=== PATIENT | male | born 1940 | race Caucasian/White ===

== ENCOUNTER 2016-04-13 10:13 | Inpatient (IN) | payer OTHER, MEDICARE ==
[2016-04-13] MEDS ORDERED: IPRATROPIUM-ALBUTEROL 3 ML NEB INHALATION STA (10:38)
--- NOTE | 2016-04-13 10:41 | ED ---
General Adult HPI - General Chief complaint: Shortness of Breath Stated complaint: diff breathing Time Seen by Provider: 04/13/16 10:33 Source: patient, family, RN notes reviewed Mode of arrival: wheelchair Limitations: no limitations - History of Present Illness Initial comments: Patient is a pleasant 76-year-old male presenting to the emergency department with difficulty in breathing. Onset was around 2 days ago. Symptoms have been fairly persistent since that time. Occasional mild cough. No leg pain or leg swelling. No chest pain. No history of similar symptoms previously. No fever. Symptoms do worsen with exertion. - Related Data Allergies Allergy/AdvReac Type Severity Reaction Status Date / Time No Known Allergies Allergy Verified 04/13/16 10:20 Review of Systems ROS Statement: Those systems with pertinent positive or pertinent negative responses have been documented in the HPI. ROS Other: All systems not noted in ROS Statement are negative. Constitutional: Denies: fever, chills Eyes: Denies: eye pain ENT: Denies: ear pain Respiratory: Reports: dyspnea Cardiovascular: Denies: chest pain Endocrine: Reports: fatigue Gastrointestinal: Denies: abdominal pain Genitourinary: Denies: dysuria Musculoskeletal: Denies: back pain Skin: Denies: rash Neurological: Denies: weakness Past Medical History Past Medical History: Hyperlipidemia, Osteoarthritis (OA) Additional Past Medical History / Comment(s): back pain History of Any Multi-Drug Resistant Organisms: None Reported Past Surgical History: Joint Replacement Additional Past Surgical History / Comment(s): bilateral knee replacement, cataract removal Past Psychological History: No Psychological Hx Reported Smoking Status: Former smoker Past Alcohol Use History: Occasional Past Drug Use History: None Reported General Exam Limitations: no limitations General appearance: alert, in no apparent distress Head exam: Present: atraumatic Eye exam: Present: normal appearance, PERRL ENT exam: Present: normal oropharynx Neck exam: Present: normal inspection Respiratory exam: Present: rales (Right base) Cardiovascular Exam: Present: regular rate, normal rhythm GI/Abdominal exam: Present: soft. Absent: tenderness Extremities exam: Present: normal inspection. Absent: pedal edema, calf tenderness Neurological exam: Present: alert Psychiatric exam: Present: normal affect, normal mood Skin exam: Absent: rash Course Vital Signs 04/13/16 04/13/16 04/13/16 10:17 10:56 11:10 Temperature 97.5 F L Pulse Rate 94 105 H 105 H Respiratory 20 Rate Blood Pressure 117/64 O2 Sat by Pulse 93 L Oximetry EKG Findings - EKG Comments: EKG Findings:: Sinus tachycardia 106. CT 128. QRS 98. QT 346. QTc 459. Normal axis. Normal QRS. Lateral ST depression. Medical Decision Making - Medical Decision Making Patient reexamined and resting comfortably in bed. Patient still remained somewhat short of breath. Patient and family updated on results and plan. Patient presents with non-ST elevation PA and congestive heart failure. Patient likely infarcted over the past couple of days. Patient does admit to having some upper back pain recently over still denies ever having chest discomfort. Case was discussed in detail with Dr. Strong, who will admit for Dr. Perez. Case also discussed with Dr. Ramirez who will consult and recommends stat echo. Admission orders placed. Heparin started. - Lab Data Result diagrams: 04/13/16 10:43 04/13/16 09:00 Lab Results 04/13/16 04/13/16 04/13/16 Range/Units 09:00 09:00 10:43 WBC 11.7 H (3.8-10.6) k/uL RBC 4.87 (4.30-5.90) m/uL Hgb 14.6 (13.0-17.5) gm/dL Hct 43.7 (39.0-53.0) % MCV 89.8 (80.0-100.0) fL MCH 30.1 (25.0-35.0) pg MCHC 33.5 (31.0-37.0) g/dL RDW 13.5 (11.5-15.5) % Plt Count 200 (150-450) k/uL Neutrophils % 78 % Lymphocytes % 13 % Monocytes % 6 % Eosinophils % 1 % Basophils % 0 % Neutrophils # 9.1 H (1.3-7.7) k/uL Lymphocytes # 1.5 (1.0-4.8) k/uL Monocytes # 0.7 (0-1.0) k/uL Eosinophils # 0.1 (0-0.7) k/uL Basophils # 0.0 (0-0.2) k/uL Sodium 140 (137-145) mmol/L Potassium 4.3 (3.5-5.1) mmol/L Chloride 107 (98-107) mmol/L Carbon Dioxide 21 L (22-30) mmol/L Anion Gap 12 mmol/L BUN 23 H (9-20) mg/dL Creatinine 1.06 (0.66-1.25) mg/dL Est GFR (MDRD) Af Amer >60 (>60 ml/min/1.73 sqM) Est GFR (MDRD) Non-Af >60 (>60 ml/min/1.73 sqM) Glucose 134 H (74-99) mg/dL Calcium 8.6 (8.4-10.2) mg/dL Total Bilirubin 1.7 H (0.2-1.3) mg/dL AST 92 H (17-59) U/L ALT 71 (21-72) U/L Alkaline Phosphatase 68 (38-126) U/L Total Creatine Kinase 221 H (55-170) U/L CK-MB (CK-2) 26.3 H* (0.0-2.4) ng/mL CK-MB (CK-2) Rel Index 11.9 Troponin I 3.820 H* (0.000-0.034) ng/mL NT-Pro-B Natriuret Pep pg/mL Total Protein 6.8 (6.3-8.2) g/dL Albumin 3.8 (3.5-5.0) g/dL 04/13/16 Range/Units 10:43 WBC (3.8-10.6) k/uL RBC (4.30-5.90) m/uL Hgb (13.0-17.5) gm/dL Hct (39.0-53.0) % MCV (80.0-100.0) fL MCH (25.0-35.0) pg MCHC (31.0-37.0) g/dL RDW (11.5-15.5) % Plt Count (150-450) k/uL Neutrophils % % Lymphocytes % % Monocytes % % Eosinophils % % Basophils % % Neutrophils # (1.3-7.7) k/uL Lymphocytes # (1.0-4.8) k/uL Monocytes # (0-1.0) k/uL Eosinophils # (0-0.7) k/uL Basophils # (0-0.2) k/uL Sodium (137-145) mmol/L Potassium (3.5-5.1) mmol/L Chloride (98-107) mmol/L Carbon Dioxide (22-30) mmol/L Anion Gap mmol/L BUN (9-20) mg/dL Creatinine (0.66-1.25) mg/dL Est GFR (MDRD) Af Amer (>60 ml/min/1.73 sqM) Est GFR (MDRD) Non-Af (>60 ml/min/1.73 sqM) Glucose (74-99) mg/dL Calcium (8.4-10.2) mg/dL Total Bilirubin (0.2-1.3) mg/dL AST (17-59) U/L ALT (21-72) U/L Alkaline Phosphatase (38-126) U/L Total Creatine Kinase (55-170) U/L CK-MB (CK-2) (0.0-2.4) ng/mL CK-MB (CK-2) Rel Index Troponin I (0.000-0.034) ng/mL NT-Pro-B Natriuret Pep 8880 pg/mL Total Protein (6.3-8.2) g/dL Albumin (3.5-5.0) g/dL - Radiology Data Radiology results: image reviewed (A history concerning for congestive heart failure) Critical Care Time Critical Care Time: Yes Total Critical Care Time: 34 Disposition Clinical Impression: Congestive heart failure, NSTEMI (non-ST elevated myocardial infarction) Disposition: ADMITTED IP TO THIS [facility] Condition: Serious
[2016-04-13 10:56] LABS: Basophils % (A) 0 %; CH 31.2; CHCM 34.9; Eosinophils # (A) 0.1 k/uL (0-0.7); Eosinophils % (A) 1 %; HCT 43.7 % (39.0-53.0); HDW 2.58; HGB 14.6 gm/dL (13.0-17.5); Luc # (Auto) 0.21; Luc % (Auto) 2; Lymphocytes # (A) 1.5 k/uL (1.0-4.8); Lymphocytes % (A) 13 %; MCH 30.1 pg (25.0-35.0); MCHC 33.5 g/dL (31.0-37.0); MCV 89.8 fL (80.0-100.0); Mean Platelet Volume 6.8; Monocytes # (A) 0.7 k/uL (0-1.0); Monocytes % (A) 6 %; Neutrophils # (A) 9.1 k/uL (1.3-7.7); Neutrophils % (A) 78 %; RBC 4.87 m/uL (4.30-5.90); RDW 13.5 % (11.5-15.5); WBC 11.7 k/uL (3.8-10.6); WBC (Perox) 11.94
[2016-04-13 11:06] LABS: INR 1.1 (<1.1); Partial Thromboplastin Time 26.6 sec (22.0-30.0); Prothrombin Time 10.7 sec (9.0-12.0)
[2016-04-13 11:13] LABS: ALT 71 U/L (21-72); AST 92 U/L (17-59); Alkaline Phosphatase 68 U/L (38-126); Anion Gap 12 mmol/L; Blood Urea Nitrogen 23 mg/dL (9-20); Calcium 8.6 mg/dL (8.4-10.2); Carbon Dioxide 21 mmol/L (22-30); Chloride 107 mmol/L (98-107); Glucose 134 mg/dL (74-99); Non-African American GFR(MDRD) >60 (>60 ml/min/1.73 sqM); Potassium 4.3 mmol/L (3.5-5.1); Sodium 140 mmol/L (137-145); Total Bilirubin 1.7 mg/dL (0.2-1.3); Total Protein 6.8 g/dL (6.3-8.2)
--- NOTE | 2016-04-13 11:26 | XR ---
EXAMINATION TYPE: XR chest 2V DATE OF EXAM: 04/13/2016 11:18 AM COMPARISON: 11/17/2010 HISTORY: Shortness of breath TECHNIQUE: Frontal and lateral views of the chest are obtained. FINDINGS: Scattered senescent parenchymal changes noted. Hyperinflation compatible with COPD. No evidence for infiltrate. No evidence for atelectasis. There is pulmonary venous congestion with mild interstitial edema and cardiomegaly. Small effusions n oted as well. Mediastinal structures are stable and grossly unremarkable. No evidence for hilar prominence. Degenerative changes dorsal spine. IMPRESSION: 1. Mild congestive failure.
[2016-04-13 11:38] LABS: Creatine Kinase MB 26.3 ng/mL (0.0-2.4); Troponin I 3.82 ng/mL (0.000-0.034)
[2016-04-13] MEDS ORDERED: HEPARIN SODIUM,PORCINE 5,000 UNIT/ML 1 ML VIAL IV PRN (11:47)
[2016-04-13] MEDS ORDERED: ASPIRIN 81 MG CHEW PO STA (11:47)
[2016-04-13] MEDS ORDERED: FUROSEMIDE 10 MG/ML 4 ML VIAL IV STA (11:47)
[2016-04-13] MEDS ORDERED: NITROGLYCERIN OINT 1 INCH/GM PACKET TOPICAL STA (11:47)
[2016-04-13] MEDS ORDERED: HEPARIN SODIUM,PORCINE 5,000 UNIT/ML 1 ML VIAL IV ONE (11:47)
[2016-04-13] MEDS ORDERED: NITROGLYCERIN SL TABS 0.4 MG TAB SUBLINGUAL PRN (11:52)
[2016-04-13] MEDS ORDERED: NITROGLYCERIN OINT 1 INCH/GM PACKET TOPICAL SCH (12:00)
[2016-04-13] MEDS: HEPARIN SODIUM,PORCINE/D5W PMX 25,000 UNIT in DEXTROSE/WATER 1 500ML.BAG IV SCH (12:21)
[2016-04-13] MEDS ORDERED: RX INFO: IV CONTRAST WAS GIVEN 1 EACH MISC MISCELLANE PRN (12:29)
[2016-04-13] MEDS ORDERED: MORPHINE SULFATE 2 MG/ML SYRINGE IVP ONE (12:30)
--- NOTE | 2016-04-13 13:27 | CT ---
EXAMINATION TYPE: CT angio chest DATE OF EXAM: 04/13/2016 1:18 PM COMPARISON: NONE HISTORY: Patient having difficulty breathing for the past [address] DLP: 982.10 mGycm CONTRAST: CT chest with contrast and 3D reconstruction with MIP imaging is performed with IV Contrast, patient injected with 100 mL of Omnipaque 350. Contrast-enhanced CT of the chest was performed through the course of the pulmonary arteries with yessy g and mediastinal window settings submitted. 3D reconstruction with MIP imaging was also performed. PULMONARY ARTERIES: The pulmonary arteries and their major tributaries are patent. I do not see sherrill dence for sizable filling defect to suggest pulmonary embolic process. LUNGS: Bilateral low small pleural effusions with compressive atelectasis. Nonspecific scattered grou ndglass infiltrates. MEDIASTINUM: Thoracic aorta is of normal caliber . The heart is mildly enlarged. No evidence for me diastinal mass. No mediastinal lymph nodes greater than 1cm. HILAR STRUCTURES: No evidence for mass. No hilar lymph nodes greater than 1 cm. UPPER ABDOMEN: No significant abnormality is seen. IMPRESSION: 1. No evidence for Pulmonary embolism at this time.
--- NOTE | 2016-04-13 14:42 | CONS ---
DATE OF CONSULTATION: Aditya Mccracken is a patient who seeks his health care at the [facility]. He sees Joel Jorgensen physician's anesthesiologist assistant certified. He came in because of increasing shortness of breath that is going on for 3 to 4 days. He is obese. He does not smoke, but does consume alcohol. He came in with increasing shortness of breath and also complained of some fluttering sensation and also palpitations. He has absolutely no chest discomfort. After arrival, he was found to be in congestive heart failure, elevated troponin was noted and I was asked to see him. Upon my arrival to see him, the patient was in significant heart failure. I gave 40 mg of Lasix and 2 mg of morphine in addition to heparinization. He immediately felt better and he is doing much better. It is unclear if this history is only of 2 days duration or it is longer but the patient is unable to give me exact history. Denies chest pain. Has shortness of breath and also some palpitations. At the time of my evaluation, he was quite short of breath, but subsequently he showed improvement. PAST MEDICAL HISTORY: Very limited history is available from the patient. He claims he has no known major medical problems and that he does not take any regular prescription medications. However, the patient is not a very reliable historian. He does have history of osteoarthritis, status post bilateral knee arthroplasty, cataract surgery, hyperlipidemia, but no documented evidence of myocardial infarction or CVA or diabetes. ALLERGIES: NONE. REVIEW OF SYSTEMS: Suggest increasing shortness of breath lately. Has no hematemesis or melena, genitourinary symptoms, fever with chills. He has quit smoking several years ago. Consumes alcohol occasionally and yesterday he did consume rather heavily. On examination, the blood pressure is 118/70, pulse rate is about 110 per minute, sinus tachycardia. HEENT: Unremarkable. Fundus was not examined by me. The patient is quite short of breath. Neck is supple. JVD is 2 cm. No carotid bruit. Heart exam reveals S1, S2 with ejection systolic murmur at the base of the heart, second heart sound is preserved. Lungs revealed bilateral diffuse rales. ABDOMEN: Soft, nontender. Lower extremities reveal diminished pulses. No edema. Central nervous system is normal. EKG revealed a sinus mechanism with diffuse, nonspecific ST-T changes and LVH by voltage criteria, poor R wave progression over the precordial leads. Chest x-ray revealed mild congestive heart failure-type picture. LABORATORY DATA: Suggests that the troponin is elevated up to 3.8. BNP is elevated to over 8000. IMPRESSION: 1. Exacerbation of congestive heart failure. 2. Probable aortic stenosis based on my examination. 3. Rule out any pulmonary embolism since the onset seems to be just 2 days only. 4. Non-ST elevation myocardial infarction. RECOMMENDATIONS: In addition to full heparinization, I am recommending 2 mg of morphine and 40 mg of Lasix to improve his symptoms. Obtain echocardiogram and based on clinical course, I will make further recommendations. I will consider cardiac catheterization in the next day or so. We will also obtain serial troponins levels. Thank you very much for the consult.
[2016-04-13] MEDS ORDERED: LOSARTAN 50 MG TAB PO STA (16:19)
[2016-04-13 16:56] LABS: Creatine Kinase MB 22.5 ng/mL (0.0-2.4); Troponin I 4.76 ng/mL (0.000-0.034)
[2016-04-13] MEDS: FUROSEMIDE 10 MG/ML 4 ML VIAL IV SCH (17:20)
[2016-04-13] MEDS: CARVEDILOL 3.125 MG TAB PO SCH (17:20)
[2016-04-13] MEDS ORDERED: traMADol 50 MG TAB PO PRN (20:17)
[2016-04-13] MEDS ORDERED: HYDROmorphone 1 MG/ML 1 ML SYRINGE IVP PRN (20:18)
[2016-04-13] MEDS ORDERED: LORazepam 0.5 MG TAB PO PRN (20:18)
[2016-04-13] MEDS ORDERED: TEMAZEPAM 15 MG CAP PO PRN (20:18)
[2016-04-13] MEDS: ATORVASTATIN 40 MG TAB PO SCH (22:19)
[2016-04-13 22:39] LABS: Creatine Kinase MB 14.6 ng/mL (0.0-2.4); Troponin I 5.17 ng/mL (0.000-0.034)
[2016-04-14] MEDS: FUROSEMIDE 10 MG/ML 4 ML VIAL IV SCH ×3 (02:08→11:29)
[2016-04-14 03:46] LABS: Basophils % (A) 0 %; CH 30.9; CHCM 33.6; Eosinophils # (A) 0.1 k/uL (0-0.7); Eosinophils % (A) 1 %; HDW 2.55; HGB 13.1 gm/dL (13.0-17.5); Luc # (Auto) 0.21; Luc % (Auto) 2; Lymphocytes # (A) 1.7 k/uL (1.0-4.8); Lymphocytes % (A) 17 %; MCH 30.3 pg (25.0-35.0); MCHC 32.7 g/dL (31.0-37.0); MCV 92.6 fL (80.0-100.0); Mean Platelet Volume 6.9; Monocytes # (A) 0.8 k/uL (0-1.0); Monocytes % (A) 8 %; Neutrophils # (A) 7.2 k/uL (1.3-7.7); Neutrophils % (A) 72 %; RBC 4.32 m/uL (4.30-5.90); RDW 13.8 % (11.5-15.5); WBC (Perox) 10.04
[2016-04-14 04:13] LABS: Calcium 8.4 mg/dL (8.4-10.2); Potassium 4.1 mmol/L (3.5-5.1)
[2016-04-14] MEDS: PANTOPRAZOLE 40 MG TABLET PO SCH (06:42)
[2016-04-14] MEDS: CARVEDILOL 3.125 MG TAB PO SCH (06:42)
[2016-04-14] MEDS: ASPIRIN 325 MG TAB PO SCH (08:19)
[2016-04-14] MEDS: FINASTERIDE 5 MG TAB PO SCH (08:19)
--- NOTE | 2016-04-14 08:58 | ECHOF ---
Referral Reason:chf,nstemi MEASUREMENTS -------- HEIGHT: 170.2 cm WEIGHT: 108.9 kg BP: IVSd: 1.4 cm (0.6 - 1.1) LVIDd: 6.6 cm (3.9 - 5.3) LVPWd: 1.4 cm (0.6 - 1.1) IVSs: 1.6 cm LVIDs: 5.9 cm LVPWs: 1.2 cm LAESV Index (A-L): 39.56 ml/m Ao Diam: 4.0 cm (2.0 - 3.7) MV EXCURSION: 18.615 mm (> 18.000) MV EF SLOPE: 80 mm/s (70 - 150) EPSS: 0.7 cm MV E Harsh: 0.71 m/s MV DecT: 206 ms MV A Harsh: 0.77 m/s MV E/A Ratio: 0.93 AV maxP.15 mmHg AV meanP.71 mmHg RAP: 5.00 mmHg RVSP: 21.42 mmHg FINDINGS -------- Undetermined rhythm. This was a technically adequate study. The left ventricle is moderately dilated. There is mild concentric left ventricular hypertrophy. There is moderate global hypokinesis of LV . Overall left ventricular systolic function is severely impaired with, an EF between 20 - 25 %. The right ventricle is normal in size. LA is severely dilated >40 ml/m2 The right atrial size is normal. Moderate Aov Stenosis with a Max pg gradient of 42.15mmhg and mean gradient of 27.71mmhg. Mild mitral annular calcification present. Mild mitral regurgitation is present. Mild tricuspid regurgitation present. There is no evidence of pulmonary hypertension. The right ventricular systolic pressure, as measured by Doppler, is 21.42mmHg. Trace/mild (physiologic) pulmonic regurgitation. Can not exclude possible Thrombus in RA. The aortic root size is normal. There is a small, generalized pericardial effusion present. CONCLUSIONS -------- 1. The left ventricle is moderately dilated. 2. There is no evidence of pulmonary hypertension. 3. The right ventricular systolic pressure, as measured by Doppler, is 21.42mmHg. 4. Trace/mild (physiologic) pulmonic regurgitation. 5. Can not exclude possible Thrombus in RA. 6. The aortic root size is normal. 7. There is a small, generalized pericardial effusion present. 8. There is mild concentric left ventricular hypertrophy. 9. There is moderate global hypokinesis of LV . 10. Overall left ventricular systolic function is severely impaired with, an EF between 20 - 25 %. 11. LA is severely dilated >40 ml/m2 12. Moderate Aov Stenosis with a Max pg gradient of 42.15mmhg and mean gradient of 27.71mmhg. 13. Mild mitral annular calcification present. 14. Mild mitral regurgitation is present. 15. Mild tricuspid regurgitation present. CROP NUTRITION SCIENTIST: Chloe Ellis RDCS
[2016-04-14] MEDS ORDERED: LOSARTAN 50 MG TAB PO SCH (09:00)
[2016-04-14] MEDS ORDERED: ISOSORBIDE MONONITRATE ER 30 MG TAB.ER.24H PO SCH (09:00)
[2016-04-14] MEDS ORDERED: DOXAZOSIN 4 MG TAB PO SCH (09:00)
[2016-04-14] MEDS ORDERED: NIACIN TR 500 MG CAPSULE.ER PO SCH (09:00)
[2016-04-14] MEDS ORDERED: LOSARTAN 25 MG TAB PO SCH (09:51)
[2016-04-14] MEDS: CYANOCOBALAMIN 500 MCG TAB PO SCH (11:10)
[2016-04-14] MEDS: CHOLECALCIFEROL 1,000 UNIT TAB PO SCH (11:11)
[2016-04-14] MEDS: HEPARIN SODIUM,PORCINE/D5W PMX 25,000 UNIT in DEXTROSE/WATER 1 500ML.BAG IV SCH (11:11)
[2016-04-14] MEDS: MULTIVITAMINS, THERA 1 EACH TAB PO SCH (11:11)
--- NOTE | 2016-04-14 11:42 | HP ---
DATE OF ADMISSION: CHIEF COMPLAINT: Shortness of breath and difficulty in breathing. HISTORY OF PRESENT ILLNESS: This 76-year-old gentleman with a past history of multiple medical problems including hyperlipidemia, history of degenerative joint disease, history of back pain, history of left knee replacement being followed by the [facility] and Dr. Saucedo in the outpatient setting was complaining of shortness of breath for the last 2 days. Last night the patient was not able to sleep according to him. The patient had increasing shortness of breath with exertion and patient unable to sleep last night and was drinking hard liquor according to him. There is no significant fever, rigors. No history of headache, loss of consciousness, seizures. In the ER the patient was evaluated with multiple evaluations and d-dimer was found to be elevated 0.73. Troponin is elevated to 4.760 and BNP is elevated at 8880 indicating acute non-ST segment elevation myocardial infarction, as well as congestive heart failure. Cardiology evaluation is in progress. EKG showed nonprogression of R waves and multiple abnormalities including ST changes. The chest x-ray was reported as mild congestive heart failure. The 2-D echo is pending at this time and the patient also had a CTA, which showed no evidence of pulmonary embolism. Cardiology evaluated the patient and is considering possible cardiac catheterization. There is no history of fever, rigors. No history of headache, loss of consciousness or seizures. PAST MEDICAL HISTORY: History of hypertension, history of degenerative joint disease, history of back pain. MEDICATIONS PRIOR TO ADMISSION: 1. Vitamin B12 2.5 mg p.o. daily. 2. Vitamin D3 1000 units daily. 3. Aspirin 81 mg daily. 4. Ultram 50 mg q.6 p.r.n. 5. Fish oil 4 capsules daily. 6. Multivitamin 1 p.o. daily. 7. Meloxicam 15 mg p.o. daily. 8. Zocor 80 mg q.h.s. 9. Niacin 500 mg p.o. daily. 10. Proscar 5 mg p.o. daily. 11. Cardura 4 mg p.o. daily. ALLERGIES: None. FAMILY HISTORY: No history of heart disease or strokes in the family. SOCIAL HISTORY: Previous history of smoking. No history of alcohol intake. REVIEW OF SYSTEMS: ENT: No diminished hearing or diminished vision. CARDIOVASCULAR: As mentioned earlier. RESPIRATORY: As mentioned earlier. GI: No nausea, vomiting. : No dysuria. NERVOUS SYSTEM: No numbness or weakness. ALLERGY/IMMUNOLOGY: No history of asthma or hayfever. MUSCULOSKELETAL: As mentioned earlier. HEMATOLOGY: No history of anemia. ENDOCRINE: No history or diabetes or hypothyroidism. CONSTITUTIONAL: As mentioned earlier. DERMATOLOGY: Negative. RHEUMATOLOGY: Negative. PSYCHIATRY: As mentioned earlier. PHYSICAL EXAMINATION: The patient is alert and oriented x3. Pulse is 67, blood pressure 130/75, respirations 18, temperature 98.1, pulse ox 90% on 4 L. HEENT: Conjunctivae normal. Oral mucosa moist. NECK: No jugular venous distention. No carotid bruit. No lymph node enlargement. CARDIOVASCULAR: S1 and S2, muffled. Ejection systolic murmur. No S3, no S4. RESPIRATORY: Breath sounds diminished at the bases. A few scattered rhonchi, no crackles. ABDOMEN: Soft, obese, nontender. No mass palpable. LEGS: Minimal edema. NERVOUS SYSTEM: Higher function as mentioned. Moves all four limbs. No focal motor deficits. LYMPHATIC: No lymphadenopathy in the neck, axillae or groin. SKIN: No ulcer, rash or bleeding. LABS: WBC 11.6, hemoglobin 14.2, d-dimer is 0.73 and troponins are 3.80 and 4.760. The NT-proBNP is 8880. ASSESSMENT: 1. Shortness of breath, possible congestive heart failure acute exacerbation ejection fraction unknown. 2. Possible acute non-ST segment elevation myocardial infarction with troponin 4.760, rule out aortic stenosis. 3. Increased BNP. 4. Increased total bilirubin. 5. Increased AST. 6. Increased random blood sugar. 7. Obesity with body mass index 35.9. 8. Increased d-dimer with no evidence of acute pulmonary embolus. 9. Increased WBC, possibly reactive. 10. History of hypertension. 11. History of degenerative joint disease. 12. History of back pain. 13. History of left knee joint replacement. 14. Remote history of nicotine dependence. HISTORY OF PRESENT ILLNESS: This is a 76-year-old gentleman who presented with multiple complex medical issues. I recommend to continue current medications, continue symptomatic treatment. Otherwise, resume the home medications. Will continue the diuretics. Monitor fluid electrolyte balance closely. Closely follow with Cardiology. 2-D echo, possible cardiac catheterization. Prognosis guarded because of multiple complex medical issues. Further recommendations to follow.
[2016-04-14] MEDS ORDERED: LOSARTAN 25 MG TAB PO ONE (12:00)
--- NOTE | 2016-04-14 15:46 | PN ---
Aditya Mccracken is a 76-year-old gentleman with a history of a non-ST elevation LA, congestive heart failure with ejection fraction in the range of 20% to 25% and moderate aortic stenosis. He was more short of breath this morning. We may have diuresed rather aggressively. His weight is down I am recommending that we continue the IV Lasix for the time being and discontinue the nitro paste and also Cardura. This gentleman is advised to have a cardiac catheterization tomorrow. The risks, benefits, options and rationale were explained and discussed. I am suggesting that we will continue the Lasix at 40 mg q.12 hours, continue IV heparin and perform coronary angiography tomorrow. Risks, benefits, options and rationale were explained. Blood pressure today was 100/60, pulse rate is about 80 per minute. There is JVD of 1 to 2 cm. No carotid bruit. S1, S2 are normal. Ejection systolic murmur is audible. Lungs reveal improved air entry. Abdomen lower extremity exam is unchanged. Plan is to discontinue nitro paste and Cardura. Continue the diuresis, but cut down to q.12 hours, perform coronary angiography tomorrow. Prognosis for this patient is not good given his multiple comorbid conditions. I discussed my thoughts in detail with the patient. Thank you very much for the consult.
[2016-04-14] MEDS: ATORVASTATIN 40 MG TAB PO SCH (20:44)
[2016-04-15] MEDS: DOXAZOSIN 1 MG TAB PO SCH (00:20)
[2016-04-15] MEDS: FUROSEMIDE 10 MG/ML 4 ML VIAL IV SCH ×2 (00:20→15:27)
[2016-04-15] MEDS: HEPARIN SODIUM,PORCINE/D5W PMX 25,000 UNIT in DEXTROSE/WATER 1 500ML.BAG IV SCH (00:23)
[2016-04-15 01:46] LABS: Appearance,Urine Clear (Clear); Bilirubin,Urine Negative (Negative); Glucose,Urine (UA) Negative (Negative); Ketones,Urine Negative (Negative); Leukocyte Esterase,Urine Negative (Negative); Nitrite,Urine Negative (Negative); PH, Urine 5.5 (5.0-8.0); Protein,Urine Negative (Negative); Specific Gravity,Urine 1.003 (1.001-1.035); UA Billing (MACRO vs. MICRO) CHEM; Urobilinogen,Urine <2.0 mg/dL (<2.0)
[2016-04-15 06:04] LABS: Basophils # (A) 0.1 k/uL (0-0.2); Basophils % (A) 1 %; CH 30.6; CHCM 33.8; Eosinophils # (A) 0.3 k/uL (0-0.7); Eosinophils % (A) 3 %; HCT 40.7 % (39.0-53.0); HDW 2.64; HGB 13.5 gm/dL (13.0-17.5); Luc # (Auto) 0.24; Luc % (Auto) 3; Lymphocytes # (A) 1.9 k/uL (1.0-4.8); Lymphocytes % (A) 21 %; MCH 30.3 pg (25.0-35.0); MCHC 33.3 g/dL (31.0-37.0); Monocytes # (A) 0.6 k/uL (0-1.0); Monocytes % (A) 7 %; Neutrophils # (A) 6.2 k/uL (1.3-7.7); Neutrophils % (A) 67 %; RBC 4.47 m/uL (4.30-5.90); RDW 13.7 % (11.5-15.5); WBC 9.3 k/uL (3.8-10.6); WBC (Perox) 9.96
[2016-04-15] MEDS: PANTOPRAZOLE 40 MG TABLET PO SCH (06:20)
[2016-04-15] MEDS: ASPIRIN 325 MG TAB PO SCH (06:20)
[2016-04-15] MEDS: FINASTERIDE 5 MG TAB PO SCH (06:21)
[2016-04-15 06:34] LABS: Calcium 8.7 mg/dL (8.4-10.2); Potassium 4.1 mmol/L (3.5-5.1)
--- NOTE | 2016-04-15 10:53 | PN ---
DATE OF SERVICE: 04/14/2016 This 76-year-old gentleman was admitted with shortness of breath with possible CHF acute exacerbation, also had features of acute non-ST segment elevation myocardial infarction. Cardiology is following the patient closely and the patient is on diuretics. A2-D echo with a Doppler showed ejection fraction was 20% to 25% and LV was severe dilated indicating acute on chronic systolic dysfunction, moderate aortic valve stenosis with maximum pg gradient of 42 and mean gradient was 27 was also noted. Mild is also noted. Patient is on diuretics. Cardiology following the patient. Dr. Chalino Ramirez has seen the patient and is recommending continue with IV Lasix and coronary angiography tomorrow. PAST MEDICAL HISTORY: Reviewed. REVIEW OF SYSTEMS: CARDIOVASCULAR: As mentioned earlier. RESPIRATORY: As mentioned earlier. GI: As mentioned earlier. : No dysuria. NERVOUS SYSTEM: No numbness or weakness. Current medications are reviewed and include: 1. Aspirin 325 mg daily. 2. Lipitor 40 mg q.h.s. 3. Vitamin D3 one thousand daily. 4. Vitamin B12 at 2,500 mcg p.o. daily. 5. Cardura 1 mg q.h.s. 6. Proscar 5 mg p.o. daily. 7. Lasix 40 mg IV b.i.d. 8. Heparin. 9. Dilaudid 0.5 q.6 p.r.n. 10. Ativan 0.5 mg q.h.s. 11. Cozaar 25 mg daily. 12. Multivitamin 1 p.o. daily. 13. Nitrostat 0.4 sublingual p.r.n. 14. Protonix 40 mg daily. 15. Restoril 50 mg q.h.s. 16. Ultram 50 mg q.6 p.r.n. PHYSICAL EXAM: Patient is alert and oriented x3. Pulse 68. Blood pressure 97/54, respiration 18. Patient is short of breath with minimal activity, pulse ox 98% on 4 L. Temperature is normal. HEENT: Conjunctivae normal. Oral mucosa moist. NECK: No jugular venous distension, no carotid bruit. CARDIOVASCULAR: S1, S2 muffled. No S3, no S4. RESPIRATORY: Breath sounds diminished at the bases. Bilateral scattered rhonchi, no crackles. ABDOMEN: Soft, obese, nontender. No mass palpable. EXTREMITIES: Legs no edema, no swelling. NERVOUS SYSTEM: Higher functions as mentioned, moves all 4 limbs, no focal motor deficits. LYMPHATICS: No lymph node enlargement in the neck, groin or axillae. SKIN: No ulcerations/bleeding. LABS: APTT 39.1, 41.9, 50.8, creatinine is 1.5, troponin 5.170. ASSESSMENT: 1. Shortness of breath with possible congestive heart failure acute exacerbation, with acute on chronic systolic dysfunction, ejection fraction 20% to 25%, possible ischemic cardiomyopathy. 2. Acute non-ST segment elevation myocardial infarction with troponin 5.170. 3. Moderate aortic valve stenosis with the maximum gradient of 42 and the mean gradient of 27. 4. Rule out ( ) thrombus. 5. Increased BNP. 6. Increased total bilirubin. 7. Increased AST. 8. Increased random blood sugar. 9. Obesity with a body mass index of 35.9. 10. Increased d-dimer with no evidence of acute pulmonary embolus. 11. Increased WBC, possibly reactive. 12. History of hypertension. 13. History of degenerative joint disease. 14. History of back pain. 15. History of left knee replacement. 16. Remote history of nicotine dependence. 17. FULL CODE. RECOMMENDATION: In 76-year-old gentleman who presented with multiple complex medical issues, will monitor the patient closely. Continue with the current medications. Continue with the symptomatic treatment. Otherwise, at this time, I would recommend reduce the dose of Lasix. Otherwise, monitor creatinine closely. Monitor fluid and electrolytes closely. Also a 2-D echo has been noted and Dr. Chalino Ramirez is planning cardiac catheterization. Continue with IV heparin, continue the rest of the medications. Overall prognosis is extremely guarded because of multiple complex medical issues as detailed above. Further recommendations to follow. I would also recommend a UA with micros. MTDD
[2016-04-15] MEDS ORDERED: LIDOCAINE 2% INJ 20 MG/ML (20 ML MDV) ONE (11:04)
[2016-04-15] MEDS: IV FLUID CONTINUATION 1,000 ML IV ONE ×2 (11:13→15:26)
[2016-04-15] MEDS ORDERED: MIDAZOLAM 2 MG/2 ML VIAL ONE (11:24)
[2016-04-15] MEDS ORDERED: diphenhydrAMINE 50 MG/ML 1 ML VIAL ONE (11:24)
[2016-04-15] MEDS ORDERED: diphenhydrAMINE 50 MG/ML 1 ML VIAL IVP ONE (11:30)
[2016-04-15] MEDS ORDERED: MIDAZOLAM 2 MG/2 ML VIAL IV ONE (11:31)
[2016-04-15] MEDS ORDERED: LIDOCAINE 2% INJ 20 MG/ML SQ ONE (11:33)
[2016-04-15] MEDS ORDERED: DIGOXIN 250 MCG/ML 2 ML AMP IVP STA (11:53)
[2016-04-15] MEDS ORDERED: FUROSEMIDE 10 MG/ML 4 ML VIAL ONE (11:55)
[2016-04-15] MEDS ORDERED: FUROSEMIDE 10 MG/ML 4 ML VIAL IV ONE (12:00)
[2016-04-15] MEDS ORDERED: RX INFO: IV CONTRAST WAS GIVEN 1 EACH MISC MISCELLANE PRN (12:01)
[2016-04-15] MEDS ORDERED: IODIXANOL 320 MG/ML 100 ML INTRAARTER ONE (12:01)
[2016-04-15] MEDS ORDERED: SODIUM CHLORIDE 0.9% 1,000 ML IV SCH (12:15)
[2016-04-15 14:33] LABS: Glucose,Whole Blood 116 mg/dL (75-99)
[2016-04-15] MEDS: CYANOCOBALAMIN 500 MCG TAB PO SCH (15:27)
[2016-04-15] MEDS: CHOLECALCIFEROL 1,000 UNIT TAB PO SCH (15:27)
[2016-04-15] MEDS: MULTIVITAMINS, THERA 1 EACH TAB PO SCH (15:27)
--- NOTE | 2016-04-15 17:28 | P.GSCN ---
History of Present Illness Consult date: 04/15/16 Reason for Consult: Triple-vessel coronary artery disease with severe left ventricular dysfunction Requesting physician: Radha Ramirez History of present illness: Patient is a 76 years old gentleman admitted on 04/13/2016 with complaints of back pain and progressive worsening shortness of breath for several days. Patient denies any chest pain. He admits to some palpitations. Patient denies any history of coronary artery disease or myocardial infarction. He is on daily aspirin and statin for hyperlipidemia. Admission diagnosis was congestive heart failure. Workup included a 2-D echo and cardiac catheterization. Patient has an ejection fraction estimated at around 20-25%, moderate aortic valve stenosis, mild mitral valve regurgitation, questionable thrombus in the right atrium, and on cardiac catheterization an occluded right coronary artery with distal left main disease. Cardiothoracic surgical consult was called. Patient presently is relatively feeling better after diuresis. Review of Systems - Cardiovascular Reports dyspnea on exertion - Genitourinary Reports urinary frequency, Reports urinary hesitancy - Musculoskeletal Reports low back pain left: shoulder pain Past Medical History Past Medical History: Hyperlipidemia, Osteoarthritis (OA), Prostate Disorder Additional Past Medical History / Comment(s): back pain History of Any Multi-Drug Resistant Organisms: None Reported Past Surgical History: Joint Replacement Additional Past Surgical History / Comment(s): bilateral knee replacement, cataract removal, cardiac catheterization this admission Past Psychological History: No Psychological Hx Reported Smoking Status: Former smoker Past Alcohol Use History: Occasional Past Drug Use History: None Reported Medications and Allergies Home Medications Medication Instructions Recorded Confirmed Type Aspirin 81 mg PO DAILY 04/13/16 04/13/16 History Cholecalciferol [Vitamin D3] 1,000 unit PO DAILY 04/13/16 04/13/16 History Cyanocobalamin [Vitamin B-12] 2,500 mcg PO DAILY 04/13/16 04/13/16 History Doxazosin [Cardura] 4 mg PO DAILY 04/13/16 04/13/16 History Finasteride [Proscar] 5 mg PO DAILY 04/13/16 04/13/16 History Meloxicam 15 mg PO DAILY 04/13/16 04/13/16 History Multivitamin [Men's Multi-Vitamin] 1 tab PO DAILY 04/13/16 04/13/16 History Niacin 500 mg PO DAILY 04/13/16 04/13/16 History [place]-3 Fatty Acids/Fish Oil [Fish 4 cap PO DAILY 04/13/16 04/13/16 History Oil 1,000 mg Softgel] Simvastatin [Zocor] 80 mg PO HS 04/13/16 04/13/16 History traMADol HCL [Ultram] 50 mg PO Q6HR PRN 04/13/16 04/13/16 History Allergies Allergy/AdvReac Type Severity Reaction Status Date / Time No Known Allergies Allergy Verified 04/13/16 14:06 Surgical - Exam Vital Signs Temp Pulse Resp BP Pulse Ox 97.5 F L 94 20 117/64 93 L 04/13/16 10:17 04/13/16 10:17 04/13/16 10:17 04/13/16 10:17 04/13/16 10:17 - Cardiovascular Abnormal Heart Sounds: systolic murmur - Abdomen Obese. Diastasis rectus abdominis with epigastric hernia Bilateral knees incisions. No peripheral edema. No varicose veins. Diminished distal pulses. Results - Labs 04/15/16 05:47 04/15/16 05:47 Abnormal Lab Results - Last 24 Hours (Table) 04/15/16 04/15/16 04/15/16 Range/Units 05:47 05:47 14:30 APTT 48.9 H (22.0-30.0) sec BUN 42 H (9-20) mg/dL Creatinine 1.61 H (0.66-1.25) mg/dL Glucose 121 H (74-99) mg/dL POC Glucose (mg/dL) 116 H (75-99) mg/dL Diabetes panel 04/15/16 Range/Units 05:47 Sodium 143 (137-145) mmol/L Potassium 4.1 (3.5-5.1) mmol/L Chloride 104 (98-107) mmol/L Carbon Dioxide 28 (22-30) mmol/L BUN 42 H (9-20) mg/dL Creatinine 1.61 H (0.66-1.25) mg/dL Glucose 121 H (74-99) mg/dL Calcium 8.7 (8.4-10.2) mg/dL Thyroid panel 04/15/16 Range/Units 05:47 TSH 2.150 (0.465-4.680) mIU/L Calcium panel 04/15/16 Range/Units 05:47 Calcium 8.7 (8.4-10.2) mg/dL Pituitary panel 04/15/16 04/15/16 Range/Units 05:47 05:47 Sodium 143 (137-145) mmol/L Potassium 4.1 (3.5-5.1) mmol/L Chloride 104 (98-107) mmol/L Carbon Dioxide 28 (22-30) mmol/L BUN 42 H (9-20) mg/dL Creatinine 1.61 H (0.66-1.25) mg/dL Glucose 121 H (74-99) mg/dL Calcium 8.7 (8.4-10.2) mg/dL TSH 2.150 (0.465-4.680) mIU/L Adrenal panel 04/15/16 Range/Units 05:47 Sodium 143 (137-145) mmol/L Potassium 4.1 (3.5-5.1) mmol/L Chloride 104 (98-107) mmol/L Carbon Dioxide 28 (22-30) mmol/L BUN 42 H (9-20) mg/dL Creatinine 1.61 H (0.66-1.25) mg/dL Glucose 121 H (74-99) mg/dL Calcium 8.7 (8.4-10.2) mg/dL - Imaging Additional studies: Peaked troponin at 5.170 , proBNP above 8880, TSH 2.1. 2-D echo showed moderately dilated left ventricle with an EF between 20-25%, mild MR with moderate aortic valve stenosis with a mean gradient of 27 mmHg, no pulmonary hypertension CTA of the chest ruled out any pulmonary embolism, aortic valve is calcified with normal ascending aorta Assessment and Plan Plan: 76 years old gentleman with significant triple-vessel coronary artery disease, occluded right coronary artery was distal left main disease, severe left ventricular dysfunction, mild mitral valve regurgitation, moderate aortic valve stenosis, non-ST elevation myocardial infarction, acute congestive heart failure , mild chronic kidney disease, obesity, moderate alcohol consumption. 2-D echo mentioned questionable right atrial thrombus. I will be discussing the case with Dr. Ramirez. Patient candidate for high risk coronary artery bypass grafting, aortic valve replacement with a bioprosthesis, exclusion of his left atrial appendage, likely this admission, after an interval of medical optimization. We will initiate preoperative workup. Patient may need KAYCEE to better elucidate the questionable right atrial thrombus and to rule out any significant mitral valve regurgitation. Thank you for the privilege of this consult
[2016-04-15] MEDS ORDERED: MD COMMUNICATION TO PHARMACY 1 EACH MISC PO ONE ×2 (17:30)
[2016-04-15] MEDS ORDERED: ENOXAPARIN 100 MG/ML SYRINGE SQ STA (17:52)
[2016-04-15] MEDS: THIAMINE 100 MG TAB PO SCH (18:24)
--- NOTE | 2016-04-15 18:32 | P.CNPUL ---
History of Present Illness Consult date: 04/15/16 Chief complaint: Shortness of breath, coronary artery disease, aortic valve stenosis History of present illness: 76-year-old male patient, a , with known history of kyphoscoliosis of the thoracic spine along with obesity and severe degenerative arthritis, who claims to be in a good state of health and he was doing activities of daily life including slow cleaning few weeks back. The patient started experiencing worsening shortness of breath over this past few days. He denied having any chest pain. He was having some palpitations. No history of any previous asthma or emphysema. No previous history of corneal artery disease or congestion heart failure. The patient came into the hospital and further workup showed impaired left ventricular ejection fraction of 20-25% along with moderate degree of aortic valve stenosis, mild mitral regurgitation and questionable thrombus within the right atrium. Cardiac catheter position was completed and it showed left main disease. The patient was admitted to the intensive care unit. He was given a dose of Lovenox. He was started on diuretics and he is ordered to have 40 mg IV Lasix every 12 hours he had his borderline hypotensive yet he is producing adequate amount of urine output. Renal function is impaired with a creatinine of 1.6. No chest pain. No change in mental status. No history of swelling in lower extremities. No reported DVT or pulmonary embolism. CTA of the chest was done and there is no evidence of pulmonary embolism. There was bilateral small pleural effusions and compressive atelectasis in lung bases and some nonspecific scattered groundglass pulmonary infiltrates likely secondary to CHF. Review of Systems 12 point review of system was done and the positive findings are almost above in history of present illness Past Medical History Past Medical History: Hyperlipidemia, Osteoarthritis (OA), Prostate Disorder Additional Past Medical History / Comment(s): Obesity, scoliosis of the spine, BPH, chronic back pain, osteoarthritis, hyperlipidemia History of Any Multi-Drug Resistant Organisms: None Reported Past Surgical History: Joint Replacement Additional Past Surgical History / Comment(s): bilateral knee replacement, cataract removal, cardiac catheterization this admission Past Psychological History: No Psychological Hx Reported Smoking Status: Former smoker Past Alcohol Use History: Occasional Past Drug Use History: None Reported Medications and Allergies Home Medications Medication Instructions Recorded Confirmed Type Aspirin 81 mg PO DAILY 04/13/16 04/13/16 History Cholecalciferol [Vitamin D3] 1,000 unit PO DAILY 04/13/16 04/13/16 History Cyanocobalamin [Vitamin B-12] 2,500 mcg PO DAILY 04/13/16 04/13/16 History Doxazosin [Cardura] 4 mg PO DAILY 04/13/16 04/13/16 History Finasteride [Proscar] 5 mg PO DAILY 04/13/16 04/13/16 History Meloxicam 15 mg PO DAILY 04/13/16 04/13/16 History Multivitamin [Men's Multi-Vitamin] 1 tab PO DAILY 04/13/16 04/13/16 History Niacin 500 mg PO DAILY 04/13/16 04/13/16 History [place]-3 Fatty Acids/Fish Oil [Fish 4 cap PO DAILY 04/13/16 04/13/16 History Oil 1,000 mg Softgel] Simvastatin [Zocor] 80 mg PO HS 04/13/16 04/13/16 History traMADol HCL [Ultram] 50 mg PO Q6HR PRN 04/13/16 04/13/16 History Allergies Allergy/AdvReac Type Severity Reaction Status Date / Time No Known Allergies Allergy Verified 04/13/16 14:06 Physical Exam Vitals: Vital Signs Temp Pulse Pulse Pulse Resp BP BP 04/15/16 18:00 84 20 104/58 04/15/16 17:45 87 44 H 104/58 04/15/16 17:30 88 30 H 87/53 04/15/16 17:15 88 20 87/63 04/15/16 17:00 90 17 90/55 04/15/16 16:45 97 20 90/55 04/15/16 16:30 91 20 86/48 04/15/16 16:15 90 20 81/47 04/15/16 16:00 92 21 104/65 04/15/16 15:45 87 24 104/65 04/15/16 15:30 91 34 H 100/74 04/15/16 15:15 88 32 H 100/74 04/15/16 15:00 83 21 112/77 04/15/16 14:45 97.7 F 87 20 112/77 04/15/16 14:30 97.7 F 87 14 04/15/16 14:01 97.8 F 82 18 04/15/16 13:30 97.6 F 86 18 04/15/16 13:15 84 18 04/15/16 13:00 82 18 04/15/16 12:45 84 18 04/15/16 12:30 97.4 F L 84 18 04/15/16 08:22 96.8 F L 82 18 04/15/16 08:00 82 18 04/15/16 06:16 89 117/71 04/15/16 04:00 96.8 F L 87 18 99/66 04/15/16 00:00 92 18 04/14/16 20:00 97.8 F 86 18 98/60 BP Pulse Ox 04/15/16 18:00 97 04/15/16 17:45 97 04/15/16 17:30 94 L 04/15/16 17:15 94 L 04/15/16 17:00 96 04/15/16 16:45 97 04/15/16 16:30 98 04/15/16 16:15 95 04/15/16 16:00 95 04/15/16 15:45 96 04/15/16 15:30 97 04/15/16 15:15 96 04/15/16 15:00 97 04/15/16 14:45 97 04/15/16 14:30 112/77 04/15/16 14:01 97/64 96 04/15/16 13:30 95/62 96 04/15/16 13:15 93/61 96 04/15/16 13:00 98/66 95 04/15/16 12:45 104/62 95 04/15/16 12:30 99/64 95 04/15/16 08:22 96/55 95 04/15/16 08:00 04/15/16 06:16 04/15/16 04:00 95 04/15/16 00:00 107/61 93 L 04/14/16 20:00 94 L Intake and Output 04/15/16 04/15/16 04/15/16 06:59 14:59 22:59 Intake Total 499.44 75 300 Output Total 1265 1250 400 Balance -765.56 -1175 -100 Intake: IV 75 300 Sodium Chloride 0.9% 1, 300 000 ml @ 75 mls/hr IV . [id number] [facility] Rx#:[id number] Oral 0 Other 499.44 Output: Urine 1265 1250 400 Other: Voiding Method Toilet Toilet Urinal Urinal Urinal # Voids 1 # Bowel Movements 0 Weight 119.9 kg 119.9 kg Patient Weight 04/16/16 06:59 Weight 119.9 kg Obese, comfortable, not in acute distress.Head exam was generally normal. There was no scleral icterus or corneal arcus. Mucous membranes were moist. Neck veins are slightly distended. The patient is a supple neck and there is no report or neck masses. Lungs sounds are diminished and there is bibasilar crackles. There is also some scattered expiratory wheezes. Breath sounds are diminished bilaterally. Heart sounds are regular, there is a systolic ejection murmur grade 2/6 heard at the left apex. No radiation. Abdomen is obese soft nontender. There is no organomegaly. No direct tenderness no rebound tenderness or guarding. Extremities are showing trace edema and there is no cyanosis or clubbing. Scar of a previous right knee surgery is seen to be dry clean and intact. Neurologically the patient is alert and oriented Results - Laboratory Findings CBC and BMP: 04/15/16 05:47 04/15/16 05:47 PT/INR, D-dimer PT 10.7 sec (9.0-12.0) 04/13/16 10:43 INR 1.1 (<1.1) 04/13/16 10:43 D-Dimer 0.73 mg/L FEU (<0.60) H 04/13/16 10:43 Abnormal lab findings: Abnormal Labs 04/13/16 04/13/16 04/14/16 15:51 21:46 03:36 APTT BUN 34 H Creatinine 1.50 H Glucose 119 H POC Glucose (mg/dL) Total Creatine Kinase 203 H CK-MB (CK-2) 22.5 H* 14.6 H* Troponin I 4.760 H* 5.170 H* 04/14/16 04/14/16 04/14/16 03:36 10:29 16:18 APTT 39.1 H 41.9 H 50.8 H BUN Creatinine Glucose POC Glucose (mg/dL) Total Creatine Kinase CK-MB (CK-2) Troponin I 04/15/16 04/15/16 04/15/16 05:47 05:47 14:30 APTT 48.9 H BUN 42 H Creatinine 1.61 H Glucose 121 H POC Glucose (mg/dL) 116 H Total Creatine Kinase CK-MB (CK-2) Troponin I - Diagnostic Findings Chest x-ray: image reviewed CT scan - chest: image reviewed Assessment and Plan Plan: Assessment 1 shortness of breath essentially of a cardiac in nature. 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 CTA of the chest shows changes consistent with CHF with small bilateral pleural effusion and groundglass pulmonary infiltrates consistent with interstitial edema/CHF. 2 coronary artery disease, referred to the cardiac cath report 3 CHF with an ejection fraction of 20-25% 4 questionable right atrial thrombus 5 scoliosis of the thoracic spine 6 benign prostatic hypertrophy on a combination of Proscar and Cardura 7 hyperlipidemia. 8 osteoarthritis 9 kidney failure, acute versus chronic. Rule out secondary to cardiorenal syndrome. We will monitor the renal function and look for contrast nephropathy. 10 obesity Plan Agree with gentle diuresis. Continue the patient on 40 mg IV Lasix every 12 hours as long as blood pressure remains stable. Repeat blood work including electrodes and renal function in a.m. Watch for in the contrast nephropathy. The patient has some increased shortness of breath and wheezing and this is a cardiac wheeze related to CHF and interstitial edema. We'll put him on albuterol about treatments 4 times a day. We'll check a baseline spirometry once the patient's breathing condition is further optimized. The patient meanwhile will need some sort of anticoagulation. Lovenox is adequate for now as long as the patient's renal function remains stable. Otherwise we need to switch him to IV heparin. Keep aspirin. Keep high dose statins. We'll continue to follow. He will need further optimization of CHF and renal function prior to considering surgery/thoracotomy/valve surgery and bypass. We' ll continue to follow. Keep the patient ICU for now.
[2016-04-15] MEDS ORDERED: ALBUTEROL NEBULIZED 2.5 MG/3 ML INHALATION PRN (18:41)
[2016-04-15 20:59] LABS: Calcium 8.8 mg/dL (8.4-10.2); Phosphorous 4.8 mg/dL (2.5-4.5); Potassium 4.1 mmol/L (3.5-5.1)
[2016-04-15] MEDS: MUPIROCIN 2% OINT 22 GM TUBE NASAL SCH (22:29)
[2016-04-15] MEDS: ATORVASTATIN 40 MG TAB PO SCH (22:29)
--- NOTE | 2016-04-15 23:18 | CC ---
DATE OF SERVICE: 04/15/2016 PROCEDURE: Left heart catheterization and coronary angiography. PERFORMED BY: Dr. Chalino Ramirez. CLINICAL INFORMATION: Mr. Aditya Mccracken is a 76-year-old gentleman with a known history of hyperlipidemia, degenerative joint disease and benign prosthetic hypertrophy. He is under the care of the [facility] at [place], [place]. However, he came into the hospital with increasing shortness of breath, was found to be in congestive heart failure. Clinically he had evidence of moderate aortic stenosis, CHF, and [id number] [place]. After stabilizing him, I advised cardiac catheterization with the understanding that he may have significant CAD. Echocardiogram revealed ejection fraction in the range of 25% with a global decrease in contractility and mild enlargement of the left ventricle. Risks, benefits, options and rationale regarding the cardiac catheterization were explained to the patient and his family. PROCEDURE NOTE: Under local anesthesia and strict aseptic precautions, a 6 Serbian introducer was placed in the right femoral artery. Using standard Jules catheters I performed coronary angiography, and using a pigtail catheter I checked LV pressures, but LV gram was not performed. Patient tolerated the procedure well without complications. LV end-diastolic pressure was quite elevated. I gave him 40 mg of Lasix IV push and also the sheath was pulled manually and pressure applied to the groin. FemoStop will be applied. Patient tolerated the procedure well. The echocardiogram, which was a transthoracic echo, revealed a questionable thrombus in the right atrium, but CT angiography was negative for pulmonary embolism. This may need to be verified via KAYCEE echo. CARDIAC CATHETERIZATION FINDINGS: The left ventricular end-diastolic pressure was 28 mmHg, and there was a gradient of about 24 mmHg across the aortic valve. On the echocardiogram, the mean gradient was 27 mmHg. CORONARY ANGIOGRAPHY FINDINGS RIGHT CORONARY ARTERY: This is technically a dominant vessel, totally occluded, seen as a stump, with some late filling by ipsilateral collaterals coming from a left atrial circumflex branch. This appears to be a chronic occlusion. LEFT MAIN CORONARY ARTERY: This is a long vessel which has a distal left main lesion of nearly 70% to 75%. Just before bifurcation there is a 75% lesion in the left main and then it bifurcates into LAD and circumflex. Left main therefore has a 70% to 75% distal lesion before bifurcation. Ostium of the left main has mild disease. There is mild calcification. LEFT ANTERIOR DESCENDING CORONARY ARTERY: This vessel very proximally has a calcified area and a stenosis of at least 70% and then a diagonal branch comes off. There is post-stenotic dilatation and a second diagonal branch comes off and then it runs all the way to the apex, supplying a sizable amount of myocardium. Proximal LAD therefore has a 70% eccentric calcified lesion which is very difficult to visualize, and multiple views were obtained. The two diagonal branches do not have significant disease, but there is minor diffuse irregularity. LEFT POSTERIOR CIRCUMFLEX CORONARY ARTERY: Non-dominant vessel gives off a small branch that runs in the AV groove and then there is a single obtuse marginal branch. Circumflex is free of significant disease and has mild calcification and is a graftable vessel. LEFT VENTRICULOGRAM: This was not performed. COLLATERAL CIRCULATION: There were fair collaterals filling the distal RCA coming from the left system. FINAL IMPRESSION: This patient has a total occlusion of RCA which is a chronic occlusion. There is a 70% to 75% distal left main disease, 70% proximal LAD disease, heavily calcified and eccentric. Non-dominant circumflex has minor irregularities. There are fair collateral that opacify the distal branches of RCA. This patient also has moderate aortic stenosis and significant left ventricular dysfunction based on echocardiogram with elevated filling pressures. RECOMMENDATIONS: I am recommending aortic valve replacement with a 2-vessel bypass to LAD and also to the circumflex marginal and, if possible, to the RCA. However, this is a high-risk procedure, given patient's multiple comorbid conditions, including mild renal dysfunction, type 2 diabetes, hypertension, obesity and significant LV dysfunction with dilatation. I explained the findings in detail to the patient and family. Will request Dr. Toledo to see the patient, and in the meantime we will stabilize him and I will also perform a transesophageal echocardiogram to assess his aortic valve and also to look at the right atrium as well.
[2016-04-16] MEDS: DOXAZOSIN 1 MG TAB PO SCH ×2 (01:34→22:31)
[2016-04-16] MEDS: FUROSEMIDE 10 MG/ML 4 ML VIAL IV SCH ×2 (01:34→10:54)
[2016-04-16 05:38] LABS: Basophils % (A) 0 %; CH 31.1; CHCM 34.5; Eosinophils # (A) 0.1 k/uL (0-0.7); Eosinophils % (A) 2 %; HCT 40.1 % (39.0-53.0); HDW 2.63; HGB 13.3 gm/dL (13.0-17.5); Luc # (Auto) 0.16; Luc % (Auto) 2; Lymphocytes # (A) 1.5 k/uL (1.0-4.8); Lymphocytes % (A) 18 %; MCH 30.1 pg (25.0-35.0); MCHC 33.2 g/dL (31.0-37.0); MCV 90.4 fL (80.0-100.0); Mean Platelet Volume 7.6; Monocytes # (A) 0.7 k/uL (0-1.0); Monocytes % (A) 8 %; Neutrophils # (A) 5.7 k/uL (1.3-7.7); Neutrophils % (A) 70 %; RBC 4.44 m/uL (4.30-5.90); RDW 13.6 % (11.5-15.5); WBC 8.2 k/uL (3.8-10.6); WBC (Perox) 8.11
[2016-04-16 05:46] LABS: ALT 70 U/L (21-72); AST 36 U/L (17-59); Alkaline Phosphatase 71 U/L (38-126); Anion Gap 11 mmol/L; Blood Urea Nitrogen 35 mg/dL (9-20); Calcium 8.8 mg/dL (8.4-10.2); Carbon Dioxide 27 mmol/L (22-30); Chloride 104 mmol/L (98-107); Glucose 106 mg/dL (74-99); Non-African American GFR(MDRD) 46 (>60 ml/min/1.73 sqM); Potassium 4.2 mmol/L (3.5-5.1); Sodium 142 mmol/L (137-145); Total Bilirubin 1.2 mg/dL (0.2-1.3); Total Protein 6.2 g/dL (6.3-8.2)
[2016-04-16 05:58] LABS: INR 1.1 (<1.1); Partial Thromboplastin Time 26.5 sec (22.0-30.0); Prothrombin Time 10.9 sec (9.0-12.0)
[2016-04-16 06:17] LABS: Hepatitis B Surface Ag Index 0.06
[2016-04-16 06:22] LABS: Hepatitis B Core IgM Index 0.02
[2016-04-16 06:34] LABS: Hepatitis C Virus IgG Index 0.02
[2016-04-16 06:35] LABS: Hepatitis C Virus IgG Ab Negative (Negative)
--- NOTE | 2016-04-16 07:28 | PN ---
DATE OF SERVICE: 04/15/2016 This is a 76-year-old gentleman who was admitted with shortness of breath and CHF acute exacerbation, also had features of acute myocardial infarction. Cardiology performed cardiac catheterization showed triple vessel coronary artery disease and as well as aortic valve stenosis. Dr. Toledo and Dr. Sales are following the patient closely. Dr. Toledo is planning CABG and aortic valve replacement with bioprosthesis and exclusion of the left atrial appendage after medical optimization. The patient will be closely monitored in the ICU. The patient is still short of breath. No chest pain or palpitation. PAST MEDICAL HISTORY: Reviewed. REVIEW OF SYSTEMS: CARDIOVASCULAR: As mentioned earlier. RESPIRATORY: No cough. GI: No nausea. : No dysuria. NERVOUS SYSTEM: No numbness or weakness. Current medications are reviewed and include: 1. Ventolin q.i.d. and p.r.n. 2. Aspirin 81 mg. 3. Lipitor 40 mg. 4. Peridex . 5. Vitamin D3. 6. Vitamin B12. 7. Cardura 1 mg q.h.s. 8. Proscar 5 mg daily. 9. Lasix 40 mg b.i.d. 10. Dilaudid. 11. Multivitamins. 12. Bactroban. 13. Protonix. 14. Restoril. 15. Vitamin B1. 16. Ultram. PHYSICAL EXAMINATION: The patient is alert and oriented x2. Pulse is 87, blood pressure is 104/58, respirations 44, temperature normal, pulse ox 97% on room air. HEENT: Conjunctivae normal. Oral mucosa moist. NECK: No jugular venous distention. No carotid bruit. No lymph node enlargement. CARDIOVASCULAR: S1 and S2, muffled. No S3, no S4. RESPIRATORY: Breath sounds diminished at the bases. A few rhonchi, no crackles. ABDOMEN: Soft, nontender. LEGS: No edema, no swelling. NERVOUS SYSTEM: No focal deficits. Labs are at this time show CBC within normal limits. Creatinine is 1.61. ASSESSMENT: 1. Shortness of breath with possible congestive heart failure acute exacerbation with acute on chronic systolic dysfunction, ejection fraction 20% to 25%, possible ischemic cardiomyopathy. 2. Status post cardiac catheterization, triple vessel coronary artery disease. 3. Acute non-ST elevation myocardial infarction with troponin 5.170. 4. Moderate aortic valve stenosis and maximum gradient of 42 and mean 27. 5. Acute renal failure, possible prerenal. 6. Increased BNP. 7. Increased total bilirubin. 8. Increased AST. 9. Increased random blood sugar. 10. Obesity with body mass index of 35.9. 11. Increased D-dimer with no evidence of pulmonary embolus. 12. Increased WBC, possibly reactive. 13. History of hypertension. 14. History of degenerative joint disease. 15. History of back pain. 16. History of left knee replacement. 17. Remote history of nicotine dependence. 18. FULL CODE. RECOMMENDATIONS AND DISCUSSION: Recommend to continue current medications. Continue with symptomatic treatment. Continue with beta blockers, Ecotrin. Will continue to monitor. Monitor fluid electrolyte balance closely. I would recommend to continue the diuretics cautiously and continue to monitor. Otherwise, cardiothoracic surgery opinion CABG plus aortic valve replacement. Prognosis guarded. Dr. Sales for ICU management. Guarded prognosis because of multiple complex medical issues. Further recommendations to follow.
[2016-04-16] MEDS: MUPIROCIN 2% OINT 22 GM TUBE NASAL SCH ×2 (08:56→22:32)
--- NOTE | 2016-04-16 09:06 | XR ---
EXAMINATION TYPE: XR chest 1V DATE OF EXAM: 04/16/2016 6:58 AM COMPARISON: 04/13/2016 HISTORY: 76-year-old male follow-up CHF TECHNIQUE: Single frontal view of the chest is obtained. FINDINGS: Heart remains mildly enlarged with diffuse interstitial and vascular prominence and indistinctness of the pulmonary vasculature. More confluent patchy opacities at the lung bases redemonstrated with a s mall left pleural effusion. IMPRESSION: Relatively stable CHF with interstitial pulmonary edema. Small left pleural effusion with adjacent at electasis and/or consolidation.
[2016-04-16] MEDS: METOPROLOL TARTRATE 12.5 MG TAB PO SCH ×2 (09:30→22:31)
[2016-04-16 10:23] LABS: Hemoglobin A1C 5.2 % (4.2-6.1)
--- NOTE | 2016-04-16 10:37 | US ---
EXAMINATION TYPE: US carotid duplex BILAT DATE OF EXAM: 04/16/2016 10:11 AM COMPARISON: NONE CLINICAL HISTORY: Pre-op CABG EXAM MEASUREMENTS: RIGHT: Peak Systolic Velocity (PSV) cm/sec ----- Right CCA: 64.4 ----- Right ICA: 68.5 ----- Right ECA: 112.6 ICA/CCA ratio: 1.1 RIGHT: End Diastole cm/sec ----- Right CCA: 21.8 ----- Right ICA: 21.1 ----- Right ECA: 10.5 LEFT: Peak Systolic Velocity (PSV) cm/sec ----- Left CCA: 60.4 ----- Left ICA: 56.4 ----- Left ECA: 60.3 ICA/CCA ratio: 0.9 LEFT: End Diastole cm/sec ----- Left CCA: 18.6 ----- Left ICA: 12.8 ----- Left ECA: 4.9 VERTEBRALS (direction of flow): Right Vertebral: Antegrade Left Vertebral: Antegrade IMPRESSION: I do not see evidence of a hemodynamically significant stenosis in either carotid system. Criteria for Assigning % of Stenosis / Diameter reduction (Estimation based on the indirect measurements of the internal carotid artery velocities (ICA PSV). 1. Normal (no stenosis)=ICA PSV < 125 cm/s: ratio < 2.0: ICA EDV<40 cm/s. 2. Less than 50% stenosis=ICA PSV < 125 cm/s: ratio < 2.0: ICA EDV<40 cm/s. 3. 50 to 69% stenosis=ICA PSV of 125 to 230 cm/s: ration 2.0 ? 4.0: ICA EDV 40-100 cm/s. 4. Greater than 70% stenosis to near occlusion= ICA PSV > 230 cm/s: ratio > 4.0: ICA EDV > 100 cm/s. 5. Near occlusion= ICA PSV velocities may be low or undetectable: variable ratio and ICA EDV. 6. Total occlusion=unable to detect flow.
--- NOTE | 2016-04-16 11:02 | P.PN ---
Subjective Principal diagnosis: Coronary artery disease, triple vessel, severe left ventricular dysfunction This is a very pleasant 76-year-old gentleman who follows with as his primary care physician along with the [facility]. He has a history of kyphoscoliosis of the thoracic spine, morbid obesity, severe degenerative arthritis. He denied any previous history of COPD/emphysema is a remote history of smoking quit 50 years ago. No prior history of coronary artery disease. He had presented here on 04/13/2016 with increasing shortness of breath and left arm pain. He had subsequent undergone undergone cardiac catheterization that revealed triple-vessel disease including left main disease. He also has impaired left ventricular systolic function with estimated ejection fraction of 20-25%. There is also moderate degree of aortic valve stenosis. He was seen and evaluated by Dr. Toledo. The plan is for coronary artery bypass grafting, aortic valve replacement and exclusion of his left atrial appendage. The patient is high risk. He is seen again today in follow-up in the intensive care unit. He is awake and alert in no acute distress. He denies any chest discomfort. No worsening shortness of breath, cough or congestion. His chest x-ray did reveal some evidence of fluid volume overload. He had been initiated on IV furosemide and remains in a negative balance. He is maintaining O2 saturations in the mid to upper 90s on 3 L/m per nasal cannula. He is afebrile. He remains hemodynamically stable. Objective - Vital Signs Vital signs: Vital Signs Temp 97.4 F L 04/16/16 08:00 Pulse 82 04/16/16 10:00 Resp 13 04/16/16 10:00 BP 104/71 04/16/16 10:00 Pulse Ox 96 04/16/16 10:00 Intake & Output 04/15/16 04/16/16 04/16/16 18:59 06:59 18:59 Intake Total 375 682 40 Output Total 1650 600 Balance -1275 82 40 Weight 119.9 kg 119.9 kg Intake: IV 375 445 40 Sodium Chloride 0.9% 1, 300 445 40 000 ml @ 75 mls/hr IV . [id number] ADAM Rx#:[id number] Oral 237 Output: Urine 1650 600 Other: Voiding Method Urinal Urinal # Voids 2 1 # Bowel Movements 0 1 - Exam GENERAL EXAM: Morbidly obese. Alert, comfortable in no apparent distress. HEAD: Normocephalic. EYES: Normal reaction of pupils, equal size. NOSE: Clear with pink turbinates. THROAT: No erythema or exudates. NECK: No masses, no JVD. CHEST: No chest wall deformity. LUNGS: Equal air entry with faint crackles in the posterior bases. CVS: S1 and S2 normal with audible murmurs, regular rhythm. ABDOMEN: Obese, soft, normal bowel sounds, no guarding or rigidity. SPINE: Kyphoscoliosis SKIN: No rashes CENTRAL NERVOUS SYSTEM: No focal deficits, tone is normal in all 4 extremities. Extremities: There is trace peripheral edema. No clubbing, no cyanosis. Peripheral pulses are intact. - Labs CBC & Chem 7: 04/16/16 04:58 04/16/16 04:58 Labs: Abnormal Lab Results - Last 24 Hours (Table) 04/15/16 04/15/16 04/16/16 Range/Units 14:30 20:35 04:58 BUN 39 H 35 H (9-20) mg/dL Creatinine 1.77 H 1.47 H (0.66-1.25) mg/dL Glucose 107 H 106 H (74-99) mg/dL POC Glucose (mg/dL) 116 H (75-99) mg/dL Phosphorus 4.8 H (2.5-4.5) mg/dL Troponin I (0.000-0.034) ng/mL Total Protein 6.2 L (6.3-8.2) g/dL Albumin 3.4 L (3.5-5.0) g/dL 04/16/16 Range/Units 04:58 BUN (9-20) mg/dL Creatinine (0.66-1.25) mg/dL Glucose (74-99) mg/dL POC Glucose (mg/dL) (75-99) mg/dL Phosphorus (2.5-4.5) mg/dL Troponin I 3.140 H* (0.000-0.034) ng/mL Total Protein (6.3-8.2) g/dL Albumin (3.5-5.0) g/dL Microbiology - Last 24 Hours (Table) 04/15/16 18:00 Nasal Culture - Preliminary Nasal Swab Assessment and Plan Plan: Impression: #1 Coronary artery disease involving the left main with moderate aortic stenosis and ischemic cardiomyopathy with estimated ejection fraction 25%. #2 Acute exacerbation of her suspected chronic systolic congestive heart failure with estimated ejection fraction 25%. #3 Questionable right apical atrial thrombus. #4 Morbid obesity. 5 Scoliosis of the thoracic spine. #6 Benign prostatic hypertrophy. #7 Hyperlipidemia. #8 Osteoarthritis. #9 Acute on suspected chronic renal failure versus cardiorenal syndrome. Plan: The patient was seen and evaluated by Dr. Sales. His chest x-ray and labs will were reviewed. We'll continue to diurese the patient. He is encouraged again encouraged regarding increased use of the incentive spirometry and cough and deep breathing exercises. A tentative plan for surgery on 04/18/2016. He is currently off anticoagulation. Repeat his chest x-ray, labs in the a.m. We' ll continue to follow make further recommendations based on his clinical status.
[2016-04-16] MEDS ORDERED: fentaNYL (PF) 50 MCG/ML 2 ML AMP ONE (12:33)
[2016-04-16] MEDS ORDERED: MIDAZOLAM 2 MG/2 ML VIAL ONE (12:33)
[2016-04-16] MEDS ORDERED: SODIUM CHLORIDE 0.9% 500 ML IV ONE (12:37)
[2016-04-16] MEDS: BENZOCAINE SPRAY 100 APPLIC/CAN MUCOUS MEM ONE ×2 (12:41→12:43)
[2016-04-16] MEDS ORDERED: fentaNYL (PF) 50 MCG/ML 2 ML AMP IV ONE (12:43)
[2016-04-16] MEDS: MIDAZOLAM 2 MG/2 ML VIAL IVP ONE ×2 (12:43→12:45)
[2016-04-16] MEDS: FINASTERIDE 5 MG TAB PO SCH (13:49)
[2016-04-16] MEDS: CHOLECALCIFEROL 1,000 UNIT TAB PO SCH (13:49)
[2016-04-16] MEDS: ASPIRIN 81 MG CHEW PO SCH (13:49)
[2016-04-16] MEDS: PANTOPRAZOLE 40 MG TABLET PO SCH (13:49)
[2016-04-16] MEDS: CYANOCOBALAMIN 500 MCG TAB PO SCH (13:50)
[2016-04-16] MEDS: MULTIVITAMINS, THERA 1 EACH TAB PO SCH (13:50)
[2016-04-16] MEDS: SODIUM CHLORIDE 0.9% 1,000 ML IV SCH (13:51)
--- NOTE | 2016-04-16 13:56 | P.PN ---
Progress Note - Text CV Surgery Nursing Patient is a 76 years old gentleman admitted on 04/13/2016 with complaints of back pain and progressive worsening shortness of breath for several days. Patient denies any chest pain. He admits to some palpitations. Patient denies any history of coronary artery disease or myocardial infarction. He is on daily aspirin and statin for hyperlipidemia. Admission diagnosis was congestive heart failure. Patient awake and alert, no distress noted. Continued complaints of episodes of shortness of breath. Vital Signs: Afebrile Vital Signs - 24 hr 04/15/16 04/15/16 04/15/16 14:01 14:30 14:45 Temperature 97.8 F 97.7 F 97.7 F Pulse Rate 87 Pulse Rate [ 87 Research Neuropsychologist ] Pulse Rate [ 82 Pulse Oximetery ] Respiratory 18 14 20 Rate Blood Pressure 112/77 Blood Pressure 97/64 112/77 [Right Arm] O2 Sat by Pulse 96 97 Oximetry 04/15/16 04/15/16 04/15/16 15:00 15:15 15:30 Temperature Pulse Rate 83 88 91 Pulse Rate [ Research Neuropsychologist ] Pulse Rate [ Pulse Oximetery ] Respiratory 21 32 H 34 H Rate Blood Pressure 112/77 100/74 100/74 Blood Pressure [Right Arm] O2 Sat by Pulse 97 96 97 Oximetry 04/15/16 04/15/16 04/15/16 15:45 16:00 16:15 Temperature Pulse Rate 87 92 90 Pulse Rate [ Research Neuropsychologist ] Pulse Rate [ Pulse Oximetery ] Respiratory 24 21 20 Rate Blood Pressure 104/65 104/65 81/47 Blood Pressure [Right Arm] O2 Sat by Pulse 96 95 95 Oximetry 04/15/16 04/15/16 04/15/16 16:30 16:45 17:00 Temperature Pulse Rate 91 97 90 Pulse Rate [ Research Neuropsychologist ] Pulse Rate [ Pulse Oximetery ] Respiratory 20 20 17 Rate Blood Pressure 86/48 90/55 90/55 Blood Pressure [Right Arm] O2 Sat by Pulse 98 97 96 Oximetry 04/15/16 04/15/16 04/15/16 17:15 17:30 17:45 Temperature Pulse Rate 88 88 87 Pulse Rate [ Research Neuropsychologist ] Pulse Rate [ Pulse Oximetery ] Respiratory 20 30 H 44 H Rate Blood Pressure 87/63 87/53 104/58 Blood Pressure [Right Arm] O2 Sat by Pulse 94 L 94 L 97 Oximetry 04/15/16 04/15/16 04/15/16 18:00 19:00 20:00 Temperature 98.1 F Pulse Rate 84 90 89 Pulse Rate [ Research Neuropsychologist ] Pulse Rate [ Pulse Oximetery ] Respiratory 20 20 23 Rate Blood Pressure 104/58 102/57 81/56 Blood Pressure [Right Arm] O2 Sat by Pulse 97 93 L 95 Oximetry 04/15/16 04/15/16 04/15/16 21:00 22:00 23:00 Temperature Pulse Rate 97 103 H 98 Pulse Rate [ Research Neuropsychologist ] Pulse Rate [ Pulse Oximetery ] Respiratory 24 26 H 25 H Rate Blood Pressure 90/64 104/75 107/71 Blood Pressure [Right Arm] O2 Sat by Pulse 95 96 96 Oximetry 04/16/16 04/16/16 04/16/16 00:00 01:00 02:00 Temperature 98.1 F Pulse Rate 92 97 93 Pulse Rate [ Research Neuropsychologist ] Pulse Rate [ Pulse Oximetery ] Respiratory 29 H 23 22 Rate Blood Pressure 104/66 96/79 96/64 Blood Pressure [Right Arm] O2 Sat by Pulse 96 96 94 L Oximetry 04/16/16 04/16/16 04/16/16 03:00 04:00 05:00 Temperature 97.6 F Pulse Rate 89 99 91 Pulse Rate [ Research Neuropsychologist ] Pulse Rate [ Pulse Oximetery ] Respiratory 19 21 27 H Rate Blood Pressure 105/67 102/61 103/65 Blood Pressure [Right Arm] O2 Sat by Pulse 94 L 96 95 Oximetry 04/16/16 04/16/16 04/16/16 06:00 07:00 08:00 Temperature 97.4 F L Pulse Rate 86 85 87 Pulse Rate [ Research Neuropsychologist ] Pulse Rate [ Pulse Oximetery ] Respiratory 22 20 45 H Rate Blood Pressure 104/62 111/72 97/61 Blood Pressure [Right Arm] O2 Sat by Pulse 96 97 96 Oximetry 04/16/16 04/16/16 04/16/16 09:00 10:00 11:00 Temperature Pulse Rate 90 82 81 Pulse Rate [ Research Neuropsychologist ] Pulse Rate [ Pulse Oximetery ] Respiratory 34 H 13 32 H Rate Blood Pressure 110/71 104/71 98/64 Blood Pressure [Right Arm] O2 Sat by Pulse 96 96 96 Oximetry 04/16/16 04/16/16 04/16/16 11:11 12:00 12:30 Temperature 97.7 F Pulse Rate 87 Pulse Rate [ Research Neuropsychologist ] Pulse Rate [ Pulse Oximetery ] Respiratory 33 H Rate Blood Pressure 107/68 107/68 Blood Pressure [Right Arm] O2 Sat by Pulse 97 96 Oximetry 04/16/16 04/16/16 13:00 13:30 Temperature Pulse Rate 81 Pulse Rate [ Research Neuropsychologist ] Pulse Rate [ Pulse Oximetery ] Respiratory 23 Rate Blood Pressure 107/68 116/81 Blood Pressure [Right Arm] O2 Sat by Pulse 95 Oximetry Labs: Short CBC 04/16/16 Range/Units 04:58 WBC 8.2 (3.8-10.6) k/uL Hgb 13.3 (13.0-17.5) gm/dL Hct 40.1 (39.0-53.0) % Plt Count 192 (150-450) k/uL Neutrophils # 5.7 (1.3-7.7) k/uL BMP 04/15/16 04/16/16 20:35 04:58 Sodium 141 142 Potassium 4.1 4.2 Chloride 101 104 Carbon Dioxide 30 27 BUN 39 H 35 H Creatinine 1.77 H 1.47 H Glucose 107 H 106 H Calcium 8.8 8.8 Cardiac Enzymes 04/16/16 Range/Units 04:58 Troponin I 3.140 H* (0.000-0.034) ng/mL Liver Function 04/16/16 Range/Units 04:58 Total Bilirubin 1.2 (0.2-1.3) mg/dL AST 36 (17-59) U/L ALT 70 (21-72) U/L Alkaline Phosphatase 71 (38-126) U/L Albumin 3.4 L (3.5-5.0) g/dL IV Fluids: 0.9% normal saline at 20 mL per hour. Lungs: Scattered expiratory wheezes throughout, diminished bilateral bases. Respirations are unlabored, although the patient is having some episodes of shortness of breath with activity. O2 sat: 95% on 3 L nasal cannula. I/S: 6115-9632 mL, reviewed with the patient importance of using his incentive spirometry every hour while awake preoperatively as well as postoperatively. The patient gave a good return demonstration on his use of his incentive spirometry. Heart: S1S2, irregular rhythm with controlled rate, positive systolic murmur, negative for S3 or gallop. Bedside telemetry showing normal sinus rhythm with frequent PACs heart rate 81. The patient is wearing his heart hugger at this time with instructions reviewed for postoperative use. Abdomen: Soft, Positive bowel sounds present in all 4 quadrants. CBGs: 106-121 mg/dL last 24 hours. U/O: Adequate. 24 hr Total: Intake & Output 04/14/16 04/15/16 04/16/16 04/17/16 06:59 06:59 06:59 06:59 Intake Total 927.087 0056.927 1057 245 Output Total 650 2266 2250 1450 Balance -38.927 42.927 -1193 -1205 Weight 120 kg 119.9 kg 119.9 kg 119.9 kg Active Medications Generic Name Dose Route Start Last Admin Trade Name Freq PRN Reason Stop Dose Admin Albuterol Sulfate 2.5 mg 04/15/16 18:41 Ventolin Nebulized INHALATION RT-QID PRN Shortness Of Breath Or Wheezing Aspirin 81 mg 04/15/16 12:07 04/16/16 13:49 Aspirin PO 81 mg DAILY ADAM Administration Atorvastatin Calcium 40 mg 04/13/16 21:00 04/15/16 22:29 Lipitor PO 40 mg HS ADAM Administration Chlorhexidine Gluconate 15 ml 04/18/16 06:00 Peridex MUCOUS MEM 04/18/16 06:01 ONCE ONE Cholecalciferol 1,000 unit 04/14/16 12:00 04/16/16 13:49 Vitamin D3 PO 1,000 unit 1200 ADAM Administration Cyanocobalamin 2,500 mcg 04/14/16 12:00 04/16/16 13:50 Vitamin B-12 PO 2,500 mcg 1200 ADAM Administration Doxazosin Mesylate 1 mg 04/14/16 21:00 04/16/16 01:34 Cardura PO Not Given HS ADAM Finasteride 5 mg 04/14/16 09:00 04/16/16 13:49 Proscar PO 5 mg DAILY ADAM Administration Furosemide 40 mg 04/14/16 12:00 04/16/16 10:54 Lasix IV 40 mg Q12H ADAM Administration Hydromorphone HCl 0.5 mg 04/13/16 20:18 Dilaudid IVP Q6HR PRN Severe Pain Sodium Chloride 1,000 mls @ 20 mls/hr 04/16/16 13:15 04/16/16 13:51 Saline 0.9% IV 20 mls/hr .Q24H ADAM Administration Lorazepam 0.5 mg 04/13/16 20:18 Ativan PO Q8HR PRN Anxiety Metoprolol Tartrate 12.5 mg 04/16/16 09:00 04/16/16 09:30 Lopressor PO 12.5 mg BID ADAM Administration Miscellaneous Information 1 each 04/15/16 12:01 Rx Info: Iv Contrast Was Given MISCELLANE 04/17/16 12:01 DAILY PRN Per Protocol Multivitamins 1 each 04/14/16 12:00 04/16/16 13:50 Theragran PO 1 each 1200 ADAM Administration Mupirocin 1 applic 04/15/16 21:00 04/16/16 08:56 Bactroban Oint NASAL 04/20/16 21:01 1 applic BID ADAM Administration Nitroglycerin 0.4 mg 04/13/16 11:52 Nitrostat SUBLINGUAL Q5M PRN Chest Pain Pantoprazole Sodium 40 mg 04/14/16 07:30 04/16/16 13:49 Protonix PO 40 mg [id number] ADAM Administration Sodium Chloride 10 ml 04/13/16 21:00 04/16/16 08:56 Saline Flush IV Not Given BID ADAM Temazepam 15 mg 04/13/16 20:18 Restoril PO HS PRN Insomnia Thiamine HCl 100 mg 04/15/16 18:00 04/15/16 18:24 Vitamin B-1 PO 100 mg DAILY@1800 ADAM Administration Tramadol HCl 50 mg 04/13/16 20:17 Ultram PO Q6HR PRN Pain Plan: Per Dr. Toledo, the patient is scheduled for coronary artery bypass grafting surgery and aortic valve replacement surgery on , 04/18/2016. The patient is scheduled for a transesophageal echocardiogram today. Metoprolol 12.5 mg by mouth every [address] Agrawal has been contacted for dental clearance and a Panorex x-ray has been obtained. Preoperative instructions has been reviewed with the patient by Dr. Toledo.
[2016-04-16] MEDS: THIAMINE 100 MG TAB PO SCH (16:57)
--- NOTE | 2016-04-16 16:57 | PN ---
This gentleman has significant aortic stenosis, left main disease, total occlusion of RCA, and I am recommending surgery. Prior to that he will have a transesophageal echo today. His creatinine has improved. He is feeling better, breathing easier. Blood pressure 120/70, pulse rate 84 per minute, sinus. S1, S2 heard normally. Ejection systolic murmur audible. Lungs are clear. Abdomen and lower extremity exam unchanged. Plan is to continue current medications, have a KAYCEE echo today and surgery in the next couple of days. He will require aortic valve replacement and bypass surgery. Discussed with the patient, and he will have KAYCEE today.
--- NOTE | 2016-04-16 21:20 | XR ---
EXAMINATION TYPE: XR panorex DATE OF EXAM: 04/16/2016 9:15 PM COMPARISON: NONE HISTORY: Pain TECHNIQUE: Single view FINDINGS: A single Panorex view of the mandible shows no evidence of a fracture. There are a few miss ing lower teeth. I see no focal bone destruction. Visualized maxilla appears intact. There appears to be normal aeration of the maxillary sinuses. IMPRESSION: Negative Panorex view of the mandible.
[2016-04-16] MEDS: ATORVASTATIN 40 MG TAB PO SCH (22:31)
[2016-04-16] MEDS: DOCUSATE 100 MG CAP PO SCH (22:31)
--- NOTE | 2016-04-16 22:47 | PN ---
DATE OF SERVICE: 04/16/2016 This 76-year-old gentleman who was admitted with features of CHF as well as acute urz-LO-tgjgoow-elevation myocardial infarction underwent cardiac catheterization which showed triple-vessel disease and moderate aortic valve regurgitation. The patient underwent KAYCEE today. The results are pending at this time. Cardiovascular Surgery is also evaluating the patient for possible surgery. Patient is short of breath at rest also. Past medical history reviewed. REVIEW OF SYSTEMS: CARDIOVASCULAR SYSTEM: As mentioned earlier. RESPIRATORY SYSTEM: As mentioned earlier. GI: As mentioned earlier. : No dysuria. NERVOUS SYSTEM: No numbness or weakness. Current medications are reviewed and include: 1. Ventolin 2.5 q.i.d. p.r.n. 2. Aspirin 81 mg. 3. Lipitor 40 mg. 4. Peridex. 5. Vitamin D3. 6. Vitamin B12. 7. Colace. 8. Cardura. 9. Proscar. 10. Lasix 40 IV b.i.d. 11. Dilaudid. 12. Ativan. 13. Lopressor. 14. Multivitamins. 15. Atrovent. 16. Nitrostat. 17. Protonix. 18. Restoril. 19. Vitamin B1. 20. Ultram. PHYSICAL EXAMINATION: Patient is alert and oriented x3. Pulse is 81, blood pressure 90/62, respiration 17, temperature normal, pulse ox 92% on room air. HEENT: Conjunctivae normal. Oral mucosa moist. NECK: No jugular venous distention. No carotid bruit. No lymph node enlargement. CARDIOVASCULAR SYSTEM: S1, S2 muffled. Ejection systolic murmur. No S3. No S4. RESPIRATORY SYSTEM: Breath sounds diminished at the bases. A few scattered rhonchi and crackles. ABDOMEN: Soft, obese, nontender. No mass palpable. LEGS: Minimal edema. NERVOUS SYSTEM: Diffusely weak. Chest x-ray, personally reviewed, shows CHF. Labs at this time show creatinine 1.47. Troponin 3.140. ASSESSMENT: 1. Shortness of breath with possible congestive heart failure, acute exacerbation, with acute on chronic systolic dysfunction; ejection fraction 20% to 25%; possible ischemic cardiomyopathy. 2. Status post cardiac catheterization, triple-vessel coronary artery disease. 3. Acute aol-QI-bhbouqi-elevation myocardial infarction with troponin 5.170. 4. Moderate aortic valve stenosis with a maximum gradient of 42 and mean of 27. 5. Acute renal failure, possibly prerenal, improving. 6. Possibly chronic kidney disease, stage II. 7. Increased BNP. 8. Increased total bilirubin. 9. Increased AST. 10. Increased random blood sugar. 11. Obesity; body mass index 35.9. 12. Increased D-dimer with no evidence of pulmonary embolism. 13. Increased white count, possibly reactive. 14. History of hypertension. 15. History of degenerative joint disease. 16. History of back pain. 17. History of left knee replacement. 18. Remote history of nicotine dependence. 19. FULL CODE. RECOMMENDATIONS AND DISCUSSION: In this 76-year-old gentleman who presented with multiple complex medical issues, we will monitor the patient closely, continue the current medications, continue with symptomatic treatment, continue with the diuretics. Monitor fluid/electrolyte balance closely. Chest x-ray showed significant CSF. Monitor creatinine also. Otherwise, continue the rest of the medications, beta blockers. Closely follow with Cardiothoracic Surgery. Further recommendations to follow.
[2016-04-17 05:02] LABS: Basophils # (A) 0.1 k/uL (0-0.2); Basophils % (A) 1 %; CHCM 34.2; Eosinophils # (A) 0.2 k/uL (0-0.7); Eosinophils % (A) 3 %; HCT 40.2 % (39.0-53.0); HDW 2.64; HGB 13.5 gm/dL (13.0-17.5); Luc # (Auto) 0.19; Luc % (Auto) 2; Lymphocytes # (A) 1.4 k/uL (1.0-4.8); Lymphocytes % (A) 17 %; MCH 30.7 pg (25.0-35.0); MCHC 33.7 g/dL (31.0-37.0); MCV 91.1 fL (80.0-100.0); Mean Platelet Volume 7.5; Monocytes # (A) 0.7 k/uL (0-1.0); Monocytes % (A) 8 %; Neutrophils # (A) 5.9 k/uL (1.3-7.7); Neutrophils % (A) 70 %; RBC 4.41 m/uL (4.30-5.90); RDW 13.4 % (11.5-15.5); WBC 8.5 k/uL (3.8-10.6); WBC (Perox) 9.41
[2016-04-17 05:15] LABS: Anion Gap 10 mmol/L; Blood Urea Nitrogen 28 mg/dL (9-20); Calcium 9.1 mg/dL (8.4-10.2); Carbon Dioxide 27 mmol/L (22-30); Chloride 103 mmol/L (98-107); Glucose 112 mg/dL (74-99); Non-African American GFR(MDRD) >60 (>60 ml/min/1.73 sqM); Phosphorous 3.9 mg/dL (2.5-4.5); Potassium 4.3 mmol/L (3.5-5.1); Sodium 140 mmol/L (137-145)
[2016-04-17] MEDS: FUROSEMIDE 10 MG/ML 4 ML VIAL IV SCH ×2 (05:21→14:10)
[2016-04-17] MEDS: PANTOPRAZOLE 40 MG TABLET PO SCH (08:01)
[2016-04-17] MEDS: METOPROLOL TARTRATE 12.5 MG TAB PO SCH ×2 (08:02→20:11)
[2016-04-17] MEDS: FINASTERIDE 5 MG TAB PO SCH (08:02)
[2016-04-17] MEDS: ASPIRIN 81 MG CHEW PO SCH (08:02)
[2016-04-17] MEDS: DOCUSATE 100 MG CAP PO SCH ×2 (08:03→20:11)
[2016-04-17] MEDS: MUPIROCIN 2% OINT 22 GM TUBE NASAL SCH ×2 (08:03→20:11)
--- NOTE | 2016-04-17 08:08 | XR ---
EXAMINATION TYPE: XR chest 1V DATE OF EXAM: 04/17/2016 6:52 AM COMPARISON: 04/13/2016 HISTORY: CHF TECHNIQUE: Single frontal view of the chest is obtained. FINDINGS: Bilateral infiltrate and pleural effusion seen with mild central interstitial prominence w hich is stable. No pneumothorax. IMPRESSION: 1. Bilateral infiltrate and pleural effusion are stable. Mild central venous congestion suggested. Co rrelate clinically.
[2016-04-17] MEDS ORDERED: MD COMMUNICATION TO PHARMACY 1 EACH MISC PO ONE (09:06)
--- NOTE | 2016-04-17 09:55 | P.PN ---
<Bassam Quinones - Last Filed: 04/17/16 09:54> Progress Note - Text CT Surgery The patient is scheduled for a aVR CABG tomorrow. All preoperative orders were placed. Consent was obtained. The Panorex was negative. We are waiting on a dentist evaluation. Also we are still waiting for urinalysis and a urine culture. Those were sent out today. We will continue to follow closely. <James Toledo - Last Filed: 04/17/16 11:50> Progress Note - Text Patient cleared by dental. Creatinine back to normal. High risk AVR/CABG/ EXCLUSION JAYSON in AM 04/18 . No plans at this point for mitral valve repair. Discussed with Dr Ramirez. Risks, benefits and alternatives were discussed with the patient and his . They both understood them and agreed to proceed.
--- NOTE | 2016-04-17 12:06 | P.CON ---
Consult Note - . Consult date: 04/17/16 Assessment/Plan:: Pre-surgical dental consult required prior to scheduled surgery on 04/18/2016. Order by Dr. James Toledo. Intraoral/Extraoral Exam completed. Clincial Findings: No active infection detected on panoramic radiograph or intra/extraorally at this time. No mobility detected. Pt is cleared, dentally , for surgery with no contraindications.
--- NOTE | 2016-04-17 12:21 | P.PCN ---
Date of Procedure: 04/16/16 Preoperative Diagnosis: CAD, aortic stenosis, mitral regurgitation and possible clot in the right atrium. Postoperative Diagnosis: Moderate mitral regurgitation, moderate to severe aortic stenosis, severely impaired LV function. Procedure(s) Performed: KAYCEE Implants: Indications for Procedure: Operative Findings: Description of Procedure: INDICATION : The procedure is performed to assess valvular function and also to rule out any clot in the right atrium. CONSENT: Verbal consent was obtained from the patient PROCEDURE: Patient was brought to the lab in a fasting state. Patient was prepped and draped in the usual fashion. The throat was sprayed with Cetacaine. A lubricated Omni probe was introduced into the oropharynx and was advanced into the esophagus. He shouldn't tolerated the procedure well. Multiple views were obtained both from the esophagus and stomach. FINDINGS: The aortic valve is calcified with restricted opening excursion. By planimetry valve area of 0.7 cm was obtained. The mitral valve appeared to be anatomically normal. There appeared to be central mitral regurgitation which appears to be moderate and probably about 2+. There is no reversal of flow in the pulmonary veins. Left atrial appendage is free of any clot. Left ventricular function is moderately to severely impaired with akinesis of the inferobasal segment. The right ventricle is not well visualized. Right atrium is not well visualized. There is no spontaneous shunt across the interatrial septum. IMPRESSION: #1. Moderate to severe aortic stenosis #2. Moderate mitral regurgitation. #3. Moderate to severe LV dysfunction with akinesis of the inferobasal segment. #4 no clot in the left atrial appendage #5. No spontaneous shunt across the interatrial septum. PLAN: Patient is going to have bypass surgery and possible aortic valve replacement
[2016-04-17] MEDS: CHOLECALCIFEROL 1,000 UNIT TAB PO SCH (12:57)
[2016-04-17] MEDS: CYANOCOBALAMIN 500 MCG TAB PO SCH (12:57)
[2016-04-17] MEDS: MULTIVITAMINS, THERA 1 EACH TAB PO SCH (12:58)
[2016-04-17 15:08] LABS: Appearance,Urine Clear (Clear); Bilirubin,Urine Negative (Negative); Glucose,Urine (UA) Negative (Negative); Ketones,Urine Negative (Negative); Leukocyte Esterase,Urine Negative (Negative); Nitrite,Urine Negative (Negative); PH, Urine 6.5 (5.0-8.0); Protein,Urine Negative (Negative); Specific Gravity,Urine 1.013 (1.001-1.035); UA Billing (MACRO vs. MICRO) CHEM; Urobilinogen,Urine <2.0 mg/dL (<2.0)
--- NOTE | 2016-04-17 15:46 | P.PN ---
Subjective Principal diagnosis: Coronary artery disease, triple vessel, severe left ventricular dysfunction This 76-year-old male patient is awaiting cardiac surgery. The patient be taken for aortic valve replacement and coronary artery bypass surgery and this was done tomorrow. On today's chest x-ray, the patient is still having pulmonary vessel congestion and the patient is still being diuresed with IV Lasix. Renal function has improved. He has no specific complaints. No chest pain. No cough or sputum production. No major swelling in the lower extremities. He had a Panorex and was negative. We are still awaiting the urine analysis and urine cultures. Hemodynamically stable. Objective - Vital Signs Vital signs: Vital Signs Temp 97.9 F 04/17/16 15:00 Pulse 85 04/17/16 15:00 Resp 17 04/17/16 15:00 BP 105/66 04/17/16 15:00 Pulse Ox 95 04/17/16 15:00 Intake & Output 04/16/16 04/17/16 04/17/16 18:59 06:59 18:59 Intake Total 335 714 180 Output Total 4336 628 2844 Balance -1415 314 -1120 Weight 119.9 kg 125 kg 125 kg Intake: IV 335 240 180 0.9 120 240 180 Sodium Chloride 0.9% 1, 40 000 ml @ 75 mls/hr IV . [id number] Rx#:[id number] Oral 474 Output: Urine 3751 913 4956 Other: Voiding Method Urinal Urinal Urinal # Voids 1 1 # Bowel Movements 1 1 - Exam Head exam was generally normal. There was no scleral icterus or corneal arcus. Mucous membranes were moist.Neck was supple and without jugular venous distension, thyromegaly, or carotid bruits. Carotids were easily palpable bilaterally. There was no adenopathy. Lung sounds are diminished and there are some crackles at lung bases bilaterally and there is a systolic ejection murmur grade 2/6 systolic the precordium.Abdominal exam revealed normal bowel sounds. The abdomen was soft, non-tender, and without masses, organomegaly, or appreciable enlargement of the abdominal aorta.Examination of the extremities revealed easily palpable radial, femoral and pedal pulses. There was no cyanosis , clubbing or edema. - Labs CBC & Chem 7: 04/17/16 04:34 04/17/16 04:34 Labs: Abnormal Lab Results - Last 24 Hours (Table) 04/16/16 04/17/16 Range/Units 04:58 04:34 BUN 28 H (9-20) mg/dL Glucose 112 H (74-99) mg/dL Crossmatch See Detail Microbiology - Last 24 Hours (Table) 04/15/16 18:00 Nasal Culture - Final Nasal Swab Assessment and Plan Plan: Assessment 1 shortness of breath essentially of a cardiac in nature. 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 CTA of the chest shows changes consistent with CHF with small bilateral pleural effusion and groundglass pulmonary infiltrates consistent with interstitial edema/CHF. On 04/17/2016, the patient is being seen in follow-up. The patient will be taken to the operating room tomorrow after his condition was optimized somewhat over the past 24 hours. He was diuresed adequately however despite that he still has some evidence of interstitial edema on today's chest x-ray. He is considered to be a high-risk for aVR and CABG and the patient is very much aware. Note that he also has underlying cardiac myopathy with a poor ejection fraction of 20-25%. 2 coronary artery disease, referred to the cardiac cath report 3 CHF with an ejection fraction of 20-25% 4 questionable right atrial thrombus 5 scoliosis of the thoracic spine 6 benign prostatic hypertrophy on a combination of Proscar and Cardura 7 hyperlipidemia. 8 osteoarthritis 9 acute kidney injury, improved 10 obesity Plan This patient is going to be taken to the operating room tomorrow. He is considered to be high risk for developing postoperative Pulmicort complications and cardiac complications in general. He has a component of restrictive lung disease and this is partly related to his obesity and kyphoscoliosis of the chest. Note that the spirometry probably was suboptimal based on the fact that the patient was also in heart failure and his chest x-ray showed obvious interstitial edema. He got diuresed adequately over the past 24 hours. Renal function is normalized. He'll be taken to the operating room. His Panorex is negative. No signs of acute infection or sepsis. He'll be kept in ICU and I' ll be glad to follow-up this patient's care postoperatively.
[2016-04-17] MEDS: THIAMINE 100 MG TAB PO SCH (18:05)
--- NOTE | 2016-04-17 18:10 | PN ---
This patient is a gentleman with aortic stenosis, ischemic cardiomyopathy, significant CAD, going for aortic valve replacement and bypass surgery tomorrow. Hemodynamically stable, doing well. Creatinine has come down to 1.1. Blood pressure today is 108/60. Ejection systolic murmur is audible. JVD is evident. S1, S2 heard normally. Lungs are clear. Abdomen and lower extremity exam unchanged. Ejection systolic murmur is audible. Plan is to continue current medications. He will have surgery tomorrow. Risk is higher than usual, and patient is fully aware of that.
[2016-04-17] MEDS: ATORVASTATIN 40 MG TAB PO SCH (20:11)
[2016-04-17] MEDS: DOXAZOSIN 1 MG TAB PO SCH (20:11)
[2016-04-17] MEDS: SODIUM CHLORIDE 0.9% 1,000 ML IV SCH (20:12)
[2016-04-18 03:20] LABS: Basophils % (A) 0 %; CH 31.2; CHCM 34.2; Eosinophils # (A) 0.3 k/uL (0-0.7); Eosinophils % (A) 3 %; HCT 42.7 % (39.0-53.0); HDW 2.58; HGB 13.9 gm/dL (13.0-17.5); Luc # (Auto) 0.19; Luc % (Auto) 2; Lymphocytes # (A) 2.1 k/uL (1.0-4.8); Lymphocytes % (A) 21 %; MCH 29.9 pg (25.0-35.0); MCHC 32.5 g/dL (31.0-37.0); MCV 91.8 fL (80.0-100.0); Mean Platelet Volume 6.9; Monocytes # (A) 0.6 k/uL (0-1.0); Monocytes % (A) 6 %; Neutrophils # (A) 6.6 k/uL (1.3-7.7); Neutrophils % (A) 67 %; RBC 4.65 m/uL (4.30-5.90); RDW 13.4 % (11.5-15.5); WBC 9.9 k/uL (3.8-10.6); WBC (Perox) 10.65
[2016-04-18 03:32] LABS: ALT 61 U/L (21-72); AST 50 U/L (17-59); Alkaline Phosphatase 66 U/L (38-126); Anion Gap 11 mmol/L; Blood Urea Nitrogen 34 mg/dL (9-20); Calcium 9.1 mg/dL (8.4-10.2); Carbon Dioxide 31 mmol/L (22-30); Chloride 100 mmol/L (98-107); Glucose 115 mg/dL (74-99); Magnesium 1.9 mg/dL (1.6-2.3); Non-African American GFR(MDRD) 54 (>60 ml/min/1.73 sqM); Phosphorous 4.1 mg/dL (2.5-4.5); Potassium 4.1 mmol/L (3.5-5.1); Sodium 142 mmol/L (137-145); Total Protein 6.1 g/dL (6.3-8.2)
[2016-04-18] MEDS ORDERED: Magnesium Replacement Protocol 1 EACH MISC MISCELLANE PRN ×2 (04:35→14:58)
[2016-04-18] MEDS: FUROSEMIDE 10 MG/ML 4 ML VIAL IV SCH ×2 (04:41→20:26)
[2016-04-18] MEDS: MAGNESIUM SULFATE-D5W PMX 1 GM in DEXTROSE/WATER 1 100ML.BAG IVPB SCH ×2 (05:01→06:01)
[2016-04-18] MEDS: MUPIROCIN 2% OINT 22 GM TUBE NASAL SCH (05:02)
[2016-04-18] MEDS: METOPROLOL TARTRATE 12.5 MG TAB PO SCH (05:07)
[2016-04-18] MEDS: ASPIRIN 81 MG CHEW PO SCH (05:07)
[2016-04-18] MEDS ORDERED: SODIUM BICARB 8.4% 50 ML SYR (1 MEQ/ML) IV ONE (06:00)
[2016-04-18] MEDS ORDERED: PROTAMINE SULFATE 10 MG/ML 25 ML VIAL IV ONE ×2 (06:00→08:08)
[2016-04-18] MEDS ORDERED: NITROGLYCERIN-D5W PMX 50 MG in DEXTROSE/WATER 1 250ML.BAG IV ONE (06:00)
[2016-04-18] MEDS ORDERED: CLEVIDIPINE BUTYRATE 25 MG in EMPTY BAG 1 BAG IV ONE (06:00)
[2016-04-18] MEDS ORDERED: HEPARIN SODIUM,PORCINE 5,000 UNIT in SODIUM CHLORIDE 0.9% 500 ML IV ONE (06:00)
[2016-04-18] MEDS ORDERED: ceFAZolin 3 GM in SODIUM CHLORIDE 0.9% 30 ML IVPB ONE (06:00)
[2016-04-18] MEDS ORDERED: NITROGLYCERIN-D5W PMX 25 MG/250 ML BTL IV ONE (06:00)
[2016-04-18] MEDS ORDERED: MD COMMUNICATION TO PHARMACY 1 EACH MISC PO ONE (06:00)
[2016-04-18] MEDS ORDERED: CARDIOPLEGIC SOLN (K+ 16 MEQ/L 1,000 ML with SODIUM BICARB (1 MEQ/ML) 20 ML, LIDOCAINE ... PERFUSION NR ×3 (06:00)
[2016-04-18] MEDS ORDERED: PAPAVERINE 360 MG in SODIUM CHLORIDE 0.9% 90 ML IV ONE (06:00)
[2016-04-18] MEDS ORDERED: HEPARIN SODIUM 1,000 UNIT/ML VIAL IV ONE (06:00)
[2016-04-18] MEDS ORDERED: ALBUMIN HUMAN 25% 50 ML in EMPTY BAG 1 BAG IVPB ONE (06:00)
[2016-04-18] MEDS ORDERED: CHLORHEXIDINE GLUCONATE 15 ML CUP MUCOUS MEM ONE ×2 (06:00)
[2016-04-18] MEDS ORDERED: DEXTROSE 5% IN WATER 1,000 ML with POTASSIUM CHLORIDE 25 MEQ, SODIUM CHLORIDE 4MEQ/ML V... IV SCH ×6 (06:00)
[2016-04-18] MEDS ORDERED: PROPOFOL 500 MG in EMPTY BAG 1 BAG IV ONE (06:00)
[2016-04-18] MEDS ORDERED: ceFAZolin 2,000 MG in SODIUM CHLORIDE 0.9% 30 ML IVPB ONE (06:00)
[2016-04-18] MEDS ORDERED: DEXTROSE 5% IN WATER 1,000 ML with POTASSIUM CHLORIDE 110 MEQ, MAGNESIUM SULFATE 16 MEQ... IV SCH ×5 (06:00)
[2016-04-18] MEDS ORDERED: NOREPINEPHRINE 4 MG in SODIUM CHLORIDE 0.9% 250 ML IV ONE (06:00)
[2016-04-18] MEDS ORDERED: ALBUMIN HUMAN 5% 500 ML in EMPTY BAG 1 BAG IVPB ONE ×6 (06:00)
[2016-04-18] MEDS ORDERED: MAGNESIUM SULFATE SYG 4.06 MEQ/ML SYRINGE IV ONE (06:00)
[2016-04-18] MEDS ORDERED: MANNITOL 25% 12.5 GM/50 ML VIAL IV ONE (06:00)
[2016-04-18] MEDS ORDERED: AMINOCAPROIC ACID 250 MG/ML 20 ML VIAL IV ONE ×2 (06:00→06:02)
[2016-04-18] MEDS ORDERED: PROTAMINE SULFATE 250 MG in EMPTY BAG 1 BAG IV ONE (06:00)
[2016-04-18] MEDS ORDERED: CALCIUM CHLORIDE 100 MG/ML 10 ML SYRINGE IVP ONE (06:00)
[2016-04-18] MEDS ORDERED: INSULIN REGULAR 100 UNIT in SODIUM CHLORIDE 0.9% 100 ML IV ONE (06:00)
[2016-04-18] MEDS ORDERED: PHENYLEPHRINE-0.9% NACL SYG 1 MG/10 ML SYRINGE IV ONE ×4 (06:00)
[2016-04-18] MEDS ORDERED: AMINOCAPROIC ACID 5,000 MG in DEXTROSE 5% IN WATER 50 ML IV ONE ×4 (06:02→06:30)
[2016-04-18] MEDS ORDERED: PHENYLEPHRINE 40 MG in SODIUM CHLORIDE 0.9% 250 ML IV SCH (06:15)
--- NOTE | 2016-04-18 06:25 | PN ---
DATE OF SERVICE: 04/17/2016 This 76-year-old gentleman who was admitted with CHF acute exacerbation, myocardial infarction and 3-vessel coronary artery disease also. The patient also had aortic stenosis. is planning surgery tomorrow. No chest pain or palpitation. No fever. Mild short of breath. On exam, alert and oriented x3. Pulse 78, blood pressure 96/64, respiratory rate 15, temperature normal, pulse ox 97% on 3 L. HEENT: Conjunctivae normal. NECK: No jugular venous distention. CARDIOVASCULAR: S1 and S2, muffled. Ejection systolic murmur. RESPIRATORY: Breath sounds diminished at the bases. Scattered rhonchi and crackles. ABDOMEN: Soft, obese, nontender. LEGS: No edema, no swelling. NERVOUS SYSTEM: Diffusely weak. LABS: CBC within normal limits. Glucose 112. Troponin 3.140. ASSESSMENT: 1. Shortness of breath, possible congestive heart failure acute exacerbation with acute on chronic systolic dysfunction, ejection fraction 20% to 25% possibly ischemic cardiomyopathy, present on admission. 2. Status post cardiac catheterization, triple vessel coronary disease for coronary artery bypass graft. Acute non- ST segment elevation myocardial infarction with troponin 5.170, present on admission. 3. Moderate aortic valve stenosis with maximum gradient 42 and mean of 27. 4. Acute renal failure, possible prerenal, improving. 5. Possible chronic kidney disease stage III. 6. Increased BNP. 7. Increased total bilirubin. 8. Increased AST. 9. Increased random blood sugar. 10. History of obesity, body mass index of 35.9. 11. Increased D-dimer with no evidence of pulmonary embolus. 12. Increased WBC, possibly reactive. 13. Hypertension. 14. Degenerative joint disease. 15. History of back pain. 16. History of left knee replacement. 17. Remote history of nicotine dependence. 18. FULL CODE. RECOMMENDATIONS AND DISCUSSION: This 76-year-old gentleman presented with multiple complex medical issues. We will monitor the patient closely. Continue the current medications. Optimize fluid electrolyte balance closely. Closely follow with Dr. Toledo and multiple consultants. Possible surgery tomorrow including CABG and . Guarded prognosis. Further recommendations to follow. [facility]
[2016-04-18] MEDS ORDERED: HEPARIN SODIUM 1,000 UNIT/ML VIAL ONE (08:08)
[2016-04-18] MEDS ORDERED: VASOPRESSIN 20 UNIT/ML 1 ML VIAL ONE ×2 (08:08→19:42)
[2016-04-18] MEDS ORDERED: SODIUM CHLORIDE 0.9% IRRIGATION ONE (08:08)
[2016-04-18] MEDS ORDERED: MAGNESIUM SULFATE 4 MEQ/ML 2 ML VIAL ONE (08:08)
[2016-04-18] MEDS ORDERED: HEPARIN SODIUM,PORCINE 10,000 UNIT/ML 1 ML VIAL ONE (08:08)
[2016-04-18] MEDS ORDERED: CALCIUM CHLORIDE 100 MG/ML 10 ML SYRINGE ONE (08:08)
[2016-04-18] MEDS ORDERED: ETOMIDATE 2 MG/ML 10 ML VIAL ONE (08:08)
[2016-04-18] MEDS ORDERED: fentaNYL (PF) 50 MCG/ML 50 ML VIAL ONE (08:08)
[2016-04-18] MEDS ORDERED: PHENYLEPHRINE-0.9% NACL SYG 1 MG/10 ML SYRINGE ONE ×2 (08:08→19:42)
[2016-04-18] MEDS ORDERED: HEPARIN SODIUM,PORCINE 5,000 UNIT/ML 1 ML VIAL ONE (08:08)
[2016-04-18] MEDS ORDERED: MIDAZOLAM 2 MG/2 ML VIAL ONE ×2 (08:08→19:42)
[2016-04-18] MEDS ORDERED: POTASSIUM CHLORIDE OPEN HEART 20 MEQ/50 ML BAG IVPB ONE (08:08)
[2016-04-18] MEDS ORDERED: ALBUTEROL INHALER 60 PUFF/8 GM INHALER INHALATION ONE (08:08)
[2016-04-18] MEDS ORDERED: ceFAZolin 1,000 MG VIAL ONE (08:08)
[2016-04-18] MEDS ORDERED: SUCCINYLCHOLINE CHLORIDE VIAL 200 MG/10 ML VIAL IV ONE (08:08)
[2016-04-18] MEDS ORDERED: fentaNYL (PF) 50 MCG/ML 2 ML AMP ONE ×2 (08:08→19:42)
[2016-04-18] MEDS ORDERED: ELECTROLYTE-R (PH 7.4) 1,000 ML IV.SOLN IV ONE (08:08)
[2016-04-18] MEDS ORDERED: SODIUM CHLORIDE 0.9% IRRIG 1,000 ML BTL IRRIGATION ONE ×2 (08:08→19:42)
[2016-04-18] MEDS ORDERED: LIDOCAINE 2% SYG (PF) 100 MG/5 ML ONE (08:08)
[2016-04-18] MEDS ORDERED: PROTAMINE SULFATE 10 MG/ML 5 ML VIAL IV ONE (08:08)
[2016-04-18] MEDS ORDERED: VECURONIUM 10 MG VIAL IV ONE ×2 (08:08→19:42)
[2016-04-18] MEDS ORDERED: SODIUM CHLORIDE 0.9% 99 ML with VASOPRESSIN 20 UNIT IV SCH ×2 (08:15)
[2016-04-18 09:08] LABS: Glucose,Whole Blood 115 mg/dL (75-99)
[2016-04-18] MEDS: DOCUSATE 100 MG CAP PO SCH (09:19)
[2016-04-18] MEDS: FINASTERIDE 5 MG TAB PO SCH (09:19)
[2016-04-18] MEDS: PANTOPRAZOLE 40 MG TABLET PO SCH (09:19)
[2016-04-18] MEDS: ceFAZolin 1,000 MG in SODIUM CHLORIDE 0.9% IRRIGATIO 1,000 ML IRRIGATION ONE ×2 (10:17→15:25)
[2016-04-18 11:02] LABS: Glucose,Whole Blood 152 mg/dL (75-99)
[2016-04-18 11:35] LABS: Glucose,Whole Blood 156 mg/dL (75-99)
[2016-04-18 12:10] LABS: Glucose,Whole Blood 241 mg/dL (75-99)
[2016-04-18 13:03] LABS: Glucose,Whole Blood 264 mg/dL (75-99)
[2016-04-18 13:23] LABS: Glucose,Whole Blood 263 mg/dL (75-99)
[2016-04-18 14:06] LABS: Glucose,Whole Blood 269 mg/dL (75-99)
[2016-04-18 14:34] LABS: Glucose,Whole Blood 230 mg/dL (75-99)
[2016-04-18] MEDS ORDERED: ALBUMIN HUMAN 5% 250 ML in EMPTY BAG 1 BAG IVPB PRN (14:51)
[2016-04-18] MEDS ORDERED: MORPHINE SULFATE 2 MG/ML SYRINGE IVP PRN (14:51)
[2016-04-18] MEDS ORDERED: Phosphorus Replacement Protoco 1 EACH MISC MISCELLANE PRN (14:58)
[2016-04-18] MEDS ORDERED: BENZOCAINE/MENTHOL LOZENG 1 EACH LOZENGE MUCOUS MEM PRN (14:58)
[2016-04-18] MEDS ORDERED: ONDANSETRON 4 MG/2 ML VIAL IVP PRN (14:58)
[2016-04-18] MEDS ORDERED: Potassium Replacement Protocol 1 EACH MISC MISCELLANE PRN (14:58)
[2016-04-18] MEDS ORDERED: CALCIUM GLUCONATE 2,000 MG in SODIUM CHLORIDE 0.9% 100 ML IVPB ONE (14:58)
[2016-04-18 15:21] LABS: Glucose,Whole Blood 189 mg/dL (75-99)
[2016-04-18 15:41] LABS: Glucose,Whole Blood 165 mg/dL (75-99)
[2016-04-18] MEDS: IPRATROPIUM-ALBUTEROL 3 ML NEB INHALATION SCH ×3 (15:52→23:03)
[2016-04-18] MEDS: CLEVIDIPINE BUTYRATE 25 MG in EMPTY BAG 1 BAG IV SCH (15:52)
[2016-04-18] MEDS: SODIUM CHLORIDE 0.9% 99 ML with VASOPRESSIN 20 UNIT IV SCH ×4 (15:53→21:58)
[2016-04-18] MEDS ORDERED: ceFAZolin 3 GM in SODIUM CHLORIDE 0.9% 100 ML IVPB SCH (16:00)
[2016-04-18] MEDS: INSULIN REGULAR 100 UNIT in SODIUM CHLORIDE 0.9% 100 ML IV SCH (16:20)
[2016-04-18] MEDS ORDERED: ALBUMIN HUMAN 5% 250 ML IVPB ONE ×2 (16:43→18:34)
--- NOTE | 2016-04-18 16:48 | XR ---
EXAMINATION TYPE: XR chest 1V portable DATE OF EXAM: 04/18/2016 4:40 PM COMPARISON: Prior chest x-ray March HISTORY: TECHNIQUE: Single frontal view of the chest is obtained. FINDINGS: Patient is status post median sternotomy. Endotracheal tube is superimposed over the trach eal air column. Left and right chest tubes are in place, right jugular central venous catheter is pre sent, distal tip in the pulmonary artery. No evident pneumothorax or sizable effusion. The heart is e nlarged. Mediastinal drain is noted. Patchy basilar density is noted, lung volumes are low. Central v ascularity somewhat prominent. There is obscured left hemidiaphragm. IMPRESSION: Postop changes. Basilar atelectasis, there may be small associated effusion, lung markin gs are low. Follow-up recommended.
[2016-04-18 16:55] LABS: ABG Base Excess -1.9 mmol/L; ABG HCO3 23 mmol/L (21-25); ABG PCO2 43 mmHg (35-45); ABG PH 7.35 (7.35-7.45); ABG PO2 67 mmHg (83-108); ABG TCO2 24 mmol/L (19-24)
[2016-04-18] MEDS: PROPOFOL 500 MG in EMPTY BAG 1 BAG IV SCH (17:00)
[2016-04-18 17:05] LABS: Glucose,Whole Blood 131 mg/dL (75-99)
--- NOTE | 2016-04-18 17:09 | P.PN ---
Subjective Principal diagnosis: Coronary artery disease, triple vessel, severe left ventricular dysfunction This 76-year-old male patient , post 3 vessel bypass surgery including PHAM to LAD saphenous vein graft to diagonal and ramus branches and aortic valve replacement was currently back in the intensive care unit and the patient is postop day 0. The patient is currently on mechanical ventilator on assist controlled mode at a rate of 18, tidal volume of 600, FiO2 of 100% and PEEP of 10. Chest x-ray shows increased pulmonary vascular markings bilaterally, a decubitus in a good location, the rest of the chest tubes and the Clinton-Candace catheter was also in good location. Cardiac and axis II.7. The patient was placed on a combination of pressors and currently is on norepinephrine infusion at 60 mics per minute Primacor at 0.5 g per per minute, vasopressin at 0.08 units per minute and Gal-Synephrine drip at 20 mics. Most recent BP is 106/58. PA pressures are 33/27. The patient has medicinal chest tubes and 2 thoracic chest tubes right-sided and left-sided and output is being monitored. The blood gas showed a pH of 7.35 with a pCO2 of 42 and pO2 of 67. The patient is sedated with Diprivan. Objective - Vital Signs Vital signs: Vital Signs Temp 97.3 F L 04/18/16 05:36 Pulse 82 04/18/16 06:30 Resp 18 04/18/16 06:30 BP 124/72 04/18/16 06:30 Pulse Ox 94 L 04/18/16 06:30 Intake & Output 04/17/16 04/18/16 04/18/16 18:59 06:59 18:59 Intake Total 240 820 541 Output Total 9990 958 0211 Balance -1060 130 -2609 Weight 125 kg 119.8 kg Intake: IV 240 380 541 0.9 240 180 Dextrose 5% in Water 1, 100 000 ml @ Per Protocol IV .Q0M ADAM with Potassium Chloride 25 meq with Sodium Chloride 4Meq/ml Vial 27 meq with Magnesium Sulfate 16 meq with Sodium Bicarb (1 Meq /ml) 40 ml with Lidocaine 1% (Pf) 100 mg Rx#: [id number] Magnesium Sulfate-D5w Pmx 100 1 gm In Dextrose/Water 1 100ml.bag @ 100 mls/hr IVPB Q1H [facility] Rx#: [id number] Oral 440 Output: Urine 1300 950 650 Estimated Blood Loss 2500 Other: Voiding Method Urinal Urinal # Voids 1 # Bowel Movements 1 - Exam Intervention the mechanical ventilator., Comfortable sedated with Diprivan.Head exam was generally normal. There was no scleral icterus or corneal arcus. Mucous membranes were moist. Neck is supple there is a right Clinton-Candace catheter in place. No goiter or neck masses. Lungs are diminished bilaterally otherwise there is some few scattered expiratory wheezes. Heart sounds are regular, positive S1-S2 along with that there is a cardiac rub. Chest tubes are all in good location.Abdominal exam revealed normal bowel sounds. The abdomen was soft, non-tender, and without masses, organomegaly, or appreciable enlargement of the abdominal aorta. Extremities showed diminished pulses and there is no cyanosis or clubbing at this point. Neurologically the patient is sedated. - Labs CBC & Chem 7: 04/18/16 03:05 04/18/16 03:05 Labs: Abnormal Lab Results - Last 24 Hours (Table) 04/16/16 04/18/16 04/18/16 Range/Units 04:58 03:05 08:54 ABG pO2 (83-108) mmHg ABG O2 Saturation (94-97) % Carbon Dioxide 31 H (22-30) mmol/L BUN 34 H (9-20) mg/dL Creatinine 1.30 H (0.66-1.25) mg/dL Glucose 115 H (74-99) mg/dL POC Glucose (mg/dL) 115 H (75-99) mg/dL Total Protein 6.1 L (6.3-8.2) g/dL Crossmatch See Detail 04/18/16 04/18/16 04/18/16 Range/Units 10:59 11:33 12:08 ABG pO2 (83-108) mmHg ABG O2 Saturation (94-97) % Carbon Dioxide (22-30) mmol/L BUN (9-20) mg/dL Creatinine (0.66-1.25) mg/dL Glucose (74-99) mg/dL POC Glucose (mg/dL) 152 H 156 H 241 H (75-99) mg/dL Total Protein (6.3-8.2) g/dL Crossmatch 04/18/16 04/18/16 04/18/16 Range/Units 12:49 13:20 13:52 ABG pO2 (83-108) mmHg ABG O2 Saturation (94-97) % Carbon Dioxide (22-30) mmol/L BUN (9-20) mg/dL Creatinine (0.66-1.25) mg/dL Glucose (74-99) mg/dL POC Glucose (mg/dL) 264 H 263 H 269 H (75-99) mg/dL Total Protein (6.3-8.2) g/dL Crossmatch 04/18/16 04/18/16 04/18/16 Range/Units 14:31 15:07 15:36 ABG pO2 (83-108) mmHg ABG O2 Saturation (94-97) % Carbon Dioxide (22-30) mmol/L BUN (9-20) mg/dL Creatinine (0.66-1.25) mg/dL Glucose (74-99) mg/dL POC Glucose (mg/dL) 230 H 189 H 165 H (75-99) mg/dL Total Protein (6.3-8.2) g/dL Crossmatch 04/18/16 Range/Units 16:42 ABG pO2 67 L (83-108) mmHg ABG O2 Saturation 92.0 L (94-97) % Carbon Dioxide (22-30) mmol/L BUN (9-20) mg/dL Creatinine (0.66-1.25) mg/dL Glucose (74-99) mg/dL POC Glucose (mg/dL) (75-99) mg/dL Total Protein (6.3-8.2) g/dL Crossmatch Microbiology - Last 24 Hours (Table) 04/17/16 14:28 Urine Culture - Preliminary Urine,Clean Catch Assessment and Plan Plan: Assessment 1 shortness of breath essentially of a cardiac in nature. 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 CTA of the chest shows changes consistent with CHF with small bilateral pleural effusion and groundglass pulmonary infiltrates consistent with interstitial edema/CHF. On 04/18/2016, the patient is being seen postop. The patient underwent three- vessel bypass surgery and aortic valve replacement. Currently intubated on mechanical ventilator. Patient is on a multitude of pressors including a combination of norepinephrine infusion, vasopressin, Gal-Synephrine and Primacor. Most recent cardiac index at 2.7. Chest tubes are all in place. 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 8 osteoarthritis 9 acute kidney injury, improved 10 obesity Plan Increase the PEEP up to 12 and gradually wean on the FiO2 as tolerated to maintain a saturation above 92%. Add DuoNeb the blood sugars 4 times a day [id number]. Monitored hemodynamics. Keep the chest tubes in place. Keep the patient sedated for now as the patient is not ready for extubation. We 'll keep him sedated for now and the dose of Diprivan will be adjusted accordingly. Monitor the output from the chest tubes. Monitored hemodynamics. We'll continue to follow make further recommendations based on progress.
[2016-04-18] MEDS ORDERED: CISATRACURIUM 2 MG/ML 5 ML VIAL IV ONE ×2 (17:14→17:48)
[2016-04-18 17:24] LABS: Ionized Calcium 4.9 mg/dL (4.5-5.3)
[2016-04-18 17:26] LABS: Glucose,Whole Blood 128 mg/dL (75-99)
--- NOTE | 2016-04-18 17:28 | P.PN ---
Progress Note - Text Procedure performed: Transesophageal echocardiography Indication for the procedure: Coronary artery bypass graft surgery, aortic valve replacement surgery, ischemia monitoring, assessment of valvular function , intracardiac air monitoring, assessment of regional wall motion abnormalities and hemodynamic monitoring. Probe insertion: Under general anesthesia, uneventful. Pre-bypass findings: Left ventricle is moderately dilated and slightly hypertrophied with ejection fraction approximately 20%. There is global hypokinesia with inferior wall mostly not moving. Left atrium moderately dilated. No thrombus seen in the appendage. Right atrium normal in size. A mass like structure seen which is probably thickening of the interatrial septum with sparing of the foramen ovale, though the upper part of the thickened mass is s is little bit free. Right ventricle normal in structure and function. Aortic valve appears to be calcified and stenotic. The valve area by continuity condition is calculated as 0.8 cm. Mean gradient is 28 mm of hg. No AI noted. Mitral valve normal in anatomy with mild to moderate mitral regurgitation seen. Trivial tricuspid and pulmonic regurgitation seen. Descending aorta grade 2 atheroma seen. Post-bypass findings: Prosthetic aortic valve seen no paravalvular regurgitation noted. Mean gradient across the new prosthetic valve is about 7.5 mmHg. Mitral regurgitation seen is decreased to mild in severity. Left ventricular ejection fraction slightly improved to 25-30%. The rest of the exam is same as pre-bypass.
[2016-04-18 17:29] LABS: Basophils % (A) 0 %; CH 30.7; CHCM 33.7; Eosinophils % (A) 0 %; HCT 21.9 % (39.0-53.0); HDW 2.69; Luc # (Auto) 0.11; Luc % (Auto) 1; Lymphocytes # (A) 1.2 k/uL (1.0-4.8); Lymphocytes % (A) 9 %; MCH 30.9 pg (25.0-35.0); MCHC 33.7 g/dL (31.0-37.0); MCV 91.6 fL (80.0-100.0); Mean Platelet Volume 7.3; Monocytes # (A) 0.9 k/uL (0-1.0); Monocytes % (A) 7 %; Neutrophils # (A) 11.2 k/uL (1.3-7.7); Neutrophils % (A) 83 %; RBC 2.39 m/uL (4.30-5.90); RDW 13.5 % (11.5-15.5); WBC 13.4 k/uL (3.8-10.6); WBC (Perox) 14.21
[2016-04-18 17:31] LABS: ALT 35 U/L (21-72); AST 44 U/L (17-59); Alkaline Phosphatase 21 U/L (38-126); Anion Gap 9 mmol/L; Blood Urea Nitrogen 23 mg/dL (9-20); Calcium 7.8 mg/dL (8.4-10.2); Carbon Dioxide 26 mmol/L (22-30); Chloride 106 mmol/L (98-107); Glucose 116 mg/dL (74-99); HGB 7.4 gm/dL (13.0-17.5); Magnesium 2.5 mg/dL (1.6-2.3); Non-African American GFR(MDRD) >60 (>60 ml/min/1.73 sqM); Potassium 4.6 mmol/L (3.5-5.1); Sodium 141 mmol/L (137-145)
[2016-04-18 17:40] LABS: INR 1.6 (<1.1); Partial Thromboplastin Time 38.9 sec (22.0-30.0); Prothrombin Time 15.5 sec (9.0-12.0)
[2016-04-18] MEDS ORDERED: PROTAMINE SULFATE 10 MG/ML 5 ML VIAL IV STA (17:48)
[2016-04-18] MEDS: NITROGLYCERIN-D5W PMX 50 MG in DEXTROSE/WATER 1 250ML.BAG IV SCH (17:53)
[2016-04-18] MEDS: LACTATED RINGERS 1,000 ML IV SCH (17:54)
[2016-04-18 18:16] LABS: ABG Base Excess -2.2 mmol/L; ABG HCO3 23 mmol/L (21-25); ABG PCO2 41 mmHg (35-45); ABG PH 7.36 (7.35-7.45); ABG PO2 93 mmHg (83-108); ABG TCO2 24 mmol/L (19-24)
[2016-04-18 18:17] LABS: ABG Oxygen Saturation 96.9 % (94-97)
[2016-04-18 18:28] LABS: Glucose,Whole Blood 137 mg/dL (75-99)
[2016-04-18 18:52] LABS: Glucose,Whole Blood 154 mg/dL (75-99)
[2016-04-18] MEDS ORDERED: CALCIUM GLUCONATE 1,000 MG in SODIUM CHLORIDE 0.9% 100 ML IVPB ONE (19:12)
[2016-04-18] MEDS ORDERED: SODIUM CHLORIDE 0.9% 50 ML with ceFAZolin 1,000 MG IV ONE ×2 (19:50)
[2016-04-18] MEDS ORDERED: ALBUMIN HUMAN 5% 250 ML in EMPTY BAG 1 BAG IVPB STA (20:01)
[2016-04-18] MEDS ORDERED: ALBUMIN HUMAN 5% 250 ML in EMPTY BAG 1 BAG IVPB ONE (20:15)
[2016-04-18 20:19] LABS: Glucose,Whole Blood 136 mg/dL (75-99)
[2016-04-18] MEDS: CYANOCOBALAMIN 500 MCG TAB PO SCH (20:26)
[2016-04-18] MEDS: MULTIVITAMINS, THERA 1 EACH TAB PO SCH (20:26)
[2016-04-18] MEDS: CHOLECALCIFEROL 1,000 UNIT TAB PO SCH (20:26)
[2016-04-18] MEDS: SODIUM CHLORIDE 0.9% 1,000 ML IV SCH (20:27)
[2016-04-18] MEDS: ACETAMINOPHEN IV (For NPO) 1,000 MG in EMPTY BAG 1 BAG IVPB SCH (20:33)
[2016-04-18] MEDS: NOREPINEPHRINE 16 MG in SODIUM CHLORIDE 0.9% 250 ML IV SCH (21:58)
[2016-04-18 22:04] LABS: Glucose,Whole Blood 138 mg/dL (75-99)
[2016-04-18 22:05] LABS: Basophils % (A) 0 %; CH 30.8; CHCM 34.5; Eosinophils % (A) 0 %; HCT 21.7 % (39.0-53.0); HDW 2.87; HGB 7.3 gm/dL (13.0-17.5); Luc # (Auto) 0.11; Luc % (Auto) 1; Lymphocytes # (A) 0.5 k/uL (1.0-4.8); Lymphocytes % (A) 5 %; MCH 30.2 pg (25.0-35.0); MCHC 33.7 g/dL (31.0-37.0); MCV 89.6 fL (80.0-100.0); Mean Platelet Volume 8.9; Monocytes # (A) 0.7 k/uL (0-1.0); Monocytes % (A) 8 %; Neutrophils # (A) 7.7 k/uL (1.3-7.7); Neutrophils % (A) 85 %; RBC 2.42 m/uL (4.30-5.90); RDW 14.5 % (11.5-15.5); WBC 9.1 k/uL (3.8-10.6); WBC (Perox) 9.39
[2016-04-18 22:11] LABS: ABG PCO2 32 mmHg (35-45); ABG PH 7.41 (7.35-7.45); ABG PO2 71 mmHg (83-108)
[2016-04-18 22:12] LABS: ABG Base Excess -3.7 mmol/L; ABG HCO3 20 mmol/L (21-25); ABG Oxygen Saturation 94.4 % (94-97); ABG TCO2 21 mmol/L (19-24)
--- NOTE | 2016-04-18 22:13 | XR ---
EXAMINATION TYPE: XR chest 1V portable DATE OF EXAM: 04/18/2016 10:00 PM COMPARISON: April 18, 2016 4:29 PM hours HISTORY: Tube placement, postsurgical. TECHNIQUE: Single frontal view of the chest is obtained. FINDINGS: Right-sided Grandin-Candace catheter is suggested in place with its tip probably in the right ventricle and is not well visualized. ET tube is noted in place with its tip 2 cm above the shanice. NG tube is noted in place with its tip coursing towards stomach. Bilateral chest tubes are noted in place with sternotomy changes with sternal sutures in place. There is evidence of a moderate cardiomegaly. There is mild right-sided pleural effusion. The right apical opacities probably related to pleural ef fusion or infiltrate. Mild left-sided pleural effusion is noted. Mild bibasilar lung atelectasis is suggested. The osseous structures are intact. IMPRESSION: 1. ET tube and NG tube are noted in place. Probable Grandin-Candace catheter is noted in place on the right side. 2. Mild bilateral pleural effusions and bibasilar lung infiltrates and atelectasis. 3. Mild opacity in the right upper lobe of lung could be related to focal loculated pleural effusion or infiltrate. 4. Bilateral chest tubes in place with postsurgical changes of sternotomy.. 2.
[2016-04-18 22:26] LABS: Ionized Calcium 4.8 mg/dL (4.5-5.3)
[2016-04-18 22:28] LABS: Manual Review Performed
[2016-04-18 22:33] LABS: ALT 41 U/L (21-72); AST 46 U/L (17-59); Alkaline Phosphatase 33 U/L (38-126); Anion Gap 11 mmol/L; Blood Urea Nitrogen 23 mg/dL (9-20); Carbon Dioxide 25 mmol/L (22-30); Chloride 107 mmol/L (98-107); Glucose 126 mg/dL (74-99); Magnesium 2.2 mg/dL (1.6-2.3); Non-African American GFR(MDRD) >60 (>60 ml/min/1.73 sqM); Potassium 4.3 mmol/L (3.5-5.1); Sodium 143 mmol/L (137-145); Total Protein 4.7 g/dL (6.3-8.2)
[2016-04-18] MEDS ORDERED: HEPARIN SODIUM,PORCINE 5,000 UNIT/ML 1 ML VIAL SQ SCH (22:58)
[2016-04-18 23:09] LABS: Glucose,Whole Blood 155 mg/dL (75-99)
[2016-04-18 23:16] LABS: INR 1.3 (<1.1); Prothrombin Time 12.8 sec (9.0-12.0)
[2016-04-19] MEDS: ACETAMINOPHEN IV (For NPO) 1,000 MG in EMPTY BAG 1 BAG IVPB SCH ×4 (00:10→18:04)
[2016-04-19] MEDS: MILRINONE-D5W PMX 20 MG in DEXTROSE/WATER 1 100ML.BAG IV SCH ×4 (00:12→20:50)
[2016-04-19] MEDS: PROPOFOL 500 MG in EMPTY BAG 1 BAG IV SCH ×6 (00:13→21:13)
[2016-04-19] MEDS: ACETYLCYSTEINE 800 MG/4 ML VIAL INHALATION SCH ×6 (00:14→19:01)
[2016-04-19 00:25] LABS: Glucose,Whole Blood 170 mg/dL (75-99)
[2016-04-19 01:15] LABS: Glucose,Whole Blood 173 mg/dL (75-99)
[2016-04-19] MEDS ORDERED: ceFAZolin 3 GM in SODIUM CHLORIDE 0.9% 100 ML IVPB ONE (03:00)
[2016-04-19] MEDS: IPRATROPIUM-ALBUTEROL 3 ML NEB INHALATION SCH ×9 (03:01→23:32)
[2016-04-19] MEDS: ceFAZolin 3 GM in SODIUM CHLORIDE 0.9% 100 ML IVPB SCH ×2 (03:16→10:16)
[2016-04-19 04:58] LABS: ABG Base Excess -0.4 mmol/L; ABG HCO3 23 mmol/L (21-25); ABG PCO2 31 mmHg (35-45); ABG PH 7.47 (7.35-7.45); ABG PO2 137 mmHg (83-108); ABG TCO2 24 mmol/L (19-24)
[2016-04-19 05:32] LABS: Basophils % (A) 0 %; CHCM 35.1; Eosinophils % (A) 0 %; HCT 21.1 % (39.0-53.0); HGB 7.3 gm/dL (13.0-17.5); Luc # (Auto) 0.11; Luc % (Auto) 1; Lymphocytes # (A) 1.1 k/uL (1.0-4.8); Lymphocytes % (A) 13 %; MCHC 34.8 g/dL (31.0-37.0); MCV 88.9 fL (80.0-100.0); Mean Platelet Volume 9.3; Monocytes # (A) 0.8 k/uL (0-1.0); Monocytes % (A) 9 %; Neutrophils # (A) 6.2 k/uL (1.3-7.7); Neutrophils % (A) 76 %; RBC 2.37 m/uL (4.30-5.90); RDW 14.8 % (11.5-15.5); WBC 8.2 k/uL (3.8-10.6); WBC (Perox) 8.19
[2016-04-19 05:37] LABS: Ionized Calcium 4.8 mg/dL (4.5-5.3)
[2016-04-19 05:45] LABS: ALT 44 U/L (21-72); AST 59 U/L (17-59); Alkaline Phosphatase 34 U/L (38-126); Anion Gap 8 mmol/L; Blood Urea Nitrogen 24 mg/dL (9-20); Carbon Dioxide 27 mmol/L (22-30); Chloride 108 mmol/L (98-107); Glucose 145 mg/dL (74-99); Magnesium 2.2 mg/dL (1.6-2.3); Non-African American GFR(MDRD) >60 (>60 ml/min/1.73 sqM); Potassium 4.6 mmol/L (3.5-5.1); Sodium 143 mmol/L (137-145); Total Bilirubin 1.2 mg/dL (0.2-1.3); Total Protein 4.7 g/dL (6.3-8.2)
--- NOTE | 2016-04-19 07:42 | XR ---
EXAMINATION TYPE: XR chest 1V portable DATE OF EXAM: 04/19/2016 6:33 AM HISTORY: Post Op CABG COMPARISON: NONE TECHNIQUE: Single view of the chest is submitted. FINDINGS: Endotracheal tube, NG tube, SG catheter, mediastinal drains and chest tubes are appropriately placed. Post operative changes of CABG. No sizeable pneumothorax. Scattered Pleural-parencymal opacities may reflect atelectasis. Improved aeration right lung apex. The heart is not enlarged. IMPRESSION: 1. Post operative changes of CABG.
[2016-04-19] MEDS: PANTOPRAZOLE 40 MG/10 ML VIAL IVP SCH (08:21)
[2016-04-19] MEDS: ATORVASTATIN 40 MG TAB PO SCH (08:21)
[2016-04-19] MEDS: METOPROLOL TARTRATE 12.5 MG TAB PO SCH ×2 (08:49→19:14)
[2016-04-19] MEDS ORDERED: CLOPIDOGREL 75 MG TAB PO SCH (09:00)
[2016-04-19] MEDS ORDERED: ASPIRIN 325 MG TAB PO SCH (09:00)
--- NOTE | 2016-04-19 09:03 | PN ---
DATE OF SERVICE: 04/18/2016 This 76-year-old gentleman who was admitted after congestive heart failure acute exacerbation and myocardial infarction, is slated to have coronary artery bypass grafting and aortic valve replacement today. No chest pain, no palpitations. No fever. On exam, alert and oriented x3. Pulse is 87, blood pressure 130/70, respirations 22, temperature 98.4, pulse ox 97% on room air. HEENT: Conjunctivae normal. NECK: No jugular venous distention. CARDIOVASCULAR: S1 and S2, muffled. RESPIRATORY: Breath sounds diminished at the bases. A few scattered rhonchi and crackles. ABDOMEN: Soft, nontender. LEGS: No edema, no swelling. NERVOUS SYSTEM: No focal deficits. LABS: Hemoglobin 7.3. Other labs are noted. ASSESSMENT: 1. Shortness of breath with possible congestive heart failure, acute exacerbation, with acute on chronic systolic dysfunction, ejection fraction 20 to 25% with possible ischemic cardiomyopathy present on admission. 2. Status post cardiac catheterization, triple vessel coronary artery disease and coronary artery disease, coronary artery bypass grafting, acute non-ST elevation myocardial infarction with troponin of 5.170 present on admission. 3. Moderate aortic valve stenosis with maximum gradient 43 and mean of 27. 4. Acute renal failure, possible prerenal, improving. 5. Possible chronic kidney disease, stage III. 6. Increased BNP. 7. Increased total bilirubin. 8. Increased AST. 9. Increased random blood sugar. 10. Obesity, body mass index of 35.9. 11. Increased d-dimer with no evidence of pulmonary embolism. 12. Increased WBC, possibly reactive. 13. Hypertension. 14. Degenerative joint disease. 15. History of back pain. 16. History of left knee replacement. 17. Remote history of nicotine dependence. 18. FULL CODE. RECOMMENDATIONS AND DISCUSSION: I recommend to continue the current medications, continue monitoring and symptomatic treatment. Continue with diuretic. Continue with the rest of the medications. Possible CABG with aortic valve replacement per Cardiothoracic Surgery. Further recommendations to follow. Prognosis guarded.
--- NOTE | 2016-04-19 10:34 | OP ---
DATE OF SERVICE: SURGEON: James Toledo MD LEGISLATIVE AIDE: Bassam Quinones PA-C and WICHO Benitez. PREOPERATIVE DIAGNOSES: 1. 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 2. Severe aortic valve stenosis. 3. Severe left ventricular dysfunction. 4. Moderate mitral valve regurgitation. 5. Mild tricuspid valve regurgitation. 6. Hyperlipidemia. 7. Obesity. 8. Congestive heart failure. POSTOPERATIVE DIAGNOSES: 1. 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 2. Severe aortic valve stenosis. 3. Severe left ventricular dysfunction. 4. Moderate mitral valve regurgitation. 5. Mild tricuspid valve regurgitation. 6. Hyperlipidemia. 7. Obesity. 8. Congestive heart failure. OPERATION: 1. Triple-vessel coronary artery bypass grafting using the left internal mammary artery to the left anterior descending artery, reverse saphenous vein graft from the aorta to the early rising posterior descending artery, reverse saphenous vein graft from the aorta to the intramyocardial ramus intermedius artery proximally. 2. Aortic valve replacement using a 25-mm pericardial bioprosthesis, Magna Ease. 3. Endoscopic harvesting of the right greater saphenous vein. 4. Intraoperative transesophageal echocardiogram and epiaortic scanning. ANESTHESIA: ESTIMATED BLOOD LOSS: SPECIMENS REMOVED: COMPLICATIONS: OPERATIVE FINDINGS: INDICATIONS FOR PROCEDURE: Patient is a 76-year-old gentleman who presented with essentially a picture of congestive heart failure. His proBNP was above 8000. He had a mild elevation of his troponin. Cardiac catheterization showed an occluded collateralized right coronary artery, left main disease. Two-D echo, then KAYCEE showed severe left ventricular dysfunction, moderate mitral valve regurgitation, severe aortic valve stenosis and mild tricuspid valve regurgitation. 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 Patient was optimized over around 3 days and his kidney function had reverted to normal before we proceeded to the operating room. He is at a high risk and this was explained to him and his . They understood and agreed to proceed. DESCRIPTION OF PROCEDURE: Patient had a right brachial arterial line and a right internal jugular [place] catheter inserted in the preoperative holding area. He was brought to the operating room, where general endotracheal anesthesia was induced uneventfully. His PA pressure was 60/40 and his cardiac index was 2.3 before intubation. Nava catheter was inserted. The chest, abdomen and both lower extremities were prepped and draped using ChloraPrep. Ioban was used to cover the skin. Patient was given 2 g of cefazolin intravenously. Transesophageal echocardiogram confirmed the preoperative finding of severe aortic valve stenosis, moderate central mitral valve regurgitation and severe left ventricular dysfunction with akinetic inferior wall. There was the above-mentioned lipomatous hypertrophy of the intra -atrial septum. Midline sternotomy was performed and no bone wax was used. The left hemisternum was elevated and the left internal mammary artery was harvested in a semi- skeletonized fashion. The left pleura was intentionally opened in this process and was drained with 28-Stateless chest tube. I also made an opening in the right pleura and drained it with another 28-Stateless chest tube. In the same setting, the right greater saphenous vein was harvested endoscopically from groin to below-knee level. The branches were tied. The leg incisions were closed over a drain. Mediastinal fat was transected between 2 ties and epiaortic scanning revealed intimal thickening, but no protruding atheroma in the ascending aorta. Pericardium was opened in an inverted T fashion and pericardial cradle was created. Findings included a very fatty heart, short aorta, diffuse calcific coronary artery disease. After systemic heparinization and after placement of respective pledgeted pursestrings, aortic cannulation with a 21-Stateless soft-flow cannula, venous cannulation with a dual-stage 29/37 venous cannula via the right atrial appendage was done. Antegrade as well as retrograde cardioplegia catheters were placed. The mammary artery was double clipped distally and transected, had an excellent pulsatile flow in it and was around 1.5 mm in diameter and thin-walled. The vein was prepared and appeared to be a bit thickened with around 4 mm in diameter. We placed a right femoral arterial line for a potential intra-aortic balloon pump need a t the end of the case. We initiated bypass and remained warm initially as we looked at the targets. The LAD was found in its mid to distal aspect and it had a calcific posterior plaque diffusely. The ramus intermedius was totally intramyocardial and it was found just at its takeoff from groove deep in the fat. The inferior wall showed an early rising posterior descending artery, as the right coronary artery was totally calcified, and that would be the site for bypass. During aortic clamping, myocardial protection was achieved with an initial dose of 1 L of antegrade cold blood cardioplegia followed by 500 mL of retrograde cold blood cardioplegia. Subsequent doses were all given retrograde as well as via the constructed vein graft to the posterior descending artery, which was done first. Core temperature was allowed to drift down to 34C. The first distal anastomosis was again between a segment of vein and the early rising posterior descending artery, which was around 1.5 mm in diameter with a posterior plaque using Prolene 7-0 in continuous fashion. That anastomosis was hemostatic. As mentioned above, that vein was connected to a Y-arm on the retrograde cardioplegia delivery system and maintenance doses were given additionally through this vein graft to achieve better RV protection in view of the totally occluded right coronary artery. The second distal anastomosis was between another segment of vein and the intramyocardial proximal ramus intermedius artery, which was opened, was around 1.7 mm in diameter with a calcific eccentric plaque using Prolene 7-0 in continuous fashion. There was adequate flow and the anastomosis appeared to be hemostatic. The third and last distal anastomosis was between the left internal mammary artery and the mid aspect of the left anterior descending artery, which was opened, had a posterior plaque, using Prolene 7-0 in continuous fashion. Attention was moved at this point at performing the aortic valve replacement part. The aorta was opened in a transverse fashion around 1 cm above the takeoff of the right coronary artery. The wall was soft. Exposure revealed a calcific tri-leaflet severe aortic valve stenosis. The valve was excised and the annulus debrided very carefully. Thorough irrigation to make sure that all the calcific debris was potentially aspirated was performed. The annulus was sized to a 25-mm valve and a Magna Ease pericardial bioprosthesis was selected and washed on the back table as we placed a total of 18 sutures of Ti-Cron 2-0 pledgeted on the ventricular side circumferentially in the annulus. All those sutures were passed symmetrically into the valve, which seated nicely in a supra-annular position and all the needles were cut and the sutures tied using the Cor-Knot device. The coronary ostiae were clear. Thorough irrigation performed one more time before closing the aorta in 2 layers using Prolene 3-0 pledgeted on each corner with the first layer in a horizontal mattress and the second layer in an over and over technique. Rewarming started at this point as we made 2 buttons of 4 mm each on the aorta above the aortotomy and completed the 2 proximal anastomosis of the 2-vein graft using Prolene 6-0 in continuous fashion. Patient had been loaded with Primacor and we carried basic de-airing maneuver and was given magnesium and lidocaine before unclamping the aorta. He regained spontaneous sinus rhythm. Two monopolar pacing wires were affixed to the right atrium: One at the site of the pursestring of the venous cannulation and the other one at the RA SVC junction. One bipolar ventricular pacing wire was driven via the inferior aspect of the right ventricle. After a period of reperfusion and after performing a KAYCEE that showed no paravalvular leak, we were able to wean off cardiopulmonary bypass with the pharmacological support of Primacor at 0.5 mcg/kg per minute, Levophed and vasopressin for vasopressor support. Cardiac index was around 2.4. De-airing was satisfactory. The LV function showed mild improvement. There was mild mitral valve regurgitation at this point. Two substernal chest tubes were placed and after ensuring adequate hemostasis and hemodynamics, the sternum was approximated using 5 [id number] [place] cable after interposing fibrillar between the sternal edges. Thorough irrigation with cefazolin followed. The rest of the closure proceeded in layers. Skin glue sealant was applied. Patient did not receive any blood bank product, but received 1500 mL of Cell Saver blood. He was transferred to the ICU in stable condition with a cardiac index of 2.4, PA pressure of 40/20, sinus rhythm at 84 on the above-mentioned pharmacological support. [facility]
--- NOTE | 2016-04-19 10:49 | P.PN ---
Addendum entered and electronically signed by Jozef Santos RNFA 04/19/16 10: 52: POD: #1, triple vessel coronary artery bypass grafting using the left internal mammary artery to the left anterior descending coronary artery, a reverse greater saphenous vein graft from the aorta to the early arising posterior descending coronary artery, a reverse greater saphenous vein graft from the aorta to the intramyocardial ramus intermedius artery proximally. 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 Intraoperative transesophageal echocardiogram and Epi-aortic scanning. #1 Reexploration for postoperative bleeding.. Original Note: Progress Note - Text CV Surgery Nursing POD: #1, Patient remains intubated with mechanical ventilator support, he is currently sedated on propofol drip at 25 mcg/kg/m. He is not following any simple commands at this time but does withdraw from noxious stimuli. Vital Signs: Afebrile Vital Signs - 24 hr 04/18/16 04/18/16 04/18/16 16:30 16:38 16:45 Temperature Pulse Rate 96 91 Pulse Rate [ 82 Left Sitting Pulse Oximetery ] Respiratory 18 17 Rate Blood Pressure O2 Sat by Pulse 86 L 86 L 86 L Oximetry 04/18/16 04/18/16 04/18/16 17:00 17:15 17:29 Temperature 96.8 F L Pulse Rate 125 H 92 93 Pulse Rate [ Left Sitting Pulse Oximetery ] Respiratory 24 19 18 Rate Blood Pressure 90/44 O2 Sat by Pulse 87 L 85 L 93 L Oximetry 04/18/16 04/18/16 04/18/16 17:30 17:39 17:41 Temperature 96.8 F L 96.8 F L Pulse Rate 92 92 93 Pulse Rate [ Left Sitting Pulse Oximetery ] Respiratory 18 18 18 Rate Blood Pressure 115/52 111/51 O2 Sat by Pulse 92 L Oximetry 04/18/16 04/18/16 04/18/16 17:45 17:46 17:51 Temperature 96.8 F L 96.8 F L Pulse Rate 91 91 91 Pulse Rate [ Left Sitting Pulse Oximetery ] Respiratory 17 18 18 Rate Blood Pressure 120/53 118/52 O2 Sat by Pulse 94 L Oximetry 04/18/16 04/18/16 04/18/16 17:52 17:59 18:00 Temperature 96.6 F L 96.6 F L Pulse Rate 91 90 91 Pulse Rate [ Left Sitting Pulse Oximetery ] Respiratory 18 18 17 Rate Blood Pressure 127/55 133/57 O2 Sat by Pulse 96 97 Oximetry 04/18/16 04/18/16 04/18/16 18:02 18:03 18:05 Temperature 96.6 F L 96.6 F L 96.6 F L Pulse Rate 90 89 90 Pulse Rate [ Left Sitting Pulse Oximetery ] Respiratory 18 18 18 Rate Blood Pressure 134/57 120/54 131/55 O2 Sat by Pulse Oximetry 04/18/16 04/18/16 04/18/16 18:13 18:15 18:17 Temperature 96.8 F L 96.8 F L Pulse Rate 89 93 89 Pulse Rate [ Left Sitting Pulse Oximetery ] Respiratory 18 17 18 Rate Blood Pressure 110/51 94/44 O2 Sat by Pulse 98 Oximetry 04/18/16 04/18/16 04/18/16 18:30 18:32 18:45 Temperature 96.8 F L Pulse Rate 87 88 86 Pulse Rate [ Left Sitting Pulse Oximetery ] Respiratory 17 18 18 Rate Blood Pressure 113/52 O2 Sat by Pulse 100 99 Oximetry 04/18/16 04/18/16 04/18/16 18:46 18:53 18:57 Temperature 96.8 F L 96.8 F L 96.8 F L Pulse Rate 93 86 89 Pulse Rate [ Left Sitting Pulse Oximetery ] Respiratory 18 18 18 Rate Blood Pressure 105/49 119/55 124/57 O2 Sat by Pulse 98 Oximetry 04/18/16 04/18/16 04/18/16 19:00 19:15 20:00 Temperature Pulse Rate 90 87 Pulse Rate [ Left Sitting Pulse Oximetery ] Respiratory 18 17 18 Rate Blood Pressure O2 Sat by Pulse 98 98 Oximetry 04/18/16 04/18/16 04/18/16 21:45 22:00 22:15 Temperature Pulse Rate 96 89 88 Pulse Rate [ Left Sitting Pulse Oximetery ] Respiratory 18 18 18 Rate Blood Pressure 116/57 99/52 O2 Sat by Pulse 92 L 90 L 95 Oximetry 04/18/16 04/18/16 04/18/16 22:30 22:45 23:00 Temperature Pulse Rate 87 87 87 Pulse Rate [ Left Sitting Pulse Oximetery ] Respiratory 18 19 20 Rate Blood Pressure O2 Sat by Pulse 97 98 99 Oximetry 04/18/16 04/18/16 04/18/16 23:05 23:15 23:18 Temperature Pulse Rate 87 87 88 Pulse Rate [ Left Sitting Pulse Oximetery ] Respiratory 18 Rate Blood Pressure O2 Sat by Pulse 99 Oximetry 04/18/16 04/18/16 04/19/16 23:30 23:45 00:00 Temperature Pulse Rate 89 88 91 Pulse Rate [ Left Sitting Pulse Oximetery ] Respiratory 20 18 18 Rate Blood Pressure O2 Sat by Pulse 98 99 98 Oximetry 04/19/16 04/19/16 04/19/16 00:15 00:30 00:45 Temperature Pulse Rate 90 87 93 Pulse Rate [ Left Sitting Pulse Oximetery ] Respiratory 18 18 18 Rate Blood Pressure O2 Sat by Pulse 98 98 98 Oximetry 04/19/16 04/19/16 04/19/16 01:00 01:15 01:30 Temperature Pulse Rate 89 89 88 Pulse Rate [ Left Sitting Pulse Oximetery ] Respiratory 18 18 19 Rate Blood Pressure 90/47 O2 Sat by Pulse 97 98 98 Oximetry 04/19/16 04/19/16 04/19/16 01:45 02:00 02:15 Temperature Pulse Rate 89 88 88 Pulse Rate [ Left Sitting Pulse Oximetery ] Respiratory 18 18 18 Rate Blood Pressure O2 Sat by Pulse 97 98 100 Oximetry 04/19/16 04/19/16 04/19/16 02:30 02:45 03:00 Temperature Pulse Rate 86 87 86 Pulse Rate [ Left Sitting Pulse Oximetery ] Respiratory 19 18 18 Rate Blood Pressure O2 Sat by Pulse 100 100 100 Oximetry 04/19/16 04/19/16 04/19/16 03:02 03:15 03:18 Temperature Pulse Rate 86 84 88 Pulse Rate [ Left Sitting Pulse Oximetery ] Respiratory 18 Rate Blood Pressure O2 Sat by Pulse 100 Oximetry 04/19/16 04/19/16 04/19/16 03:30 03:45 04:00 Temperature Pulse Rate 93 86 86 Pulse Rate [ Left Sitting Pulse Oximetery ] Respiratory 19 19 18 Rate Blood Pressure O2 Sat by Pulse 100 100 100 Oximetry 04/19/16 04/19/16 04/19/16 04:15 04:30 04:45 Temperature Pulse Rate 86 86 85 Pulse Rate [ Left Sitting Pulse Oximetery ] Respiratory 18 19 18 Rate Blood Pressure 91/50 O2 Sat by Pulse 100 100 100 Oximetry 04/19/16 04/19/16 04/19/16 05:00 05:15 05:30 Temperature Pulse Rate 97 97 100 Pulse Rate [ Left Sitting Pulse Oximetery ] Respiratory 18 21 20 Rate Blood Pressure 91/50 O2 Sat by Pulse 100 98 100 Oximetry 04/19/16 04/19/16 04/19/16 05:45 06:00 06:15 Temperature Pulse Rate 88 88 90 Pulse Rate [ Left Sitting Pulse Oximetery ] Respiratory 21 21 21 Rate Blood Pressure O2 Sat by Pulse 100 100 100 Oximetry 04/19/16 04/19/16 04/19/16 06:30 06:45 07:00 Temperature Pulse Rate 88 89 90 Pulse Rate [ Left Sitting Pulse Oximetery ] Respiratory 18 18 18 Rate Blood Pressure O2 Sat by Pulse 100 100 99 Oximetry 04/19/16 04/19/16 04/19/16 07:15 07:30 08:00 Temperature Pulse Rate 86 87 82 Pulse Rate [ Left Sitting Pulse Oximetery ] Respiratory 20 20 17 Rate Blood Pressure O2 Sat by Pulse 99 100 100 Oximetry 04/19/16 08:30 Temperature Pulse Rate 87 Pulse Rate [ Left Sitting Pulse Oximetery ] Respiratory 19 Rate Blood Pressure O2 Sat by Pulse 100 Oximetry ABP, PAP, CO, CI - Last 8 Hours Arterial Blood Pressure 104/49 Arterial Blood Pressure 89/46 Arterial Blood Pressure 94/44 Arterial Blood Pressure 95/44 Arterial Blood Pressure 103/47 Arterial Blood Pressure 111/48 Arterial Blood Pressure 99/46 Arterial Blood Pressure 116/45 Arterial Blood Pressure 128/43 Arterial Blood Pressure 126/42 Arterial Blood Pressure 120/50 Arterial Blood Pressure 112/48 Arterial Blood Pressure 120/51 Arterial Blood Pressure 120/51 Arterial Blood Pressure 110/49 Arterial Blood Pressure 105/45 Arterial Blood Pressure 106/45 Arterial Blood Pressure 114/51 Arterial Blood Pressure 99/45 Arterial Blood Pressure 108/48 Arterial Blood Pressure 104/47 Arterial Blood Pressure 112/50 Arterial Blood Pressure 91/48 Arterial Blood Pressure 95/48 Arterial Blood Pressure 104/48 Arterial Blood Pressure 111/51 Pulmonary Artery Pressure 28/17 Pulmonary Artery Pressure 33/19 Pulmonary Artery Pressure 28/19 Pulmonary Artery Pressure 29/20 Pulmonary Artery Pressure 27/21 Pulmonary Artery Pressure 31/22 Pulmonary Artery Pressure 32/23 Pulmonary Artery Pressure 30/19 Pulmonary Artery Pressure 29/18 Pulmonary Artery Pressure 33/18 Pulmonary Artery Pressure 30/19 Pulmonary Artery Pressure 33/19 Pulmonary Artery Pressure 32/19 Pulmonary Artery Pressure 31/20 Pulmonary Artery Pressure 30/22 Pulmonary Artery Pressure 30/20 Pulmonary Artery Pressure 30/20 Pulmonary Artery Pressure 30/20 Pulmonary Artery Pressure 31/19 Pulmonary Artery Pressure 31/19 Pulmonary Artery Pressure 30/19 Pulmonary Artery Pressure 30/19 Pulmonary Artery Pressure 30/19 Pulmonary Artery Pressure 30/18 Pulmonary Artery Pressure 29/18 Pulmonary Artery Pressure 28/18 Pulmonary Artery Pressure 28/21 Pulmonary Artery Pressure 33/20 Cardiac Output 5.3 Cardiac Output 6.4 Cardiac Output 6.4 Cardiac Output 6.4 Cardiac Output 6.9 Cardiac Output 6.9 Cardiac Output 6.9 Cardiac Output 6.6 Cardiac Output 6.6 Cardiac Output 6.6 Cardiac Output 6.6 Cardiac Output 6.2 Cardiac Output 6.2 Cardiac Output 6.2 Cardiac Output 6.2 Cardiac Output 6.1 Cardiac Output 6.1 Cardiac Output 6.1 Cardiac Output 6.1 Cardiac Output 5.7 Cardiac Output 5.7 Cardiac Output 5.7 Cardiac Output 5.7 Cardiac Output 6.3 Cardiac Output 6.3 Cardiac Output 6.3 Cardiac Output 6.3 Cardiac Index 2.3 Cardiac Index 2.7 Cardiac Index 2.9 Cardiac Index 2.6 Cardiac Index 2.6 Cardiac Index 2.4 Cardiac Index 2.7 Labs: Short CBC 04/18/16 04/18/16 04/19/16 Range/Units 16:00 22:00 05:25 WBC 13.4 H 9.1 8.2 (3.8-10.6) k/uL Hgb 7.4 L D 7.3 L 7.3 L (13.0-17.5) gm/dL Hct 21.9 L 21.7 L 21.1 L (39.0-53.0) % Plt Count 105 L 78 L 89 L (150-450) k/uL Neutrophils # 11.2 H 7.7 6.2 (1.3-7.7) k/uL BMP 04/18/16 04/18/16 04/19/16 16:00 22:00 05:25 Sodium 141 143 143 Potassium 4.6 4.3 4.6 Chloride 106 107 108 H Carbon Dioxide 26 25 27 BUN 23 H 23 H 24 H Creatinine 0.95 0.97 1.11 Glucose 116 H 126 H 145 H Calcium 7.8 L 8.0 L 8.0 L Liver Function 04/18/16 04/18/16 04/19/16 Range/Units 16:00 22:00 05:25 Total Bilirubin 1.0 2.0 H 1.2 (0.2-1.3) mg/dL AST 44 46 59 (17-59) U/L ALT 35 41 44 (21-72) U/L Alkaline Phosphatase 21 L 33 L 34 L (38-126) U/L Albumin 2.5 L 3.1 L 3.0 L (3.5-5.0) g/dL ABG ABG pH 7.47 (7.35-7.45) H 04/19/16 04:32 ABG pCO2 31 mmHg (35-45) L 04/19/16 04:32 ABG pO2 137 mmHg (83-108) H 04/19/16 04:32 ABG O2 Saturation 99.0 % (94-97) H 04/19/16 04:32 PT/INR, D-dimer PT 12.8 sec (9.0-12.0) H 04/18/16 22:00 INR 1.3 (<1.1) 04/18/16 22:00 D-Dimer 0.73 mg/L FEU (<0.60) H 04/13/16 10:43 Microbiology 04/17/16 14:28 Urine,Clean Catch Urine Culture - Final 04/15/16 18:00 Nasal Swab Nasal Culture - Final IV Fluids: Lactated Ringer's at 50 mL per hour Primacor at 0.5 mcg/kg/m Norepinephrine drip at 6 mcg/m Regular insulin drip at 5 units per hour Propofol drip at 25 mcg/kg/m Cardiac output: 6.4 Cardiac index: 2.7 Pulmonary artery pressures: 32/18 CVP: 12 Lungs: Essentially clear throughout, diminished bilateral bases. Respirations are unlabored with mechanical ventilator support. Current ventilator settings are as follows: AC 18, TV 650, FiO2 100%, PEEP 12. O2 sat: 99% with mechanical ventilator support and FiO2 100%. Heart: S1S2, irregular rhythm with regular rate, negative for murmur, S3 or gallop. Bedside telemetry showing normal sinus rhythm with frequent PACs heart rate 85. Sternum stable, chest incision clean with silverlon dressing clean and dry. Heart hugger in place. Right leg incisions clean dry and intact, well approximated. No drainage noted. DOTTIE drain in place to right lower leg, 90 mL output since surgery. Right groin A-line in place with good waveform, insertion sites soft to touch. Knee-high KARON hose and sequential compression devices in place to bilateral lower extremities. Abdomen: Soft, Positive hypoactive bowel sounds present in all 4 quadrants. CBGs: 154-173 mg/dL in the last 24 hours. U/O: Adequate, Nava catheter for accurate I&O. 460 mL output in the last 8 hours. Chest Tubes: Left pleural chest tube without air leak, remains to continuous wall suction -20 cm water, 40 mL output in the last 8 hours, 210 mL output since surgery. Right pleural chest tube without air leak, remains to continuous wall suction -20 cm water, 60 mL output last 8 hours, 370 mL output since surgery. Mediastinal chest tubes with positive air leak, remains to continuous wall suction at -20 cm water, 190 mL output in the last 8 hours, 1940 mL output since surgery. 24 hr Total: Intake & Output 04/17/16 04/18/16 04/19/16 04/20/16 06:59 06:59 06:59 06:59 Intake Total 1049 1060 6393.628 342.019 Output Total 2150 2250 7115 280 Balance -1101 -1190 -721.372 62.019 Weight 125 kg 119.8 kg 125.8 kg Active Medications Generic Name Dose Route Start Last Admin Trade Name Freq PRN Reason Stop Dose Admin Acetaminophen/Hydrocodone Bitart 2 each 04/19/16 14:56 [place] 5-325 PO Q4HR PRN Severe Pain Acetaminophen/Hydrocodone Bitart 1 each 04/19/16 14:56 [place] 5-325 PO Q4HR PRN Moderate Pain Acetylcysteine 200 mg 04/19/16 00:00 04/19/16 08:31 Mucomyst INHALATION Not Given RT-QID ADAM Albuterol/Ipratropium 3 ml 04/18/16 16:00 04/19/16 08:31 Duoneb 0.5 Mg-3 Mg/3 Ml Soln INHALATION 3 ml RT-Q4H ADAM Administration Albuterol/Ipratropium 3 ml 04/19/16 14:59 Duoneb 0.5 Mg-3 Mg/3 Ml Soln INHALATION RT-Q2H PRN Shortness Of Breath Or Wheezing Albuterol/Ipratropium 3 ml 04/19/16 16:00 Duoneb 0.5 Mg-3 Mg/3 Ml Soln INHALATION RT-QID ADAM Aspirin 325 mg 04/19/16 09:00 04/19/16 08:20 Aspirin PO 325 mg DAILY ADAM Administration Atorvastatin Calcium 40 mg 04/19/16 09:00 04/19/16 08:21 Lipitor PO 40 mg DAILY ADAM Administration Benzocaine/Menthol 1 each 04/18/16 14:58 Cepacol Lozenge MUCOUS MEM Q2H PRN Sore Throat Bisacodyl 10 mg 04/19/16 14:58 Dulcolax RECTAL DAILY PRN Constipation Insulin Human Regular 100 unit 101 mls @ 0 mls/hr 04/18/16 14:30 04/19/16 09: 07 / Sodium Chloride IV 4.5 units/hr .Q0M ADAM 4.54 mls/hr Protocol Titration Per Protocol Acetaminophen 1,000 mg/ IV 100 mls @ 400 mls/hr 04/18/16 18:00 04/19/16 05:57 Solution IVPB 04/19/16 18:01 400 mls/hr Q6HR ADAM Administration Albumin Human 250 ml/ IV 250 mls @ 250 mls/hr 04/18/16 14:51 Solution IVPB 04/20/16 14:52 Q1HR PRN For Volume Clevidipine 25 mg/ IV Solution 50 mls @ 2 mls/hr 04/18/16 14:45 04/18/16 15: 52 IV Not Given .Q24H ADAM Protocol 1 MG/HR Lactated Ringer's 1,000 mls @ 50 mls/hr 04/18/16 15:00 04/18/16 17:54 Lactated Ringers IV 50 mls/hr .Q20H ADAM Administration Milrinone Lactate/Dextrose 20 100 mls @ 0 mls/hr 04/18/16 15:00 04/19/16 08: 19 mg/ IV Solution IV 0.4 mcg/kg/min .Q0M ADAM 14.37 mls/hr Protocol Titration Per Protocol Nitroglycerin/Dextrose 50 mg/ 250 mls @ 1.5 mls/hr 04/18/16 15:00 04/18/16 17 :53 IV Solution IV Not Given .Q24H ADAM 5 MCG/MIN Norepinephrine Bitartrate 16 266 mls @ 0 mls/hr 04/18/16 14:45 04/19/16 07:07 mg/ Sodium Chloride IV 6 mcg/min .Q0M ADAM 5.98 mls/hr Protocol Titration Titrate Propofol 500 mg/ IV Solution 50 mls @ 0 mls/hr 04/18/16 15:00 04/19/16 09:10 IV 20 mcg/kg/min .Q0M ADAM 14.37 mls/hr Protocol Titration Titrate Vasopressin 20 unit/ Sodium 100 mls @ 9 mls/hr 04/18/16 14:45 04/18/16 23:50 Chloride IV 0 units/min .Q11H7M ADAM 0 mls/hr Protocol Titration 0.03 UNITS/MIN Cefazolin Sodium 3 gm/ Sodium 100 mls @ 100 mls/hr 04/19/16 03:00 04/19/16 03 :16 Chloride IVPB 04/19/16 11:59 100 mls/hr Q8H ADAM Administration Magnesium Hydroxide 2,400 mg 04/19/16 14:58 Milk Of Magnesia PO BID PRN Constipation Metoprolol Tartrate 12.5 mg 04/19/16 09:00 04/19/16 08:49 Lopressor PO 12.5 mg BID ADAM Administration Miscellaneous Information 1 each 04/18/16 14:58 Magnesium Per Protocol MISCELLANE DAILY PRN Per Protocol Protocol Miscellaneous Information 1 each 04/18/16 14:58 Phosphorus Per Protocol MISCELLANE DAILY PRN Per Protocol Protocol Miscellaneous Information 1 each 04/18/16 14:58 Potassium Per Protocol MISCELLANE DAILY PRN Per Protocol Protocol Morphine Sulfate 2 mg 04/18/16 14:51 Morphine Sulfate (Inj) IVP Q2H PRN Severe Pain Ondansetron HCl 4 mg 04/18/16 14:58 Zofran IVP Q6HR PRN Nausea And Vomiting Oxycodone HCl 10 mg 04/18/16 14:51 Oxyir PO 04/19/16 14:52 Q4H PRN Severe Pain Oxycodone HCl 5 mg 04/18/16 14:51 Oxyir PO 04/19/16 14:52 Q4H PRN Moderate Pain Pantoprazole Sodium 40 mg 04/19/16 09:00 04/19/16 08:21 Protonix IVP 40 mg DAILY ADAM Administration Senna/Docusate Sodium 2 each 04/19/16 21:00 Senokot-S PO HS ADAM Sodium Chloride 10 ml 04/18/16 21:00 04/19/16 08:21 Saline Flush IV 10 ml BID ADAM Administration Plan: Per Dr. Toledo, we will decrease his FiO2 to 80%. Pulmonary and ventilator management per Dr. Sales. Continue metoprolol 12.5 mg by mouth twice a day as ordered. His aspirin will be changed to 81 mg by mouth daily, he will be started on heparin subcu 5000 units every 8 hours and Plavix 75 mg by mouth daily for DVT prophylaxis. We will hold off on diuresis today. His Primacor will be decreased to 0.35 mcg/kg/m. We will restart his Proscar 5 mg by mouth daily as per his home dose.
[2016-04-19 11:19] LABS: ABG Base Excess -0.1 mmol/L; ABG HCO3 23 mmol/L (21-25); ABG PCO2 31 mmHg (35-45); ABG PH 7.48 (7.35-7.45); ABG PO2 82 mmHg (83-108); ABG TCO2 24 mmol/L (19-24)
[2016-04-19] MEDS: LACTATED RINGERS 1,000 ML IV SCH (11:33)
--- NOTE | 2016-04-19 11:37 | OP ---
DATE OF SERVICE: 04/18/2016 SURGEON: James Toledo MD ACID OPERATOR: WICHO Cui PREOPERATIVE DIAGNOSES: 1. Status post aortic valve replacement. 2. Triple vessel coronary artery bypass grafting. 3. Postoperative bleeding. POSTOPERATIVE DIAGNOSES: 1. Status post aortic valve replacement. 2. Triple vessel coronary artery bypass grafting. 3. Postoperative bleeding with bleeding from ventricular pacing wire site in the right ventricle. OPERATION: Resternotomy and control of the bleeding and evacuation of clots. ANESTHESIA: ESTIMATED BLOOD LOSS: SPECIMENS REMOVED: COMPLICATIONS: OPERATIVE FINDINGS: INDICATION FOR SURGERY: Patient is a 76-year-old gentleman who underwent earlier today aortic valve replacement and triple vessel coronary artery bypass grafting. Patient initially had a modest chest tube output then eventually the mediastinal chest tube output increased. Blood work showed some coagulopathy. Platelets and FFP were administered and despite correction of coagulopathy, there was a constant moderate to high amount of chest tube output from the mediastinum. With that decision was made to re-explore the patient. Risks, benefits, and alternatives were discussed with the patient's , who understood them and gave the okay to proceed. DESCRIPTION OF THE PROCEDURE: Patient was brought to the operating room, had been stable hemodynamically on the support that he required coming off bypass from the initial surgery. The patient had received 2 grams of cefazolin around one hour ago; however, he was redosed with another 1 gram. The chest was prepped and draped using Betadine and Ioban for the skin. The previous incision was reopened and all suture material removed. All cables were cut and all removed. Retractor was spread and there did not appear to be any clots around the heart. However, there was constant bright red blood coming by the inferior aspect of the right ventricle. The distal anastomosis of the vein graft to the posterior descending artery was intact. However, we had placed a bipolar pacing wire in the inferior aspect of the right ventricle and the exit site of that wire from the ventricle had an obvious arteriolar bleeding, which was controlled after removing the pacing wire with a pledgeted 6-0 Prolene. Another bipolar pacing wire was driven via the anterior aspect of the right ventricle and for extra measures, I placed a Prolene 6-0 pursestring at the entry and exit of that wire, which was brought out through the skin and affixed. Thorough irrigation performed. There was no other obvious source of bleeding and the mediastinum was pretty dry. With that the sternum was closed back using 5 [id number] [place] cable after interposing fibrillar between the sternal edges. Thorough irrigation performed before closing the incision in layers. Skin dressing was applied. Patient tolerated procedure well and was transferred to of the ICU in stable condition. JAMES
[2016-04-19] MEDS: INSULIN REGULAR 100 UNIT in SODIUM CHLORIDE 0.9% 100 ML IV SCH (12:19)
--- NOTE | 2016-04-19 12:59 | PN ---
Mr. Mccracken is status post aortic valve replacement and three-vessel bypass, had some bleeding, required re-exploration yesterday. He is on pressors, but he is making urine. Hemodynamically stable on pressors. His chest tube bleeding has also decreased after re-exploration by Dr. Toledo. Blood pressure today is 108/60, pulse rate is 80 sinus. S1, S2 heard normally. Pericardial rub is evident. Lungs revealed air entry. The patient is on a ventilator with a lot of pressors and support. For now we will continue current medications. No new specific suggestions at this time.
[2016-04-19 13:39] LABS: Glucose,Whole Blood 159 mg/dL (75-99)
[2016-04-19 13:39] LABS: Glucose,Whole Blood 162 mg/dL (75-99)
[2016-04-19 13:39] LABS: Glucose,Whole Blood 156 mg/dL (75-99)
[2016-04-19 13:39] LABS: Glucose,Whole Blood 154 mg/dL (75-99)
[2016-04-19 13:39] LABS: Glucose,Whole Blood 174 mg/dL (75-99)
[2016-04-19 13:40] LABS: Glucose,Whole Blood 129 mg/dL (75-99)
[2016-04-19 13:40] LABS: Glucose,Whole Blood 147 mg/dL (75-99)
[2016-04-19 13:40] LABS: Glucose,Whole Blood 116 mg/dL (75-99)
[2016-04-19 13:40] LABS: Glucose,Whole Blood 148 mg/dL (75-99)
[2016-04-19 13:41] LABS: Glucose,Whole Blood 130 mg/dL (75-99)
[2016-04-19 13:42] LABS: Glucose,Whole Blood 125 mg/dL (75-99)
[2016-04-19 13:42] LABS: Glucose,Whole Blood 123 mg/dL (75-99)
[2016-04-19 14:06] LABS: Glucose,Whole Blood 127 mg/dL (75-99)
[2016-04-19] MEDS ORDERED: IPRATROPIUM-ALBUTEROL 3 ML NEB INHALATION PRN (14:59)
[2016-04-19 15:05] LABS: Glucose,Whole Blood 131 mg/dL (75-99)
[2016-04-19] MEDS: NITROGLYCERIN-D5W PMX 50 MG in DEXTROSE/WATER 1 250ML.BAG IV SCH (15:06)
[2016-04-19] MEDS: SODIUM CHLORIDE 0.9% 99 ML with VASOPRESSIN 20 UNIT IV SCH ×2 (15:07)
--- NOTE | 2016-04-19 15:07 | P.PN ---
Subjective Principal diagnosis: Coronary artery disease, triple vessel, severe left ventricular dysfunction This 76-year-old male patient , post 3 vessel bypass surgery including PHAM to LAD saphenous vein graft to diagonal and ramus branches and aortic valve replacement was currently back in the intensive care unit and the patient is postop day 1. Note that the patient was taken back to the operating room after he arrived the ICU. The patient was having bleeding from his mediastinal chest tubes. Further examination was done and the bleeding site was identified and the local hemostasis was achieved and following that the patient was brought back to the intensive care unit. Overnight, the patient remains on a mechanical ventilator and he remains sedated with Diprivan. He was gradually taken off the vasopressin drip and the Gal-Synephrine drip and both are discontinued. Currently is on 8 mics of norepinephrine infusion and Primacor. He is hemodynamically stable. He remains on a mechanical ventilator and his series of chest x-rays that was done postop showed a partial atelectasis of the right upper lobe which subsequently improved. Morning's chest x-ray showed adequate expansion of the right upper lobe area and there is probably some small better pleural effusion. ET tube is in a good location. The patient has a [place]-Candace catheter in place. There aren't pleural and mediastinal chest tubes are all in place. On the mechanical ventilator, the patient is on a assist-control mode at the rate of 20, tidal volume of 550, FiO2 of 80% and PEEP of 12. He is having some air leak within the mediastinal chest tube. Output however has improved and there is evidence of any acute bleeding. Hemoglobin is stable for now. Objective - Vital Signs Vital signs: Vital Signs Temp 96.8 F L 04/18/16 18:57 Pulse 92 04/19/16 13:05 Resp 18 04/19/16 13:00 BP 91/50 04/19/16 05:30 Pulse Ox 94 L 04/19/16 13:00 Intake & Output 04/18/16 04/19/16 04/19/16 18:59 06:59 18:59 Intake Total 3692.888 2700.740 913.324 Output Total 4333 2782 515 Balance -640.112 -81.260 398.324 Weight 119.8 kg 125.8 kg 125.8 kg Intake: IV 1902.0 1752.0 653 .9NS Cardiac Output 50 310 140 0.9NS Pressure Bag 12 99 63 ACETAMINOPHEN IV (For NPO 200 ) 1,000 mg In Empty Bag 1 bag @ 400 mls/hr IVPB Q6HR [facility] Rx#:[id number] Albumin Human 5% 500 ml 1000 In Empty Bag 1 bag @ 250 mls/hr IVPB ONCE ONE Rx#: [id number] Calcium Gluconate 2,000 100 mg In Sodium Chloride 0.9 % 100 ml @ 100 mls/hr IVPB ONCE ONE Rx#: [id number] Lactated Ringers 1,000 ml 100 550 350 @ 50 mls/hr IV .Q20H [facility] Rx#:[id number] Milrinone-D5w Pmx 20 mg 36 180 In Dextrose/Water 1 100ml .bag @ Per Protocol IV . Q0M [facility] Rx#:[id number] Phenylephrine 40 mg In 15.0 15.0 Sodium Chloride 0.9% 250 ml @ Titrate IV .Q0M [facility] Rx#:[id number] Sodium Chloride 0.9% 99 48 48 ml @ 0.03 UNITS/MIN 9 mls /hr IV .Q11H7M [facility] with Vasopressin 20 unit Rx#: [id number] ceFAZolin 3 gm In Sodium 100 100 100 Chloride 0.9% 100 ml @ 100 mls/hr IVPB Q8HR [facility] Rx#:[id number] ceFAZolin 3 gm In Sodium 100 Chloride 0.9% 30 ml @ 60 mls/hr IVPB ONCE ONE Rx#: [id number] Intake, IV Titration 16.888 603.740 260.324 Amount Albumin Human 5% 250 ml 250 In Empty Bag 1 bag @ 250 mls/hr IVPB Q1HR PRN Rx#: [id number] Insulin Regular 100 unit 13.298 55.360 24.656 In Sodium Chloride 0.9% 100 ml @ Per Protocol IV .Q0M [facility] Rx#:[id number] Milrinone-D5w Pmx 20 mg 100 100.000 In Dextrose/Water 1 100ml .bag @ Per Protocol IV . Q0M [facility] Rx#:[id number] Norepinephrine 16 mg In 41.670 47.639 Sodium Chloride 0.9% 250 ml @ Titrate IV .Q0M [facility] Rx#:[id number] Propofol 500 mg In Empty 3.59 146.410 88.029 Bag 1 bag @ Titrate IV . Q0M [facility] Rx#:[id number] Sodium Chloride 0.9% 99 10.3 ml @ 0.03 UNITS/MIN 9 mls /hr IV .Q11H7M [facility] with Vasopressin 20 unit Rx#: [id number] Blood Product 1774 345 Cryoprecipitate Unit 10 [id number] Cryoprecipitate Unit 10 [id number] Cryoprecipitate Unit 10 [id number] Cryoprecipitate Unit 10 [id number] Cryoprecipitate Unit 10 [id number] Cryoprecipitate Unit 10 [id number] Cryoprecipitate Unit 10 [id number] Cryoprecipitate Unit 5 [id number] Cryoprecipitate Unit 10 [id number] Cryoprecipitate Unit 10 [id number] Ffp 24 Cp2d Unit 246 [id number] Ffp 24 Cpd Unit 304 [id number] Platelet Pheresis Acda2 294 Unit [id number] Rc As-1 Unit 310 [id number] Rc Cpda-1 Unit 250 [id number] Rc Pheresis 2 As3 Unit 310 [id number] Rc Pheresis As-3 Unit 310 [id number] Output: Chest Tube Drainage 963 1502 230 Left Pleural 85 112 40 Mediastinal 650 1270 140 Right Pleural 228 120 50 Drainage 50 40 0 Right Calf 50 40 0 Urine 820 1040 285 Estimated Blood Loss 2500 200 Other: Voiding Method Indwelling Catheter Indwelling Catheter Indwelling Catheter ABP, PAP, CO, CI - Last Documented Arterial Blood Pressure 94/44 Pulmonary Artery Pressure 27/18 Cardiac Output 6.3 Cardiac Index 2.7 - Exam Intubated on the mechanical ventilator., Comfortable sedated with Diprivan.Head exam was generally normal. There was no scleral icterus or corneal arcus. Mucous membranes were moist. Neck is supple there is a right D[place]-Candace catheter in place. No goiter or neck masses. Lungs are diminished bilaterally otherwise there is some few scattered expiratory wheezes. Heart sounds are regular, positive S1-S2 along with that there is a cardiac rub. Chest tubes are all in good location.Abdominal exam revealed normal bowel sounds. The abdomen was soft, non-tender, and without masses, organomegaly, or appreciable enlargement of the abdominal aorta. Extremities showed diminished pulses and there is no cyanosis or clubbing at this point. Neurologically the patient is sedated. - Labs CBC & Chem 7: 04/19/16 05:25 04/19/16 05:25 Labs: Abnormal Lab Results - Last 24 Hours (Table) 04/16/16 04/18/16 04/18/16 Range/Units 04:58 15:07 15:36 WBC (3.8-10.6) k/uL RBC (4.30-5.90) m/uL Hgb (13.0-17.5) gm/dL Hct (39.0-53.0) % Plt Count (150-450) k/uL Neutrophils # (1.3-7.7) k/uL Lymphocytes # (1.0-4.8) k/uL PT (9.0-12.0) sec APTT (22.0-30.0) sec ABG pH (7.35-7.45) ABG pCO2 (35-45) mmHg ABG pO2 (83-108) mmHg ABG HCO3 (21-25) mmol/L ABG O2 Saturation (94-97) % Chloride (98-107) mmol/L BUN (9-20) mg/dL Glucose (74-99) mg/dL POC Glucose (mg/dL) 189 H 165 H (75-99) mg/dL Calcium (8.4-10.2) mg/dL Magnesium (1.6-2.3) mg/dL Total Bilirubin (0.2-1.3) mg/dL Alkaline Phosphatase (38-126) U/L Total Protein (6.3-8.2) g/dL Albumin (3.5-5.0) g/dL Crossmatch See Detail 04/18/16 04/18/16 04/18/16 Range/Units 16:00 16:00 16:00 WBC 13.4 H (3.8-10.6) k/uL RBC 2.39 L (4.30-5.90) m/uL Hgb 7.4 L D (13.0-17.5) gm/dL Hct 21.9 L (39.0-53.0) % Plt Count 105 L (150-450) k/uL Neutrophils # 11.2 H (1.3-7.7) k/uL Lymphocytes # (1.0-4.8) k/uL PT 15.5 H (9.0-12.0) sec APTT 38.9 H (22.0-30.0) sec ABG pH (7.35-7.45) ABG pCO2 (35-45) mmHg ABG pO2 (83-108) mmHg ABG HCO3 (21-25) mmol/L ABG O2 Saturation (94-97) % Chloride (98-107) mmol/L BUN 23 H (9-20) mg/dL Glucose 116 H (74-99) mg/dL POC Glucose (mg/dL) (75-99) mg/dL Calcium 7.8 L (8.4-10.2) mg/dL Magnesium 2.5 H (1.6-2.3) mg/dL Total Bilirubin (0.2-1.3) mg/dL Alkaline Phosphatase 21 L (38-126) U/L Total Protein 4.0 L (6.3-8.2) g/dL Albumin 2.5 L (3.5-5.0) g/dL Crossmatch 04/18/16 04/18/16 04/18/16 Range/Units 16:42 16:44 17:24 WBC (3.8-10.6) k/uL RBC (4.30-5.90) m/uL Hgb (13.0-17.5) gm/dL Hct (39.0-53.0) % Plt Count (150-450) k/uL Neutrophils # (1.3-7.7) k/uL Lymphocytes # (1.0-4.8) k/uL PT (9.0-12.0) sec APTT (22.0-30.0) sec ABG pH (7.35-7.45) ABG pCO2 (35-45) mmHg ABG pO2 67 L (83-108) mmHg ABG HCO3 (21-25) mmol/L ABG O2 Saturation 92.0 L (94-97) % Chloride (98-107) mmol/L BUN (9-20) mg/dL Glucose (74-99) mg/dL POC Glucose (mg/dL) 131 H 128 H (75-99) mg/dL Calcium (8.4-10.2) mg/dL Magnesium (1.6-2.3) mg/dL Total Bilirubin (0.2-1.3) mg/dL Alkaline Phosphatase (38-126) U/L Total Protein (6.3-8.2) g/dL Albumin (3.5-5.0) g/dL Crossmatch 04/18/16 04/18/16 04/18/16 Range/Units 18:08 18:50 20:06 WBC (3.8-10.6) k/uL RBC (4.30-5.90) m/uL Hgb (13.0-17.5) gm/dL Hct (39.0-53.0) % Plt Count (150-450) k/uL Neutrophils # (1.3-7.7) k/uL Lymphocytes # (1.0-4.8) k/uL PT (9.0-12.0) sec APTT (22.0-30.0) sec ABG pH (7.35-7.45) ABG pCO2 (35-45) mmHg ABG pO2 (83-108) mmHg ABG HCO3 (21-25) mmol/L ABG O2 Saturation (94-97) % Chloride (98-107) mmol/L BUN (9-20) mg/dL Glucose (74-99) mg/dL POC Glucose (mg/dL) 137 H 154 H 136 H (75-99) mg/dL Calcium (8.4-10.2) mg/dL Magnesium (1.6-2.3) mg/dL Total Bilirubin (0.2-1.3) mg/dL Alkaline Phosphatase (38-126) U/L Total Protein (6.3-8.2) g/dL Albumin (3.5-5.0) g/dL Crossmatch 04/18/16 04/18/16 04/18/16 Range/Units 21:55 22:00 22:00 WBC (3.8-10.6) k/uL RBC (4.30-5.90) m/uL Hgb (13.0-17.5) gm/dL Hct (39.0-53.0) % Plt Count (150-450) k/uL Neutrophils # (1.3-7.7) k/uL Lymphocytes # (1.0-4.8) k/uL PT (9.0-12.0) sec APTT 38.7 H (22.0-30.0) sec ABG pH (7.35-7.45) ABG pCO2 32 L (35-45) mmHg ABG pO2 71 L (83-108) mmHg ABG HCO3 20 L (21-25) mmol/L ABG O2 Saturation (94-97) % Chloride (98-107) mmol/L BUN 23 H (9-20) mg/dL Glucose 126 H (74-99) mg/dL POC Glucose (mg/dL) (75-99) mg/dL Calcium 8.0 L (8.4-10.2) mg/dL Magnesium (1.6-2.3) mg/dL Total Bilirubin 2.0 H (0.2-1.3) mg/dL Alkaline Phosphatase 33 L (38-126) U/L Total Protein 4.7 L (6.3-8.2) g/dL Albumin 3.1 L (3.5-5.0) g/dL Crossmatch 04/18/16 04/18/16 04/18/16 Range/Units 22:00 22:00 22:01 WBC (3.8-10.6) k/uL RBC 2.42 L (4.30-5.90) m/uL Hgb 7.3 L (13.0-17.5) gm/dL Hct 21.7 L (39.0-53.0) % Plt Count 78 L (150-450) k/uL Neutrophils # (1.3-7.7) k/uL Lymphocytes # 0.5 L (1.0-4.8) k/uL PT 12.8 H (9.0-12.0) sec APTT (22.0-30.0) sec ABG pH (7.35-7.45) ABG pCO2 (35-45) mmHg ABG pO2 (83-108) mmHg ABG HCO3 (21-25) mmol/L ABG O2 Saturation (94-97) % Chloride (98-107) mmol/L BUN (9-20) mg/dL Glucose (74-99) mg/dL POC Glucose (mg/dL) 138 H (75-99) mg/dL Calcium (8.4-10.2) mg/dL Magnesium (1.6-2.3) mg/dL Total Bilirubin (0.2-1.3) mg/dL Alkaline Phosphatase (38-126) U/L Total Protein (6.3-8.2) g/dL Albumin (3.5-5.0) g/dL Crossmatch 04/18/16 04/19/16 04/19/16 Range/Units 23:07 00:23 01:13 WBC (3.8-10.6) k/uL RBC (4.30-5.90) m/uL Hgb (13.0-17.5) gm/dL Hct (39.0-53.0) % Plt Count (150-450) k/uL Neutrophils # (1.3-7.7) k/uL Lymphocytes # (1.0-4.8) k/uL PT (9.0-12.0) sec APTT (22.0-30.0) sec ABG pH (7.35-7.45) ABG pCO2 (35-45) mmHg ABG pO2 (83-108) mmHg ABG HCO3 (21-25) mmol/L ABG O2 Saturation (94-97) % Chloride (98-107) mmol/L BUN (9-20) mg/dL Glucose (74-99) mg/dL POC Glucose (mg/dL) 155 H 170 H 173 H (75-99) mg/dL Calcium (8.4-10.2) mg/dL Magnesium (1.6-2.3) mg/dL Total Bilirubin (0.2-1.3) mg/dL Alkaline Phosphatase (38-126) U/L Total Protein (6.3-8.2) g/dL Albumin (3.5-5.0) g/dL Crossmatch 04/19/16 04/19/16 04/19/16 Range/Units 02:04 03:09 04:13 WBC (3.8-10.6) k/uL RBC (4.30-5.90) m/uL Hgb (13.0-17.5) gm/dL Hct (39.0-53.0) % Plt Count (150-450) k/uL Neutrophils # (1.3-7.7) k/uL Lymphocytes # (1.0-4.8) k/uL PT (9.0-12.0) sec APTT (22.0-30.0) sec ABG pH (7.35-7.45) ABG pCO2 (35-45) mmHg ABG pO2 (83-108) mmHg ABG HCO3 (21-25) mmol/L ABG O2 Saturation (94-97) % Chloride (98-107) mmol/L BUN (9-20) mg/dL Glucose (74-99) mg/dL POC Glucose (mg/dL) 174 H 162 H 159 H (75-99) mg/dL Calcium (8.4-10.2) mg/dL Magnesium (1.6-2.3) mg/dL Total Bilirubin (0.2-1.3) mg/dL Alkaline Phosphatase (38-126) U/L Total Protein (6.3-8.2) g/dL Albumin (3.5-5.0) g/dL Crossmatch 04/19/16 04/19/16 04/19/16 Range/Units 04:32 05:21 05:25 WBC (3.8-10.6) k/uL RBC 2.37 L (4.30-5.90) m/uL Hgb 7.3 L (13.0-17.5) gm/dL Hct 21.1 L (39.0-53.0) % Plt Count 89 L (150-450) k/uL Neutrophils # (1.3-7.7) k/uL Lymphocytes # (1.0-4.8) k/uL PT (9.0-12.0) sec APTT (22.0-30.0) sec ABG pH 7.47 H (7.35-7.45) ABG pCO2 31 L (35-45) mmHg ABG pO2 137 H (83-108) mmHg ABG HCO3 (21-25) mmol/L ABG O2 Saturation 99.0 H (94-97) % Chloride (98-107) mmol/L BUN (9-20) mg/dL Glucose (74-99) mg/dL POC Glucose (mg/dL) 156 H (75-99) mg/dL Calcium (8.4-10.2) mg/dL Magnesium (1.6-2.3) mg/dL Total Bilirubin (0.2-1.3) mg/dL Alkaline Phosphatase (38-126) U/L Total Protein (6.3-8.2) g/dL Albumin (3.5-5.0) g/dL Crossmatch 04/19/16 04/19/16 04/19/16 Range/Units 05:25 06:11 07:14 WBC (3.8-10.6) k/uL RBC (4.30-5.90) m/uL Hgb (13.0-17.5) gm/dL Hct (39.0-53.0) % Plt Count (150-450) k/uL Neutrophils # (1.3-7.7) k/uL Lymphocytes # (1.0-4.8) k/uL PT (9.0-12.0) sec APTT (22.0-30.0) sec ABG pH (7.35-7.45) ABG pCO2 (35-45) mmHg ABG pO2 (83-108) mmHg ABG HCO3 (21-25) mmol/L ABG O2 Saturation (94-97) % Chloride 108 H (98-107) mmol/L BUN 24 H (9-20) mg/dL Glucose 145 H (74-99) mg/dL POC Glucose (mg/dL) 154 H 147 H (75-99) mg/dL Calcium 8.0 L (8.4-10.2) mg/dL Magnesium (1.6-2.3) mg/dL Total Bilirubin (0.2-1.3) mg/dL Alkaline Phosphatase 34 L (38-126) U/L Total Protein 4.7 L (6.3-8.2) g/dL Albumin 3.0 L (3.5-5.0) g/dL Crossmatch 04/19/16 04/19/16 04/19/16 Range/Units 08:00 09:01 09:54 WBC (3.8-10.6) k/uL RBC (4.30-5.90) m/uL Hgb (13.0-17.5) gm/dL Hct (39.0-53.0) % Plt Count (150-450) k/uL Neutrophils # (1.3-7.7) k/uL Lymphocytes # (1.0-4.8) k/uL PT (9.0-12.0) sec APTT (22.0-30.0) sec ABG pH (7.35-7.45) ABG pCO2 (35-45) mmHg ABG pO2 (83-108) mmHg ABG HCO3 (21-25) mmol/L ABG O2 Saturation (94-97) % Chloride (98-107) mmol/L BUN (9-20) mg/dL Glucose (74-99) mg/dL POC Glucose (mg/dL) 148 H 129 H 116 H (75-99) mg/dL Calcium (8.4-10.2) mg/dL Magnesium (1.6-2.3) mg/dL Total Bilirubin (0.2-1.3) mg/dL Alkaline Phosphatase (38-126) U/L Total Protein (6.3-8.2) g/dL Albumin (3.5-5.0) g/dL Crossmatch 04/19/16 04/19/16 04/19/16 Range/Units 11:04 11:10 12:16 WBC (3.8-10.6) k/uL RBC (4.30-5.90) m/uL Hgb (13.0-17.5) gm/dL Hct (39.0-53.0) % Plt Count (150-450) k/uL Neutrophils # (1.3-7.7) k/uL Lymphocytes # (1.0-4.8) k/uL PT (9.0-12.0) sec APTT (22.0-30.0) sec ABG pH 7.48 H (7.35-7.45) ABG pCO2 31 L (35-45) mmHg ABG pO2 82 L (83-108) mmHg ABG HCO3 (21-25) mmol/L ABG O2 Saturation (94-97) % Chloride (98-107) mmol/L BUN (9-20) mg/dL Glucose (74-99) mg/dL POC Glucose (mg/dL) 130 H 125 H (75-99) mg/dL Calcium (8.4-10.2) mg/dL Magnesium (1.6-2.3) mg/dL Total Bilirubin (0.2-1.3) mg/dL Alkaline Phosphatase (38-126) U/L Total Protein (6.3-8.2) g/dL Albumin (3.5-5.0) g/dL Crossmatch 04/19/16 04/19/16 Range/Units 13:03 14:04 WBC (3.8-10.6) k/uL RBC (4.30-5.90) m/uL Hgb (13.0-17.5) gm/dL Hct (39.0-53.0) % Plt Count (150-450) k/uL Neutrophils # (1.3-7.7) k/uL Lymphocytes # (1.0-4.8) k/uL PT (9.0-12.0) sec APTT (22.0-30.0) sec ABG pH (7.35-7.45) ABG pCO2 (35-45) mmHg ABG pO2 (83-108) mmHg ABG HCO3 (21-25) mmol/L ABG O2 Saturation (94-97) % Chloride (98-107) mmol/L BUN (9-20) mg/dL Glucose (74-99) mg/dL POC Glucose (mg/dL) 123 H 127 H (75-99) mg/dL Calcium (8.4-10.2) mg/dL Magnesium (1.6-2.3) mg/dL Total Bilirubin (0.2-1.3) mg/dL Alkaline Phosphatase (38-126) U/L Total Protein (6.3-8.2) g/dL Albumin (3.5-5.0) g/dL Crossmatch Microbiology - Last 24 Hours (Table) 04/17/16 14:28 Urine Culture - Final Urine,Clean Catch Assessment and Plan Plan: Assessment 1 shortness of breath essentially of a cardiac in nature. 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 CTA of the chest shows changes consistent with CHF with small bilateral pleural effusion and groundglass pulmonary infiltrates consistent with interstitial edema/CHF. On 04/18/2016, the patient is being seen postop. The patient underwent three- vessel bypass surgery and aortic valve replacement. Currently intubated on mechanical ventilator. Patient is on a multitude of pressors including a combination of norepinephrine infusion, vasopressin, Gal-Synephrine and Primacor. Most recent cardiac index at 2.7. Chest tubes are all in place. On 04/19/2016, the patient is being seen in follow-up. The patient was taken to the operating room force postoperative bleeding. The patient was taken back to the operating room and the patient was found to have bleeding from the ventricular pacing wire site in the right ventricle. He was given. He dad a resternotomy after the control of bleeding and currently is still in the process of being stabilized and weaned off the mechanical ventilator. During the process, he had a partial right upper lobe collapse which seems to be expanded on today's chest x-ray. He remains on a high degree of PEEP at 12 and he is having some minor air leak through the based on the chest tube. Lungs are well expanded and there is no evidence of pneumothorax. Hemodynamically better on lower doses of norepinephrine infusion and Primacor and the patient is currently off vasopressin and Gal-Synephrine. Sedated on a mechanical ventilator. Hemoglobin is stable in addition. 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 8 osteoarthritis 9 acute kidney injury, improved 10 obesity Plan We will gradually wean down the FiO2 to bring it as low as 50% and following that will gradually weaned down the PEEP. The current PEEP is at 12. Keep the rest of the tidal volume and respiratory rate unchanged. Monitor the output from the chest tubes. Monitor hemoglobin. Monitor hemodynamics. Wean off the norepinephrine infusion. May consider weaning him off the mechanical ventilator if his oxygenation improved over the next 12-24 hours. We'll continue to follow.
[2016-04-19] MEDS: CLEVIDIPINE BUTYRATE 25 MG in EMPTY BAG 1 BAG IV SCH (15:08)
--- NOTE | 2016-04-19 15:59 | P.PN ---
Subjective Principal diagnosis: Coronary artery disease, triple vessel, severe left ventricular dysfunction 76-year-old gentleman is admitted to the hospital with chest pain, patient was noted to have an and STEMI. Patient underwent a triple-vessel CABG and aortic valve replacement. Patient had be taken back to the or for reexploration of cardiac wall breathing. Patient is currently on pressor support. Patient is sedated and intubated and was noted to have stable blood pressure on levophed and Primacor. Patient apparently was arousable and was responding to questions appropriately during sedation vacation. No Objective - Vital Signs Vital signs: Vital Signs Temp 96.8 F L 04/18/16 18:57 Pulse 86 04/19/16 15:30 Resp 17 04/19/16 15:30 BP 91/50 04/19/16 05:30 Pulse Ox 97 04/19/16 15:30 Intake & Output 04/18/16 04/19/16 04/19/16 18:59 06:59 18:59 Intake Total 3692.888 2700.740 1075.663 Output Total 4333 2782 685 Balance -640.112 -81.260 390.663 Weight 119.8 kg 125.8 kg 125.8 kg Intake: IV 1902.0 1752.0 791 .9NS Cardiac Output 50 310 160 0.9NS Pressure Bag 12 99 81 ACETAMINOPHEN IV (For NPO 200 ) 1,000 mg In Empty Bag 1 bag @ 400 mls/hr IVPB Q6HR [facility] Rx#:[id number] Albumin Human 5% 500 ml 1000 In Empty Bag 1 bag @ 250 mls/hr IVPB ONCE ONE Rx#: [id number] Calcium Gluconate 2,000 100 mg In Sodium Chloride 0.9 % 100 ml @ 100 mls/hr IVPB ONCE ONE Rx#: [id number] Lactated Ringers 1,000 ml 100 550 450 @ 50 mls/hr IV .Q20H [facility] Rx#:[id number] Milrinone-D5w Pmx 20 mg 36 180 In Dextrose/Water 1 100ml .bag @ Per Protocol IV . Q0M [facility] Rx#:[id number] Phenylephrine 40 mg In 15.0 15.0 Sodium Chloride 0.9% 250 ml @ Titrate IV .Q0M [facility] Rx#:[id number] Sodium Chloride 0.9% 99 48 48 ml @ 0.03 UNITS/MIN 9 mls /hr IV .Q11H7M [facility] with Vasopressin 20 unit Rx#: [id number] ceFAZolin 3 gm In Sodium 100 100 100 Chloride 0.9% 100 ml @ 100 mls/hr IVPB Q8HR [facility] Rx#:[id number] ceFAZolin 3 gm In Sodium 100 Chloride 0.9% 30 ml @ 60 mls/hr IVPB ONCE ONE Rx#: [id number] Intake, IV Titration 16.888 603.740 284.663 Amount Albumin Human 5% 250 ml 250 In Empty Bag 1 bag @ 250 mls/hr IVPB Q1HR PRN Rx#: [id number] Insulin Regular 100 unit 13.298 55.360 24.656 In Sodium Chloride 0.9% 100 ml @ Per Protocol IV .Q0M [facility] Rx#:[id number] Milrinone-D5w Pmx 20 mg 100 100.000 In Dextrose/Water 1 100ml .bag @ Per Protocol IV . Q0M [facility] Rx#:[id number] Norepinephrine 16 mg In 41.670 71.978 Sodium Chloride 0.9% 250 ml @ Titrate IV .Q0M [facility] Rx#:[id number] Propofol 500 mg In Empty 3.59 146.410 88.029 Bag 1 bag @ Titrate IV . Q0M [facility] Rx#:[id number] Sodium Chloride 0.9% 99 10.3 ml @ 0.03 UNITS/MIN 9 mls /hr IV .Q11H7M [facility] with Vasopressin 20 unit Rx#: [id number] Blood Product 1774 345 Cryoprecipitate Unit 10 [id number] Cryoprecipitate Unit 10 [id number] Cryoprecipitate Unit 10 [id number] Cryoprecipitate Unit 10 [id number] Cryoprecipitate Unit 10 [id number] Cryoprecipitate Unit 10 [id number] Cryoprecipitate Unit 10 [id number] Cryoprecipitate Unit 5 [id number] Cryoprecipitate Unit 10 [id number] Cryoprecipitate Unit 10 [id number] Ffp 24 Cp2d Unit 246 [id number] Ffp 24 Cpd Unit 304 [id number] Platelet Pheresis Acda2 294 Unit [id number] Rc As-1 Unit 310 [id number] Rc Cpda-1 Unit 250 [id number] Rc Pheresis 2 As3 Unit 310 [id number] Rc Pheresis As-3 Unit 310 [id number] Output: Chest Tube Drainage 963 1502 290 Left Pleural 85 112 60 Mediastinal 650 1270 180 Right Pleural 228 120 50 Drainage 50 40 0 Right Calf 50 40 0 Urine 820 1040 395 Estimated Blood Loss 2500 200 Other: Voiding Method Indwelling Catheter Indwelling Catheter Indwelling Catheter ABP, PAP, CO, CI - Last Documented Arterial Blood Pressure 110/44 Pulmonary Artery Pressure 28/15 Cardiac Output 6.3 Cardiac Index 2.7 - Exam Gen. appearance intubated and sedated Lungs diminished breath sounds however good air movement noted Heart no murmurs appreciated S1 and S2 heart Abdomen is soft nontender organomegaly Lower extremity no edema appreciated Neurologically deferred due to as patient is sedated. - Labs CBC & Chem 7: 04/19/16 05:25 04/19/16 05:25 Labs: Abnormal Lab Results - Last 24 Hours (Table) 04/16/16 04/18/16 04/18/16 Range/Units 04:58 16:00 16:00 WBC 13.4 H (3.8-10.6) k/uL RBC 2.39 L (4.30-5.90) m/uL Hgb 7.4 L D (13.0-17.5) gm/dL Hct 21.9 L (39.0-53.0) % Plt Count 105 L (150-450) k/uL Neutrophils # 11.2 H (1.3-7.7) k/uL Lymphocytes # (1.0-4.8) k/uL PT 15.5 H (9.0-12.0) sec APTT 38.9 H (22.0-30.0) sec ABG pH (7.35-7.45) ABG pCO2 (35-45) mmHg ABG pO2 (83-108) mmHg ABG HCO3 (21-25) mmol/L ABG O2 Saturation (94-97) % Chloride (98-107) mmol/L BUN (9-20) mg/dL Glucose (74-99) mg/dL POC Glucose (mg/dL) (75-99) mg/dL Calcium (8.4-10.2) mg/dL Magnesium (1.6-2.3) mg/dL Total Bilirubin (0.2-1.3) mg/dL Alkaline Phosphatase (38-126) U/L Total Protein (6.3-8.2) g/dL Albumin (3.5-5.0) g/dL Crossmatch See Detail 04/18/16 04/18/16 04/18/16 Range/Units 16:00 16:42 16:44 WBC (3.8-10.6) k/uL RBC (4.30-5.90) m/uL Hgb (13.0-17.5) gm/dL Hct (39.0-53.0) % Plt Count (150-450) k/uL Neutrophils # (1.3-7.7) k/uL Lymphocytes # (1.0-4.8) k/uL PT (9.0-12.0) sec APTT (22.0-30.0) sec ABG pH (7.35-7.45) ABG pCO2 (35-45) mmHg ABG pO2 67 L (83-108) mmHg ABG HCO3 (21-25) mmol/L ABG O2 Saturation 92.0 L (94-97) % Chloride (98-107) mmol/L BUN 23 H (9-20) mg/dL Glucose 116 H (74-99) mg/dL POC Glucose (mg/dL) 131 H (75-99) mg/dL Calcium 7.8 L (8.4-10.2) mg/dL Magnesium 2.5 H (1.6-2.3) mg/dL Total Bilirubin (0.2-1.3) mg/dL Alkaline Phosphatase 21 L (38-126) U/L Total Protein 4.0 L (6.3-8.2) g/dL Albumin 2.5 L (3.5-5.0) g/dL Crossmatch 04/18/16 04/18/16 04/18/16 Range/Units 17:24 18:08 18:50 WBC (3.8-10.6) k/uL RBC (4.30-5.90) m/uL Hgb (13.0-17.5) gm/dL Hct (39.0-53.0) % Plt Count (150-450) k/uL Neutrophils # (1.3-7.7) k/uL Lymphocytes # (1.0-4.8) k/uL PT (9.0-12.0) sec APTT (22.0-30.0) sec ABG pH (7.35-7.45) ABG pCO2 (35-45) mmHg ABG pO2 (83-108) mmHg ABG HCO3 (21-25) mmol/L ABG O2 Saturation (94-97) % Chloride (98-107) mmol/L BUN (9-20) mg/dL Glucose (74-99) mg/dL POC Glucose (mg/dL) 128 H 137 H 154 H (75-99) mg/dL Calcium (8.4-10.2) mg/dL Magnesium (1.6-2.3) mg/dL Total Bilirubin (0.2-1.3) mg/dL Alkaline Phosphatase (38-126) U/L Total Protein (6.3-8.2) g/dL Albumin (3.5-5.0) g/dL Crossmatch 04/18/16 04/18/16 04/18/16 Range/Units 20:06 21:55 22:00 WBC (3.8-10.6) k/uL RBC (4.30-5.90) m/uL Hgb (13.0-17.5) gm/dL Hct (39.0-53.0) % Plt Count (150-450) k/uL Neutrophils # (1.3-7.7) k/uL Lymphocytes # (1.0-4.8) k/uL PT (9.0-12.0) sec APTT 38.7 H (22.0-30.0) sec ABG pH (7.35-7.45) ABG pCO2 32 L (35-45) mmHg ABG pO2 71 L (83-108) mmHg ABG HCO3 20 L (21-25) mmol/L ABG O2 Saturation (94-97) % Chloride (98-107) mmol/L BUN (9-20) mg/dL Glucose (74-99) mg/dL POC Glucose (mg/dL) 136 H (75-99) mg/dL Calcium (8.4-10.2) mg/dL Magnesium (1.6-2.3) mg/dL Total Bilirubin (0.2-1.3) mg/dL Alkaline Phosphatase (38-126) U/L Total Protein (6.3-8.2) g/dL Albumin (3.5-5.0) g/dL Crossmatch 04/18/16 04/18/16 04/18/16 Range/Units 22:00 22:00 22:00 WBC (3.8-10.6) k/uL RBC 2.42 L (4.30-5.90) m/uL Hgb 7.3 L (13.0-17.5) gm/dL Hct 21.7 L (39.0-53.0) % Plt Count 78 L (150-450) k/uL Neutrophils # (1.3-7.7) k/uL Lymphocytes # 0.5 L (1.0-4.8) k/uL PT 12.8 H (9.0-12.0) sec APTT (22.0-30.0) sec ABG pH (7.35-7.45) ABG pCO2 (35-45) mmHg ABG pO2 (83-108) mmHg ABG HCO3 (21-25) mmol/L ABG O2 Saturation (94-97) % Chloride (98-107) mmol/L BUN 23 H (9-20) mg/dL Glucose 126 H (74-99) mg/dL POC Glucose (mg/dL) (75-99) mg/dL Calcium 8.0 L (8.4-10.2) mg/dL Magnesium (1.6-2.3) mg/dL Total Bilirubin 2.0 H (0.2-1.3) mg/dL Alkaline Phosphatase 33 L (38-126) U/L Total Protein 4.7 L (6.3-8.2) g/dL Albumin 3.1 L (3.5-5.0) g/dL Crossmatch 04/18/16 04/18/16 04/19/16 Range/Units 22:01 23:07 00:23 WBC (3.8-10.6) k/uL RBC (4.30-5.90) m/uL Hgb (13.0-17.5) gm/dL Hct (39.0-53.0) % Plt Count (150-450) k/uL Neutrophils # (1.3-7.7) k/uL Lymphocytes # (1.0-4.8) k/uL PT (9.0-12.0) sec APTT (22.0-30.0) sec ABG pH (7.35-7.45) ABG pCO2 (35-45) mmHg ABG pO2 (83-108) mmHg ABG HCO3 (21-25) mmol/L ABG O2 Saturation (94-97) % Chloride (98-107) mmol/L BUN (9-20) mg/dL Glucose (74-99) mg/dL POC Glucose (mg/dL) 138 H 155 H 170 H (75-99) mg/dL Calcium (8.4-10.2) mg/dL Magnesium (1.6-2.3) mg/dL Total Bilirubin (0.2-1.3) mg/dL Alkaline Phosphatase (38-126) U/L Total Protein (6.3-8.2) g/dL Albumin (3.5-5.0) g/dL Crossmatch 04/19/16 04/19/16 04/19/16 Range/Units 01:13 02:04 03:09 WBC (3.8-10.6) k/uL RBC (4.30-5.90) m/uL Hgb (13.0-17.5) gm/dL Hct (39.0-53.0) % Plt Count (150-450) k/uL Neutrophils # (1.3-7.7) k/uL Lymphocytes # (1.0-4.8) k/uL PT (9.0-12.0) sec APTT (22.0-30.0) sec ABG pH (7.35-7.45) ABG pCO2 (35-45) mmHg ABG pO2 (83-108) mmHg ABG HCO3 (21-25) mmol/L ABG O2 Saturation (94-97) % Chloride (98-107) mmol/L BUN (9-20) mg/dL Glucose (74-99) mg/dL POC Glucose (mg/dL) 173 H 174 H 162 H (75-99) mg/dL Calcium (8.4-10.2) mg/dL Magnesium (1.6-2.3) mg/dL Total Bilirubin (0.2-1.3) mg/dL Alkaline Phosphatase (38-126) U/L Total Protein (6.3-8.2) g/dL Albumin (3.5-5.0) g/dL Crossmatch 04/19/16 04/19/16 04/19/16 Range/Units 04:13 04:32 05:21 WBC (3.8-10.6) k/uL RBC (4.30-5.90) m/uL Hgb (13.0-17.5) gm/dL Hct (39.0-53.0) % Plt Count (150-450) k/uL Neutrophils # (1.3-7.7) k/uL Lymphocytes # (1.0-4.8) k/uL PT (9.0-12.0) sec APTT (22.0-30.0) sec ABG pH 7.47 H (7.35-7.45) ABG pCO2 31 L (35-45) mmHg ABG pO2 137 H (83-108) mmHg ABG HCO3 (21-25) mmol/L ABG O2 Saturation 99.0 H (94-97) % Chloride (98-107) mmol/L BUN (9-20) mg/dL Glucose (74-99) mg/dL POC Glucose (mg/dL) 159 H 156 H (75-99) mg/dL Calcium (8.4-10.2) mg/dL Magnesium (1.6-2.3) mg/dL Total Bilirubin (0.2-1.3) mg/dL Alkaline Phosphatase (38-126) U/L Total Protein (6.3-8.2) g/dL Albumin (3.5-5.0) g/dL Crossmatch 04/19/16 04/19/16 04/19/16 Range/Units 05:25 05:25 06:11 WBC (3.8-10.6) k/uL RBC 2.37 L (4.30-5.90) m/uL Hgb 7.3 L (13.0-17.5) gm/dL Hct 21.1 L (39.0-53.0) % Plt Count 89 L (150-450) k/uL Neutrophils # (1.3-7.7) k/uL Lymphocytes # (1.0-4.8) k/uL PT (9.0-12.0) sec APTT (22.0-30.0) sec ABG pH (7.35-7.45) ABG pCO2 (35-45) mmHg ABG pO2 (83-108) mmHg ABG HCO3 (21-25) mmol/L ABG O2 Saturation (94-97) % Chloride 108 H (98-107) mmol/L BUN 24 H (9-20) mg/dL Glucose 145 H (74-99) mg/dL POC Glucose (mg/dL) 154 H (75-99) mg/dL Calcium 8.0 L (8.4-10.2) mg/dL Magnesium (1.6-2.3) mg/dL Total Bilirubin (0.2-1.3) mg/dL Alkaline Phosphatase 34 L (38-126) U/L Total Protein 4.7 L (6.3-8.2) g/dL Albumin 3.0 L (3.5-5.0) g/dL Crossmatch 04/19/16 04/19/16 04/19/16 Range/Units 07:14 08:00 09:01 WBC (3.8-10.6) k/uL RBC (4.30-5.90) m/uL Hgb (13.0-17.5) gm/dL Hct (39.0-53.0) % Plt Count (150-450) k/uL Neutrophils # (1.3-7.7) k/uL Lymphocytes # (1.0-4.8) k/uL PT (9.0-12.0) sec APTT (22.0-30.0) sec ABG pH (7.35-7.45) ABG pCO2 (35-45) mmHg ABG pO2 (83-108) mmHg ABG HCO3 (21-25) mmol/L ABG O2 Saturation (94-97) % Chloride (98-107) mmol/L BUN (9-20) mg/dL Glucose (74-99) mg/dL POC Glucose (mg/dL) 147 H 148 H 129 H (75-99) mg/dL Calcium (8.4-10.2) mg/dL Magnesium (1.6-2.3) mg/dL Total Bilirubin (0.2-1.3) mg/dL Alkaline Phosphatase (38-126) U/L Total Protein (6.3-8.2) g/dL Albumin (3.5-5.0) g/dL Crossmatch 04/19/16 04/19/16 04/19/16 Range/Units 09:54 11:04 11:10 WBC (3.8-10.6) k/uL RBC (4.30-5.90) m/uL Hgb (13.0-17.5) gm/dL Hct (39.0-53.0) % Plt Count (150-450) k/uL Neutrophils # (1.3-7.7) k/uL Lymphocytes # (1.0-4.8) k/uL PT (9.0-12.0) sec APTT (22.0-30.0) sec ABG pH 7.48 H (7.35-7.45) ABG pCO2 31 L (35-45) mmHg ABG pO2 82 L (83-108) mmHg ABG HCO3 (21-25) mmol/L ABG O2 Saturation (94-97) % Chloride (98-107) mmol/L BUN (9-20) mg/dL Glucose (74-99) mg/dL POC Glucose (mg/dL) 116 H 130 H (75-99) mg/dL Calcium (8.4-10.2) mg/dL Magnesium (1.6-2.3) mg/dL Total Bilirubin (0.2-1.3) mg/dL Alkaline Phosphatase (38-126) U/L Total Protein (6.3-8.2) g/dL Albumin (3.5-5.0) g/dL Crossmatch 04/19/16 04/19/16 04/19/16 Range/Units 12:16 13:03 14:04 WBC (3.8-10.6) k/uL RBC (4.30-5.90) m/uL Hgb (13.0-17.5) gm/dL Hct (39.0-53.0) % Plt Count (150-450) k/uL Neutrophils # (1.3-7.7) k/uL Lymphocytes # (1.0-4.8) k/uL PT (9.0-12.0) sec APTT (22.0-30.0) sec ABG pH (7.35-7.45) ABG pCO2 (35-45) mmHg ABG pO2 (83-108) mmHg ABG HCO3 (21-25) mmol/L ABG O2 Saturation (94-97) % Chloride (98-107) mmol/L BUN (9-20) mg/dL Glucose (74-99) mg/dL POC Glucose (mg/dL) 125 H 123 H 127 H (75-99) mg/dL Calcium (8.4-10.2) mg/dL Magnesium (1.6-2.3) mg/dL Total Bilirubin (0.2-1.3) mg/dL Alkaline Phosphatase (38-126) U/L Total Protein (6.3-8.2) g/dL Albumin (3.5-5.0) g/dL Crossmatch 04/19/16 Range/Units 15:04 WBC (3.8-10.6) k/uL RBC (4.30-5.90) m/uL Hgb (13.0-17.5) gm/dL Hct (39.0-53.0) % Plt Count (150-450) k/uL Neutrophils # (1.3-7.7) k/uL Lymphocytes # (1.0-4.8) k/uL PT (9.0-12.0) sec APTT (22.0-30.0) sec ABG pH (7.35-7.45) ABG pCO2 (35-45) mmHg ABG pO2 (83-108) mmHg ABG HCO3 (21-25) mmol/L ABG O2 Saturation (94-97) % Chloride (98-107) mmol/L BUN (9-20) mg/dL Glucose (74-99) mg/dL POC Glucose (mg/dL) 131 H (75-99) mg/dL Calcium (8.4-10.2) mg/dL Magnesium (1.6-2.3) mg/dL Total Bilirubin (0.2-1.3) mg/dL Alkaline Phosphatase (38-126) U/L Total Protein (6.3-8.2) g/dL Albumin (3.5-5.0) g/dL Crossmatch Microbiology - 24 Hours (Table) 04/17/16 14:28 Urine Culture - Final Urine,Clean Catch Assessment and Plan Plan: #1 acute hypoxic respiratory failure as expected from my recent cardiac surgery. #2 shock as expected from recent cardiac surgery #3 CAD #4 congestive heart failure with a preoperative ejection fraction of 20-25% #5 COPD #6 osteoporosis #7 obesity #8 acute kidney injury which is improved. #9 questionable right atrial thrombus on the echocardiogram initially Plan Titrated off pressors as tolerated. Patient's current ventilator settings are noted to be at 18 respiratory rate, 650 tidal volume, 50% FiO2 and a PEEP of 12 cm water. Management for pulmonary critical care physician. Continues to have chest tubes. Management per general surgery Insulin drip at 4.5 units per hour continue and titrate off
[2016-04-19 16:18] LABS: Glucose,Whole Blood 123 mg/dL (75-99)
[2016-04-19 16:56] LABS: Glucose,Whole Blood 126 mg/dL (75-99)
[2016-04-19] MEDS: HEPARIN SODIUM,PORCINE 5,000 UNIT/ML 1 ML VIAL SQ SCH (16:58)
[2016-04-19 17:03] LABS: ABG Base Excess 0.5 mmol/L; ABG HCO3 24 mmol/L (21-25); ABG PCO2 31 mmHg (35-45); ABG PH 7.49 (7.35-7.45); ABG PO2 93 mmHg (83-108); ABG TCO2 25 mmol/L (19-24)
[2016-04-19 18:07] LABS: Glucose,Whole Blood 120 mg/dL (75-99)
[2016-04-19 19:14] LABS: Glucose,Whole Blood 117 mg/dL (75-99)
[2016-04-19 20:25] LABS: Glucose,Whole Blood 104 mg/dL (75-99)
[2016-04-19 20:58] LABS: Glucose,Whole Blood 124 mg/dL (75-99)
[2016-04-19] MEDS: SENNOSIDES-DOCUSATE SODIUM 1 EACH TAB PO SCH (21:01)
[2016-04-19 21:59] LABS: Glucose,Whole Blood 108 mg/dL (75-99)
[2016-04-19 23:11] LABS: Glucose,Whole Blood 124 mg/dL (75-99)
[2016-04-20 00:05] LABS: Glucose,Whole Blood 131 mg/dL (75-99)
[2016-04-20] MEDS: PROPOFOL 500 MG in EMPTY BAG 1 BAG IV SCH ×6 (00:42→23:19)
[2016-04-20] MEDS: HEPARIN SODIUM,PORCINE 5,000 UNIT/ML 1 ML VIAL SQ SCH ×3 (00:49→17:03)
[2016-04-20] MEDS: SODIUM CHLORIDE 0.9% 99 ML with VASOPRESSIN 20 UNIT IV SCH ×4 (00:49→16:59)
[2016-04-20 00:53] LABS: Glucose,Whole Blood 127 mg/dL (75-99)
[2016-04-20 02:04] LABS: Glucose,Whole Blood 129 mg/dL (75-99)
[2016-04-20 02:54] LABS: Glucose,Whole Blood 130 mg/dL (75-99)
[2016-04-20] MEDS: IPRATROPIUM-ALBUTEROL 3 ML NEB INHALATION SCH ×8 (03:04→23:23)
[2016-04-20 03:55] LABS: Glucose,Whole Blood 142 mg/dL (75-99)
[2016-04-20 04:11] LABS: INR 1.1 (<1.1); Prothrombin Time 11.3 sec (9.0-12.0)
[2016-04-20 04:15] LABS: Ionized Calcium 4.6 mg/dL (4.5-5.3)
[2016-04-20 04:24] LABS: ALT 35 U/L (21-72); AST 74 U/L (17-59); Alkaline Phosphatase 40 U/L (38-126); Anion Gap 8 mmol/L; Basophils % (A) 0 %; Blood Urea Nitrogen 25 mg/dL (9-20); CH 30.7; CHCM 34.8; Calcium 7.9 mg/dL (8.4-10.2); Carbon Dioxide 26 mmol/L (22-30); Chloride 107 mmol/L (98-107); Eosinophils % (A) 0 %; Glucose 120 mg/dL (74-99); HCT 20.6 % (39.0-53.0); HDW 2.97; HGB 6.8 gm/dL (13.0-17.5); Luc # (Auto) 0.19; Luc % (Auto) 2; Lymphocytes # (A) 1.4 k/uL (1.0-4.8); Lymphocytes % (A) 14 %; MCH 29.5 pg (25.0-35.0); MCHC 33.2 g/dL (31.0-37.0); Magnesium 2.2 mg/dL (1.6-2.3); Mean Platelet Volume 9.3; Monocytes # (A) 0.9 k/uL (0-1.0); Monocytes % (A) 9 %; Neutrophils # (A) 7.5 k/uL (1.3-7.7); Neutrophils % (A) 75 %; Non-African American GFR(MDRD) >60 (>60 ml/min/1.73 sqM); Potassium 4.1 mmol/L (3.5-5.1); RBC 2.31 m/uL (4.30-5.90); Sodium 141 mmol/L (137-145); Total Bilirubin 0.6 mg/dL (0.2-1.3); Total Protein 4.3 g/dL (6.3-8.2); WBC (Perox) 10.07
[2016-04-20] MEDS: MILRINONE-D5W PMX 20 MG in DEXTROSE/WATER 1 100ML.BAG IV SCH (04:48)
[2016-04-20 05:06] LABS: Glucose,Whole Blood 138 mg/dL (75-99)
[2016-04-20 05:40] LABS: ABG PCO2 27 mmHg (35-45); ABG PH 7.53 (7.35-7.45); ABG PO2 80 mmHg (83-108)
[2016-04-20 05:41] LABS: ABG HCO3 23 mmol/L (21-25); ABG TCO2 23 mmol/L (19-24)
[2016-04-20 06:12] LABS: Glucose,Whole Blood 142 mg/dL (75-99)
[2016-04-20 07:14] LABS: Glucose,Whole Blood 135 mg/dL (75-99)
--- NOTE | 2016-04-20 07:28 | XR ---
EXAMINATION TYPE: XR chest 1V portable DATE OF EXAM: 04/20/2016 6:48 AM COMPARISON: Yesterday HISTORY: Postop cardiac surgery TECHNIQUE: Single frontal view of the chest is obtained. FINDINGS: Endotracheal tube is in good position. There is a mild pulmonary vascular congestion. Ther e is blunting of the costophrenic angles and more on the right side. There are sternal wires. There a re chest leads. There is a right jugular catheter with the tip over the right ventricle. There are bi lateral chest tubes noted. There is a nasogastric tube. IMPRESSION: Congestive heart failure with pleural effusions and basilar pulmonary consolidation. Maria T st is slightly worse than yesterday. There is increased fluid on the right side.
[2016-04-20] MEDS: ACETYLCYSTEINE 800 MG/4 ML VIAL INHALATION SCH ×4 (07:46→19:36)
[2016-04-20 07:47] LABS: Glucose,Whole Blood 137 mg/dL (75-99)
--- NOTE | 2016-04-20 08:40 | P.PN ---
Progress Note - Text CV Surgery Nursing POD: #2, triple vessel coronary artery bypass grafting using the left internal mammary artery to the left anterior descending coronary artery, a reverse greater saphenous vein graft from the aorta to the early arising posterior descending coronary artery, a reverse greater saphenous vein graft from the aorta to the intramyocardial ramus intermedius artery proximally. 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 Intraoperative transesophageal echocardiogram and Epi-aortic scanning. Endoscopic vein harvesting of the right greater saphenous vein. #2 is Reexploration for postoperative bleeding. Patient remains intubated with mechanical ventilator support, he is sedated on Diprivan drip at 25 mcg/kg/m. He is not following any verbal commands at this time although he does withdrawal from noxious stimuli. Vital Signs: T-max temperature 100.4F. Vital Signs - 24 hr 04/19/16 04/19/16 04/19/16 08:30 08:45 09:00 Temperature Pulse Rate 90 92 86 Respiratory 19 19 Rate O2 Sat by Pulse 100 100 Oximetry 04/19/16 04/19/16 04/19/16 09:30 10:00 10:30 Temperature Pulse Rate 83 78 83 Respiratory 21 20 19 Rate O2 Sat by Pulse 100 100 97 Oximetry 04/19/16 04/19/16 04/19/16 11:00 11:30 12:00 Temperature Pulse Rate 85 82 83 Respiratory 21 20 18 Rate O2 Sat by Pulse 97 97 97 Oximetry 04/19/16 04/19/16 04/19/16 12:30 12:50 13:00 Temperature Pulse Rate 84 90 85 Respiratory 17 18 Rate O2 Sat by Pulse 95 94 L Oximetry 04/19/16 04/19/16 04/19/16 13:05 13:30 14:00 Temperature Pulse Rate 92 82 83 Respiratory 17 18 Rate O2 Sat by Pulse 95 96 Oximetry 04/19/16 04/19/16 04/19/16 14:30 15:00 15:30 Temperature Pulse Rate 93 79 86 Respiratory 14 34 H 17 Rate O2 Sat by Pulse 96 95 97 Oximetry 04/19/16 04/19/16 04/19/16 16:00 16:30 17:00 Temperature Pulse Rate 83 85 86 Respiratory 18 18 18 Rate O2 Sat by Pulse 100 97 98 Oximetry 04/19/16 04/19/16 04/19/16 17:12 17:26 17:30 Temperature Pulse Rate 99 93 90 Respiratory 19 Rate O2 Sat by Pulse 98 Oximetry 04/19/16 04/19/16 04/19/16 18:00 18:30 19:00 Temperature Pulse Rate 88 88 91 Respiratory 18 18 18 Rate O2 Sat by Pulse 96 96 98 Oximetry 04/19/16 04/19/16 04/19/16 19:02 19:30 20:00 Temperature 99.5 F Pulse Rate 88 85 81 Respiratory 18 18 Rate O2 Sat by Pulse 96 96 Oximetry 04/19/16 04/19/16 04/19/16 20:30 21:00 21:30 Temperature 99.7 F H Pulse Rate 82 87 87 Respiratory 18 18 18 Rate O2 Sat by Pulse 98 100 98 Oximetry 04/19/16 04/19/16 04/19/16 21:42 22:00 22:30 Temperature Pulse Rate 79 90 90 Respiratory 18 18 18 Rate O2 Sat by Pulse 97 97 97 Oximetry 04/19/16 04/19/16 04/19/16 23:00 23:20 23:30 Temperature Pulse Rate 92 93 97 Respiratory 18 18 Rate O2 Sat by Pulse 98 97 Oximetry 04/19/16 04/20/16 04/20/16 23:45 00:00 00:30 Temperature 99.7 F H Pulse Rate 90 91 101 H Respiratory 18 16 Rate O2 Sat by Pulse 97 96 Oximetry 04/20/16 04/20/16 04/20/16 01:00 01:30 02:00 Temperature Pulse Rate 92 90 88 Respiratory 19 18 18 Rate O2 Sat by Pulse 95 97 98 Oximetry 04/20/16 04/20/16 04/20/16 02:30 03:00 03:06 Temperature Pulse Rate 97 89 88 Respiratory 18 18 Rate O2 Sat by Pulse 99 96 Oximetry 04/20/16 04/20/16 04/20/16 03:30 03:40 03:52 Temperature Pulse Rate 96 75 86 Respiratory 21 Rate O2 Sat by Pulse 95 Oximetry 04/20/16 04/20/16 04/20/16 04:00 04:30 05:00 Temperature 100.2 F H Pulse Rate 89 91 92 Respiratory 17 16 18 Rate O2 Sat by Pulse 96 96 96 Oximetry 04/20/16 04/20/16 04/20/16 05:30 06:00 06:30 Temperature Pulse Rate 88 93 93 Respiratory 19 18 18 Rate O2 Sat by Pulse 96 95 93 L Oximetry 04/20/16 04/20/16 04/20/16 07:00 07:30 07:57 Temperature Pulse Rate 92 94 92 Respiratory 18 18 Rate O2 Sat by Pulse 95 97 Oximetry ABP, PAP, CO, CI - Last 8 Hours Arterial Blood Pressure 122/47 Arterial Blood Pressure 113/50 Arterial Blood Pressure 95/38 Arterial Blood Pressure 110/45 Arterial Blood Pressure 104/42 Arterial Blood Pressure 116/50 Arterial Blood Pressure 113/47 Arterial Blood Pressure 114/49 Arterial Blood Pressure 109/52 Arterial Blood Pressure 98/44 Arterial Blood Pressure 118/52 Arterial Blood Pressure 111/48 Arterial Blood Pressure 111/51 Arterial Blood Pressure 92/47 Arterial Blood Pressure 104/49 Pulmonary Artery Pressure 34/16 Pulmonary Artery Pressure 35/19 Pulmonary Artery Pressure 32/13 Pulmonary Artery Pressure 28/12 Pulmonary Artery Pressure 32/12 Pulmonary Artery Pressure 31/14 Pulmonary Artery Pressure 32/13 Pulmonary Artery Pressure 32/15 Pulmonary Artery Pressure 35/14 Pulmonary Artery Pressure 36/16 Pulmonary Artery Pressure 32/14 Pulmonary Artery Pressure 33/16 Pulmonary Artery Pressure 29/15 Pulmonary Artery Pressure 26/13 Pulmonary Artery Pressure 29/17 Cardiac Output 6.9 Cardiac Output 6.9 Cardiac Output 6.9 Cardiac Output 6.9 Cardiac Output 6.9 Cardiac Output 7 Cardiac Output 7 Cardiac Output 7 Cardiac Output 7 Cardiac Output 7 Cardiac Output 7 Cardiac Output 7 Cardiac Output 7 Cardiac Output 7 Cardiac Output 7 Labs: Short CBC 04/20/16 Range/Units 04:00 WBC 10.0 (3.8-10.6) k/uL Hgb 6.8 L* (13.0-17.5) gm/dL Hct 20.6 L (39.0-53.0) % Plt Count 95 L (150-450) k/uL Neutrophils # 7.5 (1.3-7.7) k/uL BMP 04/19/16 04/20/16 19:10 04:00 Sodium 141 Potassium 4.0 4.1 Chloride 107 Carbon Dioxide 26 BUN 25 H Creatinine 1.10 Glucose 120 H Calcium 7.9 L Liver Function 04/20/16 Range/Units 04:00 Total Bilirubin 0.6 (0.2-1.3) mg/dL AST 74 H (17-59) U/L ALT 35 (21-72) U/L Alkaline Phosphatase 40 (38-126) U/L Albumin 2.7 L (3.5-5.0) g/dL ABG ABG pH 7.53 (7.35-7.45) H 04/20/16 05:26 ABG pCO2 27 mmHg (35-45) L 04/20/16 05:26 ABG pO2 80 mmHg (83-108) L 04/20/16 05:26 ABG O2 Saturation 97.0 % (94-97) 04/20/16 05:26 PT/INR, D-dimer PT 11.3 sec (9.0-12.0) 04/20/16 04:00 INR 1.1 (<1.1) 04/20/16 04:00 D-Dimer 0.73 mg/L FEU (<0.60) H 04/13/16 10:43 Microbiology 04/17/16 14:28 Urine,Clean Catch Urine Culture - Final 04/15/16 18:00 Nasal Swab Nasal Culture - Final IV Fluids: Lactated Ringer's at 50 mL per hour Propofol drip at 25 mcg/kg/m Regular insulin drip at 4.5 units per hour Primacor drip at 0.35 mcg/kg/m. Cardiac output: 6.9 Cardiac index: 2.9 Pulmonary artery pressures: 30/14 CVP: 8 Lungs: Diminished bilateral bases, essentially clear to bilateral upper lobes. Respirations are unlabored with mechanical ventilator support. Current ventilator settings are as follows: AC 18, TV 650, FiO2 50%, PEEP 8, peak pressures 30, plateau pressures 26. O2 sat: 97% with mechanical ventilator support and FiO2 currently at 50%. Heart: S1S2, irregular rhythm with controlled rate. Negative for murmur, S3 or gallop. Bedside telemetry showing normal sinus rhythm with frequent PACs and occasional PVC, heart rate 94. Sternum stable, chest incision clean with silverlon dressing clean and dry. Heart hugger in place. Right leg incisions clean dry and well approximated no drainage noted. Right calf area DOTTIE drain in place, 10 mL output in the last 24 hours. Knee-high KARON hose and sequential compression devices in place to bilateral lower extremities. Abdomen: Soft, Positive bowel sounds present in all 4 quadrants, OG tube to low continuous wall suction. CBGs: 117-142 mg/dL in the last 24 hours. U/O: Adequate, Nava catheter for accurate I&O. 375 mL output in the last 8 hours. Chest Tubes: Mediastinal chest tubes with positive air leak, remain to low continuous suction -20 cm water. 110 mL output in the last 8 hours, 400 mL output in the last 24 hours. Left pleural chest tube without air leak, remain to low continuous suction -20 cm water. 50 mL output in the last 8 hours, 170 mL output in the last 24 hours. Right pleural chest tube without air leak, remain to low continuous suction -20 cm water. 130 mL output in the last 8 hours, 200 mL output in the last 24 hours. 24 hr Total: Intake & Output 04/18/16 04/19/16 04/20/16 04/21/16 06:59 06:59 06:59 06:59 Intake Total 1060 6393.628 2628.021 74.6 Output Total 2250 7115 1800 145 Balance -1190 -721.372 828.021 -70.4 Weight 119.8 kg 125.8 kg 130 kg Active Medications Generic Name Dose Route Start Last Admin Trade Name Freq PRN Reason Stop Dose Admin Acetaminophen/Hydrocodone Bitart 2 each 04/19/16 14:56 Tryon 5-325 PO Q4HR PRN Severe Pain Acetaminophen/Hydrocodone Bitart 1 each 04/19/16 14:56 Tryon 5-325 PO Q4HR PRN Moderate Pain Acetylcysteine 200 mg 04/19/16 00:00 04/20/16 07:46 Mucomyst INHALATION 200 mg RT-QID ADAM Administration Albuterol/Ipratropium 3 ml 04/18/16 16:00 04/20/16 07:45 Duoneb 0.5 Mg-3 Mg/3 Ml Soln INHALATION 3 ml RT-Q4H ADAM Administration Albuterol/Ipratropium 3 ml 04/19/16 14:59 Duoneb 0.5 Mg-3 Mg/3 Ml Soln INHALATION RT-Q2H PRN Shortness Of Breath Or Wheezing Albuterol/Ipratropium 3 ml 04/19/16 16:00 04/19/16 20:45 Duoneb 0.5 Mg-3 Mg/3 Ml Soln INHALATION Not Given RT-QID [facility] Aspirin 81 mg 04/20/16 09:00 Aspirin PO DAILY [facility] Atorvastatin Calcium 40 mg 04/19/16 09:00 04/19/16 08:21 Lipitor PO 40 mg DAILY ADAM Administration Benzocaine/Menthol 1 each 04/18/16 14:58 Cepacol Lozenge MUCOUS MEM Q2H PRN Sore Throat Bisacodyl 10 mg 04/19/16 14:58 Dulcolax RECTAL DAILY PRN Constipation Clopidogrel Bisulfate 75 mg 04/20/16 09:00 Plavix PO DAILY ADAM Finasteride 5 mg 04/20/16 09:00 Proscar PO DAILY ADAM Heparin Sodium (Porcine) 5,000 unit 04/19/16 16:00 04/20/16 00:49 Heparin SQ 5,000 unit Q8HR ADAM Administration Insulin Human Regular 100 unit 101 mls @ 0 mls/hr 04/18/16 14:30 04/19/16 12: 19 / Sodium Chloride IV 4 units/hr .Q0M ADAM 4.04 mls/hr Protocol Administration Per Protocol Albumin Human 250 ml/ IV 250 mls @ 250 mls/hr 04/18/16 14:51 Solution IVPB 04/20/16 14:52 Q1HR PRN For Volume Clevidipine 25 mg/ IV Solution 50 mls @ 2 mls/hr 04/18/16 14:45 04/19/16 15: 08 IV Not Given .Q24H ADAM Protocol 1 MG/HR Lactated Ringer's 1,000 mls @ 50 mls/hr 04/18/16 15:00 04/19/16 11:33 Lactated Ringers IV 50 mls/hr .Q20H ADAM Administration Milrinone Lactate/Dextrose 20 100 mls @ 0 mls/hr 04/18/16 15:00 04/20/16 04: 48 mg/ IV Solution IV 0.35 mcg/kg/min .Q0M ADAM 12.57 mls/hr Protocol Administration Per Protocol Nitroglycerin/Dextrose 50 mg/ 250 mls @ 1.5 mls/hr 04/18/16 15:00 04/19/16 15 :06 IV Solution IV Not Given .Q24H ADAM 5 MCG/MIN Norepinephrine Bitartrate 16 266 mls @ 0 mls/hr 04/18/16 14:45 04/20/16 05:00 mg/ Sodium Chloride IV 0 mcg/min .Q0M ADAM 0 mls/hr Protocol Titration Titrate Propofol 500 mg/ IV Solution 50 mls @ 0 mls/hr 04/18/16 15:00 04/20/16 05:02 IV 20 mcg/kg/min .Q0M ADAM 14.37 mls/hr Protocol Administration Titrate Vasopressin 20 unit/ Sodium 100 mls @ 9 mls/hr 04/18/16 14:45 04/20/16 00:49 Chloride IV Not Given .Q11H7M ADAM Protocol 0.03 UNITS/MIN Magnesium Hydroxide 2,400 mg 04/19/16 14:58 Milk Of Magnesia PO BID PRN Constipation Metoprolol Tartrate 12.5 mg 04/19/16 09:00 04/19/16 19:14 Lopressor PO 12.5 mg BID ADAM Administration Miscellaneous Information 1 each 04/18/16 14:58 Magnesium Per Protocol MISCELLANE DAILY PRN Per Protocol Protocol Miscellaneous Information 1 each 04/18/16 14:58 Phosphorus Per Protocol MISCELLANE DAILY PRN Per Protocol Protocol Miscellaneous Information 1 each 04/18/16 14:58 Potassium Per Protocol MISCELLANE DAILY PRN Per Protocol Protocol Morphine Sulfate 2 mg 04/18/16 14:51 Morphine Sulfate (Inj) IVP Q2H PRN Severe Pain Ondansetron HCl 4 mg 04/18/16 14:58 Zofran IVP Q6HR PRN Nausea And Vomiting Pantoprazole Sodium 40 mg 04/19/16 09:00 04/19/16 08:21 Protonix IVP 40 mg DAILY ADAM Administration Senna/Docusate Sodium 2 each 04/19/16 21:00 04/19/16 21:01 Senokot-S PO 2 each HS ADAM Administration Sodium Chloride 10 ml 04/18/16 21:00 04/19/16 21:02 Saline Flush IV 10 ml BID ADAM Administration
[2016-04-20 08:58] LABS: Glucose,Whole Blood 128 mg/dL (75-99)
[2016-04-20] MEDS: PANTOPRAZOLE 40 MG/10 ML VIAL IVP SCH (08:58)
[2016-04-20] MEDS: LACTATED RINGERS 1,000 ML IV SCH (08:58)
[2016-04-20] MEDS: ATORVASTATIN 40 MG TAB PO SCH (08:59)
[2016-04-20] MEDS: ASPIRIN 81 MG CHEW PO SCH (08:59)
[2016-04-20] MEDS: CLOPIDOGREL 75 MG TAB PO SCH (08:59)
[2016-04-20] MEDS: METOPROLOL TARTRATE 12.5 MG TAB PO SCH ×2 (08:59→20:58)
[2016-04-20] MEDS ORDERED: FINASTERIDE 5 MG TAB PO SCH (09:00)
[2016-04-20] MEDS ORDERED: FUROSEMIDE 10 MG/ML 2 ML VIAL IV ONE (09:21)
[2016-04-20 10:12] LABS: Glucose,Whole Blood 128 mg/dL (75-99)
[2016-04-20] MEDS ORDERED: CISATRACURIUM 2 MG/ML 5 ML VIAL IV ONE (10:35)
[2016-04-20] MEDS ORDERED: IV VANCOMYCIN PER PHARMACY 1 EACH MISC MISCELLANE PRN (10:45)
[2016-04-20 11:04] LABS: Glucose,Whole Blood 132 mg/dL (75-99)
[2016-04-20] MEDS ORDERED: VANCOMYCIN 1,750 MG in SODIUM CHLORIDE 0.9% 250 ML IVPB ONE (11:15)
[2016-04-20] MEDS: PIPERACILLIN-TAZOBACTAM 3.375 GM in DEXTROSE/WATER 1 50ML.BAG IVPB SCH ×2 (11:26→16:59)
[2016-04-20 12:30] LABS: Glucose,Whole Blood 133 mg/dL (75-99)
--- NOTE | 2016-04-20 13:08 | PN ---
Mr. Mccracken is a 76-year-old gentleman status post aortic valve replacement and bypass surgery. He is still on a ventilator oxygenating somewhat less. There is a concern that he may have some mucous plugs. He remains in sinus rhythm. Hemodynamically quite stable. S1, S2 heard normally. Short systolic murmur noted. Pericardial rub is audible. Lungs reveal diminished air entry both lung coffman, only upper zones are well-aerated. Rest of physical examination is really unchanged. The patient is still on ventilator and sedated. Cardiac-sequeira I would recommend that we continue current medical regimen. Await input from pulmonology for possible bronchoscopy for mucous plugs. Only after this, extubation should be considered.
[2016-04-20] MEDS: HYDROcodone/APAP 5-325MG 1 EACH TAB PO PRN ×2 (13:50→20:58)
--- NOTE | 2016-04-20 13:51 | P.PN ---
Subjective Principal diagnosis: Coronary artery disease, triple vessel, severe left ventricular dysfunction This 76-year-old male patient , post 3 vessel bypass surgery including PHAM to LAD saphenous vein graft to diagonal and ramus branches and aortic valve replacement was currently back in the intensive care unit and the patient is postop day 1. Note that the patient was taken back to the operating room after he arrived the ICU. The patient was having bleeding from his mediastinal chest tubes. Further examination was done and the bleeding site was identified and the local hemostasis was achieved and following that the patient was brought back to the intensive care unit. Overnight, the patient remains on a mechanical ventilator and he remains sedated with Diprivan. He was gradually taken off the vasopressin drip and the Gal-Synephrine drip and both are discontinued. Currently is on 8 mics of norepinephrine infusion and Primacor. He is hemodynamically stable. He remains on a mechanical ventilator and his series of chest x-rays that was done postop showed a partial atelectasis of the right upper lobe which subsequently improved. Morning's chest x-ray showed adequate expansion of the right upper lobe area and there is probably some small better pleural effusion. ET tube is in a good location. The patient has a Mcloud-Candace catheter in place. There aren't pleural and mediastinal chest tubes are all in place. On the mechanical ventilator, the patient is on a assist-control mode at the rate of 20, tidal volume of 650, FiO2 of 80% and PEEP of 12. He is having some air leak within the mediastinal chest tube. Output however has improved and there is evidence of any acute bleeding. Hemoglobin is stable for now. On 04/20/2016 the patient is being seen in follow-up. The patient is still intubated on mechanical ventilator. He is an assist-control mode with a tidal volume that was dropped down to 550 and the rate of 20 with a PEEP of 8 and FiO2 of 50%. Blood gases from earlier this morning showed a component of respiratory alkalosis with a pH of 7.53 and a pCO2 of 27 and pO2 of 80. The patient demonstrated right lower lobe atelectasis on today's chest x-ray. It acutely remains in a good location. All of the chest tubes are still in place. The patient is still having air leak for the mediastinal tube. Total amount of output from old the chest tubes have been 150 mL over the past 8 hours. Hemoglobin has dropped down to 6.8 and the patient is receiving a unit of packed RBC. Otherwise no chills. No fever. No hypotension. No leukocytosis. Based on the x-ray findings, I performed a bronchoscopy on this patient and copious amount of purulent discharge secretions were identified in the right lower lobe and the bronchus intermedius. Therapeutic airway suctioning was done. The pertinent rest or secretions were sent out for cultures. Therapeutic airway washing was done. The patient was started on broad-spectrum antibiotics and he was covered with a combination of Zosyn and vancomycin. Hemodynamically, the patient was taken off the pressors. He is off the norepinephrine infusion. He is still on Primacor. He has adequate urine output and adequate cardiac output at this point. Objective - Vital Signs Vital signs: Vital Signs Temp 100.9 F H 04/20/16 10:04 Pulse 97 04/20/16 11:14 Resp 26 H 04/20/16 10:30 BP 113/45 04/20/16 10:04 Pulse Ox 100 04/20/16 10:30 Intake & Output 04/19/16 04/20/16 04/20/16 18:59 06:59 18:59 Intake Total 8776.836 6086.066 74.6 Output Total 920 880 145 Balance 371.955 456.066 -70.4 Weight 125.8 kg 130 kg 130 kg Intake: IV 968 933.3 74.6 .9NS Cardiac Output 160 60 0.9NS Pressure Bag 108 108 9 ACETAMINOPHEN IV (For NPO 100 ) 1,000 mg In Empty Bag 1 bag @ 400 mls/hr IVPB Q6HR ADAM Rx#:[id number] Insulin Regular 100 unit 34.5 4.5 In Sodium Chloride 0.9% 100 ml @ Per Protocol IV .Q0M ADAM Rx#:[id number] Lactated Ringers 1,000 ml 600 260 30 @ 50 mls/hr IV .Q20H ADAM Rx#:[id number] Norepinephrine 16 mg In 29.1 Sodium Chloride 0.9% 250 ml @ Titrate IV .Q0M ADAM Rx#:[id number] Primacor 138.6 12.6 Propofol 500 mg In Empty 203.1 18.5 Bag 1 bag @ Titrate IV . Q0M ADAM Rx#:[id number] ceFAZolin 3 gm In Sodium 100 Chloride 0.9% 100 ml @ 100 mls/hr IVPB Q8HR ADAM Rx#:[id number] Intake, IV Titration 323.955 402.766 Amount Insulin Regular 100 unit 24.656 In Sodium Chloride 0.9% 100 ml @ Per Protocol IV .Q0M ADAM Rx#:[id number] Milrinone-D5w Pmx 20 mg 100.000 200 In Dextrose/Water 1 100ml .bag @ Per Protocol IV . Q0M ADAM Rx#:[id number] Norepinephrine 16 mg In 99.299 40.551 Sodium Chloride 0.9% 250 ml @ Titrate IV .Q0M ADAM Rx#:[id number] Propofol 500 mg In Empty 100.000 162.215 Bag 1 bag @ Titrate IV . Q0M ADAM Rx#:[id number] Oral 0 Blood Product 0 Rc As-1 Unit 0 [id number] Output: Chest Tube Drainage 350 340 70 Left Pleural 80 60 30 Mediastinal 210 160 20 Right Pleural 60 120 20 Drainage 0 Right Calf 0 Urine 570 540 75 Other: Voiding Method Indwelling Catheter Indwelling Catheter Indwelling Catheter # Voids 1 ABP, PAP, CO, CI - Last Documented Arterial Blood Pressure 119/44 Pulmonary Artery Pressure 29/13 Cardiac Output 6.4 Cardiac Index 2.7 - Exam Intubated on the mechanical ventilator., Comfortable sedated with Diprivan.Head exam was generally normal. There was no scleral icterus or corneal arcus. Mucous membranes were moist. Neck is supple there is a right Mcloud-Candace catheter in place. No goiter or neck masses. Lungs are diminished bilaterally otherwise there is some few scattered expiratory wheezes. Heart sounds are regular, positive S1-S2 along with that there is a cardiac rub. Chest tubes are all in good location.Abdominal exam revealed normal bowel sounds. The abdomen was soft, non-tender, and without masses, organomegaly, or appreciable enlargement of the abdominal aorta. Extremities showed diminished pulses and there is no cyanosis or clubbing at this point. Neurologically the patient is sedated. - Labs CBC & Chem 7: 04/20/16 04:00 04/20/16 04:00 Labs: Abnormal Lab Results - Last 24 Hours (Table) 04/16/16 04/19/16 04/19/16 Range/Units 04:58 14:04 15:04 RBC (4.30-5.90) m/uL Hgb (13.0-17.5) gm/dL Hct (39.0-53.0) % Plt Count (150-450) k/uL ABG pH (7.35-7.45) ABG pCO2 (35-45) mmHg ABG pO2 (83-108) mmHg ABG Total CO2 (19-24) mmol/L ABG O2 Saturation (94-97) % BUN (9-20) mg/dL Glucose (74-99) mg/dL POC Glucose (mg/dL) 127 H 131 H (75-99) mg/dL Calcium (8.4-10.2) mg/dL AST (17-59) U/L Total Protein (6.3-8.2) g/dL Albumin (3.5-5.0) g/dL Crossmatch See Detail 04/19/16 04/19/16 04/19/16 Range/Units 16:15 16:54 16:54 RBC (4.30-5.90) m/uL Hgb (13.0-17.5) gm/dL Hct (39.0-53.0) % Plt Count (150-450) k/uL ABG pH 7.49 H (7.35-7.45) ABG pCO2 31 L (35-45) mmHg ABG pO2 (83-108) mmHg ABG Total CO2 25 H (19-24) mmol/L ABG O2 Saturation 98.0 H (94-97) % BUN (9-20) mg/dL Glucose (74-99) mg/dL POC Glucose (mg/dL) 123 H 126 H (75-99) mg/dL Calcium (8.4-10.2) mg/dL AST (17-59) U/L Total Protein (6.3-8.2) g/dL Albumin (3.5-5.0) g/dL Crossmatch 04/19/16 04/19/16 04/19/16 Range/Units 18:01 19:07 20:24 RBC (4.30-5.90) m/uL Hgb (13.0-17.5) gm/dL Hct (39.0-53.0) % Plt Count (150-450) k/uL ABG pH (7.35-7.45) ABG pCO2 (35-45) mmHg ABG pO2 (83-108) mmHg ABG Total CO2 (19-24) mmol/L ABG O2 Saturation (94-97) % BUN (9-20) mg/dL Glucose (74-99) mg/dL POC Glucose (mg/dL) 120 H 117 H 104 H (75-99) mg/dL Calcium (8.4-10.2) mg/dL AST (17-59) U/L Total Protein (6.3-8.2) g/dL Albumin (3.5-5.0) g/dL Crossmatch 04/19/16 04/19/16 04/19/16 Range/Units 20:56 21:57 23:09 RBC (4.30-5.90) m/uL Hgb (13.0-17.5) gm/dL Hct (39.0-53.0) % Plt Count (150-450) k/uL ABG pH (7.35-7.45) ABG pCO2 (35-45) mmHg ABG pO2 (83-108) mmHg ABG Total CO2 (19-24) mmol/L ABG O2 Saturation (94-97) % BUN (9-20) mg/dL Glucose (74-99) mg/dL POC Glucose (mg/dL) 124 H 108 H 124 H (75-99) mg/dL Calcium (8.4-10.2) mg/dL AST (17-59) U/L Total Protein (6.3-8.2) g/dL Albumin (3.5-5.0) g/dL Crossmatch 04/20/16 04/20/16 04/20/16 Range/Units 00:03 00:51 02:02 RBC (4.30-5.90) m/uL Hgb (13.0-17.5) gm/dL Hct (39.0-53.0) % Plt Count (150-450) k/uL ABG pH (7.35-7.45) ABG pCO2 (35-45) mmHg ABG pO2 (83-108) mmHg ABG Total CO2 (19-24) mmol/L ABG O2 Saturation (94-97) % BUN (9-20) mg/dL Glucose (74-99) mg/dL POC Glucose (mg/dL) 131 H 127 H 129 H (75-99) mg/dL Calcium (8.4-10.2) mg/dL AST (17-59) U/L Total Protein (6.3-8.2) g/dL Albumin (3.5-5.0) g/dL Crossmatch 04/20/16 04/20/16 04/20/16 Range/Units 02:53 03:54 04:00 RBC (4.30-5.90) m/uL Hgb (13.0-17.5) gm/dL Hct (39.0-53.0) % Plt Count (150-450) k/uL ABG pH (7.35-7.45) ABG pCO2 (35-45) mmHg ABG pO2 (83-108) mmHg ABG Total CO2 (19-24) mmol/L ABG O2 Saturation (94-97) % BUN 25 H (9-20) mg/dL Glucose 120 H (74-99) mg/dL POC Glucose (mg/dL) 130 H 142 H (75-99) mg/dL Calcium 7.9 L (8.4-10.2) mg/dL AST 74 H (17-59) U/L Total Protein 4.3 L (6.3-8.2) g/dL Albumin 2.7 L (3.5-5.0) g/dL Crossmatch 04/20/16 04/20/16 04/20/16 Range/Units 04:00 05:04 05:26 RBC 2.31 L (4.30-5.90) m/uL Hgb 6.8 L* (13.0-17.5) gm/dL Hct 20.6 L (39.0-53.0) % Plt Count 95 L (150-450) k/uL ABG pH 7.53 H (7.35-7.45) ABG pCO2 27 L (35-45) mmHg ABG pO2 80 L (83-108) mmHg ABG Total CO2 (19-24) mmol/L ABG O2 Saturation (94-97) % BUN (9-20) mg/dL Glucose (74-99) mg/dL POC Glucose (mg/dL) 138 H (75-99) mg/dL Calcium (8.4-10.2) mg/dL AST (17-59) U/L Total Protein (6.3-8.2) g/dL Albumin (3.5-5.0) g/dL Crossmatch 04/20/16 04/20/16 04/20/16 Range/Units 06:09 07:13 07:44 RBC (4.30-5.90) m/uL Hgb (13.0-17.5) gm/dL Hct (39.0-53.0) % Plt Count (150-450) k/uL ABG pH (7.35-7.45) ABG pCO2 (35-45) mmHg ABG pO2 (83-108) mmHg ABG Total CO2 (19-24) mmol/L ABG O2 Saturation (94-97) % BUN (9-20) mg/dL Glucose (74-99) mg/dL POC Glucose (mg/dL) 142 H 135 H 137 H (75-99) mg/dL Calcium (8.4-10.2) mg/dL AST (17-59) U/L Total Protein (6.3-8.2) g/dL Albumin (3.5-5.0) g/dL Crossmatch 04/20/16 04/20/16 04/20/16 Range/Units 07:45 08:56 10:09 RBC (4.30-5.90) m/uL Hgb (13.0-17.5) gm/dL Hct (39.0-53.0) % Plt Count (150-450) k/uL ABG pH (7.35-7.45) ABG pCO2 (35-45) mmHg ABG pO2 (83-108) mmHg ABG Total CO2 (19-24) mmol/L ABG O2 Saturation (94-97) % BUN (9-20) mg/dL Glucose (74-99) mg/dL POC Glucose (mg/dL) 128 H 128 H (75-99) mg/dL Calcium (8.4-10.2) mg/dL AST (17-59) U/L Total Protein (6.3-8.2) g/dL Albumin (3.5-5.0) g/dL Crossmatch See Detail 04/20/16 04/20/16 Range/Units 11:01 12:28 RBC (4.30-5.90) m/uL Hgb (13.0-17.5) gm/dL Hct (39.0-53.0) % Plt Count (150-450) k/uL ABG pH (7.35-7.45) ABG pCO2 (35-45) mmHg ABG pO2 (83-108) mmHg ABG Total CO2 (19-24) mmol/L ABG O2 Saturation (94-97) % BUN (9-20) mg/dL Glucose (74-99) mg/dL POC Glucose (mg/dL) 132 H 133 H (75-99) mg/dL Calcium (8.4-10.2) mg/dL AST (17-59) U/L Total Protein (6.3-8.2) g/dL Albumin (3.5-5.0) g/dL Crossmatch Assessment and Plan Plan: Assessment 1 shortness of breath essentially of a cardiac in nature. 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 CTA of the chest shows changes consistent with CHF with small bilateral pleural effusion and groundglass pulmonary infiltrates consistent with interstitial edema/CHF. On 04/18/2016, the patient is being seen postop. The patient underwent three- vessel bypass surgery and aortic valve replacement. Currently intubated on mechanical ventilator. Patient is on a multitude of pressors including a combination of norepinephrine infusion, vasopressin, Gal-Synephrine and Primacor. Most recent cardiac index at 2.7. Chest tubes are all in place. On 04/19/2016, the patient is being seen in follow-up. The patient was taken to the operating room force postoperative bleeding. The patient was taken back to the operating room and the patient was found to have bleeding from the ventricular pacing wire site in the right ventricle. He was given. He dad a resternotomy after the control of bleeding and currently is still in the process of being stabilized and weaned off the mechanical ventilator. During the process, he had a partial right upper lobe collapse which seems to be expanded on today's chest x-ray. He remains on a high degree of PEEP at 12 and he is having some minor air leak through the based on the chest tube. Lungs are well expanded and there is no evidence of pneumothorax. Hemodynamically better on lower doses of norepinephrine infusion and Primacor and the patient is currently off vasopressin and Gal-Synephrine. Sedated on a mechanical ventilator. Hemoglobin is stable in addition. On 04/20/2016 the patient is suspected to have a right lower lobe pneumonia. Morning chest x-ray showed a right lower lobe atelectasis and based on that a bronchoscopy was done and there was copious amount of respiratory secretions that was purulent of buying the bronchus intermedius and the right lower lobe. Therapeutic airway suctioning was done. Bronchial washing was obtained. Samples were sent for cultures and the patient was started on a broad-spectrum antibiotics and currently is on a combination of Zosyn and vancomycin. 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 8 osteoarthritis 9 acute kidney injury, improved 10 obesity 11 postoperative anemia the patient was given a unit of packed RBC 4 hemoglobin of 6.8 Plan Continue vent support. May be able to wean down the PEEP further if the patient 's oxidation improves following the bronchoscope and a therapeutic airway suctioning. Initiate antibiotic therapy. Monitored hemodynamics. Keep the chest tubes in place. Monitor the output from the chest tube. Keep the patient sedated for now. May initiate tube feeds if no success extubation with the next 24 hours. We'll continue to follow. This evaluation was done and 35 minutes excluding time to do any procedures. Time with Patient: Greater than 30
[2016-04-20 13:53] LABS: Glucose,Whole Blood 124 mg/dL (75-99)
[2016-04-20 15:49] LABS: Glucose,Whole Blood 117 mg/dL (75-99)
[2016-04-20] MEDS: INSULIN REGULAR 100 UNIT in SODIUM CHLORIDE 0.9% 100 ML IV SCH (16:59)
[2016-04-20] MEDS: NITROGLYCERIN-D5W PMX 50 MG in DEXTROSE/WATER 1 250ML.BAG IV SCH (16:59)
[2016-04-20] MEDS: CLEVIDIPINE BUTYRATE 25 MG in EMPTY BAG 1 BAG IV SCH (17:04)
--- NOTE | 2016-04-20 17:05 | P.PN ---
Subjective Principal diagnosis: Coronary artery disease, triple vessel, severe left ventricular dysfunction 76-year-old gentleman is admitted to the hospital with chest pain, patient was noted to have an and STEMI. Patient underwent a triple-vessel CABG and aortic valve replacement. Patient had be taken back to the or for re exploration of cardiac wall breathing. Patient is currently on pressor support. Patient is sedated and intubated and apparently was febrile overnight. Patient underwent a bedside bronchoscopy this morning. Patient is currently on empiric coverage with antibodies. Patient's ABG this morning was alkalotic Patient required to be restarted on vasopressor support. Patient's urine output is borderline. Objective - Vital Signs Vital signs: Vital Signs Temp 101.8 F H 04/20/16 12:15 Pulse 96 04/20/16 16:28 Resp 31 H 04/20/16 14:00 BP 98/45 04/20/16 12:15 Pulse Ox 92 L 04/20/16 14:00 Intake & Output 04/19/16 04/20/16 04/20/16 18:59 06:59 18:59 Intake Total 8271.022 0481.066 1271.8 Output Total 920 880 861 Balance 371.955 456.066 410.8 Weight 125.8 kg 130 kg 130 kg Intake: IV 968 933.3 651.8 .9NS Cardiac Output 160 60 60 0.9NS Pressure Bag 108 108 72 ACETAMINOPHEN IV (For NPO 100 ) 1,000 mg In Empty Bag 1 bag @ 400 mls/hr IVPB Q6HR ADAM Rx#:[id number] Insulin Regular 100 unit 34.5 31.0 In Sodium Chloride 0.9% 100 ml @ Per Protocol IV .Q0M ADAM Rx#:[id number] Lactated Ringers 1,000 ml 600 260 240 @ 50 mls/hr IV .Q20H ADAM Rx#:[id number] Norepinephrine 16 mg In 29.1 Sodium Chloride 0.9% 250 ml @ Titrate IV .Q0M ADAM Rx#:[id number] Primacor 138.6 100.8 Propofol 500 mg In Empty 203.1 148.0 Bag 1 bag @ Titrate IV . Q0M ADAM Rx#:[id number] ceFAZolin 3 gm In Sodium 100 Chloride 0.9% 100 ml @ 100 mls/hr IVPB Q8HR ADAM Rx#:[id number] Intake, IV Titration 323.955 402.766 Amount Insulin Regular 100 unit 24.656 In Sodium Chloride 0.9% 100 ml @ Per Protocol IV .Q0M ADAM Rx#:[id number] Milrinone-D5w Pmx 20 mg 100.000 200 In Dextrose/Water 1 100ml .bag @ Per Protocol IV . Q0M ADAM Rx#:[id number] Norepinephrine 16 mg In 99.299 40.551 Sodium Chloride 0.9% 250 ml @ Titrate IV .Q0M ADAM Rx#:[id number] Propofol 500 mg In Empty 100.000 162.215 Bag 1 bag @ Titrate IV . Q0M ADAM Rx#:[id number] Oral 0 Blood Product 620 Rc As-1 Unit 310 [id number] Output: Chest Tube Drainage 350 340 190 Left Pleural 80 60 40 Mediastinal 210 160 70 Right Pleural 60 120 80 Drainage 0 Right Calf 0 Urine 570 540 671 Other: Voiding Method Indwelling Catheter Indwelling Catheter Indwelling Catheter # Voids 1 ABP, PAP, CO, CI - Last Documented Arterial Blood Pressure 100/44 Pulmonary Artery Pressure 31/15 Cardiac Output 5.8 Cardiac Index 2.5 - Exam Gen. appearance intubated and sedated Lungs diminished breath sounds Heart no murmurs appreciated S1 and S2 heart Abdomen is soft nontender organomegaly Lower extremity no edema appreciated Neurologically deferred due to as patient is sedated. - Labs CBC & Chem 7: 04/20/16 04:00 04/20/16 04:00 Labs: Abnormal Lab Results - Last 24 Hours (Table) 04/16/16 04/19/16 04/19/16 Range/Units 04:58 16:54 16:54 RBC (4.30-5.90) m/uL Hgb (13.0-17.5) gm/dL Hct (39.0-53.0) % Plt Count (150-450) k/uL ABG pH 7.49 H (7.35-7.45) ABG pCO2 31 L (35-45) mmHg ABG pO2 (83-108) mmHg ABG Total CO2 25 H (19-24) mmol/L ABG O2 Saturation 98.0 H (94-97) % BUN (9-20) mg/dL Glucose (74-99) mg/dL POC Glucose (mg/dL) 126 H (75-99) mg/dL Calcium (8.4-10.2) mg/dL AST (17-59) U/L Total Protein (6.3-8.2) g/dL Albumin (3.5-5.0) g/dL Crossmatch See Detail 04/19/16 04/19/16 04/19/16 Range/Units 18:01 19:07 20:24 RBC (4.30-5.90) m/uL Hgb (13.0-17.5) gm/dL Hct (39.0-53.0) % Plt Count (150-450) k/uL ABG pH (7.35-7.45) ABG pCO2 (35-45) mmHg ABG pO2 (83-108) mmHg ABG Total CO2 (19-24) mmol/L ABG O2 Saturation (94-97) % BUN (9-20) mg/dL Glucose (74-99) mg/dL POC Glucose (mg/dL) 120 H 117 H 104 H (75-99) mg/dL Calcium (8.4-10.2) mg/dL AST (17-59) U/L Total Protein (6.3-8.2) g/dL Albumin (3.5-5.0) g/dL Crossmatch 04/19/16 04/19/16 04/19/16 Range/Units 20:56 21:57 23:09 RBC (4.30-5.90) m/uL Hgb (13.0-17.5) gm/dL Hct (39.0-53.0) % Plt Count (150-450) k/uL ABG pH (7.35-7.45) ABG pCO2 (35-45) mmHg ABG pO2 (83-108) mmHg ABG Total CO2 (19-24) mmol/L ABG O2 Saturation (94-97) % BUN (9-20) mg/dL Glucose (74-99) mg/dL POC Glucose (mg/dL) 124 H 108 H 124 H (75-99) mg/dL Calcium (8.4-10.2) mg/dL AST (17-59) U/L Total Protein (6.3-8.2) g/dL Albumin (3.5-5.0) g/dL Crossmatch 04/20/16 04/20/16 04/20/16 Range/Units 00:03 00:51 02:02 RBC (4.30-5.90) m/uL Hgb (13.0-17.5) gm/dL Hct (39.0-53.0) % Plt Count (150-450) k/uL ABG pH (7.35-7.45) ABG pCO2 (35-45) mmHg ABG pO2 (83-108) mmHg ABG Total CO2 (19-24) mmol/L ABG O2 Saturation (94-97) % BUN (9-20) mg/dL Glucose (74-99) mg/dL POC Glucose (mg/dL) 131 H 127 H 129 H (75-99) mg/dL Calcium (8.4-10.2) mg/dL AST (17-59) U/L Total Protein (6.3-8.2) g/dL Albumin (3.5-5.0) g/dL Crossmatch 04/20/16 04/20/16 04/20/16 Range/Units 02:53 03:54 04:00 RBC (4.30-5.90) m/uL Hgb (13.0-17.5) gm/dL Hct (39.0-53.0) % Plt Count (150-450) k/uL ABG pH (7.35-7.45) ABG pCO2 (35-45) mmHg ABG pO2 (83-108) mmHg ABG Total CO2 (19-24) mmol/L ABG O2 Saturation (94-97) % BUN 25 H (9-20) mg/dL Glucose 120 H (74-99) mg/dL POC Glucose (mg/dL) 130 H 142 H (75-99) mg/dL Calcium 7.9 L (8.4-10.2) mg/dL AST 74 H (17-59) U/L Total Protein 4.3 L (6.3-8.2) g/dL Albumin 2.7 L (3.5-5.0) g/dL Crossmatch 04/20/16 04/20/16 04/20/16 Range/Units 04:00 05:04 05:26 RBC 2.31 L (4.30-5.90) m/uL Hgb 6.8 L* (13.0-17.5) gm/dL Hct 20.6 L (39.0-53.0) % Plt Count 95 L (150-450) k/uL ABG pH 7.53 H (7.35-7.45) ABG pCO2 27 L (35-45) mmHg ABG pO2 80 L (83-108) mmHg ABG Total CO2 (19-24) mmol/L ABG O2 Saturation (94-97) % BUN (9-20) mg/dL Glucose (74-99) mg/dL POC Glucose (mg/dL) 138 H (75-99) mg/dL Calcium (8.4-10.2) mg/dL AST (17-59) U/L Total Protein (6.3-8.2) g/dL Albumin (3.5-5.0) g/dL Crossmatch 04/20/16 04/20/16 04/20/16 Range/Units 06:09 07:13 07:44 RBC (4.30-5.90) m/uL Hgb (13.0-17.5) gm/dL Hct (39.0-53.0) % Plt Count (150-450) k/uL ABG pH (7.35-7.45) ABG pCO2 (35-45) mmHg ABG pO2 (83-108) mmHg ABG Total CO2 (19-24) mmol/L ABG O2 Saturation (94-97) % BUN (9-20) mg/dL Glucose (74-99) mg/dL POC Glucose (mg/dL) 142 H 135 H 137 H (75-99) mg/dL Calcium (8.4-10.2) mg/dL AST (17-59) U/L Total Protein (6.3-8.2) g/dL Albumin (3.5-5.0) g/dL Crossmatch 04/20/16 04/20/16 04/20/16 Range/Units 07:45 08:56 10:09 RBC (4.30-5.90) m/uL Hgb (13.0-17.5) gm/dL Hct (39.0-53.0) % Plt Count (150-450) k/uL ABG pH (7.35-7.45) ABG pCO2 (35-45) mmHg ABG pO2 (83-108) mmHg ABG Total CO2 (19-24) mmol/L ABG O2 Saturation (94-97) % BUN (9-20) mg/dL Glucose (74-99) mg/dL POC Glucose (mg/dL) 128 H 128 H (75-99) mg/dL Calcium (8.4-10.2) mg/dL AST (17-59) U/L Total Protein (6.3-8.2) g/dL Albumin (3.5-5.0) g/dL Crossmatch See Detail 04/20/16 04/20/16 04/20/16 Range/Units 11:01 12:28 13:47 RBC (4.30-5.90) m/uL Hgb (13.0-17.5) gm/dL Hct (39.0-53.0) % Plt Count (150-450) k/uL ABG pH (7.35-7.45) ABG pCO2 (35-45) mmHg ABG pO2 (83-108) mmHg ABG Total CO2 (19-24) mmol/L ABG O2 Saturation (94-97) % BUN (9-20) mg/dL Glucose (74-99) mg/dL POC Glucose (mg/dL) 132 H 133 H 124 H (75-99) mg/dL Calcium (8.4-10.2) mg/dL AST (17-59) U/L Total Protein (6.3-8.2) g/dL Albumin (3.5-5.0) g/dL Crossmatch 04/20/16 Range/Units 15:46 RBC (4.30-5.90) m/uL Hgb (13.0-17.5) gm/dL Hct (39.0-53.0) % Plt Count (150-450) k/uL ABG pH (7.35-7.45) ABG pCO2 (35-45) mmHg ABG pO2 (83-108) mmHg ABG Total CO2 (19-24) mmol/L ABG O2 Saturation (94-97) % BUN (9-20) mg/dL Glucose (74-99) mg/dL POC Glucose (mg/dL) 117 H (75-99) mg/dL Calcium (8.4-10.2) mg/dL AST (17-59) U/L Total Protein (6.3-8.2) g/dL Albumin (3.5-5.0) g/dL Crossmatch Assessment and Plan Plan: #1 acute hypoxic respiratory failure as expected from my recent cardiac surgery. #2 shock as expected from recent cardiac surgery #3 CAD #4 congestive heart failure with a preoperative ejection fraction of 20-25% #5 COPD #6 osteoporosis #7 obesity #8 acute kidney injury which is improved. #9 questionable right atrial thrombus on the echocardiogram initially #10 sepsis Plan Into Await bronchoscopy guided respiratory secretions were done and sent to cover biology. Continue antibiotics to cover empirically. Patient is critically ill. Continue vasopressor support. May need a repeat ABG. Chest tubes in place. Patient is currently on wine control ventilation with a rate of 16 and tidal volume of 650, FiO2 50% and PEEP of 8 cm water. Pulmonary hygiene to be maintained.
[2016-04-20 18:18] LABS: Glucose,Whole Blood 121 mg/dL (75-99)
[2016-04-20 20:11] LABS: Glucose,Whole Blood 125 mg/dL (75-99)
[2016-04-20 20:37] LABS: Ionized Calcium 4.7 mg/dL (4.5-5.3)
[2016-04-20 20:48] LABS: Anion Gap 8 mmol/L; Blood Urea Nitrogen 26 mg/dL (9-20); Calcium 7.7 mg/dL (8.4-10.2); Carbon Dioxide 26 mmol/L (22-30); Chloride 107 mmol/L (98-107); Glucose 112 mg/dL (74-99); Magnesium 2.2 mg/dL (1.6-2.3); Non-African American GFR(MDRD) >60 (>60 ml/min/1.73 sqM); Phosphorous 2.8 mg/dL (2.5-4.5); Sodium 141 mmol/L (137-145)
[2016-04-20] MEDS: SENNOSIDES-DOCUSATE SODIUM 1 EACH TAB PO SCH (20:59)
[2016-04-20] MEDS: VANCOMYCIN 2,000 MG in SODIUM CHLORIDE 0.9% 500 ML IVPB SCH (20:59)
[2016-04-20] MEDS: NOREPINEPHRINE 16 MG in SODIUM CHLORIDE 0.9% 250 ML IV SCH (20:59)
[2016-04-20 22:12] LABS: Glucose,Whole Blood 111 mg/dL (75-99)
[2016-04-20] MEDS: CHLORHEXIDINE GLUCONATE 15 ML CUP MUCOUS MEM SCH (23:18)
[2016-04-20 23:22] LABS: Glucose,Whole Blood 121 mg/dL (75-99)
[2016-04-21] LABS: Glucose,Whole Blood 124 mg/dL (75-99)
[2016-04-21] MEDS: HEPARIN SODIUM,PORCINE 5,000 UNIT/ML 1 ML VIAL SQ SCH ×3 (00:01→15:34)
[2016-04-21] MEDS: PIPERACILLIN-TAZOBACTAM 3.375 GM in DEXTROSE/WATER 1 50ML.BAG IVPB SCH ×3 (00:01→15:54)
[2016-04-21] MEDS: SODIUM CHLORIDE 0.9% 99 ML with VASOPRESSIN 20 UNIT IV SCH ×6 (00:02→20:06)
[2016-04-21] MEDS: MILRINONE-D5W PMX 20 MG in DEXTROSE/WATER 1 100ML.BAG IV SCH ×2 (00:02→15:39)
[2016-04-21 02:37] LABS: Glucose,Whole Blood 118 mg/dL (75-99)
[2016-04-21] MEDS: PROPOFOL 500 MG in EMPTY BAG 1 BAG IV SCH ×5 (02:50→20:07)
[2016-04-21] MEDS: IPRATROPIUM-ALBUTEROL 3 ML NEB INHALATION SCH ×6 (03:13→23:28)
[2016-04-21] MEDS: HYDROcodone/APAP 5-325MG 1 EACH TAB PO PRN ×2 (04:10→10:25)
[2016-04-21 04:26] LABS: Glucose,Whole Blood 108 mg/dL (75-99)
[2016-04-21 04:52] LABS: Basophils % (A) 0 %; CH 30.3; CHCM 33.7; Eosinophils # (A) 0.1 k/uL (0-0.7); Eosinophils % (A) 1 %; HCT 20.5 % (39.0-53.0); HDW 2.97; Luc # (Auto) 0.21; Luc % (Auto) 2; Lymphocytes # (A) 1.5 k/uL (1.0-4.8); Lymphocytes % (A) 15 %; MCHC 33.2 g/dL (31.0-37.0); MCV 90.3 fL (80.0-100.0); Monocytes # (A) 0.7 k/uL (0-1.0); Monocytes % (A) 7 %; Neutrophils # (A) 7.5 k/uL (1.3-7.7); Neutrophils % (A) 75 %; RBC 2.28 m/uL (4.30-5.90); RDW 14.8 % (11.5-15.5); WBC 9.9 k/uL (3.8-10.6); WBC (Perox) 10.52
[2016-04-21 04:58] LABS: HGB 6.8 gm/dL (13.0-17.5)
[2016-04-21 05:10] LABS: Glucose,Whole Blood 116 mg/dL (75-99)
[2016-04-21 05:17] LABS: Ionized Calcium 4.9 mg/dL (4.5-5.3)
[2016-04-21 05:17] LABS: ABG Base Excess -0.2 mmol/L; ABG HCO3 24 mmol/L (21-25); ABG PCO2 37 mmHg (35-45); ABG PH 7.42 (7.35-7.45); ABG PO2 82 mmHg (83-108); ABG TCO2 25 mmol/L (19-24)
[2016-04-21 05:25] LABS: ALT 35 U/L (21-72); AST 48 U/L (17-59); Alkaline Phosphatase 50 U/L (38-126); Anion Gap 7 mmol/L; Blood Urea Nitrogen 26 mg/dL (9-20); Calcium 7.6 mg/dL (8.4-10.2); Carbon Dioxide 27 mmol/L (22-30); Chloride 108 mmol/L (98-107); Glucose 100 mg/dL (74-99); Magnesium 2.4 mg/dL (1.6-2.3); Non-African American GFR(MDRD) >60 (>60 ml/min/1.73 sqM); Phosphorous 2.8 mg/dL (2.5-4.5); Potassium 3.9 mmol/L (3.5-5.1); Sodium 142 mmol/L (137-145); Total Bilirubin 0.7 mg/dL (0.2-1.3); Total Protein 4.1 g/dL (6.3-8.2)
[2016-04-21 06:18] LABS: Glucose,Whole Blood 124 mg/dL (75-99)
--- NOTE | 2016-04-21 07:38 | XR ---
EXAMINATION TYPE: XR chest 1V portable DATE OF EXAM: 04/21/2016 6:58 AM COMPARISON: Yesterday HISTORY: Postop cardiac surgery TECHNIQUE: Single frontal view of the chest is obtained. FINDINGS: There are bilateral chest tubes. There is mild pulmonary congestion. There is blunting of costophrenic angles. Cardiac silhouette is enlarged. Endotracheal tube is in good position. There is a nasogastric tube. Detail is limited by underexposure. IMPRESSION: Mild heart failure is probably improved compared to yesterday. Bilateral pleural effusio ns. Large cardiac silhouette could relate to pericardial effusion.
[2016-04-21] MEDS: LACTATED RINGERS 1,000 ML IV SCH ×4 (07:45→15:15)
--- NOTE | 2016-04-21 07:56 | P.PN ---
Progress Note - Text CV Surgery Nursing POD: #3, triple vessel coronary artery bypass grafting using the left internal mammary artery to the left anterior descending coronary artery, a reverse greater saphenous vein graft from the aorta to the early arising posterior descending coronary artery, a reverse greater saphenous vein graft from the aorta to the intramyocardial ramus intermedius artery proximally. 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 Intraoperative transesophageal echocardiogram and Epi-aortic scanning. Endoscopic vein harvesting of the right greater saphenous vein. #3 Reexploration for postoperative bleeding. Patient remains intubated with mechanical ventilator support, he is sedated on Diprivan drip at 20 mcg/kg/m. He is not following any verbal commands at this time although he does withdrawal from noxious stimuli. Vital Signs: T-max temperature 101.8F. Vital Signs - 24 hr 04/20/16 04/20/16 04/20/16 07:57 08:00 08:15 Temperature Pulse Rate 92 93 103 H Respiratory 20 Rate Blood Pressure O2 Sat by Pulse 97 Oximetry 04/20/16 04/20/16 04/20/16 08:30 09:00 09:30 Temperature Pulse Rate 92 94 93 Respiratory 19 10 L 27 H Rate Blood Pressure O2 Sat by Pulse 96 98 99 Oximetry 04/20/16 04/20/16 04/20/16 09:34 09:44 10:00 Temperature 100.9 F H 100.9 F H Pulse Rate 82 87 90 Respiratory 16 16 22 Rate Blood Pressure 108/46 112/47 O2 Sat by Pulse 96 97 97 Oximetry 04/20/16 04/20/16 04/20/16 10:04 10:30 11:00 Temperature 100.9 F H Pulse Rate 89 106 H 99 Respiratory 16 26 H 23 Rate Blood Pressure 113/45 O2 Sat by Pulse 97 100 92 L Oximetry 04/20/16 04/20/16 04/20/16 11:14 11:30 12:00 Temperature Pulse Rate 97 101 H 94 Respiratory 24 26 H Rate Blood Pressure O2 Sat by Pulse 91 L 93 L Oximetry 04/20/16 04/20/16 04/20/16 12:15 12:30 13:00 Temperature 101.8 F H Pulse Rate 100 92 96 Respiratory 24 28 H 28 H Rate Blood Pressure 98/45 O2 Sat by Pulse 92 L 94 L 95 Oximetry 04/20/16 04/20/16 04/20/16 13:30 14:00 14:30 Temperature Pulse Rate 96 97 93 Respiratory 30 H 31 H 16 Rate Blood Pressure O2 Sat by Pulse 93 L 92 L 93 L Oximetry 04/20/16 04/20/16 04/20/16 15:00 15:30 16:00 Temperature Pulse Rate 92 110 H 87 Respiratory 16 22 20 Rate Blood Pressure O2 Sat by Pulse 96 96 96 Oximetry 04/20/16 04/20/16 04/20/16 16:28 16:30 17:00 Temperature Pulse Rate 96 90 87 Respiratory 20 18 Rate Blood Pressure O2 Sat by Pulse 96 95 Oximetry 04/20/16 04/20/16 04/20/16 17:06 17:30 18:00 Temperature Pulse Rate 96 100 93 Respiratory 23 27 H Rate Blood Pressure O2 Sat by Pulse 95 96 Oximetry 04/20/16 04/20/16 04/20/16 18:30 19:00 19:30 Temperature Pulse Rate 91 92 94 Respiratory 24 20 24 Rate Blood Pressure O2 Sat by Pulse 96 96 97 Oximetry 04/20/16 04/20/16 04/20/16 19:35 19:52 20:00 Temperature Pulse Rate 90 93 92 Respiratory 24 Rate Blood Pressure O2 Sat by Pulse 98 Oximetry 04/20/16 04/20/16 04/20/16 20:30 21:00 21:30 Temperature Pulse Rate 101 H 87 87 Respiratory 21 20 18 Rate Blood Pressure O2 Sat by Pulse 97 97 98 Oximetry 04/20/16 04/20/16 04/20/16 22:00 22:30 23:00 Temperature Pulse Rate 90 80 78 Respiratory 16 16 12 Rate Blood Pressure O2 Sat by Pulse 98 98 98 Oximetry 04/20/16 04/20/16 04/20/16 23:23 23:30 23:39 Temperature Pulse Rate 81 79 80 Respiratory 16 Rate Blood Pressure O2 Sat by Pulse 99 Oximetry 04/21/16 04/21/16 04/21/16 00:00 00:30 01:00 Temperature Pulse Rate 80 80 79 Respiratory 14 15 18 Rate Blood Pressure O2 Sat by Pulse 97 97 98 Oximetry 04/21/16 04/21/16 04/21/16 01:30 02:00 02:30 Temperature Pulse Rate 78 77 79 Respiratory 12 16 16 Rate Blood Pressure O2 Sat by Pulse 98 99 99 Oximetry 04/21/16 04/21/16 04/21/16 03:00 03:13 03:25 Temperature Pulse Rate 76 88 68 Respiratory 15 Rate Blood Pressure O2 Sat by Pulse 99 Oximetry 04/21/16 04/21/16 04/21/16 04:00 05:00 06:00 Temperature Pulse Rate 78 73 74 Respiratory 16 27 H 10 L Rate Blood Pressure O2 Sat by Pulse 98 95 100 Oximetry 04/21/16 06:30 Temperature Pulse Rate 75 Respiratory 13 Rate Blood Pressure O2 Sat by Pulse 99 Oximetry ABP, PAP, CO, CI - Last 8 Hours Arterial Blood Pressure 106/48 Arterial Blood Pressure 113/52 Arterial Blood Pressure 94/42 Arterial Blood Pressure 127/55 Arterial Blood Pressure 98/47 Arterial Blood Pressure 111/51 Arterial Blood Pressure 102/42 Arterial Blood Pressure 109/56 Arterial Blood Pressure 105/50 Arterial Blood Pressure 102/48 Arterial Blood Pressure 115/50 Pulmonary Artery Pressure 41/22 Pulmonary Artery Pressure 45/24 Pulmonary Artery Pressure 76/25 Pulmonary Artery Pressure 35/20 Pulmonary Artery Pressure 35/17 Pulmonary Artery Pressure 37/18 Pulmonary Artery Pressure 37/18 Pulmonary Artery Pressure 36/18 Pulmonary Artery Pressure 36/17 Pulmonary Artery Pressure 36/16 Pulmonary Artery Pressure 37/20 Cardiac Output 6.7 Cardiac Output 6.7 Cardiac Output 6.7 Cardiac Output 6.9 Cardiac Output 6.9 Cardiac Output 6.9 Cardiac Output 6.9 Cardiac Output 6.9 Cardiac Output 6.9 Cardiac Output 6.9 Cardiac Output 6.9 Cardiac Index 2.9 Labs: Short CBC 04/21/16 Range/Units 04:29 WBC 9.9 (3.8-10.6) k/uL Hgb 6.8 L* (13.0-17.5) gm/dL Hct 20.5 L (39.0-53.0) % Plt Count 85 L (150-450) k/uL Neutrophils # 7.5 (1.3-7.7) k/uL BMP 04/20/16 04/21/16 20:10 04:29 Sodium 141 142 Potassium 4.0 3.9 Chloride 107 108 H Carbon Dioxide 26 27 BUN 26 H 26 H Creatinine 1.12 1.10 Glucose 112 H 100 H Calcium 7.7 L 7.6 L Liver Function 04/21/16 Range/Units 04:29 Total Bilirubin 0.7 (0.2-1.3) mg/dL AST 48 (17-59) U/L ALT 35 (21-72) U/L Alkaline Phosphatase 50 (38-126) U/L Albumin 2.3 L (3.5-5.0) g/dL Most recent lab results ABG pH 7.42 (7.35-7.45) 04/21/16 05:13 ABG pCO2 37 mmHg (35-45) 04/21/16 05:13 ABG pO2 82 mmHg (83-108) L 04/21/16 05:13 ABG HCO3 24 mmol/L (21-25) 04/21/16 05:13 ABG O2 Saturation 96.0 % (94-97) 04/21/16 05:13 Calcium 7.6 mg/dL (8.4-10.2) L 04/21/16 04:29 Phosphorus 2.8 mg/dL (2.5-4.5) 04/21/16 04:29 Magnesium 2.4 mg/dL (1.6-2.3) H 04/21/16 04:29 ABG ABG pH 7.42 (7.35-7.45) 04/21/16 05:13 ABG pCO2 37 mmHg (35-45) 04/21/16 05:13 ABG pO2 82 mmHg (83-108) L 04/21/16 05:13 ABG O2 Saturation 96.0 % (94-97) 04/21/16 05:13 PT/INR, D-dimer PT 11.3 sec (9.0-12.0) 04/20/16 04:00 INR 1.1 (<1.1) 04/20/16 04:00 D-Dimer 0.73 mg/L FEU (<0.60) H 04/13/16 10:43 Microbiology 04/20/16 10:30 Bronchoalviolar Lavage - Right Gram Stain - Preliminary 04/20/16 10:30 Bronchoalviolar Lavage - Right Bronchial Washings Culture - Preliminary 04/20/16 10:30 Bronchoalviolar Lavage - Right Fungal Culture - Preliminary 04/20/16 10:30 Bronchoalviolar Lavage - Right Acid Fast Bacilli Culture - Preliminary 04/17/16 14:28 Urine,Clean Catch Urine Culture - Final 04/15/16 18:00 Nasal Swab Nasal Culture - Final IV Fluids: Lactated Ringer's at 30 mL/h Primacor drip at 0.25 mcg/kg/m Norepinephrine at 2 mcg/m Propofol at 20 mcg/kg/m Cardiac output: 6.7 Cardiac index: 2.8 Pulmonary artery pressures: 41/22 CVP: 16 Lungs: Diminished bilateral bases, right greater than left. Essentially clear to bilateral upper lobes. Respirations are unlabored with mechanical ventilator support. Current ventilator settings are as follows: AC 16, TV 550, FiO2 50%, PEEP 8. O2 sat: 99% with mechanical ventilator support and FiO2 O2 sat at 50%. Heart: S1S2, irregular rhythm with controlled rate, negative for murmur, S3 or gallop. Bedside telemetry showing normal sinus rhythm with frequent PVCs, heart rate 77. Sternum stable, chest incision clean with silverlon dressing clean and dry. Heart hugger in place. Right leg incisions clean dry and well approximated. DOTTIE drain in place. 0 output drainage in the last 24 hours. Knee-high KARON hose and sequential compression devices in place to bilateral lower extremities. Abdomen: Soft, Positive bowel sounds present in all 4 quadrants, OG tube remains to continuous low intermittent. CBGs: 117-124 mg/dL in the last 24 hours. U/O: Adequate, Nava catheter for accurate I&O. Chest Tubes: Mediastinal chest tubes without air leak, remains to continuous low wall suction -20 cm water. 50 mL output in the last 8 hours, 200 mL output in the last 24 hours. Left pleural chest tube without air leak, remains to continuous low wall suction -20 cm water. 40 mL output in the last 8 hours, 100 mL output in the last 24 hours. Right pleural chest tube without air leak, remains to continuous low wall suction -20 cm water. 60 mL output in the last 8 hours, 110 mL output in the last 24 hours. 24 hr Total: Intake & Output 04/19/16 04/20/16 04/21/16 04/22/16 06:59 06:59 06:59 06:59 Intake Total 6393.628 2628.021 4167.554 Output Total 7115 1800 2221 Balance -721.372 015.054 2957.554 Weight 125.8 kg 130 kg 134.8 kg Active Medications Generic Name Dose Route Start Last Admin Trade Name Freq PRN Reason Stop Dose Admin Acetaminophen 650 mg 04/20/16 19:38 Tylenol Tab PO Q6HR PRN Fever and/ or Pain Acetaminophen/Hydrocodone Bitart 2 each 04/19/16 14:56 04/21/16 04:10 [place] 5-325 PO 2 each Q4HR PRN Administration Severe Pain Acetaminophen/Hydrocodone Bitart 1 each 04/19/16 14:56 [place] 5-325 PO Q4HR PRN Moderate Pain Acetylcysteine 200 mg 04/19/16 00:00 04/20/16 19:36 Mucomyst INHALATION 200 mg RT-QID ADAM Administration Albuterol/Ipratropium 3 ml 04/18/16 16:00 04/21/16 03:13 Duoneb 0.5 Mg-3 Mg/3 Ml Soln INHALATION 3 ml RT-Q4H ADAM Administration Albuterol/Ipratropium 3 ml 04/19/16 14:59 Duoneb 0.5 Mg-3 Mg/3 Ml Soln INHALATION RT-Q2H PRN Shortness Of Breath Or Wheezing Aspirin 81 mg 04/20/16 09:00 04/20/16 08:59 Aspirin PO 81 mg DAILY ADAM Administration Atorvastatin Calcium 40 mg 04/19/16 09:00 04/20/16 08:59 Lipitor PO 40 mg DAILY ADAM Administration Benzocaine/Menthol 1 each 04/18/16 14:58 Cepacol Lozenge MUCOUS MEM Q2H PRN Sore Throat Bisacodyl 10 mg 04/19/16 14:58 Dulcolax RECTAL DAILY PRN Constipation Chlorhexidine Gluconate 15 ml 04/20/16 22:30 04/20/16 23:18 Peridex MUCOUS MEM 15 ml BID ADAM Administration Clopidogrel Bisulfate 75 mg 04/20/16 09:00 04/20/16 08:59 Plavix PO 75 mg DAILY ADAM Administration Finasteride 5 mg 04/20/16 09:00 04/20/16 08:59 Proscar PO 5 mg DAILY ADAM Administration Heparin Sodium (Porcine) 5,000 unit 04/19/16 16:00 04/21/16 00:01 Heparin SQ 5,000 unit Q8HR ADAM Administration Insulin Human Regular 100 unit 101 mls @ 0 mls/hr 04/18/16 14:30 04/20/16 23: 14 / Sodium Chloride IV 0 units/hr .Q0M ADAM 0 mls/hr Protocol Titration Per Protocol Clevidipine 25 mg/ IV Solution 50 mls @ 2 mls/hr 04/18/16 14:45 04/20/16 17: 04 IV Not Given .Q24H ADAM Protocol 1 MG/HR Lactated Ringer's 1,000 mls @ 50 mls/hr 04/18/16 15:00 04/21/16 07:45 Lactated Ringers IV 30 mls/hr .Q20H ADAM Administration Milrinone Lactate/Dextrose 20 100 mls @ 0 mls/hr 04/18/16 15:00 04/21/16 00: 02 mg/ IV Solution IV 0.35 mcg/kg/min .Q0M ADAM 12.57 mls/hr Protocol Administration Per Protocol Nitroglycerin/Dextrose 50 mg/ 250 mls @ 1.5 mls/hr 04/18/16 15:00 04/20/16 16 :59 IV Solution IV Not Given .Q24H ADAM 5 MCG/MIN Norepinephrine Bitartrate 16 266 mls @ 0 mls/hr 04/18/16 14:45 04/20/16 20:59 mg/ Sodium Chloride IV 4 mcg/min .Q0M ADAM 3.99 mls/hr Protocol Administration Titrate Propofol 500 mg/ IV Solution 50 mls @ 0 mls/hr 04/18/16 15:00 04/21/16 02:50 IV 20 mcg/kg/min .Q0M ADAM 14.37 mls/hr Protocol Administration Titrate Vasopressin 20 unit/ Sodium 100 mls @ 9 mls/hr 04/18/16 14:45 04/21/16 00:02 Chloride IV Not Given .Q11H7M ADAM Protocol 0.03 UNITS/MIN Piperacillin/Tazobactam/ 50 mls @ 12.5 mls/hr 04/20/16 10:45 04/21/16 00:01 Dextrose 3.375 gm/ IV Solution IVPB 12.5 mls/hr Q8HR ADAM Administration Vancomycin HCl 2,000 mg/ 500 mls @ 167 mls/hr 04/20/16 22:00 04/20/16 20:59 Sodium Chloride IVPB 167 mls/hr Q16H ADAM Administration Magnesium Hydroxide 2,400 mg 04/19/16 14:58 Milk Of Magnesia PO BID PRN Constipation Metoprolol Tartrate 12.5 mg 04/19/16 09:00 04/20/16 20:58 Lopressor PO 12.5 mg BID ADAM Administration Miscellaneous Information 1 each 04/18/16 14:58 Magnesium Per Protocol MISCELLANE DAILY PRN Per Protocol Protocol Miscellaneous Information 1 each 04/18/16 14:58 Phosphorus Per Protocol MISCELLANE DAILY PRN Per Protocol Protocol Miscellaneous Information 1 each 04/18/16 14:58 Potassium Per Protocol MISCELLANE DAILY PRN Per Protocol Protocol Miscellaneous Information 0 each 04/22/16 05:30 Vancomycin Trough Due MISCELLANE 04/22/16 05:31 DIRECTED ONE Morphine Sulfate 2 mg 04/18/16 14:51 Morphine Sulfate (Inj) IVP Q2H PRN Severe Pain Ondansetron HCl 4 mg 04/18/16 14:58 Zofran IVP Q6HR PRN Nausea And Vomiting Pantoprazole Sodium 40 mg 04/19/16 09:00 04/20/16 08:58 Protonix IVP 40 mg DAILY ADAM Administration Potassium Chloride 20 meq 04/21/16 08:00 Potassium Chloride Oral Liquid NG-TUBE 04/21/16 08:01 Q1HR ADAM Senna/Docusate Sodium 2 each 04/19/16 21:00 04/20/16 20:59 Senokot-S PO 2 each HS ADAM Administration Sodium Chloride 10 ml 04/18/16 21:00 04/20/16 21:00 Saline Flush IV Not Given BID ADAM Plan: The Primacor drip will be decreased to 0.2 mcg/kg/m, he will receive 1 unit of packed red blood cells followed by 40 mg of Lasix IV 1. He will be started on tube feeding today per dietitian recommendations. The patient's mediastinal chest tubes were removed. Dr. [place] will discuss with Dr. Sales from pulmonary medicine to possibly repeat a bronchoscopy today. Repeat chest x-ray, CBC, CMP in a.m. Norepinephrine will be discontinued, and Gal-Synephrine will be started for hyportensive control.
[2016-04-21] MEDS ORDERED: FUROSEMIDE 10 MG/ML 4 ML VIAL IV STA (07:57)
[2016-04-21] MEDS ORDERED: PHENYLEPHRINE 40 MG in SODIUM CHLORIDE 0.9% 250 ML IV SCH (08:00)
[2016-04-21] MEDS: ACETYLCYSTEINE 800 MG/4 ML VIAL INHALATION SCH ×4 (08:00→19:27)
[2016-04-21] MEDS ORDERED: MILRINONE-D5W PMX 20 MG in DEXTROSE/WATER 1 100ML.BAG IV SCH ×2 (08:00→10:15)
[2016-04-21] MEDS ORDERED: POTASSIUM CHLORIDE ORAL LIQUID 40 MEQ/30 ML CUP NG-TUBE SCH (08:00)
[2016-04-21 08:36] LABS: Glucose,Whole Blood 118 mg/dL (75-99)
[2016-04-21] MEDS: CHLORHEXIDINE GLUCONATE 15 ML CUP MUCOUS MEM SCH ×2 (08:58→20:06)
[2016-04-21] MEDS: ATORVASTATIN 40 MG TAB PO SCH (08:59)
[2016-04-21] MEDS: PANTOPRAZOLE 40 MG/10 ML VIAL IVP SCH (08:59)
[2016-04-21] MEDS: CLOPIDOGREL 75 MG TAB PO SCH (08:59)
[2016-04-21] MEDS: ASPIRIN 81 MG CHEW PO SCH (08:59)
[2016-04-21] MEDS ORDERED: LIDOCAINE 2% SYG (PF) 100 MG/5 ML IV ONE (09:00)
[2016-04-21] MEDS: METOPROLOL TARTRATE 25 MG TAB PO SCH ×2 (09:03→20:06)
[2016-04-21 10:06] LABS: Glucose,Whole Blood 106 mg/dL (75-99)
[2016-04-21 11:07] LABS: Glucose,Whole Blood 109 mg/dL (75-99)
[2016-04-21] MEDS: BISACODYL 10 MG SUPP RECTAL PRN (11:15)
--- NOTE | 2016-04-21 11:48 | P.PN ---
Subjective Principal diagnosis: Coronary artery disease, triple vessel, severe left ventricular dysfunction This 76-year-old male patient , post 3 vessel bypass surgery including PHAM to LAD saphenous vein graft to diagonal and ramus branches and aortic valve replacement was currently back in the intensive care unit and the patient is postop day 1. Note that the patient was taken back to the operating room after he arrived the ICU. The patient was having bleeding from his mediastinal chest tubes. Further examination was done and the bleeding site was identified and the local hemostasis was achieved and following that the patient was brought back to the intensive care unit. Overnight, the patient remains on a mechanical ventilator and he remains sedated with Diprivan. He was gradually taken off the vasopressin drip and the Gal-Synephrine drip and both are discontinued. Currently is on 8 mics of norepinephrine infusion and Primacor. He is hemodynamically stable. He remains on a mechanical ventilator and his series of chest x-rays that was done postop showed a partial atelectasis of the right upper lobe which subsequently improved. Morning's chest x-ray showed adequate expansion of the right upper lobe area and there is probably some small better pleural effusion. ET tube is in a good location. The patient has a Coleraine-Candace catheter in place. There aren't pleural and mediastinal chest tubes are all in place. On the mechanical ventilator, the patient is on a assist-control mode at the rate of 20, tidal volume of 650, FiO2 of 80% and PEEP of 12. He is having some air leak within the mediastinal chest tube. Output however has improved and there is evidence of any acute bleeding. Hemoglobin is stable for now. On 04/20/2016 the patient is being seen in follow-up. The patient is still intubated on mechanical ventilator. He is an assist-control mode with a tidal volume that was dropped down to 550 and the rate of 20 with a PEEP of 8 and FiO2 of 50%. Blood gases from earlier this morning showed a component of respiratory alkalosis with a pH of 7.53 and a pCO2 of 27 and pO2 of 80. The patient demonstrated right lower lobe atelectasis on today's chest x-ray. It acutely remains in a good location. All of the chest tubes are still in place. The patient is still having air leak for the mediastinal tube. Total amount of output from old the chest tubes have been 150 mL over the past 8 hours. Hemoglobin has dropped down to 6.8 and the patient is receiving a unit of packed RBC. Otherwise no chills. No fever. No hypotension. No leukocytosis. Based on the x-ray findings, I performed a bronchoscopy on this patient and copious amount of purulent discharge secretions were identified in the right lower lobe and the bronchus intermedius. Therapeutic airway suctioning was done. The pertinent rest or secretions were sent out for cultures. Therapeutic airway washing was done. The patient was started on broad-spectrum antibiotics and he was covered with a combination of Zosyn and vancomycin. Hemodynamically, the patient was taken off the pressors. He is off the norepinephrine infusion. He is still on Primacor. He has adequate urine output and adequate cardiac output at this point. On the patient is being seen in follow-up. The patient is still has consolidation/atelectasis of the right lower lobe. There is significant volume loss on his chest x-ray. He remains on a same vent setting which includes an assist-control of 16, tidal volume of 550, FiO2 of 50% and a PEEP of 8. The blood gases showed a pH of 7.42 with a pCO2 of 37 and pO2 of 82. The patient is hemodynamically stable. He is off norepinephrine infusion. He is still on Primacor at the rate of 0.4 mics and his most recent cardiac index is at 1.8. The [facility] chest tubes are out and the patient has right pleural and left pleural chest tubes. He was bronchoscoped yesterday and copious amount of rest or secretions were suctioned from his right lung. The cultures are pending for now and meanwhile the Gram stain is shown gram-positive cocci. The patient was having on and off fever yesterday and his blood pressure was fluctuating with occasional episodes of hypotension. Episodically was requiring brief pressors and currently off norepinephrine infusion. Antibiotic coverage including a combination of Zosyn and vancomycin. He is sedated with Diprivan. A brief sedation holiday was given and he follows commands and his mentation is appropriate at this point. He is on insulin drip for blood sugar control. He' ll be initiated on tube feeds today. Objective - Vital Signs Vital signs: Vital Signs Temp 98.6 F 04/21/16 09:51 Pulse 73 04/21/16 11:00 Resp 16 04/21/16 11:00 BP 119/63 12/25/16 09:51 Pulse Ox 96 04/21/16 11:00 Intake & Output 04/20/16 04/21/16 04/21/16 18:59 06:59 18:59 Intake Total 2746.4 1503.141 772.274 Output Total 1366 855 510 Balance 1380.4 648.141 262.274 Weight 130 kg 134.8 kg Intake: IV 1975.4 679 289 .9NS Cardiac Output 60 100 70 0.9NS Pressure Bag 117 120 60 Insulin Regular 100 unit 48.5 In Sodium Chloride 0.9% 100 ml @ Per Protocol IV .Q0M [facility] Rx#:[id number] Lactated Ringers 1,000 ml 1360 360 150 @ 30 mls/hr IV .Q24H [facility] Rx#:[id number] Primacor 149.4 99 9 Propofol 500 mg In Empty 240.5 Bag 1 bag @ Titrate IV . Q0M [facility] Rx#:[id number] Intake, IV Titration 151 824.141 113.274 Amount Insulin Regular 100 unit 101 28.414 0 In Sodium Chloride 0.9% 100 ml @ Per Protocol IV .Q0M [facility] Rx#:[id number] Milrinone-D5w Pmx 20 mg 21.6 In Dextrose/Water 1 100ml .bag @ 0.2 MCG/KG/MIN 8. 08 mls/hr IV .[id number] [facility] Rx#:[id number] Milrinone-D5w Pmx 20 mg 14.4 In Dextrose/Water 1 100ml .bag @ 0.4 MCG/KG/MIN 16. 17 mls/hr IV .Q6H12M [facility] Rx#:[id number] Milrinone-D5w Pmx 20 mg 100 In Dextrose/Water 1 100ml .bag @ Per Protocol IV . Q0M [facility] Rx#:[id number] Norepinephrine 16 mg In 31.987 Sodium Chloride 0.9% 250 ml @ Titrate IV .Q0M [facility] Rx#:[id number] Piperacillin-Tazobactam 3 62.5 25.0 .375 gm In Dextrose/Water 1 50ml.bag @ 12.5 mls/hr IVPB Q8HR [facility] Rx#: [id number] Propofol 500 mg In Empty 50 100.24 52.274 Bag 1 bag @ Titrate IV . Q0M [facility] Rx#:[id number] Vancomycin 2,000 mg In 501 Sodium Chloride 0.9% 500 ml @ 167 mls/hr IVPB Q16H [facility] Rx#:[id number] Oral 0 Blood Product 620 250 Rc As-1 Unit 310 [id number] Rc Cpda-1 Unit 250 [id number] Other 120 Output: Chest Tube Drainage 320 290 80 Left Pleural 60 70 20 Mediastinal 120 100 20 Right Pleural 140 120 40 Gastric Drainage 75 Drainage 10 Right Calf 10 Urine 1046 565 345 Other: Voiding Method Indwelling Catheter Indwelling Catheter Indwelling Catheter ABP, PAP, CO, CI - Last Documented Arterial Blood Pressure 97/50 Pulmonary Artery Pressure 36/19 Cardiac Output 4.2 Cardiac Index 1.8 - Exam Intubated on the mechanical ventilator., Comfortable sedated with Diprivan.Head exam was generally normal. There was no scleral icterus or corneal arcus. Mucous membranes were moist. Neck is supple there is a right Coleraine-Candace catheter in place. No goiter or neck masses. Lungs are diminished bilaterally otherwise there is some few scattered expiratory wheezes. Heart sounds are regular, positive S1-S2 along with that there is a cardiac rub. Chest tubes are all in good location.Abdominal exam revealed normal bowel sounds. The abdomen was soft, non-tender, and without masses, organomegaly, or appreciable enlargement of the abdominal aorta. Extremities showed diminished pulses and there is no cyanosis or clubbing at this point. Neurologically the patient is sedated. - Labs CBC & Chem 7: 04/21/16 04:29 04/21/16 04:29 Labs: Abnormal Lab Results - Last 24 Hours (Table) 04/20/16 04/20/16 04/20/16 Range/Units 07:45 12:28 13:47 RBC (4.30-5.90) m/uL Hgb (13.0-17.5) gm/dL Hct (39.0-53.0) % Plt Count (150-450) k/uL ABG pO2 (83-108) mmHg ABG Total CO2 (19-24) mmol/L Chloride (98-107) mmol/L BUN (9-20) mg/dL Glucose (74-99) mg/dL POC Glucose (mg/dL) 133 H 124 H (75-99) mg/dL Calcium (8.4-10.2) mg/dL Magnesium (1.6-2.3) mg/dL Total Protein (6.3-8.2) g/dL Albumin (3.5-5.0) g/dL Crossmatch See Detail 04/20/16 04/20/16 04/20/16 Range/Units 15:46 18:17 20:06 RBC (4.30-5.90) m/uL Hgb (13.0-17.5) gm/dL Hct (39.0-53.0) % Plt Count (150-450) k/uL ABG pO2 (83-108) mmHg ABG Total CO2 (19-24) mmol/L Chloride (98-107) mmol/L BUN (9-20) mg/dL Glucose (74-99) mg/dL POC Glucose (mg/dL) 117 H 121 H 125 H (75-99) mg/dL Calcium (8.4-10.2) mg/dL Magnesium (1.6-2.3) mg/dL Total Protein (6.3-8.2) g/dL Albumin (3.5-5.0) g/dL Crossmatch 04/20/16 04/20/16 04/20/16 Range/Units 20:10 22:09 23:14 RBC (4.30-5.90) m/uL Hgb (13.0-17.5) gm/dL Hct (39.0-53.0) % Plt Count (150-450) k/uL ABG pO2 (83-108) mmHg ABG Total CO2 (19-24) mmol/L Chloride (98-107) mmol/L BUN 26 H (9-20) mg/dL Glucose 112 H (74-99) mg/dL POC Glucose (mg/dL) 111 H 121 H (75-99) mg/dL Calcium 7.7 L (8.4-10.2) mg/dL Magnesium (1.6-2.3) mg/dL Total Protein (6.3-8.2) g/dL Albumin (3.5-5.0) g/dL Crossmatch 04/20/16 04/21/16 04/21/16 Range/Units 23:59 02:35 04:24 RBC (4.30-5.90) m/uL Hgb (13.0-17.5) gm/dL Hct (39.0-53.0) % Plt Count (150-450) k/uL ABG pO2 (83-108) mmHg ABG Total CO2 (19-24) mmol/L Chloride (98-107) mmol/L BUN (9-20) mg/dL Glucose (74-99) mg/dL POC Glucose (mg/dL) 124 H 118 H 108 H (75-99) mg/dL Calcium (8.4-10.2) mg/dL Magnesium (1.6-2.3) mg/dL Total Protein (6.3-8.2) g/dL Albumin (3.5-5.0) g/dL Crossmatch 04/21/16 04/21/16 04/21/16 Range/Units 04:29 04:29 05:08 RBC 2.28 L (4.30-5.90) m/uL Hgb 6.8 L* (13.0-17.5) gm/dL Hct 20.5 L (39.0-53.0) % Plt Count 85 L (150-450) k/uL ABG pO2 (83-108) mmHg ABG Total CO2 (19-24) mmol/L Chloride 108 H (98-107) mmol/L BUN 26 H (9-20) mg/dL Glucose 100 H (74-99) mg/dL POC Glucose (mg/dL) 116 H (75-99) mg/dL Calcium 7.6 L (8.4-10.2) mg/dL Magnesium 2.4 H (1.6-2.3) mg/dL Total Protein 4.1 L (6.3-8.2) g/dL Albumin 2.3 L (3.5-5.0) g/dL Crossmatch 04/21/16 04/21/16 04/21/16 Range/Units 05:13 06:16 08:34 RBC (4.30-5.90) m/uL Hgb (13.0-17.5) gm/dL Hct (39.0-53.0) % Plt Count (150-450) k/uL ABG pO2 82 L (83-108) mmHg ABG Total CO2 25 H (19-24) mmol/L Chloride (98-107) mmol/L BUN (9-20) mg/dL Glucose (74-99) mg/dL POC Glucose (mg/dL) 124 H 118 H (75-99) mg/dL Calcium (8.4-10.2) mg/dL Magnesium (1.6-2.3) mg/dL Total Protein (6.3-8.2) g/dL Albumin (3.5-5.0) g/dL Crossmatch 04/21/16 04/21/16 Range/Units 10:05 11:06 RBC (4.30-5.90) m/uL Hgb (13.0-17.5) gm/dL Hct (39.0-53.0) % Plt Count (150-450) k/uL ABG pO2 (83-108) mmHg ABG Total CO2 (19-24) mmol/L Chloride (98-107) mmol/L BUN (9-20) mg/dL Glucose (74-99) mg/dL POC Glucose (mg/dL) 106 H 109 H (75-99) mg/dL Calcium (8.4-10.2) mg/dL Magnesium (1.6-2.3) mg/dL Total Protein (6.3-8.2) g/dL Albumin (3.5-5.0) g/dL Crossmatch Microbiology - Last 24 Hours (Table) 04/20/16 10:30 Gram Stain - Preliminary Bronchoalviolar Lavage - Right Bronchial Washings Culture - Preliminary 04/20/16 10:30 Fungal Culture - Preliminary Bronchoalviolar Lavage - Right 04/20/16 10:30 Acid Fast Bacilli Culture - Preliminary Bronchoalviolar Lavage - Right Assessment and Plan Plan: Assessment 1 shortness of breath essentially of a cardiac in nature. 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 CTA of the chest shows changes consistent with CHF with small bilateral pleural effusion and groundglass pulmonary infiltrates consistent with interstitial edema/CHF. On 04/18/2016, the patient is being seen postop. The patient underwent three- vessel bypass surgery and aortic valve replacement. Currently intubated on mechanical ventilator. Patient is on a multitude of pressors including a combination of norepinephrine infusion, vasopressin, Gal-Synephrine and Primacor. Most recent cardiac index at 2.7. Chest tubes are all in place. On 04/19/2016, the patient is being seen in follow-up. The patient was taken to the operating room force postoperative bleeding. The patient was taken back to the operating room and the patient was found to have bleeding from the ventricular pacing wire site in the right ventricle. He was given. He dad a resternotomy after the control of bleeding and currently is still in the process of being stabilized and weaned off the mechanical ventilator. During the process, he had a partial right upper lobe collapse which seems to be expanded on today's chest x-ray. He remains on a high degree of PEEP at 12 and he is having some minor air leak through the based on the chest tube. Lungs are well expanded and there is no evidence of pneumothorax. Hemodynamically better on lower doses of norepinephrine infusion and Primacor and the patient is currently off vasopressin and Gal-Synephrine. Sedated on a mechanical ventilator. Hemoglobin is stable in addition. On 04/20/2016 the patient is suspected to have a right lower lobe pneumonia. Morning chest x-ray showed a right lower lobe atelectasis and based on that a bronchoscopy was done and there was copious amount of respiratory secretions that was purulent of buying the bronchus intermedius and the right lower lobe. Therapeutic airway suctioning was done. Bronchial washing was obtained. Samples were sent for cultures and the patient was started on a broad-spectrum antibiotics and currently is on a combination of Zosyn and vancomycin. On 04/21/2016, the patient is still on a mechanical ventilator. The patient has developed right lung pneumonia with signs of sepsis. His chest x-ray is showing volume loss and atelectatic changes in the right lung base and the bronchoscopy and the bronchioloalveolar lavage was done and copious amount of purulent respiratory secretions were aspirated from the right lung and a repeat bronchoscopy will be done today based on the presence of ongoing volume loss. Patient is covered with a combination of Zosyn and vancomycin. He has a low- grade fever. He is hemodynamically doing well without any ongoing pressor dependence. Cardiac index is at 1.8 and the patient is on Primacor and the dose is being titrated. The mediastinal chest tubes have been removed. The patient is still on 8 of PEEP and FiO2 of 50%. 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 8 osteoarthritis 9 acute kidney injury, improved 10 obesity 11 postoperative anemia the patient was given a unit of packed RBC 4 hemoglobin of 6.8 Plan Continue vent support. Proceed with another bronchoscopy and therapeutic it was suctioning. Continue same antibiotic coverage. Awaiting cultures. Tylenol for fever. Initiate tube feeds for nutritional support. We'll continue to follow make further recommendations based on his progress. Critically care evaluation was done and 32 minutes. Time with Patient: Greater than 30
[2016-04-21 12:01] LABS: Glucose,Whole Blood 120 mg/dL (75-99)
--- NOTE | 2016-04-21 12:15 | P.PN ---
Subjective Principal diagnosis: Coronary artery disease, triple vessel, severe left ventricular dysfunction 76-year-old gentleman is admitted to the hospital with chest pain, patient was noted to have an and STEMI. Patient underwent a triple-vessel CABG and aortic valve replacement. Patient had be taken back to the or for re exploration of cardiac wall breathing. Patient is currently on pressor support. Patient is sedated and intubated and apparently was febrile overnight. Patient underwent a bedside bronchoscopy this morning. Patient is currently on empiric coverage with antibodiotics Currently titrated off vasopressor support. However continues to be on inotropic support with Primacor at 0.4 mics Patient was following commands and is moving all 4 extremities on sedation vacation trip. Continues to have thick oral and ET tube secretions. Objective - Vital Signs Vital signs: Vital Signs Temp 98.6 F 04/21/16 09:51 Pulse 73 04/21/16 11:00 Resp 16 04/21/16 11:00 BP 119/63 04/21/16 09:51 Pulse Ox 96 04/21/16 11:00 Intake & Output 04/20/16 04/21/16 04/21/16 18:59 06:59 18:59 Intake Total 2746.4 1503.141 788.803 Output Total 1366 855 510 Balance 1380.4 648.141 278.803 Weight 130 kg 134.8 kg Intake: IV 1975.4 679 289 .9NS Cardiac Output 60 100 70 0.9NS Pressure Bag 117 120 60 Insulin Regular 100 unit 48.5 In Sodium Chloride 0.9% 100 ml @ Per Protocol IV .Q0M [facility] Rx#:[id number] Lactated Ringers 1,000 ml 1360 360 150 @ 30 mls/hr IV .Q24H [facility] Rx#:[id number] Primacor 149.4 99 9 Propofol 500 mg In Empty 240.5 Bag 1 bag @ Titrate IV . Q0M [facility] Rx#:[id number] Intake, IV Titration 151 824.141 129.803 Amount Insulin Regular 100 unit 101 28.414 0 In Sodium Chloride 0.9% 100 ml @ Per Protocol IV .Q0M [facility] Rx#:[id number] Milrinone-D5w Pmx 20 mg 21.6 In Dextrose/Water 1 100ml .bag @ 0.2 MCG/KG/MIN 8. 08 mls/hr IV .[id number] [facility] Rx#:[id number] Milrinone-D5w Pmx 20 mg 14.4 In Dextrose/Water 1 100ml .bag @ 0.4 MCG/KG/MIN 16. 17 mls/hr IV .Q6H12M [facility] Rx#:[id number] Milrinone-D5w Pmx 20 mg 100 In Dextrose/Water 1 100ml .bag @ Per Protocol IV . Q0M [facility] Rx#:[id number] Norepinephrine 16 mg In 31.987 Sodium Chloride 0.9% 250 ml @ Titrate IV .Q0M [facility] Rx#:[id number] Piperacillin-Tazobactam 3 62.5 25.0 .375 gm In Dextrose/Water 1 50ml.bag @ 12.5 mls/hr IVPB Q8HR [facility] Rx#: [id number] Propofol 500 mg In Empty 50 100.24 68.803 Bag 1 bag @ Titrate IV . Q0M [facility] Rx#:[id number] Vancomycin 2,000 mg In 501 Sodium Chloride 0.9% 500 ml @ 167 mls/hr IVPB Q16H [facility] Rx#:[id number] Oral 0 Blood Product 620 250 Rc As-1 Unit 310 [id number] Rc Cpda-1 Unit 250 [id number] Other 120 Output: Chest Tube Drainage 320 290 80 Left Pleural 60 70 20 Mediastinal 120 100 20 Right Pleural 140 120 40 Gastric Drainage 75 Drainage 10 Right Calf 10 Urine 1046 565 345 Other: Voiding Method Indwelling Catheter Indwelling Catheter Indwelling Catheter ABP, PAP, CO, CI - Last Documented Arterial Blood Pressure 97/50 Pulmonary Artery Pressure 36/19 Cardiac Output 4.2 Cardiac Index 1.8 - Exam Gen. appearance intubated and sedated Lungs diminished breath sounds Heart no murmurs appreciated S1 and S2 heart Abdomen is soft nontender organomegaly Lower extremity no edema appreciated Neurologically deferred due to as patient is sedated. - Labs CBC & Chem 7: 04/21/16 04:29 04/21/16 04:29 Labs: Abnormal Lab Results - Last 24 Hours (Table) 04/20/16 04/20/16 04/20/16 Range/Units 07:45 12:28 13:47 RBC (4.30-5.90) m/uL Hgb (13.0-17.5) gm/dL Hct (39.0-53.0) % Plt Count (150-450) k/uL ABG pO2 (83-108) mmHg ABG Total CO2 (19-24) mmol/L Chloride (98-107) mmol/L BUN (9-20) mg/dL Glucose (74-99) mg/dL POC Glucose (mg/dL) 133 H 124 H (75-99) mg/dL Calcium (8.4-10.2) mg/dL Magnesium (1.6-2.3) mg/dL Total Protein (6.3-8.2) g/dL Albumin (3.5-5.0) g/dL Crossmatch See Detail 04/20/16 04/20/16 04/20/16 Range/Units 15:46 18:17 20:06 RBC (4.30-5.90) m/uL Hgb (13.0-17.5) gm/dL Hct (39.0-53.0) % Plt Count (150-450) k/uL ABG pO2 (83-108) mmHg ABG Total CO2 (19-24) mmol/L Chloride (98-107) mmol/L BUN (9-20) mg/dL Glucose (74-99) mg/dL POC Glucose (mg/dL) 117 H 121 H 125 H (75-99) mg/dL Calcium (8.4-10.2) mg/dL Magnesium (1.6-2.3) mg/dL Total Protein (6.3-8.2) g/dL Albumin (3.5-5.0) g/dL Crossmatch 04/20/16 04/20/16 04/20/16 Range/Units 20:10 22:09 23:14 RBC (4.30-5.90) m/uL Hgb (13.0-17.5) gm/dL Hct (39.0-53.0) % Plt Count (150-450) k/uL ABG pO2 (83-108) mmHg ABG Total CO2 (19-24) mmol/L Chloride (98-107) mmol/L BUN 26 H (9-20) mg/dL Glucose 112 H (74-99) mg/dL POC Glucose (mg/dL) 111 H 121 H (75-99) mg/dL Calcium 7.7 L (8.4-10.2) mg/dL Magnesium (1.6-2.3) mg/dL Total Protein (6.3-8.2) g/dL Albumin (3.5-5.0) g/dL Crossmatch 04/20/16 04/21/16 04/21/16 Range/Units 23:59 02:35 04:24 RBC (4.30-5.90) m/uL Hgb (13.0-17.5) gm/dL Hct (39.0-53.0) % Plt Count (150-450) k/uL ABG pO2 (83-108) mmHg ABG Total CO2 (19-24) mmol/L Chloride (98-107) mmol/L BUN (9-20) mg/dL Glucose (74-99) mg/dL POC Glucose (mg/dL) 124 H 118 H 108 H (75-99) mg/dL Calcium (8.4-10.2) mg/dL Magnesium (1.6-2.3) mg/dL Total Protein (6.3-8.2) g/dL Albumin (3.5-5.0) g/dL Crossmatch 04/21/16 04/21/16 04/21/16 Range/Units 04:29 04:29 05:08 RBC 2.28 L (4.30-5.90) m/uL Hgb 6.8 L* (13.0-17.5) gm/dL Hct 20.5 L (39.0-53.0) % Plt Count 85 L (150-450) k/uL ABG pO2 (83-108) mmHg ABG Total CO2 (19-24) mmol/L Chloride 108 H (98-107) mmol/L BUN 26 H (9-20) mg/dL Glucose 100 H (74-99) mg/dL POC Glucose (mg/dL) 116 H (75-99) mg/dL Calcium 7.6 L (8.4-10.2) mg/dL Magnesium 2.4 H (1.6-2.3) mg/dL Total Protein 4.1 L (6.3-8.2) g/dL Albumin 2.3 L (3.5-5.0) g/dL Crossmatch 04/21/16 04/21/16 04/21/16 Range/Units 05:13 06:16 08:34 RBC (4.30-5.90) m/uL Hgb (13.0-17.5) gm/dL Hct (39.0-53.0) % Plt Count (150-450) k/uL ABG pO2 82 L (83-108) mmHg ABG Total CO2 25 H (19-24) mmol/L Chloride (98-107) mmol/L BUN (9-20) mg/dL Glucose (74-99) mg/dL POC Glucose (mg/dL) 124 H 118 H (75-99) mg/dL Calcium (8.4-10.2) mg/dL Magnesium (1.6-2.3) mg/dL Total Protein (6.3-8.2) g/dL Albumin (3.5-5.0) g/dL Crossmatch 04/21/16 04/21/16 04/21/16 Range/Units 10:05 11:06 11:59 RBC (4.30-5.90) m/uL Hgb (13.0-17.5) gm/dL Hct (39.0-53.0) % Plt Count (150-450) k/uL ABG pO2 (83-108) mmHg ABG Total CO2 (19-24) mmol/L Chloride (98-107) mmol/L BUN (9-20) mg/dL Glucose (74-99) mg/dL POC Glucose (mg/dL) 106 H 109 H 120 H (75-99) mg/dL Calcium (8.4-10.2) mg/dL Magnesium (1.6-2.3) mg/dL Total Protein (6.3-8.2) g/dL Albumin (3.5-5.0) g/dL Crossmatch Microbiology - Last 24 Hours (Table) 04/20/16 10:30 Gram Stain - Preliminary Bronchoalviolar Lavage - Right Bronchial Washings Culture - Preliminary 04/20/16 10:30 Fungal Culture - Preliminary Bronchoalviolar Lavage - Right 04/20/16 10:30 Acid Fast Bacilli Culture - Preliminary Bronchoalviolar Lavage - Right Assessment and Plan Plan: #1 acute hypoxic respiratory failure as expected from my recent cardiac surgery. #2 shock as expected from recent cardiac surgery #3 CAD #4 congestive heart failure with a preoperative ejection fraction of 20-25% #5 COPD #6 osteoporosis #7 obesity #8 acute kidney injury which is improved. #9 questionable right atrial thrombus on the echocardiogram initially #10 sepsis 11 anemia with an acute component as expected from the recent surgery Plan Into Await bronchoscopy guided respiratory secretions were done and sent to cover biology. Continue antibiotics to cover empirically. Patient is critically ill. Continue vasopressor support. May need a repeat ABG. Chest tubes in place. He is currently on volume control ventilation. Patient is to undergo repeat bronchoscopy today. One more unit of PRBC transfusion. No signs of overt bleeding. Pulmonary hygiene
[2016-04-21 13:00] LABS: Glucose,Whole Blood 109 mg/dL (75-99)
[2016-04-21] MEDS ORDERED: POTASSIUM CHLORIDE ORAL LIQUID 40 MEQ/30 ML CUP NG-TUBE ONE ×2 (13:00→17:00)
[2016-04-21] MEDS ORDERED: IV FLUID CONTINUATION 1,000 ML IV ONE (13:51)
[2016-04-21 14:05] LABS: Glucose,Whole Blood 115 mg/dL (75-99)
--- NOTE | 2016-04-21 14:47 | PCN ---
DATE OF PROCEDURE: PROCEDURE: Bronchoscopy. PREOPERATIVE DIAGNOSIS: Right lower lobe atelectasis. POSTOPERATIVE DIAGNOSIS: Right lower lobe atelectasis/right lower lobe pneumonia with purulent respiratory secretions and mucous plugs obstructing the right lower lobe bronchus. This procedure was done in the intensive care unit. The patient was placed on 100% FiO2. The patient was already sedated with Diprivan. An adaptor was attached to orotracheal tube and the flexible bronchoscope was introduced into the right lower lung area. As the bronchoscope was being introduced the distal trachea was seen around 2 cm above the shanice. The shanice was sharp in the midline. The bilateral mainstem bronchi were patent. Immediately copious amounts of respiratory secretions were noted in the distal mainstem bronchus and the bronchus intermedius and this was extending through the right lower lobe bronchus and the various segments. Similar secretions were seen in the right middle lobe. Right upper lobe was free of any respiratory secretions. The left lung was essentially clear. Therapeutic airway suctioning was done and copious amount of purulent respiratory secretions were aspirated that were dark brownish in color. Following that, segmental washing was done where the different segments of the right lower lobe were infused with saline and were suctioned and aspirated. No bedside complications or bleeding. The samples will be sent for cultures and the patient was started on broad-spectrum antibiotics.
[2016-04-21] MEDS: VANCOMYCIN 2,000 MG in SODIUM CHLORIDE 0.9% 500 ML IVPB SCH (14:54)
[2016-04-21 15:04] LABS: Glucose,Whole Blood 109 mg/dL (75-99)
[2016-04-21 15:25] LABS: CH 30.9; CHCM 33.8; HCT 23.6 % (39.0-53.0); HDW 3.05; HGB 7.6 gm/dL (13.0-17.5); MCH 29.6 pg (25.0-35.0); MCHC 32.1 g/dL (31.0-37.0); MCV 92.1 fL (80.0-100.0); Mean Platelet Volume 9.3; RBC 2.56 m/uL (4.30-5.90); RDW 14.8 % (11.5-15.5); WBC 9.7 k/uL (3.8-10.6)
--- NOTE | 2016-04-21 15:35 | P.PN ---
Subjective Principal diagnosis: Coronary artery disease, triple vessel, severe left ventricular dysfunction This 76-year-old gentleman is status post I to coronary bypass surgery and also aortic valve replacement. Patient is still sedated and intubated. Apparently patient is having a lot of secretions and Repeated bronchoscopies contemplated. Patient also having intermittent mild fever. He is hemodynamically stable. He is off Levophed. Is on Primacor. His cardiac index is 1.8 patient will continue his current medical therapy. Apparently patient's mental status is preserved when he is off sedation Objective - Vital Signs Vital signs: Vital Signs Temp 98.6 F 04/21/16 09:51 Pulse 79 04/21/16 15:00 Resp 20 04/21/16 15:00 BP 119/63 04/21/16 09:51 Pulse Ox 96 04/21/16 15:00 Intake & Output 04/20/16 04/21/16 04/21/16 18:59 06:59 18:59 Intake Total 2746.4 9344.736 7130.519 Output Total 0715 124 7641 Balance 1380.4 648.141 -515.481 Weight 130 kg 134.8 kg Intake: IV 1975.4 679 537 .9NS Cardiac Output 60 100 100 0.9NS Pressure Bag 117 120 108 Insulin Regular 100 unit 48.5 In Sodium Chloride 0.9% 100 ml @ Per Protocol IV .Q0M ADAM Rx#:[id number] Lactated Ringers 1,000 ml 1360 360 270 @ 30 mls/hr IV .Q24H ADAM Rx#:[id number] Primacor 149.4 99 9 Propofol 500 mg In Empty 240.5 Bag 1 bag @ Titrate IV . Q0M ADAM Rx#:[id number] Intake, IV Titration 151 824.141 412.519 Amount Insulin Regular 100 unit 101 28.414 1.919 In Sodium Chloride 0.9% 100 ml @ Per Protocol IV .Q0M ADAM Rx#:[id number] Milrinone-D5w Pmx 20 mg 21.6 In Dextrose/Water 1 100ml .bag @ 0.2 MCG/KG/MIN 8. 08 mls/hr IV .[id number] ADAM Rx#:[id number] Milrinone-D5w Pmx 20 mg 72.0 In Dextrose/Water 1 100ml .bag @ 0.4 MCG/KG/MIN 16. 17 mls/hr IV .Q6H12M ADAM Rx#:[id number] Milrinone-D5w Pmx 20 mg 100 In Dextrose/Water 1 100ml .bag @ Per Protocol IV . Q0M ADAM Rx#:[id number] Norepinephrine 16 mg In 31.987 Sodium Chloride 0.9% 250 ml @ Titrate IV .Q0M ADAM Rx#:[id number] Piperacillin-Tazobactam 3 62.5 50.0 .375 gm In Dextrose/Water 1 50ml.bag @ 12.5 mls/hr IVPB Q8HR ADAM Rx#: [id number] Propofol 500 mg In Empty 50 100.24 100.000 Bag 1 bag @ Titrate IV . Q0M ADAM Rx#:[id number] Vancomycin 2,000 mg In 501 167 Sodium Chloride 0.9% 500 ml @ 167 mls/hr IVPB Q16H ADAM Rx#:[id number] Oral 0 Tube Feeding 40 Blood Product 620 250 Rc As-1 Unit 310 [id number] Rc Cpda-1 Unit 250 [id number] Other 90 Output: Chest Tube Drainage 320 290 150 Left Pleural 60 70 70 Mediastinal 120 100 20 Right Pleural 140 120 60 Gastric Drainage 125 Drainage 10 Right Calf 10 Urine 7880 641 5806 Other: Voiding Method Indwelling Catheter Indwelling Catheter Indwelling Catheter ABP, PAP, CO, CI - Last Documented Arterial Blood Pressure 110/47 Pulmonary Artery Pressure 37/18 Cardiac Output 5.6 Cardiac Index 2.4 - Exam GENERAL EXAM: Patient debated and sedated HEENT: Normocephalic. Normal reaction of pupils, equal size, normal range of extraocular motion. No erythema or exudates in the throat. NECK: No masses, no nuchal rigidity. CHEST: No chest wall deformity. LUNGS: Diminished breath sounds HEART: S1 and S2 normal and distant heart sounds.. ABDOMEN: No hepatosplenomegaly, normal bowel sounds, no guarding or rigidity. SKIN: No rashes CENTRAL NERVOUS SYSTEM: No focal deficits. EXTREMITIES: No cyanosis, clubbing or edema. - Labs CBC & Chem 7: 04/21/16 15:00 04/21/16 15:00 Labs: Abnormal Lab Results - Last 24 Hours (Table) 04/20/16 04/20/16 04/20/16 Range/Units 07:45 15:46 18:17 RBC (4.30-5.90) m/uL Hgb (13.0-17.5) gm/dL Hct (39.0-53.0) % Plt Count (150-450) k/uL ABG pO2 (83-108) mmHg ABG Total CO2 (19-24) mmol/L Chloride (98-107) mmol/L BUN (9-20) mg/dL Glucose (74-99) mg/dL POC Glucose (mg/dL) 117 H 121 H (75-99) mg/dL Calcium (8.4-10.2) mg/dL Magnesium (1.6-2.3) mg/dL Total Protein (6.3-8.2) g/dL Albumin (3.5-5.0) g/dL Crossmatch See Detail 04/20/16 04/20/16 04/20/16 Range/Units 20:06 20:10 22:09 RBC (4.30-5.90) m/uL Hgb (13.0-17.5) gm/dL Hct (39.0-53.0) % Plt Count (150-450) k/uL ABG pO2 (83-108) mmHg ABG Total CO2 (19-24) mmol/L Chloride (98-107) mmol/L BUN 26 H (9-20) mg/dL Glucose 112 H (74-99) mg/dL POC Glucose (mg/dL) 125 H 111 H (75-99) mg/dL Calcium 7.7 L (8.4-10.2) mg/dL Magnesium (1.6-2.3) mg/dL Total Protein (6.3-8.2) g/dL Albumin (3.5-5.0) g/dL Crossmatch 04/20/16 04/20/16 04/21/16 Range/Units 23:14 23:59 02:35 RBC (4.30-5.90) m/uL Hgb (13.0-17.5) gm/dL Hct (39.0-53.0) % Plt Count (150-450) k/uL ABG pO2 (83-108) mmHg ABG Total CO2 (19-24) mmol/L Chloride (98-107) mmol/L BUN (9-20) mg/dL Glucose (74-99) mg/dL POC Glucose (mg/dL) 121 H 124 H 118 H (75-99) mg/dL Calcium (8.4-10.2) mg/dL Magnesium (1.6-2.3) mg/dL Total Protein (6.3-8.2) g/dL Albumin (3.5-5.0) g/dL Crossmatch 04/21/16 04/21/16 04/21/16 Range/Units 04:24 04:29 04:29 RBC 2.28 L (4.30-5.90) m/uL Hgb 6.8 L* (13.0-17.5) gm/dL Hct 20.5 L (39.0-53.0) % Plt Count 85 L (150-450) k/uL ABG pO2 (83-108) mmHg ABG Total CO2 (19-24) mmol/L Chloride 108 H (98-107) mmol/L BUN 26 H (9-20) mg/dL Glucose 100 H (74-99) mg/dL POC Glucose (mg/dL) 108 H (75-99) mg/dL Calcium 7.6 L (8.4-10.2) mg/dL Magnesium 2.4 H (1.6-2.3) mg/dL Total Protein 4.1 L (6.3-8.2) g/dL Albumin 2.3 L (3.5-5.0) g/dL Crossmatch 04/21/16 04/21/16 04/21/16 Range/Units 05:08 05:13 06:16 RBC (4.30-5.90) m/uL Hgb (13.0-17.5) gm/dL Hct (39.0-53.0) % Plt Count (150-450) k/uL ABG pO2 82 L (83-108) mmHg ABG Total CO2 25 H (19-24) mmol/L Chloride (98-107) mmol/L BUN (9-20) mg/dL Glucose (74-99) mg/dL POC Glucose (mg/dL) 116 H 124 H (75-99) mg/dL Calcium (8.4-10.2) mg/dL Magnesium (1.6-2.3) mg/dL Total Protein (6.3-8.2) g/dL Albumin (3.5-5.0) g/dL Crossmatch 04/21/16 04/21/16 04/21/16 Range/Units 08:34 10:05 11:06 RBC (4.30-5.90) m/uL Hgb (13.0-17.5) gm/dL Hct (39.0-53.0) % Plt Count (150-450) k/uL ABG pO2 (83-108) mmHg ABG Total CO2 (19-24) mmol/L Chloride (98-107) mmol/L BUN (9-20) mg/dL Glucose (74-99) mg/dL POC Glucose (mg/dL) 118 H 106 H 109 H (75-99) mg/dL Calcium (8.4-10.2) mg/dL Magnesium (1.6-2.3) mg/dL Total Protein (6.3-8.2) g/dL Albumin (3.5-5.0) g/dL Crossmatch 04/21/16 04/21/16 04/21/16 Range/Units 11:59 12:58 14:01 RBC (4.30-5.90) m/uL Hgb (13.0-17.5) gm/dL Hct (39.0-53.0) % Plt Count (150-450) k/uL ABG pO2 (83-108) mmHg ABG Total CO2 (19-24) mmol/L Chloride (98-107) mmol/L BUN (9-20) mg/dL Glucose (74-99) mg/dL POC Glucose (mg/dL) 120 H 109 H 115 H (75-99) mg/dL Calcium (8.4-10.2) mg/dL Magnesium (1.6-2.3) mg/dL Total Protein (6.3-8.2) g/dL Albumin (3.5-5.0) g/dL Crossmatch 04/21/16 04/21/16 Range/Units 15:00 15:02 RBC 2.56 L (4.30-5.90) m/uL Hgb 7.6 L (13.0-17.5) gm/dL Hct 23.6 L (39.0-53.0) % Plt Count 84 L (150-450) k/uL ABG pO2 (83-108) mmHg ABG Total CO2 (19-24) mmol/L Chloride (98-107) mmol/L BUN (9-20) mg/dL Glucose (74-99) mg/dL POC Glucose (mg/dL) 109 H (75-99) mg/dL Calcium (8.4-10.2) mg/dL Magnesium (1.6-2.3) mg/dL Total Protein (6.3-8.2) g/dL Albumin (3.5-5.0) g/dL Crossmatch Microbiology - Last 24 Hours (Table) 04/20/16 23:39 Gram Stain - Preliminary Sputum Sputum Culture - Preliminary 04/20/16 10:30 Gram Stain - Preliminary Bronchoalviolar Lavage - Right Bronchial Washings Culture - Preliminary 04/20/16 10:30 Fungal Culture - Preliminary Bronchoalviolar Lavage - Right 04/20/16 10:30 Acid Fast Bacilli Culture - Preliminary Bronchoalviolar Lavage - Right Assessment and Plan (1) Status post aorto-coronary artery bypass graft Status: Acute (2) NSTEMI (non-ST elevated myocardial infarction) Status: Acute (3) Cardiomyopathy Status: Acute Plan: Continue the supportive care and also possible bronchoscopy today. Patient is currently on Primacor. Patient has received blood transfusion for anemia in the past. He is known to have poor ejection fraction: May consider repeating echocardiogram next week
[2016-04-21 16:00] LABS: Glucose,Whole Blood 119 mg/dL (75-99)
[2016-04-21 17:27] LABS: Glucose,Whole Blood 131 mg/dL (75-99)
[2016-04-21 17:34] LABS: ABG Base Excess 0.7 mmol/L; ABG HCO3 23 mmol/L (21-25); ABG PCO2 33 mmHg (35-45); ABG PH 7.46 (7.35-7.45); ABG PO2 50 mmHg (83-108); ABG TCO2 24 mmol/L (19-24)
--- NOTE | 2016-04-21 17:50 | XR ---
EXAMINATION TYPE: XR chest 1V portable DATE OF EXAM: 04/21/2016 5:39 PM COMPARISON: Today HISTORY: Short of breath TECHNIQUE: Single frontal view of the chest is obtained. FINDINGS: Endotracheal tube is in good position. There is a nasogastric tube. There is a right jugul ar catheter with the tip not well seen but probably in the right ventricle. There are bilateral chest tubes. There is no sign of a pneumothorax. There is pleural thickening at the right lung apex. Thora cic aorta is atheromatous. IMPRESSION: There is increasing pleural thickening in the right upper lung field compared to the exa m this morning and consistent with pleural fluid. No pneumothorax. Mild pulmonary congestion.
[2016-04-21 18:10] LABS: Glucose,Whole Blood 113 mg/dL (75-99)
[2016-04-21 20:02] LABS: Glucose,Whole Blood 126 mg/dL (75-99)
[2016-04-21] MEDS: SENNOSIDES-DOCUSATE SODIUM 1 EACH TAB PO SCH (20:24)
[2016-04-22] MEDS: HEPARIN SODIUM,PORCINE 5,000 UNIT/ML 1 ML VIAL SQ SCH ×3 (00:07→16:15)
[2016-04-22] MEDS: PIPERACILLIN-TAZOBACTAM 3.375 GM in DEXTROSE/WATER 1 50ML.BAG IVPB SCH ×3 (00:08→16:18)
[2016-04-22] MEDS: PROPOFOL 500 MG in EMPTY BAG 1 BAG IV SCH ×8 (00:11→22:49)
[2016-04-22] MEDS: IPRATROPIUM-ALBUTEROL 3 ML NEB INHALATION SCH ×6 (03:27→23:11)
[2016-04-22] MEDS ORDERED: VANCOMYCIN TROUGH DUE 1 EACH MISC MISCELLANE ONE (05:30)
[2016-04-22 05:35] LABS: ABG Base Excess -0.9 mmol/L; ABG HCO3 24 mmol/L (21-25); ABG PCO2 41 mmHg (35-45); ABG PH 7.38 (7.35-7.45); ABG PO2 123 mmHg (83-108); ABG TCO2 25 mmol/L (19-24)
[2016-04-22 05:36] LABS: Glucose,Whole Blood 159 mg/dL (75-99)
[2016-04-22] MEDS: MILRINONE-D5W PMX 20 MG in DEXTROSE/WATER 1 100ML.BAG IV SCH ×2 (05:40→09:26)
[2016-04-22 05:42] LABS: Basophils % (A) 0 %; CH 30.7; CHCM 33.3; Eosinophils # (A) 0.1 k/uL (0-0.7); Eosinophils % (A) 1 %; HCT 24.5 % (39.0-53.0); HDW 3.14; Luc # (Auto) 0.19; Luc % (Auto) 2; Lymphocytes # (A) 1.2 k/uL (1.0-4.8); Lymphocytes % (A) 12 %; MCH 30.2 pg (25.0-35.0); MCHC 32.6 g/dL (31.0-37.0); MCV 92.7 fL (80.0-100.0); Mean Platelet Volume 8.9; Monocytes # (A) 0.7 k/uL (0-1.0); Monocytes % (A) 7 %; Neutrophils # (A) 8.1 k/uL (1.3-7.7); Neutrophils % (A) 78 %; RBC 2.64 m/uL (4.30-5.90); RDW 14.8 % (11.5-15.5); WBC 10.5 k/uL (3.8-10.6); WBC (Perox) 10.16
[2016-04-22 05:52] LABS: Ionized Calcium 4.8 mg/dL (4.5-5.3)
[2016-04-22 06:04] LABS: ALT 38 U/L (21-72); AST 40 U/L (17-59); Alkaline Phosphatase 97 U/L (38-126); Anion Gap 10 mmol/L; Blood Urea Nitrogen 30 mg/dL (9-20); Calcium 7.7 mg/dL (8.4-10.2); Carbon Dioxide 27 mmol/L (22-30); Chloride 108 mmol/L (98-107); Glucose 143 mg/dL (74-99); Magnesium 2.3 mg/dL (1.6-2.3); Non-African American GFR(MDRD) >60 (>60 ml/min/1.73 sqM); Phosphorous 3.2 mg/dL (2.5-4.5); Potassium 4.1 mmol/L (3.5-5.1); Sodium 145 mmol/L (137-145); Total Bilirubin 0.6 mg/dL (0.2-1.3); Total Protein 4.8 g/dL (6.3-8.2)
[2016-04-22] MEDS ORDERED: INSULIN LISPRO (humaLOG) 300 UNIT/3 ML VIAL SQ SCH ×2 (07:30→12:00)
[2016-04-22] MEDS: ACETYLCYSTEINE 800 MG/4 ML VIAL INHALATION SCH ×4 (07:31→20:48)
[2016-04-22] MEDS: VANCOMYCIN 2,000 MG in SODIUM CHLORIDE 0.9% 500 ML IVPB SCH (07:51)
--- NOTE | 2016-04-22 07:53 | XR ---
EXAMINATION TYPE: XR chest 1V portable DATE OF EXAM: 04/22/2016 6:08 AM CLINICAL HISTORY: Difficulty breathing progress study. Post open cardiac surgery. TECHNIQUE: Single AP portable upright view of the chest is obtained. COMPARISON: Chest x-ray from one day earlier FINDINGS: An endotracheal tube, orogastric tube, right internal jugular [place]-Cand[place] catheter, and bila teral chest tubes are all stable in appearance. There is persistent cardiomegaly with atherosclerotic and ectatic thoracic aorta causing mass effect on the trachea deviated to the right of midline. There is bibasilar opacity consistent with small trinity ateral pleural effusions and associated bibasilar atelectasis and/or infiltrate. IMPRESSION: Overall stable findings, postsurgical changes with cardiomegaly and small bilateral ple ural effusions and associated bibasilar atelectasis and/or infiltrate all redemonstrated.
[2016-04-22] MEDS: CLOPIDOGREL 75 MG TAB PO SCH (08:08)
[2016-04-22] MEDS: PANTOPRAZOLE 40 MG/10 ML VIAL IVP SCH (08:08)
[2016-04-22] MEDS: METOPROLOL TARTRATE 25 MG TAB PO SCH ×2 (08:08→20:01)
[2016-04-22 08:30] LABS: Glucose,Whole Blood 156 mg/dL (75-99)
[2016-04-22] MEDS: BISACODYL 10 MG SUPP RECTAL PRN (08:56)
[2016-04-22] MEDS: SODIUM CHLORIDE 0.9% 99 ML with VASOPRESSIN 20 UNIT IV SCH ×2 (09:01)
[2016-04-22] MEDS: INSULIN LISPRO (humaLOG) 300 UNIT/3 ML VIAL SQ SCH ×4 (09:02→20:00)
[2016-04-22] MEDS: ASPIRIN 81 MG CHEW PO SCH (09:06)
[2016-04-22] MEDS: ATORVASTATIN 40 MG TAB PO SCH (09:06)
[2016-04-22] MEDS: CHLORHEXIDINE GLUCONATE 15 ML CUP MUCOUS MEM SCH ×2 (09:07→20:01)
--- NOTE | 2016-04-22 09:59 | P.PN ---
Progress Note - Text CV Surgery Nursing POD: #4, triple vessel coronary artery bypass grafting using the left internal mammary artery to the left anterior descending coronary artery, a reverse greater saphenous vein graft from the aorta to the early arising posterior descending coronary artery, a reverse greater saphenous vein graft from the aorta to the intramyocardial ramus intermedius artery proximally. 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 Intraoperative transesophageal echocardiogram and Epi-aortic scanning. Endoscopic vein harvesting of the right greater saphenous vein. #4 Reexploration for postoperative bleeding. Patient remains intubated with mechanical ventilator support, he is sedated on Diprivan drip at 40 mcg/kg/m. He is not following any verbal commands at this time although he does withdrawal from noxious stimuli. Vital Signs: T-max temp in the last 24 hours 100.2F Vital Signs - 24 hr 04/21/16 04/21/16 04/21/16 08:55 09:00 09:15 Temperature 98.6 F Pulse Rate 73 75 76 Respiratory 16 16 16 Rate Blood Pressure 110/57 O2 Sat by Pulse 99 99 99 Oximetry 04/21/16 04/21/16 04/21/16 09:30 09:51 10:00 Temperature 98.6 F Pulse Rate 67 74 75 Respiratory 16 16 20 Rate Blood Pressure 119/63 O2 Sat by Pulse 99 100 99 Oximetry 04/21/16 04/21/16 04/21/16 10:30 11:00 11:30 Temperature Pulse Rate 74 73 74 Respiratory 21 16 16 Rate Blood Pressure O2 Sat by Pulse 100 96 99 Oximetry 04/21/16 04/21/16 04/21/16 12:00 12:10 12:20 Temperature Pulse Rate 76 80 82 Respiratory 19 Rate Blood Pressure O2 Sat by Pulse 99 Oximetry 04/21/16 04/21/16 04/21/16 12:30 13:00 13:30 Temperature Pulse Rate 80 76 78 Respiratory 16 16 16 Rate Blood Pressure O2 Sat by Pulse 99 97 98 Oximetry 04/21/16 04/21/16 04/21/16 14:00 14:30 15:00 Temperature Pulse Rate 80 79 79 Respiratory 16 17 20 Rate Blood Pressure O2 Sat by Pulse 94 L 96 96 Oximetry 04/21/16 04/21/16 04/21/16 15:30 15:34 15:50 Temperature Pulse Rate 86 73 77 Respiratory 19 Rate Blood Pressure O2 Sat by Pulse 97 Oximetry 04/21/16 04/21/16 04/21/16 16:00 16:30 17:00 Temperature Pulse Rate 80 88 87 Respiratory 16 19 27 H Rate Blood Pressure O2 Sat by Pulse 99 95 87 L Oximetry 04/21/16 04/21/16 04/21/16 17:30 18:00 18:30 Temperature 100.2 F H Pulse Rate 88 86 88 Respiratory 18 23 30 H Rate Blood Pressure O2 Sat by Pulse 85 L 100 100 Oximetry 04/21/16 04/21/16 04/21/16 19:00 19:35 19:55 Temperature Pulse Rate 84 86 86 Respiratory 18 Rate Blood Pressure O2 Sat by Pulse 100 Oximetry 04/21/16 04/21/16 04/21/16 20:00 21:00 22:00 Temperature Pulse Rate 87 79 81 Respiratory 29 H 19 21 Rate Blood Pressure O2 Sat by Pulse 98 100 100 Oximetry 04/21/16 04/21/16 04/21/16 22:06 23:00 23:33 Temperature Pulse Rate 83 82 84 Respiratory 20 17 Rate Blood Pressure O2 Sat by Pulse 100 99 Oximetry 04/21/16 04/22/16 04/22/16 23:47 00:00 01:00 Temperature Pulse Rate 84 83 84 Respiratory 17 29 H Rate Blood Pressure O2 Sat by Pulse 98 97 Oximetry 04/22/16 04/22/16 04/22/16 02:00 03:00 03:28 Temperature Pulse Rate 85 87 85 Respiratory 17 15 Rate Blood Pressure O2 Sat by Pulse 98 98 Oximetry 04/22/16 04/22/16 04/22/16 03:48 04:00 05:00 Temperature Pulse Rate 89 84 88 Respiratory 22 21 Rate Blood Pressure O2 Sat by Pulse 99 99 Oximetry 04/22/16 04/22/16 04/22/16 06:00 07:00 08:00 Temperature Pulse Rate 88 87 87 Respiratory 19 21 17 Rate Blood Pressure O2 Sat by Pulse 97 98 99 Oximetry ABP, PAP, CO, CI - Last 8 Hours Arterial Blood Pressure 129/56 Arterial Blood Pressure 124/55 Arterial Blood Pressure 102/49 Arterial Blood Pressure 131/56 Arterial Blood Pressure 141/71 Arterial Blood Pressure 108/53 Arterial Blood Pressure 100/53 Arterial Blood Pressure 110/55 Pulmonary Artery Pressure 41/22 Pulmonary Artery Pressure 40/21 Pulmonary Artery Pressure 43/23 Pulmonary Artery Pressure 39/27 Pulmonary Artery Pressure 56/36 Pulmonary Artery Pressure 41/25 Pulmonary Artery Pressure 39/26 Pulmonary Artery Pressure 42/25 Cardiac Output 7.5 Cardiac Output 5.8 Cardiac Output 5.8 Cardiac Output 5.8 Cardiac Output 5.8 Cardiac Output 6.3 Cardiac Output 6.3 Cardiac Output 6.3 Cardiac Index 3.2 Cardiac Index 2.5 Labs: Short CBC 04/21/16 04/22/16 Range/Units 15:00 05:30 WBC 9.7 10.5 (3.8-10.6) k/uL Hgb 7.6 L 8.0 L (13.0-17.5) gm/dL Hct 23.6 L 24.5 L (39.0-53.0) % Plt Count 84 L 111 L (150-450) k/uL Neutrophils # 8.1 H (1.3-7.7) k/uL BMP 04/21/16 04/21/16 04/21/16 11:58 15:00 20:58 Sodium Potassium 3.9 3.9 4.2 Chloride Carbon Dioxide BUN Creatinine Glucose Calcium 04/22/16 05:30 Sodium 145 Potassium 4.1 Chloride 108 H Carbon Dioxide 27 BUN 30 H Creatinine 1.02 Glucose 143 H Calcium 7.7 L Liver Function 04/22/16 Range/Units 05:30 Total Bilirubin 0.6 (0.2-1.3) mg/dL AST 40 (17-59) U/L ALT 38 (21-72) U/L Alkaline Phosphatase 97 (38-126) U/L Albumin 2.5 L (3.5-5.0) g/dL Most recent lab results ABG pH 7.38 (7.35-7.45) 04/22/16 05:23 ABG pCO2 41 mmHg (35-45) 04/22/16 05:23 ABG pO2 123 mmHg (83-108) H 04/22/16 05:23 ABG HCO3 24 mmol/L (21-25) 04/22/16 05:23 ABG O2 Saturation 99.0 % (94-97) H 04/22/16 05:23 Calcium 7.7 mg/dL (8.4-10.2) L 04/22/16 05:30 Phosphorus 3.2 mg/dL (2.5-4.5) 04/22/16 05:30 Magnesium 2.3 mg/dL (1.6-2.3) 04/22/16 05:30 ABG ABG pH 7.38 (7.35-7.45) 04/22/16 05:23 ABG pCO2 41 mmHg (35-45) 04/22/16 05:23 ABG pO2 123 mmHg (83-108) H 04/22/16 05:23 ABG O2 Saturation 99.0 % (94-97) H 04/22/16 05:23 PT/INR, D-dimer PT 11.3 sec (9.0-12.0) 04/20/16 04:00 INR 1.1 (<1.1) 04/20/16 04:00 D-Dimer 0.73 mg/L FEU (<0.60) H 04/13/16 10:43 Microbiology 04/20/16 10:30 Bronchoalviolar Lavage - Right Acid Fast Bacilli Smear - Final 04/20/16 10:30 Bronchoalviolar Lavage - Right Acid Fast Bacilli Culture - Preliminary 04/20/16 23:39 Sputum Gram Stain - Preliminary 04/20/16 23:39 Sputum Sputum Culture - Preliminary 04/20/16 10:30 Bronchoalviolar Lavage - Right Gram Stain - Preliminary 04/20/16 10:30 Bronchoalviolar Lavage - Right Bronchial Washings Culture - Preliminary 04/20/16 10:30 Bronchoalviolar Lavage - Right Fungal Culture - Preliminary 04/17/16 14:28 Urine,Clean Catch Urine Culture - Final 04/15/16 18:00 Nasal Swab Nasal Culture - Final IV Fluids: Lactated Ringer's at 30 mL/h Primacor drip at 0.3 mcg/kg/m Diprivan drip at 40 mcg/kg/m Cardiac output: 7.5 Cardiac index: 3.2 Pulmonary artery pressures: 35/19 CVP: 10 Lungs: Few scattered rhonchi throughout, diminished bilateral bases right greater than left. Respirations are unlabored with mechanical ventilator support. Audible endotracheal tube cuff leak. Current ventilator settings are as follows: AC 16, TV 550, FiO2 50%, PEEP 12. Current peak pressures 23, plateau pressures 21. O2 sat: 99% with mechanical ventilator support current FiO2 setting is 50%. Heart: S1S2, regular rhythm and rate, negative for murmur, S3 or gallop. Bedside telemetry showing normal sinus rhythm with rare PVC, heart rate 84. Sternum stable, chest incision clean with silverlon dressing clean and dry. Heart hugger in place. Right leg incisions clean dry and well approximated. DOTTIE drain remains in place , 15 mL output in the DOTTIE drain in the last 24 hours. Knee-high KARON hose and sequential compression devices in place to bilateral lower extremities.. Abdomen: Soft, Positive bowel sounds present in all 4 quadrants, OG tube in place with vital high-protein infusing at 50 mL hour with a cold rate of 70 mL per hour. Automatic water flushes 30 mL every 4 hours. CBGs: 113-159 mg/dL in the last 24 hours. U/O: Adequate, Nava catheter for accurate I&O. 550 mL output in the last 8 hours. Chest Tubes: Left pleural chest tube without air leak, remains to continuous wall suction at -20 cm H2O. 100 mL output in the last 8 hours, 230 mL output in the last 24 hours. Right pleural chest tube without air leak, remains to continuous wall suction at -20 cm H2O. 60 mL output in the last 8 hours, 250 mL output in the last 24 hours. 24 hr Total: Intake & Output 04/20/16 04/21/16 04/22/16 04/23/16 06:59 06:59 06:59 06:59 Intake Total 2628.021 4249.541 3091.029 382 Output Total 1800 2221 3175 105 Balance 209.394 8598.541 -83.971 277 Weight 130 kg 134.8 kg 134.8 kg 134.8 kg Active Medications Generic Name Dose Route Start Last Admin Trade Name Freq PRN Reason Stop Dose Admin Acetaminophen 650 mg 04/20/16 19:38 Tylenol Tab PO Q6HR PRN Fever and/ or Pain Acetaminophen/Hydrocodone Bitart 2 each 04/19/16 14:56 04/21/16 10:25 [place] 5-325 PO 2 each Q4HR PRN Administration Severe Pain Acetaminophen/Hydrocodone Bitart 1 each 04/19/16 14:56 [place] 5-325 PO Q4HR PRN Moderate Pain Acetylcysteine 200 mg 04/19/16 00:00 04/21/16 19:27 Mucomyst INHALATION 200 mg RT-QID ADAM Administration Albuterol/Ipratropium 3 ml 04/18/16 16:00 04/22/16 03:27 Duoneb 0.5 Mg-3 Mg/3 Ml Soln INHALATION 3 ml RT-Q4H ADAM Administration Albuterol/Ipratropium 3 ml 04/19/16 14:59 Duoneb 0.5 Mg-3 Mg/3 Ml Soln INHALATION RT-Q2H PRN Shortness Of Breath Or Wheezing Aspirin 81 mg 04/20/16 09:00 04/22/16 09:06 Aspirin PO 81 mg DAILY ADAM Administration Atorvastatin Calcium 40 mg 04/19/16 09:00 04/22/16 09:06 Lipitor PO 40 mg DAILY ADAM Administration Bisacodyl 10 mg 04/19/16 14:58 04/22/16 08:56 Dulcolax RECTAL 10 mg DAILY PRN Administration Constipation Chlorhexidine Gluconate 15 ml 04/20/16 22:30 04/22/16 09:07 Peridex MUCOUS MEM 15 ml BID ADAM Administration Clopidogrel Bisulfate 75 mg 04/20/16 09:00 04/22/16 08:08 Plavix PO 75 mg DAILY ADAM Administration Heparin Sodium (Porcine) 5,000 unit 04/19/16 16:00 04/22/16 09:02 Heparin SQ 5,000 unit Q8HR ADAM Administration Lactated Ringer's 1,000 mls @ 30 mls/hr 04/18/16 15:00 04/21/16 15:15 Lactated Ringers IV 30 mls/hr .Q24H AADM Administration Propofol 500 mg/ IV Solution 50 mls @ 0 mls/hr 04/18/16 15:00 04/22/16 07:51 IV 50 mcg/kg/min .Q0M ADAM 35.94 mls/hr Protocol Administration Titrate Vasopressin 20 unit/ Sodium 100 mls @ 9 mls/hr 04/18/16 14:45 04/22/16 09:01 Chloride IV Not Given .Q11H7M ADAM Protocol 0.03 UNITS/MIN Piperacillin/Tazobactam/ 50 mls @ 12.5 mls/hr 04/20/16 10:45 04/22/16 09:03 Dextrose 3.375 gm/ IV Solution IVPB 12.5 mls/hr Q8HR ADAM Administration Vancomycin HCl 2,000 mg/ 500 mls @ 167 mls/hr 04/20/16 22:00 04/22/16 07:51 Sodium Chloride IVPB 167 mls/hr Q16H ADAM Administration Phenylephrine HCl 40 mg/ 254 mls @ 0 mls/hr 04/21/16 08:00 Sodium Chloride IV .Q0M ADAM Protocol Titrate Milrinone Lactate/Dextrose 20 100 mls @ 12.13 mls/hr 04/21/16 15:31 04/22/16 05:40 mg/ IV Solution IV 0.3 mcg/kg/min .Q8H15M ADAM 12.13 mls/hr 0.3 MCG/KG/MIN Administration Insulin Human Lispro 0 unit 04/22/16 08:30 04/22/16 09:02 Humalog SQ 2 unit Q4HR ADAM Administration Protocol Magnesium Hydroxide 2,400 mg 04/19/16 14:58 Milk Of Magnesia PO BID PRN Constipation Metoprolol Tartrate 25 mg 04/21/16 09:00 04/22/16 08:08 Lopressor PO 25 mg BID ADAM Administration Miscellaneous Information 1 each 04/18/16 14:58 Magnesium Per Protocol MISCELLANE DAILY PRN Per Protocol Protocol Miscellaneous Information 1 each 04/18/16 14:58 Phosphorus Per Protocol MISCELLANE DAILY PRN Per Protocol Protocol Miscellaneous Information 1 each 04/18/16 14:58 Potassium Per Protocol MISCELLANE DAILY PRN Per Protocol Protocol Morphine Sulfate 2 mg 04/18/16 14:51 Morphine Sulfate (Inj) IVP Q2H PRN Severe Pain Ondansetron HCl 4 mg 04/18/16 14:58 Zofran IVP Q6HR PRN Nausea And Vomiting Pantoprazole Sodium 40 mg 04/19/16 09:00 04/22/16 08:08 Protonix IVP 40 mg DAILY ADAM Administration Senna/Docusate Sodium 2 each 04/19/16 21:00 04/21/16 20:24 Senokot-S PO 2 each HS ADAM Administration Sodium Chloride 10 ml 04/18/16 21:00 04/22/16 08:08 Saline Flush IV 10 ml BID ADAM Administration Plan: Per Dr. Casey, the patient's Primacor will be turned down to 0.15 mcg/kg/ m. He will be started on Lasix 40 mg IV every 12 hours 4 doses and potassium chloride 20 mEq every 12 hours 4 doses. His PEEP on the mechanical ventilator will be decreased to 8 with a repeat ABG in 2-[address] Sales from pulmonary medicine will perform a repeat bronchoscopy this morning with ET tube repositioning. Continue to advance tube feedings to goal rate.
[2016-04-22] MEDS: POTASSIUM CHLORIDE ORAL LIQUID 40 MEQ/30 ML CUP PO SCH ×2 (10:45→20:02)
[2016-04-22] MEDS: FUROSEMIDE 10 MG/ML 4 ML VIAL IV SCH ×2 (10:49→20:01)
--- NOTE | 2016-04-22 11:32 | PCN ---
DATE OF PROCEDURE: PROCEDURE PERFORMED: Bronchoscopy therapeutic airway suctioning of the right lower lobe. PREOPERATIVE DIAGNOSES: Right lower lobe atelectasis/pneumonia/mucous plugs. POSTOPERATIVE DIAGNOSES: Right lower lobe atelectasis/pneumonia/mucous plugs. This procedure was done in the Intensive Care Unit. The patient was briefly placed on 100% FiO2. Using a flexible bronchoscope, an adapter was attached to the orotracheal tube and while the patient being ventilated and oxygenated, the flexible bronchoscope was introduced into the orotracheal tube and was advanced into the lower trachea. Again, copious amounts of respiratory secretions were purulent and were identified in the distal trachea. Therapeutic airway suctioning was done. Airway inspection was completed and there was again similar amount of copious purulent material occupying the right mainstem bronchus, right lower lobe bronchus and the bronchus intermedius. Therapeutic airway suctioning was done. Respiratory secretions were all taken out. Saline was infused to irrigate the different segments of the lower lobe and therapeutic airway suctioning was performed. At of the procedure, the airways were essentially patent and free of any respiratory secretions. The bronchoscope was removed and the procedure was terminated.
--- NOTE | 2016-04-22 12:10 | P.PN ---
Subjective Principal diagnosis: Coronary artery disease, triple vessel, severe left ventricular dysfunction This 76-year-old male patient , post 3 vessel bypass surgery including PHMA to LAD saphenous vein graft to diagonal and ramus branches and aortic valve replacement was currently back in the intensive care unit and the patient is postop day 1. Note that the patient was taken back to the operating room after he arrived the ICU. The patient was having bleeding from his mediastinal chest tubes. Further examination was done and the bleeding site was identified and the local hemostasis was achieved and following that the patient was brought back to the intensive care unit. Overnight, the patient remains on a mechanical ventilator and he remains sedated with Diprivan. He was gradually taken off the vasopressin drip and the Gal-Synephrine drip and both are discontinued. Currently is on 8 mics of norepinephrine infusion and Primacor. He is hemodynamically stable. He remains on a mechanical ventilator and his series of chest x-rays that was done postop showed a partial atelectasis of the right upper lobe which subsequently improved. Morning's chest x-ray showed adequate expansion of the right upper lobe area and there is probably some small better pleural effusion. ET tube is in a good location. The patient has a [place] catheter in place. There aren't pleural and mediastinal chest tubes are all in place. On the mechanical ventilator, the patient is on a assist-control mode at the rate of 20, tidal volume of 650, FiO2 of 80% and PEEP of 12. He is having some air leak within the mediastinal chest tube. Output however has improved and there is evidence of any acute bleeding. Hemoglobin is stable for now. On 04/20/2016 the patient is being seen in follow-up. The patient is still intubated on mechanical ventilator. He is an assist-control mode with a tidal volume that was dropped down to 550 and the rate of 20 with a PEEP of 8 and FiO2 of 50%. Blood gases from earlier this morning showed a component of respiratory alkalosis with a pH of 7.53 and a pCO2 of 27 and pO2 of 80. The patient demonstrated right lower lobe atelectasis on today's chest x-ray. It acutely remains in a good location. All of the chest tubes are still in place. The patient is still having air leak for the mediastinal tube. Total amount of output from old the chest tubes have been 150 mL over the past 8 hours. Hemoglobin has dropped down to 6.8 and the patient is receiving a unit of packed RBC. Otherwise no chills. No fever. No hypotension. No leukocytosis. Based on the x-ray findings, I performed a bronchoscopy on this patient and copious amount of purulent discharge secretions were identified in the right lower lobe and the bronchus intermedius. Therapeutic airway suctioning was done. The pertinent rest or secretions were sent out for cultures. Therapeutic airway washing was done. The patient was started on broad-spectrum antibiotics and he was covered with a combination of Zosyn and vancomycin. Hemodynamically, the patient was taken off the pressors. He is off the norepinephrine infusion. He is still on Primacor. He has adequate urine output and adequate cardiac output at this point. On the patient is being seen in follow-up. The patient is still has consolidation/atelectasis of the right lower lobe. There is significant volume loss on his chest x-ray. He remains on a same vent setting which includes an assist-control of 16, tidal volume of 550, FiO2 of 50% and a PEEP of 8. The blood gases showed a pH of 7.42 with a pCO2 of 37 and pO2 of 82. The patient is hemodynamically stable. He is off norepinephrine infusion. He is still on Primacor at the rate of 0.4 mics and his most recent cardiac index is at 1.8. The [facility] chest tubes are out and the patient has right pleural and left pleural chest tubes. He was bronchoscoped yesterday and copious amount of rest or secretions were suctioned from his right lung. The cultures are pending for now and meanwhile the Gram stain is shown gram-positive cocci. The patient was having on and off fever yesterday and his blood pressure was fluctuating with occasional episodes of hypotension. Episodically was requiring brief pressors and currently off norepinephrine infusion. Antibiotic coverage including a combination of Zosyn and vancomycin. He is sedated with Diprivan. A brief sedation holiday was given and he follows commands and his mentation is appropriate at this point. He is on insulin drip for blood sugar control. He' ll be initiated on tube feeds today. On 04/22/2016, the patient is being seen in follow-up. Overnight he was having some difficulties with his oxygenation. Based on this, some vent changes were performed. Note that the chest x-ray had shown further atelectasis of the right upper lobe and based on that I put the patient a PEEP of 12 and A tidal volume of 550 and the rate of 16 with an FiO2 ranging between 50-100%. He subsequently improved. This morning, there was expression of the right upper lobe. Right lower lobe was somewhat atelectatic and based on that I performed another bronchoscopy. During the bronchoscopy DVT was found to be high in the trachea and was pushed back again and was advanced and positioned at 2 cm above the shanice. Copious amount of thick purulent mucous plugs was suctioned again. The previously obtain samples from the lungs are still not showing any microbial growth and the patient is still in the correlation of Zosyn and vancomycin. Medically he is doing well this morning. No hypotension. No fever. No signs of ongoing septicemia. He is producing a review amount of output. He is on a low-dose Primacor for cardiac augmentation. The pleural chest tubes are both in place. The [place] catheter is also in place. He is receiving tube feeds. Objective - Vital Signs Vital signs: Vital Signs Temp 100.2 F H 04/21/16 18:00 Pulse 78 04/22/16 11:00 Resp 19 04/22/16 11:00 BP 119/63 04/21/16 09:51 Pulse Ox 98 04/22/16 11:00 Intake & Output 04/21/16 04/22/16 04/22/16 18:59 06:59 18:59 Intake Total 5256.479 5945.07 938.726 Output Total 2260 915 765 Balance -282.041 198.07 173.726 Weight 134.8 kg 134.8 kg Intake: IV 701 606 260 .9NS Cardiac Output 150 90 40 0.9NS Pressure Bag 132 156 60 Lactated Ringers 1,000 ml 360 360 110 @ 30 mls/hr IV .Q24H ADAM Rx#:[id number] Piperacillin-Tazobactam 3 50 .375 gm In Dextrose/Water 1 50ml.bag @ 12.5 mls/hr IVPB Q8HR ADAM Rx#: [id number] Primacor 9 Intake, IV Titration 846.959 307.07 463.726 Amount Insulin Regular 100 unit 1.919 In Sodium Chloride 0.9% 100 ml @ Per Protocol IV .Q0M ADAM Rx#:[id number] Milrinone-D5w Pmx 20 mg 21.6 In Dextrose/Water 1 100ml .bag @ 0.2 MCG/KG/MIN 8. 08 mls/hr IV .Q56S20A ADAM Rx#:[id number] Milrinone-D5w Pmx 20 mg 32.4 110.8 49.531 In Dextrose/Water 1 100ml .bag @ 0.3 MCG/KG/MIN 12. 13 mls/hr IV .Q8H15M ADAM Rx#:[id number] Milrinone-D5w Pmx 20 mg 72.0 In Dextrose/Water 1 100ml .bag @ 0.4 MCG/KG/MIN 16. 17 mls/hr IV .Q6H12M ADAM Rx#:[id number] Piperacillin-Tazobactam 3 87.5 62.5 .375 gm In Dextrose/Water 1 50ml.bag @ 12.5 mls/hr IVPB Q8HR ADAM Rx#: [id number] Propofol 500 mg In Empty 130.540 133.77 164.195 Bag 1 bag @ Titrate IV . Q0M ADAM Rx#:[id number] Vancomycin 2,000 mg In 501 250 Sodium Chloride 0.9% 500 ml @ 167 mls/hr IVPB Q16H ADAM Rx#:[id number] Tube Feeding 60 200 215 Blood Product 250 Rc Cpda-1 Unit 250 [id number] Other 120 Output: Chest Tube Drainage 220 180 100 Left Pleural 120 90 40 Mediastinal 20 Right Pleural 80 90 60 Gastric Drainage 125 Drainage 15 0 15 Right Calf 15 0 15 Urine 1900 735 650 Other: Voiding Method Indwelling Catheter Indwelling Catheter Indwelling Catheter ABP, PAP, CO, CI - Last Documented Arterial Blood Pressure 110/52 Pulmonary Artery Pressure 34/28 Cardiac Output 7.5 Cardiac Index 3.2 - Exam Intubated on the mechanical ventilator., Comfortable sedated with Diprivan.Head exam was generally normal. There was no scleral icterus or corneal arcus. Mucous membranes were moist. Neck is supple there is a right [place] catheter in place. No goiter or neck masses. Lungs are diminished bilaterally otherwise there is some few scattered expiratory wheezes. Heart sounds are regular, positive S1-S2 along with that there is a cardiac rub. Chest tubes are all in good location.Abdominal exam revealed normal bowel sounds. The abdomen was soft, non-tender, and without masses, organomegaly, or appreciable enlargement of the abdominal aorta. Extremities showed diminished pulses and there is no cyanosis or clubbing at this point. Neurologically the patient is sedated. - Labs CBC & Chem 7: 04/22/16 05:30 04/22/16 05:30 Labs: Abnormal Lab Results - Last 24 Hours (Table) 04/21/16 04/21/16 04/21/16 Range/Units 12:58 14:01 15:00 RBC 2.56 L (4.30-5.90) m/uL Hgb 7.6 L (13.0-17.5) gm/dL Hct 23.6 L (39.0-53.0) % Plt Count 84 L (150-450) k/uL Neutrophils # (1.3-7.7) k/uL ABG pH (7.35-7.45) ABG pCO2 (35-45) mmHg ABG pO2 (83-108) mmHg ABG Total CO2 (19-24) mmol/L ABG O2 Saturation (94-97) % Chloride (98-107) mmol/L BUN (9-20) mg/dL Glucose (74-99) mg/dL POC Glucose (mg/dL) 109 H 115 H (75-99) mg/dL Calcium (8.4-10.2) mg/dL Total Protein (6.3-8.2) g/dL Albumin (3.5-5.0) g/dL 04/21/16 04/21/16 04/21/16 Range/Units 15:02 15:59 17:22 RBC (4.30-5.90) m/uL Hgb (13.0-17.5) gm/dL Hct (39.0-53.0) % Plt Count (150-450) k/uL Neutrophils # (1.3-7.7) k/uL ABG pH 7.46 H (7.35-7.45) ABG pCO2 33 L (35-45) mmHg ABG pO2 50 L (83-108) mmHg ABG Total CO2 (19-24) mmol/L ABG O2 Saturation 87.0 L (94-97) % Chloride (98-107) mmol/L BUN (9-20) mg/dL Glucose (74-99) mg/dL POC Glucose (mg/dL) 109 H 119 H (75-99) mg/dL Calcium (8.4-10.2) mg/dL Total Protein (6.3-8.2) g/dL Albumin (3.5-5.0) g/dL 04/21/16 04/21/16 04/21/16 Range/Units 17:23 18:09 20:00 RBC (4.30-5.90) m/uL Hgb (13.0-17.5) gm/dL Hct (39.0-53.0) % Plt Count (150-450) k/uL Neutrophils # (1.3-7.7) k/uL ABG pH (7.35-7.45) ABG pCO2 (35-45) mmHg ABG pO2 (83-108) mmHg ABG Total CO2 (19-24) mmol/L ABG O2 Saturation (94-97) % Chloride (98-107) mmol/L BUN (9-20) mg/dL Glucose (74-99) mg/dL POC Glucose (mg/dL) 131 H 113 H 126 H (75-99) mg/dL Calcium (8.4-10.2) mg/dL Total Protein (6.3-8.2) g/dL Albumin (3.5-5.0) g/dL 04/22/16 04/22/16 04/22/16 Range/Units 05:23 05:30 05:30 RBC 2.64 L (4.30-5.90) m/uL Hgb 8.0 L (13.0-17.5) gm/dL Hct 24.5 L (39.0-53.0) % Plt Count 111 L (150-450) k/uL Neutrophils # 8.1 H (1.3-7.7) k/uL ABG pH (7.35-7.45) ABG pCO2 (35-45) mmHg ABG pO2 123 H (83-108) mmHg ABG Total CO2 25 H (19-24) mmol/L ABG O2 Saturation 99.0 H (94-97) % Chloride 108 H (98-107) mmol/L BUN 30 H (9-20) mg/dL Glucose 143 H (74-99) mg/dL POC Glucose (mg/dL) (75-99) mg/dL Calcium 7.7 L (8.4-10.2) mg/dL Total Protein 4.8 L (6.3-8.2) g/dL Albumin 2.5 L (3.5-5.0) g/dL 04/22/16 04/22/16 Range/Units 05:34 08:24 RBC (4.30-5.90) m/uL Hgb (13.0-17.5) gm/dL Hct (39.0-53.0) % Plt Count (150-450) k/uL Neutrophils # (1.3-7.7) k/uL ABG pH (7.35-7.45) ABG pCO2 (35-45) mmHg ABG pO2 (83-108) mmHg ABG Total CO2 (19-24) mmol/L ABG O2 Saturation (94-97) % Chloride (98-107) mmol/L BUN (9-20) mg/dL Glucose (74-99) mg/dL POC Glucose (mg/dL) 159 H 156 H (75-99) mg/dL Calcium (8.4-10.2) mg/dL Total Protein (6.3-8.2) g/dL Albumin (3.5-5.0) g/dL Microbiology - Last 24 Hours (Table) 04/20/16 23:39 Gram Stain - Preliminary Sputum Sputum Culture - Preliminary 04/20/16 10:30 Gram Stain - Final Bronchoalviolar Lavage - Right Bronchial Washings Culture - Final 04/20/16 10:30 Acid Fast Bacilli Smear - Final Bronchoalviolar Lavage - Right Acid Fast Bacilli Culture - Preliminary Assessment and Plan Plan: Assessment 1 shortness of breath essentially of a cardiac in nature. 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 CTA of the chest shows changes consistent with CHF with small bilateral pleural effusion and groundglass pulmonary infiltrates consistent with interstitial edema/CHF. On 04/18/2016, the patient is being seen postop. The patient underwent three- vessel bypass surgery and aortic valve replacement. Currently intubated on mechanical ventilator. Patient is on a multitude of pressors including a combination of norepinephrine infusion, vasopressin, Gal-Synephrine and Primacor. Most recent cardiac index at 2.7. Chest tubes are all in place. On 04/19/2016, the patient is being seen in follow-up. The patient was taken to the operating room force postoperative bleeding. The patient was taken back to the operating room and the patient was found to have bleeding from the ventricular pacing wire site in the right ventricle. He was given. He dad a resternotomy after the control of bleeding and currently is still in the process of being stabilized and weaned off the mechanical ventilator. During the process, he had a partial right upper lobe collapse which seems to be expanded on today's chest x-ray. He remains on a high degree of PEEP at 12 and he is having some minor air leak through the based on the chest tube. Lungs are well expanded and there is no evidence of pneumothorax. Hemodynamically better on lower doses of norepinephrine infusion and Primacor and the patient is currently off vasopressin and Gal-Synephrine. Sedated on a mechanical ventilator. Hemoglobin is stable in addition. On 04/20/2016 the patient is suspected to have a right lower lobe pneumonia. Morning chest x-ray showed a right lower lobe atelectasis and based on that a bronchoscopy was done and there was copious amount of respiratory secretions that was purulent of buying the bronchus intermedius and the right lower lobe. Therapeutic airway suctioning was done. Bronchial washing was obtained. Samples were sent for cultures and the patient was started on a broad-spectrum antibiotics and currently is on a combination of Zosyn and vancomycin. On 04/21/2016, the patient is still on a mechanical ventilator. The patient has developed right lung pneumonia with signs of sepsis. His chest x-ray is showing volume loss and atelectatic changes in the right lung base and the bronchoscopy and the bronchioloalveolar lavage was done and copious amount of purulent respiratory secretions were aspirated from the right lung and a repeat bronchoscopy will be done today based on the presence of ongoing volume loss. Patient is covered with a combination of Zosyn and vancomycin. He has a low- grade fever. He is hemodynamically doing well without any ongoing pressor dependence. Cardiac index is at 1.8 and the patient is on Primacor and the dose is being titrated. The mediastinal chest tubes have been removed. The patient is still on 8 of PEEP and FiO2 of 50%. On 04/22/2016, the patient underwent another bronchoscopy. This is the third bronchoscopy during which thick purulent mucous plugs are being aspirated from the right lung. Airway patency was again achieved. I consulted amount of secretions in the right lung is improved compared to the earlier bronchoscopy. Patient remains on examination Zosyn and vancomycin. The PEEP has been dropped down to 8 and a weight drop it down to 5 as long as the patient's oxidation improved. The patient is hemodynamically stable. He is on low-dose Primacor to augment the cardiac output. Chest tubes are in place. [place] catheter in place and this will be removed. 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 8 osteoarthritis 9 acute kidney injury, improved 10 obesity 11 postoperative anemia the patient was given a unit of packed RBC and the current hemoglobin is up to 8 Plan Continue vent support. Repeat chest x-ray in a.m. Kept on the PEEP down to 5 specially the oxidation and oxygen saturation remains above 95%. The patient will continue same antibiotic coverage. The patient will be given a sedation holiday and the underlying mental status and the readiness to wean will be assessed and based on that will make further recommendations. I may give him on a mechanical ventilator on a 24 hours and may consider repeating the bronchoscopy to make sure there is no residual mucous plugs and if all is okay we'll proceed with participating side and possibly extubated within next 24 hours. I discussed this with the cardiac surgeons. Meanwhile, we'll continue supportive care. Remove the [place] catheter. This is a critically care evaluation that was done in 40 minutes excluding time to do any procedures. Time with Patient: Greater than 30
[2016-04-22 12:11] LABS: Glucose,Whole Blood 136 mg/dL (75-99)
[2016-04-22] MEDS: HYDROcodone/APAP 5-325MG 1 EACH TAB PO PRN ×2 (14:17→20:02)
--- NOTE | 2016-04-22 14:39 | P.PN ---
Subjective Principal diagnosis: Coronary artery disease, triple vessel, severe left ventricular dysfunction 76-year-old gentleman is admitted to the hospital with chest pain, patient was noted to have an and STEMI. Patient underwent a triple-vessel CABG and aortic valve replacement. Patient had be taken back to the or for re exploration of cardiac wall breathing. Patient is currently on pressor support. Patient is sedated and intubated and apparently was febrile overnight. Patient underwent a bedside bronchoscopy this morning. Patient is currently on empiric coverage with antibodiotics Currently titrated off vasopressor support. However continues to be on inotropic support with Primacor at 0.15 mics Patient was following commands and is moving all 4 extremities on sedation vacation. Continues to have thick oral and ET tube secretions. Patient underwent a bronchoscopy again today. lavage and thick secretions were suctioned out. Objective - Vital Signs Vital signs: Vital Signs Temp 100.2 F H 04/21/16 18:00 Pulse 83 04/22/16 14:00 Resp 20 04/22/16 14:00 BP 119/63 04/21/16 09:51 Pulse Ox 100 04/22/16 14:00 Intake & Output 04/21/16 04/22/16 04/22/16 18:59 06:59 18:59 Intake Total 2781.882 5520.07 1178.714 Output Total 2260 915 2000 Balance -282.041 198.07 -821.286 Weight 134.8 kg 134.8 kg Intake: IV 701 606 364 .9NS Cardiac Output 150 90 60 0.9NS Pressure Bag 132 156 84 Lactated Ringers 1,000 ml 360 360 170 @ 30 mls/hr IV .Q24H ADAM Rx#:[id number] Piperacillin-Tazobactam 3 50 .375 gm In Dextrose/Water 1 50ml.bag @ 12.5 mls/hr IVPB Q8HR ADAM Rx#: [id number] Primacor 9 Intake, IV Titration 846.959 307.07 469.714 Amount Insulin Regular 100 unit 1.919 In Sodium Chloride 0.9% 100 ml @ Per Protocol IV .Q0M ADAM Rx#:[id number] Milrinone-D5w Pmx 20 mg 21.6 In Dextrose/Water 1 100ml .bag @ 0.2 MCG/KG/MIN 8. 08 mls/hr IV .L10W90P ADAM Rx#:[id number] Milrinone-D5w Pmx 20 mg 32.4 110.8 49.531 In Dextrose/Water 1 100ml .bag @ 0.3 MCG/KG/MIN 12. 13 mls/hr IV .Q8H15M ADAM Rx#:[id number] Milrinone-D5w Pmx 20 mg 72.0 In Dextrose/Water 1 100ml .bag @ 0.4 MCG/KG/MIN 16. 17 mls/hr IV .Q6H12M ADAM Rx#:[id number] Piperacillin-Tazobactam 3 87.5 62.5 .375 gm In Dextrose/Water 1 50ml.bag @ 12.5 mls/hr IVPB Q8HR ADAM Rx#: [id number] Propofol 500 mg In Empty 130.540 133.77 170.183 Bag 1 bag @ Titrate IV . Q0M ADAM Rx#:[id number] Vancomycin 2,000 mg In 501 250 Sodium Chloride 0.9% 500 ml @ 167 mls/hr IVPB Q16H ADAM Rx#:[id number] Tube Feeding 60 200 315 Blood Product 250 Rc Cpda-1 Unit 250 [id number] Other 120 30 Output: Chest Tube Drainage 220 180 160 Left Pleural 120 90 80 Mediastinal 20 Right Pleural 80 90 80 Gastric Drainage 125 Drainage 15 0 15 Right Calf 15 0 15 Urine [id number] Other: Voiding Method Indwelling Catheter Indwelling Catheter Indwelling Catheter ABP, PAP, CO, CI - Last Documented Arterial Blood Pressure 132/52 Pulmonary Artery Pressure 31/25 Cardiac Output 5.7 Cardiac Index 3.0 - Exam Gen. appearance intubated and sedated Lungs diminished breath sounds Heart no murmurs appreciated S1 and S2 heart Abdomen is soft nontender organomegaly Lower extremity no edema appreciated Neurologically deferred due to as patient is sedated. - Labs CBC & Chem 7: 04/22/16 05:30 04/22/16 05:30 Labs: Abnormal Lab Results - Last 24 Hours (Table) 04/21/16 04/21/16 04/21/16 Range/Units 15:00 15:02 15:59 RBC 2.56 L (4.30-5.90) m/uL Hgb 7.6 L (13.0-17.5) gm/dL Hct 23.6 L (39.0-53.0) % Plt Count 84 L (150-450) k/uL Neutrophils # (1.3-7.7) k/uL ABG pH (7.35-7.45) ABG pCO2 (35-45) mmHg ABG pO2 (83-108) mmHg ABG Total CO2 (19-24) mmol/L ABG O2 Saturation (94-97) % Chloride (98-107) mmol/L BUN (9-20) mg/dL Glucose (74-99) mg/dL POC Glucose (mg/dL) 109 H 119 H (75-99) mg/dL Calcium (8.4-10.2) mg/dL Total Protein (6.3-8.2) g/dL Albumin (3.5-5.0) g/dL 04/21/16 04/21/16 04/21/16 Range/Units 17:22 17:23 18:09 RBC (4.30-5.90) m/uL Hgb (13.0-17.5) gm/dL Hct (39.0-53.0) % Plt Count (150-450) k/uL Neutrophils # (1.3-7.7) k/uL ABG pH 7.46 H (7.35-7.45) ABG pCO2 33 L (35-45) mmHg ABG pO2 50 L (83-108) mmHg ABG Total CO2 (19-24) mmol/L ABG O2 Saturation 87.0 L (94-97) % Chloride (98-107) mmol/L BUN (9-20) mg/dL Glucose (74-99) mg/dL POC Glucose (mg/dL) 131 H 113 H (75-99) mg/dL Calcium (8.4-10.2) mg/dL Total Protein (6.3-8.2) g/dL Albumin (3.5-5.0) g/dL 04/21/16 04/22/16 04/22/16 Range/Units 20:00 05:23 05:30 RBC (4.30-5.90) m/uL Hgb (13.0-17.5) gm/dL Hct (39.0-53.0) % Plt Count (150-450) k/uL Neutrophils # (1.3-7.7) k/uL ABG pH (7.35-7.45) ABG pCO2 (35-45) mmHg ABG pO2 123 H (83-108) mmHg ABG Total CO2 25 H (19-24) mmol/L ABG O2 Saturation 99.0 H (94-97) % Chloride 108 H (98-107) mmol/L BUN 30 H (9-20) mg/dL Glucose 143 H (74-99) mg/dL POC Glucose (mg/dL) 126 H (75-99) mg/dL Calcium 7.7 L (8.4-10.2) mg/dL Total Protein 4.8 L (6.3-8.2) g/dL Albumin 2.5 L (3.5-5.0) g/dL 04/22/16 04/22/16 04/22/16 Range/Units 05:30 05:34 08:24 RBC 2.64 L (4.30-5.90) m/uL Hgb 8.0 L (13.0-17.5) gm/dL Hct 24.5 L (39.0-53.0) % Plt Count 111 L (150-450) k/uL Neutrophils # 8.1 H (1.3-7.7) k/uL ABG pH (7.35-7.45) ABG pCO2 (35-45) mmHg ABG pO2 (83-108) mmHg ABG Total CO2 (19-24) mmol/L ABG O2 Saturation (94-97) % Chloride (98-107) mmol/L BUN (9-20) mg/dL Glucose (74-99) mg/dL POC Glucose (mg/dL) 159 H 156 H (75-99) mg/dL Calcium (8.4-10.2) mg/dL Total Protein (6.3-8.2) g/dL Albumin (3.5-5.0) g/dL 04/22/16 Range/Units 12:07 RBC (4.30-5.90) m/uL Hgb (13.0-17.5) gm/dL Hct (39.0-53.0) % Plt Count (150-450) k/uL Neutrophils # (1.3-7.7) k/uL ABG pH (7.35-7.45) ABG pCO2 (35-45) mmHg ABG pO2 (83-108) mmHg ABG Total CO2 (19-24) mmol/L ABG O2 Saturation (94-97) % Chloride (98-107) mmol/L BUN (9-20) mg/dL Glucose (74-99) mg/dL POC Glucose (mg/dL) 136 H (75-99) mg/dL Calcium (8.4-10.2) mg/dL Total Protein (6.3-8.2) g/dL Albumin (3.5-5.0) g/dL Microbiology - Last 24 Hours (Table) 04/20/16 23:39 Gram Stain - Preliminary Sputum Sputum Culture - Preliminary 04/20/16 10:30 Gram Stain - Final Bronchoalviolar Lavage - Right Bronchial Washings Culture - Final 04/20/16 10:30 Acid Fast Bacilli Smear - Final Bronchoalviolar Lavage - Right Acid Fast Bacilli Culture - Preliminary Assessment and Plan Plan: #1 acute hypoxic respiratory failure as expected from my recent cardiac surgery. #2 shock as expected from recent cardiac surgery #3 CAD #4 congestive heart failure with a preoperative ejection fraction of 20-25% #5 COPD #6 osteoporosis #7 obesity #8 acute kidney injury which is improved. #9 questionable right atrial thrombus on the echocardiogram initially #10 sepsis 11 anemia with an acute component as expected from the recent surgery Plan Into Being titrated off Primacor. Patient's O2 sats requirements have decreased. He is currently on volume control ventilation. Respiratory rate of 14 and tidal volume of 550 PEEP of 5 and FiO2 50%. hemoGlobin is stable today Pulmonary hygiene
[2016-04-22] MEDS: LACTATED RINGERS 1,000 ML IV SCH (15:21)
[2016-04-22 15:25] LABS: ABG Base Excess 0.7 mmol/L; ABG HCO3 24 mmol/L (21-25); ABG PCO2 35 mmHg (35-45); ABG PH 7.46 (7.35-7.45); ABG PO2 88 mmHg (83-108); ABG TCO2 25 mmol/L (19-24)
[2016-04-22 16:18] LABS: Glucose,Whole Blood 123 mg/dL (75-99)
[2016-04-22] MEDS ORDERED: POTASSIUM CHLORIDE ORAL LIQUID 40 MEQ/30 ML CUP NG-TUBE SCH (17:00)
[2016-04-22 20:00] LABS: Glucose,Whole Blood 139 mg/dL (75-99)
--- NOTE | 2016-04-22 20:09 | PCN ---
DATE OF PROCEDURE: PREOPERATIVE DIAGNOSIS: Right lower lobe collapse/right upper lobe collapse. POSTOPERATIVE DIAGNOSIS: Copious mucous plugs. This procedure was done in the intensive care unit. The patient was already sedated with Diprivan. An adapter was attached to the orotracheal tube and the patient was kept on mechanical ventilator on his usual vent settings. The flexible bronchoscope was advanced through the orotracheal tube and was moved to the lower trachea. It was noted that the tube was sitting high on the trachea and under direct visualization the ET tube was pushed and it was advanced and position around 2 cm above the shanice. Copious amounts of respiratory secretions were identified within the trachea that were suctioned out. The ET tube was also full of respiratory secretions and therapeutic airway suctioning was done. The bronchoscope was then advanced to the right lung and visualization of the right upper lobe bronchus intermedius, right middle lobe and right lower lobe was done. Therapeutic airway suctioning was done and the purulent respiratory secretions and mucous plugs were all suctioned out successfully without any major difficulties. Adequate airway patency was achieved. The ET tube was secured in place and the bronchoscope was removed. No bedside complications or bleeding.
[2016-04-22] MEDS: VANCOMYCIN 2,250 MG in SODIUM CHLORIDE 0.9% 500 ML IVPB SCH (22:25)
[2016-04-23] MEDS: INSULIN LISPRO (humaLOG) 300 UNIT/3 ML VIAL SQ SCH ×7 (00:11→23:51)
[2016-04-23] MEDS: HEPARIN SODIUM,PORCINE 5,000 UNIT/ML 1 ML VIAL SQ SCH ×4 (00:11→23:51)
[2016-04-23 00:12] LABS: Glucose,Whole Blood 133 mg/dL (75-99)
[2016-04-23] MEDS: PIPERACILLIN-TAZOBACTAM 3.375 GM in DEXTROSE/WATER 1 50ML.BAG IVPB SCH ×4 (00:12→23:52)
[2016-04-23] MEDS: PROPOFOL 500 MG in EMPTY BAG 1 BAG IV SCH ×6 (01:38→23:52)
[2016-04-23] MEDS: HYDROcodone/APAP 5-325MG 1 EACH TAB PO PRN ×2 (02:19→21:24)
[2016-04-23] MEDS: IPRATROPIUM-ALBUTEROL 3 ML NEB INHALATION SCH ×6 (03:17→23:40)
[2016-04-23 03:49] LABS: Glucose,Whole Blood 143 mg/dL (75-99)
[2016-04-23 04:04] LABS: CH 30.4; CHCM 33.2; HCT 23.4 % (39.0-53.0); HDW 3.23; HGB 7.8 gm/dL (13.0-17.5); Immature Gran Flag Slight; MCH 30.7 pg (25.0-35.0); MCHC 33.2 g/dL (31.0-37.0); MCV 92.3 fL (80.0-100.0); Mean Platelet Volume 8.9; RBC 2.53 m/uL (4.30-5.90); RDW 14.8 % (11.5-15.5); WBC (Perox) 11.81
[2016-04-23] MEDS: MAGNESIUM HYDROXIDE 2,400 MG/10 ML CUP PO PRN (04:05)
[2016-04-23 04:10] LABS: Ionized Calcium 4.9 mg/dL (4.5-5.3)
[2016-04-23 04:19] LABS: ALT 41 U/L (21-72); AST 36 U/L (17-59); Alkaline Phosphatase 122 U/L (38-126); Blood Urea Nitrogen 33 mg/dL (9-20); Calcium 7.6 mg/dL (8.4-10.2); Carbon Dioxide 29 mmol/L (22-30); Glucose 141 mg/dL (74-99); Non-African American GFR(MDRD) >60 (>60 ml/min/1.73 sqM); Phosphorous 3.3 mg/dL (2.5-4.5); Potassium 3.8 mmol/L (3.5-5.1); Total Bilirubin 0.7 mg/dL (0.2-1.3); Total Protein 4.4 g/dL (6.3-8.2)
[2016-04-23 04:20] LABS: Magnesium 2.3 mg/dL (1.6-2.3)
[2016-04-23 04:32] LABS: Anion Gap 9 mmol/L; Chloride 108 mmol/L (98-107); Sodium 146 mmol/L (137-145)
[2016-04-23 04:52] LABS: Add Differential Manual Differential
[2016-04-23 04:58] LABS: Metamyelocytes % 0.5 %; Nucleated Red Blood Cells 1 /100 WBC (0-0); Total Cells Counted 200
[2016-04-23 04:59] LABS: Manual Review Performed; WBC 10.6 k/uL (3.8-10.6)
[2016-04-23 05:00] LABS: Ovalocytes Present
[2016-04-23] MEDS ORDERED: POTASSIUM CHLORIDE ORAL LIQUID 40 MEQ/30 ML CUP NG-TUBE SCH (05:00)
[2016-04-23 05:12] LABS: ABG PCO2 41 mmHg (35-45); ABG PH 7.41 (7.35-7.45); ABG PO2 105 mmHg (83-108)
[2016-04-23 05:13] LABS: ABG Base Excess 1.8 mmol/L; ABG HCO3 26 mmol/L (21-25); ABG TCO2 27 mmol/L (19-24)
[2016-04-23 05:43] LABS: ABG Base Excess 3.3 mmol/L; ABG HCO3 26 mmol/L (21-25); ABG Oxygen Saturation 99.3 % (94-97); ABG PCO2 32 mmHg (35-45); ABG PH 7.51 (7.35-7.45); ABG PO2 132 mmHg (83-108); ABG TCO2 27 mmol/L (19-24)
[2016-04-23 05:44] LABS: ABG Base Excess 1.8 mmol/L; ABG HCO3 26 mmol/L (21-25); ABG Oxygen Saturation 97.6 % (94-97); ABG PCO2 40 mmHg (35-45); ABG PH 7.42 (7.35-7.45); ABG PO2 96 mmHg (83-108); ABG TCO2 27 mmol/L (19-24)
[2016-04-23 05:45] LABS: ABG Base Excess 3.4 mmol/L; ABG HCO3 27 mmol/L (21-25); ABG PCO2 40 mmHg (35-45); ABG PH 7.44 (7.35-7.45); ABG PO2 376 mmHg (83-108); ABG TCO2 29 mmol/L (19-24)
[2016-04-23 05:46] LABS: ABG Base Excess 3.4 mmol/L; ABG HCO3 27 mmol/L (21-25); ABG Oxygen Saturation 99.8 % (94-97); ABG PCO2 39 mmHg (35-45); ABG PH 7.45 (7.35-7.45); ABG PO2 221 mmHg (83-108); ABG TCO2 28 mmol/L (19-24)
[2016-04-23 05:47] LABS: ABG Base Excess 2.6 mmol/L; ABG HCO3 27 mmol/L (21-25); ABG Oxygen Saturation 99.9 % (94-97); ABG PCO2 42 mmHg (35-45); ABG PH 7.42 (7.35-7.45); ABG PO2 310 mmHg (83-108); ABG TCO2 28 mmol/L (19-24)
[2016-04-23 05:48] LABS: ABG Base Excess 1.9 mmol/L; ABG HCO3 26 mmol/L (21-25); ABG Oxygen Saturation 99.9 % (94-97); ABG PCO2 43 mmHg (35-45); ABG PO2 275 mmHg (83-108); ABG TCO2 28 mmol/L (19-24)
[2016-04-23 05:49] LABS: ABG Base Excess 1.5 mmol/L; ABG HCO3 26 mmol/L (21-25); ABG Oxygen Saturation 99.9 % (94-97); ABG PCO2 41 mmHg (35-45); ABG PH 7.41 (7.35-7.45); ABG PO2 321 mmHg (83-108); ABG TCO2 27 mmol/L (19-24)
[2016-04-23 05:50] LABS: ABG Base Excess -0.4 mmol/L; ABG HCO3 24 mmol/L (21-25); ABG Oxygen Saturation 99.9 % (94-97); ABG PCO2 42 mmHg (35-45); ABG PH 7.38 (7.35-7.45); ABG PO2 290 mmHg (83-108); ABG TCO2 25 mmol/L (19-24)
[2016-04-23 05:51] LABS: ABG HCO3 24 mmol/L (21-25); ABG PCO2 47 mmHg (35-45); ABG PH 7.34 (7.35-7.45); ABG PO2 55 mmHg (83-108); ABG TCO2 26 mmol/L (19-24)
[2016-04-23 05:52] LABS: ABG Base Excess -1.1 mmol/L; ABG HCO3 24 mmol/L (21-25); ABG PCO2 45 mmHg (35-45); ABG PH 7.35 (7.35-7.45); ABG PO2 62 mmHg (83-108); ABG TCO2 25 mmol/L (19-24)
[2016-04-23] MEDS: MILRINONE-D5W PMX 20 MG in DEXTROSE/WATER 1 100ML.BAG IV SCH ×3 (06:59→13:47)
[2016-04-23] MEDS: ACETYLCYSTEINE 800 MG/4 ML VIAL INHALATION SCH ×5 (08:08→20:12)
[2016-04-23] MEDS: SODIUM CHLORIDE 0.9% 99 ML with VASOPRESSIN 20 UNIT IV SCH ×4 (08:13→08:14)
[2016-04-23] MEDS: POTASSIUM CHLORIDE ORAL LIQUID 40 MEQ/30 ML CUP PO SCH ×2 (08:14→21:22)
[2016-04-23] MEDS: PANTOPRAZOLE 40 MG/10 ML VIAL IVP SCH (08:15)
[2016-04-23] MEDS: METOPROLOL TARTRATE 25 MG TAB PO SCH ×2 (08:15→21:21)
[2016-04-23] MEDS: CLOPIDOGREL 75 MG TAB PO SCH (08:15)
[2016-04-23] MEDS: FUROSEMIDE 10 MG/ML 4 ML VIAL IV SCH ×2 (08:15→21:21)
[2016-04-23] MEDS: CHLORHEXIDINE GLUCONATE 15 ML CUP MUCOUS MEM SCH ×2 (08:15→21:21)
[2016-04-23] MEDS: ASPIRIN 81 MG CHEW PO SCH (08:15)
[2016-04-23] MEDS: ATORVASTATIN 40 MG TAB PO SCH (08:15)
[2016-04-23] MEDS: DOCUSATE ORAL SOLN 100 MG/10 ML CUP PO SCH (08:15)
[2016-04-23 08:22] LABS: Glucose,Whole Blood 150 mg/dL (75-99)
--- NOTE | 2016-04-23 09:10 | P.PN ---
Progress Note - Text CV Surgery Nursing POD: #5, triple vessel coronary artery bypass grafting using the left internal mammary artery to the left anterior descending coronary artery, a reverse greater saphenous vein graft from the aorta to the early arising posterior descending coronary artery, a reverse greater saphenous vein graft from the aorta to the intramyocardial ramus intermedius artery proximally. 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 Intraoperative transesophageal echocardiogram and Epi-aortic scanning. Endoscopic vein harvesting of the right greater saphenous vein. #5 Reexploration for postoperative bleeding. Patient remains intubated with mechanical ventilator support, he is sedated on Diprivan drip at 25 mcg/kg/m. He is not following any verbal commands at this time although he does withdrawal from noxious stimuli. Vital Signs: T-max temperature 99.8F Vital Signs - 24 hr 04/22/16 04/22/16 04/22/16 09:00 10:00 11:00 Temperature Pulse Rate 83 78 78 Respiratory 16 18 19 Rate Blood Pressure O2 Sat by Pulse 99 99 98 Oximetry 04/22/16 04/22/16 04/22/16 12:00 13:00 13:15 Temperature Pulse Rate 79 84 90 Respiratory 16 18 Rate Blood Pressure O2 Sat by Pulse 99 100 Oximetry 04/22/16 04/22/16 04/22/16 14:00 15:00 15:49 Temperature Pulse Rate 83 87 90 Respiratory 20 18 Rate Blood Pressure O2 Sat by Pulse 100 96 Oximetry 04/22/16 04/22/16 04/22/16 16:00 16:05 17:00 Temperature 99.2 F Pulse Rate 85 88 88 Respiratory 16 25 H Rate Blood Pressure O2 Sat by Pulse 98 98 Oximetry 04/22/16 04/22/16 04/22/16 18:00 19:00 19:45 Temperature Pulse Rate 92 96 Respiratory 20 19 Rate Blood Pressure O2 Sat by Pulse 97 98 97 Oximetry 04/22/16 04/22/16 04/22/16 20:00 20:49 21:00 Temperature 99.6 F Pulse Rate 91 96 86 Respiratory 20 19 Rate Blood Pressure 136/56 O2 Sat by Pulse 97 98 Oximetry 04/22/16 04/22/16 04/22/16 21:01 22:00 23:00 Temperature Pulse Rate 86 85 86 Respiratory 20 23 Rate Blood Pressure O2 Sat by Pulse 95 98 Oximetry 04/22/16 04/22/16 04/22/16 23:02 23:14 23:42 Temperature Pulse Rate 85 85 Respiratory Rate Blood Pressure O2 Sat by Pulse 98 Oximetry 04/23/16 04/23/16 04/23/16 00:00 00:02 01:00 Temperature 99.8 F H 99.8 F H Pulse Rate 86 84 86 Respiratory 16 17 19 Rate Blood Pressure 106/53 106/53 O2 Sat by Pulse 97 97 97 Oximetry 04/23/16 04/23/16 04/23/16 02:00 03:00 03:09 Temperature Pulse Rate 84 85 85 Respiratory 22 19 Rate Blood Pressure O2 Sat by Pulse 96 98 Oximetry 04/23/16 04/23/16 04/23/16 03:20 03:36 04:00 Temperature 98.9 F Pulse Rate 85 84 Respiratory 16 Rate Blood Pressure 102/54 O2 Sat by Pulse 98 97 Oximetry 04/23/16 04/23/16 04/23/16 05:00 06:00 07:00 Temperature Pulse Rate 80 82 82 Respiratory 16 18 17 Rate Blood Pressure O2 Sat by Pulse 98 97 98 Oximetry 04/23/16 08:20 Temperature Pulse Rate 83 Respiratory Rate Blood Pressure O2 Sat by Pulse Oximetry ABP, PAP, CO, CI - Last 8 Hours Arterial Blood Pressure 100/45 Arterial Blood Pressure 103/47 Arterial Blood Pressure 109/50 Arterial Blood Pressure 106/49 Arterial Blood Pressure 113/49 Arterial Blood Pressure 107/46 Arterial Blood Pressure 118/48 Labs: Laboratory Tests 04/23/16 04/23/16 04/23/16 03:50 03:50 04:56 WBC 10.6 Hgb 7.8 L Hct 23.4 L Plt Count 127 L ABG pH 7.41 ABG pCO2 41 ABG pO2 105 ABG HCO3 26 H ABG O2 Saturation 98.0 H ABG Base Excess 1.8 FiO2 50 Sodium 146 H Potassium 3.8 Chloride 108 H Carbon Dioxide 29 BUN 33 H Creatinine 1.10 Glucose 141 H Calcium 7.6 L Ionized Calcium [place] 4.9 Phosphorus 3.3 Magnesium 2.3 AST 36 ALT 41 04/23/16 06:20 WBC Hgb Hct Plt Count ABG pH ABG pCO2 ABG pO2 ABG HCO3 ABG O2 Saturation ABG Base Excess FiO2 Sodium Potassium 5.0 Chloride Carbon Dioxide BUN Creatinine Glucose Calcium Ionized Calcium [place] Phosphorus Magnesium AST ALT Microbiology 04/20/16 23:39 Sputum Gram Stain - Preliminary 04/20/16 23:39 Sputum Sputum Culture - Preliminary 04/20/16 10:30 Bronchoalviolar Lavage - Right Gram Stain - Final 04/20/16 10:30 Bronchoalviolar Lavage - Right Bronchial Washings Culture - Final 04/20/16 10:30 Bronchoalviolar Lavage - Right Acid Fast Bacilli Smear - Final 04/20/16 10:30 Bronchoalviolar Lavage - Right Acid Fast Bacilli Culture - Preliminary 04/20/16 10:30 Bronchoalviolar Lavage - Right Fungal Culture - Preliminary 04/17/16 14:28 Urine,Clean Catch Urine Culture - Final 04/15/16 18:00 Nasal Swab Nasal Culture - Final IV Fluids: Lactated Ringer's at 30 mL/h Primacor drip at 0.15 mcg/kg/m Diprivan drip at 25 mcg/kg/m Lungs: Few scattered rhonchi throughout, diminished bilateral bases right greater than left. Respirations are unlabored with mechanical ventilator support. Current ventilator settings are as follows: AC 16, TV 550, FiO2 50%, PEEP 5. O2 sat: 98% with 50% FiO2 with mechanical ventilator support. Heart: S1S2, regular rhythm and rate, negative for murmur, S3 or gallop. Bedside monitor showing normal sinus rhythm with rare PVC heart rate 82. Sternum stable, chest incision clean with silverlon dressing clean and dry. Heart hugger in place. Right leg incision with no drainage noted, well approximated. DOTTIE drain discontinued this a.m. 25 mL output in the last 24 hours. Knee-high KARON hose and sequential compression devices in place to bilateral lower extremities. Abdomen: Soft, Positive bowel sounds present in all 4 quadrants. OG tube in place with vital high-protein tube feeding infusing at goal rate of 70 mL per hour with automatic water flushes at 30 mL every 4 hours. CBGs: 136 150 mg/dL in the last 24 hours. U/O: Adequate, Nava catheter for accurate I&O. Small excoriated area noted to his foreskin of his penis. Scrotum and penis with edema noted. 1165 mL output in the last 8 hours. Chest Tubes: Left pleural chest tube without airleak, remains to continuous wall suction at -20 cm of H2O. 50 mL output in the last 8 hours, 200 mL output in the last 24 hours. Right pleural chest tube without air leak, remains to continuous wall suction at -20 cm H2O. 50 mL output last 8 hours, 380 mL output in the last 24 hours. 24 hr Total: Intake & Output 04/21/16 04/22/16 04/23/16 04/24/16 06:59 06:59 06:59 06:59 Intake Total 4249.541 3091.029 3936.417 Output Total 3678 3175 5265 Balance 2028.541 -83.971 -1328.583 Weight 134.8 kg 134.8 kg 128.7 kg Active Medications Generic Name Dose Route Start Last Admin Trade Name Freq PRN Reason Stop Dose Admin Acetaminophen 650 mg 04/20/16 19:38 Tylenol Tab PO Q6HR PRN Fever and/ or Pain Acetaminophen/Hydrocodone Bitart 2 each 04/19/16 14:56 04/23/16 02:19 [place] 5-325 PO 2 each Q4HR PRN Administration Severe Pain Acetaminophen/Hydrocodone Bitart 1 each 04/19/16 14:56 04/22/16 14:17 [place] 5-325 PO 1 each Q4HR PRN Administration Moderate Pain Acetylcysteine 200 mg 04/19/16 00:00 04/23/16 08:08 Mucomyst INHALATION 200 mg RT-QID ADAM Administration Albuterol/Ipratropium 3 ml 04/18/16 16:00 04/23/16 08:09 Duoneb 0.5 Mg-3 Mg/3 Ml Soln INHALATION 3 ml RT-Q4H ADAM Administration Albuterol/Ipratropium 3 ml 04/19/16 14:59 Duoneb 0.5 Mg-3 Mg/3 Ml Soln INHALATION RT-Q2H PRN Shortness Of Breath Or Wheezing Aspirin 81 mg 04/20/16 09:00 04/23/16 08:15 Aspirin PO 81 mg DAILY ADAM Administration Atorvastatin Calcium 40 mg 04/19/16 09:00 04/23/16 08:15 Lipitor PO 40 mg DAILY ADAM Administration Bisacodyl 10 mg 04/19/16 14:58 04/22/16 08:56 Dulcolax RECTAL 10 mg DAILY PRN Administration Constipation Chlorhexidine Gluconate 15 ml 04/20/16 22:30 04/23/16 08:15 Peridex MUCOUS MEM 15 ml BID ADAM Administration Clopidogrel Bisulfate 75 mg 04/20/16 09:00 04/23/16 08:15 Plavix PO 75 mg DAILY ADAM Administration Docusate Sodium 100 mg 04/23/16 09:00 04/23/16 08:15 Colace Oral Soln PO 100 mg DAILY ADAM Administration Furosemide 40 mg 04/22/16 10:00 04/23/16 08:15 Lasix IV 04/23/16 21:01 40 mg Q12HR ADAM Administration Heparin Sodium (Porcine) 5,000 unit 04/19/16 16:00 04/23/16 08:14 Heparin SQ 5,000 unit Q8HR ADAM Administration Lactated Ringer's 1,000 mls @ 30 mls/hr 04/18/16 15:00 04/22/16 15:21 Lactated Ringers IV 30 mls/hr .Q24H ADAM Administration Propofol 500 mg/ IV Solution 50 mls @ 0 mls/hr 04/18/16 15:00 04/23/16 07:00 IV 25 mcg/kg/min .Q0M ADAM 17.97 mls/hr Protocol Administration Titrate Vasopressin 20 unit/ Sodium 100 mls @ 9 mls/hr 04/18/16 14:45 04/23/16 08:14 Chloride IV Not Given .Q11H7M ADAM Protocol 0.03 UNITS/MIN Piperacillin/Tazobactam/ 50 mls @ 12.5 mls/hr 04/20/16 10:45 04/23/16 00:12 Dextrose 3.375 gm/ IV Solution IVPB 12.5 mls/hr Q8HR ADAM Administration Phenylephrine HCl 40 mg/ 254 mls @ 0 mls/hr 04/21/16 08:00 Sodium Chloride IV .Q0M ADAM Protocol Titrate Milrinone Lactate/Dextrose 20 100 mls @ 12.13 mls/hr 04/21/16 15:31 04/23/16 08:14 mg/ IV Solution IV Not Given .Q8H15M ADAM 0.3 MCG/KG/MIN Vancomycin HCl 2,250 mg/ 500 mls @ 167 mls/hr 04/22/16 22:00 04/22/16 22:25 Sodium Chloride IVPB 167 mls/hr Q16H ADAM Administration Insulin Human Lispro 0 unit 04/22/16 08:30 04/23/16 08:21 Humalog SQ 1 unit Q4HR ADAM Administration Protocol Magnesium Hydroxide 2,400 mg 04/19/16 14:58 04/23/16 04:05 Milk Of Magnesia PO 2,400 mg BID PRN Administration Constipation Metoprolol Tartrate 25 mg 04/21/16 09:00 04/23/16 08:15 Lopressor PO 25 mg BID ADAM Administration Miscellaneous Information 1 each 04/18/16 14:58 Magnesium Per Protocol MISCELLANE DAILY PRN Per Protocol Protocol Miscellaneous Information 1 each 04/18/16 14:58 Phosphorus Per Protocol MISCELLANE DAILY PRN Per Protocol Protocol Miscellaneous Information 1 each 04/18/16 14:58 Potassium Per Protocol MISCELLANE DAILY PRN Per Protocol Protocol Morphine Sulfate 2 mg 04/18/16 14:51 Morphine Sulfate (Inj) IVP Q2H PRN Severe Pain Ondansetron HCl 4 mg 04/18/16 14:58 Zofran IVP Q6HR PRN Nausea And Vomiting Pantoprazole Sodium 40 mg 04/19/16 09:00 04/23/16 08:15 Protonix IVP 40 mg DAILY ADAM Administration Potassium Chloride 20 meq 04/22/16 10:00 04/23/16 08:14 Potassium Chloride Oral Liquid PO 04/23/16 21:01 20 meq Q12HR ADAM Administration Sodium Chloride 10 ml 04/18/16 21:00 04/23/16 08:16 Saline Flush IV Not Given BID [facility] Plan: Per Dr. Casey, we will discontinue his right femoral A-line. Continue Lasix and potassium chloride as ordered. Dr. Oseguera will perform a bedside bronchoscopy. Pulmonary and ventilator management per Dr. Oseguera. DOTTIE drain was discontinued. We will change his lactated Ringer's 0.9% normal saline at KVO. We will continue his Primacor drip at 0.15 mcg/kg/m. His chest tubes remain in place at least for another 24 hours.
--- NOTE | 2016-04-23 09:18 | XR ---
EXAMINATION TYPE: XR chest 1V portable DATE OF EXAM: 04/23/2016 6:19 AM COMPARISON: NONE INDICATION: Postcardiac surgery TECHNIQUE: Single frontal view of the chest is obtained. FINDINGS: The heart size is normal. The pulmonary vasculature is normal. Small bilateral pleural effusions are present Left and right-sided chest tubes are present. An endotracheal tube is present with the tip above the shanice. Nasogastric tube transverses the thorax. Sternotomy wires are in the midline. IMPRESSION: 1. Small bilateral pleural effusions. 2. Lines and catheters discussed above.
[2016-04-23] MEDS ORDERED: HYDROmorphone 1 MG/ML 1 ML SYRINGE IVP STA (09:30)
[2016-04-23] MEDS ORDERED: HYDROmorphone 1 MG/ML 1 ML SYRINGE ONE (09:30)
[2016-04-23 11:50] LABS: Glucose,Whole Blood 128 mg/dL (75-99)
--- NOTE | 2016-04-23 13:35 | P.PN ---
Subjective This 76-year-old gentleman is status post coronary bypass surgery and also aortic valve replacement. Patient is still sedated and intubated. Apparently patient is having a lot of secretions and Repeated bronchoscopies contemplated. Patient also having intermittent mild fever. He is hemodynamically stable. He is off Levophed. He is on Primacor. Patient's PEEP pressure was reduced to 5. It seems that is oxygenation is better and patient may not be extubated today. patient will continue his current medical therapy. Apparently patient's mental status is preserved when he is off sedation Objective - Vital Signs Vital signs: Vital Signs Temp 97.8 F 04/23/16 08:00 Pulse 82 04/23/16 12:07 Resp 12 04/23/16 10:00 BP 102/54 04/23/16 04:00 Pulse Ox 96 04/23/16 10:00 Intake & Output 04/22/16 04/23/16 04/23/16 18:59 06:59 18:59 Intake Total 5799.747 6163.432 101 Output Total 2795 2470 65 Balance -1140.015 -188.568 36 Weight 134.8 kg 128.7 kg 128.7 kg Intake: IV 538 393.0 31 .9NS Cardiac Output 60 0.9NS Pressure Bag 108 78 6 Lactated Ringers 1,000 ml 270 265 25 @ 30 mls/hr IV .Q24H [facility] Rx#:[id number] Piperacillin-Tazobactam 3 100 50.0 .375 gm In Dextrose/Water 1 50ml.bag @ 12.5 mls/hr IVPB Q8HR ADAM Rx#: [id number] Intake, IV Titration 511.985 828.432 Amount Milrinone-D5w Pmx 20 mg 49.531 96.159 In Dextrose/Water 1 100ml .bag @ 0.3 MCG/KG/MIN 12. 13 mls/hr IV .Q8H15M ADAM Rx#:[id number] Propofol 500 mg In Empty 212.454 231.273 Bag 1 bag @ Titrate IV . Q0M ADAM Rx#:[id number] Vancomycin 2,000 mg In 250 Sodium Chloride 0.9% 500 ml @ 167 mls/hr IVPB Q16H [facility] Rx#:[id number] Vancomycin 2,250 mg In 501 Sodium Chloride 0.9% 500 ml @ 167 mls/hr IVPB Q16H [facility] Rx#:[id number] Tube Feeding 545 940 70 Other 60 120 Output: Chest Tube Drainage 270 230 20 Left Pleural 100 100 0 Right Pleural 170 130 20 Drainage 15 10 Right Calf 15 10 Urine 2510 2230 45 Other: Voiding Method Indwelling Catheter Indwelling Catheter ABP, PAP, CO, CI - Last Documented Arterial Blood Pressure 96/40 Pulmonary Artery Pressure 31/25 Cardiac Output 7 Cardiac Index 3.0 - Exam GENERAL EXAM: Patient debated and sedated HEENT: Normocephalic. Normal reaction of pupils, equal size, normal range of extraocular motion. No erythema or exudates in the throat. NECK: No masses, no nuchal rigidity. CHEST: No chest wall deformity. LUNGS: Diminished breath sounds HEART: S1 and S2 normal and distant heart sounds.. ABDOMEN: No hepatosplenomegaly, normal bowel sounds, no guarding or rigidity. SKIN: No rashes CENTRAL NERVOUS SYSTEM: No focal deficits. EXTREMITIES: No cyanosis, clubbing or edema. - Labs CBC & Chem 7: 04/23/16 03:50 04/23/16 06:20 Labs: Abnormal Lab Results - Last 24 Hours (Table) 04/18/16 04/18/16 04/18/16 Range/Units 08:57 11:02 11:35 RBC (4.30-5.90) m/uL Hgb (13.0-17.5) gm/dL Hct (39.0-53.0) % Plt Count (150-450) k/uL Neutrophils # (Manual) (1.3-7.7) k/uL Nucleated RBCs (0-0) /100 WBC ABG pH 7.51 H (7.35-7.45) ABG pCO2 32 L (35-45) mmHg ABG pO2 132 H 376 H (83-108) mmHg ABG HCO3 26 H 26 H 27 H (21-25) mmol/L ABG Total CO2 27 H 27 H 29 H (19-24) mmol/L ABG O2 Saturation 99.3 H 97.6 H 100.0 H (94-97) % ABG Hematocrit 31 L (34.0-46.0) % ABG Potassium (3.4-4.5) mmol/L Sodium (137-145) mmol/L Chloride (98-107) mmol/L BUN (9-20) mg/dL Glucose (74-99) mg/dL POC Glucose (mg/dL) (75-99) mg/dL Calcium (8.4-10.2) mg/dL Total Protein (6.3-8.2) g/dL Albumin (3.5-5.0) g/dL Arterial Blood Potassium (3.4-4.5) mmol/L 04/18/16 04/18/16 04/18/16 Range/Units 12:10 12:51 13:22 RBC (4.30-5.90) m/uL Hgb (13.0-17.5) gm/dL Hct (39.0-53.0) % Plt Count (150-450) k/uL Neutrophils # (Manual) (1.3-7.7) k/uL Nucleated RBCs (0-0) /100 WBC ABG pH (7.35-7.45) ABG pCO2 (35-45) mmHg ABG pO2 221 H 310 H 275 H (83-108) mmHg ABG HCO3 27 H 27 H 26 H (21-25) mmol/L ABG Total CO2 28 H 28 H 28 H (19-24) mmol/L ABG O2 Saturation 99.8 H 99.9 H 99.9 H (94-97) % ABG Hematocrit 29 L 29 L 28 L (34.0-46.0) % ABG Potassium 5.1 H 4.7 H 5.0 H (3.4-4.5) mmol/L Sodium (137-145) mmol/L Chloride (98-107) mmol/L BUN (9-20) mg/dL Glucose (74-99) mg/dL POC Glucose (mg/dL) (75-99) mg/dL Calcium (8.4-10.2) mg/dL Total Protein (6.3-8.2) g/dL Albumin (3.5-5.0) g/dL Arterial Blood Potassium 5.1 H 4.7 H 5.0 H (3.4-4.5) mmol/L 04/18/16 04/18/16 04/18/16 Range/Units 13:54 14:32 15:09 RBC (4.30-5.90) m/uL Hgb (13.0-17.5) gm/dL Hct (39.0-53.0) % Plt Count (150-450) k/uL Neutrophils # (Manual) (1.3-7.7) k/uL Nucleated RBCs (0-0) /100 WBC ABG pH 7.34 L (7.35-7.45) ABG pCO2 47 H (35-45) mmHg ABG pO2 321 H 290 H 55 L (83-108) mmHg ABG HCO3 26 H (21-25) mmol/L ABG Total CO2 27 H 25 H 26 H (19-24) mmol/L ABG O2 Saturation 99.9 H 99.9 H 86.0 L (94-97) % ABG Hematocrit 26 L 26 L 26 L (34.0-46.0) % ABG Potassium 4.8 H (3.4-4.5) mmol/L Sodium (137-145) mmol/L Chloride (98-107) mmol/L BUN (9-20) mg/dL Glucose (74-99) mg/dL POC Glucose (mg/dL) (75-99) mg/dL Calcium (8.4-10.2) mg/dL Total Protein (6.3-8.2) g/dL Albumin (3.5-5.0) g/dL Arterial Blood Potassium 4.8 H (3.4-4.5) mmol/L 04/18/16 04/22/16 04/22/16 Range/Units 15:38 15:15 16:10 RBC (4.30-5.90) m/uL Hgb (13.0-17.5) gm/dL Hct (39.0-53.0) % Plt Count (150-450) k/uL Neutrophils # (Manual) (1.3-7.7) k/uL Nucleated RBCs (0-0) /100 WBC ABG pH 7.46 H (7.35-7.45) ABG pCO2 (35-45) mmHg ABG pO2 62 L (83-108) mmHg ABG HCO3 (21-25) mmol/L ABG Total CO2 25 H 25 H (19-24) mmol/L ABG O2 Saturation 90.0 L (94-97) % ABG Hematocrit 29 L (34.0-46.0) % ABG Potassium (3.4-4.5) mmol/L Sodium (137-145) mmol/L Chloride (98-107) mmol/L BUN (9-20) mg/dL Glucose (74-99) mg/dL POC Glucose (mg/dL) 123 H (75-99) mg/dL Calcium (8.4-10.2) mg/dL Total Protein (6.3-8.2) g/dL Albumin (3.5-5.0) g/dL Arterial Blood Potassium (3.4-4.5) mmol/L 04/22/16 04/23/16 04/23/16 Range/Units 19:57 00:09 03:46 RBC (4.30-5.90) m/uL Hgb (13.0-17.5) gm/dL Hct (39.0-53.0) % Plt Count (150-450) k/uL Neutrophils # (Manual) (1.3-7.7) k/uL Nucleated RBCs (0-0) /100 WBC ABG pH (7.35-7.45) ABG pCO2 (35-45) mmHg ABG pO2 (83-108) mmHg ABG HCO3 (21-25) mmol/L ABG Total CO2 (19-24) mmol/L ABG O2 Saturation (94-97) % ABG Hematocrit (34.0-46.0) % ABG Potassium (3.4-4.5) mmol/L Sodium (137-145) mmol/L Chloride (98-107) mmol/L BUN (9-20) mg/dL Glucose (74-99) mg/dL POC Glucose (mg/dL) 139 H 133 H 143 H (75-99) mg/dL Calcium (8.4-10.2) mg/dL Total Protein (6.3-8.2) g/dL Albumin (3.5-5.0) g/dL Arterial Blood Potassium (3.4-4.5) mmol/L 04/23/16 04/23/16 04/23/16 Range/Units 03:50 03:50 04:56 RBC 2.53 L (4.30-5.90) m/uL Hgb 7.8 L (13.0-17.5) gm/dL Hct 23.4 L (39.0-53.0) % Plt Count 127 L (150-450) k/uL Neutrophils # (Manual) 8.2 H (1.3-7.7) k/uL Nucleated RBCs 1 H (0-0) /100 WBC ABG pH (7.35-7.45) ABG pCO2 (35-45) mmHg ABG pO2 (83-108) mmHg ABG HCO3 26 H (21-25) mmol/L ABG Total CO2 27 H (19-24) mmol/L ABG O2 Saturation 98.0 H (94-97) % ABG Hematocrit (34.0-46.0) % ABG Potassium (3.4-4.5) mmol/L Sodium 146 H (137-145) mmol/L Chloride 108 H (98-107) mmol/L BUN 33 H (9-20) mg/dL Glucose 141 H (74-99) mg/dL POC Glucose (mg/dL) (75-99) mg/dL Calcium 7.6 L (8.4-10.2) mg/dL Total Protein 4.4 L (6.3-8.2) g/dL Albumin 2.3 L (3.5-5.0) g/dL Arterial Blood Potassium (3.4-4.5) mmol/L 04/23/16 04/23/16 Range/Units 08:20 11:47 RBC (4.30-5.90) m/uL Hgb (13.0-17.5) gm/dL Hct (39.0-53.0) % Plt Count (150-450) k/uL Neutrophils # (Manual) (1.3-7.7) k/uL Nucleated RBCs (0-0) /100 WBC ABG pH (7.35-7.45) ABG pCO2 (35-45) mmHg ABG pO2 (83-108) mmHg ABG HCO3 (21-25) mmol/L ABG Total CO2 (19-24) mmol/L ABG O2 Saturation (94-97) % ABG Hematocrit (34.0-46.0) % ABG Potassium (3.4-4.5) mmol/L Sodium (137-145) mmol/L Chloride (98-107) mmol/L BUN (9-20) mg/dL Glucose (74-99) mg/dL POC Glucose (mg/dL) 150 H 128 H (75-99) mg/dL Calcium (8.4-10.2) mg/dL Total Protein (6.3-8.2) g/dL Albumin (3.5-5.0) g/dL Arterial Blood Potassium (3.4-4.5) mmol/L Microbiology - Last 24 Hours (Table) 04/20/16 23:39 Gram Stain - Final Sputum Sputum Culture - Final Eikenella species 04/20/16 10:30 Gram Stain - Final Bronchoalviolar Lavage - Right Bronchial Washings Culture - Final Assessment and Plan (1) Status post aorto-coronary artery bypass graft Status: Acute (2) NSTEMI (non-ST elevated myocardial infarction) Status: Acute (3) Cardiomyopathy Status: Acute Plan: Continue current medical therapy. Possible bronchoscopy and washing today. Continue ventilatory support. Hemodynamically patient is stable. Further recommendations depend upon clinical course.
[2016-04-23] MEDS: VANCOMYCIN 2,250 MG in SODIUM CHLORIDE 0.9% 500 ML IVPB SCH (13:54)
--- NOTE | 2016-04-23 14:57 | P.PN ---
Subjective Principal diagnosis: Triple-vessel coronary artery disease, severe LV dysfunction. Right lower lobe collapse This 76-year-old male patient , post 3 vessel bypass surgery including PHAM to LAD saphenous vein graft to diagonal and ramus branches and aortic valve replacement was currently back in the intensive care unit and the patient is postop day 1. Note that the patient was taken back to the operating room after he arrived the ICU. The patient was having bleeding from his mediastinal chest tubes. Further examination was done and the bleeding site was identified and the local hemostasis was achieved and following that the patient was brought back to the intensive care unit. Overnight, the patient remains on a mechanical ventilator and he remains sedated with Diprivan. He was gradually taken off the vasopressin drip and the Gal-Synephrine drip and both are discontinued. Currently is on 8 mics of norepinephrine infusion and Primacor. He is hemodynamically stable. He remains on a mechanical ventilator and his series of chest x-rays that was done postop showed a partial atelectasis of the right upper lobe which subsequently improved. Morning's chest x-ray showed adequate expansion of the right upper lobe area and there is probably some small better pleural effusion. ET tube is in a good location. The patient has a Mayfield-Candace catheter in place. There aren't pleural and mediastinal chest tubes are all in place. On the mechanical ventilator, the patient is on a assist-control mode at the rate of 20, tidal volume of 650, FiO2 of 80% and PEEP of 12. He is having some air leak within the mediastinal chest tube. Output however has improved and there is evidence of any acute bleeding. Hemoglobin is stable for now. On 04/20/2016 the patient is being seen in follow-up. The patient is still intubated on mechanical ventilator. He is an assist-control mode with a tidal volume that was dropped down to 550 and the rate of 20 with a PEEP of 8 and FiO2 of 50%. Blood gases from earlier this morning showed a component of respiratory alkalosis with a pH of 7.53 and a pCO2 of 27 and pO2 of 80. The patient demonstrated right lower lobe atelectasis on today's chest x-ray. It acutely remains in a good location. All of the chest tubes are still in place. The patient is still having air leak for the mediastinal tube. Total amount of output from old the chest tubes have been 150 mL over the past 8 hours. Hemoglobin has dropped down to 6.8 and the patient is receiving a unit of packed RBC. Otherwise no chills. No fever. No hypotension. No leukocytosis. Based on the x-ray findings, I performed a bronchoscopy on this patient and copious amount of purulent discharge secretions were identified in the right lower lobe and the bronchus intermedius. Therapeutic airway suctioning was done. The pertinent rest or secretions were sent out for cultures. Therapeutic airway washing was done. The patient was started on broad-spectrum antibiotics and he was covered with a combination of Zosyn and vancomycin. Hemodynamically, the patient was taken off the pressors. He is off the norepinephrine infusion. He is still on Primacor. He has adequate urine output and adequate cardiac output at this point. On the patient is being seen in follow-up. The patient is still has consolidation/atelectasis of the right lower lobe. There is significant volume loss on his chest x-ray. He remains on a same vent setting which includes an assist-control of 16, tidal volume of 550, FiO2 of 50% and a PEEP of 8. The blood gases showed a pH of 7.42 with a pCO2 of 37 and pO2 of 82. The patient is hemodynamically stable. He is off norepinephrine infusion. He is still on Primacor at the rate of 0.4 mics and his most recent cardiac index is at 1.8. The [facility] chest tubes are out and the patient has right pleural and left pleural chest tubes. He was bronchoscoped yesterday and copious amount of rest or secretions were suctioned from his right lung. The cultures are pending for now and meanwhile the Gram stain is shown gram-positive cocci. The patient was having on and off fever yesterday and his blood pressure was fluctuating with occasional episodes of hypotension. Episodically was requiring brief pressors and currently off norepinephrine infusion. Antibiotic coverage including a combination of Zosyn and vancomycin. He is sedated with Diprivan. A brief sedation holiday was given and he follows commands and his mentation is appropriate at this point. He is on insulin drip for blood sugar control. He' ll be initiated on tube feeds today. On 04/22/2016, the patient is being seen in follow-up. Overnight he was having some difficulties with his oxygenation. Based on this, some vent changes were performed. Note that the chest x-ray had shown further atelectasis of the right upper lobe and based on that I put the patient a PEEP of 12 and A tidal volume of 550 and the rate of 16 with an FiO2 ranging between 50-100%. He subsequently improved. This morning, there was expression of the right upper lobe. Right lower lobe was somewhat atelectatic and based on that I performed another bronchoscopy. During the bronchoscopy DVT was found to be high in the trachea and was pushed back again and was advanced and positioned at 2 cm above the shanice. Copious amount of thick purulent mucous plugs was suctioned again. The previously obtain samples from the lungs are still not showing any microbial growth and the patient is still in the correlation of Zosyn and vancomycin. Medically he is doing well this morning. No hypotension. No fever. No signs of ongoing septicemia. He is producing a review amount of output. He is on a low-dose Primacor for cardiac augmentation. The pleural chest tubes are both in place. The Mayfield-Candace catheter is also in place. He is receiving tube feeds. Patient was reevaluated today on 04/23/2016, and his chest x-ray continues to show some atelectasis involving the right upper lobe and right lower lobe, hence the patient underwent repeat bronchoscopy today with minimal secretions noted in the airways. Washing of the right upper lobe right middle lobe and right lower lobe was performed. No evidence of mucous plugs. Patient remains on the same ventilator settings, however I plan to cut down the FiO2 to 40%, and placed on a PEEP of 8. Clearly the patient is not ready for any weaning trials at this point considering the recurrent collapse of the right lung. ABG today showed a pO2 of 105 pCO2 of 41 pH of 7.41. Hemoglobin is 7.8 WBC count is 10.6. BUN is 33 creatinine is 1.10. Patient remains on enteral feeding via nasogastric tube. Ventilator settings are assist control rate of 16 tidal volume of 550 FiO2 is 40% and PEEP is 8. Objective - Vital Signs Vital signs: Vital Signs Temp 97.8 F 04/23/16 08:00 Pulse 82 04/23/16 12:07 Resp 12 04/23/16 10:00 BP 102/54 04/23/16 04:00 Pulse Ox 96 04/23/16 10:00 Intake & Output 12/04/23/16 04/23/16 18:59 06:59 18:59 Intake Total 9191.803 8601.432 192.208 Output Total 2795 2470 65 Balance -1140.015 -188.568 127.208 Weight 134.8 kg 128.7 kg 128.7 kg Intake: IV 538 393.0 31 .9NS Cardiac Output 60 0.9NS Pressure Bag 108 78 6 Lactated Ringers 1,000 ml 270 265 25 @ 30 mls/hr IV .Q24H ADAM Rx#:[id number] Piperacillin-Tazobactam 3 100 50.0 .375 gm In Dextrose/Water 1 50ml.bag @ 12.5 mls/hr IVPB Q8HR ADAM Rx#: [id number] Intake, IV Titration 511.985 828.432 91.208 Amount Milrinone-D5w Pmx 20 mg 49.531 96.159 41.208 In Dextrose/Water 1 100ml .bag @ 0.3 MCG/KG/MIN 12. 13 mls/hr IV .Q8H15M ADAM Rx#:[id number] Propofol 500 mg In Empty 212.454 231.273 50 Bag 1 bag @ Titrate IV . Q0M ADAM Rx#:[id number] Vancomycin 2,000 mg In 250 Sodium Chloride 0.9% 500 ml @ 167 mls/hr IVPB Q16H ADAM Rx#:[id number] Vancomycin 2,250 mg In 501 Sodium Chloride 0.9% 500 ml @ 167 mls/hr IVPB Q16H ADAM Rx#:[id number] Tube Feeding 545 940 70 Other 60 120 Output: Chest Tube Drainage 270 230 20 Left Pleural 100 100 0 Right Pleural 170 130 20 Drainage 15 10 Right Calf 15 10 Urine 2510 2230 45 Other: Voiding Method Indwelling Catheter Indwelling Catheter ABP, PAP, CO, CI - Last Documented Arterial Blood Pressure 96/40 Pulmonary Artery Pressure 31/25 Cardiac Output 7 Cardiac Index 3.0 - Exam Intubated on the mechanical ventilator., Comfortable sedated with Diprivan.Head exam was generally normal. There was no scleral icterus or corneal arcus. Mucous membranes were moist. Neck is supple there is a right Mayfield-Candace catheter in place. No goiter or neck masses. Lungs are diminished bilaterally otherwise there is some few scattered expiratory wheezes. Heart sounds are regular, positive S1-S2 along with that there is a cardiac rub. Chest tubes are all in good location.Abdominal exam revealed normal bowel sounds. The abdomen was soft, non-tender, and without masses, organomegaly, or appreciable enlargement of the abdominal aorta. Extremities showed diminished pulses and there is no cyanosis or clubbing at this point. Neurologically the patient is sedated. - Labs CBC & Chem 7: 04/23/16 03:50 04/23/16 06:20 Labs: Abnormal Lab Results - Last 24 Hours (Table) 04/18/16 04/18/16 04/18/16 Range/Units 08:57 11:02 11:35 RBC (4.30-5.90) m/uL Hgb (13.0-17.5) gm/dL Hct (39.0-53.0) % Plt Count (150-450) k/uL Neutrophils # (Manual) (1.3-7.7) k/uL Nucleated RBCs (0-0) /100 WBC ABG pH 7.51 H (7.35-7.45) ABG pCO2 32 L (35-45) mmHg ABG pO2 132 H 376 H (83-108) mmHg ABG HCO3 26 H 26 H 27 H (21-25) mmol/L ABG Total CO2 27 H 27 H 29 H (19-24) mmol/L ABG O2 Saturation 99.3 H 97.6 H 100.0 H (94-97) % ABG Hematocrit 31 L (34.0-46.0) % ABG Potassium (3.4-4.5) mmol/L Sodium (137-145) mmol/L Chloride (98-107) mmol/L BUN (9-20) mg/dL Glucose (74-99) mg/dL POC Glucose (mg/dL) (75-99) mg/dL Calcium (8.4-10.2) mg/dL Total Protein (6.3-8.2) g/dL Albumin (3.5-5.0) g/dL Arterial Blood Potassium (3.4-4.5) mmol/L 04/18/16 04/18/16 04/18/16 Range/Units 12:10 12:51 13:22 RBC (4.30-5.90) m/uL Hgb (13.0-17.5) gm/dL Hct (39.0-53.0) % Plt Count (150-450) k/uL Neutrophils # (Manual) (1.3-7.7) k/uL Nucleated RBCs (0-0) /100 WBC ABG pH (7.35-7.45) ABG pCO2 (35-45) mmHg ABG pO2 221 H 310 H 275 H (83-108) mmHg ABG HCO3 27 H 27 H 26 H (21-25) mmol/L ABG Total CO2 28 H 28 H 28 H (19-24) mmol/L ABG O2 Saturation 99.8 H 99.9 H 99.9 H (94-97) % ABG Hematocrit 29 L 29 L 28 L (34.0-46.0) % ABG Potassium 5.1 H 4.7 H 5.0 H (3.4-4.5) mmol/L Sodium (137-145) mmol/L Chloride (98-107) mmol/L BUN (9-20) mg/dL Glucose (74-99) mg/dL POC Glucose (mg/dL) (75-99) mg/dL Calcium (8.4-10.2) mg/dL Total Protein (6.3-8.2) g/dL Albumin (3.5-5.0) g/dL Arterial Blood Potassium 5.1 H 4.7 H 5.0 H (3.4-4.5) mmol/L 04/18/16 04/18/16 04/18/16 Range/Units 13:54 14:32 15:09 RBC (4.30-5.90) m/uL Hgb (13.0-17.5) gm/dL Hct (39.0-53.0) % Plt Count (150-450) k/uL Neutrophils # (Manual) (1.3-7.7) k/uL Nucleated RBCs (0-0) /100 WBC ABG pH 7.34 L (7.35-7.45) ABG pCO2 47 H (35-45) mmHg ABG pO2 321 H 290 H 55 L (83-108) mmHg ABG HCO3 26 H (21-25) mmol/L ABG Total CO2 27 H 25 H 26 H (19-24) mmol/L ABG O2 Saturation 99.9 H 99.9 H 86.0 L (94-97) % ABG Hematocrit 26 L 26 L 26 L (34.0-46.0) % ABG Potassium 4.8 H (3.4-4.5) mmol/L Sodium (137-145) mmol/L Chloride (98-107) mmol/L BUN (9-20) mg/dL Glucose (74-99) mg/dL POC Glucose (mg/dL) (75-99) mg/dL Calcium (8.4-10.2) mg/dL Total Protein (6.3-8.2) g/dL Albumin (3.5-5.0) g/dL Arterial Blood Potassium 4.8 H (3.4-4.5) mmol/L 04/18/16 04/22/16 04/22/16 Range/Units 15:38 15:15 16:10 RBC (4.30-5.90) m/uL Hgb (13.0-17.5) gm/dL Hct (39.0-53.0) % Plt Count (150-450) k/uL Neutrophils # (Manual) (1.3-7.7) k/uL Nucleated RBCs (0-0) /100 WBC ABG pH 7.46 H (7.35-7.45) ABG pCO2 (35-45) mmHg ABG pO2 62 L (83-108) mmHg ABG HCO3 (21-25) mmol/L ABG Total CO2 25 H 25 H (19-24) mmol/L ABG O2 Saturation 90.0 L (94-97) % ABG Hematocrit 29 L (34.0-46.0) % ABG Potassium (3.4-4.5) mmol/L Sodium (137-145) mmol/L Chloride (98-107) mmol/L BUN (9-20) mg/dL Glucose (74-99) mg/dL POC Glucose (mg/dL) 123 H (75-99) mg/dL Calcium (8.4-10.2) mg/dL Total Protein (6.3-8.2) g/dL Albumin (3.5-5.0) g/dL Arterial Blood Potassium (3.4-4.5) mmol/L 04/22/16 04/23/16 04/23/16 Range/Units 19:57 00:09 03:46 RBC (4.30-5.90) m/uL Hgb (13.0-17.5) gm/dL Hct (39.0-53.0) % Plt Count (150-450) k/uL Neutrophils # (Manual) (1.3-7.7) k/uL Nucleated RBCs (0-0) /100 WBC ABG pH (7.35-7.45) ABG pCO2 (35-45) mmHg ABG pO2 (83-108) mmHg ABG HCO3 (21-25) mmol/L ABG Total CO2 (19-24) mmol/L ABG O2 Saturation (94-97) % ABG Hematocrit (34.0-46.0) % ABG Potassium (3.4-4.5) mmol/L Sodium (137-145) mmol/L Chloride (98-107) mmol/L BUN (9-20) mg/dL Glucose (74-99) mg/dL POC Glucose (mg/dL) 139 H 133 H 143 H (75-99) mg/dL Calcium (8.4-10.2) mg/dL Total Protein (6.3-8.2) g/dL Albumin (3.5-5.0) g/dL Arterial Blood Potassium (3.4-4.5) mmol/L 04/23/16 04/23/16 04/23/16 Range/Units 03:50 03:50 04:56 RBC 2.53 L (4.30-5.90) m/uL Hgb 7.8 L (13.0-17.5) gm/dL Hct 23.4 L (39.0-53.0) % Plt Count 127 L (150-450) k/uL Neutrophils # (Manual) 8.2 H (1.3-7.7) k/uL Nucleated RBCs 1 H (0-0) /100 WBC ABG pH (7.35-7.45) ABG pCO2 (35-45) mmHg ABG pO2 (83-108) mmHg ABG HCO3 26 H (21-25) mmol/L ABG Total CO2 27 H (19-24) mmol/L ABG O2 Saturation 98.0 H (94-97) % ABG Hematocrit (34.0-46.0) % ABG Potassium (3.4-4.5) mmol/L Sodium 146 H (137-145) mmol/L Chloride 108 H (98-107) mmol/L BUN 33 H (9-20) mg/dL Glucose 141 H (74-99) mg/dL POC Glucose (mg/dL) (75-99) mg/dL Calcium 7.6 L (8.4-10.2) mg/dL Total Protein 4.4 L (6.3-8.2) g/dL Albumin 2.3 L (3.5-5.0) g/dL Arterial Blood Potassium (3.4-4.5) mmol/L 04/23/16 04/23/16 Range/Units 08:20 11:47 RBC (4.30-5.90) m/uL Hgb (13.0-17.5) gm/dL Hct (39.0-53.0) % Plt Count (150-450) k/uL Neutrophils # (Manual) (1.3-7.7) k/uL Nucleated RBCs (0-0) /100 WBC ABG pH (7.35-7.45) ABG pCO2 (35-45) mmHg ABG pO2 (83-108) mmHg ABG HCO3 (21-25) mmol/L ABG Total CO2 (19-24) mmol/L ABG O2 Saturation (94-97) % ABG Hematocrit (34.0-46.0) % ABG Potassium (3.4-4.5) mmol/L Sodium (137-145) mmol/L Chloride (98-107) mmol/L BUN (9-20) mg/dL Glucose (74-99) mg/dL POC Glucose (mg/dL) 150 H 128 H (75-99) mg/dL Calcium (8.4-10.2) mg/dL Total Protein (6.3-8.2) g/dL Albumin (3.5-5.0) g/dL Arterial Blood Potassium (3.4-4.5) mmol/L Microbiology - Last 24 Hours (Table) 04/20/16 23:39 Gram Stain - Final Sputum Sputum Culture - Final Eikenella species Assessment and Plan Plan: 1 shortness of breath essentially of a cardiac in nature. 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 CTA of the chest shows changes consistent with CHF with small bilateral pleural effusion and groundglass pulmonary infiltrates consistent with interstitial edema/CHF. On 04/18/2016, the patient is being seen postop. The patient underwent three- vessel bypass surgery and aortic valve replacement. Currently intubated on mechanical ventilator. Patient is on a multitude of pressors including a combination of norepinephrine infusion, vasopressin, Gal-Synephrine and Primacor. Most recent cardiac index at 2.7. Chest tubes are all in place. On 04/19/2016, the patient is being seen in follow-up. The patient was taken to the operating room force postoperative bleeding. The patient was taken back to the operating room and the patient was found to have bleeding from the ventricular pacing wire site in the right ventricle. He was given. He dad a resternotomy after the control of bleeding and currently is still in the process of being stabilized and weaned off the mechanical ventilator. During the process, he had a partial right upper lobe collapse which seems to be expanded on today's chest x-ray. He remains on a high degree of PEEP at 12 and he is having some minor air leak through the based on the chest tube. Lungs are well expanded and there is no evidence of pneumothorax. Hemodynamically better on lower doses of norepinephrine infusion and Primacor and the patient is currently off vasopressin and Gal-Synephrine. Sedated on a mechanical ventilator. Hemoglobin is stable in addition. On 04/20/2016 the patient is suspected to have a right lower lobe pneumonia. Morning chest x-ray showed a right lower lobe atelectasis and based on that a bronchoscopy was done and there was copious amount of respiratory secretions that was purulent of buying the bronchus intermedius and the right lower lobe. Therapeutic airway suctioning was done. Bronchial washing was obtained. Samples were sent for cultures and the patient was started on a broad-spectrum antibiotics and currently is on a combination of Zosyn and vancomycin. On 04/21/2016, the patient is still on a mechanical ventilator. The patient has developed right lung pneumonia with signs of sepsis. His chest x-ray is showing volume loss and atelectatic changes in the right lung base and the bronchoscopy and the bronchioloalveolar lavage was done and copious amount of purulent respiratory secretions were aspirated from the right lung and a repeat bronchoscopy will be done today based on the presence of ongoing volume loss. Patient is covered with a combination of Zosyn and vancomycin. He has a low- grade fever. He is hemodynamically doing well without any ongoing pressor dependence. Cardiac index is at 1.8 and the patient is on Primacor and the dose is being titrated. The mediastinal chest tubes have been removed. The patient is still on 8 of PEEP and FiO2 of 50%. On 04/22/2016, the patient underwent another bronchoscopy. This is the third bronchoscopy during which thick purulent mucous plugs are being aspirated from the right lung. Airway patency was again achieved. I consulted amount of secretions in the right lung is improved compared to the earlier bronchoscopy. Patient remains on examination Zosyn and vancomycin. The PEEP has been dropped down to 8 and a weight drop it down to 5 as long as the patient's oxidation improved. The patient is hemodynamically stable. He is on low-dose Primacor to augment the cardiac output. Chest tubes are in place. Mayfield-Candace catheter in place and this will be removed. On 04/23/2016, patient underwent another bronchoscopy, and the findings were less impressive compared to the findings noted above by Dr. Sales. Less. And secretions noted, and no significant mucous plugs noted in the airways. Washings of the right upper lobe and right middle lobe as well as right lower lobe were done. Patient remains on antibiotics in the form of Zosyn and vancomycin. Remains on PEEP of 8, and FiO2 of 40%. Not quite ready for weaning at this point, but I would likely address weaning trials in the next 24 hours. 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 8 osteoarthritis 9 acute kidney injury, improved 10 obesity 11 postoperative anemia the patient was given a unit of packed RBC and the current hemoglobin is 7.8 Plan Continue vent support. Repeat chest x-ray in a.m. PEEP is presently at 8 and FiO2 is 40%. The patient will continue same antibiotic coverage. Patient is status post to be bronchoscopy on 04/23, and the findings were noted in the operative report. we'll continue supportive care. Remove the Mayfield-Candace catheter. This is a critically care evaluation that was done in 35 minutes excluding time to do any procedures. Time with Patient: Greater than 30 Time with Patient: Greater than 30
[2016-04-23 16:05] LABS: Glucose,Whole Blood 117 mg/dL (75-99)
[2016-04-23] MEDS ORDERED: PROPOFOL 50 ML IV ONE (18:05)
[2016-04-23 20:42] LABS: Glucose,Whole Blood 135 mg/dL (75-99)
--- NOTE | 2016-04-23 21:51 | PN ---
DATE OF SERVICE: 04/23/2016 INTERVAL HISTORY: Mr. Mccracken is a 76-year-old male who was admitted to the hospital, essentially admitted with a known history of coronary artery disease, COPD and morbid obesity, was admitted to the hospital with ST elevated PR. Patient underwent cardiac catheterization and found to have triple-vessel disease. The patient underwent coronary artery bypass graft during this admission Otherwise, the patient is still on milrinone drip, off pressor support. Patient underwent bronchoscopy with washings of the right upper and lower lobes done today. Patient currently still remains on ventilator support with FiO2 of 40% and PEEP of 8. Pulmonary and Cardiology and Cardiothoracic Surgery are following this patient. Currently on antibiotics in the form of vancomycin and Zosyn. Patient is still having secretions from the chest tubes. Complete review of systems could not be obtained from the patient. Current medications include: 1. Tylenol. 2. [place] 5. 3. Mucomyst. 4. Albuterol-ipratropium. 5. Aspirin. 6. Atorvastatin. 7. Dulcolax. 8. Peridex. 9. Plavix. 10. Docusate. 11. Lasix. 12. Heparin subcu here. 13. Insulin sliding scale. 14. Milk of magnesia. 15. Metoprolol. 16. Milrinone drip. 17. Morphine sulfate. 18. Protonix. 19. Zofran. 20. Zosyn. 21. Propofol. 22. Potassium chloride. 23. Vancomycin. PHYSICAL EXAMINATION: A 76-year-old male currently sedated and intubated. VITALS: Blood pressure is 119/52, pulse is 82, respirations 16, temperature afebrile. Pulse ox is saturating well on 40% FiO2 on mechanical ventilator. HEENT: Atraumatic, normocephalic. Endotracheal tube in position, currently sedated. LUNGS: Bilateral air entry diminished. Decreased breath sounds basally. Minimal crackles positive. CVS: S1, S2 heard. No murmurs. No gallop. ABDOMEN: Soft. Bowel sounds are present. EXTREMITIES: No edema. Pulses palpable bilaterally. CHEST WALL: Wound and chest tubes in place. ORTHO RN: Currently sedated and intubated. No focal deficit noted. LABORATORY DATA: WBC 10.6, hemoglobin 7.8, platelets 127. Sodium 146, potassium 3.8, chloride 108, bicarb is 27, BUN 33, creatinine 1.1, blood sugar is 141. Calcium 7.6, phosphorus 3.3, magnesium 2.3. Total bilirubin is 0.7, AST is 36, ALT is 41, alk phos 122. Albumin 2.3. IMPRESSION: 1. Acute hypoxic respiratory failure, status post cardiac surgery, cardiogenic shock. Currently on milrinone drip, off pressor support. 2. Coronary artery disease. 3. Acute ST-elevated myocardial infarction on admission. 4. Status post coronary artery bypass graft during this admission. 5. Congestive heart failure with ejection fraction 20% to 25%. 6. Chronic obstructive pulmonary disease. 7. Osteoporosis. 8. Morbid obesity with body mass index of 40.5. 9. Acute kidney injury, improved. 10. Questionable right atrial thrombus on echocardiogram, at least initially. 11. Acute blood loss anemia from recent surgery. Hemoglobin is stable at this time. 12. Benign prostatic hypertrophy. DISCUSSION AND PLAN: The patient will be continued on ventilator support and patient underwent bronchoscopy again today with bronchial washings. Currently maintained and will be continued on mechanical ventilation with PEEP of 8 and FiO2 of 40%. Continue with the milrinone support. Continue with the empiric antibiotics in the form of vancomycin and Zosyn. Repeat chest x-ray today. Continue with current management. Prognosis is guarded. Follow up H and H. Further recommendations based on the clinical course. Cardiology and Cardiothoracic Surgery and Pulmonary are following this patient. Did discuss with his at bedside.
[2016-04-23] MEDS: SODIUM CHLORIDE 0.9% 1,000 ML IV SCH (22:09)
--- NOTE | 2016-04-23 22:21 | PCN ---
Bronchoscopy and washing of secretions from the right upper lobe, right middle lobe and right lower lobe. PREOPERATIVE DIAGNOSIS: Intermittent right lower lobe collapse secondary to endobronchial mucous plugs. POSTOPERATIVE DIAGNOSIS: Intermittent right lower lobe collapse secondary to endobronchial mucous plugs. ANESTHESIA USED: Patient was already on propofol, and he was given 1 mg of Dilaudid IV push. PROCEDURE: Patient was already on mechanical ventilation; hence, an adapter was applied to the endotracheal tube. In the meantime, patient was already on propofol, and he was given Dilaudid 1 mg IV push. We monitored his O2 saturation continuously. Blood pressure was also monitored continuously and cardiac rhythm was monitored continuously. Using the adapter, the bronchoscope was advanced through the adapter down to the distal end of the endotracheal tube, which was about to 3 cm above the shanice. Then thorough examination was done of the shanice, right upper lobe, right middle lobe and right lower lobe as well as left upper lobe, lingula and left lower lobe. Minimal purulent secretions were noted in the right upper lobe, right middle lobe and right lower lobe. These were suctioned easily and no significant mucous plugs were noted. Left side was also examined. Minimal secretions were noted in the left lower lobe and these were also suctioned. The procedure was well tolerated. No evidence of any immediate complications.
[2016-04-23 23:51] LABS: Glucose,Whole Blood 129 mg/dL (75-99)
[2016-04-24] MEDS: MILRINONE-D5W PMX 20 MG in DEXTROSE/WATER 1 100ML.BAG IV SCH ×5 (02:06→21:57)
[2016-04-24] MEDS: PROPOFOL 500 MG in EMPTY BAG 1 BAG IV SCH ×6 (02:29→21:50)
[2016-04-24 03:13] LABS: Glucose,Whole Blood 121 mg/dL (75-99)
[2016-04-24] MEDS: IPRATROPIUM-ALBUTEROL 3 ML NEB INHALATION SCH ×6 (03:15→23:24)
[2016-04-24 03:26] LABS: Basophils # (A) 0.1 k/uL (0-0.2); Basophils % (A) 1 %; CH 30.5; CHCM 32.7; Eosinophils # (A) 0.3 k/uL (0-0.7); Eosinophils % (A) 2 %; HDW 3.17; HGB 7.8 gm/dL (13.0-17.5); Luc # (Auto) 0.19; Luc % (Auto) 2; Lymphocytes # (A) 1.2 k/uL (1.0-4.8); Lymphocytes % (A) 11 %; MCH 29.3 pg (25.0-35.0); MCHC 31.3 g/dL (31.0-37.0); MCV 93.7 fL (80.0-100.0); Mean Platelet Volume 8.6; Monocytes # (A) 0.8 k/uL (0-1.0); Monocytes % (A) 8 %; Neutrophils # (A) 8.1 k/uL (1.3-7.7); Neutrophils % (A) 76 %; RBC 2.67 m/uL (4.30-5.90); RDW 14.8 % (11.5-15.5); WBC 10.7 k/uL (3.8-10.6); WBC (Perox) 11.65
[2016-04-24] MEDS: INSULIN LISPRO (humaLOG) 300 UNIT/3 ML VIAL SQ SCH ×6 (03:26→23:46)
[2016-04-24 03:39] LABS: Ionized Calcium 4.8 mg/dL (4.5-5.3)
[2016-04-24 03:49] LABS: Magnesium 2.3 mg/dL (1.6-2.3); Phosphorous 3.6 mg/dL (2.5-4.5)
[2016-04-24] MEDS: HYDROcodone/APAP 5-325MG 1 EACH TAB PO PRN ×2 (05:03→20:33)
[2016-04-24 05:04] LABS: Anion Gap 7 mmol/L; Blood Urea Nitrogen 37 mg/dL (9-20); Calcium 8.1 mg/dL (8.4-10.2); Carbon Dioxide 31 mmol/L (22-30); Chloride 108 mmol/L (98-107); Glucose 128 mg/dL (74-99); Non-African American GFR(MDRD) >60 (>60 ml/min/1.73 sqM); Potassium 3.9 mmol/L (3.5-5.1); Sodium 146 mmol/L (137-145)
[2016-04-24] MEDS: MAGNESIUM HYDROXIDE 2,400 MG/10 ML CUP PO PRN ×2 (05:04→20:33)
[2016-04-24] MEDS: VANCOMYCIN 2,250 MG in SODIUM CHLORIDE 0.9% 500 ML IVPB SCH ×2 (05:07→21:47)
[2016-04-24] MEDS ORDERED: POTASSIUM CHLORIDE ORAL LIQUID 40 MEQ/30 ML CUP NG-TUBE SCH (06:00)
--- NOTE | 2016-04-24 07:49 | XR ---
EXAMINATION TYPE: XR chest 1V portable DATE OF EXAM: 04/24/2016 6:34 AM CLINICAL HISTORY: Difficulty breathing progress study. Postoperative cardiac surgery. TECHNIQUE: Single AP portable upright view of the chest is obtained. COMPARISON: Chest x-ray from one day earlier FINDINGS: An endotracheal tube, orogastric tube, right internal jugular cordis sheath, and bilateral chest tubes are all redemonstrated. Sternal wires are again seen. There is persistent cardiomegaly with atherosclerotic and ectatic thoracic aorta as well as small trinity ateral pleural effusions and mild central vascular congestion as well as associated bibasilar atelect asis and/or infiltrate all redemonstrated. No pneumothorax is seen bilaterally. Degenerative change r ight glenohumeral joint is redemonstrated. IMPRESSION: Overall stable findings, cardiomegaly with mild central vascular congestion and small b ilateral pleural effusions consistent with CHF exacerbation. Associated bibasilar atelectasis and/or infiltrate is noted.
[2016-04-24] MEDS: ACETYLCYSTEINE 800 MG/4 ML VIAL INHALATION SCH ×4 (08:07→19:33)
[2016-04-24 08:30] LABS: ABG HCO3 27 mmol/L (21-25); ABG PCO2 41 mmHg (35-45); ABG PH 7.44 (7.35-7.45); ABG PO2 92 mmHg (83-108); ABG TCO2 29 mmol/L (19-24)
[2016-04-24 08:31] LABS: ABG Base Excess 3.3 mmol/L; ABG Oxygen Saturation 97.4 % (94-97)
--- NOTE | 2016-04-24 08:59 | P.PN ---
Subjective Principal diagnosis: POD: #6, triple vessel coronary artery bypass grafting using the left internal mammary artery to the left anterior descending coronary artery, a reverse greater saphenous vein graft from the aorta to the early arising posterior descending coronary artery, a reverse greater saphenous vein graft from the aorta to the intramyocardial ramus intermedius artery proximally. 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 Intraoperative transesophageal echocardiogram and Epi-aortic scanning. Endoscopic vein harvesting of the right greater saphenous vein. #6 Reexploration for postoperative bleeding. Patient remains sedated on mechanical ventilation with a propofol drip at 20 mcg /kg/min. per nursing patient does wake up off sedation and follows commands and moves all extremities. Objective - Vital Signs Vital signs: T-max 99.8 degrees Fahrenheit Vital Signs Temp 99.6 F 04/24/16 08:00 Pulse 89 04/24/16 08:00 Resp 22 04/24/16 08:00 BP 113/54 04/24/16 04:00 Pulse Ox 97 04/24/16 08:00 Intake & Output 04/23/16 04/24/16 04/24/16 18:59 06:59 18:59 Intake Total 812.403 1442.061 8 Output Total 2055 2405 120 Balance -1330.292 -288.939 -112 Weight 128.7 kg 126.4 kg Intake: IV 348.5 481.0 8 0.9 120 325 5 0.9NS Pressure Bag 66 81 3 Lactated Ringers 1,000 ml 100 @ 30 mls/hr IV .Q24H [facility] Rx#:[id number] Piperacillin-Tazobactam 3 62.5 75.0 .375 gm In Dextrose/Water 1 50ml.bag @ 12.5 mls/hr IVPB Q8HR [facility] Rx#: [id number] Intake, IV Titration 141.208 555.061 Amount Milrinone-D5w Pmx 20 mg 41.208 74.639 In Dextrose/Water 1 100ml .bag @ 0.3 MCG/KG/MIN 12. 13 mls/hr IV .Q8H15M [facility] Rx#:[id number] Propofol 500 mg In Empty 100 146.422 Bag 1 bag @ Titrate IV . Q0M [facility] Rx#:[id number] Vancomycin 2,250 mg In 334 Sodium Chloride 0.9% 500 ml @ 167 mls/hr IVPB Q16H [facility] Rx#:[id number] Tube Feeding 235 990 Other 90 Output: Chest Tube Drainage 110 140 20 Left Pleural 60 70 0 Right Pleural 50 70 20 Urine 5 2265 100 Other: Voiding Method Indwelling Catheter Indwelling Catheter ABP, PAP, CO, CI - Last Documented Arterial Blood Pressure 130/51 Pulmonary Artery Pressure 31/25 Cardiac Output 7 Cardiac Index 3.0 - Constitutional General appearance: Present: no acute distress, obese - Respiratory Respiratory: bilateral: rhonchi (Bilateral bases) - Cardiovascular Heart rate: 92 (Bedside monitor showing normal sinus rhythm rare. PVCs) Rhythm: regular Heart sounds: normal: S1, S2 - Peripheral edema leg Peripheral Edema Comment(s): Generalized edema noted. Peripheral Edema: bilateral: 3+, Pitting - Peripheral pulses radial pulse Peripheral Pulses: bilateral: Normal dorsalis pedis Peripheral Pulses: bilateral: Normal - Gastrointestinal Gastrointestinal Comment(s): OG tube in place. Patient's receiving vital high-protein at 55 mL per hour which is goal. No bowel movement since surgery, patient has been receiving MiraLAX General gastrointestinal: Present: decreased bowel sounds - Genitourinary Genitourinary Comment(s): Scrotal and penile edema present. Patient has a Nava catheter for accurate I and O, draining clear yellow urine. Male genitourinary: scrotal edema - Musculoskeletal Musculoskeletal Comment(s): Off sedation patient is moving all 4 extremities. - Psychiatric Psychiatric Comment(s): Patient remains sedated on propofol drip. Off sedation patient follows commands per nursing. - Allied health notes Allied health notes reviewed: nursing - Labs CBC & Chem 7: 04/24/16 03:15 04/24/16 06:55 Labs: Abnormal Lab Results - Last 24 Hours (Table) 04/23/16 04/23/16 04/23/16 Range/Units 08:20 11:47 16:03 WBC (3.8-10.6) k/uL RBC (4.30-5.90) m/uL Hgb (13.0-17.5) gm/dL Hct (39.0-53.0) % Neutrophils # (1.3-7.7) k/uL Sodium (137-145) mmol/L Chloride (98-107) mmol/L Carbon Dioxide (22-30) mmol/L BUN (9-20) mg/dL Glucose (74-99) mg/dL POC Glucose (mg/dL) 150 H 128 H 117 H (75-99) mg/dL Calcium (8.4-10.2) mg/dL 04/23/16 04/23/16 04/24/16 Range/Units 20:39 23:48 03:10 WBC (3.8-10.6) k/uL RBC (4.30-5.90) m/uL Hgb (13.0-17.5) gm/dL Hct (39.0-53.0) % Neutrophils # (1.3-7.7) k/uL Sodium (137-145) mmol/L Chloride (98-107) mmol/L Carbon Dioxide (22-30) mmol/L BUN (9-20) mg/dL Glucose (74-99) mg/dL POC Glucose (mg/dL) 135 H 129 H 121 H (75-99) mg/dL Calcium (8.4-10.2) mg/dL 04/24/16 04/24/16 Range/Units 03:15 03:15 WBC 10.7 H (3.8-10.6) k/uL RBC 2.67 L (4.30-5.90) m/uL Hgb 7.8 L (13.0-17.5) gm/dL Hct 25.0 L (39.0-53.0) % Neutrophils # 8.1 H (1.3-7.7) k/uL Sodium 146 H (137-145) mmol/L Chloride 108 H (98-107) mmol/L Carbon Dioxide 31 H (22-30) mmol/L BUN 37 H (9-20) mg/dL Glucose 128 H (74-99) mg/dL POC Glucose (mg/dL) (75-99) mg/dL Calcium 8.1 L (8.4-10.2) mg/dL Microbiology - Last 24 Hours (Table) 04/20/16 23:39 Gram Stain - Final Sputum Sputum Culture - Final Eikenella species Short CBC 04/24/16 Range/Units 03:15 WBC 10.7 H (3.8-10.6) k/uL Hgb 7.8 L (13.0-17.5) gm/dL Hct 25.0 L (39.0-53.0) % Plt Count 155 (150-450) k/uL Neutrophils # 8.1 H (1.3-7.7) k/uL BMP 04/24/16 04/24/16 03:15 06:55 Sodium 146 H Potassium 3.9 4.1 Chloride 108 H Carbon Dioxide 31 H BUN 37 H Creatinine 1.10 Glucose 128 H Calcium 8.1 L - Imaging and Cardiology Chest x-ray: image reviewed Assessment and Plan (1) Congestive heart failure Narrative/Plan: Remains on Primacor drip at 0.15 mcg/kg/m. Received Lasix 40 mg IV push every 12 hours 4 doses last dose last night at 9 PM's. Status: Acute (2) NSTEMI (non-ST elevated myocardial infarction) Narrative/Plan: Continue Lopressor 25 mg per OG tube twice a day. Continue aspirin, Plavix, heparin and statin Status: Acute (3) Status post aorto-coronary artery bypass graft Narrative/Plan: Maintain right and left pleural chest tubes. Epicardial pacemaker wires will remain in. Mechanical ventilator management and antibiotic management per Dr. Oseguera. SCDs and KARON hose in place for DVT prophylaxis. Protonix in place for GI prophylaxis Status: Acute (4) Hypertension Status: Acute (5) Obesity, Class III, BMI 40-49.9 (morbid obesity) Status: Acute (6) Postoperative anemia due to acute blood loss Status: Acute (7) Postoperative acute respiratory failure Status: Acute Plan: Per discussion with Dr. Casey will start mechanical ventilation weaning trial, will DC right chest tube, we'll continue vancomycin and Zosyn as prescribed for positive sputum culture Eikinella, will continue Primacor 0.15 mcg/kg/m, suppository for constipation with no bowel movement since surgery. Time with Patient: Greater than 30
--- NOTE | 2016-04-24 09:01 | P.ARTDOP ---
Arterial Doppler LOWER EXTREMITY ARTERIAL DOPPLER: DATE OF SERVICE: 04/16/2016 Reason for study: Pre-CABG. Doppler waveforms: Multiphasic bilaterally throughout. Pulse volume recording: []. Pressure gradients: None. Ankle-brachial indices: Greater than 1 bilaterally. Toe pressures: [] on the right, [] on the left Impression: Normal study.
--- NOTE | 2016-04-24 09:03 | P.VSCSTY ---
Greater Saphenous Vein Mapping This is bilateral lower extremity greater saphenous vein mapping. Date of service 04/16/2016 Vein quality and ultrasound appearance normal. Vein size groin right 6.5 x 4.4 groin left 5.6 x 4.6 High thigh right 6.1 x 3.9 high thigh left 5.9 x 4.5 Mid thigh right 5.4 x 3.4 mid thigh left 4.6 x 3.0 Above-knee right 4.6 x 3.1 above- knee left 4.0 x 3.2 Below knee right 4.0 x 2.6 below-knee left 4.6 x 2.6 Mid calf right 3.5 x 2.5 mid calf left 3.5 x 2.7 Ankle right 2.9 x 2.0 ankle left 3.9 x 2.5 Impression usable bilateral greater saphenous vein..
[2016-04-24] MEDS: ATORVASTATIN 40 MG TAB PO SCH (09:27)
[2016-04-24] MEDS: CLOPIDOGREL 75 MG TAB PO SCH (09:27)
[2016-04-24] MEDS: DOCUSATE ORAL SOLN 100 MG/10 ML CUP PO SCH (09:28)
[2016-04-24] MEDS: HEPARIN SODIUM,PORCINE 5,000 UNIT/ML 1 ML VIAL SQ SCH ×3 (09:28→23:46)
[2016-04-24] MEDS: CHLORHEXIDINE GLUCONATE 15 ML CUP MUCOUS MEM SCH ×2 (09:28→20:32)
[2016-04-24] MEDS: METOPROLOL TARTRATE 25 MG TAB PO SCH ×2 (09:28→20:33)
[2016-04-24] MEDS: ASPIRIN 81 MG CHEW PO SCH (09:28)
[2016-04-24] MEDS: PIPERACILLIN-TAZOBACTAM 3.375 GM in DEXTROSE/WATER 1 50ML.BAG IVPB SCH ×2 (09:32→17:05)
[2016-04-24] MEDS: PANTOPRAZOLE 40 MG/10 ML VIAL IVP SCH (09:37)
[2016-04-24 09:42] LABS: ABG HCO3 28 mmol/L (21-25); ABG PCO2 40 mmHg (35-45); ABG PH 7.45 (7.35-7.45); ABG PO2 93 mmHg (83-108); ABG TCO2 29 mmol/L (19-24)
[2016-04-24] MEDS: SODIUM CHLORIDE 0.9% 1,000 ML IV SCH (10:39)
--- NOTE | 2016-04-24 11:26 | P.PN ---
Subjective Principal diagnosis: Triple-vessel coronary artery disease, severe LV dysfunction. Right lower lobe collapse This 76-year-old male patient , post 3 vessel bypass surgery including PHAM to LAD saphenous vein graft to diagonal and ramus branches and aortic valve replacement was currently back in the intensive care unit and the patient is postop day 1. Note that the patient was taken back to the operating room after he arrived the ICU. The patient was having bleeding from his mediastinal chest tubes. Further examination was done and the bleeding site was identified and the local hemostasis was achieved and following that the patient was brought back to the intensive care unit. Overnight, the patient remains on a mechanical ventilator and he remains sedated with Diprivan. He was gradually taken off the vasopressin drip and the Gal-Synephrine drip and both are discontinued. Currently is on 8 mics of norepinephrine infusion and Primacor. He is hemodynamically stable. He remains on a mechanical ventilator and his series of chest x-rays that was done postop showed a partial atelectasis of the right upper lobe which subsequently improved. Morning's chest x-ray showed adequate expansion of the right upper lobe area and there is probably some small better pleural effusion. ET tube is in a good location. The patient has a Newhall-Candace catheter in place. There aren't pleural and mediastinal chest tubes are all in place. On the mechanical ventilator, the patient is on a assist-control mode at the rate of 20, tidal volume of 650, FiO2 of 80% and PEEP of 12. He is having some air leak within the mediastinal chest tube. Output however has improved and there is evidence of any acute bleeding. Hemoglobin is stable for now. On 04/20/2016 the patient is being seen in follow-up. The patient is still intubated on mechanical ventilator. He is an assist-control mode with a tidal volume that was dropped down to 550 and the rate of 20 with a PEEP of 8 and FiO2 of 50%. Blood gases from earlier this morning showed a component of respiratory alkalosis with a pH of 7.53 and a pCO2 of 27 and pO2 of 80. The patient demonstrated right lower lobe atelectasis on today's chest x-ray. It acutely remains in a good location. All of the chest tubes are still in place. The patient is still having air leak for the mediastinal tube. Total amount of output from old the chest tubes have been 150 mL over the past 8 hours. Hemoglobin has dropped down to 6.8 and the patient is receiving a unit of packed RBC. Otherwise no chills. No fever. No hypotension. No leukocytosis. Based on the x-ray findings, I performed a bronchoscopy on this patient and copious amount of purulent discharge secretions were identified in the right lower lobe and the bronchus intermedius. Therapeutic airway suctioning was done. The pertinent rest or secretions were sent out for cultures. Therapeutic airway washing was done. The patient was started on broad-spectrum antibiotics and he was covered with a combination of Zosyn and vancomycin. Hemodynamically, the patient was taken off the pressors. He is off the norepinephrine infusion. He is still on Primacor. He has adequate urine output and adequate cardiac output at this point. On the patient is being seen in follow-up. The patient is still has consolidation/atelectasis of the right lower lobe. There is significant volume loss on his chest x-ray. He remains on a same vent setting which includes an assist-control of 16, tidal volume of 550, FiO2 of 50% and a PEEP of 8. The blood gases showed a pH of 7.42 with a pCO2 of 37 and pO2 of 82. The patient is hemodynamically stable. He is off norepinephrine infusion. He is still on Primacor at the rate of 0.4 mics and his most recent cardiac index is at 1.8. The [facility] chest tubes are out and the patient has right pleural and left pleural chest tubes. He was bronchoscoped yesterday and copious amount of rest or secretions were suctioned from his right lung. The cultures are pending for now and meanwhile the Gram stain is shown gram-positive cocci. The patient was having on and off fever yesterday and his blood pressure was fluctuating with occasional episodes of hypotension. Episodically was requiring brief pressors and currently off norepinephrine infusion. Antibiotic coverage including a combination of Zosyn and vancomycin. He is sedated with Diprivan. A brief sedation holiday was given and he follows commands and his mentation is appropriate at this point. He is on insulin drip for blood sugar control. He' ll be initiated on tube feeds today. On 04/22/2016, the patient is being seen in follow-up. Overnight he was having some difficulties with his oxygenation. Based on this, some vent changes were performed. Note that the chest x-ray had shown further atelectasis of the right upper lobe and based on that I put the patient a PEEP of 12 and A tidal volume of 550 and the rate of 16 with an FiO2 ranging between 50-100%. He subsequently improved. This morning, there was expression of the right upper lobe. Right lower lobe was somewhat atelectatic and based on that I performed another bronchoscopy. During the bronchoscopy DVT was found to be high in the trachea and was pushed back again and was advanced and positioned at 2 cm above the shanice. Copious amount of thick purulent mucous plugs was suctioned again. The previously obtain samples from the lungs are still not showing any microbial growth and the patient is still in the correlation of Zosyn and vancomycin. Medically he is doing well this morning. No hypotension. No fever. No signs of ongoing septicemia. He is producing a review amount of output. He is on a low-dose Primacor for cardiac augmentation. The pleural chest tubes are both in place. The Newhall-Candace catheter is also in place. He is receiving tube feeds. Patient was reevaluated today on 04/23/2016, and his chest x-ray continues to show some atelectasis involving the right upper lobe and right lower lobe, hence the patient underwent repeat bronchoscopy today with minimal secretions noted in the airways. Washing of the right upper lobe right middle lobe and right lower lobe was performed. No evidence of mucous plugs. Patient remains on the same ventilator settings, however I plan to cut down the FiO2 to 40%, and placed on a PEEP of 8. Clearly the patient is not ready for any weaning trials at this point considering the recurrent collapse of the right lung. ABG today showed a pO2 of 105 pCO2 of 41 pH of 7.41. Hemoglobin is 7.8 WBC count is 10.6. BUN is 33 creatinine is 1.10. Patient remains on enteral feeding via nasogastric tube. Ventilator settings are assist control rate of 16 tidal volume of 550 FiO2 is 40% and PEEP is 8. Patient was reevaluated today on 04/24/2016, chest x-ray continues to show steady improvement, and slightly better compared to chest x-ray yesterday. Patient was given a short weaning trial on pressure support of 8 and CPAP, and according to the nurses he became quite restless, blood pressure was extremely high, and the patient was noted to be working hard to breathe. His work of breathing was noted to be significant, hence no more than half hour trial was given. Patient was placed back on assist control mode. Patient is postoperative day #6, triple vessel coronary artery bypass grafting and aortic valve replacement using a 25 mm pericardial bioprosthesis. Patient also required reexploration for postoperative bleeding. He is still on mechanical ventilation today, placed back on propofol at 20 mcg/kg/m, and he remains on Primacor. At 0.15 mcg/kg/m. Patient is receiving Lasix intermittently. ABG today showed a pO2 of 93 pCO2 of 40 pH of 7.45. Basic metabolic profile is relatively unremarkable, BUN is 37 creatinine is 1.1 Objective - Vital Signs Vital signs: Vital Signs Temp 99.6 F 04/24/16 08:00 Pulse 85 04/24/16 11:00 Resp 20 04/24/16 11:00 BP 113/54 04/24/16 04:00 Pulse Ox 97 04/24/16 11:00 Intake & Output 04/23/16 04/24/16 04/24/16 18:59 06:59 18:59 Intake Total 183.344 1149.061 258.795 Output Total 2055 2405 460 Balance -1330.292 -288.939 -201.205 Weight 128.7 kg 126.4 kg 126.4 kg Intake: IV 348.5 481.0 97.0 0.9 120 325 60 0.9NS Pressure Bag 66 81 12 Lactated Ringers 1,000 ml 100 @ 30 mls/hr IV .Q24H [facility] Rx#:[id number] Piperacillin-Tazobactam 3 62.5 75.0 25.0 .375 gm In Dextrose/Water 1 50ml.bag @ 12.5 mls/hr IVPB Q8HR [facility] Rx#: [id number] Intake, IV Titration 141.208 555.061 51.795 Amount Milrinone-D5w Pmx 20 mg 41.208 74.639 In Dextrose/Water 1 100ml .bag @ 0.3 MCG/KG/MIN 12. 13 mls/hr IV .Q8H15M [facility] Rx#:[id number] Propofol 500 mg In Empty 100 146.422 51.795 Bag 1 bag @ Titrate IV . Q0M [facility] Rx#:[id number] Vancomycin 2,250 mg In 334 Sodium Chloride 0.9% 500 ml @ 167 mls/hr IVPB Q16H [facility] Rx#:[id number] Oral 0 Tube Feeding 235 990 110 Other 90 Output: Chest Tube Drainage 110 140 30 Left Pleural 60 70 10 Right Pleural 50 70 20 Urine 1945 2265 430 Other: Voiding Method Indwelling Catheter Indwelling Catheter Indwelling Catheter # Voids 1 ABP, PAP, CO, CI - Last Documented Arterial Blood Pressure 126/52 Pulmonary Artery Pressure 31/25 Cardiac Output 7 Cardiac Index 3.0 - Exam Intubated on the mechanical ventilator., Comfortable sedated with Diprivan.Head exam was generally normal. There was no scleral icterus or corneal arcus. Mucous membranes were moist. Neck is supple there is a right Newhall-Candace catheter in place. No goiter or neck masses. Lungs are diminished bilaterally otherwise there is some few scattered expiratory wheezes. Heart sounds are regular, positive S1-S2 along with that there is a cardiac rub. Chest tubes are all in good location.Abdominal exam revealed normal bowel sounds. The abdomen was soft, non-tender, and without masses, organomegaly, or appreciable enlargement of the abdominal aorta. Extremities showed diminished pulses and there is no cyanosis or clubbing at this point. Neurologically the patient is sedated. - Labs CBC & Chem 7: 04/24/16 03:15 04/24/16 06:55 Labs: Abnormal Lab Results - Last 24 Hours (Table) 04/23/16 04/23/16 04/23/16 Range/Units 11:47 16:03 20:39 WBC (3.8-10.6) k/uL RBC (4.30-5.90) m/uL Hgb (13.0-17.5) gm/dL Hct (39.0-53.0) % Neutrophils # (1.3-7.7) k/uL ABG HCO3 (21-25) mmol/L ABG Total CO2 (19-24) mmol/L ABG O2 Saturation (94-97) % Sodium (137-145) mmol/L Chloride (98-107) mmol/L Carbon Dioxide (22-30) mmol/L BUN (9-20) mg/dL Glucose (74-99) mg/dL POC Glucose (mg/dL) 128 H 117 H 135 H (75-99) mg/dL Calcium (8.4-10.2) mg/dL 04/23/16 04/24/16 04/24/16 Range/Units 23:48 03:10 03:15 WBC 10.7 H (3.8-10.6) k/uL RBC 2.67 L (4.30-5.90) m/uL Hgb 7.8 L (13.0-17.5) gm/dL Hct 25.0 L (39.0-53.0) % Neutrophils # 8.1 H (1.3-7.7) k/uL ABG HCO3 (21-25) mmol/L ABG Total CO2 (19-24) mmol/L ABG O2 Saturation (94-97) % Sodium (137-145) mmol/L Chloride (98-107) mmol/L Carbon Dioxide (22-30) mmol/L BUN (9-20) mg/dL Glucose (74-99) mg/dL POC Glucose (mg/dL) 129 H 121 H (75-99) mg/dL Calcium (8.4-10.2) mg/dL 04/24/16 04/24/16 04/24/16 Range/Units 03:15 08:00 09:27 WBC (3.8-10.6) k/uL RBC (4.30-5.90) m/uL Hgb (13.0-17.5) gm/dL Hct (39.0-53.0) % Neutrophils # (1.3-7.7) k/uL ABG HCO3 27 H 28 H (21-25) mmol/L ABG Total CO2 29 H 29 H (19-24) mmol/L ABG O2 Saturation 97.4 H 98.0 H (94-97) % Sodium 146 H (137-145) mmol/L Chloride 108 H (98-107) mmol/L Carbon Dioxide 31 H (22-30) mmol/L BUN 37 H (9-20) mg/dL Glucose 128 H (74-99) mg/dL POC Glucose (mg/dL) (75-99) mg/dL Calcium 8.1 L (8.4-10.2) mg/dL Microbiology - Last 24 Hours (Table) 04/20/16 23:39 Gram Stain - Final Sputum Sputum Culture - Final Eikenella species Assessment and Plan Plan: 1 POD: #6, triple vessel coronary artery bypass grafting using the left internal mammary artery to the left anterior descending coronary artery, a reverse greater saphenous vein graft from the aorta to the early arising posterior descending coronary artery, a reverse greater saphenous vein graft from the aorta to the intramyocardial ramus intermedius artery proximally. 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 Intraoperative transesophageal echocardiogram and Epi-aortic scanning. Endoscopic vein harvesting of the right greater saphenous vein. #6 Reexploration for postoperative bleeding. On 04/18/2016, the patient is being seen postop. The patient underwent three- vessel bypass surgery and aortic valve replacement. Currently intubated on mechanical ventilator. Patient is on a multitude of pressors including a combination of norepinephrine infusion, vasopressin, Gal-Synephrine and Primacor. Most recent cardiac index at 2.7. Chest tubes are all in place. On 04/19/2016, the patient is being seen in follow-up. The patient was taken to the operating room force postoperative bleeding. The patient was taken back to the operating room and the patient was found to have bleeding from the ventricular pacing wire site in the right ventricle. He was given. He dad a resternotomy after the control of bleeding and currently is still in the process of being stabilized and weaned off the mechanical ventilator. During the process, he had a partial right upper lobe collapse which seems to be expanded on today's chest x-ray. He remains on a high degree of PEEP at 12 and he is having some minor air leak through the based on the chest tube. Lungs are well expanded and there is no evidence of pneumothorax. Hemodynamically better on lower doses of norepinephrine infusion and Primacor and the patient is currently off vasopressin and Gal-Synephrine. Sedated on a mechanical ventilator. Hemoglobin is stable in addition. On 04/20/2016 the patient is suspected to have a right lower lobe pneumonia. Morning chest x-ray showed a right lower lobe atelectasis and based on that a bronchoscopy was done and there was copious amount of respiratory secretions that was purulent of buying the bronchus intermedius and the right lower lobe. Therapeutic airway suctioning was done. Bronchial washing was obtained. Samples were sent for cultures and the patient was started on a broad-spectrum antibiotics and currently is on a combination of Zosyn and vancomycin. On 04/21/2016, the patient is still on a mechanical ventilator. The patient has developed right lung pneumonia with signs of sepsis. His chest x-ray is showing volume loss and atelectatic changes in the right lung base and the bronchoscopy and the bronchioloalveolar lavage was done and copious amount of purulent respiratory secretions were aspirated from the right lung and a repeat bronchoscopy will be done today based on the presence of ongoing volume loss. Patient is covered with a combination of Zosyn and vancomycin. He has a low- grade fever. He is hemodynamically doing well without any ongoing pressor dependence. Cardiac index is at 1.8 and the patient is on Primacor and the dose is being titrated. The mediastinal chest tubes have been removed. The patient is still on 8 of PEEP and FiO2 of 50%. On 04/22/2016, the patient underwent another bronchoscopy. This is the third bronchoscopy during which thick purulent mucous plugs are being aspirated from the right lung. Airway patency was again achieved. I consulted amount of secretions in the right lung is improved compared to the earlier bronchoscopy. Patient remains on examination Zosyn and vancomycin. The PEEP has been dropped down to 8 and a weight drop it down to 5 as long as the patient's oxidation improved. The patient is hemodynamically stable. He is on low-dose Primacor to augment the cardiac output. Chest tubes are in place. Newhall-Candace catheter in place and this will be removed. On 04/23/2016, patient underwent another bronchoscopy, and the findings were less impressive compared to the findings noted above by Dr. Sales. Less. And secretions noted, and no significant mucous plugs noted in the airways. Washings of the right upper lobe and right middle lobe as well as right lower lobe were done. Patient remains on antibiotics in the form of Zosyn and vancomycin. Remains on PEEP of 8, and FiO2 of 40%. Not quite ready for weaning at this point, but I would likely address weaning trials in the next 24 hours. On 04/24/2016, patient was given a short weaning trial on pressure support of 8 and CPAP, patient was noted to be short of breath, hypertensive, tachypneic, hence we did not pursue this further weaning. Or extubation. Patient will be placed back on assist control mode and will continue present supportive care measures. Obviously the patient is not quite ready to be extubated today. We' ll try again in the next 24 hours. 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 8 osteoarthritis 9 acute kidney injury, improved 10 obesity 11 postoperative anemia the patient was given a unit of packed RBC and the current hemoglobin is 7.8 Plan Continue vent support. Continue weaning trials on a daily basis, clearly the patient is not quite ready to be weaned and extubated today. We'll continue to follow. Critical care time is 35 minutes Time with Patient: Greater than 30
[2016-04-24 12:30] LABS: Glucose,Whole Blood 150 mg/dL (75-99)
--- NOTE | 2016-04-24 13:34 | P.PN ---
Progress Note - Text Right pleural chest tube removed intact. Sutures secured in place. Dressing applied. No subcutaneous emphysema noted. Bilateral breath sounds equal.
--- NOTE | 2016-04-24 15:41 | P.PN ---
Subjective This 76-year-old gentleman was admitted with a non-ST elevation myocardial infarction and cardiomyopathy. Subsequently patient had a cardiac catheterization and I to coronary bypass surgery and aortic valve replacement. Patient had reexploration because of bleeding. Patient has prolonged stay in ICU and is still intubated. Hemodynamically seems stable. Chest x-ray shows mild CHF and pleural effusion. His oxygen saturations are improved. However patient could not tolerate weaning process. Patient is going to be back on assist control and another attempt will be made in 24 hours. His mental status seemed to be stable. His urine output is good. His renal functions are intact Objective - Vital Signs Vital signs: Vital Signs Temp 99.1 F 04/24/16 12:00 Pulse 93 04/24/16 15:00 Resp 20 04/24/16 15:00 BP 113/54 04/24/16 04:00 Pulse Ox 96 04/24/16 15:00 Intake & Output 04/23/16 04/24/16 04/24/16 18:59 06:59 18:59 Intake Total 448.620 2174.061 997.727 Output Total 2055 2405 725 Balance -1330.292 -288.939 272.727 Weight 128.7 kg 126.4 kg 126.4 kg Intake: IV 348.5 481.0 194.0 0.9 120 325 120 0.9NS Pressure Bag 66 81 24 Lactated Ringers 1,000 ml 100 @ 30 mls/hr IV .Q24H [facility] Rx#:[id number] Piperacillin-Tazobactam 3 62.5 75.0 50.0 .375 gm In Dextrose/Water 1 50ml.bag @ 12.5 mls/hr IVPB Q8HR [facility] Rx#: [id number] Intake, IV Titration 141.208 555.061 143.727 Amount Milrinone-D5w Pmx 20 mg 41.208 74.639 In Dextrose/Water 1 100ml .bag @ 0.3 MCG/KG/MIN 12. 13 mls/hr IV .Q8H15M [facility] Rx#:[id number] Propofol 500 mg In Empty 100 146.422 143.727 Bag 1 bag @ Titrate IV . Q0M [facility] Rx#:[id number] Vancomycin 2,250 mg In 334 Sodium Chloride 0.9% 500 ml @ 167 mls/hr IVPB Q16H [facility] Rx#:[id number] Oral 0 Tube Feeding 235 990 660 Other 90 Output: Chest Tube Drainage 110 140 30 Left Pleural 60 70 10 Right Pleural 50 70 20 Urine 1945 2265 695 Other: Voiding Method Indwelling Catheter Indwelling Catheter Indwelling Catheter ABP, PAP, CO, CI - Last Documented Arterial Blood Pressure 136/53 Pulmonary Artery Pressure 31/25 Cardiac Output 7 Cardiac Index 3.0 - Exam GENERAL EXAM: Patient debated and sedated HEENT: Normocephalic. Normal reaction of pupils, equal size, normal range of extraocular motion. No erythema or exudates in the throat. NECK: No masses, no nuchal rigidity. CHEST: No chest wall deformity. LUNGS: Diminished breath sounds HEART: S1 and S2 normal and distant heart sounds.. ABDOMEN: No hepatosplenomegaly, normal bowel sounds, no guarding or rigidity. SKIN: No rashes CENTRAL NERVOUS SYSTEM: No focal deficits. EXTREMITIES: No cyanosis, clubbing or edema. - Labs CBC & Chem 7: 04/24/16 03:15 04/24/16 06:55 Labs: Abnormal Lab Results - Last 24 Hours (Table) 04/23/16 04/23/16 04/23/16 Range/Units 16:03 20:39 23:48 WBC (3.8-10.6) k/uL RBC (4.30-5.90) m/uL Hgb (13.0-17.5) gm/dL Hct (39.0-53.0) % Neutrophils # (1.3-7.7) k/uL ABG HCO3 (21-25) mmol/L ABG Total CO2 (19-24) mmol/L ABG O2 Saturation (94-97) % Sodium (137-145) mmol/L Chloride (98-107) mmol/L Carbon Dioxide (22-30) mmol/L BUN (9-20) mg/dL Glucose (74-99) mg/dL POC Glucose (mg/dL) 117 H 135 H 129 H (75-99) mg/dL Calcium (8.4-10.2) mg/dL 04/24/16 04/24/16 04/24/16 Range/Units 03:10 03:15 03:15 WBC 10.7 H (3.8-10.6) k/uL RBC 2.67 L (4.30-5.90) m/uL Hgb 7.8 L (13.0-17.5) gm/dL Hct 25.0 L (39.0-53.0) % Neutrophils # 8.1 H (1.3-7.7) k/uL ABG HCO3 (21-25) mmol/L ABG Total CO2 (19-24) mmol/L ABG O2 Saturation (94-97) % Sodium 146 H (137-145) mmol/L Chloride 108 H (98-107) mmol/L Carbon Dioxide 31 H (22-30) mmol/L BUN 37 H (9-20) mg/dL Glucose 128 H (74-99) mg/dL POC Glucose (mg/dL) 121 H (75-99) mg/dL Calcium 8.1 L (8.4-10.2) mg/dL 04/24/16 04/24/16 04/24/16 Range/Units 08:00 09:27 12:27 WBC (3.8-10.6) k/uL RBC (4.30-5.90) m/uL Hgb (13.0-17.5) gm/dL Hct (39.0-53.0) % Neutrophils # (1.3-7.7) k/uL ABG HCO3 27 H 28 H (21-25) mmol/L ABG Total CO2 29 H 29 H (19-24) mmol/L ABG O2 Saturation 97.4 H 98.0 H (94-97) % Sodium (137-145) mmol/L Chloride (98-107) mmol/L Carbon Dioxide (22-30) mmol/L BUN (9-20) mg/dL Glucose (74-99) mg/dL POC Glucose (mg/dL) 150 H (75-99) mg/dL Calcium (8.4-10.2) mg/dL Assessment and Plan (1) Status post aorto-coronary artery bypass graft Status: Acute (2) NSTEMI (non-ST elevated myocardial infarction) Status: Acute (3) Cardiomyopathy Status: Acute (4) Congestive heart failure Status: Acute Plan: Continue current management. Attempts to wean off the respirator within next 24 hours again. Patient is getting Lasix and also Primacor the hemodynamically otherwise stable.
[2016-04-24 17:11] LABS: Glucose,Whole Blood 135 mg/dL (75-99)
[2016-04-24] MEDS ORDERED: PROPOFOL 50 ML IV ONE (17:18)
[2016-04-24 20:06] LABS: Glucose,Whole Blood 135 mg/dL (75-99)
[2016-04-24] MEDS: BACITRACIN 500 UNIT/GM OINT 28.4 GM TUBE TOPICAL SCH (22:42)
[2016-04-24 23:46] LABS: Glucose,Whole Blood 142 mg/dL (75-99)
[2016-04-25] MEDS: PIPERACILLIN-TAZOBACTAM 3.375 GM in DEXTROSE/WATER 1 50ML.BAG IVPB SCH ×3 (00:41→16:26)
[2016-04-25] MEDS: PROPOFOL 500 MG in EMPTY BAG 1 BAG IV SCH ×9 (01:02→23:38)
[2016-04-25] MEDS: IPRATROPIUM-ALBUTEROL 3 ML NEB INHALATION SCH ×6 (03:16→23:01)
[2016-04-25 03:51] LABS: Glucose,Whole Blood 143 mg/dL (75-99)
[2016-04-25] MEDS: INSULIN LISPRO (humaLOG) 300 UNIT/3 ML VIAL SQ SCH ×5 (04:51→20:38)
[2016-04-25] MEDS: HYDROcodone/APAP 5-325MG 1 EACH TAB PO PRN ×2 (04:51→12:16)
[2016-04-25 05:20] LABS: CH 30.1; CHCM 32.1; HCT 24.9 % (39.0-53.0); HDW 3.24; HGB 7.8 gm/dL (13.0-17.5); Hypochromasia Slight; Immature Gran Flag Slight; MCH 29.5 pg (25.0-35.0); MCHC 31.3 g/dL (31.0-37.0); MCV 94.4 fL (80.0-100.0); Mean Platelet Volume 8.3; RBC 2.64 m/uL (4.30-5.90); RDW 14.7 % (11.5-15.5); WBC 10.4 k/uL (3.8-10.6); WBC (Perox) 10.92
[2016-04-25 06:10] LABS: Ionized Calcium 5.1 mg/dL (4.5-5.3)
[2016-04-25 06:20] LABS: Add Differential Manual Differential
[2016-04-25 06:23] LABS: Nucleated Red Blood Cells 0 /100 WBC (0-0); Total Cells Counted 200
[2016-04-25 06:25] LABS: Manual Review Performed
[2016-04-25 06:28] LABS: Anion Gap 8 mmol/L; Blood Urea Nitrogen 40 mg/dL (9-20); Calcium 8.3 mg/dL (8.4-10.2); Carbon Dioxide 30 mmol/L (22-30); Chloride 111 mmol/L (98-107); Glucose 132 mg/dL (74-99); Magnesium 2.6 mg/dL (1.6-2.3); Non-African American GFR(MDRD) >60 (>60 ml/min/1.73 sqM); Phosphorous 3.5 mg/dL (2.5-4.5); Potassium 3.8 mmol/L (3.5-5.1); Sodium 149 mmol/L (137-145)
[2016-04-25] MEDS ORDERED: POTASSIUM CHLORIDE ORAL LIQUID 40 MEQ/30 ML CUP NG-TUBE SCH ×2 (07:00→17:00)
[2016-04-25] MEDS: ACETYLCYSTEINE 800 MG/4 ML VIAL INHALATION SCH ×4 (07:16→19:00)
[2016-04-25 08:20] LABS: ABG HCO3 27 mmol/L (21-25); ABG PCO2 36 mmHg (35-45); ABG PH 7.48 (7.35-7.45); ABG PO2 80 mmHg (83-108)
[2016-04-25 08:21] LABS: ABG Base Excess 3.1 mmol/L; ABG Oxygen Saturation 96.7 % (94-97); ABG TCO2 28 mmol/L (19-24)
--- NOTE | 2016-04-25 08:23 | XR ---
EXAMINATION TYPE: XR chest 1V portable DATE OF EXAM: 04/25/2016 6:41 AM COMPARISON: NONE INDICATION: Intubated difficulty breathing TECHNIQUE: Single frontal view of the chest is obtained. FINDINGS: The heart is mildly prominent. The pulmonary vasculature is normal. Small bilateral pleural effusions are present. Right-sided chest tube is been removed. Left-sided chest tube remains in position. Endotracheal tube is present with the tip above the shanice. Nasogastric tube transverses the thorax. Sternotomy wires a re present. IMPRESSION: 1. Small bilateral pleural effusions. 2. Lines and catheters discussed above.
[2016-04-25] MEDS: DOCUSATE ORAL SOLN 100 MG/10 ML CUP PO SCH (08:31)
[2016-04-25] MEDS: HEPARIN SODIUM,PORCINE 5,000 UNIT/ML 1 ML VIAL SQ SCH ×2 (08:31→16:26)
[2016-04-25] MEDS: PANTOPRAZOLE 40 MG/10 ML VIAL IVP SCH (08:31)
[2016-04-25] MEDS: BACITRACIN 500 UNIT/GM OINT 28.4 GM TUBE TOPICAL SCH ×2 (08:32→20:39)
[2016-04-25] MEDS: ASPIRIN 81 MG CHEW PO SCH (08:32)
[2016-04-25] MEDS: METOPROLOL TARTRATE 25 MG TAB PO SCH ×2 (08:32→20:39)
[2016-04-25] MEDS: CLOPIDOGREL 75 MG TAB PO SCH (08:32)
[2016-04-25] MEDS: ATORVASTATIN 40 MG TAB PO SCH (08:32)
[2016-04-25] MEDS: CHLORHEXIDINE GLUCONATE 15 ML CUP MUCOUS MEM SCH ×2 (08:32→20:39)
[2016-04-25 08:36] LABS: Glucose,Whole Blood 130 mg/dL (75-99)
--- NOTE | 2016-04-25 08:39 | P.PN ---
Subjective Principal diagnosis: POD: #7, triple vessel coronary artery bypass grafting using the left internal mammary artery to the left anterior descending coronary artery, a reverse greater saphenous vein graft from the aorta to the early arising posterior descending coronary artery, a reverse greater saphenous vein graft from the aorta to the intramyocardial ramus intermedius artery proximally. 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 Intraoperative transesophageal echocardiogram and Epi-aortic scanning. Endoscopic vein harvesting of the right greater saphenous vein. #7 Reexploration for postoperative bleeding. Patient remains sedated on mechanical ventilation with a propofol drip at 25 mcg /kg/min. Sedation holiday not done today. Objective - Vital Signs Vital signs: Vital Signs Temp 98.8 F 04/25/16 04:00 Pulse 84 04/25/16 07:45 Resp 16 04/25/16 07:00 BP 117/56 04/25/16 00:00 Pulse Ox 95 04/25/16 07:00 Intake & Output 04/24/16 04/25/16 04/25/16 18:59 06:59 18:59 Intake Total 5661.453 8732.717 83 Output Total 1065 862 95 Balance 387.912 934.717 -12 Weight 126.4 kg 123.3 kg Intake: IV 270.5 203.5 28 0.9 175 80 25 0.9NS Pressure Bag 33 36 3 Piperacillin-Tazobactam 3 62.5 87.5 .375 gm In Dextrose/Water 1 50ml.bag @ 12.5 mls/hr IVPB Q8HR ADAM Rx#: [id number] Intake, IV Titration 302.412 678.217 Amount Milrinone-D5w Pmx 20 mg 100.000 In Dextrose/Water 1 100ml .bag @ 0.3 MCG/KG/MIN 12. 13 mls/hr IV .Q8H15M ADAM Rx#:[id number] Propofol 500 mg In Empty 202.412 157.217 Bag 1 bag @ Titrate IV . Q0M ADAM Rx#:[id number] Vancomycin 2,250 mg In 521 Sodium Chloride 0.9% 500 ml @ 167 mls/hr IVPB Q16H ADAM Rx#:[id number] Oral 0 Tube Feeding 880 825 55 Other 90 Output: Chest Tube Drainage 30 40 20 Left Pleural 10 40 20 Right Pleural 20 Urine 1035 822 75 Other: Voiding Method Indwelling Catheter Indwelling Catheter # Voids 1 ABP, PAP, CO, CI - Last Documented Arterial Blood Pressure 119/50 Pulmonary Artery Pressure 31/25 Cardiac Output 7 Cardiac Index 3.0 - Constitutional General appearance: Present: no acute distress, obese - Respiratory Details: Respirations even and nonlabored on mechanical ventilation. Settings FiO2 40% tidal volume 550 respirations 16 Peep 5. Respiratory: bilateral: diminished - Cardiovascular Rhythm: regular Heart sounds: normal: S1, S2 - Peripheral edema leg Peripheral Edema Comment(s): Patient exhibits increased scrotal and penile edema. Scrotum elevated per nursing. Peripheral Edema: right: 3+, Pitting - Peripheral pulses dorsalis pedis Peripheral Pulses: bilateral: Normal radial pulse Peripheral Pulses: bilateral: Normal - Gastrointestinal Gastrointestinal Comment(s): Abdomen soft nontender nondistended. Still no bowel movement since surgery despite milk of magnesia yesterday. General gastrointestinal: Present: decreased bowel sounds - Genitourinary Genitourinary Comment(s): Increased scrotal and penile edema present. Nava catheter in draining clear yellow urine. Male genitourinary: scrotal edema - Integumentary Integumentary Comment(s): Right groin with maceration present at femoral arterial line site. We'll place inter dry to right groin. - Psychiatric Psychiatric Comment(s): Sedated on Diprivan drip - Allied health notes Allied health notes reviewed: nursing - Labs CBC & Chem 7: 04/25/16 04:55 04/25/16 04:55 Labs: Abnormal Lab Results - Last 24 Hours (Table) 04/24/16 04/24/16 04/24/16 Range/Units 08:00 09:27 12:27 RBC (4.30-5.90) m/uL Hgb (13.0-17.5) gm/dL Hct (39.0-53.0) % Neutrophils # (Manual) (1.3-7.7) k/uL Lymphocytes # (Manual) (1.0-4.8) k/uL ABG HCO3 27 H 28 H (21-25) mmol/L ABG Total CO2 29 H 29 H (19-24) mmol/L ABG O2 Saturation 97.4 H 98.0 H (94-97) % Sodium (137-145) mmol/L Chloride (98-107) mmol/L BUN (9-20) mg/dL Glucose (74-99) mg/dL POC Glucose (mg/dL) 150 H (75-99) mg/dL Calcium (8.4-10.2) mg/dL Magnesium (1.6-2.3) mg/dL 04/24/16 04/24/16 04/24/16 Range/Units 17:10 20:05 23:43 RBC (4.30-5.90) m/uL Hgb (13.0-17.5) gm/dL Hct (39.0-53.0) % Neutrophils # (Manual) (1.3-7.7) k/uL Lymphocytes # (Manual) (1.0-4.8) k/uL ABG HCO3 (21-25) mmol/L ABG Total CO2 (19-24) mmol/L ABG O2 Saturation (94-97) % Sodium (137-145) mmol/L Chloride (98-107) mmol/L BUN (9-20) mg/dL Glucose (74-99) mg/dL POC Glucose (mg/dL) 135 H 135 H 142 H (75-99) mg/dL Calcium (8.4-10.2) mg/dL Magnesium (1.6-2.3) mg/dL 04/25/16 04/25/16 04/25/16 Range/Units 03:50 04:55 04:55 RBC 2.64 L (4.30-5.90) m/uL Hgb 7.8 L (13.0-17.5) gm/dL Hct 24.9 L (39.0-53.0) % Neutrophils # (Manual) 7.9 H (1.3-7.7) k/uL Lymphocytes # (Manual) 0.9 L (1.0-4.8) k/uL ABG HCO3 (21-25) mmol/L ABG Total CO2 (19-24) mmol/L ABG O2 Saturation (94-97) % Sodium 149 H (137-145) mmol/L Chloride 111 H (98-107) mmol/L BUN 40 H (9-20) mg/dL Glucose 132 H (74-99) mg/dL POC Glucose (mg/dL) 143 H (75-99) mg/dL Calcium 8.3 L (8.4-10.2) mg/dL Magnesium 2.6 H (1.6-2.3) mg/dL - Imaging and Cardiology Chest x-ray: image reviewed Assessment and Plan (1) Congestive heart failure Narrative/Plan: Remains on Primacor drip at 0.15 mcg/kg/m. Status: Acute (2) NSTEMI (non-ST elevated myocardial infarction) Narrative/Plan: Continue Lopressor 25 mg per OG tube twice a day. Continue aspirin, Plavix, heparin and statin Status: Acute (3) Status post aorto-coronary artery bypass graft Narrative/Plan: Maintain left pleural chest tube. Right pleural chest tube removed yesterday. Epicardial pacemaker wires will remain in. Mechanical ventilator management and antibiotic management per Dr. Oseguera. SCDs and KARON hose in place for DVT prophylaxis. Protonix in place for GI prophylaxis Status: Acute (4) Hypertension Narrative/Plan: Continue Lopressor 25 mg twice a day. We will reevaluate for JESSE inhibitor closer to discharge Status: Acute (5) Obesity, Class III, BMI 40-49.9 (morbid obesity) Status: Acute (6) Postoperative anemia due to acute blood loss Narrative/Plan: Continue to monitor hemoglobin and hematocrit daily, stable at this point. Status: Acute (7) Postoperative acute respiratory failure Narrative/Plan: Continue ventilatory management per pulmonology. Status: Acute Plan: Per discussion with Dr. Casey will continue mechanical ventilation weaning trials as tolerated, we'll continue vancomycin and Zosyn as prescribed for positive sputum culture Eikinella, will discontinue Primacor drip, suppository for constipation with no bowel movement since surgery and start Reglan IV push for 2 days, will increase water flushes through OG-tube for increased sodium level, will add inter dry to right groin to treat maceration. Time with Patient: Greater than 30
[2016-04-25] MEDS: SODIUM CHLORIDE 0.9% 1,000 ML IV SCH (08:51)
[2016-04-25] MEDS ORDERED: PROPOFOL 0 ML IV ONE (09:10)
--- NOTE | 2016-04-25 10:19 | PN ---
DATE OF SERVICE: 04/24/2016 INTERVAL HISTORY: Mr. Mccracken is a 76-year-old male who was admitted to the hospital with chest pain and acute ST-elevated UT. Patient underwent cardiac catheterization and found to have triple-vessel disease. Patient had triple-vessel coronary artery bypass graft and aortic valve replacement. Patient otherwise currently had a prolonged intubation and had a bronchoscopy yesterday. Patient had a weaning trial this morning, but patient was agitated and still currently continued on mechanical ventilation. ABGs today showed pH of 7.45, pCO2 of 40 and pO2 of 93. Otherwise, patient was also found to have Eikenella species in the sputum culture, currently on antibiotics in the form of Zosyn. Complete review of systems could not be obtained from the patient. CURRENT MEDICATIONS: Reviewed. PHYSICAL EXAMINATION: A 76-year-old male lying in the bed, currently sedated and intubated. VITALS: Blood pressure is 141/55, pulse is 97, respirations 23, temperature afebrile, pulse ox 97% on 40% FiO2 on mechanical ventilator. HEENT: Atraumatic, normocephalic. Neck is supple. No JVD. CVS: S1, S2 heard. No murmurs. No gallop. LUNGS: Bilateral air entry is present. Diminished breath sounds and basilar crackles positive. Abdomen is soft, obese. Bowel sounds are present. Patient does have chest tubes that are intact. 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 EXTREMITIES: Bilateral trace edema of the lower extremities. Pulses are palpable bilaterally. No clubbing. Psychiatric could not be assessed completely. LABORATORY DATA: WBC is 10.7, hemoglobin is 7.8, platelets 155. Sodium 146, potassium 3.9, chloride 108, bicarb is 31, BUN 33, creatinine 1.1. Calcium ( ), magnesium 2.3. IMPRESSION: 1. Acute hypoxic respiratory failure post surgery. 2. Cardiogenic shock. Continued on milrinone drip, off pressor support now. 3. Coronary artery disease, status post coronary artery triple-vessel coronary artery bypass graft and aortic valve replacement, postoperative day 6. 4. Acute ST-elevated myocardial infarction on admission. 5. Chronic obstructive pulmonary disease. 6. Osteoporosis. 7. Morbid obesity with a body mass index of 40.5. 8. Acute kidney injury, improved. 9. Questionable right atrial thrombus on echocardiogram. 10. Acute blood loss anemia from recent surgery. Hemoglobin is fairly stable. 11. Benign prostatic hypertrophy. 12. Eikenella species on the sputum culture. DISCUSSION AND PLAN: Patient will be continued on mechanical ventilation. Patient became agitated after weaning trial today. Continue with current management and continue with antibiotics in the form of Zosyn and follow up H and H. Will continue the milrinone and followup repeat chest x-ray tomorrow. This showed improvement today. I will continue with current management. Prognosis is guarded. Further recommendations based on the clinical course. Pulmonary and Cardiology are following this patient.
[2016-04-25] MEDS ORDERED: FUROSEMIDE 10 MG/ML 2 ML VIAL IV STA (10:20)
[2016-04-25] MEDS ORDERED: LORazepam 2 MG/ML SYRINGE IV STA (10:36)
[2016-04-25] MEDS ORDERED: LIDOCAINE 2% INJ 20 MG/ML SQ ONE (12:04)
[2016-04-25 12:21] LABS: Glucose,Whole Blood 128 mg/dL (75-99)
[2016-04-25] MEDS: BISACODYL 10 MG SUPP RECTAL PRN (12:41)
[2016-04-25] MEDS: METOCLOPRAMIDE 5 MG/ML 2 ML VIAL IVP SCH ×2 (12:41→18:01)
--- NOTE | 2016-04-25 12:54 | IR ---
PICC LINE PLACEMENT: HISTORY: Infection requiring long-term antibiotic therapy PROCEDURE: Ultrasound guidance of PICC line placement. ORGANIZATIONAL RESEARCH CONSULTANT: Dr. Izquierdo. COMPLICATIONS: None ANESTHESIA: 1. 1% Lidocaine locally. FINDINGS/TECHNIQUE: The procedure was explained to the patient. The risks, complications, benefits and alternatives were discussed and any questions were answered. Informed consent was obtained. The patient was placed supine on the fluoroscopic table and prepped and draped in the usual sterile fas ion. Utilizing a 21 gauge needle and sonographic guidance, access in the left basilic vein was achi eved and there is placement of a 0.018 guidewire. The vein is patent. A 5-F. sheath was placed over the guidewire. The guidewire and dilator were removed and a 5-F. Double lumen PICC line was placed through the sheath with the chest x-ray confirming the tip at the level of the SVC. The sheath was r emoved, the catheter was flushed and sutured into position. The patient was stable throughout the pr ocedure and remained stable upon discharge from the Department of Radiology. The vein puncture was patent under ultrasound. A jimenez scale image was obtained to document patency of the vein punctured. All elements of the maximal barrier technique were utilized. IMPRESSION: 1. Successful PICC line placement under ultrasound performed bedside within the ICU.
--- NOTE | 2016-04-25 13:19 | XR ---
EXAMINATION TYPE: XR chest 1V confirm line plcmt DATE OF EXAM: 04/25/2016 1:06 PM COMPARISON: 04/25/2016 earlier in day INDICATION: PICC line placement TECHNIQUE: Single frontal view of the chest is obtained. FINDINGS: The heart size is normal. The pulmonary vasculature is normal. The lungs are clear. No pneumothorax is evident. Left-sided chest tube remains in position. Small trinity ateral pleural effusions may be present. Endotracheal tube and nasogastric tube remain in position. PICC line enters on the left. This is traced to the brachiocephalic vein. The distal aspect however i s not identified IMPRESSION: 1. PICC line placement extending to at least the brachiocephalic vein. The distal tip however is not identified. 2. Bilateral pleural effusions. 3. Lines and catheters discussed above.
[2016-04-25] MEDS ORDERED: PROPOFOL 50 ML IV ONE ×6 (13:51→23:36)
[2016-04-25] MEDS: VANCOMYCIN 2,250 MG in SODIUM CHLORIDE 0.9% 500 ML IVPB SCH (14:12)
--- NOTE | 2016-04-25 14:14 | P.PN ---
Subjective Principal diagnosis: Triple-vessel coronary artery disease, severe LV dysfunction. Right lower lobe collapse This 76-year-old male patient , post 3 vessel bypass surgery including PHAM to LAD saphenous vein graft to diagonal and ramus branches and aortic valve replacement was currently back in the intensive care unit and the patient is postop day 1. Note that the patient was taken back to the operating room after he arrived the ICU. The patient was having bleeding from his mediastinal chest tubes. Further examination was done and the bleeding site was identified and the local hemostasis was achieved and following that the patient was brought back to the intensive care unit. Overnight, the patient remains on a mechanical ventilator and he remains sedated with Diprivan. He was gradually taken off the vasopressin drip and the Gal-Synephrine drip and both are discontinued. Currently is on 8 mics of norepinephrine infusion and Primacor. He is hemodynamically stable. He remains on a mechanical ventilator and his series of chest x-rays that was done postop showed a partial atelectasis of the right upper lobe which subsequently improved. Morning's chest x-ray showed adequate expansion of the right upper lobe area and there is probably some small better pleural effusion. ET tube is in a good location. The patient has a [place]-Candace catheter in place. There aren't pleural and mediastinal chest tubes are all in place. On the mechanical ventilator, the patient is on a assist-control mode at the rate of 20, tidal volume of 650, FiO2 of 80% and PEEP of 12. He is having some air leak within the mediastinal chest tube. Output however has improved and there is evidence of any acute bleeding. Hemoglobin is stable for now. Patient was reevaluated today on 04/24/2016, chest x-ray continues to show steady improvement, and slightly better compared to chest x-ray yesterday. Patient was given a short weaning trial on pressure support of 8 and CPAP, and according to the nurses he became quite restless, blood pressure was extremely high, and the patient was noted to be working hard to breathe. His work of breathing was noted to be significant, hence no more than half hour trial was given. Patient was placed back on assist control mode. Patient is postoperative day #6, triple vessel coronary artery bypass grafting and aortic valve replacement using a 25 mm pericardial bioprosthesis. Patient also required reexploration for postoperative bleeding. He is still on mechanical ventilation today, placed back on propofol at 20 mcg/kg/m, and he remains on Primacor. At 0.15 mcg/kg/m. Patient is receiving Lasix intermittently. ABG today showed a pO2 of 93 pCO2 of 40 pH of 7.45. Basic metabolic profile is relatively unremarkable, BUN is 37 creatinine is 1.1 Patient was reevaluated on 04/25/2016, patient was taken off propofol, and he was given a trial of weaning on pressure support of 12 which I will be cutting down the pressure support of 8, I doubt if the patient will fully wean and extubate today, and this is mostly because of his significant secretions in the endotracheal tube. Chest x-ray is basically about the same, I given a dose of Lasix 20 mg IV push earlier this morning. Off propofol, patient was noted to be slightly confused, but able to follow simple instructions like wiggling toes , squeezing hands, closing eyes. I believe the patient is neurologically intact , and his neurological status will improve with holding sedation longer period the only concern I have today is the fact that the patient has significant amount of secretions in the endotracheal tube and he is being suctioned frequently. Otherwise I would have extubated the patient today after a trial of pressure support of 8 and CPAP. ABG today showed a pO2 of 80 pCO2 of 36 pH of 7.48 and this was on 40% FiO2 and PEEP of 5 his electrolytes and renal profile were reviewed, sodium is a bit elevated, however the patient is receiving free water flushes via nasogastric tube and that will improve his hypernatremia. Objective - Vital Signs Vital signs: Vital Signs Temp 98.8 F 04/25/16 13:00 Pulse 81 04/25/16 14:00 Resp 18 04/25/16 14:00 BP 117/56 04/25/16 00:00 Pulse Ox 97 04/25/16 14:00 Intake & Output 04/24/16 04/25/16 04/25/16 18:59 06:59 18:59 Intake Total 3784.275 6239.717 1059.598 Output Total 0811 714 1529 Balance 387.912 934.717 -240.402 Weight 126.4 kg 123.3 kg Intake: IV 270.5 203.5 246 0.9 175 80 175 0.9NS Pressure Bag 33 36 21 Piperacillin-Tazobactam 3 62.5 87.5 50 .375 gm In Dextrose/Water 1 50ml.bag @ 12.5 mls/hr IVPB Q8HR [facility] Rx#: [id number] Intake, IV Titration 302.412 678.217 173.598 Amount Milrinone-D5w Pmx 20 mg 100.000 65.953 In Dextrose/Water 1 100ml .bag @ 0.3 MCG/KG/MIN 12. 13 mls/hr IV .Q8H15M [facility] Rx#:[id number] Propofol 50 ml As IV .STK 18 -[facility] Rx#:[id number] Propofol 500 mg In Empty 202.412 157.217 89.645 Bag 1 bag @ Titrate IV . Q0M [facility] Rx#:[id number] Vancomycin 2,250 mg In 521 Sodium Chloride 0.9% 500 ml @ 167 mls/hr IVPB Q16H [facility] Rx#:[id number] Oral 0 Tube Feeding 880 825 550 Other 90 90 Output: Chest Tube Drainage 30 40 60 Left Pleural 10 40 60 Right Pleural 20 Urine [id number] Other: Voiding Method Indwelling Catheter Indwelling Catheter Indwelling Catheter # Voids 1 ABP, PAP, CO, CI - Last Documented Arterial Blood Pressure 111/44 Pulmonary Artery Pressure 31/25 Cardiac Output 7 Cardiac Index 3.0 - Exam Physical Exam: Revealed a 76-year-old white male on mechanical ventilation, awake, follows simple instructions, however slightly confused. And a bit slow. HEENT:[Neck is supple.] [No neck masses.] [No thyromegaly.] [No JVD.] Chest: [Crackles and rhonchi at the bases] Cardiac Exam: [Normal S1 and S2, no S3 gallop, no murmur.] Abdomen: [Soft, nontender, no megaly, no rebound, no guarding, normal bowel sounds.] Extremities: [No clubbing, no edema, no cyanosis.] Neurological Exam: Arousable, follows simple instructions, slightly confused, otherwise no focal neurologic deficit. - Labs CBC & Chem 7: 04/25/16 04:55 04/25/16 04:55 Labs: Abnormal Lab Results - Last 24 Hours (Table) 04/24/16 04/24/16 04/24/16 Range/Units 17:10 20:05 23:43 RBC (4.30-5.90) m/uL Hgb (13.0-17.5) gm/dL Hct (39.0-53.0) % Neutrophils # (Manual) (1.3-7.7) k/uL Lymphocytes # (Manual) (1.0-4.8) k/uL ABG pH (7.35-7.45) ABG pO2 (83-108) mmHg ABG HCO3 (21-25) mmol/L ABG Total CO2 (19-24) mmol/L Sodium (137-145) mmol/L Chloride (98-107) mmol/L BUN (9-20) mg/dL Glucose (74-99) mg/dL POC Glucose (mg/dL) 135 H 135 H 142 H (75-99) mg/dL Calcium (8.4-10.2) mg/dL Magnesium (1.6-2.3) mg/dL 04/25/16 04/25/16 04/25/16 Range/Units 03:50 04:55 04:55 RBC 2.64 L (4.30-5.90) m/uL Hgb 7.8 L (13.0-17.5) gm/dL Hct 24.9 L (39.0-53.0) % Neutrophils # (Manual) 7.9 H (1.3-7.7) k/uL Lymphocytes # (Manual) 0.9 L (1.0-4.8) k/uL ABG pH (7.35-7.45) ABG pO2 (83-108) mmHg ABG HCO3 (21-25) mmol/L ABG Total CO2 (19-24) mmol/L Sodium 149 H (137-145) mmol/L Chloride 111 H (98-107) mmol/L BUN 40 H (9-20) mg/dL Glucose 132 H (74-99) mg/dL POC Glucose (mg/dL) 143 H (75-99) mg/dL Calcium 8.3 L (8.4-10.2) mg/dL Magnesium 2.6 H (1.6-2.3) mg/dL 04/25/16 04/25/16 04/25/16 Range/Units 07:10 08:34 12:19 RBC (4.30-5.90) m/uL Hgb (13.0-17.5) gm/dL Hct (39.0-53.0) % Neutrophils # (Manual) (1.3-7.7) k/uL Lymphocytes # (Manual) (1.0-4.8) k/uL ABG pH 7.48 H (7.35-7.45) ABG pO2 80 L (83-108) mmHg ABG HCO3 27 H (21-25) mmol/L ABG Total CO2 28 H (19-24) mmol/L Sodium (137-145) mmol/L Chloride (98-107) mmol/L BUN (9-20) mg/dL Glucose (74-99) mg/dL POC Glucose (mg/dL) 130 H 128 H (75-99) mg/dL Calcium (8.4-10.2) mg/dL Magnesium (1.6-2.3) mg/dL Assessment and Plan Plan: 1 POD: #6, triple vessel coronary artery bypass grafting using the left internal mammary artery to the left anterior descending coronary artery, a reverse greater saphenous vein graft from the aorta to the early arising posterior descending coronary artery, a reverse greater saphenous vein graft from the aorta to the intramyocardial ramus intermedius artery proximally. 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 Intraoperative transesophageal echocardiogram and Epi-aortic scanning. Endoscopic vein harvesting of the right greater saphenous vein. #6 Reexploration for postoperative bleeding. On 04/18/2016, the patient is being seen postop. The patient underwent three- vessel bypass surgery and aortic valve replacement. Currently intubated on mechanical ventilator. Patient is on a multitude of pressors including a combination of norepinephrine infusion, vasopressin, Gal-Synephrine and Primacor. Most recent cardiac index at 2.7. Chest tubes are all in place. On 04/19/2016, the patient is being seen in follow-up. The patient was taken to the operating room force postoperative bleeding. The patient was taken back to the operating room and the patient was found to have bleeding from the ventricular pacing wire site in the right ventricle. He was given. He dad a resternotomy after the control of bleeding and currently is still in the process of being stabilized and weaned off the mechanical ventilator. During the process, he had a partial right upper lobe collapse which seems to be expanded on today's chest x-ray. He remains on a high degree of PEEP at 12 and he is having some minor air leak through the based on the chest tube. Lungs are well expanded and there is no evidence of pneumothorax. Hemodynamically better on lower doses of norepinephrine infusion and Primacor and the patient is currently off vasopressin and Gal-Synephrine. Sedated on a mechanical ventilator. Hemoglobin is stable in addition. On 04/20/2016 the patient is suspected to have a right lower lobe pneumonia. Morning chest x-ray showed a right lower lobe atelectasis and based on that a bronchoscopy was done and there was copious amount of respiratory secretions that was purulent of buying the bronchus intermedius and the right lower lobe. Therapeutic airway suctioning was done. Bronchial washing was obtained. Samples were sent for cultures and the patient was started on a broad-spectrum antibiotics and currently is on a combination of Zosyn and vancomycin. On 04/21/2016, the patient is still on a mechanical ventilator. The patient has developed right lung pneumonia with signs of sepsis. His chest x-ray is showing volume loss and atelectatic changes in the right lung base and the bronchoscopy and the bronchioloalveolar lavage was done and copious amount of purulent respiratory secretions were aspirated from the right lung and a repeat bronchoscopy will be done today based on the presence of ongoing volume loss. Patient is covered with a combination of Zosyn and vancomycin. He has a low- grade fever. He is hemodynamically doing well without any ongoing pressor dependence. Cardiac index is at 1.8 and the patient is on Primacor and the dose is being titrated. The mediastinal chest tubes have been removed. The patient is still on 8 of PEEP and FiO2 of 50%. On 04/22/2016, the patient underwent another bronchoscopy. This is the third bronchoscopy during which thick purulent mucous plugs are being aspirated from the right lung. Airway patency was again achieved. I consulted amount of secretions in the right lung is improved compared to the earlier bronchoscopy. Patient remains on examination Zosyn and vancomycin. The PEEP has been dropped down to 8 and a weight drop it down to 5 as long as the patient's oxidation improved. The patient is hemodynamically stable. He is on low-dose Primacor to augment the cardiac output. Chest tubes are in place. [place]-Candace catheter in place and this will be removed. On 04/23/2016, patient underwent another bronchoscopy, and the findings were less impressive compared to the findings noted above by Dr. Sales. Less. And secretions noted, and no significant mucous plugs noted in the airways. Washings of the right upper lobe and right middle lobe as well as right lower lobe were done. Patient remains on antibiotics in the form of Zosyn and vancomycin. Remains on PEEP of 8, and FiO2 of 40%. Not quite ready for weaning at this point, but I would likely address weaning trials in the next 24 hours. On 04/24/2016, patient was given a short weaning trial on pressure support of 8 and CPAP, patient was noted to be short of breath, hypertensive, tachypneic, hence we did not pursue this further weaning. Or extubation. Patient will be placed back on assist control mode and will continue present supportive care measures. Obviously the patient is not quite ready to be extubated today. We' ll try again in the next 24 hours. On 04/25/2016, patient will be given longer weaning trials using pressure support of 12 and CPAP, and I will use pressure support of 8 and CPAP. My only concern however is the fact that the patient has significant endotracheal secretions, and I believe that will delay extubation probably another day. In the meantime we'll continue antibiotics, and continue suctioning. May even consider a trial of steroids. 2 coronary artery disease, 3 CHF with a preop ejection fraction of 20-25%, mild congestive heart failure noted on the chest x-ray, and the patient will receive Lasix 20 mg IV push 1 today. 4 questionable right atrial thrombus 5 scoliosis of the thoracic spine 6 benign prostatic hypertrophy 7 hyperlipidemia. 8 osteoarthritis 9 acute kidney injury, improved 10 obesity 11 postoperative anemia the patient was given a unit of packed RBC and the current hemoglobin is 7.8 Plan Continue vent support. Continue weaning trials on a daily basis, clearly the patient is not quite ready to be extubated because of his significant endotracheal secretions. We'll continue this on a daily basis, critical care time is 34 minutes, discussed his condition with family members at bedside. Time with Patient: Greater than 30
[2016-04-25 14:46] LABS: Magnesium 2.4 mg/dL (1.6-2.3); Potassium 3.9 mmol/L (3.5-5.1)
--- NOTE | 2016-04-25 15:25 | P.PN ---
Subjective This 76-year-old gentleman was admitted with a non-ST elevation myocardial infarction and cardiomyopathy. Subsequently patient had a cardiac catheterization and I to coronary bypass surgery and aortic valve replacement. Patient had reexploration because of bleeding. Patient has prolonged stay in ICU and is still intubated. Hemodynamically seems stable. Chest x-ray shows mild CHF and pleural effusion. His oxygen saturations are improved. An attempt was made to weaning off the respirator. Patient could tolerate the weaning process for longer than today and another attempt being planned for tomorrow. He is have good urinary output and hemodynamically stable. Objective - Vital Signs Vital signs: Vital Signs Temp 98.8 F 04/25/16 13:00 Pulse 81 04/25/16 14:00 Resp 18 04/25/16 14:00 BP 117/56 04/25/16 00:00 Pulse Ox 97 04/25/16 14:00 Intake & Output 04/24/16 04/25/16 04/25/16 18:59 06:59 18:59 Intake Total 4042.976 1607.717 1142.598 Output Total 8464 498 5699 Balance 387.912 934.717 -232.402 Weight 126.4 kg 123.3 kg Intake: IV 270.5 203.5 274 0.9 175 80 200 0.9NS Pressure Bag 33 36 24 Piperacillin-Tazobactam 3 62.5 87.5 50 .375 gm In Dextrose/Water 1 50ml.bag @ 12.5 mls/hr IVPB Q8HR [facility] Rx#: [id number] Intake, IV Titration 302.412 678.217 173.598 Amount Milrinone-D5w Pmx 20 mg 100.000 65.953 In Dextrose/Water 1 100ml .bag @ 0.3 MCG/KG/MIN 12. 13 mls/hr IV .Q8H15M [facility] Rx#:[id number] Propofol 50 ml As IV .STK 18 -[facility] Rx#:[id number] Propofol 500 mg In Empty 202.412 157.217 89.645 Bag 1 bag @ Titrate IV . Q0M [facility] Rx#:[id number] Vancomycin 2,250 mg In 521 Sodium Chloride 0.9% 500 ml @ 167 mls/hr IVPB Q16H [facility] Rx#:[id number] Oral 0 Tube Feeding 880 825 605 Other 90 90 Output: Chest Tube Drainage 30 40 60 Left Pleural 10 40 60 Right Pleural 20 Urine [phone] Other: Voiding Method Indwelling Catheter Indwelling Catheter Indwelling Catheter # Voids 1 ABP, PAP, CO, CI - Last Documented Arterial Blood Pressure 111/44 Pulmonary Artery Pressure 31/25 Cardiac Output 7 Cardiac Index 3.0 - Exam GENERAL EXAM: Patient debated and sedated HEENT: Normocephalic. Normal reaction of pupils, equal size, normal range of extraocular motion. No erythema or exudates in the throat. NECK: No masses, no nuchal rigidity. CHEST: No chest wall deformity. LUNGS: Diminished breath sounds HEART: S1 and S2 normal and distant heart sounds.. ABDOMEN: No hepatosplenomegaly, normal bowel sounds, no guarding or rigidity. SKIN: No rashes CENTRAL NERVOUS SYSTEM: No focal deficits. EXTREMITIES: No cyanosis, clubbing or edema. - Labs CBC & Chem 7: 04/25/16 04:55 04/25/16 14:15 Labs: Abnormal Lab Results - Last 24 Hours (Table) 04/24/16 04/24/16 04/24/16 Range/Units 17:10 20:05 23:43 RBC (4.30-5.90) m/uL Hgb (13.0-17.5) gm/dL Hct (39.0-53.0) % Neutrophils # (Manual) (1.3-7.7) k/uL Lymphocytes # (Manual) (1.0-4.8) k/uL ABG pH (7.35-7.45) ABG pO2 (83-108) mmHg ABG HCO3 (21-25) mmol/L ABG Total CO2 (19-24) mmol/L Sodium (137-145) mmol/L Chloride (98-107) mmol/L BUN (9-20) mg/dL Glucose (74-99) mg/dL POC Glucose (mg/dL) 135 H 135 H 142 H (75-99) mg/dL Calcium (8.4-10.2) mg/dL Magnesium (1.6-2.3) mg/dL 04/25/16 04/25/16 04/25/16 Range/Units 03:50 04:55 04:55 RBC 2.64 L (4.30-5.90) m/uL Hgb 7.8 L (13.0-17.5) gm/dL Hct 24.9 L (39.0-53.0) % Neutrophils # (Manual) 7.9 H (1.3-7.7) k/uL Lymphocytes # (Manual) 0.9 L (1.0-4.8) k/uL ABG pH (7.35-7.45) ABG pO2 (83-108) mmHg ABG HCO3 (21-25) mmol/L ABG Total CO2 (19-24) mmol/L Sodium 149 H (137-145) mmol/L Chloride 111 H (98-107) mmol/L BUN 40 H (9-20) mg/dL Glucose 132 H (74-99) mg/dL POC Glucose (mg/dL) 143 H (75-99) mg/dL Calcium 8.3 L (8.4-10.2) mg/dL Magnesium 2.6 H (1.6-2.3) mg/dL 04/25/16 04/25/16 04/25/16 Range/Units 07:10 08:34 12:19 RBC (4.30-5.90) m/uL Hgb (13.0-17.5) gm/dL Hct (39.0-53.0) % Neutrophils # (Manual) (1.3-7.7) k/uL Lymphocytes # (Manual) (1.0-4.8) k/uL ABG pH 7.48 H (7.35-7.45) ABG pO2 80 L (83-108) mmHg ABG HCO3 27 H (21-25) mmol/L ABG Total CO2 28 H (19-24) mmol/L Sodium (137-145) mmol/L Chloride (98-107) mmol/L BUN (9-20) mg/dL Glucose (74-99) mg/dL POC Glucose (mg/dL) 130 H 128 H (75-99) mg/dL Calcium (8.4-10.2) mg/dL Magnesium (1.6-2.3) mg/dL 04/25/16 Range/Units 14:15 RBC (4.30-5.90) m/uL Hgb (13.0-17.5) gm/dL Hct (39.0-53.0) % Neutrophils # (Manual) (1.3-7.7) k/uL Lymphocytes # (Manual) (1.0-4.8) k/uL ABG pH (7.35-7.45) ABG pO2 (83-108) mmHg ABG HCO3 (21-25) mmol/L ABG Total CO2 (19-24) mmol/L Sodium (137-145) mmol/L Chloride (98-107) mmol/L BUN (9-20) mg/dL Glucose (74-99) mg/dL POC Glucose (mg/dL) (75-99) mg/dL Calcium (8.4-10.2) mg/dL Magnesium 2.4 H (1.6-2.3) mg/dL Assessment and Plan (1) Status post aorto-coronary artery bypass graft Status: Acute (2) NSTEMI (non-ST elevated myocardial infarction) Status: Acute (3) Cardiomyopathy Status: Acute (4) Congestive heart failure Status: Acute Plan: Patient's hemodynamically stable. No arrhythmias noted except occasional APCs. Respiratory status is still a few. Another attempt be made tomorrow for weaning process. We'll follow.
[2016-04-25 16:27] LABS: Glucose,Whole Blood 135 mg/dL (75-99)
[2016-04-25] MEDS: LACTATED RINGERS 1,000 ML IV SCH ×5 (19:46→21:48)
[2016-04-25 20:26] LABS: Glucose,Whole Blood 135 mg/dL (75-99)
[2016-04-26] MEDS: INSULIN LISPRO (humaLOG) 300 UNIT/3 ML VIAL SQ SCH ×6 (00:06→20:42)
[2016-04-26] MEDS: HEPARIN SODIUM,PORCINE 5,000 UNIT/ML 1 ML VIAL SQ SCH ×3 (00:07→18:48)
[2016-04-26 00:08] LABS: Glucose,Whole Blood 125 mg/dL (75-99)
[2016-04-26] MEDS: METOCLOPRAMIDE 5 MG/ML 2 ML VIAL IVP SCH ×4 (00:09→18:47)
[2016-04-26] MEDS: PIPERACILLIN-TAZOBACTAM 3.375 GM in DEXTROSE/WATER 1 50ML.BAG IVPB SCH ×2 (00:09→09:03)
[2016-04-26] MEDS ORDERED: PROPOFOL 50 ML IV ONE ×3 (02:13→06:54)
[2016-04-26] MEDS: IPRATROPIUM-ALBUTEROL 3 ML NEB INHALATION SCH ×5 (03:22→19:38)
[2016-04-26 04:07] LABS: Glucose,Whole Blood 129 mg/dL (75-99)
[2016-04-26] MEDS ORDERED: VANCOMYCIN TROUGH DUE 1 EACH MISC MISCELLANE ONE (05:00)
[2016-04-26 05:55] LABS: CH 29.6; CHCM 31.6; HCT 24.4 % (39.0-53.0); HDW 3.29; Hypochromasia Slight; Immature Gran Flag Slight; MCH 30.8 pg (25.0-35.0); MCHC 32.7 g/dL (31.0-37.0); MCV 94.2 fL (80.0-100.0); Mean Platelet Volume 7.2; RBC 2.59 m/uL (4.30-5.90); RDW 14.9 % (11.5-15.5); WBC 8.8 k/uL (3.8-10.6); WBC (Perox) 9.27
[2016-04-26 06:02] LABS: Ionized Calcium 5.3 mg/dL (4.5-5.3)
[2016-04-26 06:15] LABS: Anion Gap 9 mmol/L; Blood Urea Nitrogen 42 mg/dL (9-20); Calcium 8.4 mg/dL (8.4-10.2); Carbon Dioxide 31 mmol/L (22-30); Chloride 111 mmol/L (98-107); Glucose 128 mg/dL (74-99); Magnesium 2.5 mg/dL (1.6-2.3); Non-African American GFR(MDRD) >60 (>60 ml/min/1.73 sqM); Phosphorous 4.2 mg/dL (2.5-4.5); Sodium 151 mmol/L (137-145)
[2016-04-26] MEDS: VANCOMYCIN 2,250 MG in SODIUM CHLORIDE 0.9% 500 ML IVPB SCH (06:31)
[2016-04-26] MEDS: PROPOFOL 500 MG in EMPTY BAG 1 BAG IV SCH (06:55)
[2016-04-26 07:26] LABS: Add Differential Manual Differential
[2016-04-26 07:31] LABS: Band Neutrophils % 6.5 %; Metamyelocytes % 3.5 %; Myelocytes % 1.5 %; Nucleated Red Blood Cells 0 /100 WBC (0-0); Total Cells Counted 200; Toxic Vacuolation Present
[2016-04-26 07:32] LABS: Polychromasia Present
[2016-04-26] MEDS ORDERED: MAGNESIUM CITRATE 296 ML BOTTLE OG-TUBE ONE (07:54)
--- NOTE | 2016-04-26 08:17 | XR ---
EXAMINATION TYPE: XR chest 1V portable DATE OF EXAM: 04/26/2016 6:53 AM Comparison: 04/25/2016 Clinical History: 76-year-old male intubated Findings: ET tube tip appears to be 3 cm from the shanice. NG tube courses below the diaphragm. Median sternotom y wires are present. Left-sided chest tube is present without appreciable pneumothorax. Left PICC tip is not clearly seen beyond the left brachiocephalic vein. Continued moderate bilateral pleural effusions with adjacent opacity. Heart remains enlarged. Impression: Continued cardiomegaly and moderate pleural effusions with adjacent atelectasis and/or consolidation.
[2016-04-26] MEDS ORDERED: NA PHOS,M-B/NA PHOS,DI-BA 133 ML ENEMA RECTAL STA (08:20)
--- NOTE | 2016-04-26 08:32 | P.PN ---
<Jozef Santos Terry - Last Filed: 04/26/16 08:28> Progress Note - Text CV Surgery Nursing POD: #8, triple vessel coronary artery bypass grafting using the left internal mammary artery to the left anterior descending coronary artery, a reverse greater saphenous vein graft from the aorta to the early arising posterior descending coronary artery, a reverse greater saphenous vein graft from the aorta to the intramyocardial ramus intermedius artery proximally. 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 Intraoperative transesophageal echocardiogram and Epi-aortic scanning. Endoscopic vein harvesting of the right greater saphenous vein. #8 Reexploration for postoperative bleeding. Patient remains intubated with mechanical ventilator support. He is sedated on Diprivan drip at 25 mcg/kg/m. He will be given a sedation holiday earlier this morning prior to weaning attempts. Yesterday during his sedation holiday he was moving all 4 extremities and following simple commands. Vital Signs: T-max temperature in the last 24 hours 100.5F. Vital Signs - 24 hr 04/25/16 04/25/16 04/25/16 07:45 08:00 09:00 Temperature 98.9 F Pulse Rate 84 86 93 Respiratory 19 18 Rate O2 Sat by Pulse 97 Oximetry 04/25/16 04/25/16 04/25/16 10:00 11:00 11:30 Temperature Pulse Rate 85 87 89 Respiratory 21 16 Rate O2 Sat by Pulse 97 97 Oximetry 04/25/16 04/25/16 04/25/16 11:45 12:00 13:00 Temperature 98.8 F Pulse Rate 87 93 87 Respiratory 23 18 Rate O2 Sat by Pulse 95 94 L Oximetry 04/25/16 04/25/16 04/25/16 14:00 15:00 15:28 Temperature Pulse Rate 81 79 77 Respiratory 18 18 Rate O2 Sat by Pulse 97 97 Oximetry 04/25/16 04/25/16 04/25/16 16:00 16:06 16:18 Temperature 99 F Pulse Rate 76 77 101 H Respiratory 16 Rate O2 Sat by Pulse 98 Oximetry 04/25/16 04/25/16 04/25/16 17:00 18:00 19:00 Temperature Pulse Rate 80 80 80 Respiratory 15 20 20 Rate O2 Sat by Pulse 97 97 97 Oximetry 04/25/16 04/25/16 04/25/16 19:06 19:24 20:00 Temperature 100.3 F H Pulse Rate 79 80 83 Respiratory 20 Rate O2 Sat by Pulse 96 Oximetry 04/25/16 04/25/16 04/25/16 21:00 22:00 23:00 Temperature 100.5 F H Pulse Rate 84 77 82 Respiratory 20 20 21 Rate O2 Sat by Pulse 97 97 96 Oximetry 04/25/16 04/25/16 04/25/16 23:18 23:32 23:39 Temperature Pulse Rate 81 81 82 Respiratory 21 Rate O2 Sat by Pulse 97 Oximetry 04/26/16 04/26/16 04/26/16 00:00 01:00 02:00 Temperature 99.6 F Pulse Rate 84 82 81 Respiratory 14 16 19 Rate O2 Sat by Pulse 97 96 100 Oximetry 04/26/16 04/26/16 04/26/16 03:00 03:26 03:40 Temperature Pulse Rate 80 82 82 Respiratory 20 Rate O2 Sat by Pulse 96 Oximetry 04/26/16 04/26/16 04/26/16 04:00 05:00 06:00 Temperature 100.1 F H Pulse Rate 82 82 83 Respiratory 14 23 14 Rate O2 Sat by Pulse 97 96 97 Oximetry 04/26/16 07:00 Temperature Pulse Rate 83 Respiratory 20 Rate O2 Sat by Pulse 97 Oximetry ABP, PAP, CO, CI - Last 8 Hours Arterial Blood Pressure 126/51 Arterial Blood Pressure 130/54 Arterial Blood Pressure 124/53 Arterial Blood Pressure 129/54 Arterial Blood Pressure 118/52 Arterial Blood Pressure 125/55 Arterial Blood Pressure 113/48 Arterial Blood Pressure 118/48 Labs: Short CBC 04/26/16 Range/Units 05:00 WBC 8.8 (3.8-10.6) k/uL Hgb 8.0 L (13.0-17.5) gm/dL Hct 24.4 L (39.0-53.0) % Plt Count 199 (150-450) k/uL Neutrophils # Not Reportable BMP 04/25/16 04/26/16 14:15 05:00 Sodium 151 H Potassium 3.9 4.0 Chloride 111 H Carbon Dioxide 31 H BUN 42 H Creatinine 1.10 Glucose 128 H Calcium 8.4 Laboratory Tests 04/26/16 05:00 Calcium 8.4 Ionized Calcium [place] 5.3 Phosphorus 4.2 Magnesium 2.5 H Most recent lab results ABG pH 7.48 (7.35-7.45) H 04/25/16 07:10 ABG pCO2 36 mmHg (35-45) 04/25/16 07:10 ABG pO2 80 mmHg (83-108) L 04/25/16 07:10 ABG HCO3 27 mmol/L (21-25) H 04/25/16 07:10 ABG O2 Saturation 96.7 % (94-97) 04/25/16 07:10 Calcium 8.4 mg/dL (8.4-10.2) 04/26/16 05:00 Phosphorus 4.2 mg/dL (2.5-4.5) 04/26/16 05:00 Magnesium 2.5 mg/dL (1.6-2.3) H 04/26/16 05:00 Microbiology 04/20/16 23:39 Sputum Gram Stain - Final 04/20/16 23:39 Sputum Sputum Culture - Final Eikenella species 04/20/16 10:30 Bronchoalviolar Lavage - Right Gram Stain - Final 04/20/16 10:30 Bronchoalviolar Lavage - Right Bronchial Washings Culture - Final 04/20/16 10:30 Bronchoalviolar Lavage - Right Acid Fast Bacilli Smear - Final 04/20/16 10:30 Bronchoalviolar Lavage - Right Acid Fast Bacilli Culture - Preliminary 04/20/16 10:30 Bronchoalviolar Lavage - Right Fungal Culture - Preliminary 04/17/16 14:28 Urine,Clean Catch Urine Culture - Final 04/15/16 18:00 Nasal Swab Nasal Culture - Final IV Fluids: 0.9% normal saline at 20 mL per hour. Lungs: Few scattered rhonchi throughout to his upper lobes. Diminished to his bilateral bases right greater than left. Respirations are unlabored with mechanical ventilator support. Current ventilator settings are as follows: AC 16, TV 550, FiO2 40%, PEEP 5. Current peak pressures 23, current plateau pressures 18. O2 sat: 96% with mechanical ventilator support and current FiO2 40%. Heart: S1S2, irregular rhythm and controlled rate, negative for murmur, S3 or gallop. Bedside telemetry showing normal sinus rhythm with frequent PACs, heart rate currently 83. Sternum stable, chest incision clean with silverlon dressing clean and dry. Heart hugger in place. His Silverlon dressing will be replaced today as he is postop day #8. Right leg incisions clean dry and well approximated. No drainage noted. Right groin macerated area improved today with inter-dry and placed to his right groin. Generalized edema +2, scrotal and penile edema. Knee-high KARON hose and sequential compression devices in place to bilateral lower extremity Bruce. Waffle boots in place to bilateral feet. Abdomen: Soft, Positive bowel sounds present in all 4 quadrants. Patient's bowels have not moved since surgery, despite stool softeners, milk of magnesia, and Dulcolax suppositories. OG tube in place with vital high-protein tube feeding infusing at goal rate of 55 mL per hour. His automatic water flushes are 60 mL every 4 hours. CBGs: 123-135 mg/dL in the last 24 hours. U/O: Adequate, Nava catheter for accurate I&O. 800 mL output in the last 8 hours. Chest Tubes: Left pleural chest tube without air leak, remains to continuous wall suction at -20 cm of H2O. 20 mL of output the last 8 hours, 110 mL output in the last 24 hours. 24 hr Total: Intake & Output 04/24/16 04/25/16 04/26/16 04/27/16 06:59 06:59 06:59 06:59 Intake Total 2840.769 3249.629 4366.610 83 Output Total 4460 1927 3065 30 Balance -8669.604 4635.629 1301.610 53 Weight 126.4 kg 123.3 kg 127.1 kg Active Medications Generic Name Dose Route Start Last Admin Trade Name Freq PRN Reason Stop Dose Admin Acetaminophen 650 mg 04/20/16 19:38 Tylenol Tab PO Q6HR PRN Fever and/ or Pain Acetaminophen/Hydrocodone Bitart 2 each 04/19/16 14:56 04/25/16 12:16 [place] 5-325 PO 2 each Q4HR PRN Administration Severe Pain Acetaminophen/Hydrocodone Bitart 1 each 04/19/16 14:56 04/22/16 14:17 [place] 5-325 PO 1 each Q4HR PRN Administration Moderate Pain Acetylcysteine 200 mg 04/19/16 00:00 04/25/16 19:00 Mucomyst INHALATION 200 mg RT-QID ADAM Administration Albuterol/Ipratropium 3 ml 04/18/16 16:00 04/26/16 03:22 Duoneb 0.5 Mg-3 Mg/3 Ml Soln INHALATION 3 ml RT-Q4H ADAM Administration Albuterol/Ipratropium 3 ml 04/19/16 14:59 Duoneb 0.5 Mg-3 Mg/3 Ml Soln INHALATION RT-Q2H PRN Shortness Of Breath Or Wheezing Aspirin 81 mg 04/20/16 09:00 04/25/16 08:32 Aspirin PO 81 mg DAILY ADAM Administration Atorvastatin Calcium 40 mg 04/19/16 09:00 04/25/16 08:32 Lipitor PO 40 mg DAILY ADAM Administration Bacitracin 1 applic 04/24/16 22:30 04/25/16 20:39 Bacitracin Oint TOPICAL 1 applic BID ADAM Administration Bisacodyl 10 mg 04/19/16 14:58 04/25/16 12:41 Dulcolax RECTAL 10 mg DAILY PRN Administration Constipation Chlorhexidine Gluconate 15 ml 04/20/16 22:30 04/25/16 20:39 Peridex MUCOUS MEM 15 ml BID ADAM Administration Clopidogrel Bisulfate 75 mg 04/20/16 09:00 04/25/16 08:32 Plavix PO 75 mg DAILY ADAM Administration Docusate Sodium 100 mg 04/23/16 09:00 04/25/16 08:31 Colace Oral Soln PO 100 mg DAILY ADAM Administration Heparin Sodium (Porcine) 5,000 unit 04/19/16 16:00 04/26/16 00:07 Heparin SQ 5,000 unit Q8HR ADAM Administration Propofol 500 mg/ IV Solution 50 mls @ 0 mls/hr 04/18/16 15:00 04/26/16 06:55 IV 25 mcg/kg/min .Q0M ADAM 17.97 mls/hr Protocol Administration Titrate Piperacillin/Tazobactam/ 50 mls @ 12.5 mls/hr 04/20/16 10:45 04/26/16 00:09 Dextrose 3.375 gm/ IV Solution IVPB 12.5 mls/hr Q8HR ADAM Administration Phenylephrine HCl 40 mg/ 254 mls @ 0 mls/hr 04/21/16 08:00 Sodium Chloride IV .Q0M ADAM Protocol Titrate Vancomycin HCl 2,250 mg/ 500 mls @ 167 mls/hr 04/22/16 22:00 04/26/16 06:31 Sodium Chloride IVPB 167 mls/hr Q16H ADAM Administration Sodium Chloride 1,000 mls @ 20 mls/hr 04/23/16 09:30 04/25/16 08:51 Saline 0.9% IV 20 mls/hr .Q24H ADAM Administration Insulin Human Lispro 0 unit 04/22/16 08:30 04/26/16 04:06 Humalog SQ Not Given Q4HR ADAM Protocol Magnesium Hydroxide 2,400 mg 04/19/16 14:58 04/24/16 20:33 Milk Of Magnesia PO 2,400 mg BID PRN Administration Constipation Metoclopramide HCl 10 mg 04/25/16 12:00 04/26/16 06:31 Reglan IVP 04/27/16 12:01 10 mg Q6HR ADAM Administration Metoprolol Tartrate 25 mg 04/21/16 09:00 04/25/16 20:39 Lopressor PO 25 mg BID ADAM Administration Miscellaneous Information 1 each 04/18/16 14:58 Magnesium Per Protocol MISCELLANE DAILY PRN Per Protocol Protocol Miscellaneous Information 1 each 04/18/16 14:58 Phosphorus Per Protocol MISCELLANE DAILY PRN Per Protocol Protocol Miscellaneous Information 1 each 04/18/16 14:58 Potassium Per Protocol MISCELLANE DAILY PRN Per Protocol Protocol Morphine Sulfate 2 mg 04/18/16 14:51 Morphine Sulfate (Inj) IVP Q2H PRN Severe Pain Ondansetron HCl 4 mg 04/18/16 14:58 Zofran IVP Q6HR PRN Nausea And Vomiting Pantoprazole Sodium 40 mg 04/19/16 09:00 04/25/16 08:31 Protonix IVP 40 mg DAILY ADAM Administration Sodium Chloride 10 ml 04/18/16 21:00 04/25/16 20:39 Saline Flush IV 10 ml BID ADAM Administration Plan: Per Dr. Casey, a Fleet Enema has been ordered due to his constipation. We will increase his automatic water flushes to 100 mL per OG tube every 4 hours. Recheck BMP in the a.m. Ventilator management, weaning and antibiotic management per Dr. Oseguera. Continue inter-dry to his right groin to keep moisture away from his wound. <Vineet Meade - Last Filed: 04/26/16 11:16> Progress Note - Text The patient was seen and examined. I agree with the above assessment and plan. He was extubated this morning. He still has a fair amount of upper airway secretions which we have encouraged him to cough out. We will assist him with chest PT. His sodium remains elevated. He was started on gentle IV hydration and his Lasix has been discontinued. We will remove his remaining chest tube. He remains on antibiotics secondary to Eikenella in the sputum. We will also obtain a swallow evaluation prior to initiating a diet.
[2016-04-26] MEDS: ACETYLCYSTEINE 800 MG/4 ML VIAL INHALATION SCH ×4 (08:41→19:38)
[2016-04-26] MEDS: DOCUSATE ORAL SOLN 100 MG/10 ML CUP PO SCH (09:00)
[2016-04-26] MEDS: CHLORHEXIDINE GLUCONATE 15 ML CUP MUCOUS MEM SCH ×2 (09:00→20:44)
[2016-04-26] MEDS: METOPROLOL TARTRATE 25 MG TAB PO SCH ×2 (09:03→20:43)
[2016-04-26] MEDS: CLOPIDOGREL 75 MG TAB PO SCH (09:03)
[2016-04-26] MEDS: ASPIRIN 81 MG CHEW PO SCH (09:03)
[2016-04-26] MEDS: PANTOPRAZOLE 40 MG/10 ML VIAL IVP SCH (09:03)
[2016-04-26] MEDS: ATORVASTATIN 40 MG TAB PO SCH (09:03)
[2016-04-26 09:56] LABS: ABG Base Excess 4.4 mmol/L; ABG HCO3 28 mmol/L (21-25); ABG PCO2 36 mmHg (35-45); ABG PO2 86 mmHg (83-108); ABG TCO2 29 mmol/L (19-24)
[2016-04-26 10:18] LABS: ABG PCO2 34 mmHg (35-45)
[2016-04-26 10:19] LABS: ABG Base Excess 3.2 mmol/L; ABG HCO3 26 mmol/L (21-25); ABG PO2 99 mmHg (83-108); ABG TCO2 27 mmol/L (19-24)
--- NOTE | 2016-04-26 10:29 | PN ---
DATE OF SERVICE: 04/25/2016 Mr. Mccracken is a 76-year-old male who was admitted to the hospital with chest pain and ST-elevated [place]. patient underwent cardiac catheterization and found triple-vessel coronary artery disease and subsequently underwent a coronary artery bypass graft, postoperative day 7. Patient was mechanically ventilated post surgery and currently patient had weaning trial and tolerated for about an hour and was agitated after that and started back on mechanical ventilation now. Otherwise, chest x-ray today showed bilateral pleural effusions. Patient is off milrinone drip as well as pressor support. Current on antibiotics in the form of Zosyn. Complete review of systems could not be obtained from the patient. Current medications include: 1. [place] 5/325. 2. Mucomyst. 3. DuoNeb. 4. Aspirin. 5. Lipitor. 6. Bacitracin ointment. 7. Dulcolax. 8. Peridex. 9. Plavix. 10. Docusate. 11. Heparin subcu. 12. Humalog. 13. Milk of magnesia. 14. Reglan. 15. Lopressor. 16. Zofran. 17. Protonix. 18. Zosyn and 19. Vancomycin. PHYSICAL EXAM: A 76-year-old male lying in the bed, currently sedated and intubated. VITALS: Blood pressure is 122/47, pulse is 84, respirations 20, temperature afebrile, pulse ox 97% on 40% FiO2. T-max is 100.5. HEENT: Atraumatic, normocephalic. Neck is supple. No JVD. CVS: S1, S2 heard. Patient's midline scar is intact. Chest tubes are intact. LUNGS: Bilateral basilar crackles positive. No wheezing. Currently on mechanical ventilator. ABDOMEN: Soft, obese. Bowel sounds are present. 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 Chest x-ray showed bilateral pleural effusions. LABORATORY DATA: WBC 10.4, hemoglobin 7.8, platelets of 491. Sodium 149, potassium 3.8, chloride 101, bicarb is 30, BUN 40, creatinine 1.0. Calcium 8.3, magnesium 2.6. IMPRESSION: 1. Acute hypoxic respiratory failure post surgery. 2. Cardiogenic shock. Currently off milrinone drip and phenylephrine drip. 3. Coronary artery disease, status post coronary artery bypass graft, postop day 7 and aortic valve replacement. 4. Acute ST-elevated myocardial infarction on admission. 5. Bilateral pleural effusions. 6. Chronic obstructive pulmonary disease. 7. Osteoporosis. 8. Morbid obesity with a body mass index of 40.5. 9. Acute kidney injury. 10. Hypernatremia secondary to free water deficit. 11. Questionable right atrial thrombus on echocardiogram. 12. Acute blood loss anemia secondary to recent surgery. 13. Benign prostatic hypertrophy. 14. Eikenella species from the sputum culture. 15. Deep venous thrombosis prophylaxis with heparin subcutaneous. DISCUSSION AND PLAN: Patient will be continued on mechanical ventilation. Pulmonary is following the patient. Continue with antibiotics in the form of vancomycin and Zosyn. Patient was given Lasix does x1 today. Otherwise, will continue to monitor H and H and apply bacitracin cream at the excoriation site. Will continue the current management and follow up closely. Further recommendations based on clinical course. Prognosis is guarded. Pulmonary, CT Surgery and Cardiology are following this patient.
[2016-04-26] MEDS: BACITRACIN 500 UNIT/GM OINT 28.4 GM TUBE TOPICAL SCH ×2 (11:19→20:42)
[2016-04-26] MEDS: SODIUM CHLORIDE 0.9% 1,000 ML IV SCH (11:21)
--- NOTE | 2016-04-26 11:31 | PN ---
DATE OF SERVICE: 04/25/2016 Mr. Mccracken is a 76-year-old man who was admitted to the hospital with chest pain and ST elevated [place]. The patient underwent cardiac catheterization and was found to have triple vessel coronary artery disease. The patient subsequently underwent coronary artery bypass graft, postoperative day 7. The patient was mechanically ventilated postsurgery and currently the patient had a weaning trial, probably for about an hour, and was agitated after that and started back on mechanical ventilation now. Chest x-ray today showed bilateral pleural effusions. Patient is off milrinone drip as well as pressor support. Current antibiotics in the form of Zosyn. Complete ( ) could not be obtained from the patient. Current medications include [place], Mucomyst, DuoNeb, aspirin, Lipitor, bacitracin ointment, Dulcolax, Peridex, Lasix, Darvocet, heparin subcu, Humalog, milk of magnesia, Reglan, Lopressor, Zofran, Protonix. Zosyn, vancomycin. PHYSICAL EXAMINATION: A 76-year-old male, lying in the bed, currently sedated and intubated. VITALS: Blood pressure is 122/47, pulse is 84, respirations 20, temperature afebrile, pulse ox 97% on 40% FiO2. T-max is ( ). HEENT: Atraumatic, normocephalic. NECK: Supple. No JVD. CVS: S1, S2 heard. Midline ( ) intact. Chest tubes are intact. LUNGS: Bilateral basilar crackles positive. No wheezing. Currently on mechanical ventilator. ABDOMEN: Soft, obese. Bowel sounds are present. 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 EXTREMITIES: Bilateral lower extremity edema and scrotal edema. Chest x-ray showed bilateral pleural effusions. LABORATORY DATA: WBC 10.4, hemoglobin 7.8, platelets 191. Sodium 149, potassium 3.8, ( ), bicarb is 30, BUN 40, creatinine 1.0. Calcium 8.3, magnesium 2.6. IMPRESSION: 1. Acute hypoxic respiratory failure post surgery. 2. Cardiogenic shock. Currently off milrinone drip and ( ). 3. Coronary artery disease history of artery bypass graft, postoperative day 7, and aortic valve replacement. 4. Acute ST elevated [place] on admission. 5. Bilateral pleural effusions. 6. Chronic obstructive pulmonary disease. 7. Osteoporosis. 8. Morbid obesity with body mass index of 40.5. 9. Acute kidney injury. 10. Hyponatremia secondary to free water deficit. 11. Questionable right atrial thrombus on echocardiogram. 12. Acute blood loss anemia secondary to recent surgery. 13. Benign prostatic hypertrophy. 14. ( ) from sputum culture. 15. DVT prophylaxis, heparin subcu. DISCUSSION AND PLAN: Patient will be continued on mechanical ventilation pulmonary is following the patient. We will continue with antibiotics in the form of vancomycin and Zosyn. The patient was given Lasix dose x1 today. Otherwise, we will continue to monitor hemoglobin and hematocrit. Apply bacitracin cream at the excoriation site. Will continue the current management and follow up closely. Further recommendations based on clinical course. Prognosis is guarded. Pulmonary, CT surgery and cardiology are following this patient.
[2016-04-26] MEDS: DEXTROSE 5%-0.45% NACL 1,000 ML IV SCH (11:40)
--- NOTE | 2016-04-26 14:02 | P.PN ---
Subjective Principal diagnosis: Triple-vessel coronary artery disease, severe LV dysfunction. Right lower lobe collapse This 76-year-old male patient , post 3 vessel bypass surgery including PHAM to LAD saphenous vein graft to diagonal and ramus branches and aortic valve replacement was currently back in the intensive care unit and the patient is postop day 1. Note that the patient was taken back to the operating room after he arrived the ICU. The patient was having bleeding from his mediastinal chest tubes. Further examination was done and the bleeding site was identified and the local hemostasis was achieved and following that the patient was brought back to the intensive care unit. Overnight, the patient remains on a mechanical ventilator and he remains sedated with Diprivan. He was gradually taken off the vasopressin drip and the Gal-Synephrine drip and both are discontinued. Currently is on 8 mics of norepinephrine infusion and Primacor. He is hemodynamically stable. He remains on a mechanical ventilator and his series of chest x-rays that was done postop showed a partial atelectasis of the right upper lobe which subsequently improved. Morning's chest x-ray showed adequate expansion of the right upper lobe area and there is probably some small better pleural effusion. ET tube is in a good location. The patient has a Gorham-Candace catheter in place. There aren't pleural and mediastinal chest tubes are all in place. On the mechanical ventilator, the patient is on a assist-control mode at the rate of 20, tidal volume of 650, FiO2 of 80% and PEEP of 12. He is having some air leak within the mediastinal chest tube. Output however has improved and there is evidence of any acute bleeding. Hemoglobin is stable for now. Patient was reevaluated today on 04/24/2016, chest x-ray continues to show steady improvement, and slightly better compared to chest x-ray yesterday. Patient was given a short weaning trial on pressure support of 8 and CPAP, and according to the nurses he became quite restless, blood pressure was extremely high, and the patient was noted to be working hard to breathe. His work of breathing was noted to be significant, hence no more than half hour trial was given. Patient was placed back on assist control mode. Patient is postoperative day #6, triple vessel coronary artery bypass grafting and aortic valve replacement using a 25 mm pericardial bioprosthesis. Patient also required reexploration for postoperative bleeding. He is still on mechanical ventilation today, placed back on propofol at 20 mcg/kg/m, and he remains on Primacor. At 0.15 mcg/kg/m. Patient is receiving Lasix intermittently. ABG today showed a pO2 of 93 pCO2 of 40 pH of 7.45. Basic metabolic profile is relatively unremarkable, BUN is 37 creatinine is 1.1 Patient was reevaluated on 04/25/2016, patient was taken off propofol, and he was given a trial of weaning on pressure support of 12 which I will be cutting down the pressure support of 8, I doubt if the patient will fully wean and extubate today, and this is mostly because of his significant secretions in the endotracheal tube. Chest x-ray is basically about the same, I given a dose of Lasix 20 mg IV push earlier this morning. Off propofol, patient was noted to be slightly confused, but able to follow simple instructions like wiggling toes , squeezing hands, closing eyes. I believe the patient is neurologically intact , and his neurological status will improve with holding sedation longer period the only concern I have today is the fact that the patient has significant amount of secretions in the endotracheal tube and he is being suctioned frequently. Otherwise I would have extubated the patient today after a trial of pressure support of 8 and CPAP. ABG today showed a pO2 of 80 pCO2 of 36 pH of 7.48 and this was on 40% FiO2 and PEEP of 5 his electrolytes and renal profile were reviewed, sodium is a bit elevated, however the patient is receiving free water flushes via nasogastric tube and that will improve his hypernatremia. Patient was reevaluated today on 04/26/2016, he was weaned while I was at the bedside, placed initially on pressure support of 8 and CPAP, and patient tolerated the process quite well. Hence patient was extubated to a nasal cannula uneventfully. Chest x-ray is a bit improved compared to his x-ray in the last few days. His labs were noted about the same including a CBC with a hemoglobin of 8 and the [place] count of 8.8 CPAP ABG showed a pO2 of 99 pCO2 of 34 pH of 7.50. And this was on 40% FiO2 with pressure support of 8 and CPAP for about 45 minutes. His sodium remains high, hence I will increase the free water fluid boluses in the nasogastric tube. And we will change the IV fluid to D5W. Objective - Vital Signs Vital signs: Vital Signs Temp 100.5 F H 04/26/16 09:00 Pulse 88 04/26/16 12:00 Resp 26 H 04/26/16 12:00 BP 117/56 04/25/16 00:00 Pulse Ox 94 L 04/26/16 12:00 Intake & Output 04/25/16 04/26/16 04/26/16 18:59 06:59 18:59 Intake Total 2242.431 2124.179 421.5 Output Total 1725 1340 445 Balance 517.431 784.179 -23.5 Weight 127.1 kg 127.1 kg Intake: IV 936 886 256.5 0.9 300 300 40 0.9NS Pressure Bag 36 36 12 Piperacillin-Tazobactam 3 100 50 37.5 .375 gm In Dextrose/Water 1 50ml.bag @ 12.5 mls/hr IVPB Q8HR [facility] Rx#: [id number] Vancomycin 2,250 mg In 500 500 167 Sodium Chloride 0.9% 500 ml @ 167 mls/hr IVPB Q16H [facility] Rx#:[id number] Intake, IV Titration 246.431 148.179 Amount Milrinone-D5w Pmx 20 mg 65.953 In Dextrose/Water 1 100ml .bag @ 0.3 MCG/KG/MIN 12. 13 mls/hr IV .Q8H15M [facility] Rx#:[id number] Propofol 0 ml As IV .STK- 18 MED ONE Rx#:[id number] Propofol 500 mg In Empty 162.478 148.179 Bag 1 bag @ Titrate IV . Q0M [facility] Rx#:[id number] Oral 0 Tube Feeding 880 880 165 Other 180 210 Output: Chest Tube Drainage 80 80 40 Left Pleural 80 80 40 Urine 1645 1260 405 Other: Voiding Method Indwelling Catheter Indwelling Catheter Indwelling Catheter # Voids 1 # Bowel Movements 0 0 ABP, PAP, CO, CI - Last Documented Arterial Blood Pressure 131/54 Pulmonary Artery Pressure 31/25 Cardiac Output 7 Cardiac Index 3.0 - Exam Physical Exam: Revealed a 76-year-old white male on mechanical ventilation, awake, follows simple instructions, less confused today HEENT: Neck supple no neck masses, endotracheal tube is intact. Chest: [Crackles and rhonchi at the bases] Cardiac Exam: [Normal S1 and S2, no S3 gallop, no murmur.] Abdomen: [Soft, nontender, no megaly, no rebound, no guarding, normal bowel sounds.] Extremities: [No clubbing, no edema, no cyanosis.] Neurological Exam: Arousable, follows simple instructions, less confused today and follows instructions quite well. - Labs CBC & Chem 7: 04/26/16 05:00 04/26/16 05:00 Labs: Abnormal Lab Results - Last 24 Hours (Table) 04/25/16 04/25/16 04/25/16 Range/Units 14:15 16:25 20:24 RBC (4.30-5.90) m/uL Hgb (13.0-17.5) gm/dL Hct (39.0-53.0) % ABG pH (7.35-7.45) ABG pCO2 (35-45) mmHg ABG HCO3 (21-25) mmol/L ABG Total CO2 (19-24) mmol/L ABG O2 Saturation (94-97) % Sodium (137-145) mmol/L Chloride (98-107) mmol/L Carbon Dioxide (22-30) mmol/L BUN (9-20) mg/dL Glucose (74-99) mg/dL POC Glucose (mg/dL) 135 H 135 H (75-99) mg/dL Magnesium 2.4 H (1.6-2.3) mg/dL 04/26/16 04/26/16 04/26/16 Range/Units 00:06 04:05 05:00 RBC 2.59 L (4.30-5.90) m/uL Hgb 8.0 L (13.0-17.5) gm/dL Hct 24.4 L (39.0-53.0) % ABG pH (7.35-7.45) ABG pCO2 (35-45) mmHg ABG HCO3 (21-25) mmol/L ABG Total CO2 (19-24) mmol/L ABG O2 Saturation (94-97) % Sodium (137-145) mmol/L Chloride (98-107) mmol/L Carbon Dioxide (22-30) mmol/L BUN (9-20) mg/dL Glucose (74-99) mg/dL POC Glucose (mg/dL) 125 H 129 H (75-99) mg/dL Magnesium (1.6-2.3) mg/dL 04/26/16 04/26/16 04/26/16 Range/Units 05:00 07:20 10:11 RBC (4.30-5.90) m/uL Hgb (13.0-17.5) gm/dL Hct (39.0-53.0) % ABG pH 7.50 H 7.50 H (7.35-7.45) ABG pCO2 34 L (35-45) mmHg ABG HCO3 28 H 26 H (21-25) mmol/L ABG Total CO2 29 H 27 H (19-24) mmol/L ABG O2 Saturation 98.0 H (94-97) % Sodium 151 H (137-145) mmol/L Chloride 111 H (98-107) mmol/L Carbon Dioxide 31 H (22-30) mmol/L BUN 42 H (9-20) mg/dL Glucose 128 H (74-99) mg/dL POC Glucose (mg/dL) (75-99) mg/dL Magnesium 2.5 H (1.6-2.3) mg/dL Assessment and Plan Plan: 1 POD: #6, triple vessel coronary artery bypass grafting using the left internal mammary artery to the left anterior descending coronary artery, a reverse greater saphenous vein graft from the aorta to the early arising posterior descending coronary artery, a reverse greater saphenous vein graft from the aorta to the intramyocardial ramus intermedius artery proximally. 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 Intraoperative transesophageal echocardiogram and Epi-aortic scanning. Endoscopic vein harvesting of the right greater saphenous vein. #6 Reexploration for postoperative bleeding. On 04/18/2016, the patient is being seen postop. The patient underwent three- vessel bypass surgery and aortic valve replacement. Currently intubated on mechanical ventilator. Patient is on a multitude of pressors including a combination of norepinephrine infusion, vasopressin, Gal-Synephrine and Primacor. Most recent cardiac index at 2.7. Chest tubes are all in place. On 04/19/2016, the patient is being seen in follow-up. The patient was taken to the operating room force postoperative bleeding. The patient was taken back to the operating room and the patient was found to have bleeding from the ventricular pacing wire site in the right ventricle. He was given. He dad a resternotomy after the control of bleeding and currently is still in the process of being stabilized and weaned off the mechanical ventilator. During the process, he had a partial right upper lobe collapse which seems to be expanded on today's chest x-ray. He remains on a high degree of PEEP at 12 and he is having some minor air leak through the based on the chest tube. Lungs are well expanded and there is no evidence of pneumothorax. Hemodynamically better on lower doses of norepinephrine infusion and Primacor and the patient is currently off vasopressin and Gal-Synephrine. Sedated on a mechanical ventilator. Hemoglobin is stable in addition. On 04/20/2016 the patient is suspected to have a right lower lobe pneumonia. Morning chest x-ray showed a right lower lobe atelectasis and based on that a bronchoscopy was done and there was copious amount of respiratory secretions that was purulent of buying the bronchus intermedius and the right lower lobe. Therapeutic airway suctioning was done. Bronchial washing was obtained. Samples were sent for cultures and the patient was started on a broad-spectrum antibiotics and currently is on a combination of Zosyn and vancomycin. On 04/21/2016, the patient is still on a mechanical ventilator. The patient has developed right lung pneumonia with signs of sepsis. His chest x-ray is showing volume loss and atelectatic changes in the right lung base and the bronchoscopy and the bronchioloalveolar lavage was done and copious amount of purulent respiratory secretions were aspirated from the right lung and a repeat bronchoscopy will be done today based on the presence of ongoing volume loss. Patient is covered with a combination of Zosyn and vancomycin. He has a low- grade fever. He is hemodynamically doing well without any ongoing pressor dependence. Cardiac index is at 1.8 and the patient is on Primacor and the dose is being titrated. The mediastinal chest tubes have been removed. The patient is still on 8 of PEEP and FiO2 of 50%. On 04/22/2016, the patient underwent another bronchoscopy. This is the third bronchoscopy during which thick purulent mucous plugs are being aspirated from the right lung. Airway patency was again achieved. I consulted amount of secretions in the right lung is improved compared to the earlier bronchoscopy. Patient remains on examination Zosyn and vancomycin. The PEEP has been dropped down to 8 and a weight drop it down to 5 as long as the patient's oxidation improved. The patient is hemodynamically stable. He is on low-dose Primacor to augment the cardiac output. Chest tubes are in place. Gorham-Candace catheter in place and this will be removed. On 04/23/2016, patient underwent another bronchoscopy, and the findings were less impressive compared to the findings noted above by Dr. Sales. Less. And secretions noted, and no significant mucous plugs noted in the airways. Washings of the right upper lobe and right middle lobe as well as right lower lobe were done. Patient remains on antibiotics in the form of Zosyn and vancomycin. Remains on PEEP of 8, and FiO2 of 40%. Not quite ready for weaning at this point, but I would likely address weaning trials in the next 24 hours. On 04/24/2016, patient was given a short weaning trial on pressure support of 8 and CPAP, patient was noted to be short of breath, hypertensive, tachypneic, hence we did not pursue this further weaning. Or extubation. Patient will be placed back on assist control mode and will continue present supportive care measures. Obviously the patient is not quite ready to be extubated today. We' ll try again in the next 24 hours. On 04/25/2016, patient will be given longer weaning trials using pressure support of 12 and CPAP, and I will use pressure support of 8 and CPAP. My only concern however is the fact that the patient has significant endotracheal secretions, and I believe that will delay extubation probably another day. In the meantime we'll continue antibiotics, and continue suctioning. May even consider a trial of steroids. On 04/26/2016, patient was noted to tolerate CPAP and pressure support quite well, hence the patient was extubated to nasal cannula. I will go ahead in the meantime today switch his IV antibiotics to oral antibiotics. Continue to correct his hypernatremia. And free water will be allowed liberally. 2 coronary artery disease, 3 CHF with a preop ejection fraction of 20-25%, mild congestive heart failure noted on the chest x-ray, and the patient will receive Lasix 20 mg IV push 1 today. 4 questionable right atrial thrombus 5 scoliosis of the thoracic spine 6 benign prostatic hypertrophy 7 hyperlipidemia. 8 osteoarthritis 9 acute kidney injury, improved 10 obesity 11 postoperative anemia the patient was given a unit of packed RBC and the current hemoglobin is 8.0 Plan Patient was extubated to a nasal cannula after a 45 minute trial on pressure support of 8 and CPAP. We'll continue to address the multiple medical issues as above. Discussed his condition with the surgeon on the case. Critical care time is 35 minutes Time with Patient: Greater than 30
[2016-04-26 14:39] LABS: Glucose,Whole Blood 122 mg/dL (75-99)
[2016-04-26] MEDS: AMOXIC-POT CLAV 875-125MG 1 EACH TAB PO SCH ×2 (14:43→20:42)
--- NOTE | 2016-04-26 16:39 | P.PN ---
Subjective This 76-year-old gentleman was admitted with a non-ST elevation myocardial infarction and cardiomyopathy. Subsequently patient had a cardiac catheterization and coronary bypass surgery and aortic valve replacement. Patient had reexploration because of bleeding. Patient had prolonged stay in the ICU and has been on ventilator. His hemodynamic status has been stable. Patient had repeated bronchoscopies for secretions. However is a recent oxygenation is improved. Patient actually is extubated today. Patient is alert. So far is tolerating extubation very well. Hemodynamically stable. Objective - Vital Signs Vital signs: Vital Signs Temp 99.4 F 04/26/16 14:00 Pulse 88 04/26/16 15:47 Resp 21 04/26/16 15:00 BP 117/56 04/25/16 00:00 Pulse Ox 95 04/26/16 15:54 Intake & Output 04/25/16 04/26/16 04/26/16 18:59 06:59 18:59 Intake Total 2242.431 2124.179 636.5 Output Total 1725 1340 685 Balance 517.431 784.179 -48.5 Weight 127.1 kg 127.1 kg Intake: IV 936 886 471.5 0.9 300 300 40 0.9NS Pressure Bag 36 36 27 Dextrose 5%-0.45% NaCl 1, 200 000 ml @ 50 mls/hr IV . Q20H [facility] Rx#:[id number] Piperacillin-Tazobactam 3 100 50 37.5 .375 gm In Dextrose/Water 1 50ml.bag @ 12.5 mls/hr IVPB Q8HR [facility] Rx#: [id number] Vancomycin 2,250 mg In 500 500 167 Sodium Chloride 0.9% 500 ml @ 167 mls/hr IVPB Q16H [facility] Rx#:[id number] Intake, IV Titration 246.431 148.179 Amount Milrinone-D5w Pmx 20 mg 65.953 In Dextrose/Water 1 100ml .bag @ 0.3 MCG/KG/MIN 12. 13 mls/hr IV .Q8H15M [facility] Rx#:[id number] Propofol 0 ml As IV .STK- 18 [facility] Rx#:[id number] Propofol 500 mg In Empty 162.478 148.179 Bag 1 bag @ Titrate IV . Q0M [facility] Rx#:[id number] Oral 0 Tube Feeding 880 880 165 Other 180 210 Output: Chest Tube Drainage 80 80 40 Left Pleural 80 80 40 Urine 1645 1260 645 Other: Voiding Method Indwelling Catheter Indwelling Catheter Indwelling Catheter # Voids 1 1 # Bowel Movements 0 0 ABP, PAP, CO, CI - Last Documented Arterial Blood Pressure 139/57 Pulmonary Artery Pressure 31/25 Cardiac Output 7 Cardiac Index 3.0 - Exam GENERAL EXAM: Patient debated and sedated HEENT: Normocephalic. Normal reaction of pupils, equal size, normal range of extraocular motion. No erythema or exudates in the throat. NECK: No masses, no nuchal rigidity. CHEST: No chest wall deformity. LUNGS: Diminished breath sounds HEART: S1 and S2 normal and distant heart sounds.. ABDOMEN: No hepatosplenomegaly, normal bowel sounds, no guarding or rigidity. SKIN: No rashes CENTRAL NERVOUS SYSTEM: No focal deficits. EXTREMITIES: No cyanosis, clubbing or edema. - Labs CBC & Chem 7: 04/26/16 05:00 04/26/16 05:00 Labs: Abnormal Lab Results - Last 24 Hours (Table) 04/25/16 04/26/16 04/26/16 Range/Units 20:24 00:06 04:05 RBC (4.30-5.90) m/uL Hgb (13.0-17.5) gm/dL Hct (39.0-53.0) % ABG pH (7.35-7.45) ABG pCO2 (35-45) mmHg ABG HCO3 (21-25) mmol/L ABG Total CO2 (19-24) mmol/L ABG O2 Saturation (94-97) % Sodium (137-145) mmol/L Chloride (98-107) mmol/L Carbon Dioxide (22-30) mmol/L BUN (9-20) mg/dL Glucose (74-99) mg/dL POC Glucose (mg/dL) 135 H 125 H 129 H (75-99) mg/dL Magnesium (1.6-2.3) mg/dL 04/26/16 04/26/16 04/26/16 Range/Units 05:00 05:00 07:20 RBC 2.59 L (4.30-5.90) m/uL Hgb 8.0 L (13.0-17.5) gm/dL Hct 24.4 L (39.0-53.0) % ABG pH 7.50 H (7.35-7.45) ABG pCO2 (35-45) mmHg ABG HCO3 28 H (21-25) mmol/L ABG Total CO2 29 H (19-24) mmol/L ABG O2 Saturation (94-97) % Sodium 151 H (137-145) mmol/L Chloride 111 H (98-107) mmol/L Carbon Dioxide 31 H (22-30) mmol/L BUN 42 H (9-20) mg/dL Glucose 128 H (74-99) mg/dL POC Glucose (mg/dL) (75-99) mg/dL Magnesium 2.5 H (1.6-2.3) mg/dL 04/26/16 04/26/16 Range/Units 10:11 14:36 RBC (4.30-5.90) m/uL Hgb (13.0-17.5) gm/dL Hct (39.0-53.0) % ABG pH 7.50 H (7.35-7.45) ABG pCO2 34 L (35-45) mmHg ABG HCO3 26 H (21-25) mmol/L ABG Total CO2 27 H (19-24) mmol/L ABG O2 Saturation 98.0 H (94-97) % Sodium (137-145) mmol/L Chloride (98-107) mmol/L Carbon Dioxide (22-30) mmol/L BUN (9-20) mg/dL Glucose (74-99) mg/dL POC Glucose (mg/dL) 122 H (75-99) mg/dL Magnesium (1.6-2.3) mg/dL Assessment and Plan (1) Status post aorto-coronary artery bypass graft Status: Acute (2) NSTEMI (non-ST elevated myocardial infarction) Status: Acute (3) Cardiomyopathy Status: Acute (4) Congestive heart failure Status: Acute Plan: Patient is extubated today. Stable. No arrhythmias. We will continue current medical therapy. We will follow with you
[2016-04-26 17:18] LABS: Glucose,Whole Blood 105 mg/dL (75-99)
[2016-04-26 20:37] LABS: Glucose,Whole Blood 117 mg/dL (75-99)
[2016-04-26] MEDS: HYDROcodone/APAP 5-325MG 1 EACH TAB PO PRN (20:42)
[2016-04-26] MEDS: ACETAMINOPHEN TAB 325 MG TAB PO PRN (20:43)
[2016-04-27 00:40] LABS: Glucose,Whole Blood 109 mg/dL (75-99)
[2016-04-27 05:12] LABS: Glucose,Whole Blood 121 mg/dL (75-99)
[2016-04-27] MEDS: HYDROcodone/APAP 5-325MG 1 EACH TAB PO PRN (05:12)
[2016-04-27] MEDS: METOCLOPRAMIDE 5 MG/ML 2 ML VIAL IVP SCH ×3 (05:19→12:30)
[2016-04-27 05:37] LABS: Basophils # (A) 0.1 k/uL (0-0.2); Basophils % (A) 1 %; CH 29.6; CHCM 31.5; Eosinophils # (A) 0.2 k/uL (0-0.7); Eosinophils % (A) 2 %; HCT 26.6 % (39.0-53.0); HDW 3.34; HGB 8.4 gm/dL (13.0-17.5); Hypochromasia Slight; Luc # (Auto) 0.27; Luc % (Auto) 3; Lymphocytes # (A) 1.3 k/uL (1.0-4.8); Lymphocytes % (A) 12 %; MCH 29.8 pg (25.0-35.0); MCHC 31.5 g/dL (31.0-37.0); MCV 94.5 fL (80.0-100.0); Mean Platelet Volume 7.7; Monocytes # (A) 0.6 k/uL (0-1.0); Monocytes % (A) 6 %; Neutrophils # (A) 7.8 k/uL (1.3-7.7); Neutrophils % (A) 77 %; RBC 2.82 m/uL (4.30-5.90); RDW 15.2 % (11.5-15.5); WBC 10.1 k/uL (3.8-10.6); WBC (Perox) 10.23
[2016-04-27 05:52] LABS: Anion Gap 8 mmol/L; Blood Urea Nitrogen 36 mg/dL (9-20); Calcium 8.3 mg/dL (8.4-10.2); Carbon Dioxide 28 mmol/L (22-30); Chloride 113 mmol/L (98-107); Glucose 119 mg/dL (74-99); Magnesium 2.5 mg/dL (1.6-2.3); Non-African American GFR(MDRD) >60 (>60 ml/min/1.73 sqM); Phosphorous 3.3 mg/dL (2.5-4.5); Potassium 3.8 mmol/L (3.5-5.1); Sodium 149 mmol/L (137-145)
[2016-04-27] MEDS: METOPROLOL TARTRATE 25 MG TAB PO SCH ×3 (06:09→21:07)
--- NOTE | 2016-04-27 07:15 | XR ---
EXAMINATION TYPE: XR chest 1V portable DATE OF EXAM: 04/27/2016 6:32 AM COMPARISON: 04/26/2016 HISTORY: Shortness of breath FINDINGS: There are bilateral pleural effusions with cardiomegaly and bibasilar infiltrate. There is a diffuse interstitial pattern. ET and NG tube have been removed. PICC line stable in position. Postop change noted IMPRESSION: 1. Stable bilateral infiltrate and pleural effusion underlying CHF not excluded. Correlate
[2016-04-27 07:58] LABS: Glucose,Whole Blood 119 mg/dL (75-99)
[2016-04-27] MEDS: ACETYLCYSTEINE 800 MG/4 ML VIAL INHALATION SCH ×4 (08:01→20:02)
[2016-04-27] MEDS: IPRATROPIUM-ALBUTEROL 3 ML NEB INHALATION SCH ×4 (08:01→20:02)
[2016-04-27] MEDS: INSULIN LISPRO (humaLOG) 300 UNIT/3 ML VIAL SQ SCH ×6 (08:42→23:20)
[2016-04-27] MEDS: HEPARIN SODIUM,PORCINE 5,000 UNIT/ML 1 ML VIAL SQ SCH ×4 (08:50→23:21)
[2016-04-27] MEDS: AMOXIC-POT CLAV 875-125MG 1 EACH TAB PO SCH ×2 (08:50→21:07)
[2016-04-27] MEDS: DEXTROSE 5%-0.45% NACL 1,000 ML IV SCH (08:50)
[2016-04-27] MEDS: BACITRACIN 500 UNIT/GM OINT 28.4 GM TUBE TOPICAL SCH ×2 (08:51→21:07)
[2016-04-27] MEDS: ATORVASTATIN 40 MG TAB PO SCH (08:51)
[2016-04-27] MEDS: CHLORHEXIDINE GLUCONATE 15 ML CUP MUCOUS MEM SCH ×2 (08:51→21:07)
[2016-04-27] MEDS: ASPIRIN 81 MG CHEW PO SCH (08:51)
[2016-04-27] MEDS: CLOPIDOGREL 75 MG TAB PO SCH (08:51)
[2016-04-27] MEDS: DOCUSATE ORAL SOLN 100 MG/10 ML CUP PO SCH (08:52)
[2016-04-27] MEDS: PANTOPRAZOLE 40 MG/10 ML VIAL IVP SCH (08:52)
[2016-04-27] MEDS ORDERED: POTASSIUM CHLORIDE ORAL LIQUID 40 MEQ/30 ML CUP NG-TUBE SCH (09:00)
[2016-04-27] MEDS ORDERED: FUROSEMIDE 10 MG/ML 2 ML VIAL IV ONE (10:04)
[2016-04-27] MEDS ORDERED: DEXTROSE 5% IN WATER 100 ML with AMIODARONE 150 MG IV ONE (10:05)
--- NOTE | 2016-04-27 10:59 | P.PN ---
Progress Note - Text CV Surgery Nursing Progress Note POD: #9, triple-vessel coronary artery bypass grafting utilizing the left internal mammary artery to left anterior descending coronary artery, a reverse greater saphenous vein graft from the aorta to the posterior descending coronary artery, a reverse greater saphenous vein graft to the ramus intermedius artery. Aortic valve replacement using a 25 mm pericardial bioprosthesis. Intraoperative transesophageal echocardiogram and epi-aortic ultrasonography. Endoscopic vein harvesting of the right greater saphenous vein. #9, reexploration for postoperative bleeding. Patient awake and alert, with generalized weakness, no distress noted, no specific complaints. Vital Signs: T-max 100.4F Vital Signs - 24 hr 04/26/16 04/26/16 04/26/16 10:49 11:00 11:30 Temperature Pulse Rate 90 88 Respiratory 27 H Rate O2 Sat by Pulse 98 96 Oximetry 04/26/16 04/26/16 04/26/16 11:39 12:00 13:00 Temperature Pulse Rate 89 88 91 Respiratory 18 24 Rate O2 Sat by Pulse 94 L 94 L Oximetry 04/26/16 04/26/16 04/26/16 14:00 15:00 15:47 Temperature 99.4 F Pulse Rate 93 87 88 Respiratory 23 21 Rate O2 Sat by Pulse 96 94 L Oximetry 04/26/16 04/26/16 04/26/16 15:54 16:00 17:00 Temperature Pulse Rate 90 93 Respiratory 27 H 23 Rate O2 Sat by Pulse 95 98 91 L Oximetry 04/26/16 04/26/16 04/26/16 18:00 19:00 19:35 Temperature 100.0 F H Pulse Rate 89 89 89 Respiratory 28 H 19 Rate O2 Sat by Pulse 93 L 95 Oximetry 04/26/16 04/26/16 04/26/16 19:50 20:00 21:00 Temperature 100.4 F H Pulse Rate 79 92 89 Respiratory 26 H 17 Rate O2 Sat by Pulse 94 L 92 L Oximetry 04/26/16 04/26/16 04/27/16 22:00 23:00 00:00 Temperature 98.8 F Pulse Rate 80 89 82 Respiratory 13 18 17 Rate O2 Sat by Pulse 97 95 96 Oximetry 04/27/16 04/27/16 04/27/16 01:00 02:00 03:00 Temperature Pulse Rate 83 99 88 Respiratory 20 25 H 19 Rate O2 Sat by Pulse 95 94 L 96 Oximetry 04/27/16 04/27/16 04/27/16 04:00 05:00 06:00 Temperature 98.2 F Pulse Rate 100 122 H 126 H Respiratory 12 26 H 23 Rate O2 Sat by Pulse 93 L 94 L 91 L Oximetry 04/27/16 04/27/16 04/27/16 07:00 08:00 08:01 Temperature Pulse Rate 108 H 103 H 112 H Respiratory 23 22 Rate O2 Sat by Pulse 96 96 Oximetry 04/27/16 08:22 Temperature Pulse Rate 100 Respiratory Rate O2 Sat by Pulse Oximetry ABP, PAP, CO, CI - Last 8 Hours Arterial Blood Pressure 132/65 Arterial Blood Pressure 125/69 Arterial Blood Pressure 123/62 Arterial Blood Pressure 128/53 Arterial Blood Pressure 139/62 Arterial Blood Pressure 113/54 Labs: Short CBC 04/27/16 Range/Units 05:10 WBC 10.1 (3.8-10.6) k/uL Hgb 8.4 L (13.0-17.5) gm/dL Hct 26.6 L (39.0-53.0) % Plt Count 235 (150-450) k/uL Neutrophils # 7.8 H (1.3-7.7) k/uL BMP 04/27/16 05:10 Sodium 149 H Potassium 3.8 Chloride 113 H Carbon Dioxide 28 BUN 36 H Creatinine 0.90 Glucose 119 H Calcium 8.3 L IV Fluids: D5W 0.45 normal saline at 50 mL/h. Lungs: Respirations are even and nonlabored. Breath sounds diminished bilateral bases with few scattered rhonchi. O2 sat: 96% on 5 L nasal cannula Heart: S1S2, bedside telemetry shows sinus rhythm with PACs alternating with atrial fibrillation. Sternum: stable, chest incision clean with dressing clean and dry. Right leg incisions clean and well approximated. Right groin cath site excoriated with small area of eschar. Abdomen: Soft and large. Positive bowel sounds present in all 4 quadrants. CBGs: 105-122 mg/dL U/O: Adequate via Nava catheter to dependent drainage. 24 hr Total: Intake & Output 04/25/16 04/26/16 04/27/16 04/28/16 06:59 06:59 06:59 06:59 Intake Total 3249.629 4366.610 1431.5 159 Output Total 1927 3065 1715 160 Balance 0963.343 1681.610 -283.5 -1 Weight 123.3 kg 127.1 kg 127.1 kg 127.6 kg Active Medications: Active Medications Acetaminophen (Tylenol Tab) 650 mg PO Q6HR PRN PRN Reason: Fever and/ or Pain Last Admin: 04/26/16 20:43 Dose: 650 mg Acetaminophen/Hydrocodone Bitart ([place] 5-325) 2 each PO Q4HR PRN PRN Reason: Severe Pain Last Admin: 04/25/16 12:16 Dose: 2 each Acetaminophen/Hydrocodone Bitart ([place] 5-325) 1 each PO Q4HR PRN PRN Reason: Moderate Pain Last Admin: 04/27/16 05:12 Dose: 1 each Acetylcysteine (Mucomyst) 200 mg INHALATION RT-QID [facility] Last Admin: 04/27/16 08:01 Dose: 200 mg Albuterol/Ipratropium (Duoneb 0.5 Mg-3 Mg/3 Ml Soln) 3 ml INHALATION RT-Q2H PRN PRN Reason: Shortness Of Breath Or Wheezing Albuterol/Ipratropium (Duoneb 0.5 Mg-3 Mg/3 Ml Soln) 3 ml INHALATION RT-QID [facility] Last Admin: 04/27/16 08:01 Dose: 3 ml Amoxicillin/Clavulanate Potassium (Augmentin 875-125) 1 each PO Q12HR [facility] Last Admin: 04/27/16 08:50 Dose: 1 each Aspirin (Aspirin) 81 mg PO DAILY [facility] Last Admin: 04/27/16 08:51 Dose: 81 mg Atorvastatin Calcium (Lipitor) 40 mg PO DAILY [facility] Last Admin: 04/27/16 08:51 Dose: 40 mg Bacitracin (Bacitracin Oint) 1 applic TOPICAL BID [facility] Last Admin: 04/27/16 08:51 Dose: 1 applic Bisacodyl (Dulcolax) 10 mg RECTAL DAILY PRN PRN Reason: Constipation Last Admin: 04/25/16 12:41 Dose: 10 mg Chlorhexidine Gluconate (Peridex) 15 ml MUCOUS MEM BID [facility] Last Admin: 04/27/16 08:51 Dose: 15 ml Clopidogrel Bisulfate (Plavix) 75 mg PO DAILY [facility] Last Admin: 04/27/16 08:51 Dose: 75 mg Docusate Sodium (Colace Oral Soln) 100 mg PO DAILY [facility] Last Admin: 04/27/16 08:52 Dose: 100 mg Heparin Sodium (Porcine) (Heparin) 5,000 unit SQ Q8HR [facility] Last Admin: 04/27/16 08:50 Dose: 5,000 unit Dextrose/Sodium Chloride (Dextrose 5%-1/2ns Iv Soln) 1,000 mls @ 50 mls/hr IV .Q20H [facility] Last Admin: 04/27/16 08:50 Dose: 50 mls/hr Insulin Human Lispro (Humalog) 0 unit SQ Q4HR [facility] PRN Reason: Protocol Last Admin: 04/27/16 08:50 Dose: Not Given Magnesium Hydroxide (Milk Of Magnesia) 2,400 mg PO BID PRN PRN Reason: Constipation Last Admin: 04/24/16 20:33 Dose: 2,400 mg Metoclopramide HCl (Reglan) 10 mg IVP Q6HR [facility] Stop: 04/27/16 12:01 Last Admin: 04/27/16 08:43 Dose: Not Given Metoprolol Tartrate (Lopressor) 25 mg PO BID [facility] Last Admin: 04/27/16 06:09 Dose: 25 mg Miscellaneous Information (Magnesium Per Protocol) 1 each MISCELLANE DAILY PRN ; Protocol PRN Reason: Per Protocol Miscellaneous Information (Phosphorus Per Protocol) 1 each MISCELLANE DAILY PRN ; Protocol PRN Reason: Per Protocol Miscellaneous Information (Potassium Per Protocol) 1 each MISCELLANE DAILY PRN ; Protocol PRN Reason: Per Protocol Ondansetron HCl (Zofran) 4 mg IVP Q6HR PRN PRN Reason: Nausea And Vomiting Pantoprazole Sodium (Protonix) 40 mg IVP DAILY [facility] Last Admin: 04/27/16 08:52 Dose: 40 mg Loading dose of amiodarone being administered right now Plan: Status post CABG aVR, reoperative bleed Slow progress Continue aggressive pulmonary toilet utilizing incentive spirometry, coughing and deep breathing, and inhalation treatments per respiratory therapy. Continue to increase activity as tolerated-physical therapy and occupational therapy consulted and seeing patient. Amiodarone bolus as above for A. fib
[2016-04-27 12:32] LABS: Glucose,Whole Blood 134 mg/dL (75-99)
--- NOTE | 2016-04-27 13:01 | PN ---
DATE OF SERVICE: 04/26/2016 INTERVAL HISTORY: Mr. Mccracken is a 76-year-old male who was admitted to the hospital with acute ST elevated NC with chest pain and was found to have ( ). Patient subsequently coronary artery bypass graft, postoperative day 8. Patient was extubated today. Otherwise, chest x-ray still showed pleural effusions. Laboratory data reviewed showed hypernatremia due to free water deficits and is being given free water boluses through NG tube. Otherwise patient is on antibiotics in the form of Zosyn. No fever. No chills. No acute overnight issues. Complete review of systems could not be obtained from the patient currently. PHYSICAL EXAMINATION: VITALS: Blood pressure is 141/59, pulse is 92, respiration 19, pulse ox is 95% on nasal cannula. HEENT: Atraumatic, normocephalic. Neck is supple. No JVD. CVS: S1, S2 heard. No murmurs, no gallops. LUNGS: Bilateral air entry is present. Crackles positive. Nonlabored breathing. No wheezing. ABDOMEN: Soft, obese. Bowel sounds are present. MEDICAL CLERK: Awake, alert, but could not communicate. No focal neurologic deficit. EXTREMITIES: Bilateral lower extremity edema. Pulses palpable bilaterally. No clubbing or cyanosis. PSYCHIATRIC: Cooperative, could not be assessed completely. LABORATORY DATA: WBC 8.8, hemoglobin 8.0, platelets 199, sodium 151, potassium 4.0, chloride 101, bicarb is 31, BUN 42, creatinine 1.1. Calcium 8.4, albumin 2.5, vancomycin 78.6. IMPRESSION: 1. Acute hypoxic respiratory failure, post surgery. 2. Cardiogenic shock. Patient is off milrinone drip and ( ) drip, which is status post coronary artery bypass graft, triple vessel disease postop day 8 and aortic valve replacement. 3. Acute ST elevation myocardial infarction on admission. 4. Bilateral pleural effusion. 5. Hypernatremia due to free water deficit. 6. Congestive heart failure with ejection fraction 20 to 25% preoperatively. 7. Chronic obstructive pulmonary disease. 8. Osteoporosis. 9. Morbid obesity with a body mass index of 40.5. 10. Acute kidney injury most likely prerenal, improving. 11. Questionable right atrial thrombus on echocardiogram initially. 12. Acute blood loss anemia secondary to recent surgery, stable now. 13. Benign prostatic hypertrophy. 14. Deep venous thrombosis prophylaxis with Heparin subcu. 15. ( ) species in the sputum culture. DISCUSSION AND PLAN: A 76-year-old male admitted to the hospital with ST elevated myocardial infarction and currently postoperative day 8 of coronary artery bypass graft. Patient on IV Lasix. Continue the antibiotics. Patient currently extubated in the morning today. We will continue to follow closely and further recommendation based on the clinical course. Cardiology and pulmonary and CV surgery are following this patient.
--- NOTE | 2016-04-27 13:24 | P.PN ---
Subjective Principal diagnosis: Triple-vessel coronary artery disease, severe LV dysfunction. Right lower lobe collapse This 76-year-old male patient , post 3 vessel bypass surgery including PHAM to LAD saphenous vein graft to diagonal and ramus branches and aortic valve replacement was currently back in the intensive care unit and the patient is postop day 1. Note that the patient was taken back to the operating room after he arrived the ICU. The patient was having bleeding from his mediastinal chest tubes. Further examination was done and the bleeding site was identified and the local hemostasis was achieved and following that the patient was brought back to the intensive care unit. Overnight, the patient remains on a mechanical ventilator and he remains sedated with Diprivan. He was gradually taken off the vasopressin drip and the Gal-Synephrine drip and both are discontinued. Currently is on 8 mics of norepinephrine infusion and Primacor. He is hemodynamically stable. He remains on a mechanical ventilator and his series of chest x-rays that was done postop showed a partial atelectasis of the right upper lobe which subsequently improved. Morning's chest x-ray showed adequate expansion of the right upper lobe area and there is probably some small better pleural effusion. ET tube is in a good location. The patient has a [place]-Candace catheter in place. There aren't pleural and mediastinal chest tubes are all in place. On the mechanical ventilator, the patient is on a assist-control mode at the rate of 20, tidal volume of 650, FiO2 of 80% and PEEP of 12. He is having some air leak within the mediastinal chest tube. Output however has improved and there is evidence of any acute bleeding. Hemoglobin is stable for now. Patient was reevaluated today on 04/24/2016, chest x-ray continues to show steady improvement, and slightly better compared to chest x-ray yesterday. Patient was given a short weaning trial on pressure support of 8 and CPAP, and according to the nurses he became quite restless, blood pressure was extremely high, and the patient was noted to be working hard to breathe. His work of breathing was noted to be significant, hence no more than half hour trial was given. Patient was placed back on assist control mode. Patient is postoperative day #6, triple vessel coronary artery bypass grafting and aortic valve replacement using a 25 mm pericardial bioprosthesis. Patient also required reexploration for postoperative bleeding. He is still on mechanical ventilation today, placed back on propofol at 20 mcg/kg/m, and he remains on Primacor. At 0.15 mcg/kg/m. Patient is receiving Lasix intermittently. ABG today showed a pO2 of 93 pCO2 of 40 pH of 7.45. Basic metabolic profile is relatively unremarkable, BUN is 37 creatinine is 1.1 Patient was reevaluated on 04/25/2016, patient was taken off propofol, and he was given a trial of weaning on pressure support of 12 which I will be cutting down the pressure support of 8, I doubt if the patient will fully wean and extubate today, and this is mostly because of his significant secretions in the endotracheal tube. Chest x-ray is basically about the same, I given a dose of Lasix 20 mg IV push earlier this morning. Off propofol, patient was noted to be slightly confused, but able to follow simple instructions like wiggling toes , squeezing hands, closing eyes. I believe the patient is neurologically intact , and his neurological status will improve with holding sedation longer period the only concern I have today is the fact that the patient has significant amount of secretions in the endotracheal tube and he is being suctioned frequently. Otherwise I would have extubated the patient today after a trial of pressure support of 8 and CPAP. ABG today showed a pO2 of 80 pCO2 of 36 pH of 7.48 and this was on 40% FiO2 and PEEP of 5 his electrolytes and renal profile were reviewed, sodium is a bit elevated, however the patient is receiving free water flushes via nasogastric tube and that will improve his hypernatremia. Patient was reevaluated today on 04/26/2016, he was weaned while I was at the bedside, placed initially on pressure support of 8 and CPAP, and patient tolerated the process quite well. Hence patient was extubated to a nasal cannula uneventfully. Chest x-ray is a bit improved compared to his x-ray in the last few days. His labs were noted about the same including a CBC with a hemoglobin of 8 and the [place] count of 8.8 CPAP ABG showed a pO2 of 99 pCO2 of 34 pH of 7.50. And this was on 40% FiO2 with pressure support of 8 and CPAP for about 45 minutes. His sodium remains high, hence I will increase the free water fluid boluses in the nasogastric tube. And we will change the IV fluid to D5W. Patient was reevaluated today, he tolerated the extubation well, and he remains on 5 L nasal cannula. Patient has good cough, he is able to clear his secretions, however he went last night into atrial fibrillation with RVR, and he was given IV amiodarone. His Lopressor dose will be increased, apparently he failed the swallow test, and he remains nothing by mouth for now. I did give the patient a dose of Lasix 20 mg IV push because of his slightly abnormal chest x-ray suggestive of mild congestive changes. Labs were reviewed, sodium remains a bit high at 149 renal profile is relatively normal CBC showed a hemoglobin of 8.4. Objective - Vital Signs Vital signs: Vital Signs Temp 98.1 F 04/27/16 12:00 Pulse 89 04/27/16 13:00 Resp 30 H 04/27/16 13:00 BP 117/56 04/25/16 00:00 Pulse Ox 95 04/27/16 13:00 Intake & Output 04/26/16 04/27/16 04/27/16 18:59 06:59 18:59 Intake Total 795.5 636 371 Output Total 684 261 7954 Balance -164.5 -119 -644 Weight 127.1 kg 127.6 kg Intake: IV 630.5 636 371 0.9 40 0.9NS Pressure Bag 36 36 21 Dextrose 5%-0.45% NaCl 1, 350 600 350 000 ml @ 50 mls/hr IV . Q20H ADAM Rx#:[id number] Piperacillin-Tazobactam 3 37.5 .375 gm In Dextrose/Water 1 50ml.bag @ 12.5 mls/hr IVPB Q8HR ADAM Rx#: [id number] Vancomycin 2,250 mg In 167 Sodium Chloride 0.9% 500 ml @ 167 mls/hr IVPB Q16H ADAM Rx#:[id number] Oral 0 Tube Feeding 165 Output: Chest Tube Drainage 40 Left Pleural 40 Urine 332 [id number] Other: Voiding Method Indwelling Catheter Indwelling Catheter # Voids 1 # Bowel Movements 0 ABP, PAP, CO, CI - Last Documented Arterial Blood Pressure 141/64 Pulmonary Artery Pressure 31/25 Cardiac Output 7 Cardiac Index 3.0 - Exam Physical Exam: Revealed a 76-year-old white male on mechanical ventilation, awake, follows simple instructions, less confused today HEENT: Neck supple no neck masses, endotracheal tube is intact. Chest: [Crackles and rhonchi at the bases] Cardiac Exam: [Normal S1 and S2, no S3 gallop, no murmur.] Abdomen: [Soft, nontender, no megaly, no rebound, no guarding, normal bowel sounds.] Extremities: [No clubbing, no edema, no cyanosis.] I examined the laceration in the right groin area, and I suggested further evaluation of this area by cardiology and by thoracic surgery since it seems to be related to his previous cardiac catheterization and catheter placement. Neurological Exam: Arousable, follows simple instructions, less confused today and follows instructions quite well. - Labs CBC & Chem 7: 04/27/16 05:10 04/27/16 05:10 Labs: Abnormal Lab Results - Last 24 Hours (Table) 04/26/16 04/26/16 04/26/16 Range/Units 14:36 17:16 20:35 RBC (4.30-5.90) m/uL Hgb (13.0-17.5) gm/dL Hct (39.0-53.0) % Neutrophils # (1.3-7.7) k/uL Sodium (137-145) mmol/L Chloride (98-107) mmol/L BUN (9-20) mg/dL Glucose (74-99) mg/dL POC Glucose (mg/dL) 122 H 105 H 117 H (75-99) mg/dL Calcium (8.4-10.2) mg/dL Magnesium (1.6-2.3) mg/dL 04/27/16 04/27/16 04/27/16 Range/Units 00:36 05:10 05:10 RBC 2.82 L (4.30-5.90) m/uL Hgb 8.4 L (13.0-17.5) gm/dL Hct 26.6 L (39.0-53.0) % Neutrophils # 7.8 H (1.3-7.7) k/uL Sodium 149 H (137-145) mmol/L Chloride 113 H (98-107) mmol/L BUN 36 H (9-20) mg/dL Glucose 119 H (74-99) mg/dL POC Glucose (mg/dL) 109 H (75-99) mg/dL Calcium 8.3 L (8.4-10.2) mg/dL Magnesium 2.5 H (1.6-2.3) mg/dL 04/27/16 04/27/16 04/27/16 Range/Units 05:10 07:56 12:30 RBC (4.30-5.90) m/uL Hgb (13.0-17.5) gm/dL Hct (39.0-53.0) % Neutrophils # (1.3-7.7) k/uL Sodium (137-145) mmol/L Chloride (98-107) mmol/L BUN (9-20) mg/dL Glucose (74-99) mg/dL POC Glucose (mg/dL) 121 H 119 H 134 H (75-99) mg/dL Calcium (8.4-10.2) mg/dL Magnesium (1.6-2.3) mg/dL Assessment and Plan Plan: 1 POD: #6, triple vessel coronary artery bypass grafting using the left internal mammary artery to the left anterior descending coronary artery, a reverse greater saphenous vein graft from the aorta to the early arising posterior descending coronary artery, a reverse greater saphenous vein graft from the aorta to the intramyocardial ramus intermedius artery proximally. 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 Intraoperative transesophageal echocardiogram and Epi-aortic scanning. Endoscopic vein harvesting of the right greater saphenous vein. #6 Reexploration for postoperative bleeding. On 04/18/2016, the patient is being seen postop. The patient underwent three- vessel bypass surgery and aortic valve replacement. Currently intubated on mechanical ventilator. Patient is on a multitude of pressors including a combination of norepinephrine infusion, vasopressin, Gal-Synephrine and Primacor. Most recent cardiac index at 2.7. Chest tubes are all in place. On 04/19/2016, the patient is being seen in follow-up. The patient was taken to the operating room force postoperative bleeding. The patient was taken back to the operating room and the patient was found to have bleeding from the ventricular pacing wire site in the right ventricle. He was given. He dad a resternotomy after the control of bleeding and currently is still in the process of being stabilized and weaned off the mechanical ventilator. During the process, he had a partial right upper lobe collapse which seems to be expanded on today's chest x-ray. He remains on a high degree of PEEP at 12 and he is having some minor air leak through the based on the chest tube. Lungs are well expanded and there is no evidence of pneumothorax. Hemodynamically better on lower doses of norepinephrine infusion and Primacor and the patient is currently off vasopressin and Gal-Synephrine. Sedated on a mechanical ventilator. Hemoglobin is stable in addition. On 04/20/2016 the patient is suspected to have a right lower lobe pneumonia. Morning chest x-ray showed a right lower lobe atelectasis and based on that a bronchoscopy was done and there was copious amount of respiratory secretions that was purulent of buying the bronchus intermedius and the right lower lobe. Therapeutic airway suctioning was done. Bronchial washing was obtained. Samples were sent for cultures and the patient was started on a broad-spectrum antibiotics and currently is on a combination of Zosyn and vancomycin. On 04/21/2016, the patient is still on a mechanical ventilator. The patient has developed right lung pneumonia with signs of sepsis. His chest x-ray is showing volume loss and atelectatic changes in the right lung base and the bronchoscopy and the bronchioloalveolar lavage was done and copious amount of purulent respiratory secretions were aspirated from the right lung and a repeat bronchoscopy will be done today based on the presence of ongoing volume loss. Patient is covered with a combination of Zosyn and vancomycin. He has a low- grade fever. He is hemodynamically doing well without any ongoing pressor dependence. Cardiac index is at 1.8 and the patient is on Primacor and the dose is being titrated. The mediastinal chest tubes have been removed. The patient is still on 8 of PEEP and FiO2 of 50%. On 04/22/2016, the patient underwent another bronchoscopy. This is the third bronchoscopy during which thick purulent mucous plugs are being aspirated from the right lung. Airway patency was again achieved. I consulted amount of secretions in the right lung is improved compared to the earlier bronchoscopy. Patient remains on examination Zosyn and vancomycin. The PEEP has been dropped down to 8 and a weight drop it down to 5 as long as the patient's oxidation improved. The patient is hemodynamically stable. He is on low-dose Primacor to augment the cardiac output. Chest tubes are in place. [place]-Candace catheter in place and this will be removed. On 04/23/2016, patient underwent another bronchoscopy, and the findings were less impressive compared to the findings noted above by Dr. Sales. Less. And secretions noted, and no significant mucous plugs noted in the airways. Washings of the right upper lobe and right middle lobe as well as right lower lobe were done. Patient remains on antibiotics in the form of Zosyn and vancomycin. Remains on PEEP of 8, and FiO2 of 40%. Not quite ready for weaning at this point, but I would likely address weaning trials in the next 24 hours. On 04/24/2016, patient was given a short weaning trial on pressure support of 8 and CPAP, patient was noted to be short of breath, hypertensive, tachypneic, hence we did not pursue this further weaning. Or extubation. Patient will be placed back on assist control mode and will continue present supportive care measures. Obviously the patient is not quite ready to be extubated today. We' ll try again in the next 24 hours. On 04/25/2016, patient will be given longer weaning trials using pressure support of 12 and CPAP, and I will use pressure support of 8 and CPAP. My only concern however is the fact that the patient has significant endotracheal secretions, and I believe that will delay extubation probably another day. In the meantime we'll continue antibiotics, and continue suctioning. May even consider a trial of steroids. On 04/26/2016, patient was noted to tolerate CPAP and pressure support quite well, hence the patient was extubated to nasal cannula. I will go ahead in the meantime today switch his IV antibiotics to oral antibiotics. Continue to correct his hypernatremia. And free water will be allowed liberally. On 04/27/2016, patient has been off mechanical ventilation for the last 24 hours , tolerated the extubation well, continues to have mild congestive changes on the chest x-ray hence Lasix was given. His right groin area will be addressed by surgery and cardiology and I have recommended keeping the patient in the ICU. Patient was placed on amiodarone earlier this morning because of A. fib and RVR. Patient remains nothing by mouth because of failed the swallow evaluation. 2 coronary artery disease, 3 CHF with a preop ejection fraction of 20-25%, mild congestive heart failure noted on the chest x-ray, and the patient will receive Lasix 20 mg IV push 1 today. 4 questionable right atrial thrombus 5 scoliosis of the thoracic spine 6 benign prostatic hypertrophy 7 hyperlipidemia. 8 osteoarthritis 9 acute kidney injury, improved 10 obesity 11 postoperative anemia the patient was given a unit of packed RBC and the current hemoglobin is 8.0 Plan Continue supportive care measures, keep the patient in the ICU, will continue to follow. Continue incentive spirometry, bronchodilators, and not quite ready to be transferred out of the ICU at Time with Patient: Greater than 30
--- NOTE | 2016-04-27 15:12 | ECHOF ---
Referral Reason:Chest pain and cardiomyopathy MEASUREMENTS -------- HEIGHT: 177.8 cm WEIGHT: 127.0 kg BP: 141/54 RVIDd: 3.2 cm (< 3.3) IVSd: 1.5 cm (0.6 - 1.1) LVIDd: 4.5 cm (3.9 - 5.3) LVPWd: 1.0 cm (0.6 - 1.1) IVSs: 2.1 cm LVIDs: 3.9 cm LVPWs: 1.1 cm Ao Diam: 3.4 cm (2.0 - 3.7) AV maxP.39 mmHg AV meanP.87 mmHg FINDINGS -------- Atrial fibrillation. This was a technically difficult study with suboptimal views. The left ventricular size is normal. There is moderate concentric left ventricular hypertrophy. Overall left ventricular systolic function is severely impaired with, an EF between 25 - 30 %. Mid anterior LV wall motion is akinetic. Mid lateral LV wall motion is akinetic. Mid anteroseptal LV wall motion is akinetic. Apical anterior LV wall motion is akinetic. Apical lateral LV wall motion is akinetic. Apical inferior LV wall motion is akinetic. Apical septum LV wall motion is hypokinetic. The RV was not well visualized. The left atrium was not well visualized. The right atrium was not well visualized. 1.5mg of Definity was utilized for enhancement of images The aortic valve was not well visualized. Peak/mean gradient across the Aortic Valve is 18.39mmHg / 9.87mmHg. Normally functioning bioprosthetic valve. Mild mitral annular calcification present. The tricuspid valve was not well visualized. The pulmonic valve was not well visualized. The aortic root size is normal. There is no pericardial effusion. CONCLUSIONS -------- 1. Atrial fibrillation. 2. Apical inferior LV wall motion is akinetic. 3. Apical septum LV wall motion is hypokinetic. 4. The RV was not well visualized. 5. The left atrium was not well visualized. 6. The right atrium was not well visualized. 7. 1.5mg of Definity was utilized for enhancement of images 8. The aortic valve was not well visualized. 9. Peak/mean gradient across the Aortic Valve is 18.39mmHg / 9.87mmHg. 10. Mild mitral annular calcification present. 11. The tricuspid valve was not well visualized. 12. This was a technically difficult study with suboptimal views. 13. The pulmonic valve was not well visualized. 14. The aortic root size is normal. 15. There is no pericardial effusion. 16. There is moderate concentric left ventricular hypertrophy. 17. Overall left ventricular systolic function is severely impaired with, an EF between 25 - 30 %. 18. Mid anterior LV wall motion is akinetic. 19. Mid lateral LV wall motion is akinetic. 20. Mid anteroseptal LV wall motion is akinetic. 21. Apical anterior LV wall motion is akinetic. 22. Apical lateral LV wall motion is akinetic. WORKING SUPERVISOR: Yamile Stephens RDCS
[2016-04-27 16:25] LABS: Glucose,Whole Blood 122 mg/dL (75-99)
--- NOTE | 2016-04-27 18:12 | PN ---
Mr. Mccracken is a 76-year-old male who underwent coronary bypass grafting, had a complicated postoperative course. He is extubated at this time. He went into atrial fibrillation at this time. This morning he denies any symptoms of chest pain. He is feeling tired, but otherwise he is feeling better. He denies any nausea. At the time of his cardiac catheterization he was found to have triple vessel coronary artery disease. His ventricular response is relatively stable at this time. He continues to be on Lopressor 25 mg twice a day. He is receiving amiodarone. He is on aspirin, Lipitor 40 mg daily, Plavix 75 mg daily. PHYSICAL EXAMINATION: Blood pressure 132/60 with a heart rate in the low 100s. LUNGS: With decreased air exchange, no wheezes. HEART: Irregular, regular S1, S2. No S3, no rub. ABDOMEN: Soft and nontender. EXTREMITIES: With 1+ edema bilaterally. IMPRESSION: 1. Status post coronary artery bypass grafting. 2. Prolonged intubation, extubated at this time, stable. 3. Hyperlipidemia. 4. Cardiomyopathy. 5. Atrial fibrillation. RECOMMENDATIONS: From the cardiac standpoint, I will increase the dose of his beta racheal, I will start him on statin. If he remains in atrial fibrillation he will be a candidate for anticoagulation. I will follow his respiratory status closely and depending on that, further recommendation will be made.
[2016-04-27 20:10] LABS: Glucose,Whole Blood 119 mg/dL (75-99)
[2016-04-27 23:22] LABS: Glucose,Whole Blood 123 mg/dL (75-99)
[2016-04-28] MEDS: HYDROcodone/APAP 5-325MG 1 EACH TAB PO PRN (04:05)
[2016-04-28] MEDS: DEXTROSE 5%-0.45% NACL 1,000 ML IV SCH (04:05)
[2016-04-28] MEDS: INSULIN LISPRO (humaLOG) 300 UNIT/3 ML VIAL SQ SCH ×5 (04:09→20:39)
[2016-04-28 04:10] LABS: Glucose,Whole Blood 115 mg/dL (75-99)
[2016-04-28 04:50] LABS: Basophils # (A) 0.1 k/uL (0-0.2); Basophils % (A) 1 %; CH 29.5; CHCM 31.1; Eosinophils # (A) 0.2 k/uL (0-0.7); Eosinophils % (A) 2 %; HCT 27.5 % (39.0-53.0); HGB 8.5 gm/dL (13.0-17.5); Hypochromasia Moderate; Luc # (Auto) 0.26; Luc % (Auto) 3; Lymphocytes # (A) 1.2 k/uL (1.0-4.8); Lymphocytes % (A) 11 %; MCH 29.7 pg (25.0-35.0); MCHC 31.1 g/dL (31.0-37.0); MCV 95.5 fL (80.0-100.0); Mean Platelet Volume 7.3; Monocytes # (A) 0.5 k/uL (0-1.0); Monocytes % (A) 5 %; Neutrophils # (A) 8.3 k/uL (1.3-7.7); Neutrophils % (A) 79 %; RBC 2.87 m/uL (4.30-5.90); RDW 14.8 % (11.5-15.5); WBC 10.5 k/uL (3.8-10.6); WBC (Perox) 11.51
[2016-04-28 05:11] LABS: Anion Gap 7 mmol/L; Blood Urea Nitrogen 33 mg/dL (9-20); Calcium 8.3 mg/dL (8.4-10.2); Carbon Dioxide 28 mmol/L (22-30); Chloride 115 mmol/L (98-107); Glucose 115 mg/dL (74-99); Magnesium 2.5 mg/dL (1.6-2.3); Non-African American GFR(MDRD) >60 (>60 ml/min/1.73 sqM); Phosphorous 2.9 mg/dL (2.5-4.5); Potassium 3.9 mmol/L (3.5-5.1); Sodium 150 mmol/L (137-145)
[2016-04-28] MEDS: POTASSIUM CHLORIDE 10 MEQ in WATER FOR INJECTION 1 100ML.BAG IVPB SCH ×2 (06:29→08:39)
--- NOTE | 2016-04-28 07:37 | XR ---
EXAMINATION TYPE: XR chest 1V portable DATE OF EXAM: 04/28/2016 6:06 AM Comparison: 04/27/2016 Clinical History: 76-year-old old male postop cardiac surgery Findings: Median sternotomy wires are present. Heart remains moderately enlarged with diffuse interstitial prom inence. Left perihilar opacity slightly increased. Continued bibasilar opacities. Impression: 1. Correlate for CHF and continued pulmonary vascular congestion with slight worsening. 2. Continued small pleural effusions with adjacent atelectasis and/or consolidation.
[2016-04-28] MEDS: IPRATROPIUM-ALBUTEROL 3 ML NEB INHALATION SCH ×4 (07:55→19:19)
[2016-04-28] MEDS: ACETYLCYSTEINE 800 MG/4 ML VIAL INHALATION SCH ×4 (07:55→19:19)
[2016-04-28] MEDS: ASPIRIN 81 MG CHEW PO SCH (08:41)
[2016-04-28] MEDS: ATORVASTATIN 40 MG TAB PO SCH (08:41)
[2016-04-28] MEDS: AMOXIC-POT CLAV 875-125MG 1 EACH TAB PO SCH ×2 (08:41→20:49)
[2016-04-28] MEDS: HEPARIN SODIUM,PORCINE 5,000 UNIT/ML 1 ML VIAL SQ SCH ×2 (08:41→16:02)
[2016-04-28] MEDS: CLOPIDOGREL 75 MG TAB PO SCH (08:42)
[2016-04-28] MEDS: METOPROLOL TARTRATE 25 MG TAB PO SCH ×3 (08:42→20:49)
[2016-04-28] MEDS: CHLORHEXIDINE GLUCONATE 15 ML CUP MUCOUS MEM SCH (08:42)
[2016-04-28] MEDS: BACITRACIN 500 UNIT/GM OINT 28.4 GM TUBE TOPICAL SCH ×2 (08:42→20:49)
[2016-04-28] MEDS: DOCUSATE ORAL SOLN 100 MG/10 ML CUP PO SCH (08:42)
[2016-04-28] MEDS: PANTOPRAZOLE 40 MG/10 ML VIAL IVP SCH (08:43)
[2016-04-28 09:57] LABS: Glucose,Whole Blood 107 mg/dL (75-99)
[2016-04-28 12:53] LABS: Glucose,Whole Blood 100 mg/dL (75-99)
--- NOTE | 2016-04-28 13:47 | P.PN ---
Subjective Principal diagnosis: Triple-vessel coronary artery disease, severe LV dysfunction. Right lower lobe collapse This 76-year-old male patient , post 3 vessel bypass surgery including PHAM to LAD saphenous vein graft to diagonal and ramus branches and aortic valve replacement was currently back in the intensive care unit and the patient is postop day 1. Note that the patient was taken back to the operating room after he arrived the ICU. The patient was having bleeding from his mediastinal chest tubes. Further examination was done and the bleeding site was identified and the local hemostasis was achieved and following that the patient was brought back to the intensive care unit. Overnight, the patient remains on a mechanical ventilator and he remains sedated with Diprivan. He was gradually taken off the vasopressin drip and the Gal-Synephrine drip and both are discontinued. Currently is on 8 mics of norepinephrine infusion and Primacor. He is hemodynamically stable. He remains on a mechanical ventilator and his series of chest x-rays that was done postop showed a partial atelectasis of the right upper lobe which subsequently improved. Morning's chest x-ray showed adequate expansion of the right upper lobe area and there is probably some small better pleural effusion. ET tube is in a good location. The patient has a [place] catheter in place. There aren't pleural and mediastinal chest tubes are all in place. On the mechanical ventilator, the patient is on a assist-control mode at the rate of 20, tidal volume of 650, FiO2 of 80% and PEEP of 12. He is having some air leak within the mediastinal chest tube. Output however has improved and there is evidence of any acute bleeding. Hemoglobin is stable for now. Patient was reevaluated today on 04/24/2016, chest x-ray continues to show steady improvement, and slightly better compared to chest x-ray yesterday. Patient was given a short weaning trial on pressure support of 8 and CPAP, and according to the nurses he became quite restless, blood pressure was extremely high, and the patient was noted to be working hard to breathe. His work of breathing was noted to be significant, hence no more than half hour trial was given. Patient was placed back on assist control mode. Patient is postoperative day #6, triple vessel coronary artery bypass grafting and aortic valve replacement using a 25 mm pericardial bioprosthesis. Patient also required reexploration for postoperative bleeding. He is still on mechanical ventilation today, placed back on propofol at 20 mcg/kg/m, and he remains on Primacor. At 0.15 mcg/kg/m. Patient is receiving Lasix intermittently. ABG today showed a pO2 of 93 pCO2 of 40 pH of 7.45. Basic metabolic profile is relatively unremarkable, BUN is 37 creatinine is 1.1 Patient was reevaluated on 04/25/2016, patient was taken off propofol, and he was given a trial of weaning on pressure support of 12 which I will be cutting down the pressure support of 8, I doubt if the patient will fully wean and extubate today, and this is mostly because of his significant secretions in the endotracheal tube. Chest x-ray is basically about the same, I given a dose of Lasix 20 mg IV push earlier this morning. Off propofol, patient was noted to be slightly confused, but able to follow simple instructions like wiggling toes , squeezing hands, closing eyes. I believe the patient is neurologically intact , and his neurological status will improve with holding sedation longer period the only concern I have today is the fact that the patient has significant amount of secretions in the endotracheal tube and he is being suctioned frequently. Otherwise I would have extubated the patient today after a trial of pressure support of 8 and CPAP. ABG today showed a pO2 of 80 pCO2 of 36 pH of 7.48 and this was on 40% FiO2 and PEEP of 5 his electrolytes and renal profile were reviewed, sodium is a bit elevated, however the patient is receiving free water flushes via nasogastric tube and that will improve his hypernatremia. Patient was reevaluated today on 04/26/2016, he was weaned while I was at the bedside, placed initially on pressure support of 8 and CPAP, and patient tolerated the process quite well. Hence patient was extubated to a nasal cannula uneventfully. Chest x-ray is a bit improved compared to his x-ray in the last few days. His labs were noted about the same including a CBC with a hemoglobin of 8 and the [place] count of 8.8 CPAP ABG showed a pO2 of 99 pCO2 of 34 pH of 7.50. And this was on 40% FiO2 with pressure support of 8 and CPAP for about 45 minutes. His sodium remains high, hence I will increase the free water fluid boluses in the nasogastric tube. And we will change the IV fluid to D5W. Patient was reevaluated today, he tolerated the extubation well, and he remains on 5 L nasal cannula. Patient has good cough, he is able to clear his secretions, however he went last night into atrial fibrillation with RVR, and he was given IV amiodarone. His Lopressor dose will be increased, apparently he failed the swallow test, and he remains nothing by mouth for now. I did give the patient a dose of Lasix 20 mg IV push because of his slightly abnormal chest x-ray suggestive of mild congestive changes. Labs were reviewed, sodium remains a bit high at 149 renal profile is relatively normal CBC showed a hemoglobin of 8.4. Patient was reevaluated today on 04/28/2016, seems to be doing relatively well in spite of his multiple medical issues. Remains on nasal cannula, apparently tolerated the extubation well over the last 2 days now. Chest x-ray is showing some atelectasis at the right lung base, and some component of mild failure. His sodium remains elevated at 150 and that is being corrected by fluid restriction. Hemoglobin is 8.5, WBC count is 10.5. Renal profile is about the same with a BUN of 33 creatinine of 0.90. His medications were all reviewed. Patient remains on Augmentin Objective - Vital Signs Vital signs: Vital Signs Temp 99.0 F 04/28/16 12:00 Pulse 86 04/28/16 13:00 Resp 30 H 04/28/16 13:00 BP 143/72 04/28/16 06:00 Pulse Ox 94 L 04/28/16 13:00 Intake & Output 04/27/16 04/28/16 04/28/16 18:59 06:59 18:59 Intake Total 636 739 115 Output Total 1320 770 315 Balance -684 -31 -200 Weight 127.6 kg 128.9 kg Intake: IV 636 739 115 0.9NS Pressure Bag 36 39 15 Dextrose 5%-0.45% NaCl 1, 600 600 000 ml @ 50 mls/hr IV . Q20H ADAM Rx#:[id number] Potassium Chloride 10 meq 100 100 In Water For Injection 1 100ml.bag @ 100 mls/hr IVPB Q1H ADAM Rx#: [id number] Output: Urine 1320 770 315 Other: Voiding Method Indwelling Catheter Indwelling Catheter Indwelling Catheter ABP, PAP, CO, CI - Last Documented Arterial Blood Pressure 155/58 Pulmonary Artery Pressure 31/25 Cardiac Output 7 Cardiac Index 3.0 - Exam Physical Exam: Revealed a 76-year-old white male on mechanical ventilation, awake, follows simple instructions, no confusion today. HEENT: Neck supple no neck masses, endotracheal tube is intact. Chest: [Crackles and rhonchi at the bases] Cardiac Exam: [Normal S1 and S2, no S3 gallop, no murmur.] Abdomen: [Soft, nontender, no megaly, no rebound, no guarding, normal bowel sounds.] Extremities: [No clubbing, no edema, no cyanosis.] I examined the laceration in the right groin area, and I suggested further evaluation of this area by cardiology and by thoracic surgery since it seems to be related to his previous cardiac catheterization and catheter placement. Neurological Exam: Arousable, follows simple instructions, less confused today and follows instructions quite well. - Labs CBC & Chem 7: 04/28/16 04:10 04/28/16 04:10 Labs: Abnormal Lab Results - Last 24 Hours (Table) 04/27/16 04/27/16 04/27/16 Range/Units 16:23 20:09 23:20 RBC (4.30-5.90) m/uL Hgb (13.0-17.5) gm/dL Hct (39.0-53.0) % Neutrophils # (1.3-7.7) k/uL Sodium (137-145) mmol/L Chloride (98-107) mmol/L BUN (9-20) mg/dL Glucose (74-99) mg/dL POC Glucose (mg/dL) 122 H 119 H 123 H (75-99) mg/dL Calcium (8.4-10.2) mg/dL Magnesium (1.6-2.3) mg/dL 04/28/16 04/28/16 04/28/16 Range/Units 04:09 04:10 04:10 RBC 2.87 L (4.30-5.90) m/uL Hgb 8.5 L (13.0-17.5) gm/dL Hct 27.5 L (39.0-53.0) % Neutrophils # 8.3 H (1.3-7.7) k/uL Sodium 150 H (137-145) mmol/L Chloride 115 H (98-107) mmol/L BUN 33 H (9-20) mg/dL Glucose 115 H (74-99) mg/dL POC Glucose (mg/dL) 115 H (75-99) mg/dL Calcium 8.3 L (8.4-10.2) mg/dL Magnesium 2.5 H (1.6-2.3) mg/dL 04/28/16 04/28/16 Range/Units 09:55 12:51 RBC (4.30-5.90) m/uL Hgb (13.0-17.5) gm/dL Hct (39.0-53.0) % Neutrophils # (1.3-7.7) k/uL Sodium (137-145) mmol/L Chloride (98-107) mmol/L BUN (9-20) mg/dL Glucose (74-99) mg/dL POC Glucose (mg/dL) 107 H 100 H (75-99) mg/dL Calcium (8.4-10.2) mg/dL Magnesium (1.6-2.3) mg/dL Microbiology - Last 24 Hours (Table) 04/26/16 22:10 Gram Stain - Preliminary Groin Wound Culture - Preliminary 04/26/16 22:10 Anaerobic Culture - Preliminary Groin Assessment and Plan Plan: 1 POD: #6, triple vessel coronary artery bypass grafting using the left internal mammary artery to the left anterior descending coronary artery, a reverse greater saphenous vein graft from the aorta to the early arising posterior descending coronary artery, a reverse greater saphenous vein graft from the aorta to the intramyocardial ramus intermedius artery proximally. 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 Intraoperative transesophageal echocardiogram and Epi-aortic scanning. Endoscopic vein harvesting of the right greater saphenous vein. #6 Reexploration for postoperative bleeding. On 04/27/2016, patient has been off mechanical ventilation for the last 24 hours , tolerated the extubation well, continues to have mild congestive changes on the chest x-ray hence Lasix was given. His right groin area will be addressed by surgery and cardiology and I have recommended keeping the patient in the ICU. Patient was placed on amiodarone earlier this morning because of A. fib and RVR. Patient remains nothing by mouth because of failed the swallow evaluation. On 04/28/2016, patient tolerated extubation well over the last 2 days, doing relatively well, however continues to do poorly with incentive spirometry, patient is to become more active, more ambulation need to be addressed, and in the meantime we'll continue bronchodilators, incentive spirometry, and hopefully ambulate in the hallway if possible in the next 24-48 hours. 2 coronary artery disease, 3 CHF with a preop ejection fraction of 20-25%, mild congestive heart failure noted on the chest x-ray, and the patient will receive Lasix 20 mg IV push 1 today. 4 questionable right atrial thrombus 5 scoliosis of the thoracic spine 6 benign prostatic hypertrophy 7 hyperlipidemia. 8 osteoarthritis 9 acute kidney injury, improved 10 obesity 11 postoperative anemia the patient was given a unit of packed RBC and the current hemoglobin is 8.0 Plan Continue supportive care measures, keep the patient in the ICU, will continue to follow. Continue incentive spirometry, bronchodilators, and not quite ready to be transferred out of the ICU at Time with Patient: Less than 30
--- NOTE | 2016-04-28 13:56 | P.PN ---
Subjective Principal diagnosis: Status post aortic valve replacement and coronary artery bypass The patient has no new complaints. He was extubated 2 days ago and is currently on nasal cannula. He is currently receiving clear liquids as he did fail his swallow test yesterday. His pain has been controlled. Objective - Vital Signs Vital signs: Vital Signs Temp 99.0 F 04/28/16 12:00 Pulse 86 04/28/16 13:00 Resp 30 H 04/28/16 13:00 BP 143/72 04/28/16 06:00 Pulse Ox 94 L 04/28/16 13:00 Intake & Output 04/27/16 04/28/16 04/28/16 18:59 06:59 18:59 Intake Total 636 739 115 Output Total 1320 770 315 Balance -684 -31 -200 Weight 127.6 kg 128.9 kg Intake: IV 636 739 115 0.9NS Pressure Bag 36 39 15 Dextrose 5%-0.45% NaCl 1, 600 600 000 ml @ 50 mls/hr IV . Q20H ADAM Rx#:[id number] Potassium Chloride 10 meq 100 100 In Water For Injection 1 100ml.bag @ 100 mls/hr IVPB Q1H ADAM Rx#: [id number] Output: Urine 1320 770 315 Other: Voiding Method Indwelling Catheter Indwelling Catheter Indwelling Catheter ABP, PAP, CO, CI - Last Documented Arterial Blood Pressure 155/58 Pulmonary Artery Pressure 31/25 Cardiac Output 7 Cardiac Index 3.0 - Constitutional General appearance: Present: average body habitus, cooperative - Respiratory Respiratory: bilateral: rales - Cardiovascular Rhythm: irregularly irregular - Neurologic Neurologic: Present: CNII-XII intact - Psychiatric Psychiatric: Present: A&O x's 3 - Labs CBC & Chem 7: 04/28/16 04:10 04/28/16 04:10 Labs: Abnormal Lab Results - Last 24 Hours (Table) 04/27/16 04/27/16 04/27/16 Range/Units 16:23 20:09 23:20 RBC (4.30-5.90) m/uL Hgb (13.0-17.5) gm/dL Hct (39.0-53.0) % Neutrophils # (1.3-7.7) k/uL Sodium (137-145) mmol/L Chloride (98-107) mmol/L BUN (9-20) mg/dL Glucose (74-99) mg/dL POC Glucose (mg/dL) 122 H 119 H 123 H (75-99) mg/dL Calcium (8.4-10.2) mg/dL Magnesium (1.6-2.3) mg/dL 04/28/16 04/28/16 04/28/16 Range/Units 04:09 04:10 04:10 RBC 2.87 L (4.30-5.90) m/uL Hgb 8.5 L (13.0-17.5) gm/dL Hct 27.5 L (39.0-53.0) % Neutrophils # 8.3 H (1.3-7.7) k/uL Sodium 150 H (137-145) mmol/L Chloride 115 H (98-107) mmol/L BUN 33 H (9-20) mg/dL Glucose 115 H (74-99) mg/dL POC Glucose (mg/dL) 115 H (75-99) mg/dL Calcium 8.3 L (8.4-10.2) mg/dL Magnesium 2.5 H (1.6-2.3) mg/dL 04/28/16 04/28/16 Range/Units 09:55 12:51 RBC (4.30-5.90) m/uL Hgb (13.0-17.5) gm/dL Hct (39.0-53.0) % Neutrophils # (1.3-7.7) k/uL Sodium (137-145) mmol/L Chloride (98-107) mmol/L BUN (9-20) mg/dL Glucose (74-99) mg/dL POC Glucose (mg/dL) 107 H 100 H (75-99) mg/dL Calcium (8.4-10.2) mg/dL Magnesium (1.6-2.3) mg/dL Microbiology - Last 24 Hours (Table) 04/26/16 22:10 Gram Stain - Preliminary Groin Wound Culture - Preliminary 04/26/16 22:10 Anaerobic Culture - Preliminary Groin Assessment and Plan Plan: The patient was extubated 2 days ago and is currently on nasal cannula. His cough is improving and he is able to clear his own secretions. We will continue with bronchodilators and incentive spirometry. He remains in rate controlled atrial fibrillation. He is currently on a beta racheal and was loaded with amiodarone yesterday. He is tolerating clear liquids and is scheduled to undergo a video swallow test tomorrow. We will have physical therapy work with him. We will try to get him out of bed today. Time with Patient: Less than 30
[2016-04-28] MEDS: LISINOPRIL 2.5 MG TAB PO SCH (16:01)
[2016-04-28 16:07] LABS: Glucose,Whole Blood 100 mg/dL (75-99)
--- NOTE | 2016-04-28 18:03 | PN ---
Mr. Mccracken is a 76-year-old male, status post coronary artery bypass grafting and aortic valve replacement. He is feeling stronger today. His breathing is better. He is back in sinus mechanism. He denies any symptoms of chest pain. He denies any dizziness. Hemodynamically, he is stable. He is on no pressors. He has sat on the edge of the bed earlier. He had an echocardiogram performed yesterday that showed a severely impaired left ventricular systolic function with a normal function of his bioprosthetic aortic valve. He continues to be at this time on aspirin once a day, Lipitor 40 mg daily, Plavix 75 mg daily, metoprolol tartrate 25 mg 3 times a day. PHYSICAL EXAMINATION: Blood pressure 150/40 with a heart in the 80s. LUNGS: With mild crackles at the bases. HEART: Regular rate and rhythm. S1, S2, no S3, with systolic murmur and no diastolic murmur. ABDOMEN: Soft, nontender. EXTREMITIES: With mild edema. Lab data revealed BUN, creatinine 33 and 0.9. His potassium 3.9. Hemoglobin of 8.5. IMPRESSION: 1. Status post coronary artery bypass grafting and aortic valve replacement. 2. Severe cardiomyopathy. 3. Paroxysmal atrial fibrillation, remains in sinus mechanism. 4. Hyperlipidemia. RECOMMENDATIONS: From the cardiac standpoint, I will start him on low dose JESSE inhibitor because of his severe cardiomyopathy, continue his medical regimen. Increase his level of activity gradually and follow his blood pressure and if his pressure and renal function are stable, then the medications can be further adjusted.
[2016-04-28 20:41] LABS: Glucose,Whole Blood 95 mg/dL (75-99)
[2016-04-29 00:42] LABS: Glucose,Whole Blood 102 mg/dL (75-99)
[2016-04-29] MEDS: INSULIN LISPRO (humaLOG) 300 UNIT/3 ML VIAL SQ SCH ×6 (00:42→23:48)
[2016-04-29] MEDS: DEXTROSE 5%-0.45% NACL 1,000 ML IV SCH (01:24)
[2016-04-29] MEDS: METOPROLOL TARTRATE 50 MG TAB PO SCH ×4 (01:30→21:41)
[2016-04-29] MEDS: HEPARIN SODIUM,PORCINE 5,000 UNIT/ML 1 ML VIAL SQ SCH ×4 (01:30→23:52)
[2016-04-29 04:27] LABS: Glucose,Whole Blood 108 mg/dL (75-99)
[2016-04-29 04:57] LABS: Anion Gap 10 mmol/L; Blood Urea Nitrogen 32 mg/dL (9-20); Calcium 8.3 mg/dL (8.4-10.2); Carbon Dioxide 28 mmol/L (22-30); Chloride 115 mmol/L (98-107); Glucose 104 mg/dL (74-99); Magnesium 2.5 mg/dL (1.6-2.3); Non-African American GFR(MDRD) >60 (>60 ml/min/1.73 sqM); Phosphorous 3.2 mg/dL (2.5-4.5); Potassium 3.8 mmol/L (3.5-5.1); Sodium 153 mmol/L (137-145)
[2016-04-29 05:02] LABS: Basophils # (A) 0.1 k/uL (0-0.2); Basophils % (A) 1 %; CH 29.6; CHCM 31.1; Eosinophils # (A) 0.1 k/uL (0-0.7); Eosinophils % (A) 1 %; HGB 8.5 gm/dL (13.0-17.5); Hypochromasia Moderate; Luc # (Auto) 0.18; Luc % (Auto) 2; Lymphocytes # (A) 1.1 k/uL (1.0-4.8); Lymphocytes % (A) 10 %; MCH 28.9 pg (25.0-35.0); MCHC 30.1 g/dL (31.0-37.0); MCV 95.9 fL (80.0-100.0); Monocytes # (A) 0.6 k/uL (0-1.0); Monocytes % (A) 6 %; Neutrophils # (A) 8.9 k/uL (1.3-7.7); Neutrophils % (A) 82 %; RBC 2.92 m/uL (4.30-5.90); RDW 15.1 % (11.5-15.5); WBC 10.9 k/uL (3.8-10.6); WBC (Perox) 10.64
[2016-04-29] MEDS: ACETYLCYSTEINE 800 MG/4 ML VIAL INHALATION SCH ×4 (07:26→19:37)
[2016-04-29] MEDS: IPRATROPIUM-ALBUTEROL 3 ML NEB INHALATION SCH ×4 (07:26→19:37)
[2016-04-29 07:46] LABS: Glucose,Whole Blood 102 mg/dL (75-99)
[2016-04-29] MEDS: POTASSIUM CHLORIDE 10 MEQ in WATER FOR INJECTION 1 100ML.BAG IVPB SCH ×2 (08:25→10:24)
[2016-04-29] MEDS: AMOXIC-POT CLAV 875-125MG 1 EACH TAB PO SCH ×2 (08:26→21:41)
[2016-04-29] MEDS: CLOPIDOGREL 75 MG TAB PO SCH (08:26)
[2016-04-29] MEDS: BACITRACIN 500 UNIT/GM OINT 28.4 GM TUBE TOPICAL SCH ×2 (08:26→21:41)
[2016-04-29] MEDS: ATORVASTATIN 40 MG TAB PO SCH (08:26)
[2016-04-29] MEDS: ASPIRIN 81 MG CHEW PO SCH (08:26)
[2016-04-29] MEDS: DOCUSATE ORAL SOLN 100 MG/10 ML CUP PO SCH ×2 (08:27→08:42)
[2016-04-29] MEDS: LISINOPRIL 2.5 MG TAB PO SCH (08:27)
[2016-04-29] MEDS: PANTOPRAZOLE 40 MG/10 ML VIAL IVP SCH (08:28)
--- NOTE | 2016-04-29 09:40 | P.PN ---
<Hu Holly - Last Filed: 04/29/16 09:16> Progress Note - Text CV Surgery Nursing POD: #11, triple-vessel coronary artery bypass grafting utilizing left internal mammary artery to left anterior descending coronary artery and reverse saphenous vein grafts to the posterior descending coronary artery and ramus intermedius coronary artery. Aortic valve replacement using a 25 mm pericardial bioprosthesis. Endoscopic vein harvesting of the right greater saphenous vein. Intraoperative transesophageal echocardiogram and epi-aortic ultrasonography. #11, reexploration for postoperative bleeding. Patient awake and much more alert, no distress noted, no specific complaints. Vital Signs: Afebrile, T-max 99F Vital Signs - 24 hr 04/28/16 04/28/16 04/28/16 10:00 11:00 12:00 Temperature 99.0 F Pulse Rate 79 79 83 Respiratory 19 24 31 H Rate O2 Sat by Pulse 98 94 L 96 Oximetry 04/28/16 04/28/16 04/28/16 12:22 12:35 13:00 Temperature Pulse Rate 85 86 86 Respiratory 22 30 H 30 H Rate O2 Sat by Pulse 94 L Oximetry 04/28/16 04/28/16 04/28/16 14:00 15:00 16:00 Temperature 98.2 F Pulse Rate 87 93 85 Respiratory 22 19 27 H Rate O2 Sat by Pulse 93 L 93 L 90 L Oximetry 04/28/16 04/28/16 04/28/16 16:30 17:00 18:00 Temperature Pulse Rate 88 83 84 Respiratory 20 22 Rate O2 Sat by Pulse 95 95 Oximetry 04/28/16 04/28/16 04/28/16 19:00 19:19 19:30 Temperature Pulse Rate 82 111 H 120 H Respiratory 21 Rate O2 Sat by Pulse 97 Oximetry 04/28/16 04/28/16 04/28/16 20:00 21:00 22:00 Temperature 98.6 F Pulse Rate 129 H 139 H 106 H Respiratory 28 H 22 28 H Rate O2 Sat by Pulse 95 95 95 Oximetry 04/28/16 04/29/16 04/29/16 23:00 00:00 01:00 Temperature 98.8 F Pulse Rate 122 H 126 H 131 H Respiratory 28 H 25 H 23 Rate O2 Sat by Pulse 97 96 91 L Oximetry 04/29/16 04/29/16 04/29/16 02:00 03:00 04:00 Temperature 98.1 F Pulse Rate 119 H 83 77 Respiratory 28 H 25 H 33 H Rate O2 Sat by Pulse 98 92 L 94 L Oximetry 04/29/16 04/29/16 04/29/16 05:00 06:00 07:00 Temperature Pulse Rate 108 H 146 H 129 H Respiratory 24 33 H 18 Rate O2 Sat by Pulse 92 L 92 L 92 L Oximetry 04/29/16 04/29/16 04/29/16 07:28 07:30 07:43 Temperature Pulse Rate 125 H 125 H Respiratory Rate O2 Sat by Pulse 94 L Oximetry ABP, PAP, CO, CI - Last 8 Hours Arterial Blood Pressure 131/51 Arterial Blood Pressure 119/64 Arterial Blood Pressure 135/68 Arterial Blood Pressure 109/68 Arterial Blood Pressure 129/70 Arterial Blood Pressure 129/77 Labs: Short CBC 04/29/16 Range/Units 04:25 WBC 10.9 H (3.8-10.6) k/uL Hgb 8.5 L (13.0-17.5) gm/dL Hct 28.0 L (39.0-53.0) % Plt Count 275 (150-450) k/uL Neutrophils # 8.9 H (1.3-7.7) k/uL BMP 04/29/16 04:25 Sodium 153 H Potassium 3.8 Chloride 115 H Carbon Dioxide 28 BUN 32 H Creatinine 0.90 Glucose 104 H Calcium 8.3 L Lungs: Respirations are even and nonlabored, breath sounds with bibasilar crackles O2 sat: 94% on 6 L of oxygen delivered via nasal cannula Heart: S1S2, bedside telemetry shows atrial fibrillation with a rapid ventricular response of about 120 bpm Sternum: stable, chest incision clean with dressing clean and dry. Right leg harvest site clean and dry. Abdomen: Soft, Positive bowel sounds present in all 4 quadrants. Positive bowel movement. CBGs: 95-108 mg/dL U/O: Good urine output via Nava catheter to dependent drainage. Active Medications Acetaminophen (Tylenol Tab) 650 mg PO Q6HR PRN PRN Reason: Fever and/ or Pain Last Admin: 04/26/16 20:43 Dose: 650 mg Acetaminophen/Hydrocodone Bitart ([place] 5-325) 2 each PO Q4HR PRN PRN Reason: Severe Pain Last Admin: 04/25/16 12:16 Dose: 2 each Acetaminophen/Hydrocodone Bitart ([place] 5-325) 1 each PO Q4HR PRN PRN Reason: Moderate Pain Last Admin: 04/28/16 04:05 Dose: 1 each Acetylcysteine (Mucomyst) 200 mg INHALATION RT-QID [facility] Last Admin: 04/29/16 07:26 Dose: 200 mg Albuterol/Ipratropium (Duoneb 0.5 Mg-3 Mg/3 Ml Soln) 3 ml INHALATION RT-Q2H PRN PRN Reason: Shortness Of Breath Or Wheezing Albuterol/Ipratropium (Duoneb 0.5 Mg-3 Mg/3 Ml Soln) 3 ml INHALATION RT-QID [facility] Last Admin: 04/29/16 07:26 Dose: 3 ml Amoxicillin/Clavulanate Potassium (Augmentin 875-125) 1 each PO Q12HR [facility] Last Admin: 04/29/16 08:26 Dose: 1 each Aspirin (Aspirin) 81 mg PO DAILY [facility] Last Admin: 04/29/16 08:26 Dose: 81 mg Atorvastatin Calcium (Lipitor) 40 mg PO DAILY [facility] Last Admin: 04/29/16 08:26 Dose: 40 mg Bacitracin (Bacitracin Oint) 1 applic TOPICAL BID [facility] Last Admin: 04/29/16 08:26 Dose: 1 applic Bisacodyl (Dulcolax) 10 mg RECTAL DAILY PRN PRN Reason: Constipation Last Admin: 04/25/16 12:41 Dose: 10 mg Clopidogrel Bisulfate (Plavix) 75 mg PO DAILY [facility] Last Admin: 04/29/16 08:26 Dose: 75 mg Docusate Sodium (Colace Oral Soln) 100 mg PO DAILY [facility] Last Admin: 04/29/16 08:42 Dose: Not Given Heparin Sodium (Porcine) (Heparin) 5,000 unit SQ Q8HR [facility] Last Admin: 04/29/16 08:25 Dose: 5,000 unit Dextrose/Sodium Chloride (Dextrose 5%-1/2ns Iv Soln) 1,000 mls @ 50 mls/hr IV .Q20H [facility] Last Admin: 04/29/16 01:24 Dose: Not Given Insulin Human Lispro (Humalog) 0 unit SQ Q4HR [facility] PRN Reason: Protocol Last Admin: 04/29/16 08:25 Dose: Not Given Lisinopril (Zestril) 2.5 mg PO DAILY [facility] Last Admin: 04/29/16 08:27 Dose: 2.5 mg Magnesium Hydroxide (Milk Of Magnesia) 2,400 mg PO BID PRN PRN Reason: Constipation Last Admin: 04/24/16 20:33 Dose: 2,400 mg Metoprolol Tartrate (Lopressor) 50 mg PO TID [facility] Last Admin: 04/29/16 08:27 Dose: 50 mg Miscellaneous Information (Magnesium Per Protocol) 1 each MISCELLANE DAILY PRN ; Protocol PRN Reason: Per Protocol Miscellaneous Information (Phosphorus Per Protocol) 1 each MISCELLANE DAILY PRN ; Protocol PRN Reason: Per Protocol Miscellaneous Information (Potassium Per Protocol) 1 each MISCELLANE DAILY PRN ; Protocol PRN Reason: Per Protocol Ondansetron HCl (Zofran) 4 mg IVP Q6HR PRN PRN Reason: Nausea And Vomiting Pantoprazole Sodium (Protonix) 40 mg IVP DAILY [facility] Last Admin: 04/29/16 08:28 Dose: 40 mg Plan: Status post CABG, AVR, reoperative bleed day 11 Slow steady progress Continue aggressive pulmonary toilet utilizing incentive spirometry, coughing and deep breathing, and inhalation treatments per respiratory therapy. Give amiodarone bolus if heart rhythm doesn't stabilize with beta racheal dose. <Vineet Meade - Last Filed: 04/29/16 12:40> Progress Note - Text The patient was seen and examined. I aqree with the above assessment and plan. The patient is currently in atrial fibrillation with rapid ventricular response. Apparently it began earlier this morning. He is currently on metoprolol 50 mg 3 times a day. I do not think there is room on his blood pressure to increase this dose. We will therefore load him with IV amiodarone and begin a drip. Otherwise I think he is doing well. He is currently on nasal cannula. I have encouraged him to continue with deep breathing and coughing. He is currently receiving Mucomyst to help breakup his secretions. We will give him a dose of Lasix. He failed his bedside swallow yesterday, however he is tolerating applesauce. I would hold off placing an NG tube for now. He is to receive a formal swallow eval by speech pathology tomorrow. If he fails that test then I would go ahead and place a Dobbhoff tube. The patient is significantly debilitated and is requiring maximum assistance for transfers. We will get physical therapy to continue working with him tomorrow.
[2016-04-29] MEDS: DEXTROSE 5% IN WATER 1,000 ML IV SCH (10:00)
--- NOTE | 2016-04-29 11:44 | XR ---
EXAMINATION TYPE: XR chest 1V portable DATE OF EXAM: 04/29/2016 11:33 AM Comparison: 04/28/2016 Clinical History: 76-year-old male status post CABG, CHF, shortness of breath. Findings: Median sternotomy wires are present. Heart remains moderately enlarged with interstitial prominence. Left greater than right bibasilar opacities persist. Left PICC tip not seen beyond the left brachioce phalic vein. Possibly due to the degree of penetration. Impression: Overall stable exam with findings suggesting CHF with pulmonary vascular congestion. Continued small left greater than right pleural effusions with adjacent atelectasis and/or consolidation.
[2016-04-29] MEDS ORDERED: DEXTROSE 5% IN WATER 100 ML with AMIODARONE 150 MG IV ONE (11:51)
[2016-04-29] MEDS ORDERED: FUROSEMIDE 10 MG/ML 2 ML VIAL IV ONE (11:51)
[2016-04-29 12:54] LABS: Glucose,Whole Blood 123 mg/dL (75-99)
--- NOTE | 2016-04-29 13:33 | PN ---
DATE OF SERVICE: 04/27/2016 INTERVAL HISTORY: Mr. Mccracken is a 76-year-old male was admitted to hospital with ST elevation myocardial infarction and was found to have triple vessel disease and underwent coronary artery bypass graft and aortic valve replacement postop day 9. Patient currently still extubated. Otherwise, the patient ( ) atrial fibrillation with rapid ventricular rate last night and his Lopressor dose was increased. Currently patient failed swallow evaluation and is currently n.p.o. except for fluid chips. The patient is continued on antibiotics in the form of Zosyn and otherwise denied any complaints of chest pain or short of breath. Otherwise, no acute overnight issues. Complete review of systems could not be obtained from the patient. Otherwise, patient is more awake and alert today. Chest x-ray showed mild congested changes. ( ) level is still elevated. CURRENT MEDICATIONS: Reviewed. PHYSICAL EXAMINATION: A 76-year-old male lying in the bed. Awake, alert, awake, appears to be in no apparent distress, requesting to eat. VITALS: Blood pressure is 117/56, pulse is 89, respirations 30, temperature afebrile, pulse ox 95% on nasal cannula. HEENT: Atraumatic, normocephalic. Neck is supple. No JVD. CVS: S1, S2 heard. No murmurs, no gallop. LUNGS: Bilateral rhonchi and crackles in the bases. No wheezing. ABDOMEN: Soft. Bowel sounds are present. No palpable organomegaly. Obese. EXTREMITIES: Trace edema. Pulses palpable bilaterally. No clubbing or cyanosis. Patient does have lacerated right groin area. Previous cardiac catheterization. LABORATORY DATA: WBC 10.1, hemoglobin 8.4, platelets 235. Sodium 143.8, chloride 113, bicarb is 28. BUN 36, creatinine 0.9. Chest x-ray suggestive of mild congested changes. IMPRESSION: 1. Acute hypoxic respiratory failure post surgery, currently extubated. 2. Cardiogenic shock improved resolved, status post milrinone drip and ( ) drip. 3. Status post coronary artery bypass graft triple vessel and aortic valve replacement postop day 9. 4. Acute elevated myocardial infarction on admission. 5. New onset atrial fibrillation, rapid ventricular rate, patient was given Amiodarone. ( ) dose has been increased. Currently in sinus rhythm. 6. Bilateral pleural effusion. 7. Hypernatremia due to free water deficit. 8. Failed swallow evaluation, currently n.p.o. 9. Congestive heart failure with ejection fraction 20-25% preoperatively. 10. Chronic obstructive pulmonary disease. 11. Osteoporosis. 12. Morbid obesity, body mass index of 40.5. 13. Acute kidney injury, most likely prerenal improving. 14. Questionable right atrial thrombus on echocardiogram initially. 15. Acute blood loss anemia secondary to recent surgery, stable now. 16. Benign prostatic hypertrophy. 17. Deep venous thrombosis prophylaxis on subcu heparin. DISCUSSION AND PLAN: 76 -year-old male admitted to the hospital with ( ) myocardial infarction, currently underwent coronary artery bypass graft, postoperative day nine, will continue current management including antibiotics. The patient was given IV Lasix again today and continue to monitor closely. The patient failed swallow evaluation. Currently n.p.o. Continue DVT prophylaxis. Cardiology, pulmonary and CT surgery is following this patient.
--- NOTE | 2016-04-29 13:42 | PN ---
DATE OF SERVICE: 04/28/2016 INTERVAL HISTORY: Mr. Mccracken is a 76-year-old man who was admitted to the hospital with ST elevated myocardial infarction and was found to have triple vessel coronary artery disease, status post coronary artery bypass graft, post op day number ten and aortic valve replacement as well. Today the patient is more awake and oriented. Currently still n.p.o. Chest x-ray showed atelectasis of the right lung base and component of heart failure. Otherwise, patient is currently back to sinus rhythm. The patient sodium level is still elevated. No fever. No chills. Currently on antibiotics in the form of Augmentin. The patient is more awake, oriented. Denied any chest pain. No nausea or vomiting, abdominal pain. Complete review of systems could not be obtained from above. Current medications include: 1. [place] 5/325. 2. DuoNeb. 3. Augmentin. 4. Aspirin. 5. Lipitor. 6. Bacitracin ointment. 7. Dulcolax. 8. Plavix. 9. Dextrose water at 50 mL per hour. 10. Colace. 11. Heparin subcu. 12. Humalog. 13. Zestril. 14. Milk of magnesia. 15. Lopressor. 16. Zofran. 17. Protonix. PHYSICAL EXAMINATION: A 76-year-old male lying in the bed comfortably, awake, alert, oriented x2 to 3, appears in no apparent distress. VITALS: Blood pressure is 143/51, pulse is 82, respirations 21, temperature afebrile, pulse ox is 97% on 6 L nasal cannula. HEENT: Atraumatic, normocephalic. Neck is supple. No JVD. CVS: S1, S2 heard. Sternotomy scar is intact. Chest tubes are present. No murmurs, no gallop. Sinus rhythm. LUNGS: Bilateral basilar crackles positive and decreased air entry and rhonchi. ABDOMEN: Soft, obese, bowel sounds present. CENTRAL NERVOUS SYSTEM: Awake, alert and oriented x2 to 3. No focal neurologic deficit. EXTREMITIES: Trace edema. Pulses are palpable bilaterally. No clubbing or cyanosis. PSYCHIATRIC: Cooperative. Could not assessed completely. LABORATORY DATA: WBC 10.5, hemoglobin 8.5, platelets 261. Sodium 150, potassium 3.9, chloride 115, bicarb is 28. BUN 33, creatinine 0.9, magnesium 2.5. Chest x-ray reviewed. Echocardiogram showed left ventricular systolic function severely impaired with ejection fraction of 25 to 30%. ( ) aortic valve is function normally. IMPRESSION: 1. Status post coronary artery bypass graft and aortic valve replacement postop day ten. 2. Acute hypoxic respiratory failure and cardiogenic shock post surgery, resolved now. 3. Ischemic cardiomyopathy, ejection fraction and 25 to 30%. 4. Bilateral pleural effusion, improved. 5. Poor oral intake and unable to tolerate p.o. diet and failed swallow evaluation. 6. Chronic obstructive pulmonary disease. 7. Hypernatremia. 8. Morbid obesity with a body mass index of 40.5. 9. Acute kidney injury, improved now. 10. Questionable right atrial thrombus on echocardiogram initially. 11. Acute blood loss anemia secondary to recent surgery, stable now. 12. Benign prostatic hypertrophy. 13. Deep venous thrombosis prophylaxis, on heparin subcu. 14. ( ) species in the sputum culture. DISCUSSION AND PLAN: Patient will be continued on current management including aspirin statins, Plavix and continue with diuresis with IV Lasix, the patient was given dose of IV Lasix and continue breathing treatments, continue blood pressure medications including metoprolol and Lisinopril and continue with GI and DVT prophylaxis. Follow up closely. Further recommendations based on the clinical course.
[2016-04-29] MEDS: AMIODARONE 450 MG in DEXTROSE 5% IN WATER 250 ML IV SCH ×2 (14:22)
--- NOTE | 2016-04-29 15:17 | P.PN ---
Subjective Principal diagnosis: Triple-vessel coronary artery disease, severe LV dysfunction. Right lower lobe collapse This 76-year-old male patient , post 3 vessel bypass surgery including PHAM to LAD saphenous vein graft to diagonal and ramus branches and aortic valve replacement was currently back in the intensive care unit and the patient is postop day 1. Note that the patient was taken back to the operating room after he arrived the ICU. The patient was having bleeding from his mediastinal chest tubes. Further examination was done and the bleeding site was identified and the local hemostasis was achieved and following that the patient was brought back to the intensive care unit. Overnight, the patient remains on a mechanical ventilator and he remains sedated with Diprivan. He was gradually taken off the vasopressin drip and the Gal-Synephrine drip and both are discontinued. Currently is on 8 mics of norepinephrine infusion and Primacor. He is hemodynamically stable. He remains on a mechanical ventilator and his series of chest x-rays that was done postop showed a partial atelectasis of the right upper lobe which subsequently improved. Morning's chest x-ray showed adequate expansion of the right upper lobe area and there is probably some small better pleural effusion. ET tube is in a good location. The patient has a Moody-Candace catheter in place. There aren't pleural and mediastinal chest tubes are all in place. On the mechanical ventilator, the patient is on a assist-control mode at the rate of 20, tidal volume of 650, FiO2 of 80% and PEEP of 12. He is having some air leak within the mediastinal chest tube. Output however has improved and there is evidence of any acute bleeding. Hemoglobin is stable for now. Patient was reevaluated today on 04/24/2016, chest x-ray continues to show steady improvement, and slightly better compared to chest x-ray yesterday. Patient was given a short weaning trial on pressure support of 8 and CPAP, and according to the nurses he became quite restless, blood pressure was extremely high, and the patient was noted to be working hard to breathe. His work of breathing was noted to be significant, hence no more than half hour trial was given. Patient was placed back on assist control mode. Patient is postoperative day #6, triple vessel coronary artery bypass grafting and aortic valve replacement using a 25 mm pericardial bioprosthesis. Patient also required reexploration for postoperative bleeding. He is still on mechanical ventilation today, placed back on propofol at 20 mcg/kg/m, and he remains on Primacor. At 0.15 mcg/kg/m. Patient is receiving Lasix intermittently. ABG today showed a pO2 of 93 pCO2 of 40 pH of 7.45. Basic metabolic profile is relatively unremarkable, BUN is 37 creatinine is 1.1 Patient was reevaluated on 04/25/2016, patient was taken off propofol, and he was given a trial of weaning on pressure support of 12 which I will be cutting down the pressure support of 8, I doubt if the patient will fully wean and extubate today, and this is mostly because of his significant secretions in the endotracheal tube. Chest x-ray is basically about the same, I given a dose of Lasix 20 mg IV push earlier this morning. Off propofol, patient was noted to be slightly confused, but able to follow simple instructions like wiggling toes , squeezing hands, closing eyes. I believe the patient is neurologically intact , and his neurological status will improve with holding sedation longer period the only concern I have today is the fact that the patient has significant amount of secretions in the endotracheal tube and he is being suctioned frequently. Otherwise I would have extubated the patient today after a trial of pressure support of 8 and CPAP. ABG today showed a pO2 of 80 pCO2 of 36 pH of 7.48 and this was on 40% FiO2 and PEEP of 5 his electrolytes and renal profile were reviewed, sodium is a bit elevated, however the patient is receiving free water flushes via nasogastric tube and that will improve his hypernatremia. Patient was reevaluated today on 04/26/2016, he was weaned while I was at the bedside, placed initially on pressure support of 8 and CPAP, and patient tolerated the process quite well. Hence patient was extubated to a nasal cannula uneventfully. Chest x-ray is a bit improved compared to his x-ray in the last few days. His labs were noted about the same including a CBC with a hemoglobin of 8 and the [place] count of 8.8 CPAP ABG showed a pO2 of 99 pCO2 of 34 pH of 7.50. And this was on 40% FiO2 with pressure support of 8 and CPAP for about 45 minutes. His sodium remains high, hence I will increase the free water fluid boluses in the nasogastric tube. And we will change the IV fluid to D5W. Patient was reevaluated today, he tolerated the extubation well, and he remains on 5 L nasal cannula. Patient has good cough, he is able to clear his secretions, however he went last night into atrial fibrillation with RVR, and he was given IV amiodarone. His Lopressor dose will be increased, apparently he failed the swallow test, and he remains nothing by mouth for now. I did give the patient a dose of Lasix 20 mg IV push because of his slightly abnormal chest x-ray suggestive of mild congestive changes. Labs were reviewed, sodium remains a bit high at 149 renal profile is relatively normal CBC showed a hemoglobin of 8.4. Patient was reevaluated today on 04/28/2016, seems to be doing relatively well in spite of his multiple medical issues. Remains on nasal cannula, apparently tolerated the extubation well over the last 2 days now. Chest x-ray is showing some atelectasis at the right lung base, and some component of mild failure. His sodium remains elevated at 150 and that is being corrected by fluid restriction. Hemoglobin is 8.5, WBC count is 10.5. Renal profile is about the same with a BUN of 33 creatinine of 0.90. His medications were all reviewed. Patient remains on Augmentin Patient was reevaluated today on 04/29/2016, patient is sitting in a bedside chair , he seems to be a bit dehydrated, has dry mucous membranes, he looks slightly pale, and he is generally weak and debilitated. Nasal cannula remains in place , he is saturating quite well. Apparently last night went back into atrial fibrillation with RVR, he is presently on beta blockers, and amiodarone was added. Chest x-ray is suggestive of mild congestive changes, with minimal right lower lobe atelectasis. Patient failed his swallow evaluation, and he is to be reevaluated again. I suggested placement of a nasogastric tube or Dobbhoff tube, and at least get his nutritional status upper lid bit. However that will be decided by the surgeon on the case. In the meantime the patient will need his sodium to be corrected, and I believe he is water depleted, patient will need to be placed on D5W or if a nasogastric tube is placed, patient could receive free water via the nasogastric tube, in the meantime we' ll need to liberalize his fluid and free water intake. Patient will definitely need physical therapy, and he will definitely need a long course of rehab. His labs were reviewed today, hemoglobin is 8.5, and his sodium is up to 153. I instructed the nurses to liberalize his free water intake. And I restarted him on D5W at 50 mL per hour. Patient remains on bronchodilators and he remains on incentive spirometry. Objective - Vital Signs Vital signs: Vital Signs Temp 98.1 F 04/29/16 04:00 Pulse 103 H 04/29/16 14:53 Resp 22 04/29/16 14:53 BP 110/68 04/29/16 14:53 Pulse Ox 97 04/29/16 14:53 Intake & Output 04/28/16 04/29/16 04/29/16 18:59 06:59 18:59 Intake Total 127 84 613.3 Output Total 645 447 630 Balance -518 -363 -16.7 Intake: IV 127 84 30 0.9NS Pressure Bag 27 84 30 Potassium Chloride 10 meq 100 In Water For Injection 1 100ml.bag @ 100 mls/hr IVPB Q1H ADAM Rx#: [id number] Intake, IV Titration 583.3 Amount Amiodarone 450 mg In 33.3 Dextrose 5% in Water 250 ml @ 1 MG/MIN 34.53 mls/ hr IV .Q7H31M ADAM Rx#: [id number] Dextrose 5% in Water 1, 250 000 ml @ 50 mls/hr IV . Q20H ADAM Rx#:[id number] Dextrose 5% in Water 100 100 ml @ 618 mls/hr IV .Q10M ONE with Amiodarone 150 mg Rx#:[id number] Potassium Chloride 10 meq 200 In Water For Injection 1 100ml.bag @ 100 mls/hr IVPB Q1H ADAM Rx#: [id number] Output: Urine 647 129 630 Other: Voiding Method Indwelling Catheter Indwelling Catheter # Bowel Movements 1 1 ABP, PAP, CO, CI - Last Documented Arterial Blood Pressure 110/63 Pulmonary Artery Pressure 31/25 Cardiac Output 7 Cardiac Index 3.0 - Exam Physical Exam: Revealed a 76 on nasal cannula, awake, follows simple instructions, no confusion today. Looks slightly dehydrated. In no distress. HEENT: Neck supple no neck masses, dry mucous membranes were noted Chest: [Crackles and rhonchi at the bases] Cardiac Exam: [Normal S1 and S2, no S3 gallop, no murmur.] Abdomen: [Soft, nontender, no megaly, no rebound, no guarding, normal bowel sounds.] Extremities: [No clubbing, no edema, no cyanosis.] I - Labs CBC & Chem 7: 04/29/16 04:25 04/29/16 14:00 Labs: Abnormal Lab Results - Last 24 Hours (Table) 04/28/16 04/29/16 04/29/16 Range/Units 16:05 00:41 04:25 WBC (3.8-10.6) k/uL RBC (4.30-5.90) m/uL Hgb (13.0-17.5) gm/dL Hct (39.0-53.0) % MCHC (31.0-37.0) g/dL Neutrophils # (1.3-7.7) k/uL Sodium 153 H (137-145) mmol/L Chloride 115 H (98-107) mmol/L BUN 32 H (9-20) mg/dL Glucose 104 H (74-99) mg/dL POC Glucose (mg/dL) 100 H 102 H (75-99) mg/dL Calcium 8.3 L (8.4-10.2) mg/dL Magnesium 2.5 H (1.6-2.3) mg/dL 04/29/16 04/29/16 04/29/16 Range/Units 04:25 04:27 07:43 WBC 10.9 H (3.8-10.6) k/uL RBC 2.92 L (4.30-5.90) m/uL Hgb 8.5 L (13.0-17.5) gm/dL Hct 28.0 L (39.0-53.0) % MCHC 30.1 L (31.0-37.0) g/dL Neutrophils # 8.9 H (1.3-7.7) k/uL Sodium (137-145) mmol/L Chloride (98-107) mmol/L BUN (9-20) mg/dL Glucose (74-99) mg/dL POC Glucose (mg/dL) 108 H 102 H (75-99) mg/dL Calcium (8.4-10.2) mg/dL Magnesium (1.6-2.3) mg/dL 04/29/16 Range/Units 12:52 WBC (3.8-10.6) k/uL RBC (4.30-5.90) m/uL Hgb (13.0-17.5) gm/dL Hct (39.0-53.0) % MCHC (31.0-37.0) g/dL Neutrophils # (1.3-7.7) k/uL Sodium (137-145) mmol/L Chloride (98-107) mmol/L BUN (9-20) mg/dL Glucose (74-99) mg/dL POC Glucose (mg/dL) 123 H (75-99) mg/dL Calcium (8.4-10.2) mg/dL Magnesium (1.6-2.3) mg/dL Microbiology - Last 24 Hours (Table) 04/26/16 22:10 Anaerobic Culture - Preliminary Groin 04/26/16 22:10 Gram Stain - Final Groin Wound Culture - Final Assessment and Plan Plan: 1 POD: #11 , triple vessel coronary artery bypass grafting using the left internal mammary artery to the left anterior descending coronary artery, a reverse greater saphenous vein graft from the aorta to the early arising posterior descending coronary artery, a reverse greater saphenous vein graft from the aorta to the intramyocardial ramus intermedius artery proximally. 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 Intraoperative transesophageal echocardiogram and Epi-aortic scanning. Endoscopic vein harvesting of the right greater saphenous vein. #11 Reexploration for postoperative bleeding. On 04/27/2016, patient has been off mechanical ventilation for the last 24 hours , tolerated the extubation well, continues to have mild congestive changes on the chest x-ray hence Lasix was given. His right groin area will be addressed by surgery and cardiology and I have recommended keeping the patient in the ICU. Patient was placed on amiodarone earlier this morning because of A. fib and RVR. Patient remains nothing by mouth because of failed the swallow evaluation. On 04/28/2016, patient tolerated extubation well over the last 2 days, doing relatively well, however continues to do poorly with incentive spirometry, patient is to become more active, more ambulation need to be addressed, and in the meantime we'll continue bronchodilators, incentive spirometry, and hopefully ambulate in the hallway if possible in the next 24-48 hours On 04/29/2016, patient is doing relatively well except he seems to be generally weak, I believe he is dehydrated, intravascular depleted, needs free water, and he is hypernatremic and mostly debilitated. Nutritional status will need to be addressed and bit more aggressively. If any nasogastric tube or Dobbhoff tube were placed.. 2 coronary artery disease, 3 CHF with a preop ejection fraction of 20-25%, mild congestive heart failure noted on the chest x-ray, and the patient will receive Lasix 20 mg IV push 1 today. 4 questionable right atrial thrombus 5 scoliosis of the thoracic spine 6 benign prostatic hypertrophy 7 hyperlipidemia. 8 osteoarthritis 9 acute kidney injury, improved 10 obesity 11 postoperative anemia the patient was given a unit of packed RBC and the current hemoglobin is 8.5 Plan Continue supportive care measures, keep the patient in the ICU, will continue to follow. Continue incentive spirometry, bronchodilators, and not quite ready to be transferred out of the ICU . Consider Dobbhoff for nasogastric tube placement for nutritional support and free water flushes. Time with Patient: Less than 30
[2016-04-29] MEDS: BENZOCAINE/MENTHOL LOZENG 1 EACH LOZENGE MUCOUS MEM PRN ×2 (15:23→23:52)
[2016-04-29 16:18] LABS: Glucose,Whole Blood 145 mg/dL (75-99)
[2016-04-29] MEDS ORDERED: POTASSIUM CHLORIDE ER 20 MEQ TAB.ER PO SCH (17:00)
[2016-04-29 23:49] LABS: Glucose,Whole Blood 125 mg/dL (75-99)
[2016-04-30] MEDS: AMIODARONE 450 MG in DEXTROSE 5% IN WATER 250 ML IV SCH ×6 (00:13→12:53)
[2016-04-30] MEDS: IPRATROPIUM-ALBUTEROL 3 ML NEB INHALATION SCH ×5 (01:22→19:25)
[2016-04-30 05:22] LABS: Glucose,Whole Blood 118 mg/dL (75-99)
[2016-04-30 06:08] LABS: Magnesium 2.4 mg/dL (1.6-2.3); Phosphorous 3.4 mg/dL (2.5-4.5)
[2016-04-30] MEDS: INSULIN LISPRO (humaLOG) 300 UNIT/3 ML VIAL SQ SCH ×4 (06:35→23:31)
[2016-04-30 06:45] LABS: Basophils # (A) 0.1 k/uL (0-0.2); Basophils % (A) 0 %; CH 29.9; CHCM 31.1; Eosinophils # (A) 0.2 k/uL (0-0.7); Eosinophils % (A) 2 %; HCT 28.9 % (39.0-53.0); HDW 3.39; HGB 8.9 gm/dL (13.0-17.5); Hypochromasia Moderate; Luc # (Auto) 0.14; Luc % (Auto) 1; Lymphocytes % (A) 9 %; MCH 29.7 pg (25.0-35.0); MCHC 30.7 g/dL (31.0-37.0); MCV 96.8 fL (80.0-100.0); Mean Platelet Volume 7.9; Monocytes # (A) 0.6 k/uL (0-1.0); Monocytes % (A) 6 %; Neutrophils # (A) 9.6 k/uL (1.3-7.7); Neutrophils % (A) 83 %; RBC 2.98 m/uL (4.30-5.90); RDW 15.4 % (11.5-15.5); WBC 11.7 k/uL (3.8-10.6); WBC (Perox) 12.42
[2016-04-30 06:49] LABS: Anion Gap 10 mmol/L; Blood Urea Nitrogen 34 mg/dL (9-20); Calcium 8.2 mg/dL (8.4-10.2); Carbon Dioxide 27 mmol/L (22-30); Chloride 112 mmol/L (98-107); Glucose 114 mg/dL (74-99); Non-African American GFR(MDRD) >60 (>60 ml/min/1.73 sqM); Potassium 3.6 mmol/L (3.5-5.1); Sodium 149 mmol/L (137-145)
[2016-04-30] MEDS: ACETYLCYSTEINE 800 MG/4 ML VIAL INHALATION SCH ×4 (07:12→19:25)
[2016-04-30] MEDS ORDERED: POTASSIUM CHLORIDE ORAL LIQUID 40 MEQ/30 ML CUP NG-TUBE SCH (08:00)
--- NOTE | 2016-04-30 08:20 | XR ---
EXAMINATION TYPE: XR chest 1V portable DATE OF EXAM: 04/30/2016 6:38 AM COMPARISON: NONE INDICATION: Status post CABG, CHF TECHNIQUE: Single frontal view of the chest is obtained. FINDINGS: Heart size is prominent. The pulmonary vasculature is normal. Mild increased lung markings are present in the lung coffman. This is greater in the lung bases and on the left. Small left pleural effusion is present. Minimal right pleural effusion may be present. Sternotomy wires are present from the patient's CABG. EKG leads overlie the chest. IMPRESSION: 1. Diffuse increased lung markings can be compatible with some pulmonary edema. Small bilateral pleur al effusions are present. Follow-up exams are recommended.
[2016-04-30] MEDS: DEXTROSE 5% IN WATER 1,000 ML IV SCH (08:32)
[2016-04-30] MEDS: HEPARIN SODIUM,PORCINE 5,000 UNIT/ML 1 ML VIAL SQ SCH ×3 (08:33→23:30)
[2016-04-30] MEDS: BENZOCAINE/MENTHOL LOZENG 1 EACH LOZENGE MUCOUS MEM PRN ×2 (08:33→21:21)
--- NOTE | 2016-04-30 08:35 | PN ---
Mr. Mccracken is a 76-year-old male, status post coronary artery bypass grafting, aortic valve replacement, severe cardiomyopathy. He is feeling well this morning. He ambulated to the chair. He has no chest pain. He has another episode of atrial fibrillation. He denies any nausea or vomiting. His to oral intake has not been very good. He has failed the swallow evaluation. He continues to be at this time on IV amiodarone, aspirin, Lipitor 40 mg daily, Plavix 75 mg daily, lisinopril 2.5 mg daily, metoprolol tartrate 50 mg 3 times a day. PHYSICAL EXAMINATION: Blood pressure 110/60 with a heart rate in the low 100s. Lungs with decreased air exchange. No wheezes. HEART: Irregularly, irregular. S1, S2, no S3, no rub. ABDOMEN: Soft, nontender. EXTREMITIES: +1 edema. Lab data revealed sodium 153, BUN and creatinine 32 and 0.9. Hemoglobin of 8.5. IMPRESSION: 1. Status post coronary artery bypass grafting and aortic valve replacement. 2. Severe ischemic cardiomyopathy. 3. Paroxysmal atrial fibrillation, recurrent. 4. Hypernatremia. 5. General medical debilitation following his surgery. RECOMMENDATION: Patient will need to be anticoagulated because of the recurrent episode of atrial fibrillation. He will need free water because of the hypernatremia and if he is not able to swallow, then a Dobbhoff tube may be an option and receive free water. In the meantime, will continue to increase his ( ) gradually. I will leave the decision of anticoagulation to the surgeon, but I believe that he should be anticoagulated. He would require an episode of diuretic on as-needed basis in view of the cardiomyopathy.
--- NOTE | 2016-04-30 10:11 | P.PN ---
Subjective This is a 76-year-old patient who was admitted back on April 13 with a diagnosis of non-ST segment elevation myocardial infarction and shortness of breath. The patient went to the [facility] on April 15 and was found to have three-vessel disease with aortic stenosis. On the , the patient went to the operating room and had a three-vessel bypass grafting and aortic valve replacement. Today's postop day #12. The patient also to go back to the or on the same day for bleeding. In addition, the patient has had 4 bronchoscopies for lung collapse and retained secretions. He was finally extubated on the . The patient has had difficulty swallowing and is been some concerns about chronic aspiration. Going for a modified barium swallow today. The patient's currently on 4 L nasal cannula and IV of D5W at 50 mL now and Cordarone 0.5 mg/m for his atrial fibrillation. In addition to his three-vessel bypass grafting aortic valve replacement for aortic stenosis, the patient has a history of ventilator dependent respiratory failure with ultimate extubation on April 26, CAD, heart failure, scoliosis, benign prostatic hypertrophy, hyperlipidemia, DJD, acute kidney injury, obesity , and postoperative anemia. Objective - Vital Signs Vital signs: Vital Signs Temp 98.8 F 04/30/16 08:00 Pulse 143 H 04/30/16 09:00 Resp 26 H 04/30/16 09:00 BP 123/59 04/30/16 09:00 Pulse Ox 95 04/30/16 09:00 Intake & Output 04/29/16 04/30/16 04/30/16 18:59 06:59 18:59 Intake Total 996.5 1349.000 150 Output Total 955 395 200 Balance 41.5 954.000 -50 Weight 128.9 kg 124.8 kg Intake: IV 30 500 150 0.9NS Pressure Bag 30 Dextrose 5% in Water 1, 500 150 000 ml @ 50 mls/hr IV . Q20H ADAM Rx#:[id number] Intake, IV Titration 966.5 309.000 Amount Amiodarone 450 mg In 166.5 259.000 Dextrose 5% in Water 250 ml @ 1 MG/MIN 34.53 mls/ hr IV .Q7H31M ADAM Rx#: [id number] Dextrose 5% in Water 1, 500 50 000 ml @ 50 mls/hr IV . Q20H ADAM Rx#:[id number] Dextrose 5% in Water 100 100 ml @ 618 mls/hr IV .Q10M ONE with Amiodarone 150 mg Rx#:[id number] Potassium Chloride 10 meq 200 In Water For Injection 1 100ml.bag @ 100 mls/hr IVPB Q1H ADAM Rx#: [id number] Oral 540 Output: Urine 955 395 200 Other: Voiding Method Indwelling Catheter Indwelling Catheter # Bowel Movements 1 1 ABP, PAP, CO, CI - Last Documented Arterial Blood Pressure 120/65 Pulmonary Artery Pressure 31/25 Cardiac Output 7 Cardiac Index 3.0 - Exam No acute distress, oriented 3. HEENT examination is grossly unremarkable. Mucous membranes are moist. Supple. Full range of motion. No adenopathy. Cardiovascular examination reveals regular rhythm rate. S1-S2 normal. No S3- S4. No murmur. Next Lungs reveal bibasilar crackles. Abdomen soft bowel sounds are heard. Extremities are intact. - Labs CBC & Chem 7: 04/30/16 05:25 04/30/16 05:25 Labs: Abnormal Lab Results - Last 24 Hours (Table) 04/29/16 04/29/16 04/29/16 Range/Units 12:52 16:16 23:48 WBC (3.8-10.6) k/uL RBC (4.30-5.90) m/uL Hgb (13.0-17.5) gm/dL Hct (39.0-53.0) % MCHC (31.0-37.0) g/dL Neutrophils # (1.3-7.7) k/uL Sodium (137-145) mmol/L Chloride (98-107) mmol/L BUN (9-20) mg/dL Glucose (74-99) mg/dL POC Glucose (mg/dL) 123 H 145 H 125 H (75-99) mg/dL Calcium (8.4-10.2) mg/dL Magnesium (1.6-2.3) mg/dL 04/30/16 04/30/16 04/30/16 Range/Units 05:21 05:25 05:25 WBC 11.7 H (3.8-10.6) k/uL RBC 2.98 L (4.30-5.90) m/uL Hgb 8.9 L (13.0-17.5) gm/dL Hct 28.9 L (39.0-53.0) % MCHC 30.7 L (31.0-37.0) g/dL Neutrophils # 9.6 H (1.3-7.7) k/uL Sodium (137-145) mmol/L Chloride (98-107) mmol/L BUN (9-20) mg/dL Glucose (74-99) mg/dL POC Glucose (mg/dL) 118 H (75-99) mg/dL Calcium (8.4-10.2) mg/dL Magnesium 2.4 H (1.6-2.3) mg/dL 04/30/16 Range/Units 05:25 WBC (3.8-10.6) k/uL RBC (4.30-5.90) m/uL Hgb (13.0-17.5) gm/dL Hct (39.0-53.0) % MCHC (31.0-37.0) g/dL Neutrophils # (1.3-7.7) k/uL Sodium 149 H (137-145) mmol/L Chloride 112 H (98-107) mmol/L BUN 34 H (9-20) mg/dL Glucose 114 H (74-99) mg/dL POC Glucose (mg/dL) (75-99) mg/dL Calcium 8.2 L (8.4-10.2) mg/dL Magnesium (1.6-2.3) mg/dL Microbiology - Last 24 Hours (Table) 04/26/16 22:10 Anaerobic Culture - Preliminary Groin 04/26/16 22:10 Gram Stain - Final Groin Wound Culture - Final Assessment and Plan Plan: Plan dated 04/30/2016 The patient will go for a modified barium swallow. Ex The patient currently remains on his IV Cordarone at 0.5 mg/m. The patient's are reasonably stable. The patient has an overall guarded prognosis. Additional recommendations suggestions are forthcoming. Time with Patient: Less than 30
[2016-04-30] MEDS ORDERED: METOPROLOL TARTRATE 5 MG/5 ML VIAL IVP ONE (10:18)
[2016-04-30 11:44] LABS: Glucose,Whole Blood 126 mg/dL (75-99)
--- NOTE | 2016-04-30 12:12 | P.PN ---
<Hu Holly - Last Filed: 04/30/16 11:41> Progress Note - Text CV Surgery Nursing POD: #12, triple-vessel coronary artery bypass grafting utilizing left internal mammary artery to left anterior descending coronary artery and reverse saphenous vein grafts to the posterior descending coronary artery and ramus intermedius coronary artery. Aortic valve replacement using a 25 mm pericardial bioprosthesis. Endoscopic vein harvesting of the right greater saphenous vein. Intraoperative transesophageal echocardiogram and epi-aortic ultrasonography. #12, reexploration for postoperative bleeding. Patient awake and alert, voice is hoarse, patient remains very weak requiring considerable assistance to dangle on bed and get in the bedside chair. Vital Signs: Afebrile , T-max is 98.8F Vital Signs - 24 hr 04/29/16 04/29/16 04/29/16 12:00 13:00 14:00 Temperature 98.4 F Pulse Rate 135 H 118 H 122 H Pulse Rate [ 122 H Expense Clerk ] Respiratory 22 14 18 Rate Blood Pressure 114/62 Blood Pressure [Right Arm] O2 Sat by Pulse 98 95 96 Oximetry 04/29/16 04/29/16 04/29/16 14:08 14:23 14:38 Temperature Pulse Rate Pulse Rate [ 122 H 117 H 108 H Expense Clerk ] Respiratory 20 24 21 Rate Blood Pressure Blood Pressure 119/74 114/68 108/61 [Right Arm] O2 Sat by Pulse 98 98 98 Oximetry 04/29/16 04/29/16 04/29/16 14:53 15:00 15:32 Temperature Pulse Rate 119 H 112 H Pulse Rate [ 103 H Expense Clerk ] Respiratory 22 23 Rate Blood Pressure 119/74 Blood Pressure 110/68 [Right Arm] O2 Sat by Pulse 97 97 Oximetry 04/29/16 04/29/16 04/29/16 15:44 15:45 16:00 Temperature 98.4 F Pulse Rate 112 H 110 H Pulse Rate [ 103 H Expense Clerk ] Respiratory 23 18 Rate Blood Pressure 100/60 Blood Pressure [Right Arm] O2 Sat by Pulse 95 Oximetry 04/29/16 04/29/16 04/29/16 17:00 18:00 19:00 Temperature Pulse Rate 107 H 105 H 103 H Pulse Rate [ Expense Clerk ] Respiratory 22 23 23 Rate Blood Pressure 96/60 110/64 109/64 Blood Pressure [Right Arm] O2 Sat by Pulse 93 L 94 L 96 Oximetry 04/29/16 04/29/16 04/29/16 19:39 19:53 20:00 Temperature 97.9 F Pulse Rate 101 H 93 107 H Pulse Rate [ Expense Clerk ] Respiratory 24 Rate Blood Pressure 103/62 Blood Pressure [Right Arm] O2 Sat by Pulse 93 L 93 L Oximetry 04/29/16 04/29/16 04/29/16 21:00 22:00 23:00 Temperature Pulse Rate 108 H 103 H 103 H Pulse Rate [ Expense Clerk ] Respiratory 20 15 24 Rate Blood Pressure 100/53 108/60 110/64 Blood Pressure [Right Arm] O2 Sat by Pulse 95 95 94 L Oximetry 04/30/16 04/30/16 04/30/16 00:00 01:00 01:23 Temperature 98.2 F Pulse Rate 95 93 103 H Pulse Rate [ Expense Clerk ] Respiratory 22 20 Rate Blood Pressure 102/63 114/65 Blood Pressure [Right Arm] O2 Sat by Pulse 97 96 Oximetry 04/30/16 04/30/16 04/30/16 01:36 02:00 03:00 Temperature Pulse Rate 100 131 H 117 H Pulse Rate [ Expense Clerk ] Respiratory 22 23 Rate Blood Pressure 102/57 111/66 Blood Pressure [Right Arm] O2 Sat by Pulse 93 L 95 Oximetry 04/30/16 04/30/16 04/30/16 04:00 05:00 06:00 Temperature Pulse Rate 120 H 103 H 98 Pulse Rate [ 103 H Expense Clerk ] Respiratory 20 18 21 Rate Blood Pressure 100/64 104/74 106/50 Blood Pressure [Right Arm] O2 Sat by Pulse 96 91 L 94 L Oximetry 04/30/16 04/30/16 04/30/16 07:00 07:16 07:25 Temperature Pulse Rate 106 H 110 H 106 H Pulse Rate [ Expense Clerk ] Respiratory 23 Rate Blood Pressure 105/65 Blood Pressure [Right Arm] O2 Sat by Pulse 96 93 L Oximetry 04/30/16 04/30/16 04/30/16 08:00 09:00 10:00 Temperature 98.8 F Pulse Rate 112 H 143 H 136 H Pulse Rate [ Expense Clerk ] Respiratory 18 26 H 17 Rate Blood Pressure 109/61 123/59 104/51 Blood Pressure [Right Arm] O2 Sat by Pulse 93 L 95 94 L Oximetry 04/30/16 04/30/16 04/30/16 11:00 11:17 11:32 Temperature Pulse Rate 71 78 78 Pulse Rate [ Expense Clerk ] Respiratory 18 Rate Blood Pressure 115/58 Blood Pressure [Right Arm] O2 Sat by Pulse 97 Oximetry Labs: Short CBC 04/30/16 Range/Units 05:25 WBC 11.7 H (3.8-10.6) k/uL Hgb 8.9 L (13.0-17.5) gm/dL Hct 28.9 L (39.0-53.0) % Plt Count 292 (150-450) k/uL Neutrophils # 9.6 H (1.3-7.7) k/uL BMP 04/29/16 04/30/16 14:00 05:25 Sodium 149 H Potassium 3.9 3.6 Chloride 112 H Carbon Dioxide 27 BUN 34 H Creatinine 0.93 Glucose 114 H Calcium 8.2 L IV Fluids: D5W at 50 mL per hour, amiodarone drip at 0.5 mg/min Lungs: Respirations are even and nonlabored, breath sounds are diminished. O2 sat: 97% on 4 L of oxygen delivered via nasal cannula. I/S: 500 mL. Reinforced the importance of regular use of the incentive spirometer. Patient gave return demonstration of correct use of the incentive spirometer after a small amount of coaching and verbalized his understanding of the importance and intent to make regular use of it. Heart: S1S2, bedside telemetry shows atrial fibrillation with a rapid ventricular response of about 110-120. Sternum: stable, chest incision clean with dressing clean and dry. Right knee harvest site clean and dry. Right groin wound shows some improvement. Abdomen: Large, Soft, Positive bowel sounds present in all 4 quadrants. CBGs: 118-145 mg/dL U/O: 720 mL over the last 12 hours via Nava catheter to dependent drainage. Intake & Output 04/28/16 04/29/16 04/30/16 05/01/16 06:59 06:59 06:59 06:59 Intake Total 8324 292 7145.500 250 Output Total 2090 1092 1350 310 Balance -715 -881 995.500 -60 Weight 128.9 kg 128.9 kg 124.8 kg Active Medications Acetaminophen (Tylenol Tab) 650 mg PO Q6HR PRN PRN Reason: Fever and/ or Pain Last Admin: 04/26/16 20:43 Dose: 650 mg Acetaminophen/Hydrocodone Bitart ([place] 5-325) 2 each PO Q4HR PRN PRN Reason: Severe Pain Last Admin: 04/25/16 12:16 Dose: 2 each Acetaminophen/Hydrocodone Bitart ([place] 5-325) 1 each PO Q4HR PRN PRN Reason: Moderate Pain Last Admin: 04/28/16 04:05 Dose: 1 each Acetylcysteine (Mucomyst) 200 mg INHALATION RT-QID [facility] Last Admin: 04/30/16 11:15 Dose: 200 mg Albuterol/Ipratropium (Duoneb 0.5 Mg-3 Mg/3 Ml Soln) 3 ml INHALATION RT-Q2H PRN PRN Reason: Shortness Of Breath Or Wheezing Albuterol/Ipratropium (Duoneb 0.5 Mg-3 Mg/3 Ml Soln) 3 ml INHALATION RT-QID [facility] Last Admin: 04/30/16 11:15 Dose: 3 ml Amoxicillin/Clavulanate Potassium (Augmentin 875-125) 1 each PO Q12HR [facility] Last Admin: 04/29/16 21:41 Dose: 1 each Aspirin (Aspirin) 81 mg PO DAILY [facility] Last Admin: 04/29/16 08:26 Dose: 81 mg Atorvastatin Calcium (Lipitor) 40 mg PO DAILY [facility] Last Admin: 04/29/16 08:26 Dose: 40 mg Bacitracin (Bacitracin Oint) 1 applic TOPICAL BID [facility] Last Admin: 04/29/16 21:41 Dose: 1 applic Benzocaine/Menthol (Cepacol Lozenge) 1 each MUCOUS MEM Q4HR PRN PRN Reason: Sore Throat Last Admin: 04/30/16 08:33 Dose: 1 each Bisacodyl (Dulcolax) 10 mg RECTAL DAILY PRN PRN Reason: Constipation Last Admin: 04/25/16 12:41 Dose: 10 mg Clopidogrel Bisulfate (Plavix) 75 mg PO DAILY [facility] Last Admin: 04/29/16 08:26 Dose: 75 mg Docusate Sodium (Colace Oral Soln) 100 mg PO DAILY [facility] Last Admin: 04/29/16 08:42 Dose: Not Given Heparin Sodium (Porcine) (Heparin) 5,000 unit SQ Q8HR [facility] Last Admin: 04/30/16 08:33 Dose: 5,000 unit Dextrose/Water (Dextrose 5%-Water Iv Soln) 1,000 mls @ 50 mls/hr IV .Q20H [facility] Last Admin: 04/30/16 08:32 Dose: 50 mls/hr Amiodarone HCl 450 mg/ (Dextrose/Water) 259 mls @ 34.53 mls/hr IV .Q7H31M ADAM; 1 MG/MIN PRN Reason: Protocol Stop: 04/30/16 13:58 Last Admin: 04/30/16 06:35 Dose: Not Given Insulin Human Lispro (Humalog) 0 unit SQ Q6H [facility] PRN Reason: Protocol Last Admin: 04/30/16 06:35 Dose: Not Given Lisinopril (Zestril) 2.5 mg PO DAILY [facility] Last Admin: 04/29/16 08:27 Dose: 2.5 mg Magnesium Hydroxide (Milk Of Magnesia) 2,400 mg PO BID PRN PRN Reason: Constipation Last Admin: 04/24/16 20:33 Dose: 2,400 mg Metoprolol Tartrate (Lopressor) 50 mg PO TID [facility] Last Admin: 04/29/16 21:41 Dose: 50 mg Miscellaneous Information (Magnesium Per Protocol) 1 each MISCELLANE DAILY PRN ; Protocol PRN Reason: Per Protocol Miscellaneous Information (Phosphorus Per Protocol) 1 each MISCELLANE DAILY PRN ; Protocol PRN Reason: Per Protocol Miscellaneous Information (Potassium Per Protocol) 1 each MISCELLANE DAILY PRN ; Protocol PRN Reason: Per Protocol Ondansetron HCl (Zofran) 4 mg IVP Q6HR PRN PRN Reason: Nausea And Vomiting Pantoprazole Sodium (Protonix) 40 mg IVP DAILY [facility] Last Admin: 04/29/16 08:28 Dose: 40 mg Plan: Status post CABG aVR preoperative postop day #12. Slow progress. Patient to have modified barium swallow this afternoon to evaluate swallowing mechanism. If swallow shows aspiration patient will need supplemental feedings to a nasogastric tube or core track. Continue aggressive pulmonary toilet Continue physical therapy to increase endurance and strength. <Vineet Meade - Last Filed: 04/30/16 18:27> Progress Note - Text I agree with the above assessment and plan. The patient did show some aspiration with thin liquids during his swallow evaluation this afternoon. He is currently tolerating thickened liquids. He would likely benefit from a Dobbhoff tube for both nutrition and free water given his hypernatremia. He is currently in normal sinus rhythm. His amiodarone was switched to pills today. If he develops another episode of atrial fibrillation that I believe he would benefit from anticoagulation. He remains quite debilitated and requires maximal assistance for transfers. If he remains stable overnight that I think he can be transferred to selective care in the morning.
--- NOTE | 2016-04-30 12:25 | FL ---
EXAMINATION TYPE: FL barium swallow w video DATE OF EXAM: 04/30/2016 12:15 PM COMPARISON: NONE HISTORY: Aspiration coughing up + TECHNIQUE: Fluoroscopy. FINDINGS: Fluoroscopic guidance was provided for the procedure performed in conjunction with the [facility] pathology department. Please see complete report forthcoming from the Speech Pathology departmen t. Various consistencies from thin liquid to solids were administered. There was aspiration with thin liquids. [place] thick liquids and aspiration. These were silent. There is improved swallowing with chin tuck with nectar thick liquids. Additional consistencies relatively normal although some penetration was noted with puree thick consistency. Pooling was noted within the vallecula. There is some hesitancy of the bolus formation. IMPRESSION: 1. Aspiration with thin and possibly nectar thick liquids. 2. Penetration was present with thin nectar thick as well as one episode of puree consistency.
[2016-04-30] MEDS: AMOXIC-POT CLAV 875-125MG 1 EACH TAB PO SCH ×2 (12:51→20:09)
[2016-04-30] MEDS: BACITRACIN 500 UNIT/GM OINT 28.4 GM TUBE TOPICAL SCH ×2 (12:52→20:09)
[2016-04-30] MEDS: DOCUSATE ORAL SOLN 100 MG/10 ML CUP PO SCH (12:52)
[2016-04-30] MEDS: CLOPIDOGREL 75 MG TAB PO SCH (12:52)
[2016-04-30] MEDS: ATORVASTATIN 40 MG TAB PO SCH (12:52)
[2016-04-30] MEDS: METOPROLOL TARTRATE 50 MG TAB PO SCH ×3 (12:52→21:08)
[2016-04-30] MEDS: ASPIRIN 81 MG CHEW PO SCH (12:52)
[2016-04-30] MEDS: PANTOPRAZOLE 40 MG/10 ML VIAL IVP SCH (12:53)
--- NOTE | 2016-04-30 13:11 | PN ---
DATE OF SERVICE: 04/29/2016 INTERVAL HISTORY: Mr. Mccracken is a 76-year-old male admitted to the hospital with ST elevated NC and was found to have a triple vessel coronary artery disease. The patient underwent coronary artery bypass graft and aortic valve replacement, postoperative day 11. The patient was successfully extubated currently feeling generally weak and very dehydrated with sodium level of 153. Patient ( ) swallow evaluation and otherwise patient will be continued on free water supplementation. Otherwise, the patient went into atrial fibrillation again last night and was continued on amiodarone now and with beta blockers. Otherwise, no fever, no chills. No acute overnight issues. Complete review of systems could not be obtained from the patient. CURRENT MEDICATIONS: Reviewed. PHYSICAL EXAMINATION: A 76-year-old male, lying on the bed, awake, alert, appears to be in no apparent distress. VITALS: Blood pressure is 110/64, pulse is 103, respirations 24, temperature afebrile, pulse ox 94% on 2 L nasal cannula. HEENT: Atraumatic, normocephalic. Neck is supple. No JVD. CVS: S1, S2 heard. No murmurs. No gallop. Basal crackles positive. Patient's surgical scar is intact. Chest tubes are intact. ABDOMEN: Soft, obese. Bowel sounds are present. 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 Appears to be in no apparent distress. No focal neurologic deficit. EXTREMITIES: No edema. Pulses palpable bilaterally. No clubbing or cyanosis. PSYCHIATRIC: Cooperative. LABORATORY DATA: WBC 10.9, hemoglobin 8.5, platelets 275. Sodium 153, potassium 3.8, chloride 115, bicarb is 28. BUN 32, creatinine 0.9. Magnesium 2.5. Calcium 8.3. Chest x-ray today showed overall stable exam with findings suggestive of congestive heart failure with pulmonary vascular congestion, continue the small left greater than right pleural effusions with adjacent atelectasis or consolidation. IMPRESSION: 1. Status post coronary artery bypass graft and aortic valve placement, postoperative day 11. 2. Acute hypoxic respiratory failure and cardiogenic shock status post post surgery, resolved now. 3. Hypernatremia due to poor oral intake and failed swallow evaluation. NG tube is being considered for free water intake. 4. Bilateral pleural effusion, improved. 5. Ischemic cardiomyopathy, ejection fraction 25% to 30%. 6. Chronic obstructive pulmonary disease. 7. Hypernatremia. 8. Morbid obesity with body mass index of 40.5. 9. Acute kidney injury ( ). 10. Questionable right atrial thrombus on echocardiogram initially. 11. Acute blood loss anemia secondary to recent surgery, stable now. 12. Benign prostatic hypertrophy. 13. Deep venous thrombosis prophylaxis with heparin subcu. 14. Eikenella species in sputum culture. DISCUSSION AND PLAN: Patient will be continued on current management including aspirin, beta blockers and Plavix. Lasix has been discontinued to dehydration. Will continue the antibiotics and patient was started on amiodarone due to atrial fibrillation. Cardiology and Pulmonary are following this patient. Will continue the current management. Further recommendations based on the clinical course. Follow up labs in the a.m.
[2016-04-30] MEDS: LISINOPRIL 2.5 MG TAB PO SCH (15:27)
[2016-04-30 16:55] LABS: Glucose,Whole Blood 118 mg/dL (75-99)
[2016-04-30] MEDS ORDERED: FUROSEMIDE 10 MG/ML 2 ML VIAL IV ONE (18:30)
--- NOTE | 2016-04-30 19:17 | P.PN ---
Subjective This 76-year-old gentleman was admitted with a non-ST elevation [place]. Subsequent evaluation was consistent with severe coronary artery disease and also moderate aortic stenosis. Patient underwent aortocoronary bypass surgery and also aortic valve replacement. Patient was on a respirator for a long time but has been extubated for the last 2-3 days. His lab work showed hypernatremia .His swallow evaluation today showed evidence of some aspiration of the free water. Patient is put on thickened liquids. He remains alert but seems to be frail. He has been maintaining sinus rhythm but has had bouts of atrial fibrillation. He is currently on amiodarone. Patient is not on and decortication therapy. If patient develops any further episodes of atrial fibrillation, patient will be put on anti-cognition therapy. Continue with incentive spirometry Objective - Vital Signs Vital signs: Vital Signs Temp 98.2 F 04/30/16 16:00 Pulse 86 04/30/16 19:00 Resp 18 04/30/16 19:00 BP 115/53 04/30/16 19:00 Pulse Ox 98 04/30/16 18:00 Intake & Output 04/30/16 04/30/16 05/01/16 06:59 18:59 06:59 Intake Total 1349.000 818.627 50 Output Total 395 755 25 Balance 954.000 63.627 25 Weight 124.8 kg Intake: IV 500 600 50 Dextrose 5% in Water 1, 500 600 50 000 ml @ 50 mls/hr IV . Q20H ADAM Rx#:[id number] Intake, IV Titration 309.000 218.627 Amount Amiodarone 450 mg In 259.000 218.627 Dextrose 5% in Water 250 ml @ 1 MG/MIN 34.53 mls/ hr IV .Q7H31M ADAM Rx#: [id number] Dextrose 5% in Water 1, 50 000 ml @ 50 mls/hr IV . Q20H ADAM Rx#:[id number] Oral 540 Output: Urine 395 755 25 Other: Voiding Method Indwelling Catheter Indwelling Catheter # Bowel Movements 1 ABP, PAP, CO, CI - Last Documented Arterial Blood Pressure 120/65 Pulmonary Artery Pressure 31/25 Cardiac Output 7 Cardiac Index 3.0 - Exam GENERAL EXAM: Patient is alert but appears to be frail HEENT: Normocephalic. Normal reaction of pupils, equal size, normal range of extraocular motion. No erythema or exudates in the throat. NECK: No masses, no nuchal rigidity. CHEST: No chest wall deformity. LUNGS: Diminished breath sounds HEART: S1 and S2 normal and distant heart sounds.. Irregular heart sounds ABDOMEN: No hepatosplenomegaly, normal bowel sounds, no guarding or rigidity. SKIN: No rashes CENTRAL NERVOUS SYSTEM: Alert without any gross focal deficits EXTREMITIES: No cyanosis, clubbing or edema. - Labs CBC & Chem 7: 04/30/16 05:25 04/30/16 05:25 Labs: Abnormal Lab Results - Last 24 Hours (Table) 04/29/16 04/30/16 04/30/16 Range/Units 23:48 05:21 05:25 WBC (3.8-10.6) k/uL RBC (4.30-5.90) m/uL Hgb (13.0-17.5) gm/dL Hct (39.0-53.0) % MCHC (31.0-37.0) g/dL Neutrophils # (1.3-7.7) k/uL Sodium (137-145) mmol/L Chloride (98-107) mmol/L BUN (9-20) mg/dL Glucose (74-99) mg/dL POC Glucose (mg/dL) 125 H 118 H (75-99) mg/dL Calcium (8.4-10.2) mg/dL Magnesium 2.4 H (1.6-2.3) mg/dL 04/30/16 04/30/16 04/30/16 Range/Units 05:25 05:25 11:42 WBC 11.7 H (3.8-10.6) k/uL RBC 2.98 L (4.30-5.90) m/uL Hgb 8.9 L (13.0-17.5) gm/dL Hct 28.9 L (39.0-53.0) % MCHC 30.7 L (31.0-37.0) g/dL Neutrophils # 9.6 H (1.3-7.7) k/uL Sodium 149 H (137-145) mmol/L Chloride 112 H (98-107) mmol/L BUN 34 H (9-20) mg/dL Glucose 114 H (74-99) mg/dL POC Glucose (mg/dL) 126 H (75-99) mg/dL Calcium 8.2 L (8.4-10.2) mg/dL Magnesium (1.6-2.3) mg/dL 04/30/16 Range/Units 16:53 WBC (3.8-10.6) k/uL RBC (4.30-5.90) m/uL Hgb (13.0-17.5) gm/dL Hct (39.0-53.0) % MCHC (31.0-37.0) g/dL Neutrophils # (1.3-7.7) k/uL Sodium (137-145) mmol/L Chloride (98-107) mmol/L BUN (9-20) mg/dL Glucose (74-99) mg/dL POC Glucose (mg/dL) 118 H (75-99) mg/dL Calcium (8.4-10.2) mg/dL Magnesium (1.6-2.3) mg/dL Assessment and Plan (1) Status post aorto-coronary artery bypass graft Status: Acute (2) NSTEMI (non-ST elevated myocardial infarction) Status: Acute (3) Cardiomyopathy Status: Acute (4) Congestive heart failure Status: Acute Plan: Patient is extubated. Has been having some issues with aspiration. They may put a Dobbhoff tube for nutrition. Continue rest of the medication. He is on by mouth amiodarone. Possible transfer to telemetry unit within next 24 hours.
[2016-04-30] MEDS: AMIODARONE 100 MG TAB PO SCH (20:09)
[2016-04-30 23:31] LABS: Glucose,Whole Blood 143 mg/dL (75-99)
[2016-05-01] MEDS: DEXTROSE 5% IN WATER 1,000 ML IV SCH (03:00)
[2016-05-01] MEDS: BENZOCAINE/MENTHOL LOZENG 1 EACH LOZENGE MUCOUS MEM PRN ×2 (03:10→15:08)
[2016-05-01 03:28] LABS: Basophils % (A) 0 %; CH 29.8; CHCM 31.1; Eosinophils # (A) 0.2 k/uL (0-0.7); Eosinophils % (A) 2 %; HCT 27.6 % (39.0-53.0); HDW 3.48; HGB 8.4 gm/dL (13.0-17.5); Hypochromasia Moderate; Luc # (Auto) 0.17; Luc % (Auto) 2; Lymphocytes # (A) 1.4 k/uL (1.0-4.8); Lymphocytes % (A) 13 %; MCH 29.4 pg (25.0-35.0); MCHC 30.4 g/dL (31.0-37.0); MCV 96.6 fL (80.0-100.0); Mean Platelet Volume 8.1; Monocytes # (A) 0.5 k/uL (0-1.0); Monocytes % (A) 5 %; Neutrophils # (A) 8.2 k/uL (1.3-7.7); Neutrophils % (A) 78 %; Poikilocytosis Slight; RBC 2.86 m/uL (4.30-5.90); RDW 15.5 % (11.5-15.5); WBC 10.5 k/uL (3.8-10.6); WBC (Perox) 10.84
[2016-05-01 03:38] LABS: Anion Gap 9 mmol/L; Blood Urea Nitrogen 29 mg/dL (9-20); Calcium 8.1 mg/dL (8.4-10.2); Carbon Dioxide 26 mmol/L (22-30); Chloride 110 mmol/L (98-107); Glucose 108 mg/dL (74-99); Magnesium 2.2 mg/dL (1.6-2.3); Non-African American GFR(MDRD) >60 (>60 ml/min/1.73 sqM); Phosphorous 3.2 mg/dL (2.5-4.5); Potassium 3.7 mmol/L (3.5-5.1); Sodium 145 mmol/L (137-145)
[2016-05-01] MEDS ORDERED: POTASSIUM CHLORIDE ORAL LIQUID 40 MEQ/30 ML CUP NG-TUBE SCH (05:00)
[2016-05-01 05:19] LABS: Glucose,Whole Blood 114 mg/dL (75-99)
[2016-05-01] MEDS: INSULIN LISPRO (humaLOG) 300 UNIT/3 ML VIAL SQ SCH ×4 (05:19→23:29)
--- NOTE | 2016-05-01 07:54 | XR ---
EXAMINATION TYPE: XR chest 1V portable DATE OF EXAM: 05/01/2016 6:46 AM COMPARISON: 04/30/2016 HISTORY: Status post CABG FINDINGS: There are bilateral pleural effusions with cardiomegaly and bibasilar infiltrate. There is a diffuse interstitial pattern. Postsurgical change and PICC line noted. IMPRESSION: 1. Stable bilateral infiltrate and pleural effusion. Correlate for CHF.
[2016-05-01] MEDS: ACETYLCYSTEINE 800 MG/4 ML VIAL INHALATION SCH ×4 (08:01→19:23)
[2016-05-01] MEDS: IPRATROPIUM-ALBUTEROL 3 ML NEB INHALATION SCH ×4 (08:01→19:23)
[2016-05-01] MEDS: HEPARIN SODIUM,PORCINE 5,000 UNIT/ML 1 ML VIAL SQ SCH ×3 (09:19→23:29)
[2016-05-01] MEDS: AMIODARONE 100 MG TAB PO SCH ×2 (09:19→19:49)
[2016-05-01] MEDS: AMOXIC-POT CLAV 875-125MG 1 EACH TAB PO SCH ×2 (09:23→20:01)
[2016-05-01] MEDS: ASPIRIN 81 MG CHEW PO SCH (09:23)
[2016-05-01] MEDS: ATORVASTATIN 40 MG TAB PO SCH (09:23)
[2016-05-01] MEDS: BACITRACIN 500 UNIT/GM OINT 28.4 GM TUBE TOPICAL SCH ×2 (09:23→19:50)
[2016-05-01] MEDS: LISINOPRIL 2.5 MG TAB PO SCH (09:24)
[2016-05-01] MEDS: DOCUSATE ORAL SOLN 100 MG/10 ML CUP PO SCH (09:24)
[2016-05-01] MEDS: METOPROLOL TARTRATE 50 MG TAB PO SCH ×3 (09:24→19:50)
[2016-05-01] MEDS: CLOPIDOGREL 75 MG TAB PO SCH (09:24)
[2016-05-01] MEDS: PANTOPRAZOLE 40 MG/10 ML VIAL IVP SCH (09:25)
--- NOTE | 2016-05-01 10:16 | P.PN ---
Progress Note - Text CV Surgery Nursing POD: #13, triple-vessel coronary artery bypass grafting utilizing left internal mammary artery to left anterior descending coronary artery and reverse saphenous vein grafts to the posterior descending coronary artery and ramus intermedius coronary artery. Aortic valve replacement using a 25 mm pericardial bioprosthesis. Endoscopic vein harvesting of the right greater saphenous vein. Intraoperative transesophageal echocardiogram and epi-aortic ultrasonography. #13, reexploration for postoperative bleeding. Patient awake and alert, no acute distress noted, voice is hoarse, patient remains weak but with some slight progress. Vital Signs: Afebrile, T-max 98.4F Vital Signs - 24 hr 04/30/16 04/30/16 04/30/16 11:00 11:15 11:17 Temperature Pulse Rate 71 74 78 Respiratory 18 25 H Rate Blood Pressure 115/58 115/58 O2 Sat by Pulse 97 96 Oximetry 04/30/16 04/30/16 04/30/16 11:30 11:32 11:45 Temperature Pulse Rate 80 78 78 Respiratory 31 H 32 H Rate Blood Pressure 106/58 106/58 O2 Sat by Pulse 98 Oximetry 04/30/16 04/30/16 04/30/16 12:00 12:15 12:30 Temperature 97.6 F Pulse Rate 86 80 Respiratory 26 H 21 28 H Rate Blood Pressure 106/58 95/44 O2 Sat by Pulse 93 L Oximetry 04/30/16 04/30/16 04/30/16 13:00 13:30 14:00 Temperature Pulse Rate 82 89 84 Respiratory 33 H 17 51 H Rate Blood Pressure 95/44 105/58 105/58 O2 Sat by Pulse 98 94 L 96 Oximetry 04/30/16 04/30/16 04/30/16 14:30 15:00 16:00 Temperature 98.2 F Pulse Rate 80 87 77 Respiratory 17 26 H 17 Rate Blood Pressure 105/62 105/62 114/53 O2 Sat by Pulse 99 97 97 Oximetry 04/30/16 04/30/16 04/30/16 16:38 16:52 17:00 Temperature Pulse Rate 99 96 88 Respiratory 18 Rate Blood Pressure 111/57 O2 Sat by Pulse 100 94 L Oximetry 04/30/16 04/30/16 04/30/16 18:00 19:00 19:26 Temperature Pulse Rate 87 86 80 Respiratory 18 18 Rate Blood Pressure 100/54 115/53 O2 Sat by Pulse 98 Oximetry 04/30/16 04/30/16 04/30/16 19:42 20:00 21:00 Temperature 97.6 F Pulse Rate 85 88 76 Respiratory 20 18 Rate Blood Pressure 114/55 115/59 O2 Sat by Pulse 96 96 Oximetry 04/30/16 04/30/16 04/30/16 22:00 23:00 23:24 Temperature Pulse Rate 71 71 79 Respiratory 22 20 18 Rate Blood Pressure 110/53 85/68 92/46 O2 Sat by Pulse 96 98 98 Oximetry 05/01/16 05/01/16 05/01/16 00:00 01:00 02:00 Temperature 98.4 F Pulse Rate 72 74 75 Respiratory 22 24 21 Rate Blood Pressure 99/55 100/47 114/65 O2 Sat by Pulse 96 97 95 Oximetry 05/01/16 05/01/16 05/01/16 03:00 04:00 05:00 Temperature 98.2 F Pulse Rate 78 75 81 Respiratory 21 28 H 22 Rate Blood Pressure 127/76 134/49 124/61 O2 Sat by Pulse 93 L 95 90 L Oximetry 05/01/16 05/01/16 05/01/16 06:00 07:00 08:00 Temperature 98.3 F Pulse Rate 74 78 79 Respiratory 22 21 19 Rate Blood Pressure 120/55 106/57 92/48 O2 Sat by Pulse 98 97 94 L Oximetry 05/01/16 05/01/16 05/01/16 08:01 08:22 09:00 Temperature Pulse Rate 82 79 92 Respiratory 19 Rate Blood Pressure 99/52 O2 Sat by Pulse 91 L Oximetry Labs: Short CBC 05/01/16 Range/Units 03:20 WBC 10.5 (3.8-10.6) k/uL Hgb 8.4 L (13.0-17.5) gm/dL Hct 27.6 L (39.0-53.0) % Plt Count 247 (150-450) k/uL Neutrophils # 8.2 H (1.3-7.7) k/uL BMP 05/01/16 03:20 Sodium 145 Potassium 3.7 Chloride 110 H Carbon Dioxide 26 BUN 29 H Creatinine 0.90 Glucose 108 H Calcium 8.1 L IV Fluids: D5W at 50 mL/h Lungs: Respirations are even and nonlabored, breath sounds slightly diminished bilateral bases. O2 sat: 94% on 4 L of oxygen delivered via nasal cannula Heart: S1S2, regular rate and rhythm. Bedside telemetry shows a normal sinus rhythm with occasional premature atrial contractions. Sternum: stable, chest incision clean with dressing clean and dry. Right leg harvest site clean and dry, healing well. Right groin wound improving. Abdomen: Soft, Positive bowel sounds present in all 4 quadrants. CBGs: 114-143 mg/dL U/O: 1290 mL urine output over the last 12 hours via Nava catheter to dependent drainage. Intake & Output 04/29/16 04/30/16 05/01/16 05/02/16 06:59 06:59 06:59 06:59 Intake Total 211 2345.500 1828.627 100 Output Total 1092 1350 2045 75 Balance -881 995.500 -216.373 25 Weight 128.9 kg 124.1 kg Active Medications Acetaminophen (Tylenol Tab) 650 mg PO Q6HR PRN PRN Reason: Fever and/ or Pain Last Admin: 04/26/16 20:43 Dose: 650 mg Acetaminophen/Hydrocodone Bitart ([place] 5-325) 2 each PO Q4HR PRN PRN Reason: Severe Pain Last Admin: 04/25/16 12:16 Dose: 2 each Acetaminophen/Hydrocodone Bitart ([place] 5-325) 1 each PO Q4HR PRN PRN Reason: Moderate Pain Last Admin: 04/28/16 04:05 Dose: 1 each Acetylcysteine (Mucomyst) 200 mg INHALATION RT-QID [facility] Last Admin: 05/01/16 08:01 Dose: 200 mg Albuterol/Ipratropium (Duoneb 0.5 Mg-3 Mg/3 Ml Soln) 3 ml INHALATION RT-Q2H PRN PRN Reason: Shortness Of Breath Or Wheezing Albuterol/Ipratropium (Duoneb 0.5 Mg-3 Mg/3 Ml Soln) 3 ml INHALATION RT-QID [facility] Last Admin: 05/01/16 08:01 Dose: 3 ml Amiodarone HCl (Cordarone) 300 mg PO BID [facility] Last Admin: 05/01/16 09:19 Dose: 300 mg Amoxicillin/Clavulanate Potassium (Augmentin 875-125) 1 each PO Q12HR [facility] Last Admin: 05/01/16 09:23 Dose: 1 each Aspirin (Aspirin) 81 mg PO DAILY [facility] Last Admin: 05/01/16 09:23 Dose: 81 mg Atorvastatin Calcium (Lipitor) 40 mg PO DAILY [facility] Last Admin: 05/01/16 09:23 Dose: 40 mg Bacitracin (Bacitracin Oint) 1 applic TOPICAL BID [facility] Last Admin: 05/01/16 09:23 Dose: 1 applic Benzocaine/Menthol (Cepacol Lozenge) 1 each MUCOUS MEM Q4HR PRN PRN Reason: Sore Throat Last Admin: 05/01/16 03:10 Dose: 1 each Bisacodyl (Dulcolax) 10 mg RECTAL DAILY PRN PRN Reason: Constipation Last Admin: 04/25/16 12:41 Dose: 10 mg Clopidogrel Bisulfate (Plavix) 75 mg PO DAILY [facility] Last Admin: 05/01/16 09:24 Dose: 75 mg Docusate Sodium (Colace Oral Soln) 100 mg PO DAILY [facility] Last Admin: 05/01/16 09:24 Dose: Not Given Heparin Sodium (Porcine) (Heparin) 5,000 unit SQ Q8HR [facility] Last Admin: 05/01/16 09:19 Dose: 5,000 unit Dextrose/Water (Dextrose 5%-Water Iv Soln) 1,000 mls @ 50 mls/hr IV .Q20H [facility] Last Admin: 05/01/16 03:00 Dose: 50 mls/hr Insulin Human Lispro (Humalog) 0 unit SQ Q6H [facility] PRN Reason: Protocol Last Admin: 05/01/16 05:19 Dose: Not Given Lisinopril (Zestril) 2.5 mg PO DAILY [facility] Last Admin: 05/01/16 09:24 Dose: Not Given Magnesium Hydroxide (Milk Of Magnesia) 2,400 mg PO BID PRN PRN Reason: Constipation Last Admin: 04/24/16 20:33 Dose: 2,400 mg Metoprolol Tartrate (Lopressor) 50 mg PO TID [facility] Last Admin: 05/01/16 09:24 Dose: 50 mg Miscellaneous Information (Magnesium Per Protocol) 1 each MISCELLANE DAILY PRN ; Protocol PRN Reason: Per Protocol Miscellaneous Information (Phosphorus Per Protocol) 1 each MISCELLANE DAILY PRN ; Protocol PRN Reason: Per Protocol Miscellaneous Information (Potassium Per Protocol) 1 each MISCELLANE DAILY PRN ; Protocol PRN Reason: Per Protocol Ondansetron HCl (Zofran) 4 mg IVP Q6HR PRN PRN Reason: Nausea And Vomiting Pantoprazole Sodium (Protonix) 40 mg IVP DAILY [facility] Last Admin: 05/01/16 09:25 Dose: 40 mg Plan: Status post CABG, AVR, reoperative bleed day #13. Slow steady progress. Results of video swallow exam noted, patient tolerating thickened liquids without problems. Sodium is normalized. Rhythm is currently stable. Continue to increase activity, according to nursing staff patient is resistant to increased activity. Physical therapy interventions are integral. Transfer to stepdown. Continue aggressive pulmonary toilet. Will keep pacemaker wires 1 more day discontinued tomorrow if rhythm remained stable. Will keep Nava due to penile edema.
--- NOTE | 2016-05-01 11:07 | P.PN ---
Subjective This is a 76-year-old patient who was admitted back on April 13 with a diagnosis of non-ST segment elevation myocardial infarction and shortness of breath. The patient went to the [facility] on April 15 and was found to have three-vessel disease with aortic stenosis. On the , the patient went to the operating room and had a three-vessel bypass grafting and aortic valve replacement. Today's postop day #12. The patient also to go back to the or on the same day for bleeding. In addition, the patient has had 4 bronchoscopies for lung collapse and retained secretions. He was finally extubated on the . The patient has had difficulty swallowing and is been some concerns about chronic aspiration. Going for a modified barium swallow today. The patient's currently on 4 L nasal cannula and IV of D5W at 50 mL now and Cordarone 0.5 mg/m for his atrial fibrillation. In addition to his three-vessel bypass grafting aortic valve replacement for aortic stenosis, the patient has a history of ventilator dependent respiratory failure with ultimate extubation on April 26, CAD, heart failure, scoliosis, benign prostatic hypertrophy, hyperlipidemia, DJD, acute kidney injury, obesity , and postoperative anemia. Progress note dated 05/01/2016 This is a 76-year-old gentleman who continues to show slow improvement. He is currently on O2 at 4 L nasal cannula. He is getting a D5.45 IV at 50 mL an hour. The patient was admitted way back on April 13 with a diagnosis of non- ST segment elevation myocardial infarction. The patient a three-vessel bypass grafting aortic valve replacement for aortic stenosis. He was extubated on April 26. Objective - Vital Signs Vital signs: Vital Signs Temp 98.3 F 05/01/16 08:00 Pulse 92 05/01/16 09:00 Resp 19 05/01/16 09:00 BP 99/52 05/01/16 09:00 Pulse Ox 91 L 05/01/16 09:00 Intake & Output 04/30/16 05/01/16 05/01/16 18:59 06:59 18:59 Intake Total 001.504 0645 100 Output Total 755 1290 75 Balance 63.627 -280 25 Weight 124.8 kg 124.1 kg Intake: IV 600 650 100 Dextrose 5% in Water 1, 600 650 100 000 ml @ 50 mls/hr IV . Q20H [facility] Rx#:[id number] Intake, IV Titration 218.627 Amount Amiodarone 450 mg In 218.627 Dextrose 5% in Water 250 ml @ 1 MG/MIN 34.53 mls/ hr IV .Q7H31M [facility] Rx#: [id number] Oral 360 Output: Urine 755 1290 75 Other: Voiding Method Indwelling Catheter Indwelling Catheter Indwelling Catheter ABP, PAP, CO, CI - Last Documented Arterial Blood Pressure 120/65 Pulmonary Artery Pressure 31/25 Cardiac Output 7 Cardiac Index 3.0 - Exam No acute distress, oriented 3. HEENT examination is grossly unremarkable. Mucous membranes are moist. Supple. Full range of motion. No adenopathy. Cardiovascular examination reveals regular rhythm rate. S1-S2 normal. No S3- S4. No murmur. Next Lungs reveal bibasilar crackles. Abdomen soft bowel sounds are heard. Extremities are intact. - Labs CBC & Chem 7: 05/01/16 03:20 05/01/16 03:20 Labs: Abnormal Lab Results - Last 24 Hours (Table) 04/30/16 04/30/16 04/30/16 Range/Units 11:42 16:53 23:30 RBC (4.30-5.90) m/uL Hgb (13.0-17.5) gm/dL Hct (39.0-53.0) % MCHC (31.0-37.0) g/dL Neutrophils # (1.3-7.7) k/uL Chloride (98-107) mmol/L BUN (9-20) mg/dL Glucose (74-99) mg/dL POC Glucose (mg/dL) 126 H 118 H 143 H (75-99) mg/dL Calcium (8.4-10.2) mg/dL 05/01/16 05/01/16 05/01/16 Range/Units 03:20 03:20 05:17 RBC 2.86 L (4.30-5.90) m/uL Hgb 8.4 L (13.0-17.5) gm/dL Hct 27.6 L (39.0-53.0) % MCHC 30.4 L (31.0-37.0) g/dL Neutrophils # 8.2 H (1.3-7.7) k/uL Chloride 110 H (98-107) mmol/L BUN 29 H (9-20) mg/dL Glucose 108 H (74-99) mg/dL POC Glucose (mg/dL) 114 H (75-99) mg/dL Calcium 8.1 L (8.4-10.2) mg/dL Microbiology - Last 24 Hours (Table) 04/20/16 10:30 Acid Fast Bacilli Smear - Final Bronchoalviolar Lavage - Right Acid Fast Bacilli Culture - Preliminary Assessment and Plan Plan: Plan dated 04/30/2016 The patient will go for a modified barium swallow. Ex The patient currently remains on his IV Cordarone at 0.5 mg/m. The patient's are reasonably stable. The patient has an overall guarded prognosis. Additional recommendations suggestions are forthcoming. Plan dated 05/01/2016 The patient did fail his modified barium swallow from yesterday. He continues to BMP O. The patient will continue to be maintained here in the ICU is guarded. Medications ALLERGIES x-rays and so forth are reviewed. Time with Patient: Less than 30
--- NOTE | 2016-05-01 11:27 | PN ---
DATE OF SERVICE: 04/30/2016 INTERVAL HISTORY: Mr. Mccracken is a 76-year-old male, admitted to the hospital with ST-elevation CO and found to have triple vessel coronary artery disease and underwent coronary artery bypass, on postop day 12, patient was actually extubated and currently saturating well on room air. Chest tubes have been discontinued. Otherwise, patient went back into atrial fibrillation today and was started on amiodarone. Patient is back to sinus rhythm this afternoon. Otherwise, patient is not tolerating p.o. diet and has barium swallow evaluation done and started on honey-thickened liquids. Sodium level is improving now. Otherwise, currently patient is resting comfortably, no acute overnight, issues. No fever. No chills. Patient was given a dose of IV Lasix today. Complete review of systems could not be obtained on the patient. Current medications include Tylenol, [place] 5-325, Mucomyst, DuoNeb, cortisone, Augmentin, aspirin, Lipitor, bacitracin, Cepacol, Dulcolax, Plavix, dextrose water, docusate, heparin subQ, insulin lispro, lisinopril, magnesium hydroxide, Lopressor, Zofran, Protonix. PHYSICAL EXAMINATION: A 76-year-old male lying in the bed comfortably. Awake, alert, oriented x1 to 2. Patient in no apparent distress. VITALS: Blood pressure is 114/55, pulse is 88, respirations 20, temperature afebrile, pulse ox 96% on 4 L nasal cannula. HEENT: Atraumatic, normocephalic. Neck is supple. No JVD. CVS EXAM: S1, S2 heard. No murmurs, no gallop. Pulse is irregular. LUNGS: Bilateral decreased air entry bilateral basally. Basilar crackles positive only. Nonlabored breathing. No wheezing. ABDOMEN: Soft, obese. Bowel sounds are present. [employer]: Awake, alert, oriented x2. Able to move all his extremities. EXTREMITIES: Trace edema. Pulses bilaterally, no clubbing or cyanosis. PSYCHIATRIC: Cooperative, could not evaluated completely. LABORATORY DATA: WBC 11.7, hemoglobin 8.9, platelets 292. Sodium 149, potassium of 3.3, chloride 112, bicarb is 27, BUN 34, creatinine 0.93, magnesium 2.4. Chest x-ray today showed diffuse increase in lung markings, can be compatible with some pulmonary edema, small bilateral pleural effusions are present. IMPRESSION: 1. Status post coronary artery bypass graft and aortic valve replacement, postoperative day 11. 2. Status post hypoxic respiratory failure post surgery and cardiogenic shock, resolved now. 3. Hypernatremia due to poor oral intake and failed swallow evaluation. Patient underwent barium swallow today and started on honey-thickened liquids. 4. Atrial fibrillation converted to sinus rhythm now. 5. Bilateral pleural effusions. 6. Ischemic cardiomyopathy, ejection fraction 25% to 30%. 7. Chronic obstructive pulmonary disease. 8. Hypernatremia, improving. 9. Acute kidney injury, most likely prerenal. 10. Morbid obesity with a body mass index of 40.5. 11. Questionable right atrial thrombus on echocardiogram initially. 12. Acute blood loss anemia, secondary to surgery, stable now. 13. Benign prostatic hypertrophy. 14. Deep venous thrombosis prophylaxis with heparin subcutaneous. 15. Eikenella species in the sputum culture. RECOMMENDATION AND PLAN: Patient will continue with the current management including aspirin, beta blockers and Plavix and patient was given a dose of Lasix today due to chest x-ray finding of a possible pulmonary edema and continue with honey-thickened liquids and continue with the hydration and follow up ( ) and patient was also started on amiodarone. Cardiology, Pulmonary and CT Surgery is following this patient. Further recommendations based on clinical course. Prognosis guarded.
[2016-05-01 11:53] LABS: Glucose,Whole Blood 119 mg/dL (75-99)
--- NOTE | 2016-05-01 16:25 | P.CONS ---
History of Present Illness - Chief Complaint Cardiac debility - History of Present Illness I had the opportunity to see patient for inpatient rehab consultation with regard to cardiac debility. The patient was admitted to [facility] April 13 with CHF and non-STEMI. Seen by Dr. mendoza you're E who did perform coronary bypass and aortic valve replacement. Has had extended ICU stay for CHF and bilateral infiltrates. Serial chest x-rays followed. Should mention admission chest CTA negative for PE. PT, OT, ST prescribed. PT reports 3 person assistance for transfers and patient does reinforces, 3 person for bed to chair. Speech reports modified barium swallow done and recommend. And honey thickened. Previous functional history: As elicited from patient. 76-year-old right- handed male who lives in a 1 floor home with . Retired. does the cooking and laundry. Patient independent with driving, sitdown shower and gait with 4 wheeled walker. Regular doctor is the [place] [facility]. Family history father was a smoker and had cancer. Review of Systems Review of systems: General: Overweight. ENT: Denies sneezes or discharge. Eyes: Denies discharge or photophobia. Cardiac: Denies chest pain or palpitation. Pulmonary: Mild shortness of breath. Gastrointestinal: Denies nausea, emesis, constipation, diarrhea. Genitourinary: Denies discharge or frequency. Musculoskeletal: Denies muscle or bone aches. Neurologic: Admits to at least mild bilateral weakness. Endocrine: Denies shakes or sweats. Oncology: Denies cancers. Dermatologic: Denies rash, itching, pruritus. ALLERGY/immunology: Denies sneezes, rashes. Past Medical History Past Medical History: Hyperlipidemia, Osteoarthritis (OA), Prostate Disorder Additional Past Medical History / Comment(s): Obesity, scoliosis of the spine, BPH, chronic back pain, osteoarthritis, hyperlipidemia History of Any Multi-Drug Resistant Organisms: None Reported Past Surgical History: Joint Replacement Additional Past Surgical History / Comment(s): bilateral knee replacement, cataract removal, cardiac catheterization this admission Past Psychological History: No Psychological Hx Reported Smoking Status: Former smoker Past Alcohol Use History: Occasional Past Drug Use History: None Reported Medications and Allergies Home Medications Medication Instructions Recorded Confirmed Type Aspirin 81 mg PO DAILY 04/13/16 04/13/16 History Cholecalciferol [Vitamin D3] 1,000 unit PO DAILY 04/13/16 04/13/16 History Cyanocobalamin [Vitamin B-12] 2,500 mcg PO DAILY 04/13/16 04/13/16 History Doxazosin [Cardura] 4 mg PO DAILY 04/13/16 04/13/16 History Finasteride [Proscar] 5 mg PO DAILY 04/13/16 04/13/16 History Meloxicam 15 mg PO DAILY 04/13/16 04/13/16 History Multivitamin [Men's Multi-Vitamin] 1 tab PO DAILY 04/13/16 04/13/16 History Niacin 500 mg PO DAILY 04/13/16 04/13/16 History [place]-3 Fatty Acids/Fish Oil [Fish 4 cap PO DAILY 04/13/16 04/13/16 History Oil 1,000 mg Softgel] Simvastatin [Zocor] 80 mg PO HS 04/13/16 04/13/16 History traMADol HCL [Ultram] 50 mg PO Q6HR PRN 04/13/16 04/13/16 History Allergies Allergy/AdvReac Type Severity Reaction Status Date / Time No Known Allergies Allergy Verified 04/13/16 14:06 Physical Exam Vitals: Vital Signs Temp Pulse Resp BP Pulse Ox 05/01/16 16:00 77 05/01/16 15:44 77 100 05/01/16 15:00 82 23 108/44 97 05/01/16 14:00 75 24 105/50 99 05/01/16 13:00 79 23 105/46 97 05/01/16 12:00 97.6 F 73 26 H 96/49 96 05/01/16 11:22 76 05/01/16 11:14 72 05/01/16 11:00 69 27 H 110/51 97 05/01/16 10:56 98 05/01/16 10:00 82 27 H 113/45 97 05/01/16 09:00 92 19 99/52 91 L 05/01/16 08:22 79 05/01/16 08:01 82 05/01/16 08:00 98.3 F 79 19 92/48 94 L 05/01/16 07:00 78 21 106/57 97 05/01/16 06:00 74 22 120/55 98 05/01/16 05:00 81 22 124/61 90 L 05/01/16 04:00 98.2 F 75 28 H 134/49 95 05/01/16 03:00 78 21 127/76 93 L 05/01/16 02:00 75 21 114/65 95 05/01/16 01:00 74 24 100/47 97 05/01/16 00:00 98.4 F 72 22 99/55 96 04/30/16 23:24 79 18 92/46 98 04/30/16 23:00 71 20 85/68 98 04/30/16 22:00 71 22 110/53 96 04/30/16 21:00 76 18 115/59 96 04/30/16 20:00 97.6 F 88 20 114/55 96 04/30/16 19:42 85 04/30/16 19:26 80 04/30/16 19:00 86 18 115/53 04/30/16 18:00 87 18 100/54 98 04/30/16 17:00 88 18 111/57 94 L 04/30/16 16:52 96 04/30/16 16:38 99 100 Intake and Output 05/01/16 05/01/16 05/01/16 06:59 14:59 22:59 Intake Total 570 350 50 Output Total 425 315 30 Balance 145 35 20 Intake: IV 450 350 50 Dextrose 5% in Water 1, 450 350 50 000 ml @ 50 mls/hr IV . Q20H [facility] Rx#:[id number] Oral 120 Output: Urine 425 315 30 Other: Voiding Method Indwelling Catheter Indwelling Catheter Weight 124.1 kg Skin: Good color, texture, turgor. General: Overweight and with fatigued affect. Head: Normocephalic, atraumatic. Eyes: Symmetric. Pupils equal round. Ears: Symmetric. Hearing within normal limits. Mouth: Clear. Neck: Supple. Carotid without bruit. Cardiac: Regular rate and rhythm. Lungs: Clear anteriorly and posteriorly. Abdomen: Soft active nontender, overweight. Extremities: Normal tone. Lower extremity edema a 2-3+ to knees. Neurological: Mental status: Alert, cooperative, pleasant. Cranial nerves: Symmetric facial tone and trapezius. Motor: Active movement all 4 limbs. Sensation: Intact throughout. DTRs: Absent throughout. Mobility: Sits and stands 3 person assistance. Results CBC & Chem 7: 05/01/16 03:20 05/01/16 03:20 Labs: Abnormal Lab Results - Last 24 Hours (Table) 04/30/16 04/30/16 05/01/16 Range/Units 16:53 23:30 03:20 RBC (4.30-5.90) m/uL Hgb (13.0-17.5) gm/dL Hct (39.0-53.0) % MCHC (31.0-37.0) g/dL Neutrophils # (1.3-7.7) k/uL Chloride 110 H (98-107) mmol/L BUN 29 H (9-20) mg/dL Glucose 108 H (74-99) mg/dL POC Glucose (mg/dL) 118 H 143 H (75-99) mg/dL Calcium 8.1 L (8.4-10.2) mg/dL 05/01/16 05/01/16 05/01/16 Range/Units 03:20 05:17 11:51 RBC 2.86 L (4.30-5.90) m/uL Hgb 8.4 L (13.0-17.5) gm/dL Hct 27.6 L (39.0-53.0) % MCHC 30.4 L (31.0-37.0) g/dL Neutrophils # 8.2 H (1.3-7.7) k/uL Chloride (98-107) mmol/L BUN (9-20) mg/dL Glucose (74-99) mg/dL POC Glucose (mg/dL) 114 H 119 H (75-99) mg/dL Calcium (8.4-10.2) mg/dL Microbiology - Last 24 Hours (Table) 04/26/16 22:10 Anaerobic Culture - Final Groin 04/20/16 10:30 Acid Fast Bacilli Smear - Final Bronchoalviolar Lavage - Right Acid Fast Bacilli Culture - Preliminary Chest x-ray: report reviewed (Serial chest x-rays followed for bilateral infiltrates, effusions, CHF.) Assessment and Plan (1) NSTEMI (non-ST elevated myocardial infarction) Status: Acute Plan: Impression: 1. Cardiac debility. 2. Morbid obesity with BMI of 40-49.9. 3. Non-STEMI. 4. CHF of bilateral pleural effusions. 5. Osteoarthritis. Comments and plan: At this time physical, occupational, speech therapies ordered. Occupational therapy appears to be working at a distance currently due to patient's poor endurance as documented by physical therapy. Because of poor endurance, rehab prognosis currently guarded. Currently would require 24- hour care multiple persons.
[2016-05-01 19:03] LABS: Glucose,Whole Blood 94 mg/dL (75-99)
[2016-05-01 20:38] LABS: Glucose,Whole Blood 126 mg/dL (75-99)
[2016-05-02 05:28] LABS: Glucose,Whole Blood 121 mg/dL (75-99)
[2016-05-02 05:32] LABS: Basophils # (A) 0.1 k/uL (0-0.2); Basophils % (A) 1 %; CH 29.7; CHCM 31.1; Eosinophils # (A) 0.2 k/uL (0-0.7); Eosinophils % (A) 3 %; HCT 29.5 % (39.0-53.0); HDW 3.47; HGB 8.8 gm/dL (13.0-17.5); Hypochromasia Moderate; Luc # (Auto) 0.16; Luc % (Auto) 2; Lymphocytes # (A) 1.5 k/uL (1.0-4.8); Lymphocytes % (A) 15 %; MCH 28.5 pg (25.0-35.0); MCHC 29.7 g/dL (31.0-37.0); MCV 95.8 fL (80.0-100.0); Mean Platelet Volume 7.9; Monocytes # (A) 0.5 k/uL (0-1.0); Monocytes % (A) 5 %; Neutrophils # (A) 7.1 k/uL (1.3-7.7); Neutrophils % (A) 75 %; Poikilocytosis Slight; RBC 3.08 m/uL (4.30-5.90); RDW 15.4 % (11.5-15.5); WBC 9.5 k/uL (3.8-10.6); WBC (Perox) 9.65
[2016-05-02 05:37] LABS: INR 1.2 (<1.1); Prothrombin Time 12.3 sec (9.0-12.0)
[2016-05-02 05:59] LABS: ALT 43 U/L (21-72); AST 34 U/L (17-59); Alkaline Phosphatase 118 U/L (38-126); Anion Gap 10 mmol/L; Blood Urea Nitrogen 22 mg/dL (9-20); Calcium 8.4 mg/dL (8.4-10.2); Carbon Dioxide 29 mmol/L (22-30); Chloride 110 mmol/L (98-107); Glucose 126 mg/dL (74-99); Magnesium 2.2 mg/dL (1.6-2.3); Non-African American GFR(MDRD) >60 (>60 ml/min/1.73 sqM); Phosphorous 3.5 mg/dL (2.5-4.5); Potassium 3.9 mmol/L (3.5-5.1); Sodium 149 mmol/L (137-145); Total Bilirubin 0.8 mg/dL (0.2-1.3); Total Protein 5.6 g/dL (6.3-8.2)
[2016-05-02] MEDS ORDERED: Potassium Replacement Protocol 1 EACH MISC MISCELLANE PRN (06:04)
[2016-05-02] MEDS: INSULIN LISPRO (humaLOG) 300 UNIT/3 ML VIAL SQ SCH ×4 (06:34→20:48)
[2016-05-02] MEDS ORDERED: POTASSIUM CHLORIDE ER 20 MEQ TAB.ER PO SCH (07:00)
[2016-05-02 07:41] LABS: Glucose,Whole Blood 94 mg/dL (75-99)
[2016-05-02] MEDS: ACETYLCYSTEINE 800 MG/4 ML VIAL INHALATION SCH (07:48)
[2016-05-02] MEDS: IPRATROPIUM-ALBUTEROL 3 ML NEB INHALATION SCH ×4 (07:48→20:11)
--- NOTE | 2016-05-02 08:16 | XR ---
EXAMINATION TYPE: XR chest 1V portable DATE OF EXAM: 05/02/2016 6:32 AM Comparison: 05/01/2016 Clinical History: 76-year-old male status post CABG, CHF Findings: Heart remains moderately enlarged. Median sternotomy wires are present with post-CABG changes in the mediastinum. Patient is rotated towards the right. Diffuse interstitial prominence and mid and lower lung airspace opacities. Hazy left greater than right basilar density also noted. Impression: 1. Continued findings suggesting CHF with some pulmonary edema. 2. Moderate left and small right pleural effusions with adjacent atelectasis and/or consolidation.
[2016-05-02] MEDS: AMIODARONE 100 MG TAB PO SCH ×2 (09:10→20:40)
[2016-05-02] MEDS: HEPARIN SODIUM,PORCINE 5,000 UNIT/ML 1 ML VIAL SQ SCH ×3 (09:10→23:25)
[2016-05-02] MEDS: LISINOPRIL 2.5 MG TAB PO SCH (09:10)
[2016-05-02] MEDS: METOPROLOL TARTRATE 50 MG TAB PO SCH ×3 (09:11→21:07)
[2016-05-02] MEDS: BACITRACIN 500 UNIT/GM OINT 28.4 GM TUBE TOPICAL SCH ×2 (09:11→20:40)
[2016-05-02] MEDS: PANTOPRAZOLE 40 MG TABLET PO SCH (09:11)
[2016-05-02] MEDS: AMOXIC-POT CLAV 875-125MG 1 EACH TAB PO SCH ×2 (09:11→20:40)
[2016-05-02] MEDS: CLOPIDOGREL 75 MG TAB PO SCH (09:11)
[2016-05-02] MEDS: ASPIRIN 81 MG CHEW PO SCH (09:11)
[2016-05-02] MEDS: ATORVASTATIN 40 MG TAB PO SCH (09:11)
[2016-05-02] MEDS: DOCUSATE ORAL SOLN 100 MG/10 ML CUP PO SCH (09:12)
--- NOTE | 2016-05-02 10:08 | PN ---
DATE OF SERVICE: 05/01/2016 This is a 76-year-old gentleman who was admitted after CAD, CABG with multiple complex medical issues and possibly acute respiratory failure, hyponatremia, and also an episode of atrial fibrillation. The patient's sensorium has improved significantly. Davis capacity appears to be significantly impaired at this time. The evaluation by Dr. Lerma is being made for possible inpatient rehabilitation. PAST MEDICAL HISTORY: Reviewed. REVIEW OF SYSTEMS: CARDIOVASCULAR: No angina, no palpitations. RESPIRATORY: Shortness of breath. Patient has had some difficulty in finishing sentences also. GI: No nausea. : No dysuria. NERVOUS SYSTEM: Diffuse weakness. Current medications are reviewed and include: 1. Tylenol 650 q.6. 2. [place] 5 mg q.4 p.r.n. 3. Mucomyst q.i.d. 4. DuoNeb q.i.d. and p.r.n. 5. Cordarone 200 mg b.i.d. 6. Augmentin 875 mg b.i.d. 7. Aspirin 81 mg. 8. Lipitor 40 mg. 9. Bacitracin. 10. Dulcolax. 11. Plavix 75 mg. 12. Heparin 5000 subQ q.8. 13. Milk of Magnesia. 14. Lopressor. 15. Zofran. 16. Protonix 40 mg p.o. daily. PHYSICAL EXAM: The patient is alert and oriented x3. Pulse is 71, blood pressure 123/63, respirations 30, temperature is normal, pulse ox 96% on 3 L. HEENT: Conjunctivae normal, oral mucosa moist. NECK: No jugular venous distension. CARDIOVASCULAR: S1, S2, muffled, no S3, no S4, ejection fraction is normal. RESPIRATORY: Breath sounds diminished at the bases, a few scattered rhonchi, no crackles. Abdomen is soft, obese, nontender. EXTREMITIES: Legs no edema, no swelling. NERVOUS SYSTEM: Diffusely weak. LABS: WBC is 10.5, hemoglobin is 8.4, Accu-Cheks noted. ASSESSMENT: 1. Status post coronary artery bypass grafting with aortic valve replacement, postoperative day 12. 2. Status post acute hypoxic respiratory failure, status post surgery and cardiogenic shock, resolved now. 3. Hypernatremia due to poor oral intake and failed swallow evaluation. 4. Atrial fibrillation currently paroxysmal, sinus rhythm now. 5. Bilateral pleural effusions. 6. Gait dysfunction. 7. Ischemic cardiomyopathy with ejection fraction of 25% to 30% with chronic systolic dysfunction. 8. Chronic obstructive pulmonary disease. 9. Hypernatremia, improving. 10. Acute kidney injury, possibly prerenal. 11. Acute tubular necrosis. 12. Morbid obesity with body mass index of 40.5. 13. Questionable right atrial thrombus on echo initially. 14. Acute blood loss anemia. 15. Benign prostatic hypertrophy. 16. Deep venous thrombosis prophylaxis. 17. Heparin subcutaneous. 18. Eikenella species from the sputum culture. 19. FULL CODE. RECOMMENDATION: Recommend to continue with the current medications. Continue with the monitoring and symptomatic treatment. Continue with the beta blockers. Continue with a single dose of diuretics, had one yesterday. Monitor fluid, advance closely. Continue with empiric antibiotics. Otherwise, PT, OT evaluation. I would also recommend consult with Dr. Lerma for possible inpatient rehab. Guarded prognosis. Further recommendations to follow.
--- NOTE | 2016-05-02 11:44 | P.PN ---
Subjective This is a very pleasant 76-year-old gentleman who follows with as his primary care physician along with the [facility]. He has a history of kyphoscoliosis of the thoracic spine, morbid obesity, severe degenerative arthritis. He denied any previous history of COPD/emphysema is a remote history of smoking quit 50 years ago. No prior history of coronary artery disease. He had presented here on 04/13/2016 with increasing shortness of breath and left arm pain. He had subsequent undergone undergone cardiac catheterization that revealed triple-vessel disease including left main disease. He also has impaired left ventricular systolic function with estimated ejection fraction of 20-25%. He had undergone coronary artery bypass grafting utilizing a PHAM to the LAD, reverse saphenous graft to the PDA, and ramus intermedius. He also received aortic valve replacement. He is seen again today 05/02/2016 in the ICU as a selective care overflow. He is awake and alert in no acute distress. He's been up ambulating with assistance. He does need increased encouragement regarding the use of the incentive spirometer and cough and deep breathing exercises. His chest x-ray continues to show some bilateral effusions. He still utilizing 4 L/m per nasal cannula keep O2 saturations greater than 90%. Denies any worsening shortness of breath, cough or congestion. Objective - Vital Signs Vital signs: Vital Signs Temp 98.3 F 05/02/16 04:00 Pulse 77 05/02/16 08:04 Resp 14 05/02/16 07:00 BP 122/66 05/02/16 07:00 Pulse Ox 94 L 05/02/16 07:00 Intake & Output 05/01/16 05/02/16 05/02/16 18:59 06:59 18:59 Intake Total 500 615 Output Total 530 515 610 Balance -30 100 -610 Weight 127.6 kg 127.6 kg Intake: IV 500 Dextrose 5% in Water 1, 500 000 ml @ 50 mls/hr IV . Q20H [facility] Rx#:[id number] Oral 615 Output: Urine 530 515 610 Other: Voiding Method Indwelling Catheter Indwelling Catheter ABP, PAP, CO, CI - Last Documented Arterial Blood Pressure 120/65 Pulmonary Artery Pressure 31/25 Cardiac Output 7 Cardiac Index 3.0 - Exam GENERAL EXAM: Morbidly obese. Alert, comfortable in no apparent distress. HEAD: Normocephalic. EYES: Normal reaction of pupils, equal size. NOSE: Clear with pink turbinates. THROAT: No erythema or exudates. NECK: No masses, no JVD. CHEST: No chest wall deformity. LUNGS: Equal air entry with faint crackles in the posterior bases. CVS: S1 and S2 normal with audible murmurs, regular rhythm. ABDOMEN: Obese, soft, normal bowel sounds, no guarding or rigidity. SPINE: Kyphoscoliosis SKIN: No rashes CENTRAL NERVOUS SYSTEM: No focal deficits, tone is normal in all 4 extremities. Extremities: There is trace peripheral edema. No clubbing, no cyanosis. Peripheral pulses are intact. - Labs CBC & Chem 7: 05/02/16 05:28 05/02/16 05:28 Labs: Abnormal Lab Results - Last 24 Hours (Table) 05/01/16 05/01/16 05/02/16 Range/Units 11:51 20:37 05:26 RBC (4.30-5.90) m/uL Hgb (13.0-17.5) gm/dL Hct (39.0-53.0) % MCHC (31.0-37.0) g/dL PT (9.0-12.0) sec Sodium (137-145) mmol/L Chloride (98-107) mmol/L BUN (9-20) mg/dL Glucose (74-99) mg/dL POC Glucose (mg/dL) 119 H 126 H 121 H (75-99) mg/dL Total Protein (6.3-8.2) g/dL Albumin (3.5-5.0) g/dL 05/02/16 05/02/16 05/02/16 Range/Units 05:28 05:28 05:28 RBC 3.08 L (4.30-5.90) m/uL Hgb 8.8 L (13.0-17.5) gm/dL Hct 29.5 L (39.0-53.0) % MCHC 29.7 L (31.0-37.0) g/dL PT 12.3 H (9.0-12.0) sec Sodium 149 H (137-145) mmol/L Chloride 110 H (98-107) mmol/L BUN 22 H (9-20) mg/dL Glucose 126 H (74-99) mg/dL POC Glucose (mg/dL) (75-99) mg/dL Total Protein 5.6 L (6.3-8.2) g/dL Albumin 2.7 L (3.5-5.0) g/dL Microbiology - Last 24 Hours (Table) 04/26/16 22:10 Anaerobic Culture - Final Groin Assessment and Plan Plan: Impression: #1 Coronary artery disease involving the left main with severe aortic stenosis and ischemic cardiomyopathy with estimated ejection fraction 25%. He is status post coronary artery bypass grafting and valve replacement. #2 Acute exacerbation of her suspected chronic systolic congestive heart failure with estimated ejection fraction 25%. #3 Questionable right apical atrial thrombus. #4 Morbid obesity. 5 Scoliosis of the thoracic spine. #6 Benign prostatic hypertrophy. #7 Hyperlipidemia. #8 Osteoarthritis. #9 Acute on suspected chronic renal failure versus cardiorenal syndrome. Plan: The patient was seen and evaluated by Dr. Berkowitz. His chest x-ray and labs were reviewed. We'll have again encourage increased use of the incentive spirometer and cough and deep breathing exercises. We'll continue to increase his activity as tolerated. We'll continue to follow make further recommendations based on his clinical status.
[2016-05-02 12:17] LABS: Glucose,Whole Blood 96 mg/dL (75-99)
--- NOTE | 2016-05-02 12:33 | P.PN ---
Subjective Principal diagnosis: POD: #14, triple vessel coronary artery bypass grafting using the left internal mammary artery to the left anterior descending coronary artery, a reverse greater saphenous vein graft from the aorta to the early arising posterior descending coronary artery, a reverse greater saphenous vein graft from the aorta to the intramyocardial ramus intermedius artery proximally. 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 Intraoperative transesophageal echocardiogram and Epi-aortic scanning. Endoscopic vein harvesting of the right greater saphenous vein. #14 Reexploration for postoperative bleeding. Patient sitting up in bed in no apparent distress. Denies pain. He wants to get up in chair for breakfast. Objective - Vital Signs Vital signs: Vital Signs Temp 98.3 F 05/02/16 04:00 Pulse 77 05/02/16 08:04 Resp 14 05/02/16 07:00 BP 122/66 05/02/16 07:00 Pulse Ox 94 L 05/02/16 07:00 Intake & Output 05/01/16 05/02/16 05/02/16 18:59 06:59 18:59 Intake Total 500 615 Output Total 530 515 610 Balance -30 100 -610 Weight 127.6 kg 127.6 kg Intake: IV 500 Dextrose 5% in Water 1, 500 000 ml @ 50 mls/hr IV . Q20H [facility] Rx#:[id number] Oral 615 Output: Urine 530 515 610 Other: Voiding Method Indwelling Catheter Indwelling Catheter ABP, PAP, CO, CI - Last Documented Arterial Blood Pressure 120/65 Pulmonary Artery Pressure 31/25 Cardiac Output 7 Cardiac Index 3.0 - Constitutional General appearance: Present: no acute distress, obese - EENT EENT Comment(s): Patient exhibits hoarseness when speaking. Currently thickened liquid diet. Eyes: Present: PERRLA - Respiratory Details: Respirations even and nonlabored. Only able to achieve 500 mL on incentive spirometry. Weak cough present. Respiratory: bilateral: diminished, wheezing - Cardiovascular Details: Normal sinus rhythm on telemetry with occasional PACs. Rhythm: regular Heart sounds: normal: S1, S2 - Peripheral edema leg Peripheral Edema Comment(s): Bilateral lower extremity 3+ pitting edema present. Patient currently wearing KARON hose and SCDs. Palpable peripheral pulses present. - Gastrointestinal Gastrointestinal Comment(s): Abdomen soft, nontender, nondistended. Bowel sounds active in all 4 quadrants. Patient states he had a bowel movement yesterday. - Genitourinary Genitourinary Comment(s): Nava catheter remains secondary to penile edema. Sediment present. RN needed to flush Nava catheter secondary to 600 mL residual in bladder. Nava now draining. - Integumentary Integumentary Comment(s): Skin warm, dry, pink. Silver dressing covering the anterior chest wall incision clean dry and intact. Right groin site healing well. Right EVH site clean, dry, and healing well. - Neurologic Neurologic Comment(s): Patient is alert, oriented 3, follows commands. - Musculoskeletal Musculoskeletal Comment(s): Able to get up in chair with maximum support. Needs much encouragement to move. Musculoskeletal: Present: generalized weakness - Psychiatric Psychiatric: Present: A&O x's 3, appropriate affect - Allied health notes Allied health notes reviewed: nursing - Labs CBC & Chem 7: 05/02/16 05:28 05/02/16 05:28 Labs: Abnormal Lab Results - Last 24 Hours (Table) 05/01/16 05/01/16 05/02/16 Range/Units 11:51 20:37 05:26 RBC (4.30-5.90) m/uL Hgb (13.0-17.5) gm/dL Hct (39.0-53.0) % MCHC (31.0-37.0) g/dL PT (9.0-12.0) sec Sodium (137-145) mmol/L Chloride (98-107) mmol/L BUN (9-20) mg/dL Glucose (74-99) mg/dL POC Glucose (mg/dL) 119 H 126 H 121 H (75-99) mg/dL Total Protein (6.3-8.2) g/dL Albumin (3.5-5.0) g/dL 05/02/16 05/02/16 05/02/16 Range/Units 05:28 05:28 05:28 RBC 3.08 L (4.30-5.90) m/uL Hgb 8.8 L (13.0-17.5) gm/dL Hct 29.5 L (39.0-53.0) % MCHC 29.7 L (31.0-37.0) g/dL PT 12.3 H (9.0-12.0) sec Sodium 149 H (137-145) mmol/L Chloride 110 H (98-107) mmol/L BUN 22 H (9-20) mg/dL Glucose 126 H (74-99) mg/dL POC Glucose (mg/dL) (75-99) mg/dL Total Protein 5.6 L (6.3-8.2) g/dL Albumin 2.7 L (3.5-5.0) g/dL Microbiology - Last 24 Hours (Table) 04/26/16 22:10 Anaerobic Culture - Final Groin - Imaging and Cardiology Chest x-ray: image reviewed Assessment and Plan (1) Congestive heart failure Narrative/Plan: Continue beta racheal, JESSE inhibitor. Daily weights, low-sodium diet. Status: Acute (2) NSTEMI (non-ST elevated myocardial infarction) Narrative/Plan: Continue Lopressor 50 mg PO tube twice a day. Continue aspirin, Plavix,heparin and statin Status: Acute (3) Status post aorto-coronary artery bypass graft Narrative/Plan: Epicardial pacemaker wires to be DC'd today. SCDs and KARON hose in place for DVT prophylaxis. Protonix in place for GI prophylaxis Status: Acute (4) Hypertension Narrative/Plan: Continue Lopressor 50 mg twice a day. Continue lisinopril. Status: Acute (5) Obesity, Class III, BMI 40-49.9 (morbid obesity) Status: Acute (6) Postoperative anemia due to acute blood loss Narrative/Plan: Continue to monitor hemoglobin and hematocrit daily, stable at this point. Status: Acute (7) Postoperative acute respiratory failure Narrative/Plan: Continue to encourage incentive spirometry, coughing, deep breathing. Status: Acute Plan: Plan: 1. Continue aspirin, beta racheal, statin, JESSE inhibitor. 2. Continue amiodarone for A. fib prophylaxis. 3. Will DC epicardial pacemaker wire today. 4. Encourage incentive spirometry, coughing and deep breathing. 5. Encourage increased time out of bed and ambulation in the hallway. 6. Keep Nava catheter secondary to penile edema. 7. May transfer to stepdown unit when bed available. Time with Patient: Greater than 30
[2016-05-02] MEDS ORDERED: FUROSEMIDE 10 MG/ML 2 ML VIAL IV ONE (14:56)
--- NOTE | 2016-05-02 15:05 | P.PN ---
Progress Note - Text Atrial and ventricular epicardial pacemaker wires DC'd. Ventricular wire cut and atrial wire pulled. Patient tolerated well without incident. Patient is on bedrest for 1 hour
--- NOTE | 2016-05-02 17:07 | PN ---
76-year-old admitted with ST elevation myocardial infarction, found to have triple-vessel disease and patient underwent coronary artery bypass grafting as well as aortic valve repair and patient has multiple other medical issues including atrial fibrillation and patient is on amiodarone for that. Patient because of dysphagia is receiving honey-thickened liquids. All his chronic medical problems appear to be fairly stable at this point of time. Patient continues to have Nava catheter. REVIEW OF SYSTEMS: CARDIOVASCULAR: No chest pain, no orthopnea, no PND, no palpitations. PULMONARY: Denied any shortness of breath. No cough or hemoptysis. GASTROINTESTINAL: No diarrhea, nausea or vomiting. No abdominal pain. Normoactive bowel sounds. NEUROLOGIC: No headaches, no weakness, no numbness. Medications were reviewed. PHYSICAL EXAMINATION: VITAL SIGNS: Temperature is 97.7, pulse of 79, respiratory rate of 27, blood pressure is 130/66, saturating at 97% on 4 L of oxygen by nasal cannula. GENERAL: Morbidly obese. Alert and oriented x3. Patient does have some peripheral edema. HEENT: Pupils are round and equally reacting to light. EOMI. No scleral icterus. No conjunctival pallor. Normocephalic, atraumatic. No pharyngeal erythema. No thyromegaly. CARDIOVASCULAR: S1 and S2 present. No murmurs, rubs, or gallops. PULMONARY: Chest is clear to auscultation, no wheezing or crackles. ABDOMEN: Soft, nontender, nondistended, normoactive bowel sounds. No palpable organomegaly. MUSCULOSKELETAL: No joint swelling or deformity. EXTREMITIES: No cyanosis, clubbing, or pedal edema. NEUROLOGICAL: Gross neurological examination did not reveal any focal deficits. SKIN: No rashes. Chest x-ray is showing some pulmonary edema with small bilateral pleural effusions that is being managed by Cardiology. ASSESSMENT AND PLAN: 1. Status post coronary artery bypass grafting, aortic valve placement, status post hypoxic respiratory failure post surgery and cardiogenic shock, which improved. 2. Hypernatremia due to poor oral intake and free water intake. 3. Atrial fibrillation converted to sinus rhythm, at this point of time rate controlled. 4. Ischemic cardiomyopathy, ejection fraction of 25 to 30% with mild pulmonary edema and further management as per the Cardiology. 5. Chronic obstructive pulmonary disease without any acute exacerbation. 6. Acute renal failure, prerenal azotemia, which resolved at this point of time. 7. Morbid obesity. 8. Questionable right atrial thrombus. Further management as mentioned above. 9. Acute blood loss anemia secondary to surgery, which improved. 10. Benign prostatic hypertrophy. PLAN: Continue with present medications. Strict I's and O's. Monitor kidney function. We will continue to follow.
[2016-05-02 17:29] LABS: Glucose,Whole Blood 99 mg/dL (75-99)
[2016-05-02 20:48] LABS: Glucose,Whole Blood 149 mg/dL (75-99)
[2016-05-03 04:58] LABS: Basophils % (A) 1 %; CH 29.4; CHCM 31.1; Eosinophils # (A) 0.2 k/uL (0-0.7); Eosinophils % (A) 2 %; HGB 9.1 gm/dL (13.0-17.5); Hypochromasia Moderate; Luc # (Auto) 0.17; Luc % (Auto) 2; Lymphocytes # (A) 1.6 k/uL (1.0-4.8); Lymphocytes % (A) 19 %; MCH 29.8 pg (25.0-35.0); MCHC 31.3 g/dL (31.0-37.0); MCV 95.4 fL (80.0-100.0); Mean Platelet Volume 6.9; Monocytes # (A) 0.4 k/uL (0-1.0); Monocytes % (A) 4 %; Neutrophils # (A) 5.9 k/uL (1.3-7.7); Neutrophils % (A) 72 %; Poikilocytosis Slight; RBC 3.04 m/uL (4.30-5.90); RDW 15.3 % (11.5-15.5); WBC 8.3 k/uL (3.8-10.6); WBC (Perox) 8.91
[2016-05-03 05:00] LABS: Anion Gap 8 mmol/L; Blood Urea Nitrogen 19 mg/dL (9-20); Calcium 8.4 mg/dL (8.4-10.2); Carbon Dioxide 31 mmol/L (22-30); Chloride 110 mmol/L (98-107); Glucose 96 mg/dL (74-99); Non-African American GFR(MDRD) >60 (>60 ml/min/1.73 sqM); Potassium 3.7 mmol/L (3.5-5.1); Sodium 149 mmol/L (137-145)
--- NOTE | 2016-05-03 07:43 | XR ---
EXAMINATION TYPE: XR chest 1V portable DATE OF EXAM: 05/03/2016 6:20 AM CLINICAL HISTORY: Difficulty breathing progress study. Status post open heart surgery. TECHNIQUE: Single AP portable upright view of the chest is obtained. COMPARISON: Chest x-ray from one day earlier FINDINGS: A left-sided PICC line is stable in appearance. Sternal wires and mediastinal clips from CA BG procedure are redemonstrated. There is persistent cardiomegaly with atherosclerotic and ectatic th oracic aorta causing tracheal deviation to the right. There is persistent bibasilar opacity consisten t with left greater than right bilateral lower lung infiltrate and/or atelectasis and probable small pleural effusions. Osseous structures are intact. IMPRESSION: Overall stable findings, cardiomegaly with small left greater than right pleural effusi ons and associated left greater than right bibasilar atelectasis and/or infiltrate all redemonstrated
[2016-05-03 07:49] LABS: Glucose,Whole Blood 83 mg/dL (75-99)
[2016-05-03] MEDS: IPRATROPIUM-ALBUTEROL 3 ML NEB INHALATION SCH ×4 (07:54→20:07)
[2016-05-03] MEDS ORDERED: POTASSIUM CHLORIDE ER 20 MEQ TAB.ER PO SCH (08:00)
[2016-05-03] MEDS: INSULIN LISPRO (humaLOG) 300 UNIT/3 ML VIAL SQ SCH ×4 (09:37→20:30)
--- NOTE | 2016-05-03 09:38 | P.PN ---
Subjective Principal diagnosis: POD: #15, triple vessel coronary artery bypass grafting using the left internal mammary artery to the left anterior descending coronary artery, a reverse greater saphenous vein graft from the aorta to the early arising posterior descending coronary artery, a reverse greater saphenous vein graft from the aorta to the intramyocardial ramus intermedius artery proximally. 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 Intraoperative transesophageal echocardiogram and Epi-aortic scanning. Endoscopic vein harvesting of the right greater saphenous vein. #15 Reexploration for postoperative bleeding. Patient sitting up in bed in no apparent distress. Denies pain. Anxious to get up for breakfast.. Objective - Vital Signs Vital signs: Vital Signs Temp 98.2 F 05/03/16 04:00 Pulse 79 05/03/16 08:08 Resp 21 05/03/16 04:00 BP 119/53 05/03/16 04:00 Pulse Ox 96 05/03/16 04:00 Intake & Output 05/02/16 05/03/16 05/03/16 18:59 06:59 18:59 Intake Total 720 Output Total 1550 610 Balance -1550 110 Weight 127.6 kg 126.3 kg Intake: Oral 720 Output: Urine 1550 610 Other: Voiding Method Indwelling Catheter Indwelling Catheter # Voids 1 ABP, PAP, CO, CI - Last Documented Arterial Blood Pressure 120/65 Pulmonary Artery Pressure 31/25 Cardiac Output 7 Cardiac Index 3.0 - Constitutional General appearance: Present: no acute distress, obese - Respiratory Details: Patient currently receiving albuterol nebulizer. Respirations even and nonlabored. Lungs sounds diminished bilaterally. - Cardiovascular Details: Clear S1-S2. Regular rate and rhythm. Sinus rhythm on telemetry. Bilateral lower extremity 3+ edema present. Palpable radial, DP, PT pulses. - Gastrointestinal Gastrointestinal Comment(s): Abdomen soft, nontender, nondistended. Bowel sounds active 4 quadrants. Last bowel movement yesterday. - Genitourinary Genitourinary Comment(s): Nava removed at 4 AM. No urine output yet. - Integumentary Integumentary Comment(s): Skin warm, dry. Right groin healing nicely. Anterior chest wall incision covered with dry, intact silver dressing. - Neurologic Neurologic Comment(s): Alert and oriented 3. Following all commands. - Psychiatric Psychiatric: Present: appropriate affect, intact judgment & insight - Allied health notes Allied health notes reviewed: nursing - Labs CBC & Chem 7: 05/03/16 04:30 05/03/16 04:30 Labs: Abnormal Lab Results - Last 24 Hours (Table) 05/02/16 05/03/16 05/03/16 Range/Units 20:46 04:30 04:30 RBC 3.04 L (4.30-5.90) m/uL Hgb 9.1 L (13.0-17.5) gm/dL Hct 29.0 L (39.0-53.0) % Sodium 149 H (137-145) mmol/L Chloride 110 H (98-107) mmol/L Carbon Dioxide 31 H (22-30) mmol/L POC Glucose (mg/dL) 149 H (75-99) mg/dL - Imaging and Cardiology Chest x-ray: image reviewed Assessment and Plan (1) Congestive heart failure Narrative/Plan: Continue beta racheal, JESSE inhibitor. Daily weights, low-sodium diet. Status: Acute (2) NSTEMI (non-ST elevated myocardial infarction) Narrative/Plan: Continue Lopressor 50 mg PO tube twice a day. Continue aspirin, Plavix,heparin and statin Status: Acute (3) Status post aorto-coronary artery bypass graft Narrative/Plan: Continue his current medication regimen. Encouraged patient to get out of bed, ambulate in the hallways. SCDs and KARON hose in place for DVT prophylaxis. Protonix in place for GI prophylaxis Status: Acute (4) Hypertension Narrative/Plan: Continue Lopressor 50 mg twice a day. Continue lisinopril. Status: Acute (5) Obesity, Class III, BMI 40-49.9 (morbid obesity) Status: Acute (6) Postoperative anemia due to acute blood loss Narrative/Plan: Continue to monitor hemoglobin and hematocrit daily, stable at this point. Status: Acute (7) Postoperative acute respiratory failure Narrative/Plan: Continue to encourage incentive spirometry, coughing, deep breathing. Status: Acute Plan: Plan: 1. Continue aspirin, beta racheal, statin, JESSE inhibitor. 2. Continue amiodarone for A. fib prophylaxis. 3. Encourage incentive spirometry, coughing and deep breathing. 4. Encourage increased time out of bed and ambulation in the hallway. 5. Monitor for urine output. May need to replace a Nava. 7. May transfer to stepdown unit when bed available. Time with Patient: Greater than 30
--- NOTE | 2016-05-03 10:03 | P.PN ---
Subjective This is a 76-year-old patient who was admitted back on April 13 with a diagnosis of non-ST segment elevation myocardial infarction and shortness of breath. The patient went to the [facility] on April 15 and was found to have three-vessel disease with aortic stenosis. On the , the patient went to the operating room and had a three-vessel bypass grafting and aortic valve replacement. Today's postop day #12. The patient also to go back to the or on the same day for bleeding. In addition, the patient has had 4 bronchoscopies for lung collapse and retained secretions. He was finally extubated on the . The patient has had difficulty swallowing and is been some concerns about chronic aspiration. Going for a modified barium swallow today. The patient's currently on 4 L nasal cannula and IV of D5W at 50 mL now and Cordarone 0.5 mg/m for his atrial fibrillation. In addition to his three-vessel bypass grafting aortic valve replacement for aortic stenosis, the patient has a history of ventilator dependent respiratory failure with ultimate extubation on April 26, CAD, heart failure, scoliosis, benign prostatic hypertrophy, hyperlipidemia, DJD, acute kidney injury, obesity , and postoperative anemia. Progress note dated 05/01/2016 This is a 76-year-old gentleman who continues to show slow improvement. He is currently on O2 at 4 L nasal cannula. He is getting a D5.45 IV at 50 mL an hour. The patient was admitted way back on April 13 with a diagnosis of non- ST segment elevation myocardial infarction. The patient a three-vessel bypass grafting aortic valve replacement for aortic stenosis. He was extubated on April 26. Progress note dated 05/03/2016 76-year-old white male who is currently on O2 at 4 L and an IV which is been troubled. He status post 3 vessel bypass grafting in an aortic valve replacement for aortic stenosis. Extubated on April 26. He was admitted on April 13 with a diagnosis of non-ST segment elevation myocardial infarction. The patient continued to show steady improvement but is not real motivated. Doesn't do real well with his ambulation or his use of incentive spirometer. No shortness of breath cough wheezing chest pain or other complaints today. Objective - Vital Signs Vital signs: Vital Signs Temp 98.2 F 05/03/16 04:00 Pulse 79 05/03/16 08:08 Resp 21 05/03/16 04:00 BP 119/53 05/03/16 04:00 Pulse Ox 96 05/03/16 04:00 Intake & Output 05/02/16 05/03/16 05/03/16 18:59 06:59 18:59 Intake Total 720 Output Total 1550 610 Balance -1550 110 Weight 127.6 kg 126.3 kg Intake: Oral 720 Output: Urine 1550 610 Other: Voiding Method Indwelling Catheter Indwelling Catheter # Voids 1 ABP, PAP, CO, CI - Last Documented Arterial Blood Pressure 120/65 Pulmonary Artery Pressure 31/25 Cardiac Output 7 Cardiac Index 3.0 - Exam No acute distress, oriented 3. HEENT examination is grossly unremarkable. Mucous membranes are moist. Supple. Full range of motion. No adenopathy. Cardiovascular examination reveals regular rhythm rate. S1-S2 normal. No S3- S4. No murmur. Next Lungs reveal bibasilar crackles. Abdomen soft bowel sounds are heard. Extremities are intact. - Labs CBC & Chem 7: 05/03/16 04:30 05/03/16 04:30 Labs: Abnormal Lab Results - Last 24 Hours (Table) 05/02/16 05/03/16 05/03/16 Range/Units 20:46 04:30 04:30 RBC 3.04 L (4.30-5.90) m/uL Hgb 9.1 L (13.0-17.5) gm/dL Hct 29.0 L (39.0-53.0) % Sodium 149 H (137-145) mmol/L Chloride 110 H (98-107) mmol/L Carbon Dioxide 31 H (22-30) mmol/L POC Glucose (mg/dL) 149 H (75-99) mg/dL Assessment and Plan Plan: Plan dated 04/30/2016 The patient will go for a modified barium swallow. Ex The patient currently remains on his IV Cordarone at 0.5 mg/m. The patient's are reasonably stable. The patient has an overall guarded prognosis. Additional recommendations suggestions are forthcoming. Plan dated 05/01/2016 The patient did fail his modified barium swallow from yesterday. He continues to BMP O. The patient will continue to be maintained here in the ICU is guarded. Medications ALLERGIES x-rays and so forth are reviewed. Next Plan dated 05/03/2016 The patient is making slow progress. No discharge recommendations are made. X- rays labs medications are reviewed. We'll follow. Time with Patient: Less than 30
[2016-05-03] MEDS: PANTOPRAZOLE 40 MG TABLET PO SCH (10:22)
[2016-05-03] MEDS: ASPIRIN 81 MG CHEW PO SCH (10:23)
[2016-05-03] MEDS: DOCUSATE ORAL SOLN 100 MG/10 ML CUP PO SCH (10:23)
[2016-05-03] MEDS: HEPARIN SODIUM,PORCINE 5,000 UNIT/ML 1 ML VIAL SQ SCH ×3 (10:23→23:00)
[2016-05-03] MEDS: AMOXIC-POT CLAV 875-125MG 1 EACH TAB PO SCH ×2 (10:23→20:30)
[2016-05-03] MEDS: ATORVASTATIN 40 MG TAB PO SCH (10:23)
[2016-05-03] MEDS: BACITRACIN 500 UNIT/GM OINT 28.4 GM TUBE TOPICAL SCH ×2 (10:23→20:30)
[2016-05-03] MEDS: CLOPIDOGREL 75 MG TAB PO SCH (10:23)
[2016-05-03] MEDS: FUROSEMIDE 10 MG/ML 2 ML VIAL IV SCH ×2 (10:24→20:30)
[2016-05-03] MEDS: LISINOPRIL 2.5 MG TAB PO SCH (10:24)
[2016-05-03] MEDS: METOPROLOL TARTRATE 50 MG TAB PO SCH ×3 (11:26→22:39)
[2016-05-03] MEDS: AMIODARONE 100 MG TAB PO SCH ×2 (11:26→20:30)
[2016-05-03 12:37] LABS: Glucose,Whole Blood 125 mg/dL (75-99)
[2016-05-03] MEDS: CHOLECALCIFEROL 1,000 UNIT TAB PO SCH (12:45)
[2016-05-03 16:43] LABS: Glucose,Whole Blood 108 mg/dL (75-99)
--- NOTE | 2016-05-03 19:23 | PN ---
Patient is admitted with [id number] myocardial infarction, underwent triple vessel bypass and patient is also being treated for atrial fibrillation. Patient is on amiodarone at this point of time. Patient is otherwise clinically doing well and patient is having some progress. REVIEW OF SYSTEMS: CARDIOVASCULAR: No chest pain, no orthopnea, no PND, no palpitations. PULMONARY: Denied any shortness of breath. No cough or hemoptysis. GASTROINTESTINAL: No diarrhea, nausea or vomiting. No abdominal pain. Normoactive bowel sounds. NEUROLOGIC: No headaches, no weakness, no numbness. Medications are reviewed. The patient physically feels just weak which apparently is improving at this point of time. Medications were reviewed. PHYSICAL EXAMINATION: VITAL SIGNS: Temperature 97.9, pulse of 56, respiratory rate of 21, blood pressure is 103/54. Saturating at 96% on 4 liters of O2. Oxygen can be tapered down. GENERAL: Patient generally appears to be tired, alert and oriented times three. HEENT: Pupils are round and equally reacting to light. EOMI. No scleral icterus. No conjunctival pallor. Normocephalic, atraumatic. No pharyngeal erythema. No thyromegaly. CARDIOVASCULAR: S1 and S2 present. No murmurs, rubs, or gallops. PULMONARY: Chest is clear to auscultation, no wheezing or crackles. ABDOMEN: Soft, nontender, nondistended, normoactive bowel sounds. No palpable organomegaly. MUSCULOSKELETAL: No joint swelling or deformity. EXTREMITIES: No cyanosis, clubbing, or pedal edema. NEUROLOGICAL: Gross neurological examination did not reveal any focal deficits. SKIN: No rashes. LABORATORY DATA: CBC and BMP was reviewed. No significant change compared to yesterday. Chest x-ray, no significant change compared to yesterday. FINAL DIAGNOSIS(ES): 1. Status post coronary artery bypass grafting, status post cardiogenic shock, and patient is slowly improving. 2. Hyponatremia and encouraged him to drink free water per orally, hyponatremia is actually stabilized secondary to IV fluids he received. 3. Ischemic cardiomyopathy, ejection fraction of 20 to 30%. Continue with present medications for that. 4. Chronic obstructive pulmonary disease without any acute exacerbation. 5. Acute renal failure and prerenal azotemia which improved. Patient is on low dose of Lasix and low dose Lisinopril for his heart failure. 6. Morbid obesity. 7. Generalized weakness and deconditioning. 8. Acute blood loss anemia from surgery, which resolved. Patient's hemoglobin is fairly stable. 9. Benign prostatic hypertrophy. Plan is to continue with present medications, ( ) continue to monitor. Physical therapy. Discharge whenever cleared by cardiothoracic surgery to Rehab.
[2016-05-03 20:20] LABS: Glucose,Whole Blood 129 mg/dL (75-99)
[2016-05-04] MEDS ORDERED: POTASSIUM CHLORIDE ORAL LIQUID 40 MEQ/30 ML CUP NG-TUBE SCH (02:00)
[2016-05-04 07:58] LABS: Glucose,Whole Blood 145 mg/dL (75-99)
[2016-05-04] MEDS: IPRATROPIUM-ALBUTEROL 3 ML NEB INHALATION SCH ×4 (08:00→20:06)
--- NOTE | 2016-05-04 08:00 | XR ---
EXAMINATION TYPE: XR chest 1V portable DATE OF EXAM: 05/04/2016 7:50 AM CLINICAL HISTORY: Difficulty breathing progress study. Postop CABG. TECHNIQUE: Single AP portable upright view of the chest is obtained. COMPARISON: Chest x-ray from one day earlier FINDINGS: A left-sided PICC line is stable in appearance. Sternal wires and mediastinal clips from C ABG procedure are redemonstrated. There is persistent cardiomegaly with atherosclerotic and ectatic t horacic aorta causing tracheal deviation to the right. There is persistent left greater than right bi basilar opacity consistent with left greater than right bilateral lower lung infiltrate and/or atelec tasis and probable small bilateral pleural effusions. Degenerative change right glenohumeral joint is noted. IMPRESSION: Overall stable findings, cardiomegaly with left greater than right bilateral lower lung infiltrate and atelectasis and small bilateral pleural effusions all redemonstrated.
[2016-05-04] MEDS: INSULIN LISPRO (humaLOG) 300 UNIT/3 ML VIAL SQ SCH ×5 (08:25→21:15)
--- NOTE | 2016-05-04 08:58 | P.PN ---
Subjective Principal diagnosis: POD: #16, triple vessel coronary artery bypass grafting using the left internal mammary artery to the left anterior descending coronary artery, a reverse greater saphenous vein graft from the aorta to the early arising posterior descending coronary artery, a reverse greater saphenous vein graft from the aorta to the intramyocardial ramus intermedius artery proximally. 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 Intraoperative transesophageal echocardiogram and Epi-aortic scanning. Endoscopic vein harvesting of the right greater saphenous vein. #16 Reexploration for postoperative bleeding. Patient up in chair in no apparent distress. Denies pain. Denies shortness of breath. Objective - Vital Signs Vital signs: Vital Signs Temp 97.7 F 05/04/16 06:00 Pulse 76 05/04/16 06:00 Resp 20 05/04/16 06:00 BP 112/58 05/04/16 06:00 Pulse Ox 98 05/04/16 06:00 Intake & Output 05/03/16 05/04/16 05/04/16 18:59 06:59 18:59 Intake Total 360 Output Total 550 Balance -190 Weight 126.3 kg 124.3 kg Intake: Oral 360 Output: Urine 550 Other: Voiding Method Urinal Urinal # Voids 2 1 # Bowel Movements 1 1 ABP, PAP, CO, CI - Last Documented Arterial Blood Pressure 120/65 Pulmonary Artery Pressure 31/25 Cardiac Output 7 Cardiac Index 3.0 - Constitutional General appearance: Present: no acute distress, obese - Respiratory Details: Respirations even and nonlabored. Lungs sounds diminished with fine crackles in the bases. Incentive spirometry use at 750 mL. Currently on 4 L nasal cannula. - Cardiovascular Details: Clear S1-S2. Regular rate and rhythm. Normal sinus rhythm on telemetry. Lower extremity 3+ edema persists. Palpable radial, DP, PT pulses. Chest stable. Heart hugger in place. - Gastrointestinal Gastrointestinal Comment(s): Abdomen soft, nontender, nondistended. Active bowel sounds in all 4 quadrants. Bowel movement 2 yesterday. - Genitourinary Genitourinary Comment(s): Patient continues to void clear yellow urine per urinal. - Integumentary Integumentary Comment(s): Skin warm, dry. Anterior chest wall incision covered with dry intact silver dressing. Right groin site healing nicely. Chest tube incision sites well approximated. - Neurologic Neurologic Comment(s): Alert and oriented 3. Following all commands. - Musculoskeletal Musculoskeletal Comment(s): Able to get up to chair with max assist. - Psychiatric Psychiatric: Present: appropriate affect, intact judgment & insight - Allied health notes Allied health notes reviewed: nursing - Labs CBC & Chem 7: 05/03/16 04:30 05/04/16 06:35 Labs: Abnormal Lab Results - Last 24 Hours (Table) 05/03/16 05/03/16 05/03/16 Range/Units 12:27 16:40 20:18 POC Glucose (mg/dL) 125 H 108 H 129 H (75-99) mg/dL Microbiology - Last 24 Hours (Table) 04/20/16 10:30 Fungal Culture - Preliminary Bronchoalviolar Lavage - Right - Imaging and Cardiology Chest x-ray: image reviewed Assessment and Plan (1) Congestive heart failure Narrative/Plan: Continue beta racheal, JESSE inhibitor. Daily weights, low-sodium diet. Status: Acute (2) NSTEMI (non-ST elevated myocardial infarction) Narrative/Plan: Continue Lopressor 50 mg PO 3 times a day. Continue aspirin, Plavix,heparin and statin Status: Acute (3) Status post aorto-coronary artery bypass graft Narrative/Plan: Continue his current medication regimen. Encouraged patient to stay out of bed , ambulate in the hallways. SCDs and KARON hose in place for DVT prophylaxis. Protonix in place for GI prophylaxis. Continue to encourage incentive spirometry use, coughing and deep breathing. Status: Acute (4) Hypertension Narrative/Plan: Continue Lopressor 50 mg 3 times a day. Continue lisinopril. Status: Acute (5) Obesity, Class III, BMI 40-49.9 (morbid obesity) Status: Acute (6) Postoperative anemia due to acute blood loss Narrative/Plan: Continue to monitor hemoglobin and hematocrit daily, stable at this point. Status: Acute (7) Postoperative acute respiratory failure Narrative/Plan: Continue to encourage incentive spirometry, coughing, deep breathing. Status: Acute Plan: Plan: 1. Continue aspirin, beta racheal, statin, JESSE inhibitor. 2. Continue amiodarone for A. fib prophylaxis. 3. Encourage incentive spirometry, coughing and deep breathing. 4. Encourage increased time out of bed and ambulation in the hallway. 5. Continue to monitor urine output. No need for Nava at this time. 7. May transfer to stepdown unit when bed available, hopefully discharge to rehab soon. Time with Patient: Greater than 30
[2016-05-04] MEDS: HEPARIN SODIUM,PORCINE 5,000 UNIT/ML 1 ML VIAL SQ SCH ×3 (09:08→22:50)
[2016-05-04] MEDS: PANTOPRAZOLE 40 MG TABLET PO SCH (09:08)
[2016-05-04] MEDS: AMIODARONE 100 MG TAB PO SCH ×2 (09:08→21:12)
[2016-05-04] MEDS: ATORVASTATIN 40 MG TAB PO SCH (09:09)
[2016-05-04] MEDS: AMOXIC-POT CLAV 875-125MG 1 EACH TAB PO SCH ×2 (09:09→21:13)
[2016-05-04] MEDS: METOPROLOL TARTRATE 50 MG TAB PO SCH ×3 (09:09→21:14)
[2016-05-04] MEDS: CLOPIDOGREL 75 MG TAB PO SCH (09:09)
[2016-05-04] MEDS: ASPIRIN 81 MG CHEW PO SCH (09:09)
[2016-05-04] MEDS: DOCUSATE ORAL SOLN 100 MG/10 ML CUP PO SCH (09:10)
[2016-05-04] MEDS: BACITRACIN 500 UNIT/GM OINT 28.4 GM TUBE TOPICAL SCH ×2 (09:10→21:13)
[2016-05-04] MEDS: FUROSEMIDE 10 MG/ML 2 ML VIAL IV SCH ×2 (09:10→21:15)
[2016-05-04] MEDS: LISINOPRIL 2.5 MG TAB PO SCH (09:10)
--- NOTE | 2016-05-04 10:38 | PN ---
DATE OF SERVICE: May 02, 2016 This patient is status post aortic valve replacement and bypass surgery. The patient had a long course in the ICU. Patient has been extubated for several days and maintaining his respiratory status. He was in atrial fibrillation, but currently maintaining sinus rhythm. Patient is not on anticoagulation therapy. He is on amiodarone. The patient is still having some difficulty swallowing, especially the water and free fluid. Maintaining sinus rhythm. Does not complain of any chest pain. Physical examination reveals an elderly gentleman who is alert, does not appear to be in acute distress. Neck is supple. No JVD. Lungs showed diminished breath sounds. Heart is irregular with occasional skipping of the heart beat. ABDOMEN: Soft. FINAL IMPRESSION: 1. Status post bypass surgery and aortic valve replacement. 2. Hypertension. 3. History of myocardial infarction and cardiomyopathy. 4. Hypertensive cardiovascular disease. PLAN: Continue current medical therapy, incentive spirometry, reevaluate his swallowing mechanism. Prognosis is guarded.
--- NOTE | 2016-05-04 10:50 | PN ---
DATE OF SERVICE: 05/03/2016 Mr. Mccracken is a 76-year-old gentleman who underwent aortocoronary bypass surgery and also aortic valve replacement. Patient had a PHAM graft to the LAD and vein graft to the posterior descending coronary artery and also vein graft to the ramus intermediate. Patient had 25 mm pericardial bioprosthesis. Patient had a prolonged stay in the hospital requiring respiratory support. Patient has been extubated for a few days now. Patient is alert and sitting in the chair. His echocardiogram showed still impaired LV function with ejection fraction of 30% to 35%. Vital signs are stable. He is maintaining sinus rhythm at this time. The patient is still having issues with swallowing. It is planned that patient may be going to a termite control technician care. Physical examination reveals an elderly gentleman who is alert, does not appear to be in acute distress. Blood pressure is about 120/70, heart rate in the 70s to 80s. Neck is supple. No JVD. HEART: S1 and S2 heard, distant heart sounds. Lungs show diminished breath sounds at bases. Abdomen is soft. Extremities, no significant edema. Lab work showed potassium level of 3.7 BUN is 19, creatinine 0.95. Hemoglobin is 9.1. FINAL IMPRESSION: 1. Congestive heart failure. 2. Status post bypass surgery. 3. History of non-ST elevation myocardial infarction. 4. Aortic valve replacement. 5. Hypertension. 6. Postoperative anemia. PLAN: Continue with current medical therapy including beta blockers, aspirin and statins. He is on amiodarone. Patient is maintaining sinus rhythm. He is not on anticoagulant therapy. Increase activity. Patient may be transferred to a long-term care.
--- NOTE | 2016-05-04 11:34 | P.PN ---
Subjective Principal diagnosis: CAD This is a pleasant 76-year-old gentleman who is status post coronary artery bypass grafting along with aortic valve replacement. From the cardiovascular standpoint overview, he seems to be doing good. He had one episode of A. fib but he continues to be in normal sinus mechanism. He is in process to be transferred into selective floor. Objective - Vital Signs Vital signs: Vital Signs Temp 98.2 F 05/04/16 08:00 Pulse 69 05/04/16 11:20 Resp 18 05/04/16 08:00 BP 112/57 05/04/16 08:00 Pulse Ox 95 05/04/16 08:00 Intake & Output 05/03/16 05/04/16 05/04/16 18:59 06:59 18:59 Intake Total 360 Output Total 550 Balance -190 Weight 126.3 kg 124.3 kg Intake: Oral 360 Output: Urine 550 Other: Voiding Method Urinal Urinal # Voids 2 1 # Bowel Movements 1 1 ABP, PAP, CO, CI - Last Documented Arterial Blood Pressure 120/65 Pulmonary Artery Pressure 31/25 Cardiac Output 7 Cardiac Index 3.0 - Constitutional General appearance: Present: no acute distress - Labs CBC & Chem 7: 05/03/16 04:30 05/04/16 06:35 Labs: Abnormal Lab Results - Last 24 Hours (Table) 05/03/16 05/03/16 05/03/16 Range/Units 12:27 16:40 20:18 POC Glucose (mg/dL) 125 H 108 H 129 H (75-99) mg/dL 05/04/16 Range/Units 07:49 POC Glucose (mg/dL) 145 H (75-99) mg/dL Microbiology - Last 24 Hours (Table) 04/20/16 10:30 Fungal Culture - Preliminary Bronchoalviolar Lavage - Right Assessment and Plan Plan: Assessment #1 status post CABG and AVR #2 multiple comorbid conditions Plan #1 continue the current medical treatment was dual antiplatelet therapy along with beta racheal and amiodarone #2 continue following up with him
[2016-05-04 12:30] LABS: Glucose,Whole Blood 133 mg/dL (75-99)
[2016-05-04] MEDS: CHOLECALCIFEROL 1,000 UNIT TAB PO SCH (12:31)
--- NOTE | 2016-05-04 12:45 | P.PN ---
Subjective This is a very pleasant 76-year-old gentleman who follows with as his primary care physician along with the [facility]. He has a history of kyphoscoliosis of the thoracic spine, morbid obesity, severe degenerative arthritis. He denied any previous history of COPD/emphysema is a remote history of smoking quit 50 years ago. No prior history of coronary artery disease. He had presented here on 04/13/2016 with increasing shortness of breath and left arm pain. He had subsequent undergone undergone cardiac catheterization that revealed triple-vessel disease including left main disease. He also has impaired left ventricular systolic function with estimated ejection fraction of 20-25%. He had undergone coronary artery bypass grafting utilizing a PHAM to the LAD, reverse saphenous graft to the PDA, and ramus intermedius. He also received aortic valve replacement. He is seen again today 05/04/2016 in the ICU as a selective care overflow. He is awake and alert in no acute distress. He's been up ambulating with assistance. He does need increased encouragement regarding the use of the incentive spirometer and cough and deep breathing exercises. His chest x-ray continues to show some bilateral effusions more so on the left. He still utilizing 2 L/m per nasal cannula keep O2 saturations greater than 90%. Denies any worsening shortness of breath, cough or congestion. He'll most likely need inpatient rehabilitation post discharge. Objective - Vital Signs Vital signs: Vital Signs Temp 98.2 F 05/04/16 08:00 Pulse 69 05/04/16 11:20 Resp 18 05/04/16 08:00 BP 112/57 05/04/16 08:00 Pulse Ox 95 05/04/16 08:00 Intake & Output 05/03/16 05/04/16 05/04/16 18:59 06:59 18:59 Intake Total 360 Output Total 550 Balance -190 Weight 126.3 kg 124.3 kg Intake: Oral 360 Output: Urine 550 Other: Voiding Method Urinal Urinal # Voids 2 1 1 # Bowel Movements 1 1 ABP, PAP, CO, CI - Last Documented Arterial Blood Pressure 120/65 Pulmonary Artery Pressure 31/25 Cardiac Output 7 Cardiac Index 3.0 - Exam GENERAL EXAM: Morbidly obese. Alert, comfortable in no apparent distress. HEAD: Normocephalic. EYES: Normal reaction of pupils, equal size. NOSE: Clear with pink turbinates. THROAT: No erythema or exudates. NECK: No masses, no JVD. CHEST: No chest wall deformity. LUNGS: Equal air entry with faint crackles in the posterior bases. CVS: S1 and S2 normal with audible murmurs, regular rhythm. ABDOMEN: Obese, soft, normal bowel sounds, no guarding or rigidity. SPINE: Kyphoscoliosis SKIN: No rashes CENTRAL NERVOUS SYSTEM: No focal deficits, tone is normal in all 4 extremities. Extremities: There is trace peripheral edema. No clubbing, no cyanosis. Peripheral pulses are intact. - Labs CBC & Chem 7: 05/03/16 04:30 05/04/16 06:35 Labs: Abnormal Lab Results - Last 24 Hours (Table) 05/03/16 05/03/16 05/04/16 Range/Units 16:40 20:18 07:49 POC Glucose (mg/dL) 108 H 129 H 145 H (75-99) mg/dL 05/04/16 Range/Units 12:26 POC Glucose (mg/dL) 133 H (75-99) mg/dL Microbiology - Last 24 Hours (Table) 04/20/16 10:30 Fungal Culture - Preliminary Bronchoalviolar Lavage - Right Assessment and Plan Plan: Impression: #1 Coronary artery disease involving the left main with severe aortic stenosis and ischemic cardiomyopathy with estimated ejection fraction 25%. He is status post coronary artery bypass grafting and valve replacement. #2 Acute exacerbation of suspected chronic systolic congestive heart failure with estimated ejection fraction 25%. Bilateral pleural effusions remain more so on the left. #3 Questionable right apical atrial thrombus. #4 Morbid obesity. 5 Scoliosis of the thoracic spine. #6 Benign prostatic hypertrophy. #7 Hyperlipidemia. #8 Osteoarthritis. #9 Acute on suspected chronic renal failure versus cardiorenal syndrome. Recovered. Plan: The patient was seen and evaluated by Dr. Berkowitz. His chest x-ray and labs were reviewed. We'll continue with bronchodilators and Augmentin. He remains on IV Lasix 20 mg every 12 hours. We have again encouraged increased use of the incentive spirometer and cough and deep breathing exercises. We'll continue to increase his activity as tolerated. We'll continue to follow make further recommendations based on his clinical status.
[2016-05-04] MEDS ORDERED: ALTEPLASE 2 MG VIAL (CATHFLO) IV STA (12:58)
--- NOTE | 2016-05-04 14:09 | PN ---
Patient is admitted with [id number] myocardial infarction, underwent triple vessel bypass and patient is also being treated for atrial fibrillation. Patient is on amiodarone at this point of time. Patient is otherwise clinically doing well and patient is having some progress. REVIEW OF SYSTEMS: CARDIOVASCULAR: No chest pain, no orthopnea, no PND, no palpitations. PULMONARY: Denied any shortness of breath. No cough or hemoptysis. GASTROINTESTINAL: No diarrhea, nausea or vomiting. No abdominal pain. Normoactive bowel sounds. NEUROLOGIC: No headaches, no weakness, no numbness. Medications are reviewed. The patient physically feels just weak which apparently is improving at this point of time. Medications were reviewed. PHYSICAL EXAMINATION: VITAL SIGNS: Temperature 98.2, pulse of 69, respiratory rate of 18, blood pressure is 112/57, saturating at 95% on 4 liters of O2 by nasal cannula. GENERAL: Patient generally appears to be tired, alert and oriented times three. HEENT: Pupils are round and equally reacting to light. EOMI. No scleral icterus. No conjunctival pallor. Normocephalic, atraumatic. No pharyngeal erythema. No thyromegaly. CARDIOVASCULAR: S1 and S2 present. No murmurs, rubs, or gallops. PULMONARY: Chest is clear to auscultation, no wheezing or crackles. ABDOMEN: Soft, nontender, nondistended, normoactive bowel sounds. No palpable organomegaly. MUSCULOSKELETAL: No joint swelling or deformity. EXTREMITIES: No cyanosis, clubbing, or pedal edema. NEUROLOGICAL: Gross neurological examination did not reveal any focal deficits. SKIN: No rashes. LABORATORY DATA: None available from today. FINAL DIAGNOSIS(ES): 1. Status post coronary artery bypass grafting, status post cardiogenic shock, and patient is slowly improving. 2. Hyponatremia and encouraged him to drink free water per orally, hyponatremia is actually stabilized secondary to IV fluids he received. 3. Ischemic cardiomyopathy, ejection fraction of 20 to 30%. Continue with present medications for that. 4. Chronic obstructive pulmonary disease without any acute exacerbation. 5. Acute renal failure and prerenal azotemia which improved. Patient is on low dose of Lasix and low dose Lisinopril for his heart failure. 6. Morbid obesity. 7. Generalized weakness and deconditioning. 8. Acute blood loss anemia from surgery, which resolved. Patient's hemoglobin is fairly stable. 9. Benign prostatic hypertrophy. Plan is to continue with present medications. Continue physical therapy.
[2016-05-04 14:55] LABS: Basophils # (A) 0.1 k/uL (0-0.2); Basophils % (A) 1 %; CH 30.1; CHCM 31.2; Eosinophils # (A) 0.2 k/uL (0-0.7); Eosinophils % (A) 3 %; HCT 34.7 % (39.0-53.0); HDW 3.44; HGB 10.4 gm/dL (13.0-17.5); Hypochromasia Moderate; Luc # (Auto) 0.13; Luc % (Auto) 2; Lymphocytes # (A) 1.6 k/uL (1.0-4.8); Lymphocytes % (A) 20 %; MCH 29.1 pg (25.0-35.0); Mean Platelet Volume 8.2; Monocytes # (A) 0.5 k/uL (0-1.0); Monocytes % (A) 6 %; Neutrophils # (A) 5.2 k/uL (1.3-7.7); Neutrophils % (A) 68 %; Poikilocytosis Slight; RBC 3.58 m/uL (4.30-5.90); RDW 15.3 % (11.5-15.5); WBC 7.7 k/uL (3.8-10.6)
[2016-05-04 15:03] LABS: Ionized Calcium 5.2 mg/dL (4.5-5.3)
[2016-05-04 15:27] LABS: Anion Gap 9 mmol/L; Blood Urea Nitrogen 17 mg/dL (9-20); Calcium 8.9 mg/dL (8.4-10.2); Carbon Dioxide 32 mmol/L (22-30); Chloride 104 mmol/L (98-107); Glucose 119 mg/dL (74-99); Magnesium 1.8 mg/dL (1.6-2.3); Non-African American GFR(MDRD) >60 (>60 ml/min/1.73 sqM); Potassium 3.9 mmol/L (3.5-5.1); Sodium 145 mmol/L (137-145)
[2016-05-04 17:19] LABS: Glucose,Whole Blood 127 mg/dL (75-99)
[2016-05-04] MEDS ORDERED: Magnesium Replacement Protocol 1 EACH MISC MISCELLANE PRN (18:45)
[2016-05-04] MEDS ORDERED: Potassium Replacement Protocol 1 EACH MISC MISCELLANE PRN (18:46)
[2016-05-04] MEDS ORDERED: POTASSIUM CHLORIDE ER 20 MEQ TAB.ER PO SCH (19:00)
[2016-05-04] MEDS: MAGNESIUM SULFATE-D5W PMX 1 GM in DEXTROSE/WATER 1 100ML.BAG IVPB SCH ×2 (20:01→21:11)
[2016-05-04 20:59] LABS: Glucose,Whole Blood 125 mg/dL (75-99)
[2016-05-05] MEDS ORDERED: POTASSIUM CHLORIDE ER 20 MEQ TAB.ER PO SCH
[2016-05-05 02:00] LABS: Glucose,Whole Blood 114 mg/dL (75-99)
[2016-05-05 06:38] LABS: Glucose,Whole Blood 100 mg/dL (75-99)
[2016-05-05 06:42] LABS: Anion Gap 8 mmol/L; Blood Urea Nitrogen 18 mg/dL (9-20); Calcium 8.6 mg/dL (8.4-10.2); Carbon Dioxide 30 mmol/L (22-30); Chloride 104 mmol/L (98-107); Glucose 105 mg/dL (74-99); Non-African American GFR(MDRD) >60 (>60 ml/min/1.73 sqM); Potassium 4.2 mmol/L (3.5-5.1); Sodium 142 mmol/L (137-145)
[2016-05-05] MEDS: INSULIN LISPRO (humaLOG) 300 UNIT/3 ML VIAL SQ SCH ×4 (06:49→22:12)
[2016-05-05] MEDS: PANTOPRAZOLE 40 MG TABLET PO SCH (06:50)
[2016-05-05 07:34] LABS: CH 29.3; CHCM 30.8; HCT 32.5 % (39.0-53.0); HDW 3.47; HGB 10.1 gm/dL (13.0-17.5); Hypochromasia Marked; MCH 29.7 pg (25.0-35.0); MCV 95.8 fL (80.0-100.0); Mean Platelet Volume 7.3; Poikilocytosis Slight; RBC 3.39 m/uL (4.30-5.90); RDW 15.1 % (11.5-15.5); WBC 7.7 k/uL (3.8-10.6)
--- NOTE | 2016-05-05 07:52 | XR ---
EXAMINATION TYPE: XR chest 2V DATE OF EXAM: 05/05/2016 7:41 AM COMPARISON: Chest x-ray from yesterday HISTORY: Post op CABG procedure. TECHNIQUE: Frontal and lateral views of the chest are obtained. FINDINGS: A left-sided PICC line is stable in appearance. Sternal wires and mediastinal clips from C ABG procedure are redemonstrated. There is persistent cardiomegaly with atherosclerotic and ectatic t horacic aorta. Mild central vascular congestion is felt present. There is persistent bibasilar opacit y consistent with left greater than right bilateral lower lung infiltrate and/or atelectasis and prob able small bilateral pleural effusions. Degenerative change right glenohumeral joint is noted. IMPRESSION: Overall stable findings, cardiomegaly with mild central vascular congestion and persiste nt bibasilar infiltrate and/or atelectasis and likely small bilateral pleural effusions all redemonst rated.
--- NOTE | 2016-05-05 08:11 | P.PN ---
Subjective Principal diagnosis: POD: #17, triple vessel coronary artery bypass grafting using the left internal mammary artery to the left anterior descending coronary artery, a reverse greater saphenous vein graft from the aorta to the early arising posterior descending coronary artery, a reverse greater saphenous vein graft from the aorta to the intramyocardial ramus intermedius artery proximally. 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 Intraoperative transesophageal echocardiogram and Epi-aortic scanning. Endoscopic vein harvesting of the right greater saphenous vein. #17 Reexploration for postoperative bleeding. Patient lying in bed in no apparent distress. About to go downstairs for chest x-ray. Denies pain. Denies shortness of breath. Objective - Vital Signs Vital signs: Vital Signs Temp 96.9 F L 05/05/16 04:00 Pulse 77 05/05/16 04:00 Resp 18 05/05/16 04:00 BP 110/55 05/05/16 04:00 Pulse Ox 97 05/05/16 04:00 Intake & Output 05/04/16 05/05/16 05/05/16 18:59 06:59 18:59 Output Total 300 600 Balance -300 -600 Weight 121.4 kg Output: Urine 300 600 Other: Voiding Method Urinal Urinal # Voids 1 1 # Bowel Movements 1 ABP, PAP, CO, CI - Last Documented Arterial Blood Pressure 120/65 Pulmonary Artery Pressure 31/25 Cardiac Output 7 Cardiac Index 3.0 - Constitutional General appearance: Present: no acute distress, obese - Respiratory Details: Lungs sounds diminished bilaterally. Respirations even and nonlabored. - Cardiovascular Details: Clear S1-S2. Regular rate and rhythm. Normal sinus rhythm on telemetry. Bilateral lower extremity edema 2+ present. Palpable radial, DP, PT pulses. Chest stable. Heart hugger in place. - Gastrointestinal Gastrointestinal Comment(s): Abdomen soft, nontender. Active bowel sounds 4 quadrants. Bowel movement yesterday. - Genitourinary Genitourinary Comment(s): Patient is voiding clear yellow urine per urinal. Penile and scrotal edema very diminished. - Integumentary Integumentary Comment(s): Skin warm, dry. Anterior chest wall incision covered with dry intact silver dressing. Chest tube sites well approximated. - Neurologic Neurologic Comment(s): Alert and oriented 3. Following all commands. - Psychiatric Psychiatric: Present: appropriate affect, intact judgment & insight - Allied health notes Allied health notes reviewed: PT (Currently going down for chest x-ray.) - Labs CBC & Chem 7: 05/05/16 05:40 05/05/16 05:40 Labs: Abnormal Lab Results - Last 24 Hours (Table) 05/04/16 05/04/16 05/04/16 Range/Units 07:49 12:26 14:42 RBC 3.58 L (4.30-5.90) m/uL Hgb 10.4 L (13.0-17.5) gm/dL Hct 34.7 L (39.0-53.0) % MCHC 30.0 L (31.0-37.0) g/dL Carbon Dioxide (22-30) mmol/L Glucose (74-99) mg/dL POC Glucose (mg/dL) 145 H 133 H (75-99) mg/dL 05/04/16 05/04/16 05/04/16 Range/Units 14:42 16:40 20:47 RBC (4.30-5.90) m/uL Hgb (13.0-17.5) gm/dL Hct (39.0-53.0) % MCHC (31.0-37.0) g/dL Carbon Dioxide 32 H (22-30) mmol/L Glucose 119 H (74-99) mg/dL POC Glucose (mg/dL) 127 H 125 H (75-99) mg/dL 05/05/16 05/05/16 05/05/16 Range/Units 01:57 05:40 06:16 RBC (4.30-5.90) m/uL Hgb (13.0-17.5) gm/dL Hct (39.0-53.0) % MCHC (31.0-37.0) g/dL Carbon Dioxide (22-30) mmol/L Glucose 105 H (74-99) mg/dL POC Glucose (mg/dL) 114 H 100 H (75-99) mg/dL Assessment and Plan (1) Congestive heart failure Narrative/Plan: Continue beta racheal, JESSE inhibitor. Daily weights, low-sodium diet. Heart failure teaching. Status: Acute (2) NSTEMI (non-ST elevated myocardial infarction) Narrative/Plan: Continue Lopressor 50 mg PO 3 times a day. Continue aspirin, Plavix,heparin and statin Status: Acute (3) Status post aorto-coronary artery bypass graft Narrative/Plan: Continue his current medication regimen. Encouraged patient to stay out of bed , ambulate in the hallways. SCDs and KARON hose in place for DVT prophylaxis. Protonix in place for GI prophylaxis. Continue to encourage incentive spirometry use, coughing and deep breathing. Status: Acute (4) Hypertension Narrative/Plan: Continue Lopressor 50 mg 3 times a day. Continue lisinopril. Status: Acute (5) Obesity, Class III, BMI 40-49.9 (morbid obesity) Status: Acute (6) Postoperative anemia due to acute blood loss Narrative/Plan: Continue to monitor hemoglobin and hematocrit daily, hemoglobin continues to be stable. Status: Acute (7) Postoperative acute respiratory failure Narrative/Plan: Continue to encourage incentive spirometry, coughing, deep breathing. Wean O2 as tolerated. Status: Acute Plan: Plan: 1. Continue aspirin, beta racheal, statin, JESSE inhibitor. 2. Continue amiodarone for A. fib prophylaxis. 3. Encourage incentive spirometry, coughing and deep breathing. 4. Encourage increased time out of bed and ambulation in the hallway. Patient needs a lot of encouragement to increase activity. Continue to work with physical therapy. 5. Continue to monitor urine output. No need for Nava at this time. 6. Add Lasix 40 mg by mouth daily. 7. Hopefully discharge to rehab soon. Time with Patient: Greater than 30
[2016-05-05] MEDS: IPRATROPIUM-ALBUTEROL 3 ML NEB INHALATION SCH ×4 (08:24→19:35)
[2016-05-05] MEDS: AMOXIC-POT CLAV 875-125MG 1 EACH TAB PO SCH ×2 (09:02→22:12)
[2016-05-05] MEDS: AMIODARONE 100 MG TAB PO SCH ×2 (09:02→22:11)
[2016-05-05] MEDS: HEPARIN SODIUM,PORCINE 5,000 UNIT/ML 1 ML VIAL SQ SCH ×3 (09:02→22:13)
[2016-05-05] MEDS: CLOPIDOGREL 75 MG TAB PO SCH (09:03)
[2016-05-05] MEDS: METOPROLOL TARTRATE 50 MG TAB PO SCH ×3 (09:03→22:13)
[2016-05-05] MEDS: BACITRACIN 500 UNIT/GM OINT 28.4 GM TUBE TOPICAL SCH ×2 (09:03→22:12)
[2016-05-05] MEDS: ASPIRIN 81 MG CHEW PO SCH (09:03)
[2016-05-05] MEDS: ATORVASTATIN 40 MG TAB PO SCH (09:03)
[2016-05-05] MEDS: FUROSEMIDE 40 MG TAB PO SCH (09:10)
[2016-05-05] MEDS: CHOLECALCIFEROL 1,000 UNIT TAB PO SCH (09:10)
--- NOTE | 2016-05-05 10:48 | P.PN ---
Subjective This is a 76-year-old patient who was admitted back on April 13 with a diagnosis of non-ST segment elevation myocardial infarction and shortness of breath. The patient went to the [facility] on April 15 and was found to have three-vessel disease with aortic stenosis. On the , the patient went to the operating room and had a three-vessel bypass grafting and aortic valve replacement. Today's postop day #12. The patient also to go back to the or on the same day for bleeding. In addition, the patient has had 4 bronchoscopies for lung collapse and retained secretions. He was finally extubated on the . The patient has had difficulty swallowing and is been some concerns about chronic aspiration. Going for a modified barium swallow today. The patient's currently on 4 L nasal cannula and IV of D5W at 50 mL now and Cordarone 0.5 mg/m for his atrial fibrillation. In addition to his three-vessel bypass grafting aortic valve replacement for aortic stenosis, the patient has a history of ventilator dependent respiratory failure with ultimate extubation on April 26, CAD, heart failure, scoliosis, benign prostatic hypertrophy, hyperlipidemia, DJD, acute kidney injury, obesity , and postoperative anemia. Progress note dated 05/01/2016 This is a 76-year-old gentleman who continues to show slow improvement. He is currently on O2 at 4 L nasal cannula. He is getting a D5.45 IV at 50 mL an hour. The patient was admitted way back on April 13 with a diagnosis of non- ST segment elevation myocardial infarction. The patient a three-vessel bypass grafting aortic valve replacement for aortic stenosis. He was extubated on April 26. Progress note dated 05/03/2016 76-year-old white male who is currently on O2 at 4 L and an IV which is been troubled. He status post 3 vessel bypass grafting in an aortic valve replacement for aortic stenosis. Extubated on April 26. He was admitted on April 13 with a diagnosis of non-ST segment elevation myocardial infarction. The patient continued to show steady improvement but is not real motivated. Doesn't do real well with his ambulation or his use of incentive spirometer. No shortness of breath cough wheezing chest pain or other complaints today. Progress note dated 05/05/2016 A 76-year-old white male was moved out of the ICU yesterday. Dr. Rodriguez gave the most torres talking to. He status post three-vessel bypass grafting and aortic valve replacement for aortic stenosis. He was extubated from mechanical ventilator on April 26. Since that time, he's been making slow progress. His not real motivated. He has a history of non-ST segment elevation myocardial infarction. He likely will be discharged to some [facility] retirement or rehab facility in the near future. No new complaints today. Doing about the same. Objective - Vital Signs Vital signs: Vital Signs Temp 96.1 F L 05/05/16 08:00 Pulse 70 05/05/16 08:00 Resp 18 05/05/16 08:00 BP 105/53 05/05/16 08:00 Pulse Ox 97 05/05/16 08:00 Intake & Output 05/04/16 05/05/16 05/05/16 18:59 06:59 18:59 Output Total 300 600 100 Balance -300 -600 -100 Weight 121.4 kg Output: Urine 300 600 100 Other: Voiding Method Urinal Urinal # Voids 1 1 # Bowel Movements 1 1 ABP, PAP, CO, CI - Last Documented Arterial Blood Pressure 120/65 Pulmonary Artery Pressure 31/25 Cardiac Output 7 Cardiac Index 3.0 - Exam No acute distress, oriented 3. HEENT examination is grossly unremarkable. Mucous membranes are moist. Supple. Full range of motion. No adenopathy. Cardiovascular examination reveals regular rhythm rate. S1-S2 normal. No S3- S4. No murmur. Next Lungs reveal bibasilar crackles. Abdomen soft bowel sounds are heard. Extremities are intact. - Labs CBC & Chem 7: 05/05/16 05:40 05/05/16 05:40 Labs: Abnormal Lab Results - Last 24 Hours (Table) 05/04/16 05/04/16 05/04/16 Range/Units 12:26 14:42 14:42 RBC 3.58 L (4.30-5.90) m/uL Hgb 10.4 L (13.0-17.5) gm/dL Hct 34.7 L (39.0-53.0) % MCHC 30.0 L (31.0-37.0) g/dL Carbon Dioxide 32 H (22-30) mmol/L Glucose 119 H (74-99) mg/dL POC Glucose (mg/dL) 133 H (75-99) mg/dL 0105/04/16 05/05/16 Range/Units 16:40 20:47 01:57 RBC (4.30-5.90) m/uL Hgb (13.0-17.5) gm/dL Hct (39.0-53.0) % MCHC (31.0-37.0) g/dL Carbon Dioxide (22-30) mmol/L Glucose (74-99) mg/dL POC Glucose (mg/dL) 127 H 125 H 114 H (75-99) mg/dL 05/05/16 05/05/16 05/05/16 Range/Units 05:40 05:40 06:16 RBC 3.39 L (4.30-5.90) m/uL Hgb 10.1 L (13.0-17.5) gm/dL Hct 32.5 L (39.0-53.0) % MCHC (31.0-37.0) g/dL Carbon Dioxide (22-30) mmol/L Glucose 105 H (74-99) mg/dL POC Glucose (mg/dL) 100 H (75-99) mg/dL Assessment and Plan Plan: Plan dated 04/30/2016 The patient will go for a modified barium swallow. Ex The patient currently remains on his IV Cordarone at 0.5 mg/m. The patient's are reasonably stable. The patient has an overall guarded prognosis. Additional recommendations suggestions are forthcoming. Plan dated 05/01/2016 The patient did fail his modified barium swallow from yesterday. He continues to BMP O. The patient will continue to be maintained here in the ICU is guarded. Medications ALLERGIES x-rays and so forth are reviewed. Next Plan dated 05/03/2016 The patient is making slow progress. No discharge recommendations are made. X- rays labs medications are reviewed. We'll follow. Plan dated 05/05/2016 The patient continues to make slow progress. He is in a bit better on his incentive spirometer. Labs x-rays are reviewed. Chest x-ray shows some central venous congestion and his chest x-rays basically been relatively stable. Medications reviewed. Labs are reviewed, etc. I did speak to Dr. Rodriguez about the patient yesterday. We both agree that the patient really needs to become much more motivated to start working on getting better on his own. Will probably be discharged to rehab facility or retirement. Additional recommendations suggestions are forthcoming. Time with Patient: Less than 30
[2016-05-05 11:43] LABS: Glucose,Whole Blood 92 mg/dL (75-99)
--- NOTE | 2016-05-05 15:04 | P.PN ---
Subjective This is a pleasant 76-year-old gentleman who is status post coronary artery bypass grafting along with aortic valve replacement. From the cardiovascular standpoint overview, he seems to be doing good. He had one episode of A. fib but he continues to be in normal sinus mechanism. Beside that, he continues to be doing good from the cardiovascular standpoint overview. I will continue the current medical treatment which included dual antiplatelet therapy as well as a statin. We'll continue following up with him. Objective - Vital Signs Vital signs: Vital Signs Temp 96.1 F L 05/05/16 08:00 Pulse 70 05/05/16 12:00 Resp 16 05/05/16 12:00 BP 101/53 05/05/16 12:00 Pulse Ox 98 05/05/16 12:00 Intake & Output 05/04/16 05/05/16 05/05/16 18:59 06:59 18:59 Intake Total 118 Output Total 300 600 150 Balance -300 -600 -32 Weight 121.4 kg Intake: Oral 118 Output: Urine 300 600 150 Other: Voiding Method Urinal Urinal # Voids 1 1 # Bowel Movements 1 2 ABP, PAP, CO, CI - Last Documented Arterial Blood Pressure 120/65 Pulmonary Artery Pressure 31/25 Cardiac Output 7 Cardiac Index 3.0 - Constitutional General appearance: Present: no acute distress - Labs CBC & Chem 7: 05/05/16 05:40 05/05/16 05:40 Labs: Abnormal Lab Results - Last 24 Hours (Table) 05/04/16 05/04/16 05/04/16 Range/Units 14:42 16:40 20:47 RBC (4.30-5.90) m/uL Hgb (13.0-17.5) gm/dL Hct (39.0-53.0) % Carbon Dioxide 32 H (22-30) mmol/L Glucose 119 H (74-99) mg/dL POC Glucose (mg/dL) 127 H 125 H (75-99) mg/dL 05/05/16 05/05/16 05/05/16 Range/Units 01:57 05:40 05:40 RBC 3.39 L (4.30-5.90) m/uL Hgb 10.1 L (13.0-17.5) gm/dL Hct 32.5 L (39.0-53.0) % Carbon Dioxide (22-30) mmol/L Glucose 105 H (74-99) mg/dL POC Glucose (mg/dL) 114 H (75-99) mg/dL 05/05/16 Range/Units 06:16 RBC (4.30-5.90) m/uL Hgb (13.0-17.5) gm/dL Hct (39.0-53.0) % Carbon Dioxide (22-30) mmol/L Glucose (74-99) mg/dL POC Glucose (mg/dL) 100 H (75-99) mg/dL Assessment and Plan Plan: Assessment #1 status post CABG along with aVR Plan #1 continue the current medical treatment #2 continue following up with the patient
[2016-05-05 16:45] LABS: Glucose,Whole Blood 107 mg/dL (75-99)
[2016-05-05] MEDS: DOCUSATE ORAL SOLN 100 MG/10 ML CUP PO SCH (17:49)
[2016-05-05] MEDS: LISINOPRIL 2.5 MG TAB PO SCH (17:49)
[2016-05-05] MEDS: ACETAMINOPHEN TAB 325 MG TAB PO PRN (17:53)
[2016-05-05 20:57] LABS: Glucose,Whole Blood 123 mg/dL (75-99)
[2016-05-06] MEDS: INSULIN LISPRO (humaLOG) 300 UNIT/3 ML VIAL SQ SCH ×4 (06:57→22:53)
[2016-05-06] MEDS: PANTOPRAZOLE 40 MG TABLET PO SCH (07:02)
[2016-05-06 07:12] LABS: Glucose,Whole Blood 94 mg/dL (75-99)
--- NOTE | 2016-05-06 07:12 | P.PN ---
<Nadia Nix - Last Filed: 05/06/16 07:04> Subjective Principal diagnosis: POD: #18, triple vessel coronary artery bypass grafting using the left internal mammary artery to the left anterior descending coronary artery, a reverse greater saphenous vein graft from the aorta to the early arising posterior descending coronary artery, a reverse greater saphenous vein graft from the aorta to the intramyocardial ramus intermedius artery proximally. 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 Intraoperative transesophageal echocardiogram and Epi-aortic scanning. Endoscopic vein harvesting of the right greater saphenous vein. #18 Reexploration for postoperative bleeding. Patient sitting up in chair in no apparent distress. Denies pain. Denies shortness of breath. He wants to get out of hospital but would like to go to [facility]. Objective - Vital Signs Vital signs: Vital Signs Temp 97.6 F 05/06/16 04:00 Pulse 80 05/06/16 04:00 Resp 18 05/06/16 04:00 BP 110/55 05/06/16 04:00 Pulse Ox 98 05/06/16 04:00 Intake & Output 05/05/16 05/06/16 05/06/16 18:59 06:59 18:59 Intake Total 354 Output Total 375 400 Balance -21 -400 Weight 121.2 kg Intake: Oral 354 Output: Urine 375 400 Other: # Voids 1 # Bowel Movements 2 ABP, PAP, CO, CI - Last Documented Arterial Blood Pressure 120/65 Pulmonary Artery Pressure 31/25 Cardiac Output 7 Cardiac Index 3.0 - Constitutional General appearance: Present: no acute distress, obese - Respiratory Details: Lung sounds diminished bilaterally. Respirations even and nonlabored. Patient remains on 2 L nasal cannula. Incentive spirometry this morning 500-700 mL. - Cardiovascular Details: Clear S1-S2. No murmurs rubs or gallops. Regular rate and rhythm. Normal sinus rhythm on telemetry. Heart hugger remains in place. Pitting edema remains to bilateral lower extremities. Palpable radial, DP, PT pulses. - Gastrointestinal Gastrointestinal Comment(s): Abdomen soft nontender. Active bowel sounds 4 quadrants. Bowel movement yesterday. Patient tolerating diet. - Genitourinary Genitourinary Comment(s): Patient continues to void clear yellow urine per urinal. Penile scrotal edema almost gone. - Integumentary Integumentary Comment(s): Skin warm, dry. Anterior chest wall incision covered with dry intact silver dressing. Chest tube sites well approximated. Right lower extremity EVH site well approximated. - Neurologic Neurologic Comment(s): Alert and oriented 3. Following all commands. - Musculoskeletal Musculoskeletal Comment(s): Able to get up to chair with assist 1. - Psychiatric Psychiatric: Present: appropriate affect, intact judgment & insight - Allied health notes Allied health notes reviewed: nursing - Labs CBC & Chem 7: 05/05/16 05:40 05/05/16 05:40 Labs: Abnormal Lab Results - Last 24 Hours (Table) 05/05/16 05/05/16 05/05/16 Range/Units 05:40 16:42 20:55 RBC 3.39 L (4.30-5.90) m/uL Hgb 10.1 L (13.0-17.5) gm/dL Hct 32.5 L (39.0-53.0) % POC Glucose (mg/dL) 107 H 123 H (75-99) mg/dL Assessment and Plan (1) Congestive heart failure Narrative/Plan: Continue beta racheal, JESSE inhibitor. Daily weights, low-sodium diet. Heart failure teaching. Status: Acute (2) NSTEMI (non-ST elevated myocardial infarction) Narrative/Plan: Continue Lopressor 50 mg PO 3 times a day. Continue aspirin, Plavix,heparin and statin Status: Acute (3) Status post aorto-coronary artery bypass graft Narrative/Plan: Continue his current medication regimen. Encouraged patient to stay out of bed , ambulate in the hallways. SCDs and KARON hose in place for DVT prophylaxis. Protonix in place for GI prophylaxis. Continue to encourage incentive spirometry use, coughing and deep breathing. Continue to encourage use of heart hugger. Status: Acute (4) Hypertension Narrative/Plan: Continue Lopressor 50 mg 3 times a day. Continue lisinopril. Status: Acute (5) Obesity, Class III, BMI 40-49.9 (morbid obesity) Status: Acute (6) Postoperative anemia due to acute blood loss Narrative/Plan: Continue to monitor hemoglobin and hematocrit periodically, hemoglobin continues to be stable. No active signs of bleeding. Status: Acute (7) Postoperative acute respiratory failure Narrative/Plan: Continue to encourage incentive spirometry, coughing, deep breathing. Wean O2 as tolerated. Status: Acute Plan: Plan: 1. Continue aspirin, beta racheal, statin, JESSE inhibitor, Lasix. 2. Continue amiodarone for A. fib prophylaxis. 3. Encourage incentive spirometry, coughing and deep breathing. 4. Encourage increased time out of bed and ambulation in the hallway. Patient needs a lot of encouragement to increase activity. Continue to work with physical therapy. 5. Continue to monitor urine output. No need for Nava at this time. 6. Hopefully discharge to rehab versus long-term care soon. Patient prefers [facility]. Time with Patient: Greater than 30 <Shoaib Rodriguez - Last Filed: 05/06/16 08:12> Subjective Ready for discharge to rehabilitation facility. Objective - Vital Signs Vital signs: Vital Signs Temp 97.6 F 05/06/16 04:00 Pulse 72 05/06/16 08:08 Resp 18 05/06/16 04:00 BP 110/55 05/06/16 04:00 Pulse Ox 98 05/06/16 04:00 Intake & Output 05/05/16 05/06/16 05/06/16 18:59 06:59 18:59 Intake Total 354 Output Total 375 400 Balance -21 -400 Weight 121.2 kg Intake: Oral 354 Output: Urine 375 400 Other: # Voids 1 # Bowel Movements 2 ABP, PAP, CO, CI - Last Documented Arterial Blood Pressure 120/65 Pulmonary Artery Pressure 31/25 Cardiac Output 7 Cardiac Index 3.0 - Labs CBC & Chem 7: 05/05/16 05:40 05/05/16 05:40 Labs: Abnormal Lab Results - Last 24 Hours (Table) 05/05/16 05/05/16 Range/Units 16:42 20:55 POC Glucose (mg/dL) 107 H 123 H (75-99) mg/dL
[2016-05-06] MEDS: IPRATROPIUM-ALBUTEROL 3 ML NEB INHALATION SCH ×4 (08:07→19:14)
[2016-05-06] MEDS: HEPARIN SODIUM,PORCINE 5,000 UNIT/ML 1 ML VIAL SQ SCH ×3 (08:41→22:53)
[2016-05-06] MEDS: CLOPIDOGREL 75 MG TAB PO SCH (08:41)
[2016-05-06] MEDS: AMIODARONE 100 MG TAB PO SCH ×2 (08:41→22:52)
[2016-05-06] MEDS: ASPIRIN 81 MG CHEW PO SCH (08:42)
[2016-05-06] MEDS: ATORVASTATIN 40 MG TAB PO SCH (08:42)
[2016-05-06] MEDS: AMOXIC-POT CLAV 875-125MG 1 EACH TAB PO SCH ×2 (08:42→22:53)
[2016-05-06] MEDS: BACITRACIN 500 UNIT/GM OINT 28.4 GM TUBE TOPICAL SCH ×2 (08:42→22:53)
[2016-05-06] MEDS: FUROSEMIDE 40 MG TAB PO SCH (08:43)
[2016-05-06] MEDS: DOCUSATE ORAL SOLN 100 MG/10 ML CUP PO SCH (08:44)
[2016-05-06] MEDS: METOPROLOL TARTRATE 50 MG TAB PO SCH ×3 (08:44→22:53)
[2016-05-06] MEDS: LISINOPRIL 2.5 MG TAB PO SCH (08:45)
[2016-05-06 11:50] LABS: Glucose,Whole Blood 106 mg/dL (75-99)
--- NOTE | 2016-05-06 12:08 | P.PN ---
Subjective This 76-year-old male patient , post 3 vessel bypass surgery including PHAM to LAD saphenous vein graft to diagonal and ramus branches and aortic valve replacement was currently back in the intensive care unit and the patient is postop day 18. Note that the patient was taken back to the operating room after he arrived the ICU. The patient was having bleeding from his mediastinal chest tubes. Further examination was done and the bleeding site was identified and the local hemostasis was achieved and following that the patient was brought back to the intensive care unit. Patient's post operative course was complicated by development of a right lung pneumonia for which she required multiple bronchoscopies for therapeutic airway suctioning and removal of it is plugged. He ultimately improved and was extubated and currently he is only on 2 L about 2 by nasal cannula. His most recent chest x-ray shows atelectatic change lung bases bilaterally and small better pleural effusions and cardiomegaly. No change in mental status. No hemodynamic instability for now. Objective - Vital Signs Vital signs: Vital Signs Temp 97 F L 05/06/16 08:00 Pulse 76 05/06/16 08:24 Resp 18 05/06/16 08:00 BP 98/53 05/06/16 08:00 Pulse Ox 98 05/06/16 08:00 Intake & Output 05/05/16 05/06/16 05/06/16 18:59 06:59 18:59 Intake Total 354 118 Output Total 375 400 Balance -21 -400 118 Weight 121.2 kg Intake: Oral 354 118 Output: Urine 375 400 Other: # Voids 1 # Bowel Movements 2 1 ABP, PAP, CO, CI - Last Documented Arterial Blood Pressure 120/65 Pulmonary Artery Pressure 31/25 Cardiac Output 7 Cardiac Index 3.0 - Exam Head exam was generally normal. There was no scleral icterus or corneal arcus. Mucous membranes were moist.Neck was supple and without jugular venous distension, thyromegaly, or carotid bruits. Carotids were easily palpable bilaterally. There was no adenopathy. Lung sounds are diminished bilaterally lung bases.Cardiac exam revealed the PMI to be normally situated and sized. The rhythm was regular and no extrasystoles were noted during several minutes of auscultation. The first and second heart sounds were normal and physiologic splitting of the second heart sound was noted. There were no murmurs, rubs, clicks, or gallops. Sternum stable clean and intact. Surgical wound site is dry and clean.Abdominal exam revealed normal bowel sounds. The abdomen was soft , non-tender, and without masses, organomegaly, or appreciable enlargement of the abdominal aorta. Extremities reveal small edema in the legs bilaterally. No cyanosis or clubbing. Surgical wound sites all dry and clean. - Labs CBC & Chem 7: 05/05/16 05:40 05/05/16 05:40 Labs: Abnormal Lab Results - Last 24 Hours (Table) 05/05/16 05/05/16 05/06/16 Range/Units 16:42 20:55 11:46 POC Glucose (mg/dL) 107 H 123 H 106 H (75-99) mg/dL Assessment and Plan Plan: Assessment 1 coronary artery bypass surgery and aortic valve replacement, postop day #18. 2 postoperative thoracic exploration for bleeding 3 CHF with a preop ejection fraction of 20-25% 4 postoperative right lower lobe pneumonia status post multiple bronchoscopies and therapeutic airway suctioning 5 scoliosis of the thoracic spine 6 benign prostatic hypertrophy 7 hyperlipidemia. 8 osteoarthritis 9 acute kidney injury, improved 10 obesity 11 postoperative anemia Plan Continue routine postoperative care. Incentive spirometer. Augmentin to be completed to aggressive the right lower lobe pneumonia. Discharge to [facility] for further recuperation and rehabilitation.
[2016-05-06] MEDS: CHOLECALCIFEROL 1,000 UNIT TAB PO SCH (12:27)
--- NOTE | 2016-05-06 12:41 | P.PN ---
Subjective Principal diagnosis: Status post CABG and aortic valve replacement This is a pleasant 76-year-old gentleman who is status post coronary artery bypass grafting surgery and aortic valve replacement. He was seen and examined on the telemetry unit today, sitting up in the chair at bedside. Continues to be in a normal sinus rhythm. Blood pressure and heart rate stable. Patient denies any chest discomfort, breathing is stable. Arrangements are being made for transfer to rehab. Objective - Vital Signs Vital signs: Vital Signs Temp 97 F L 05/06/16 08:00 Pulse 62 05/06/16 11:52 Resp 19 05/06/16 11:52 BP 159/89 05/06/16 11:52 Pulse Ox 97 05/06/16 11:52 Intake & Output 05/05/16 05/06/16 05/06/16 18:59 06:59 18:59 Intake Total 354 118 Output Total 375 400 Balance -21 -400 118 Weight 121.2 kg Intake: Oral 354 118 Output: Urine 375 400 Other: # Voids 1 # Bowel Movements 2 1 ABP, PAP, CO, CI - Last Documented Arterial Blood Pressure 120/65 Pulmonary Artery Pressure 31/25 Cardiac Output 7 Cardiac Index 3.0 - Exam PHYSICAL EXAMINATION: HEENT: Head is atraumatic, normocephalic. Pupils equal, round. Neck is supple. There is no elevated jugular venous pressure. HEART EXAMINATION: Heart S1 and S2, distant CHEST EXAMINATION: Lungs are clear with diminished air entry to bilateral bases. ABDOMEN: Soft, nontender. Bowel sounds are heard. No organomegaly noted. EXTREMITIES: 2+ peripheral pulses with trace evidence of peripheral edema and no calf tenderness noted. NEUROLOGIC patient is awake, alert and oriented -3. . - Labs CBC & Chem 7: 05/05/16 05:40 05/05/16 05:40 Labs: Abnormal Lab Results - Last 24 Hours (Table) 05/05/16 05/05/16 05/06/16 Range/Units 16:42 20:55 11:46 POC Glucose (mg/dL) 107 H 123 H 106 H (75-99) mg/dL Assessment and Plan (1) S/P AVR (aortic valve replacement) Status: Acute (2) Hyperlipemia Status: Acute (3) Hypertension Status: Acute (4) NSTEMI (non-ST elevated myocardial infarction) Status: Acute (5) Obesity, Class III, BMI 40-49.9 (morbid obesity) Status: Acute (6) Status post aorto-coronary artery bypass graft Status: Acute Plan: From cardiology's perspective, we will recommend to continue current medications. We will decrease the dose of amiodarone to 200 mg one tablet by mouth twice a day. Arrangements are being made for transfer to rehab. DNP note has been reviewed, I agree with a documented findings and plan of care. Patient was seen and examined.
[2016-05-06 12:48] VITALS: BMI 38.3
[2016-05-06 17:16] LABS: Glucose,Whole Blood 115 mg/dL (75-99)
[2016-05-06 20:32] LABS: Glucose,Whole Blood 125 mg/dL (75-99)
[2016-05-07 06:21] LABS: Glucose,Whole Blood 252 mg/dL (75-99)
[2016-05-07] MEDS: PANTOPRAZOLE 40 MG TABLET PO SCH (07:02)
[2016-05-07] MEDS: INSULIN LISPRO (humaLOG) 300 UNIT/3 ML VIAL SQ SCH ×2 (07:02→12:39)
--- NOTE | 2016-05-07 07:08 | PN ---
The patient was admitted with non-ST elevation myocardial infarction underwent triple vessel bypass. Patient has been fairly stable at this point in time. Will need subacute rehabilitation upon discharge. Patient has multiple medical issues including congestive heart failure without any acute exacerbation , fairly euvolemic at this point of time and atrial fibrillation. REVIEW OF SYSTEMS: CARDIOVASCULAR: No chest pain, no orthopnea, no PND, no palpitations. PULMONARY: Denied any shortness of breath. No cough or hemoptysis. GASTROINTESTINAL: No diarrhea, nausea or vomiting. No abdominal pain. Normoactive bowel sounds. NEUROLOGIC: No headaches, no weakness, no numbness. Medications were reviewed. PHYSICAL EXAMINATION: VITAL SIGNS: Temperature 97.0, pulse of 74, respiratory rate of 19, blood pressure 109/55, saturating at 97% on 2 L of O2 nasal cannula. GENERAL: ( ) gentleman alert and oriented x3. HEENT: Pupils are round and equally reacting to light. EOMI. No scleral icterus. No conjunctival pallor. Normocephalic, atraumatic. No pharyngeal erythema. No thyromegaly. CARDIOVASCULAR: S1 and S2 present. No murmurs, rubs, or gallops. PULMONARY: Chest is clear to auscultation, no wheezing or crackles. ABDOMEN: Soft, nontender, nondistended, normoactive bowel sounds. No palpable organomegaly. MUSCULOSKELETAL: No joint swelling or deformity. EXTREMITIES: The patient does have pedal edema, appears to be mostly peripheral edema. No cyanosis or clubbing. NEUROLOGICAL: Gross neurological examination did not reveal any focal deficits. SKIN: No rashes. LABORATORY DATA: None available from today. ASSESSMENT AND PLAN: 1. Status post bypass grafting postoperative day 18. 2. Ischemic cardiomyopathy with ejection fraction of 20% to 30%. Patient is euvolemic at this point of time, ( ), which will be continued. 3. Atrial fibrillation, rate controlled. 4. Chronic obstructive pulmonary disease without any acute exacerbation. 5. Acute renal failure, which resolved. 6. Morbid obesity. 7. Generalized deconditioning. 8. Acute blood loss anemia from surgery, which resolved. 9. Benign prostatic hypertrophy. Plans to continue present medication and physical therapy. Patient probably can be discharged to subacute rehab soon.
[2016-05-07] MEDS: AMIODARONE 100 MG TAB PO SCH (08:36)
[2016-05-07] MEDS: HEPARIN SODIUM,PORCINE 5,000 UNIT/ML 1 ML VIAL SQ SCH (08:36)
[2016-05-07] MEDS: AMOXIC-POT CLAV 875-125MG 1 EACH TAB PO SCH (08:36)
[2016-05-07] MEDS: FUROSEMIDE 40 MG TAB PO SCH (08:37)
[2016-05-07] MEDS: ATORVASTATIN 40 MG TAB PO SCH (08:37)
[2016-05-07] MEDS: ASPIRIN 81 MG CHEW PO SCH (08:37)
[2016-05-07] MEDS: CLOPIDOGREL 75 MG TAB PO SCH (08:37)
[2016-05-07] MEDS: DOCUSATE ORAL SOLN 100 MG/10 ML CUP PO SCH (08:38)
[2016-05-07] MEDS: BACITRACIN 500 UNIT/GM OINT 28.4 GM TUBE TOPICAL SCH (08:38)
[2016-05-07] MEDS: METOPROLOL TARTRATE 50 MG TAB PO SCH ×2 (08:39→15:20)
--- NOTE | 2016-05-07 08:50 | XR ---
EXAMINATION TYPE: XR chest 2V DATE OF EXAM: 05/07/2016 8:00 AM COMPARISON: Prior chest x-ray 05 May 2016 HISTORY: Postop median sternotomy TECHNIQUE: Frontal and lateral views of the chest are obtained. FINDINGS: Patient is post median sternotomy and aortic valve replacement. Blunting of the posterior costophrenic angles, patchy bibasilar density persists. No evident pneumothorax. Left-sided PICC line is in place, distal tip overlying the left innominate vein. Calcified granuloma suspected in the rig ht upper lobe. Patient is rotated and there are overlying cardiac leads. Heart remains enlarged. Susp ect some improvement in aeration. IMPRESSION: Similar findings, basilar atelectasis and associated effusions, cardiomegaly. There may be some interval improvement in aeration.
[2016-05-07 09:17] LABS: Anion Gap 13 mmol/L; Blood Urea Nitrogen 19 mg/dL (9-20); Calcium 8.5 mg/dL (8.4-10.2); Carbon Dioxide 26 mmol/L (22-30); Chloride 104 mmol/L (98-107); Glucose 116 mg/dL (74-99); Non-African American GFR(MDRD) >60 (>60 ml/min/1.73 sqM); Potassium 4.3 mmol/L (3.5-5.1); Sodium 143 mmol/L (137-145)
[2016-05-07] MEDS: IPRATROPIUM-ALBUTEROL 3 ML NEB INHALATION SCH ×2 (09:55→13:43)
--- NOTE | 2016-05-07 11:17 | P.PN ---
Subjective Principal diagnosis: Status post CABG and aortic valve replacement This is a pleasant 76-year-old gentleman who is status post coronary artery bypass grafting surgery and aortic valve replacement. He was seen and examined on the telemetry unit today, sitting up in the chair at bedside. Continues to be in a normal sinus rhythm. Blood pressure and heart rate stable. Patient denies any chest discomfort, breathing is stable. Arrangements are being made for transfer to rehab today. We'll decrease amiodarone to 200 mg one tablet by mouth daily. Objective - Vital Signs Vital signs: Vital Signs Temp 96.9 F L 05/07/16 08:31 Pulse 77 05/07/16 08:31 Resp 16 05/07/16 08:31 BP 107/58 05/07/16 08:31 Pulse Ox 95 05/07/16 08:31 Intake & Output 05/06/16 05/07/16 05/07/16 18:59 06:59 18:59 Intake Total 318 Output Total 200 100 Balance 318 -200 -100 Weight 121.2 kg 120.8 kg Intake: Oral 318 Output: Urine 200 100 Other: Voiding Method Urinal # Voids 1 1 # Bowel Movements 2 ABP, PAP, CO, CI - Last Documented Arterial Blood Pressure 120/65 Pulmonary Artery Pressure 31/25 Cardiac Output 7 Cardiac Index 3.0 - Exam PHYSICAL EXAMINATION: HEENT: Head is atraumatic, normocephalic. Pupils equal, round. Neck is supple. There is no elevated jugular venous pressure. HEART EXAMINATION: Heart S1 and S2, distant CHEST EXAMINATION: Lungs are clear with diminished air entry to bilateral bases. ABDOMEN: Soft, nontender. Bowel sounds are heard. No organomegaly noted. EXTREMITIES: 2+ peripheral pulses with trace evidence of peripheral edema and no calf tenderness noted. NEUROLOGIC patient is awake, alert and oriented -3. . - Labs CBC & Chem 7: 05/05/16 05:40 05/07/16 08:32 Labs: Abnormal Lab Results - Last 24 Hours (Table) 05/06/16 05/06/16 05/06/16 Range/Units 11:46 16:56 20:30 Glucose (74-99) mg/dL POC Glucose (mg/dL) 106 H 115 H 125 H (75-99) mg/dL 05/07/16 05/07/16 Range/Units 06:19 08:32 Glucose 116 H (74-99) mg/dL POC Glucose (mg/dL) 252 H (75-99) mg/dL Microbiology - Last 24 Hours (Table) 04/20/16 10:30 Fungal Culture - Preliminary Bronchoalviolar Lavage - Right Assessment and Plan (1) S/P AVR (aortic valve replacement) Status: Acute (2) Hyperlipemia Status: Acute (3) Hypertension Status: Acute (4) NSTEMI (non-ST elevated myocardial infarction) Status: Acute (5) Obesity, Class III, BMI 40-49.9 (morbid obesity) Status: Acute (6) Status post aorto-coronary artery bypass graft Status: Acute Plan: From cardiology's perspective, we will decrease amiodarone to 200 mg one tablet by mouth daily. He may be able to be transferred to rehab from cardiology's perspective. A follow-up appointment will be made with Dr. Soledad Ramirez in the office 2 weeks post discharge. DNP note has been reviewed, I agree with a documented findings and plan of care. Patient was seen and examined.
[2016-05-07 11:50] LABS: Glucose,Whole Blood 97 mg/dL (75-99)
--- NOTE | 2016-05-07 11:52 | P.PN ---
Subjective This 76-year-old male patient , post 3 vessel bypass surgery including PHAM to LAD saphenous vein graft to diagonal and ramus branches and aortic valve replacement was currently back in the intensive care unit and the patient is postop day 18. Note that the patient was taken back to the operating room after he arrived the ICU. The patient was having bleeding from his mediastinal chest tubes. Further examination was done and the bleeding site was identified and the local hemostasis was achieved and following that the patient was brought back to the intensive care unit. Patient's post operative course was complicated by development of a right lung pneumonia for which she required multiple bronchoscopies for therapeutic airway suctioning and removal of it is plugged. He ultimately improved and was extubated and currently he is only on 2 L about 2 by nasal cannula. His most recent chest x-ray shows atelectatic change lung bases bilaterally and small better pleural effusions and cardiomegaly. No change in mental status. No hemodynamic instability for now. On 05/07/2016, the patient is being seen in follow-up. No specific complaints. Is still recovering from his cardiac surgery. His postop day #19. The plan is to discharge patient to rehabilitation at [facility]. He is still using incentive spirometer. The chest x-ray from yesterday was reviewed. Rhythm stable clean and intact. Objective - Vital Signs Vital signs: Vital Signs Temp 96.9 F L 05/07/16 08:31 Pulse 77 05/07/16 08:31 Resp 16 05/07/16 08:31 BP 107/58 05/07/16 08:31 Pulse Ox 95 05/07/16 08:31 Intake & Output 05/06/16 05/07/16 05/07/16 18:59 06:59 18:59 Intake Total 318 Output Total 200 100 Balance 318 -200 -100 Weight 121.2 kg 120.8 kg Intake: Oral 318 Output: Urine 200 100 Other: Voiding Method Urinal # Voids 1 1 # Bowel Movements 2 ABP, PAP, CO, CI - Last Documented Arterial Blood Pressure 120/65 Pulmonary Artery Pressure 31/25 Cardiac Output 7 Cardiac Index 3.0 - Exam Head exam was generally normal. There was no scleral icterus or corneal arcus. Mucous membranes were moist.Neck was supple and without jugular venous distension, thyromegaly, or carotid bruits. Carotids were easily palpable bilaterally. There was no adenopathy. Lung sounds are diminished bilaterally lung bases.Cardiac exam revealed the PMI to be normally situated and sized. The rhythm was regular and no extrasystoles were noted during several minutes of auscultation. The first and second heart sounds were normal and physiologic splitting of the second heart sound was noted. There were no murmurs, rubs, clicks, or gallops. Sternum stable clean and intact. Surgical wound site is dry and clean.Abdominal exam revealed normal bowel sounds. The abdomen was soft , non-tender, and without masses, organomegaly, or appreciable enlargement of the abdominal aorta. Extremities reveal small edema in the legs bilaterally. No cyanosis or clubbing. Surgical wound sites all dry and clean. - Labs CBC & Chem 7: 05/05/16 05:40 05/07/16 08:32 Labs: Abnormal Lab Results - Last 24 Hours (Table) 05/06/16 05/06/16 05/07/16 Range/Units 16:56 20:30 06:19 Glucose (74-99) mg/dL POC Glucose (mg/dL) 115 H 125 H 252 H (75-99) mg/dL 05/07/16 Range/Units 08:32 Glucose 116 H (74-99) mg/dL POC Glucose (mg/dL) (75-99) mg/dL Microbiology - Last 24 Hours (Table) 04/20/16 10:30 Fungal Culture - Preliminary Bronchoalviolar Lavage - Right Assessment and Plan Plan: Assessment 1 coronary artery bypass surgery and aortic valve replacement, postop day #19. 2 postoperative thoracic exploration for bleeding 3 CHF with a preop ejection fraction of 20-25% 4 postoperative right lower lobe pneumonia status post multiple bronchoscopies and therapeutic airway suctioning 5 scoliosis of the thoracic spine 6 benign prostatic hypertrophy 7 hyperlipidemia. 8 osteoarthritis 9 acute kidney injury, improved 10 obesity 11 postoperative anemia Plan Continue routine postoperative care. Incentive spirometer. Augmentin to be completed to aggressive the right lower lobe pneumonia. Discharge to [facility] for further recuperation and rehabilitation.
[2016-05-07] MEDS: CHOLECALCIFEROL 1,000 UNIT TAB PO SCH (12:40)
[2016-05-07] MEDS: LISINOPRIL 2.5 MG TAB PO SCH (12:40)
[2016-05-07 12:51] VITALS: TEMP 97
--- NOTE | 2016-05-07 12:52 | P.PN ---
<Nadia Nix - Last Filed: 05/07/16 12:51> Subjective Principal diagnosis: POD: #19, triple vessel coronary artery bypass grafting using the left internal mammary artery to the left anterior descending coronary artery, a reverse greater saphenous vein graft from the aorta to the early arising posterior descending coronary artery, a reverse greater saphenous vein graft from the aorta to the intramyocardial ramus intermedius artery proximally. 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 Intraoperative transesophageal echocardiogram and Epi-aortic scanning. Endoscopic vein harvesting of the right greater saphenous vein. #19 Reexploration for postoperative bleeding. Patient sitting up in chair in no apparent distress. Denies pain. Denies shortness of breath. He wants to get out of hospital. Objective - Vital Signs Vital signs: Vital Signs Temp 96.9 F L 05/07/16 08:31 Pulse 77 05/07/16 08:31 Resp 16 05/07/16 08:31 BP 107/58 05/07/16 08:31 Pulse Ox 95 05/07/16 08:31 Intake & Output 05/06/16 05/07/16 05/07/16 18:59 06:59 18:59 Intake Total 318 Output Total 200 Balance 318 -200 Weight 121.2 kg 120.8 kg Intake: Oral 318 Output: Urine 200 Other: # Voids 1 1 # Bowel Movements 2 ABP, PAP, CO, CI - Last Documented Arterial Blood Pressure 120/65 Pulmonary Artery Pressure 31/25 Cardiac Output 7 Cardiac Index 3.0 - Constitutional General appearance: Present: no acute distress, obese - Respiratory Details: Lungs sounds diminished bilaterally. Respirations even and nonlabored. Pulse ox 95% on room air. Incentive spirometry 500-750 mL. - Cardiovascular Details: Clear S1-S2. No murmurs rubs or gallops. Regular rate and rhythm. Normal sinus rhythm on telemetry. Chest stable. Bilateral lower extremity edema still present but significantly diminished. Palpable radial, DP, PT pulses bilaterally. Heart hugger in place. - Gastrointestinal Gastrointestinal Comment(s): Abdomen soft, nontender, nondistended. Active bowel sounds 4 quadrants. Last bowel movement yesterday. Tolerating diet. - Genitourinary Genitourinary Comment(s): Patient continues to void clear yellow urine per urinal. - Integumentary Integumentary Comment(s): Skin warm, dry. Anterior chest wall incision covered with dry intact silver dressing. Chest tube sites well approximated. Right lower extremity EVH site well approximated. - Neurologic Neurologic Comment(s): Alert and oriented 3. Following all commands. - Musculoskeletal Musculoskeletal Comment(s): Able to get up in chair with assist 1. Refuses to ambulate in the hallway. - Psychiatric Psychiatric: Present: appropriate affect, intact judgment & insight - Allied health notes Allied health notes reviewed: PT - Labs CBC & Chem 7: 05/05/16 05:40 05/05/16 05:40 Labs: Abnormal Lab Results - Last 24 Hours (Table) 05/06/16 05/06/16 05/06/16 Range/Units 11:46 16:56 20:30 POC Glucose (mg/dL) 106 H 115 H 125 H (75-99) mg/dL 05/07/16 Range/Units 06:19 POC Glucose (mg/dL) 252 H (75-99) mg/dL Microbiology - Last 24 Hours (Table) 04/20/16 10:30 Fungal Culture - Preliminary Bronchoalviolar Lavage - Right - Imaging and Cardiology Chest x-ray: image reviewed Assessment and Plan (1) Congestive heart failure Narrative/Plan: Continue beta racheal, JESSE inhibitor. Daily weights, low-sodium diet. Heart failure teaching. Status: Acute (2) NSTEMI (non-ST elevated myocardial infarction) Narrative/Plan: Continue Lopressor 50 mg PO 3 times a day. Continue aspirin, Plavix,heparin and statin Status: Acute (3) Status post aorto-coronary artery bypass graft Narrative/Plan: Continue his current medication regimen. Encouraged patient to stay out of bed , ambulate in the hallways. SCDs and KARON hose in place for DVT prophylaxis. Protonix in place for GI prophylaxis. Continue to encourage incentive spirometry use, coughing and deep breathing. Continue to encourage use of heart hugger. Status: Acute (4) Hypertension Narrative/Plan: Continue Lopressor 50 mg 3 times a day. Continue lisinopril. Status: Acute (5) Obesity, Class III, BMI 40-49.9 (morbid obesity) Status: Acute (6) Postoperative anemia due to acute blood loss Narrative/Plan: Continue to monitor hemoglobin and hematocrit periodically, hemoglobin continues to be stable. No active signs of bleeding. Status: Acute (7) Postoperative acute respiratory failure Narrative/Plan: Continue to encourage incentive spirometry, coughing, deep breathing. Oxygen as needed. Status: Acute Plan: Plan: 1. Continue aspirin, beta racheal, statin, EJSSE inhibitor, Lasix. 2. Continue amiodarone for A. fib prophylaxis. 3. Encourage incentive spirometry, coughing and deep breathing. 4. Encourage increased time out of bed and ambulation in the hallway. Patient needs a lot of encouragement to increase activity. Continue to work with physical therapy. 5. Continue to monitor urine output. No need for Nava at this time. 6. Probable discharge to rehab today. Time with Patient: Greater than 30 <James Toledo - Last Filed: 05/07/16 13:12> Objective - Vital Signs Vital signs: Vital Signs Temp 97 F L 05/07/16 12:00 Pulse 71 05/07/16 13:03 Resp 20 05/07/16 12:00 BP 115/58 05/07/16 13:03 Pulse Ox 93 L 05/07/16 12:00 Intake & Output 05/06/16 05/07/16 05/07/16 18:59 06:59 18:59 Intake Total 318 0 Output Total 200 100 Balance 318 -200 -100 Weight 121.2 kg 120.8 kg Intake: Oral 318 0 Output: Urine 200 100 Other: Voiding Method Urinal # Voids 1 1 1 # Bowel Movements 2 ABP, PAP, CO, CI - Last Documented Arterial Blood Pressure 120/65 Pulmonary Artery Pressure 31/25 Cardiac Output 7 Cardiac Index 3.0 - Labs CBC & Chem 7: 05/05/16 05:40 05/07/16 08:32 Labs: Abnormal Lab Results - Last 24 Hours (Table) 05/06/16 05/06/16 05/07/16 Range/Units 16:56 20:30 06:19 Glucose (74-99) mg/dL POC Glucose (mg/dL) 115 H 125 H 252 H (75-99) mg/dL 05/07/16 Range/Units 08:32 Glucose 116 H (74-99) mg/dL POC Glucose (mg/dL) (75-99) mg/dL Microbiology - Last 24 Hours (Table) 04/20/16 10:30 Fungal Culture - Preliminary Bronchoalviolar Lavage - Right Assessment and Plan Plan: Amiodarone to be decreased to maintenance dose at this point. Will increase afterload reduction. D/C PICC line. Discuss need for ABX with pulmonary. we will set up lifevest at the rehab center as his ejection fraction remains around 30% on his last 2-D echo.
[2016-05-07 15:16] VITALS: BP 127/58; PULSE 74; RESP 16
--- NOTE | 2016-05-07 15:49 | P.DS ---
Providers Date of admission: 04/13/16 11:52 Attending physician: Negro Strong MD Consults: 05/01/16 14:56 Consult Physician Routine Consulting Provider: Ricardo Lerma Consult Reason/Comments: inpt rehab Do you want consulting provider notified?: Yes 04/15/16 14:21 Consult Physician Routine Consulting Provider: Karsten Sales Consult Reason/Comments: INTENSIVE CARE MANAGEMENT Do you want consulting provider notified?: Yes 04/15/16 14:40 Consult Physician Routine Consulting Provider: James Toledo Consult Reason/Comments: CABG CONSULT Do you want consulting provider notified?: Yes 04/15/16 17:30 Consult Anesthesia Routine Consulting Provider: Anesthesia,Services Consult Reason/Comments: Cardiac Surgery Pre-Op 04/16/16 11:53 Consult Physician Urgent Consulting Provider: Karly Benítez Consult Reason/Comments: Pre op dental clearance Do you want consulting provider notified?: Yes 04/17/16 09:09 Consult Anesthesia Routine Consulting Provider: Anesthesia,Services Consult Reason/Comments: Cardiac Surgery Pre-Op 04/18/16 14:58 Consult Physician Routine Consulting Provider: Negro Strong Consult Reason/Comments: Medical and blood sugar management Do you want consulting provider notified?: Yes Primary care physician: [facility] Course: FINAL DIAGNOSIS: 1.[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] 2.[Severe aortic valve stenosis] 3.[Severe left ventricular dysfunction] 4.[Moderate mitral valve regurgitation] 5.[Mild tricuspid valve regurgitation] 6.[Hyperlipidemia] 7.[Congestive heart failure, with ejection fraction of 20-25%.] 8.[Postoperative bleeding with bleeding from the ventricular pacing wire site in the right ventricle.] 9.[Non-ST elevation myocardial infarction this admission with troponins elevated up to 5.170.] 10.[Osteoarthritis] 11.[Obesity] 12.[Hypertension] 13.[Remote history of nicotine dependence.] 14.[Mild chronic kidney disease] 15.[Postoperative right lower lobe atelectasis/right lower lobe pneumonia with purulent respiratory secretions and mucous plug, positive sputum culture Eikenella species.] 16.[Postoperative paroxysmal atrial fibrillation] PRINCIPAL PROCEDURE: 1.[Urgent triple vessel coronary artery bypass grafting using the left internal mammary artery to the left anterior descending coronary artery, reverse later saphenous vein graft from aorta to the early arising posterior descending coronary artery, a reverse greater saphenous vein graft from the aorta to the intra-myocardial ramus intermedius artery proximally.] 2.[Aortic valve replacement using a #25 mm pericardial bioprosthesis, magna ease.] 3.[Endoscopic harvesting of the right greater saphenous vein.] 4.[Intraoperative transesophageal echocardiogram and epi-aortic scanning.] 5.[Re-sternotomy and control of bleeding and evacuation of clots.] 6.[Left heart catheterization and coronary angiography.] 7.[Postoperative Bronchoscopy 4] 8.[Placement of peripherally inserted central catheter] HISTORY OF PRESENT ILLNESS: [This is a 76-year-old gentleman who is followed through a [facility] and sees Tai Jorgensen physician public health assistant on outpatient basis. On the April 13 2016 the patient presented to the emergency department here at [facility] with complaints of shortness of breath which had been progressively getting worse over a 2 day period. The patient also had complaints of palpitations but denied any chest discomfort upon arrival.] HOSPITAL COURSE:[The patient was admitted to the hospital and due to the patient 's presenting symptoms he was evaluated by Dr. HARVINDER Ramirez from cardiology. The was noted to have elevated troponins as high as 5.170, and his BNP level was 8800. For further evaluation the patient underwent a 2-D echocardiogram which showed him to have mild concentric left ventricular hypertrophy, moderate global hypokinesia of his left ventricle, overall left ventricular systolic function to be severely impaired with an ejection fraction of 20-25%, and moderate aortic valve stenosis with a maximum peak gradient of 42.15 mmHg and a mean gradient of 27.71 mmHg. On 04/15/2016 the patient underwent a cardiac catheterization which demonstrated a total occlusion of his right coronary artery which is a chronic occlusion, a 70-75% distal left main stenosis, a 70% stenosis to his proximal left anterior descending coronary artery and a nondominant circumflex which has minor irregularities. The above-mentioned studies were reviewed with the patient by Dr. HAVRINDER Ramirez and by Dr. Toledo from cardiothoracic surgery and an urgent coronary artery bypass grafting surgery with aortic valve replacement was recommended. After obtaining consent the patient underwent an urgent triple vessel coronary artery bypass grafting using the left internal mammary artery to the left anterior descending coronary artery, reverse later saphenous vein graft from aorta to the early arising posterior descending coronary artery, a reverse greater saphenous vein graft from the aorta to the intra-myocardial ramus intermedius artery proximally, an aortic valve replacement using a #25 mm pericardial bioprosthesis, magna ease. Endoscopic harvesting of the right greater saphenous vein, intraoperative transesophageal echocardiogram and epi- aortic scanning. Intra-op KAYCEE showed mild MR at the end of the procedure.The patient was subsequently transferred to the cardiovascular intensive care unit where he had an initial stormy recovery, as he was having some bleeding evacuating through his chest tubes. The patient was subsequently taken to the operating room for re-sternotomy and control of bleeding from a right ventricular pacemaker wire site and evacuation of clots. The patient was transferred back to the intensive care unit where he continued to have somewhat of a stormy recovery requiring prolonged mechanical ventilator support. The patient did have a positive sputum culture positive for Eikenella species which was treated accordingly. Patient was subsequently extubated, he progressed to cardiac rehabilitation phase 1 and was subsequently transferred to [address] [place] [address] for further monitoring and rehabilitation. COMPLICATIONS: [the patient's postoperative recovery was complicated by prolonged mechanical ventilator support, positive right lower lobe pneumonia with positive sputum culture of Eikenella species, and postoperative paroxysmal atrial fibrillation which was treated accordingly.] CONSULTATIONS: 1.[Dr. Strong for medical management ] 2.[Dr. HARVINDER Ramirez for cardiology management ] 3.[Dr. Paula for dental clearance ] 4.[Dr. Sales for pulmonary and ventilator management] DISCHARGE INSTRUCTIONS: 1. No driving for 4 weeks, or until physician gives their ok. 2. LifeVest to be applied by the [facility] sales representative meats at [facility] for ischemic cardiomyopathy and ejection fraction of less than 30%. 3. Stairs are not an issue. If the bedroom is upstairs, it is advised that the patient go up at night and down in the morning for the first week. Go slowly, using handrail and take 1 step at a time. 4. KARON hose are to be worn for 30 days or until physician discontinues. 5. Heart hugger is to be worn 100% of the time until physician discontinues.( excepet when showering) 6. No lifting, pushing, or pulling more than 10 pounds for 12 weeks. The physician will advise of any restriction changes. 7. The patient is expected to continue the prescribed walking program. 8. Continue pain control per as needed orders. 9. Continue with incentive spirometry and splinting/heart hugger until otherwise directed by the physician. 10. Must shower daily using liquid antibacterial soap and a separate white washcloth for each individual incision. 11. Please remove Silverlon chest dressing on Friday05/10/2015 with routine sternal incision care thereafter. 12. Physical therapy to evaluate and treat 13. Occupational therapy to evaluate and treat HOME HEALTH SERVICES TO PROVIDE: RN SKILLED HOME CARE SERVICES FOR POST-OP SURGICAL PATIENTS WITH THE FOLLOWING: Coronary Artery Bypass Surgery (CABG), Mitral Valve Replacement/ Repair (MVR), Aortic Valve Replacement/Repair (AVR) RN TO CONTINUE EDUCATION FROM ``ROAD TO A HEALTH HEART PATIENT EDUCATION MANUAL (GIVEN TO PATIENT IN THE HOSPITAL) MEDICATION RECONCILIATION WITH EDUCATION NEEDED ON FIRST HOME VISIT EMPHASIZE IMPORTANCE OF WEARING BREAST SUPPORT/HEART HUGGER ENCOURAGE USE OF INCENTIVE SPIROMETER 10 X EVERY HOUR WHILE AWAKE ENCOURAGE UTILIZATION OF LOWER EXTREMITY COMPRESSION STOCKINGS/KARON HOSE and ELEVATE LEGS ABOVE LEVEL OF HEART WHILE AT REST. ENCOURAGE AMBULATION 3-5x/day INCREASING TOLERATES, WHILE AVOID EXTREMES IN TEMPERATURE FREQUENCY: RN TO OPEN THE PATIENT WITHIN 24 HOURS OF DISCHARGE FROM THE HOSPITAL WITH TELEHEALTH INSTALLED AT [facility], RN TO VISIT 2-3 X A WEEK FOR 4 WEEKS ESTABLISHED BY PATIENT NEEDS. LABORATORY: CBC, CMP, TSH TO BE DRAWN ON THE THIRD DAY HOME, Friday: 05/10/2016 (RAN STAT) FAX RESULTS TO [phone]. HEALTH PARAMETERS: WEIGHT: NOTIFY MD OF WEIGHT GAIN OF 2 LBS IN 24 HOURS OR 5 LBS IN ONE WEEK HR: NOTIFY MD OF HR <55 BPM OR HR>100 BPM BP: NOTIFY MD IF BP <90/55 OR BP>140/100 O2 SAT: NOTIFY MD IF PO2<93% ON ROOM AIR SEND HEALTH REPORTS TO CLAIMS CLERK AND CARDIOVASCULAR SURGEON (Dr. Toledo)THE FIRST WEEK OF CARE AND THEN BI-WEEKLY. PLEASE ADDITIONALLY COMMUNICATE ANY ABNORMALS AND NEW FINDINGS TO THE SURGEONS OFFICE. Patient Condition at Discharge: Serious Plan - Discharge Summary New Discharge Prescriptions: Lisinopril [Zestril] 5 mg PO DAILY #30 tab Metoprolol Tartrate [Lopressor] 75 mg PO BID #30 tab Discharge Medication List Cholecalciferol [Vitamin D3] 1,000 unit PO DAILY 04/13/16 [History] Cyanocobalamin [Vitamin B-12] 2,500 mcg PO DAILY 04/13/16 [History] Finasteride [Proscar] 5 mg PO DAILY 04/13/16 [History] Multivitamin [Men's Multi-Vitamin] 1 tab PO DAILY 04/13/16 [History] [place]-3 Fatty Acids/Fish Oil [Fish Oil 1,000 mg Softgel] 4 cap PO DAILY [History] Acetaminophen Tab [Tylenol] 650 mg PO Q6HR PRN #0 tab 05/07/16 [Rx] Amiodarone [Cordarone] 200 mg PO DAILY #0 tab 05/07/16 [Rx] Aspirin 325 mg PO DAILY #0 chew 05/07/16 [Rx] Atorvastatin [Lipitor] 40 mg PO DAILY tab 05/07/16 [Rx] Bisacodyl [Dulcolax] 10 mg RECTAL DAILY PRN #0 supp 05/07/16 [Rx] Clopidogrel [Plavix] 75 mg PO DAILY #0 tab 05/07/16 [Rx] Docusate Oral Soln [Colace Oral Soln] 100 mg PO DAILY ml 05/07/16 [Rx] Furosemide [Lasix] 40 mg PO DAILY tab 05/07/16 [Rx] Heparin Sodium,Porcine [Heparin Sodium] 5,000 unit SQ Q8HR vial 05/07/16 [Rx] Lisinopril [Zestril] 5 mg PO DAILY #30 tab 05/07/16 [Rx] Metoprolol Tartrate [Lopressor] 75 mg PO BID #30 tab 05/07/16 [Rx] Pantoprazole [Protonix] 40 mg PO AC-[id number] tablet. 05/07/16 [Rx] traMADol HCL [Ultram] 50 mg PO Q6HR PRN #30 05/07/16 [Rx] Follow up Appointment(s)/Referral(s): Radha Ramirez MD [STAFF PHYSICIAN] - 2 Weeks (Per Dr. Florian at Dr. Ramirez's office, the office will call the patient with a follow-up appointment.) James Toledo MD [STAFF PHYSICIAN] - 05/24/16 10:30 am Farshad Odonnell PAC [REFERRING] - 05/21/16 3:00 pm Karsten Sales MD [STAFF PHYSICIAN] - 05/24/16 1:00 pm Ambulatory/Diagnostic Orders: Complete Blood Count w/diff [LAB.AMB] Time Frame: 3 Days, Facility: [facility], Location: Laboratory [facility] Comprehensive Metabolic Panel [LAB.AMB] Time Frame: 3 Days, Facility: [facility], Location: Laboratory [facility] TSH, 3rd Generation [LAB.AMB] Time Frame: 3 Days, Facility: [facility], Location: Laboratory [facility] Activity/Diet/Wound Care/Special Instructions: DISCHARGE INSTRUCTIONS: 1. No driving for 4 weeks, or until physician gives their ok. 2. LifeVest to be applied by the [employer] sales representative meats at [facility] for ischemic cardiomyopathy and ejection fraction of less than 30%. 3. When discharged home, stairs are not an issue. If the bedroom is upstairs, it is advised that the patient go up at night and down in the morning for the first week. Go slowly, using handrail and take 1 step at a time. 4. KARON hose are to be worn for 30 days or until physician discontinues. 5. Heart hugger is to be worn 100% of the time until physician discontinues.( excepet when showering) 6. No lifting, pushing, or pulling more than 10 pounds for 12 weeks. The physician will advise of any restriction changes. 7. The patient is expected to continue the prescribed walking program. 8. Continue pain control per as needed orders. 9. Continue with incentive spirometry and splinting/heart hugger until otherwise directed by the physician. 10. Must shower daily using liquid antibacterial soap and a separate white washcloth for each individual incision. 11. Please remove Silverlon chest dressing on Friday05/10/2015 with routine sternal incision care thereafter. 12. Physical therapy to evaluate and treat 13. Occupational therapy to evaluate and treat HOME HEALTH SERVICES TO PROVIDE: RN SKILLED HOME CARE SERVICES FOR POST-OP SURGICAL PATIENTS WITH THE FOLLOWING: Coronary Artery Bypass Surgery (CABG), Mitral Valve Replacement/ Repair (MVR), Aortic Valve Replacement/Repair (AVR) RN TO CONTINUE EDUCATION FROM ``ROAD TO A HEALTH HEART PATIENT EDUCATION MANUAL (GIVEN TO PATIENT IN THE HOSPITAL) MEDICATION RECONCILIATION WITH EDUCATION NEEDED ON FIRST HOME VISIT EMPHASIZE IMPORTANCE OF WEARING BREAST SUPPORT/HEART HUGGER ENCOURAGE USE OF INCENTIVE SPIROMETER 10 X EVERY HOUR WHILE AWAKE ENCOURAGE UTILIZATION OF LOWER EXTREMITY COMPRESSION STOCKINGS/KARON HOSE and ELEVATE LEGS ABOVE LEVEL OF HEART WHILE AT REST. ENCOURAGE AMBULATION 3-5x/day INCREASING TOLERATES, WHILE AVOID EXTREMES IN TEMPERATURE FREQUENCY: RN TO OPEN THE PATIENT WITHIN 24 HOURS OF DISCHARGE FROM THE HOSPITAL WITH TELEHEALTH INSTALLED AT [facility], RN TO VISIT 2-3 X A WEEK FOR 4 WEEKS ESTABLISHED BY PATIENT NEEDS. LABORATORY: CBC, CMP, TSH TO BE DRAWN ON THE THIRD DAY HOME, Friday: 05/10/2016 (RAN STAT) FAX RESULTS TO [phone]. HEALTH PARAMETERS: WEIGHT: NOTIFY MD OF WEIGHT GAIN OF 2 LBS IN 24 HOURS OR 5 LBS IN ONE WEEK HR: NOTIFY MD OF HR <55 BPM OR HR>100 BPM BP: NOTIFY MD IF BP <90/55 OR BP>140/100 O2 SAT: NOTIFY MD IF PO2<93% ON ROOM AIR SEND HEALTH REPORTS TO CLAIMS CLERK AND CARDIOVASCULAR SURGEON (Dr. Toledo)THE FIRST WEEK OF CARE AND THEN BI-WEEKLY. PLEASE ADDITIONALLY COMMUNICATE ANY ABNORMALS AND NEW FINDINGS TO THE SURGEONS OFFICE. Discharge Disposition: TRANSFER TO SNF/ECF
--- NOTE | 2016-05-08 05:07 | PN ---
The patient is admitted with non-ST elevation myocardial infarction. The patient underwent CABG as well as valvular surgery. The patient is being discharged today, which from medical perspective he is okay for discharge. I did review medication reconciliation with Ronni Santos, nurse practitioner from cardiothoracic surgery. REVIEW OF SYSTEMS: CARDIOVASCULAR: No chest pain, no orthopnea, no PND, no palpitations. PULMONARY: Denied any shortness of breath. No cough or hemoptysis. GASTROINTESTINAL: No diarrhea, nausea or vomiting. No abdominal pain. Normoactive bowel sounds. NEUROLOGIC: No headaches, no weakness, no numbness. Medications reviewed. PHYSICAL EXAMINATION: VITAL SIGNS: Temperature 97.0, pulse of 71, respiratory rate of 16, blood pressure is 127/58, saturating at 97% on 2 L of O2 nasal cannula. PHYSICAL EXAMINATION: GENERAL: Generalized weakness, alert and oriented x3. HEENT: Pupils are round and equally reacting to light. EOMI. No scleral icterus. No conjunctival pallor. Normocephalic, atraumatic. No pharyngeal erythema. No thyromegaly. CARDIOVASCULAR: S1 and S2 present. No murmurs, rubs, or gallops. PULMONARY: Chest is clear to auscultation, no wheezing or crackles. ABDOMEN: Soft, nontender, nondistended, normoactive bowel sounds. No palpable organomegaly. MUSCULOSKELETAL: No joint swelling or deformity. EXTREMITIES: Left arm, the patient does have swelling and thrombophlebitis. The patient does have pedal edema, which is expected to improve. NEUROLOGICAL: Gross neurological examination did not reveal any focal deficits. SKIN: No rashes. Laboratory data was reviewed. No significant abnormality was appreciated. We basically have BMP from today. ASSESSMENT AND PLAN: 1. Status post bypass grafting and aortic valve repair. 2. Ischemic cardiomyopathy, ejection fraction of 20% to 30%. Patient is euvolemic and being discharged on 40 mg of Lasix. Not sure why patient is on antibiotic ( ) Augmentin. I do believe that is necessary and I am recommending tramadol for his thrombophlebitis. 3. Left arm thrombophlebitis. Management as mentioned above. 4. Atrial fibrillation. 5. Chronic obstructive pulmonary disease without any acute exacerbation. 6. Acute renal failure. 7. Morbid obesity. 8. Generalized deconditioning. 9. Acute blood loss anemia from surgery. 10. Benign prostatic hypertrophy. PLAN: Discharge to subacute rehab. The patient is medically stable to be discharged. Did review the medication reconciliation with Ronni Santos nurse practitioner cardiothoracic surgery.
[2016-05-08] MEDS ORDERED: AMIODARONE 200 MG TAB PO SCH (09:00)
--- NOTE | 2016-05-31 17:43 | LTR ---
May 31, 2016 RE: Aditya Mccracken Dear Dr. Ramirez: I had the pleasure of seeing in my office today Mr. Aditya Mccracken for his first postoperative visit. As you may recall he is status post aortic valve replacement with a bioprosthesis 25 mm and triple-vessel coronary artery bypass grafting performed on 04/18/2016. Patient had severe left ventricular dysfunction and was discharged with life vest and had an interim stay at [facility]. Currently he is back home. He is complaining of generalized fatigue. However, he is denying any excessive shortness of breath or chest pain. On exam, his systolic blood pressure is on the low side around 90s and his heart rate is around 60. All his incisions are healing well. His sternum is solid stable. His lungs are clear. He has no peripheral edema and his vein harvest sites are healed. I am certainly very pleased with the clinical progression of Mr. Aditya Mccracken. Certainly he would need re-echo to assess him for ICD need. I went ahead and decreased his beta racheal in view of his blood pressure and his generalized fatigue. I understand that he will be seeing you in about 2 weeks and advised him to monitor his blood pressure, heart rate and weight and to being that log with him. I will see him one more time in about 6 to 8 weeks. Hopefully, by that time he could be weaned off amiodarone if he remains in sinus rhythm. Should you have any questions or concerns, please do not hesitate to call me. It is a pleasure to participate in the care of this nice gentleman. With warmest regards, Sincerely, James Toledo MD
== END 2016-05-07 16:19 | DRG 216 ==
LOC: EC 10:13 → 6SEL 11:52 → 6ICU 04-15 12:28 → 6SEL 05-04 13:48
PROVIDERS: ADMIT Internal Medicine; ATTEND Internal Medicine
PROC: 4A023N7 Measurement of Cardiac Sampling and Pressure, Left Heart, Percutaneous Approach (ICD-10-PCS; 2016-04-15)
PROC: B2111ZZ Fluoroscopy of Multiple Coronary Arteries using Low Osmolar Contrast (ICD-10-PCS; 2016-04-15)
PROC: B246ZZ4 Ultrasonography of Right and Left Heart, Transesophageal (ICD-10-PCS; 2016-04-17)
PROC: 021109W Bypass Coronary Artery, Two Arteries from Aorta with Autologous Venous Tissue, Open Approach (ICD-10-PCS; 2016-04-18)
PROC: 02100Z9 Bypass Coronary Artery, One Artery from Left Internal Mammary, Open Approach (ICD-10-PCS; 2016-04-18)
PROC: B246ZZ4 Ultrasonography of Right and Left Heart, Transesophageal (ICD-10-PCS; 2016-04-18)
PROC: 02PA0MZ Removal of Cardiac Lead from Heart, Open Approach (ICD-10-PCS; 2016-04-18)
PROC: 06BP4ZZ Excision of Right Saphenous Vein, Percutaneous Endoscopic Approach (ICD-10-PCS; 2016-04-18)
PROC: 5A1221Z Performance of Cardiac Output, Continuous (ICD-10-PCS; 2016-04-18)
PROC: 02RF08Z Replacement of Aortic Valve with Zooplastic Tissue, Open Approach (ICD-10-PCS; 2016-04-18)
PROC: 0B968ZX Drainage of Right Lower Lobe Bronchus, Via Natural or Artificial Opening Endoscopic, Diagnostic (ICD-10-PCS; 2016-04-20)
PROC: 0BC68ZZ Extirpation of Matter from Right Lower Lobe Bronchus, Via Natural or Artificial Opening Endoscopic (ICD-10-PCS; 2016-04-20)
PROC: 0B968ZX Drainage of Right Lower Lobe Bronchus, Via Natural or Artificial Opening Endoscopic, Diagnostic (ICD-10-PCS; 2016-04-21)
PROC: 0BC58ZZ Extirpation of Matter from Right Middle Lobe Bronchus, Via Natural or Artificial Opening Endoscopic (ICD-10-PCS; 2016-04-22)
PROC: 0BC48ZZ Extirpation of Matter from Right Upper Lobe Bronchus, Via Natural or Artificial Opening Endoscopic (ICD-10-PCS; 2016-04-22)
PROC: 0BC68ZZ Extirpation of Matter from Right Lower Lobe Bronchus, Via Natural or Artificial Opening Endoscopic (ICD-10-PCS; 2016-04-22)
PROC: 0B948ZX Drainage of Right Upper Lobe Bronchus, Via Natural or Artificial Opening Endoscopic, Diagnostic (ICD-10-PCS; 2016-04-23)
PROC: 0B9B8ZX Drainage of Left Lower Lobe Bronchus, Via Natural or Artificial Opening Endoscopic, Diagnostic (ICD-10-PCS; 2016-04-23)
PROC: 0B968ZX Drainage of Right Lower Lobe Bronchus, Via Natural or Artificial Opening Endoscopic, Diagnostic (ICD-10-PCS; 2016-04-23)
PROC: 0B958ZX Drainage of Right Middle Lobe Bronchus, Via Natural or Artificial Opening Endoscopic, Diagnostic (ICD-10-PCS; 2016-04-23)
PROC: 0B988ZX Drainage of Left Upper Lobe Bronchus, Via Natural or Artificial Opening Endoscopic, Diagnostic (ICD-10-PCS; 2016-04-23)
PROC: 02HV33Z Insertion of Infusion Device into Superior Vena Cava, Percutaneous Approach (ICD-10-PCS; principal; 2016-04-25 11:45)
PROC: B548ZZA Ultrasonography of Superior Vena Cava, Guidance (ICD-10-PCS; principal; 2016-04-25 11:45)
DX: I21.4 Non-ST elevation (NSTEMI) myocardial infarction (principal); I50.23 Acute on chronic systolic (congestive) heart failure; N17.0 Acute kidney failure with tubular necrosis; R57.0 Cardiogenic shock; J95.821 Acute postprocedural respiratory failure; E87.0 Hyperosmolality and hypernatremia; A41.9 Sepsis, unspecified organism; J18.9 Pneumonia, unspecified organism; E87.3 Alkalosis; D68.9 Coagulation defect, unspecified; J44.0 Chronic obstructive pulmonary disease with (acute) lower respiratory infection; D62 Acute posthemorrhagic anemia; I13.0 Hypertensive heart and chronic kidney disease with heart failure and stage 1 through stage 4 chronic kidney disease, or unspecified chronic kidney disease; J93.82 Other air leak; J98.11 Atelectasis; T17.890A Other foreign object in other parts of respiratory tract causing asphyxiation, initial encounter; I97.611 Postprocedural hemorrhage of a circulatory system organ or structure following cardiac bypass; E87.1 Hypo-osmolality and hyponatremia; E86.0 Dehydration; I48.0 Paroxysmal atrial fibrillation; I25.82 Chronic total occlusion of coronary artery; I80.8 Phlebitis and thrombophlebitis of other sites; I08.3 Combined rheumatic disorders of mitral, aortic and tricuspid valves; E78.5 Hyperlipidemia, unspecified; I25.10 Atherosclerotic heart disease of native coronary artery without angina pectoris; I25.5 Ischemic cardiomyopathy; I49.3 Ventricular premature depolarization; M19.90 Unspecified osteoarthritis, unspecified site; M41.9 Scoliosis, unspecified; M81.0 Age-related osteoporosis without current pathological fracture; N18.2 Chronic kidney disease, stage 2 (mild); N40.0 Benign prostatic hyperplasia without lower urinary tract symptoms; R13.10 Dysphagia, unspecified; Z79.82 Long term (current) use of aspirin; Z79.899 Other long term (current) drug therapy; Z87.891 Personal history of nicotine dependence; Z96.653 Presence of artificial knee joint, bilateral
CPT/HCPCS: 31624; 36415; 36430; 36569; 36600; 36620; 70355; 71010; 71020; 71275; 74230; 76937; 80048; 80053; 80061; 80074; 80202; 81003; 82330; 82550; 82553; 82805; 83036; 83735; 83880; 84100; 84132; 84443; 84484; 85025; 85027; 85379; 85384; 85610; 85730; 86850; 86891; 86900; 86901; 86920; 87070; 87075; 87086; 87102; 87116; 87205; 87206; 87252; 87496; 87498; 87502; 87529; 87798; 88108; 88305; 93005; 93306; 93312; 93320; 93325; 93458; 93880; 93923; 93970; 94002; 94003; 94150; 94640; 94760; 96365; 96366; 96375; 96376; 99291

== ENCOUNTER → 2016-05-21 | Outpatient (CLI) | payer MEDICARE ==
--- NOTE | 2016-05-21 13:11 | FL ---
MODIFIED SWALLOW / DEGLUTITION STUDY DATE OF EXAM: 05/21/2016 11:45 AM CLINICAL HISTORY: 76-year-old male Dysphagia. Silent aspiration. Patient on honey thickened liquid co nsistencies. 5 weeks postop CABG. TECHNIQUE: Deglutition study is performed utilizing thin liquid barium, honey and nectar thick liqui d barium, barium thick applesauce, and barium coated cracker. COMPARISON: None. FINDINGS: The oral and pharyngeal phases show satisfactory initiation and propagation with all modalities teste d. Occasional mild delay is seen. Normal mastication is seen with solid modalities tested. There is no evidence of penetration or aspiration with any modality tested. No significant pharyngeal residue was appreciated. IMPRESSION: No penetration or aspiration. Please refer to speech therapist notes for further details if necessary .
== END | disposition home or self-care (01) ==
LOC: RADFLMAIN 11:06
PROVIDERS: ATTEND Internal Medicine
DX: N18.9 Chronic kidney disease, unspecified (principal); I35.2 Nonrheumatic aortic (valve) stenosis with insufficiency; I21.4 Non-ST elevation (NSTEMI) myocardial infarction; E78.5 Hyperlipidemia, unspecified; I10 Essential (primary) hypertension; R26.2 Difficulty in walking, not elsewhere classified; M62.81 Muscle weakness (generalized); J18.8 Other pneumonia, unspecified organism; I48.0 Paroxysmal atrial fibrillation; E66.9 Obesity, unspecified; I25.5 Ischemic cardiomyopathy; I97.190 Other postprocedural cardiac functional disturbances following cardiac surgery
CPT/HCPCS: 74230

== ENCOUNTER → 2016-06-13 | Outpatient (CLI) | payer MEDICARE ==
[2016-06-13 16:48] LABS: CH 30.1; CHCM 32.6; HCT 43.5 % (39.0-53.0); HDW 2.67; MCH 29.9 pg (25.0-35.0); MCHC 32.2 g/dL (31.0-37.0); MCV 92.8 fL (80.0-100.0); Mean Platelet Volume 7.4; RBC 4.68 m/uL (4.30-5.90); RDW 14.2 % (11.5-15.5); WBC 12.2 k/uL (3.8-10.6)
[2016-06-13 17:04] LABS: Potassium 5.2 mmol/L (3.5-5.1)
== END | disposition home or self-care (01) ==
LOC: LABWHC1 16:23
PROVIDERS: ATTEND Internal Medicine Interventional Cardiology
DX: I25.10 Atherosclerotic heart disease of native coronary artery without angina pectoris (principal); I50.9 Heart failure, unspecified
CPT/HCPCS: 36415; 80048; 84439; 84443; 85027

== ENCOUNTER → 2019-03-02 | Outpatient (CLI) | payer OTHER ==
--- NOTE | 2019-03-02 11:02 | XR ---
EXAMINATION TYPE: XR Hip LT and AP Pelvis DATE OF EXAM: 03/02/2019 COMPARISON: NONE HISTORY: Chronic pelvic and left hip pain TECHNIQUE: A single AP view of the pelvis is obtained. Two views of the left hip are obtained. FINDINGS: There is no acute fracture/dislocation evident in the pelvis. There is asymmetric arthropa thy of the hips, left much greater than right. Pelvic radiograph demonstrates severe joint space narr owing of the left femoral acetabular joint and only minimal joint space narrowing on the right with m ild acetabular roof sclerosis. Degenerative disc disease of the lumbosacral junction is also visualiz ed appearing at least moderate. The overlying soft tissue appears unremarkable. Two views of left hip show no acute fracture or dislocation. No focal lytic or sclerotic lesion seen in the proximal left femur. As discussed above there is severe joint space narrowing and acetabular roof sclerosis with [id number] articulation of the left femoral acetabular joint. Protuberant maryuri nal osteophytes are also seen. Subchondral cyst formation is present. The left femoral head appears s lightly irregular in contour and subcortical femoral collapse is possible or avascular necrosis.. IMPRESSION: 1. No acute fracture or dislocation in the pelvis or left hip. 2. Asymmetric arthropathy of the hips, severe on the left and mild on the right. There is bone-on-bon e articulation of the left femoral acetabular joint. Some irregularity of the left femoral head could relate to subchondral femoral collapse or avascular necrosis. MRI could further evaluate this findin g.
== END | disposition home or self-care (01) ==
LOC: RADXRMAIN 10:20
PROVIDERS: ATTEND Orthopaedic Surgery
DX: M16.0 Bilateral primary osteoarthritis of hip (principal); M25.852 Other specified joint disorders, left hip
CPT/HCPCS: 73502

== ENCOUNTER → 2019-12-02 | Outpatient (CLI) | payer OTHER ==
--- NOTE | 2019-12-02 11:10 | US ---
EXAMINATION TYPE: US kidneys/renal and bladder DATE OF EXAM: 12/02/2019 COMPARISON: NONE CLINICAL HISTORY: N18 Chronic kidney disease. no symptoms, CKD abnormal lab values. EXAM MEASUREMENTS: Right Kidney: 10.5 x 5.0 x 5.5 cm Left Kidney: 10.9 x 4.9 x 5.9 cm Right Kidney: No hydronephrosis or masses seen Left Kidney: difficult to image, cortical thinning Bladder: not fully distended, wnl There is no evidence for hydronephrosis at this point in time. No nephrolithiasis is seen. No lisa s are identified. Cortical thinning and increased cortical echogenicity left kidney and to lesser deg ree right kidney. The urinary bladder is not greatly distended. Bilateral ureteral jets are not seen . IMPRESSION: No hydronephrosis noted bilaterally.
== END | disposition home or self-care (01) ==
LOC: RADUSWWP 10:27
PROVIDERS: ATTEND Physician Assistant
DX: N18.9 Chronic kidney disease, unspecified (principal)
CPT/HCPCS: 76770

== ENCOUNTER → 2020-02-24 | Outpatient (CLI) | payer MEDICARE ==
[2020-02-24 15:54] LABS: Basophils # (A) 0.1 k/uL (0-0.2); Basophils % (A) 1 %; Eosinophils # (A) 0.3 k/uL (0-0.7); Eosinophils % (A) 3 %; HCT 43.7 % (39.0-53.0); HGB 14.3 gm/dL (13.0-17.5); Lymphocytes % (A) 30 %; MCH 29.6 pg (25.0-35.0); MCHC 32.7 g/dL (31.0-37.0); MCV 90.5 fL (80.0-100.0); Mean Platelet Volume 6.8; Monocytes # (A) 0.5 k/uL (0-1.0); Monocytes % (A) 5 %; Neutrophils % (A) 60 %; Platelet Count 194 k/uL (150-450); RBC 4.82 m/uL (4.30-5.90); RDW 13.6 % (11.5-15.5); WBC 9.9 k/uL (3.8-10.6)
[2020-02-24 16:05] LABS: Potassium 4.8 mmol/L (3.5-5.1)
== END | disposition home or self-care (01) ==
LOC: LABPAT 14:34
PROVIDERS: ATTEND Orthopaedic Surgery
DX: M16.12 Unilateral primary osteoarthritis, left hip (principal)
CPT/HCPCS: 80051; 85025; 85610

== ENCOUNTER 2020-02-28 06:20 | Day surgery (SDC) | payer MEDICARE, OTHER ==
[2020-02-24 12:59] VITALS: BMI 33.0
--- NOTE | 2020-02-27 10:43 | HP ---
HISTORY AND PHYSICAL REASON FOR ADMISSION: Surgery is scheduled for 02/28/2020 HISTORY OF PRESENT ILLNESS: Aditya Mccracken is an 79-year-old patient seen with symptomatic left hip osteoarthritis. We discussed options for treatment. He elected to proceed with left total hip arthroplasty. Consent was obtained. Medical clearance was provided by the [facility]. Cardiac clearance was provided by Dr. Ramirez. PAST MEDICAL HISTORY: Hypertension, hyperlipidemia, cardiovascular disease. PAST SURGICAL HISTORY: Bilateral total knee arthroplasty. DAILY MEDICATIONS: Aspirin, atorvastatin, Furosemide, losartan, metoprolol, tramadol. ALLERGIES: MORPHINE. SOCIAL HISTORY: He denies current tobacco use. PHYSICAL EXAMINATION: Evaluation of the left hip: He has diffuse tenderness about the hip girdle. Limited range of motion. Severe pain. Positive impingement sign. Straight leg raise is negative. Distal neurovascular exam is intact. RADIOGRAPHS: Radiographs of the left hip reveal severe osteoarthritic changes. IMPRESSION: 1. Left hip osteoarthritis. 2. Hypertension. 3. Hyperlipidemia. 4. Cardiovascular disease. PLAN: Direct anterior left total hip arthroplasty. Surgery scheduled 02/28/2020. MMODL / IJN: [id number] /
[~2020-02-28 06:20] MED LIST: ACETAMINOPHEN TAB 500 MG TAB PO ONE; LIDOCAINE 1% (10MG/ML) FOR IV START INTRADERMA PRN; MELOXICAM 7.5 MG TAB PO ONE; ONDANSETRON 4 MG/2 ML VIAL IVP ONE; TRANEXAMIC ACID 1,000 MG in SODIUM CHLORIDE 0.9% 100 ML IVPB ONE
[2020-02-28] MEDS: LACTATED RINGERS 1,000 ML IV SCH (07:08)
[2020-02-28] MEDS ORDERED: SUCCINYLCHOLINE CHLORIDE VIAL 200 MG/10 ML VIAL IV ONE (07:28)
[2020-02-28] MEDS ORDERED: MIDAZOLAM 2 MG/2 ML VIAL ONE (07:28)
[2020-02-28] MEDS ORDERED: LIDOCAINE 1% INJ 10MG/ML (20 ML MDV) ONE (07:28)
[2020-02-28] MEDS ORDERED: GLYCOPYRROLATE 0.2 MG/ML 2 ML VIAL ONE (07:28)
[2020-02-28] MEDS ORDERED: TRANEXAMIC ACID 1,000 MG/10 ML VIAL ONE (07:28)
[2020-02-28] MEDS ORDERED: PHENYLEPHRINE-0.9% NACL SYG 1 MG/10 ML SYRINGE ONE (07:28)
[2020-02-28] MEDS ORDERED: PROPOFOL 10 MG/ML 20 ML VIAL IV ONE (07:28)
[2020-02-28] MEDS ORDERED: SODIUM CHLORIDE 0.9% 100 ML BAG ONE (07:28)
[2020-02-28] MEDS ORDERED: NEOSTIGMINE 1 MG/ML 10 ML VIAL ONE (07:28)
[2020-02-28] MEDS ORDERED: fentaNYL (PF) 50 MCG/ML 2 ML AMP ONE (07:28)
[2020-02-28] MEDS ORDERED: ceFAZolin 1,000 MG in SODIUM CHLORIDE 0.9% 1,000 ML IRRIGATION ONE (07:58)
[2020-02-28] MEDS: ROPIVACAINE 246.25 MG, EPINEPHrine 0.5 MG, KETOROLAC 30 MG, cloNIDine HCL/PF 80 MCG, WA... MISCELLANE ONE ×10 (08:15→09:05)
[2020-02-28] MEDS ORDERED: HYDROcodone/APAP 5-325MG 1 EACH TAB PO PRN ×2 (09:32)
[2020-02-28] MEDS ORDERED: NALOXONE 0.4 MG/ML 1 ML VIAL IV PRN (09:32)
[2020-02-28] MEDS ORDERED: ONDANSETRON 4 MG/2 ML VIAL IVP PRN (09:32)
[2020-02-28] MEDS ORDERED: HYDROmorphone 0.5 MG/0.5 ML SYRINGE IVP PRN ×3 (09:32)
--- NOTE | 2020-02-28 09:32 | P.OP ---
Date of Procedure: 02/28/20 Preoperative Diagnosis: Left hip osteoarthritis Postoperative Diagnosis: Left hip osteoarthritis Procedure(s) Performed: Direct anterior left total hip arthroplasty Implants: 1. Depuy Corail KLA size 12 high offset collared press-fit femoral stem 2. Depuy pinnacle 54 mm multi hole press-fit acetabular shell 3. Depuy pinnacle +4 neutral polyethylene acetabular liner 36 mm ID 54 mm OD 4. Biolox delta ceramic femoral head +1.5 36 mm Anesthesia: GETA, local Surgeon: Cecilio Mccord Facility Attendant #1: Rodo Barnes Estimated Blood Loss (ml): 225 Pathology: other (Femoral head) Condition: stable Disposition: PACU Indications for Procedure: 79-year-old patient seen with symptomatic left hip osteoarthritis. After treatment options were discussed, he elected to proceed with total hip arthroplasty. Operative Findings: See description of procedure Description of Procedure: The patient was taken to the operative suite. Patient underwent a general anesthetic by the department of anesthesia. Patient was then transferred to the [place] table. Patient was given preoperative IV antibiotics and TXA. Both lower extremities were placed in standard leg spars. The hip was then prepped and draped in the normal sterile orthopedic fashion. A standard anterior incision was made beginning 3 cm lateral and 1 cm distal to the ASIS extending 10 cm. Dissection was then carried down through the subcutaneous soft tissues down to the fascia overlying the tensor fascia rupa. An incision was now made through the fascia. Careful dissection was taken down exposing the tensor fascia rupa muscle. A Cobra retractor was now placed along the medial femoral neck and a second one along the lateral femoral neck. The venous circumflex vessels were now identified, cauterized and clipped. We identified the anterior hip capsule. An incision was made through the hip capsule along the lateral border. I performed a partial anterior capsulectomy. Retractors were now placed around the femoral neck itself. A femoral neck cut was now made with a sagittal saw. It was completed with an osteotome at the lateral neck area. The femoral head was now removed without difficulty. The extremity was now rotated to 45 of external rotation. It was locked in position. Residual labrum was now debrided out. Serial reaming was performed of the acetabulum while Ricardo SALOMON assisted holding an anterior retractor for exposure. Once we reached the appropriate size and a trial was position and fit nicely. The appropriate size was now chosen opened and made available. It was introduced into the acetabulum without difficulty. The C-arm/fluoroscopy was now brought into the operative field. We made sure we had a true AP pelvic view. We now under direct C- arm/fluoroscopy introduced into the acetabular component with appropriate version and inclination. I held the cup in appropriate position well Ricardo SALOMON used a mallet to seat the acetabular component. I noted the component now to be well seated and stable. Acetabular cup introduce her was removed. The C-arm was pulled back. An appropriate liner was introduced and clicked into position. It was felt to be stable. At this point retractors were removed. The extremity was now placed into 120 external rotation with no traction. The leg was now dropped to the ground and adducted. Appropriate retractors were now positioned along the proximal femur. We also placed our femoral look into position. Additional capsular releasing was performed to gain access to the proximal femur. We now used a box osteotome. A canal finder was now utilized. Serial broaching was now performed with the assistance of Ricardo SALOMON tapping the broaches down with a mallet while held the broach in appropriate rotation and position. This was done until we reached the appropriate size with good overall rotational stability. Appropriate calcar planing was performed. A trial head/neck was placed into position. The hip was now reduced. The C- arm/fluoroscopy was brought back into the operative field. I obtained an AP pelvis to ascertain leg lengths which seemed reasonably aligned. The trial component seemed well positioned. The C-arm/fluoroscopy was pulled back. Retractors were repositioned and the hip was dislocated. The leg was again taken down to the ground and adducted. Appropriate retractors were repositioned as well as the femoral hook. All trial components were removed. The femoral implant was opened along with the femoral head. The femoral implant was introduced on the appropriate handle into our pre-broached area. I held the component position well Ricardo SALOMON used a mallet to seat the femoral component. The femoral component was now noted to be well seated and stable.. The femoral head was introduced with good positioning and fixation noted. Retractors were now removed. The hip was now reduced. There appeared be good positioning of the hip confirmed on intraoperative fluoroscopy. Spot films were obtained to document this. A second gram of TXA was given. The deep and superficial soft tissues were infiltrated with local analgesic. Bipolar cautery had been utilized intermittently through the procedure for hemostasis. The wound was irrigated copiously with pulse lavage mechanical irrigation. The fascia was repaired with Vicryl suture. The subcutaneous soft tissues were repaired in layers with Vicryl suture. The skin was approximated with pernio/Dermabond. Sterile dressings were applied. Patient was then awakened, transferred to a bed and taken to recovery in stable condition. Ricardo SALOMON assisted with the complex procedure.
--- NOTE | 2020-02-28 09:50 | FL ---
EXAMINATION TYPE: FL guidance operating room DATE OF EXAM: 02/28/2020 CLINICAL HISTORY: Left hip pain and osteoarthritis. TECHNIQUE: Fluoroscopy. COMPARISON: Outside left hip x-ray January 04, 2020. FINDINGS: Fluoroscopic guidance was provided during left hip replacement procedure performed by Dr. Mccodr. A total of 15 seconds of fluoroscopic time was utilized during the procedure and 2 spot i ntraoperative images are acquired. Intraoperative images obtained show metallic hardware from total left hip arthroplasty satisfactory i n position on frontal projection. IMPRESSION: As Above.
[2020-02-28] MEDS: HYDROmorphone 0.5 MG/0.5 ML SYRINGE IVP PRN ×2 (10:02→10:30)
[2020-02-28] MEDS ORDERED: LACTATED RINGERS 1,000 ML IV ONE ×2 (10:35)
--- NOTE | 2020-02-28 11:33 | XR ---
EXAMINATION TYPE: XR Hip Limited LT DATE OF EXAM: 02/28/2020 CLINICAL HISTORY: Left hip pain and osteoarthritis. TECHNIQUE: Single AP portable view of left hip is obtained immediately postoperatively. COMPARISON: Pelvic and left hip x-ray March 02, 2019. FINDINGS: Metallic hardware from left hip arthroplasty is seen and appears satisfactory in alignment and position. There is evidence of recent surgery with subcutaneous gas noted extending laterally. IMPRESSION: Metallic hardware from left hip arthroplasty is satisfactory in position.
[2020-02-28] MEDS: SODIUM CHLORIDE 0.9% 1,000 ML IV SCH (15:51)
[2020-02-28] MEDS ORDERED: SENNOSIDES-DOCUSATE SODIUM 1 EACH TAB PO SCH (21:00)
[2020-02-28] MEDS ORDERED: METOPROLOL SUCCINATE (ER) 25 MG TAB.ER.24H PO SCH (22:00)
[2020-02-28] MEDS ORDERED: NON FORMULARY DRUG (Magnesium [Magnesium] 250 MG Tablet) PO SCH (22:00)
[2020-02-28] MEDS ORDERED: ATORVASTATIN 40 MG TAB PO SCH (22:00)
[2020-02-28] MEDS ORDERED: DOXAZOSIN 4 MG TAB PO SCH (22:00)
[2020-02-29 06:49] LABS: Basophils % (A) 0 %; Eosinophils # (A) 0.1 k/uL (0-0.7); Eosinophils % (A) 1 %; HCT 34.6 % (39.0-53.0); HGB 11.5 gm/dL (13.0-17.5); Lymphocytes % (A) 22 %; MCH 30.6 pg (25.0-35.0); MCHC 33.3 g/dL (31.0-37.0); MCV 91.8 fL (80.0-100.0); Mean Platelet Volume 7.1; Monocytes # (A) 0.6 k/uL (0-1.0); Monocytes % (A) 7 %; Neutrophils # (A) 6.1 k/uL (1.3-7.7); Neutrophils % (A) 68 %; Platelet Count 145 k/uL (150-450); RBC 3.77 m/uL (4.30-5.90); RDW 13.4 % (11.5-15.5); WBC 8.9 k/uL (3.8-10.6)
[2020-02-29] MEDS: LACTATED RINGERS 1,000 ML IV SCH (06:51)
[2020-02-29] MEDS: SODIUM CHLORIDE 0.9% 1,000 ML IV SCH (08:06)
[2020-02-29] MEDS ORDERED: CALCIUM CARBONATE 500 MG CHEWABLE PO PRN (08:17)
[2020-02-29] MEDS ORDERED: ENOXAPARIN 40 MG/0.4 ML SYRINGE SQ SCH (09:00)
[2020-02-29] MEDS ORDERED: NON FORMULARY DRUG (Ubidecarenone [Co Q-10] 300 MG Capsule) PO SCH (09:00)
[2020-02-29] MEDS ORDERED: ASPIRIN 81 MG PO SCH (09:00)
[2020-02-29] MEDS ORDERED: MULTIVITAMINS, THERA 1 EACH TAB PO SCH (09:00)
[2020-02-29] MEDS ORDERED: OXYBUTYNIN CHLORIDE 5 MG TAB PO SCH (09:00)
[2020-02-29] MEDS ORDERED: FINASTERIDE 5 MG TAB PO SCH (09:00)
--- NOTE | 2020-02-29 13:07 | P.PN ---
Subjective Progress Note Date: 02/29/20 Principal diagnosis: Status post direct anterior left total hip arthroplasty Patient was examined today at bedside, is resting comfortably. He did very well with physical therapy. His pain is well-controlled. He denies any headaches, lightheadedness, chest pain, shortness of breath, nausea, vomiting or diarrhea Objective - Vital Signs Vital signs: Vital Signs Temp 97.3 F L 02/29/20 08:01 Pulse 75 02/29/20 08:01 Resp 16 02/29/20 08:01 BP 117/72 02/29/20 08:01 Pulse Ox 95 02/29/20 08:01 Intake & Output 02/28/20 02/29/20 02/29/20 18:59 06:59 18:59 Intake Total 1551 500 200 Output Total 225 375 Balance 1326 125 200 Weight 106.8 kg Intake: IV 1351 Oral 200 500 200 Output: Urine 375 Estimated Blood Loss 225 Other: Voiding Method Urinal - Exam Left lower extremity: Incision is clean, dry, and intact. The foam dressing is in good condition. There is minimal soft tissue swelling and ecchymosis surrounding the medial and lateral aspects of the incision. Calf is soft, no tenderness with palpation. Plantar flexion, dorsiflexion, EHL, FHL are intact. Sensory exam to light touch throughout the extremity is intact, dorsal pedis pulses 2+. - Labs CBC & Chem 7: 02/29/20 06:27 Labs: Abnormal Lab Results - Last 24 Hours (Table) 02/29/20 Range/Units 06:27 RBC 3.77 L (4.30-5.90) m/uL Hgb 11.5 L (13.0-17.5) gm/dL Hct 34.6 L (39.0-53.0) % Plt Count 145 L (150-450) k/uL Assessment and Plan Assessment: Postop day #1 status post direct anterior left total hip arthroplasty Plan: Pain control, plan for discharge home on oral medication DVT prophylaxis, we will increase aspirin 81 mg twice a day Wound care instructions were discussed Home physical therapy and nursing after discharge Medical recommendations Plan for discharge home today Time with Patient: Less than 30
[2020-02-29 15:55] VITALS: BP 109/64; PULSE 65; RESP 20; TEMP 98.1
== END 2020-02-29 16:25 | disposition home health service (06) ==
LOC: OR 06:20 → 4SSUR 09:28 → OR 02-29 16:25
PROVIDERS: ATTEND Orthopaedic Surgery
DX: M16.12 Unilateral primary osteoarthritis, left hip (principal); I10 Essential (primary) hypertension; E78.5 Hyperlipidemia, unspecified; I25.10 Atherosclerotic heart disease of native coronary artery without angina pectoris; N40.0 Benign prostatic hyperplasia without lower urinary tract symptoms; M41.9 Scoliosis, unspecified; E66.3 Overweight; E78.00 Pure hypercholesterolemia, unspecified; Z96.653 Presence of artificial knee joint, bilateral; Z88.5 Allergy status to narcotic agent; Z79.82 Long term (current) use of aspirin; Z79.1 Long term (current) use of non-steroidal anti-inflammatories (NSAID); Z79.899 Other long term (current) drug therapy; Z95.1 Presence of aortocoronary bypass graft; Z68.34 Body mass index [BMI] 34.0-34.9, adult; Z82.49 Family history of ischemic heart disease and other diseases of the circulatory system; Z95.3 Presence of xenogenic heart valve
CPT/HCPCS: 97116; 97110; 97161; 86900; 86901; 85025; 86850; 86870; 86880; 88300; 87070; 73501; 36415; 27130; C1776; S0138; J2250; J0171; J0330; J2710; J0690 ×2; J2405; J2001; J1650; J3010; J1885; J2795; J2370; J2704; J0735; J1170

== ENCOUNTER 2021-03-21 14:43 | Emergency (ER) | payer MEDICARE ==
[2021-03-21 14:58] VITALS: TEMP 98.9
[2021-03-21 15:11] VITALS: RESP 18
[2021-03-21] MEDS ORDERED: AZITHROMYCIN 500 MG TAB PO STA ×2 (17:40→18:13)
--- NOTE | 2021-03-21 17:43 | ED ---
Headache HPI - General Chief Complaint: Headache Stated Complaint: General Weakness Time Seen by Provider: 03/21/21 15:11 Source: RN notes reviewed Mode of arrival: EMS - History of Present Illness Initial Comments: This is a 80-year-old male who presents with family because of a mild headache he came in at the behest of his family he has had family members exposed to COVID-19 he denies any fevers chills nausea vomiting sweats he has had slight cough some sore throat no other complaints or modifying factors at this time. He has been taking vitamin C vitamin D3 as well as joselin LONG Complaint: headache, other - Related Data Home Medications Medication Instructions Recorded Confirmed Finasteride [Proscar] 5 mg PO DAILY 04/13/16 03/21/21 Multivitamin [Men's Multi-Vitamin] 1 tab PO DAILY 04/13/16 03/21/21 [place]-3 Fatty Acids/Fish Oil [Fish 1 cap PO BID 04/13/16 03/21/21 Oil 1,000 mg Softgel] Doxazosin [Cardura] 4 mg PO HS 02/24/20 03/21/21 Oxybutynin Chloride [Ditropan] 5 mg PO BID 02/24/20 03/21/21 Ubidecarenone [Co Q-10] 300 mg PO DAILY 02/24/20 03/21/21 traMADol HCL [Ultram] 100 mg PO DAILY 02/24/20 03/21/21 Aspirin [Adult Low Dose Aspirin EC] 81 mg PO HS 03/21/21 03/21/21 Atorvastatin [Lipitor] 40 mg PO HS 03/21/21 03/21/21 Glucosamine/Chondr Garcia A Sod [Osteo 1 tab PO HS 03/21/21 03/21/21 Bi-Flex Caplet] Magnesium Oxide [Gerardo] 500 mg PO BID 03/21/21 03/21/21 Metoprolol Succinate (ER) [Toprol 25 mg PO DAILY 03/21/21 03/21/21 Xl] Saw [place] 450mg 450 mg PO HS 03/21/21 03/21/21 traMADol HCL 50 mg PO HS 03/21/21 03/21/21 Previous Rx's Medication Instructions Recorded Furosemide [Lasix] 40 mg PO DAILY tab 05/07/16 Azithromycin [Zithromax Z-pack (6 250 mg PO DIRECTED 5 Days #6 tab 03/21/21 tabs)] Allergies Allergy/AdvReac Type Severity Reaction Status Date / Time morphine Allergy Unknown Itching Verified 03/21/21 15:53 Review of Systems ROS Statement: Those systems with pertinent positive or pertinent negative responses have been documented in the HPI. ROS Other: All systems not noted in ROS Statement are negative. Past Medical History Past Medical History: Coronary Artery Disease (CAD), Hyperlipidemia, Hypertension, Osteoarthritis (OA), Prostate Disorder Additional Past Medical History / Comment(s): Obesity, scoliosis of the spine, BPH, chronic back pain, osteoarthritis, uses walker and scooter. History of Any Multi-Drug Resistant Organisms: None Reported Past Surgical History: Coronary Bypass/CABG, Heart Catheterization, Joint Replacement Additional Past Surgical History / Comment(s): bilateral knee replacement, cataract removal, CABG and aortic valve (04/26/2016) Past Anesthesia/Blood Transfusion Reactions: No Reported Reaction Past Psychological History: No Psychological Hx Reported Smoking Status: Former smoker Past Alcohol Use History: None Reported Past Drug Use History: None Reported - Past Family History Father Family Medical History: Cancer Additional Family Medical History / Comment(s): colon cancer General Exam - General Exam Comments Initial Comments: This is a well-developed well-nourished awake alert oriented times 3 male he does demonstrate stable vitals with a pulse ox of 96% room air General appearance: alert, in no apparent distress Head exam: Present: atraumatic, normocephalic, normal inspection Eye exam: Present: normal appearance, PERRL, EOMI. Absent: scleral icterus, conjunctival injection, periorbital swelling ENT exam: Present: mucous membranes dry Neck exam: Present: normal inspection. Absent: tenderness, meningismus, lymphadenopathy Respiratory exam: Present: normal lung sounds bilaterally. Absent: respiratory distress, wheezes, rales, rhonchi, stridor Cardiovascular Exam: Present: regular rate, normal rhythm, normal heart sounds. Absent: systolic murmur, diastolic murmur, rubs, gallop, clicks GI/Abdominal exam: Present: soft, normal bowel sounds. Absent: distended, tenderness, guarding, rebound, rigid Extremities exam: Present: normal inspection, full ROM, normal capillary refill. Absent: tenderness, pedal edema, joint swelling, calf tenderness Back exam: Present: normal inspection Neurological exam: Present: alert, oriented X3, CN II-XII intact Psychiatric exam: Present: normal affect, normal mood Skin exam: Present: warm, dry, intact, normal color. Absent: rash Course Vital Signs 03/21/21 03/21/21 14:47 15:06 Temperature 98.9 F Pulse Rate 83 Respiratory 16 18 Rate Blood Pressure 127/83 O2 Sat by Pulse 93 L Oximetry Medical Decision Making - Medical Decision Making I did a long discussion with the patient is daughter was present he was offered COVID-19 testing as well as x-rays and lab work he does not want that he would like something for what he believes is a sinus infection. He is in agreement with taking the azithromycin. Disposition Clinical Impression: Sinusitis, Cephalgia Disposition: HOME SELF-CARE Condition: Good Instructions (If sedation given, give patient instructions): Sinusitis (ED), Acute Headache (ED) Prescriptions: Azithromycin [Zithromax Z-pack (6 tabs)] 250 mg PO DIRECTED 5 Days #6 tab Is patient prescribed a controlled substance at d/c from ED?: No Referrals: [facility],Clinic [Primary Care Provider] - 1-2 days
[2021-03-21 18:20] VITALS: BP 128/69; PULSE 79
== END 2021-03-21 18:20 | disposition home or self-care (01) ==
LOC: EC 14:43
DX: J32.9 Chronic sinusitis, unspecified (principal); I25.10 Atherosclerotic heart disease of native coronary artery without angina pectoris; E78.5 Hyperlipidemia, unspecified; I10 Essential (primary) hypertension; M19.90 Unspecified osteoarthritis, unspecified site; Z87.891 Personal history of nicotine dependence; Z79.82 Long term (current) use of aspirin; Z79.899 Other long term (current) drug therapy
CPT/HCPCS: 99284

== ENCOUNTER 2021-03-22 15:13 | Emergency (ER) | payer MEDICARE ==
--- NOTE | 2021-03-22 16:04 | ED ---
URI HPI - General Chief Complaint: Upper Respiratory Infection Stated Complaint: covid exposure Time Seen by Provider: 03/22/21 15:51 Source: patient, EMS, RN notes reviewed Mode of arrival: EMS Limitations: no limitations - History of Present Illness Initial Comments: This an 80-year-old male presents emergency Department with chief complaint of COVID-19 exposure. Patient states that he's been congested last 4-5 days states she's been tired no shortness breath no chest pain. Patient states that everyone in his family at home has had COVID-19. Patient was sent in for testing, further evaluation denies any nausea vomiting diarrhea constipation. No inability to ambulate. Patient states that he just feels tired, fatigued. - Related Data Home Medications Medication Instructions Recorded Confirmed Finasteride [Proscar] 5 mg PO DAILY 04/13/16 03/21/21 Multivitamin [Men's Multi-Vitamin] 1 tab PO DAILY 04/13/16 03/21/21 [place]-3 Fatty Acids/Fish Oil [Fish 1 cap PO BID 04/13/16 03/21/21 Oil 1,000 mg Softgel] Doxazosin [Cardura] 4 mg PO HS 02/24/20 03/21/21 Oxybutynin Chloride [Ditropan] 5 mg PO BID 02/24/20 03/21/21 Ubidecarenone [Co Q-10] 300 mg PO DAILY 02/24/20 03/21/21 traMADol HCL [Ultram] 100 mg PO DAILY 02/24/20 03/21/21 Aspirin [Adult Low Dose Aspirin EC] 81 mg PO HS 03/21/21 03/21/21 Atorvastatin [Lipitor] 40 mg PO HS 03/21/21 03/21/21 Glucosamine/Chondr Garcia A Sod [Osteo 1 tab PO HS 03/21/21 03/21/21 Bi-Flex Caplet] Magnesium Oxide [Gerardo] 500 mg PO BID 03/21/21 03/21/21 Metoprolol Succinate (ER) [Toprol 25 mg PO DAILY 03/21/21 03/21/21 Xl] Saw [place] 450mg 450 mg PO HS 03/21/21 03/21/21 traMADol HCL 50 mg PO HS 03/21/21 03/21/21 Previous Rx's Medication Instructions Recorded Furosemide [Lasix] 40 mg PO DAILY tab 05/07/16 Azithromycin [Zithromax Z-pack (6 250 mg PO DIRECTED 5 Days #6 tab 03/21/21 tabs)] Allergies Allergy/AdvReac Type Severity Reaction Status Date / Time morphine Allergy Unknown Itching Verified 03/22/21 15:35 Review of Systems ROS Statement: Those systems with pertinent positive or pertinent negative responses have been documented in the HPI. ROS Other: All systems not noted in ROS Statement are negative. Past Medical History Past Medical History: Coronary Artery Disease (CAD), Hyperlipidemia, Hypertension, Osteoarthritis (OA), Prostate Disorder Additional Past Medical History / Comment(s): Obesity, scoliosis of the spine, BPH, chronic back pain, osteoarthritis, uses walker and scooter. History of Any Multi-Drug Resistant Organisms: None Reported Past Surgical History: Coronary Bypass/CABG, Heart Catheterization, Joint Replacement Additional Past Surgical History / Comment(s): bilateral knee replacement, cataract removal, CABG and aortic valve (04/26/2016) Past Anesthesia/Blood Transfusion Reactions: No Reported Reaction Past Psychological History: No Psychological Hx Reported Smoking Status: Former smoker Past Alcohol Use History: None Reported Past Drug Use History: None Reported - Past Family History Father Family Medical History: Cancer Additional Family Medical History / Comment(s): colon cancer General Exam Limitations: no limitations General appearance: alert, in no apparent distress Head exam: Present: atraumatic, normocephalic, normal inspection Eye exam: Present: normal appearance, PERRL, EOMI. Absent: scleral icterus, conjunctival injection, periorbital swelling ENT exam: Present: normal exam, normal oropharynx, mucous membranes moist Neck exam: Present: normal inspection, full ROM. Absent: tenderness, meningismus, lymphadenopathy Respiratory exam: Present: normal lung sounds bilaterally. Absent: respiratory distress, wheezes, rales, rhonchi, stridor Cardiovascular Exam: Present: regular rate, normal rhythm, normal heart sounds. Absent: systolic murmur, diastolic murmur, rubs, gallop, clicks GI/Abdominal exam: Present: soft, normal bowel sounds. Absent: distended, tenderness, guarding, rebound, rigid Course Vital Signs 03/22/21 15:33 Temperature 99.3 F Pulse Rate 69 Respiratory 20 Rate Blood Pressure 105/59 O2 Sat by Pulse 94 L Oximetry Medical Decision Making - Medical Decision Making Patient is positive for COVID-19. Patient is and in no signs of distress. Patient will receiving monoclonal antibodies, return parameters were discussed, patient will be discharged stable condition. - Lab Data Lab Results 03/22/21 Range/Units 15:35 Coronavirus (PCR) Detected A (Not Detectd) Disposition Clinical Impression: COVID-19 Disposition: HOME SELF-CARE Condition: Stable Instructions (If sedation given, give patient instructions): Coronavirus Disease 2019 (COVID-19) Additional Instructions: Please return to the Emergency Department if symptoms worsen or any other concerns. Is patient prescribed a controlled substance at d/c from ED?: No Referrals: [facility],Clinic [Primary Care Provider] - 1-2 days Time of Disposition: 16:33
--- NOTE | 2021-03-22 16:31 | XR ---
EXAMINATION TYPE: XR chest 2V DATE OF EXAM: 03/22/2021 COMPARISON: Chest x-ray May 07, 2016 HISTORY: Cough and fatigue for 5 days. TECHNIQUE: Frontal and lateral views of the chest are obtained. FINDINGS: Elevated and eventrated left hemidiaphragm. Mild cardiomegaly with atherosclerotic thoraci c aorta. Metallic aortic valve. Persistent small to tiny left pleural effusion. No new focal airspa ce opacity or pneumothorax seen bilaterally. The osseous structures are intact. IMPRESSION: Chronic changes with small to tiny left pleural effusion. No new focal infiltrate.
[2021-03-22] MEDS ORDERED: CASIRIVIMAB (REGN10933) (EUA) 600 MG, IMDEVIMAB (REGN10987) (EUA) 600 MG in SODIUM CHLO... IVPB ONE (17:00)
[2021-03-22] MEDS ORDERED: SODIUM CHLORIDE 0.9% 50 ML IVPB ONE (17:00)
[2021-03-22] MEDS ORDERED: BENZOCAINE/MENTHOL LOZENG 1 EACH LOZENGE MUCOUS MEM STA (17:23)
[2021-03-22 19:18] VITALS: BP 157/78; PULSE 78; RESP 16; TEMP 98.5
== END 2021-03-22 19:17 | disposition home or self-care (01) ==
LOC: EC 15:13
DX: U07.1 COVID-19 (principal); I25.10 Atherosclerotic heart disease of native coronary artery without angina pectoris; E78.5 Hyperlipidemia, unspecified; I10 Essential (primary) hypertension; M19.90 Unspecified osteoarthritis, unspecified site; M41.9 Scoliosis, unspecified; Z79.82 Long term (current) use of aspirin; Z79.899 Other long term (current) drug therapy
CPT/HCPCS: 87635; 71046; 99284; Q0243

== ENCOUNTER 2023-02-28 06:21 | Day surgery (SDC) | payer MEDICARE, OTHER ==
[~2023-02-28 06:21] MED LIST changes: -ACETAMINOPHEN TAB 500 MG TAB PO ONE; +DEXAMETHASONE SOD PHOSPHATE 4 MG/ML 1 ML VIAL IV ONE; +HEPARIN SODIUM,PORCINE/PF 5,000 UNIT/0.5 ML SYRINGE SQ PRN; +LACTATED RINGERS 1,000 ML IV SCH; -LIDOCAINE 1% (10MG/ML) FOR IV START INTRADERMA PRN; -MELOXICAM 7.5 MG TAB PO ONE; +Pre Op ABX Message 1 EACH MISC MISCELLANE ONE; -TRANEXAMIC ACID 1,000 MG in SODIUM CHLORIDE 0.9% 100 ML IVPB ONE
--- NOTE | 2023-02-28 06:58 | P.GSHP ---
History of Present Illness H&P Date: 02/28/23 CHIEF COMPLAINT: Scalp tumor HISTORY OF PRESENT ILLNESS: The patient is a 82 year-old male with over 1 month history of growing right scalp mass. He presents today for surgical excision. PAST MEDICAL HISTORY: Please see list. PAST SURGICAL HISTORY: Please see list. MEDICATIONS: Please see list. ALLERGIES: Please see list. SOCIAL HISTORY: No illicit drug use FAMILY HISTORY: No reports of Crohn disease or ulcerative colitis. REVIEW OF ORGAN SYSTEMS: CONSTITUTIONAL: No reports of fevers or chills. GI: Denies any blood in stools or constipation. PHYSICAL EXAM: VITAL SIGNS: Stable SKIN: Well perfused. Good skin turgor. 5 cm tumore overlying the right scalp. Musculoskeletal: No clubbing cyanosis or edema GENERAL: Well developed and in no acute distress. Pleasant. HEENT: No sclera icterus. Extraocular movements grossly intact. Moist buccal mucosa. Head is atraumatic, normocephalic. Hears conversational speech. No nasal drainage. NECK: Supple without lymphadenopathy. No JV distention. CHEST: Non-labored respirations and equal bilateral excursions. CARDIOVASCULAR: Regular rate and rhythm. Palpable 2+ radial pulses. ABDOMEN: Soft. Non-tender. Nondistended. NEUROLOGIC: No focal or lateralizing signs. PSYCH: Appropriate affect. Alert and oriented to person, place and time. ASSESSMENT: 1. Right scalp tumor, over 5 cm 2. Anemia 3. Renal disease PLAN: 1. Will proceed of excision of posterior scalp tumor 2. DVT prophylaxis. 3. Antibiotic prophylaxis. 4. Time of recovery, at least one week. 5. Benefits and risks including numbness, decreased sensation, pain, cosmetic deformity were reviewed 6. Recommend CBC and CMP Past Medical History Past Medical History: Coronary Artery Disease (CAD), Eye Disorder, Hyperlipidemia, Hypertension, Myocardial Infarction (MD), Osteoarthritis (OA), Prostate Disorder Additional Past Medical History / Comment(s): Obesity, scoliosis of the spine, BPH, chronic back pain, bilateral macular degeneration Last Myocardial Infarction Date:: 2015 History of Any Multi-Drug Resistant Organisms: None Reported Past Surgical History: Coronary Bypass/CABG, Heart Catheterization, Joint Replacement Additional Past Surgical History / Comment(s): Total L hip, bilateral knee replacement, cataract removal, CABG and aortic valve (04/26/2016) Past Anesthesia/Blood Transfusion Reactions: No Reported Reaction Smoking Status: Former smoker - Past Family History Father Family Medical History: Cancer Additional Family Medical History / Comment(s): colon cancer Medications and Allergies Home Medications Medication Instructions Recorded Confirmed Type Finasteride [Proscar] 5 mg PO DAILY 04/13/16 02/26/23 History Multivitamin [Men's Multi-Vitamin] 1 tab PO DAILY 04/13/16 02/26/23 History [place]-3 Fatty Acids/Fish Oil [Fish 1 cap PO TID 04/13/16 02/26/23 History Oil 1,000 mg Softgel] Furosemide [Lasix] 40 mg PO DAILY tab 05/07/16 02/26/23 Rx Doxazosin [Cardura] 4 mg PO HS 02/24/20 02/26/23 History Ubidecarenone [Co Q-10] 100 mg PO DAILY 02/24/20 02/26/23 History oxyBUTYnin chloride [Ditropan] 5 mg PO BID 02/24/20 02/26/23 History Aspirin [Adult Low Dose Aspirin EC] 81 mg PO HS 03/21/21 02/26/23 History Atorvastatin [Lipitor] 40 mg PO HS 03/21/21 02/26/23 History Glucosamine/Chondr Garcia A Sod [Osteo 1 tab PO HS 03/21/21 02/26/23 History Bi-Flex Caplet] Magnesium Oxide [Gerardo] 500 mg PO TID 03/21/21 02/26/23 History Metoprolol Succinate (ER) [Toprol 25 mg PO HS 03/21/21 02/26/23 History Xl] traMADol HCL 50 mg PO HS PRN 03/21/21 02/26/23 History Vit C/E/Zn/Coppr/Lutein/Zeaxan 1 tab PO BID 02/26/23 02/26/23 History [Preservision Areds 2 Chew Tab] Allergies Allergy/AdvReac Type Severity Reaction Status Date / Time morphine Allergy Itching Verified 02/28/23 06:49 Surgical - Exam Vital Signs Temp Pulse BP Pulse Ox 98 F 67 133/61 97 02/28/23 06:54 02/28/23 06:54 02/28/23 06:54 02/28/23 06:54
[2023-02-28] MEDS ORDERED: fentaNYL (PF) 50 MCG/ML 2 ML AMP IV PRN (07:00)
[2023-02-28] MEDS ORDERED: MIDAZOLAM 2 MG/2 ML VIAL IV PRN (07:00)
[2023-02-28 07:27] LABS: Basophils % (A) 0 %; Eosinophils # (A) 0.3 k/uL (0-0.7); Eosinophils % (A) 3 %; HCT 40.1 % (39.0-53.0); HGB 13.6 gm/dL (13.0-17.5); Lymphocytes # (A) 2.5 k/uL (1.0-4.8); Lymphocytes % (A) 29 %; MCH 29.6 pg (25.0-35.0); MCV 87.1 fL (80.0-100.0); Mean Platelet Volume 7.7; Monocytes # (A) 0.6 k/uL (0-1.0); Monocytes % (A) 7 %; Neutrophils % (A) 58 %; Platelet Count 181 k/uL (150-450); RBC 4.61 m/uL (4.30-5.90); WBC 8.5 k/uL (3.8-10.6)
[2023-02-28 07:33] LABS: ALT 23 U/L (4-49); AST 26 U/L (17-59); African American GFR (CKD) 47 (>60 ml/min/1.73 sqM); Albumin 3.9 g/dL (3.5-5.0); Alkaline Phosphatase 60 U/L (38-126); Anion Gap 10 mmol/L; Blood Urea Nitrogen 31 mg/dL (9-20); Carbon Dioxide 24 mmol/L (22-30); Chloride 105 mmol/L (98-107); Glucose 102 mg/dL (74-99); Non-African American GFR(CKD) 41 (>60 ml/min/1.73 sqM); Potassium 4.5 mmol/L (3.5-5.1); Sodium 139 mmol/L (137-145); Total Bilirubin 0.9 mg/dL (0.2-1.3); Total Protein 6.9 g/dL (6.3-8.2)
[2023-02-28] MEDS ORDERED: fentaNYL (PF) 50 MCG/ML 2 ML AMP ONE (07:35)
[2023-02-28] MEDS ORDERED: ePHEDrine 50 MG/ML 1 ML VIAL ONE (07:35)
[2023-02-28] MEDS ORDERED: PHENYLEPHRINE 10 MG/ML 5 ML VIAL ONE (07:35)
[2023-02-28] MEDS ORDERED: LIDOCAINE 1% INJ 10MG/ML (20 ML MDV) ONE (07:35)
[2023-02-28] MEDS ORDERED: ETOMIDATE 2 MG/ML 10 ML VIAL ONE (07:35)
[2023-02-28] MEDS ORDERED: LIDOCAINE 1%-EPI 1:100,000 50 ML VIAL SQ ONE (07:40)
[2023-02-28 09:06] VITALS: RESP 16; TEMP 97.4
[2023-02-28 10:40] VITALS: BP 110/57; PULSE 79
--- NOTE | 2023-02-28 18:36 | P.OP ---
Date of Procedure: 02/28/23 Description of Procedure: SURGEON: GINGER RIVAS MD PREOPERATIVE DIAGNOSES: 1. Right posterior scalp tumor, 6 cm 2. Hypertensive heart disease with congestive heart failure 3. Morbid obesity due to excess calories, BMI 35.9 4. Hyperlipidemia 5. Benign prostate hypertrophy with outflow obstruction 6. History of myocardial infarction 7. Coronary artery disease 8. Bilateral macular degeneration 9. Impairment sensorineural hearing 10. History of CABG and cardiac catheterization POSTOPERATIVE DIAGNOSES: 1. Right posterior scalp tumor, 6 cm 2. Hypertensive heart disease with congestive heart failure 3. Morbid obesity due to excess calories, BMI 35.9 4. Hyperlipidemia 5. Benign prostate hypertrophy with outflow obstruction 6. History of myocardial infarction 7. Coronary artery disease 8. Bilateral macular degeneration 9. Impairment sensorineural hearing 10. History of CABG and cardiac catheterization PROCEDURES PERFORMED: 1. Excision of right occipital scalp tumor, 6 cm, subfascial with intermediate closure, 8-cm Anesthesia: GETA, local Estimated Blood Loss (ml): 20 Pathology: other (scalp mass) Condition: stable Disposition: same day COMPLICATIONS: None. Operative Findings: 1. Excision of deep subfascial tumor, 6 cm, extending into the periosteum. INDICATIONS: The patient is a 82-year-old male who presents with scalp tumors. Benefits and risks of surgical intervention were described including bleeding, infection. Informed consent was obtained. DESCRIPTION OR PROCEDURE: In the preoperative area, the area of concern was marked with indelible marker. Patient was brought into the operating room. After general induction, he was positioned in supine position. The scalp was prepped and draped in a standard sterile fashion. Timeout protocol was confirmed with the surgical team regarding the patient's name, procedure to be performed including preoperative medications. DVT prophylaxis was confirmed. A field block was placed of the left occipital scalp. A transverse incision using #15 blade was made along the marking into the deep subcutaneous tissue. Electro-Bovie cautery was used to incise to the fascia with dissection and elevation of the mass. The mass was circumferentially dissected to the periosteum and subfascial. 3-0 Vicryl for the deep subcutaneous tissue was placed. Final running suture of 4-0 Monocryl was placed to completely close the dermis. The skin was cleansed with hydrogen peroxide followed by exofin tape and 4x4 optifoam dressing. A pressure dressing using Coban was applied to minimize space. At the end of the procedure, needle, sponge, and instrument count was verified correct by mapping technician. The patient tolerated the procedure well. Plan - Discharge Summary Discharge Rx Participant: No New Discharge Prescriptions: New Acetaminophen Tab [Tylenol Tab] 1,000 mg PO Q6HR PRN #30 tablet PRN Reason: Pain Continue Multivitamin [Men's Multi-Vitamin] 1 tab PO DAILY Finasteride [Proscar] 5 mg PO DAILY Furosemide [Lasix] 40 mg PO DAILY tab oxyBUTYnin chloride [Ditropan] 5 mg PO BID Doxazosin [Cardura] 4 mg PO HS Ubidecarenone [Co Q-10] 100 mg PO DAILY Vit C/E/Zn/Coppr/Lutein/Zeaxan [Preservision Areds 2 Chew Tab] 1 tab PO BID Magnesium Oxide [Gerardo] 500 mg PO TID traMADol HCL 50 mg PO HS PRN PRN Reason: Pain Glucosamine/Chondr Garcia A Sod [Osteo Bi-Flex Caplet] 1 tab PO HS Aspirin [Adult Low Dose Aspirin EC] 81 mg PO HS Metoprolol Succinate (ER) [Toprol XL] 25 mg PO HS Atorvastatin [Lipitor] 40 mg PO HS Discontinued [place]-3 Fatty Acids/Fish Oil [Fish Oil 1,000 mg Softgel] 1 cap PO TID Discharge Medication List Finasteride [Proscar] 5 mg PO DAILY 04/13/16 [History] Multivitamin [Men's Multi-Vitamin] 1 tab PO DAILY 04/13/16 [History] Furosemide [Lasix] 40 mg PO DAILY tab 05/07/16 [Rx] Doxazosin [Cardura] 4 mg PO HS 02/24/20 [History] Ubidecarenone [Co Q-10] 100 mg PO DAILY 02/24/20 [History] oxyBUTYnin chloride [Ditropan] 5 mg PO BID 02/24/20 [History] Aspirin [Adult Low Dose Aspirin EC] 81 mg PO HS 03/21/21 [History] Atorvastatin [Lipitor] 40 mg PO HS 03/21/21 [History] Glucosamine/Chondr Garcia A Sod [Osteo Bi-Flex Caplet] 1 tab PO HS 03/21/21 [History] Magnesium Oxide [Gerardo] 500 mg PO TID 03/21/21 [History] Metoprolol Succinate (ER) [Toprol XL] 25 mg PO HS 03/21/21 [History] traMADol HCL 50 mg PO HS PRN 03/21/21 [History] Vit C/E/Zn/Coppr/Lutein/Zeaxan [Preservision Areds 2 Chew Tab] 1 tab PO BID 02/26/23 [History] Acetaminophen Tab [Tylenol Tab] 1,000 mg PO Q6HR PRN #30 tablet 02/28/23 [Rx] Follow up Appointment(s)/Referral(s): Ginger Rivas MD [STAFF PHYSICIAN] - 03/04/23 4:30 pm Patient Instructions/Handouts: *Surgery [facility] - (Anesthesia) Discharge Instructions Outpatient Surgery, Care For Your Absorbable Stitches (GEN) Activity/Diet/Wound Care/Special Instructions: DO NOT REMOVE DRESSING. May shower. Diet as tolerated. Use Tylenol scheduled for the next 24-48 hours for best pain relief. Use ice along incisions for today to prevent swelling. Discharge Disposition: HOME SELF-CARE
== END 2023-02-28 10:40 | disposition home or self-care (01) ==
LOC: OR 06:21
PROVIDERS: ATTEND Surgery Plastic and Reconstructive Surgery
DX: D23.4 Other benign neoplasm of skin of scalp and neck (principal); D17.9 Benign lipomatous neoplasm, unspecified; I11.0 Hypertensive heart disease with heart failure; E66.01 Morbid (severe) obesity due to excess calories; Z68.35 Body mass index [BMI] 35.0-35.9, adult; E78.5 Hyperlipidemia, unspecified; N40.0 Benign prostatic hyperplasia without lower urinary tract symptoms; I25.2 Old myocardial infarction; I25.10 Atherosclerotic heart disease of native coronary artery without angina pectoris; H35.30 Unspecified macular degeneration; H90.3 Sensorineural hearing loss, bilateral; Z95.1 Presence of aortocoronary bypass graft; M41.9 Scoliosis, unspecified; M19.90 Unspecified osteoarthritis, unspecified site; G89.29 Other chronic pain; Z96.653 Presence of artificial knee joint, bilateral; Z98.49 Cataract extraction status, unspecified eye; Z98.890 Other specified postprocedural states; Z87.891 Personal history of nicotine dependence; Z80.0 Family history of malignant neoplasm of digestive organs; Z79.83 Long term (current) use of bisphosphonates; Z79.01 Long term (current) use of anticoagulants; Z79.891 Long term (current) use of opiate analgesic; Z79.899 Other long term (current) drug therapy; Z88.5 Allergy status to narcotic agent
CPT/HCPCS: 88304; 80053; 85025; 21012; 11426; J1100; J0690; J2405; J2001; J3010; J1644; J2371